=== PATIENT | female | born 1940 | race Caucasian/White ===

== ENCOUNTER 2017-02-03 21:49 | Inpatient (IN) | payer MEDICARE, OTHER ==
[~2017-02-03] VITALS: Ht 160 cm; Wt 63.5 kg
[~2017-02-03 21:49] MED LIST: ALPR0.5T3 PO; AMIO200T PO; ASPI-516 CHEW; Aquaphor Oint TOPICAL; BISA10SU3 RECTAL; CALC200S NASAL; CHLO.12%30 SWISH-SPIT; COMMODE PAIL WI1 MIS; COUM10TA PO; DILT60TA PO; DOCU100C15 PO; FAMO40TA PO; FENT50DI T-DERMAL; HOSP BED1; METO10TA PO; MIRA3350 PO; Metoclopramide Liq PO; QUET1TAB8 PO; SUCR1TAB PO; TYLE325T PO; WHEEMIS3
[2017-02-03] MEDS ORDERED: FAMO20TA2 PO (22:01)
[2017-02-03] MEDS ORDERED: COUM5TAB PO (22:31)
[2017-02-03] MEDS ORDERED: ALPR.25 PO (22:34)
[2017-02-03 23:35] VITALS: BP 127/59; PULSE 68; RESP 28; TEMP 98.4; O2SAT 99
[2017-02-03 23:55] VITALS: O2SAT 93
[2017-02-04] VITALS (21 sets, daily range): BP systolic 107–175; BP diastolic 56–89; PULSE 55–104; RESP 19–32; TEMP 98.4–100.2; O2SAT 91–100
[2017-02-04] MEDS ORDERED: ONDANSETRON HCL 4 MG/2 ML VIAL IVP PRN
[2017-02-04] MEDS ORDERED: NALOXONE HCL 0.4 MG/ML AMP IV PUSH PRN
[2017-02-04] MEDS ORDERED: BISACODYL 10 MG SUPP RECTAL PRN ×2 (00:15→01:15)
[2017-02-04] MEDS ORDERED: ACETAMINOPHEN 325 MG TAB PO PRN (00:15)
--- NOTE | 2017-02-04 00:22 | PD.CONS ---
[facility] Service Critical Care Medicine Consult Requested By Primary Care Physician Naeem Monteiro M.D. History of Present Illness 76-year-old female admitted to [place] rehabilitation medicine services for rehabilitation management after prolonged hospitalization at [facility]. She was admitted to [facility] with acute coronary syndrome, status post stent placement in October last year. The patient was admitted with shortness of breath active chest pain and went into V. fib cardiopulmonary arrest. At that time her potassium was 7.8 and patient underwent emergent hemodialysis. Hospital course was complicated with sepsis ESBL, respiratory failure requiring tracheostomy, PEG care for tube feedings and hemodialysis Wednesdays. Patient had a Vas-Cath placed on the left for dialysis and the port placed on the right. Patient was successfully decannulated and transferred to [facility] for further rehabilitation off deconditioning. 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 Last night, shortly after her hemodialysis, patient developed respiratory distress hypoxemia at 80s. She was immediately placed on BiPAP with improvement in oxygenation and respiratory condition and is admitted to ICU under critical care service. Review of Systems ROS Unable to obtain patient was facemask BiPAP Past Family Social History Allergies: Coded Allergies: shellfish derived (Unverified Allergy, Unknown, 11/12/16) Past Medical History Hypertension Coronary artery disease, status post stent placement End-stage renal disease on dialysis Past Surgical History Cholecystectomy Tracheostomy PEG placement Reported Medications Reported Meds & Active Scripts Active Xanax (Alprazolam) 0.25 Mg Tab 0.25 Mg PO Q8H PRN Coumadin (Warfarin) 5 Mg Tab 5 Mg PO DAILY@1600 Famotidine 20 Mg Tab 20 Mg PO HS [Metoclopramide Liq] 10 MG/10 ML Syrp 5 Mg PO QID [Aquaphor Oint] 50 APPLIC/50 GM Oint 1 Applic TOPICAL Q12HR Commode With Arms (Device) 1 Mis Mis Ea .ROUTE DIRECTED Wheelchair (Device) 1 Mis Mis Ea .ROUTE DIRECTED Hospital Bed - Electric 1 Ea Ea Ea .ROUTE DIRECTED Reported Sucralfate 1 Gram Tab 1 Gm PO TID on empty stomach Quetiapine (Quetiapine Fumarate) 100 Mg Tab 100 Mg PO BID Miralax Powder (Polyethylene Glycol 3350 Powder) 17 Gm Powd 17 Gm PO DAILY Mix and dissolve one measuring cap-ful (17 grams) in water or juice. Fentanyl Patch 72 HR (Fentanyl) 50 Mcg/Hr Patch 50 Mcg T-DERMAL Q72H Remove old patch when new one placed. Docusate Sodium 100 Mg Cap 100 Mg PO BID Diltiazem (Diltiazem HCl) 60 Mg Tab 60 Mg PO QID Calcitonin ([place]) Nasal [place] (Calcitonin [place]) 200 Units/Act Soln 1 [place] NASAL DAILY Alternate nostrils daily. Bisacodyl Supp (Bisacodyl) 10 Mg Supp 10 Mg RECTAL DAILY PRN Aspirin 81 Mg Chew 81 Mg CHEW DAILY Amiodarone (Amiodarone HCl) 200 Mg Tab 200 Mg PO DAILY Tylenol (Acetaminophen) 325 Mg Tab 325 Mg PO Q6H PRN Active Ordered Medications Current Medications Medications (Trade) Dose Ordered Sig/Yue Route PRN Reason Start Time Stop Time Status Last Admin Dose Admin Sodium Chloride (NS Flush) 2 ml UNSCH PRN IV FLUSH FLUSH AFTER USING IV ACCESS 02/04/17 00:00 UNV Sodium Chloride (NS Flush) 2 ml BID IV FLUSH 02/04/17 09:00 UNV Ondansetron HCl (Zofran Inj) 4 mg Q6H PRN IVP NAUSEA OR VOMITING 02/04/17 00:00 UNV Naloxone HCl (Narcan Inj) 0.4 mg UNSCH PRN IV PUSH SEE LABEL COMMENTS 02/04/17 00:00 UNV Family History Family history positive for hypertension diabetes Social History Smoker quit 15 years ago No history of alcohol use Physical Exam Vital Signs Vital Signs Date Time Temp Pulse Resp B/P (MAP) Pulse Ox O2 Delivery O2 Flow Rate FiO2 02/03/17 23:55 93 35 02/03/17 23:35 98.4 68 28 127/59 (81) 99 Physical Exam GENERAL: Well-nourished, well-developed patient. On facemask BiPAP SKIN: Warm and dry. HEAD: Normocephalic. EYES: No scleral icterus. No injection or drainage. NECK: Supple, trachea midline. No JVD or lymphadenopathy. CARDIOVASCULAR: Regular rate and rhythm without murmurs, gallops, or rubs. RESPIRATORY: Breath sounds equal bilaterally. No accessory muscle use. GASTROINTESTINAL: Abdomen soft, non-tender, nondistended. MUSCULOSKELETAL: No cyanosis, or edema. BACK: Nontender without obvious deformity. NEURO EXAM: Mental Status: Patient is arousable awake in respiratory distress on facemask BiPAP Cranial Nerves: Pupils are round, reactive to light. Reflexes: Biceps, patellar, and Achilles are 2/4 bilaterally. No clonus. Assessment and Plan Assessment and Plan Respiratory failure - Fluid overload - May require additional hemodialysis today - BiPAP for now, tolerating well and improving - Monitor in ICU - DuoNeb scheduled and when necessary End-stage renal disease - Hemodialysis per nephrology Hypertension - Currently normotensive - Hydralazine and labetalol when necessary to keep SBP less than 150 Coronary artery disease - status post stent placement - Aspirin - Statins Encephalopathy - Status post cardiac arrest - Seroquel History of V. fib arrest - Amiodarone - Diltiazem - Coumadin ??? DVT GI prophylaxis - Teds SCDs - Coumadin - Pepcid Critical Care: The total critical care time was 35 minutes. Time to perform other separately billable procedures was not included in the critical care time. Arnol Arriaza MD Feb 04, 2017 00:22
[2017-02-04] MEDS ORDERED: MAGNESIUM HYDROXIDE SUSP 30 ML CUP PO PRN (01:15)
[2017-02-04] MEDS ORDERED: LACTULOSE SYRUP 20 GM/30 ML CUP PO PRN (01:15)
[2017-02-04] MEDS ORDERED: SODIUM CHLORIDE 0.9% FLUSH 10 ML FLUSH IV FLUSH PRN ×2 (01:15)
[2017-02-04] MEDS ORDERED: CHLORHEXIDINE GLUCONATE 2 % 1 PACK (2 CLOTHS) TOP PRN (01:15)
[2017-02-04] MEDS ORDERED: SENNOSIDES 8.6 MG TAB PO PRN (01:15)
[2017-02-04] MEDS ORDERED: HEPARIN SODIUM - SQ 10,000 UNITS/ML VIAL SQ SCH (01:15)
[2017-02-04] MEDS ORDERED: ONDANSETRON HCL 4 MG/2 ML VIAL IV PUSH PRN (01:15)
[2017-02-04] MEDS ORDERED: MISCELLANEOUS NURSING INFORMATION XX SCH (01:15)
--- NOTE | 2017-02-04 01:21 | HHI.HP ---
HPI Service Critical Care Medicine Primary Care Physician Naeem Monteiro M.D. Admission Diagnosis Diagnosis: Travel History International Travel<30 Days: No Contact w/Intl Traveler <30 Da: No Traveled to Known Affected Are: No History of Present Illness 76-year-old female admitted to [facility] medicine services for rehabilitation management after prolonged hospitalization at [facility]. She was admitted to [facility] with acute coronary syndrome, status post stent placement in October last year. The patient was admitted with shortness of breath active chest pain and went into V. fib cardiopulmonary arrest. At that time her potassium was 7.8 and patient underwent emergent hemodialysis. Hospital course was complicated with sepsis ESBL, respiratory failure requiring tracheostomy, PEG care for tube feedings and hemodialysis Wednesdays. Patient had a Vas-Cath placed on the left for dialysis and the port placed on the right. Patient was successfully decannulated and transferred to [facility] for further rehabilitation off deconditioning. 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 Last night, shortly after her hemodialysis, patient developed respiratory distress hypoxemia at 80s. She was immediately placed on BiPAP with improvement in oxygenation and respiratory condition and is admitted to ICU under critical care service. Review of Systems ROS Unable to obtain patient was facemask BiPAP Past Family Social History Allergies: Coded Allergies: shellfish derived (Unverified Allergy, Unknown, 11/12/16) Past Medical History Hypertension Coronary artery disease, status post stent placement End-stage renal disease on dialysis Past Surgical History Cholecystectomy Tracheostomy PEG placement Reported Medications Reported Meds & Active Scripts Active Xanax (Alprazolam) 0.25 Mg Tab 0.25 Mg PO Q8H PRN Coumadin (Warfarin) 5 Mg Tab 5 Mg PO DAILY@1600 Famotidine 20 Mg Tab 20 Mg PO HS [Metoclopramide Liq] 10 MG/10 ML Syrp 5 Mg PO QID [Aquaphor Oint] 50 APPLIC/50 GM Oint 1 Applic TOPICAL Q12HR Commode With Arms (Device) 1 Mis Mis Ea .ROUTE DIRECTED Wheelchair (Device) 1 Mis Mis Ea .ROUTE DIRECTED Hospital Bed - Electric 1 Ea Ea Ea .ROUTE DIRECTED Reported Sucralfate 1 Gram Tab 1 Gm PO TID on empty stomach Quetiapine (Quetiapine Fumarate) 100 Mg Tab 100 Mg PO BID Miralax Powder (Polyethylene Glycol 3350 Powder) 17 Gm Powd 17 Gm PO DAILY Mix and dissolve one measuring cap-ful (17 grams) in water or juice. Fentanyl Patch 72 HR (Fentanyl) 50 Mcg/Hr Patch 50 Mcg T-DERMAL Q72H Remove old patch when new one placed. Docusate Sodium 100 Mg Cap 100 Mg PO BID Diltiazem (Diltiazem HCl) 60 Mg Tab 60 Mg PO QID Calcitonin ([place]) Nasal [place] (Calcitonin [place]) 200 Units/Act Soln 1 [place] NASAL DAILY Alternate nostrils daily. Bisacodyl Supp (Bisacodyl) 10 Mg Supp 10 Mg RECTAL DAILY PRN Aspirin 81 Mg Chew 81 Mg CHEW DAILY Amiodarone (Amiodarone HCl) 200 Mg Tab 200 Mg PO DAILY Tylenol (Acetaminophen) 325 Mg Tab 325 Mg PO Q6H PRN Active Ordered Medications Current Medications Medications (Trade) Dose Ordered Sig/Yue Route PRN Reason Start Time Stop Time Status Last Admin Dose Admin Sodium Chloride (NS Flush) 2 ml UNSCH PRN IV FLUSH FLUSH AFTER USING IV ACCESS 02/04/17 00:00 Sodium Chloride (NS Flush) 2 ml BID IV FLUSH 02/04/17 09:00 Ondansetron HCl (Zofran Inj) 4 mg Q6H PRN IVP NAUSEA OR VOMITING 02/04/17 00:00 Naloxone HCl (Narcan Inj) 0.4 mg UNSCH PRN IV PUSH SEE LABEL COMMENTS 02/04/17 00:00 Acetaminophen (Tylenol) 325 mg Q6H PRN PO INCREASED TEMPERATURE 02/04/17 00:15 Alprazolam (Xanax) 0.25 mg Q8H PRN PO ANXIETY 02/04/17 00:15 Amiodarone HCl (Cordarone) 200 mg DAILY PO 02/04/17 09:00 Aspirin (Aspirin Chew) 81 mg DAILY CHEW 02/04/17 09:00 Bisacodyl (Dulcolax Supp) 10 mg DAILY PRN RECTAL CONSTIPATION 02/04/17 00:15 Diltiazem HCl (Cardizem) 60 mg QID PO 02/04/17 09:00 Docusate Sodium (Colace) 100 mg BID PO 02/04/17 09:00 Famotidine (Pepcid) 20 mg HS PO 02/04/17 21:00 Fentanyl (Duragesic 50 Mcg Patch.72 Hr) 1 patch Q72H T-DERMAL 02/04/17 01:00 Polyethylene Glycol (Miralax) 17 gm DAILY PO 02/04/17 09:00 Quetiapine Fumarate (SEROquel) 100 mg BID PO 02/04/17 09:00 Sucralfate (Carafate) 1 gm TID PO 02/04/17 09:00 Warfarin Sodium (Coumadin) 5 mg DAILY@1600 PO 02/04/17 16:00 Miscellaneous Information 1 Q72H T-DERMAL 02/04/17 01:00 Family History Family history positive for hypertension diabetes Social History Smoker quit 15 years ago No history of alcohol use Physical Exam Vital Signs Vital Signs Date Time Temp Pulse Resp B/P (MAP) Pulse Ox O2 Delivery O2 Flow Rate FiO2 02/03/17 23:55 93 35 02/03/17 23:35 98.4 68 28 127/59 (81) 99 Physical Exam GENERAL: Well-nourished, well-developed patient. On facemask BiPAP SKIN: Warm and dry. HEAD: Normocephalic. EYES: No scleral icterus. No injection or drainage. NECK: Supple, trachea midline. No JVD or lymphadenopathy. CARDIOVASCULAR: Regular rate and rhythm without murmurs, gallops, or rubs. RESPIRATORY: Breath sounds equal bilaterally. No accessory muscle use. GASTROINTESTINAL: Abdomen soft, non-tender, nondistended. MUSCULOSKELETAL: No cyanosis, or edema. BACK: Nontender without obvious deformity. NEURO EXAM: Mental Status: Patient is arousable awake in respiratory distress on facemask BiPAP Cranial Nerves: Pupils are round, reactive to light. Reflexes: Biceps, patellar, and Achilles are 2/4 bilaterally. No clonus. Laboratory Laboratory Tests Test 02/03/17 23:00 Caprini VTE Risk Assessment Caprini VTE Risk Assessment: Mod/High Risk (score >= 2) Caprini Risk Assessment Model Point Value = 1 Point Value = 2 Point Value = 3 Point Value = 5 Age 41-60 Minor surgery BMI > 25 kg/m2 Swollen legs Varicose veins or History of unexplained or recurrent spontaneous Oral contraceptives or hormone replacement Sepsis (< 1 month) Serious lung disease, including pneumonia (< 1 month) Abnormal pulmonary function Acute myocardial infarction Congestive heart failure (< 1 month) History of inflammatory bowel disease Medical patient at bed rest Age 61-74 Arthroscopic surgery Major open surgery (> 45 min) Laparoscopic surgery (> 45 min) Malignancy Confined to bed (> 72 hours) Immobilizing plaster cast Central venous access Age >= 75 History of VTE Family history of VTE Factor V Leiden Prothrombin [id number] Lupus anticoagulant Anticardiolipin antibodies Elevated serum homocysteine Heparin-induced thrombocytopenia Other congenital or acquired thrombophilia Stroke (< 1 month) Elective arthroplasty Hip, pelvis, or leg fracture Acute spinal cord injury (< 1 month) Prophylaxis Regimen Total Risk Factor Score Risk Level Prophylaxis Regimen 0-1 Low Early ambulation 2 Moderate Order ONE of the following: *Sequential Compression Device (SCD) *Heparin 5000 units SQ BID 3-4 Higher Order ONE of the following medications: *Heparin 5000 units SQ TID *Enoxaparin/Lovenox 40 mg SQ daily (WT < 150 kg, CrCl > 30 mL/min) *Enoxaparin/Lovenox 30 mg SQ daily (WT < 150 kg, CrCl > 10-29 mL/min) *Enoxaparin/Lovenox 30 mg SQ BID (WT < 150 kg, CrCl > 30 mL/min) AND/OR *Sequential Compression Device (SCD) 5 or more Highest Order ONE of the following medications: *Heparin 5000 units SQ TID (Preferred with Epidurals) *Enoxaparin/Lovenox 40 mg SQ daily (WT < 150 kg, CrCl > 30 mL/min) *Enoxaparin/Lovenox 30 mg SQ daily (WT < 150 kg, CrCl > 10-29 mL/min) *Enoxaparin/Lovenox 30 mg SQ BID (WT < 150 kg, CrCl > 30 mL/min) AND *Sequential Compression Device (SCD) Assessment and Plan Assessment and Plan Respiratory failure - Fluid overload - May require additional hemodialysis today - BiPAP for now, tolerating well and improving - Monitor in ICU - DuoNeb scheduled and when necessary End-stage renal disease - Hemodialysis per nephrology Hypertension - Currently normotensive - Hydralazine and labetalol when necessary to keep SBP less than 150 Coronary artery disease - status post stent placement - Aspirin - Statins Encephalopathy - Status post cardiac arrest - Seroquel History of V. fib arrest - Amiodarone - Diltiazem - Coumadin ??? DVT GI prophylaxis - Teds SCDs - Coumadin - Pepcid Critical Care: The total critical care time was 35 minutes. Time to perform other separately billable procedures was not included in the critical care time. Arnol Arriaza MD Feb 04, 2017 01:20
[2017-02-04 02:45] LABS: AUTOMATED NEUTROPHIL # 6.9 TH/MM3 (1.8-7.7); BASOPHIL # 0.1 TH/MM3 (0-0.2); BASOPHIL % 0.7 % (0.0-2.0); EOSINOPHIL # 0.1 TH/MM3 (0-0.4); EOSINOPHIL % 0.7 % (0.0-4.0); HEMATOCRIT 23.7 % (35.0-46.0); HEMO FLAGS DIFF FINAL; LYMPH % 4.9 % (9.0-44.0); LYMPHOCYTE # 0.4 TH/MM3 (1.0-4.8); MEAN CELL VOLUME 91.4 FL (80.0-100.0); MEAN CORPUSCULAR HEMOGLOBIN 29.1 PG (27.0-34.0); MEAN CORPUSCULAR HGB CONC 31.9 % (32.0-36.0); MONO % 4.1 % (0.0-8.0); NEUT % 89.6 % (16.0-70.0); PLATELET COUNT 160 TH/MM3 (150-450); RED CELL DISTRIBUTION WIDTH 18.1 % (11.6-17.2); WHITE BLOOD COUNT 7.7 TH/MM3 (4.0-11.0)
[2017-02-04 03:00] LABS: ANION GAP 7 MEQ/L (5-15); AST (GOT) 19 U/L (15-37); BICARBONATE 32.1 MEQ/L (21.0-32.0); BLOOD UREA NITROGEN 29 MG/DL (7-18); CHLORIDE 96 MEQ/L (98-107); GLOMERULAR FILTRATION RATE 30 ML/MIN (>89); POTASSIUM 4.2 MEQ/L (3.5-5.1); SODIUM (NA) 135 MEQ/L (136-145)
[2017-02-04 03:03] LABS: ALKALINE PHOSPHATASE 99 U/L (45-117); ALT (GPT) 22 U/L (10-53); TOTAL BILIRUBIN ADULT 0.4 MG/DL (0.2-1.0)
[2017-02-04] MEDS: ALPRAZolam 0.25 MG TAB PO PRN ×3 (03:24→20:40)
[2017-02-04] MEDS: RESP: ALBUTEROL 2.5 MG/IPRATROPIUM 0.5 MG NEB (SCH) INH ×4 (03:36→21:35)
[2017-02-04] MEDS: CHLORHEXIDINE GLUCONATE 2 % 1 PACK (2 CLOTHS) TOP SCH (04:00)
[2017-02-04 06:44] LABS: BLOOD GAS BASE EXCESS 7.2 mmol/L (-2-2); BLOOD GAS HCO3 32 mmol/L (22-26); BLOOD GAS METHEMOGLOBIN 1.2 % (0-2); BLOOD GAS O2 HGB SATURATION 86 % (90-100); BLOOD GAS PCO2 49 mmHg (38-42); BLOOD GAS PO2 54 mmHg (61-120); BLOOD GAS TOTAL HGB 7.4 G/DL (12.0-16.0); TEMP CORR TO 98.6
[2017-02-04 06:46] LABS: CRITICAL VALUE YES; DRAW SITE LT RADIAL; FIO2 35 %; NUMBER OF ARTERIAL PUNCTURES 1; OXYGEN DEVICE BIPAP; STAT NO; ULNAR PULSE PRESENT
[2017-02-04 06:47] LABS: VENT SETTINGS SEE COMMENT.
[2017-02-04] MEDS: SUCRALFATE 1 GM TAB PO SCH ×3 (08:09→16:49)
[2017-02-04] MEDS: SODIUM CHLORIDE 0.9% FLUSH 10 ML FLUSH IV FLUSH SCH ×2 (08:10→20:41)
[2017-02-04] MEDS: ASPIRIN 81 MG CHEW TAB CHEW SCH (08:10)
[2017-02-04] MEDS: DILTIAZEM HCL 60 MG TAB PO SCH ×4 (08:10→20:40)
[2017-02-04] MEDS: QUEtiapine FUMARATE 100 MG TAB PO SCH ×2 (08:10→20:40)
[2017-02-04] MEDS: AMIODARONE 200 MG TAB PO SCH (08:10)
[2017-02-04] MEDS: DOCUSATE SODIUM 100 MG CAP PO SCH ×2 (08:11→20:40)
[2017-02-04] MEDS: POLYETHYLENE GLYCOL 17 GM PKG PO SCH (08:11)
[2017-02-04] MEDS: DOCUSATE SODIUM 50 MG/SENNA 8.6 MG TAB PO SCH ×2 (08:11→20:40)
[2017-02-04] MEDS: CALCITONIN SALM 200 UNIT/SPRAY 3.7 ML BTLN NASAL SCH (08:11)
[2017-02-04] MEDS ORDERED: FAMOTIDINE 20 MG/2 ML VIAL IV PUSH SCH (09:00)
[2017-02-04] MEDS ORDERED: SODIUM CHLORIDE 0.9% FLUSH 10 ML FLUSH IV FLUSH SCH (09:00)
--- NOTE | 2017-02-04 11:08 | PD.CONS ---
HPI Service Nephrology Consult Requested By Reason for Consult Management of dialysis Primary Care Physician Naeem Monteiro M.D. History of Present Illness This is a 76 y/o female. She was transferred from [facility] after dialysis when she suddenly came short of breath. Her PMH includes A fib/flutter on chronic Coumadin, HTN, hyperlipidemia, CAD/ischemic cardiomyopathy. She also has CKD. In October she was seen in [place] [facility] with acute hyperkalemia and suffered cardiac arrest. She did survive, was on the ventilator for prolonged period with a trach, eventually weened off the vent and trach, and transferred to [facility] and later to [facility]. The patient had to be dialyzed emergently at [place] due to hyperkalemia. She has been on MWF HD since , has a permcath on the left for HD use. We were consulted for dialysis management this admission. Her creatinine for the past few days was 2.5-2.9, however this week has been running 1.4-1.7. This morning the nurse reports 300 ml fluid removal. Chest xray and lung sounds consistent with pulmonary edema. There is no gross volume overload on exam. Yesterday 1.6 liters was removed during treatment. Her hemoglobin is low at 7.6. Of note she and her are from [place]. (Jovanna Ramires) Review of Systems Constitutional: COMPLAINS OF: Fatigue Respiratory: COMPLAINS OF: Shortness of breath, DENIES: Cough Cardiovascular: DENIES: Chest pain, Dyspnea on Exertion, Lower Extremity Edema (Jovanna Ramires) Past Family Social History Allergies: Coded Allergies: shellfish derived (Unverified Allergy, Unknown, 11/12/16) Past Medical History ESRD on HD HTN Ischemic Cardiomyopathy Anemia A flutter/Fib on Coumadin Hyperlipidemia GERD Chronic pain Past Surgical History GB Trach PEG Permcath Reported Medications Xanax (Alprazolam) 0.25 Mg Tab 0.25 Mg PO Q8H PRN Coumadin (Warfarin) 5 Mg Tab 5 Mg PO DAILY@1600 Famotidine 20 Mg Tab 20 Mg PO HS [Metoclopramide Liq] 10 MG/10 ML Syrp 5 Mg PO QID [Aquaphor Oint] 50 APPLIC/50 GM Oint 1 Applic TOPICAL Q12HR Commode With Arms (Device) 1 Mis Mis Ea .ROUTE DIRECTED Wheelchair (Device) 1 Mis Mis Ea .ROUTE DIRECTED Hospital Bed - Electric 1 Ea Ea Ea .ROUTE DIRECTED Sucralfate 1 Gram Tab 1 Gm PO TID on empty stomach Quetiapine (Quetiapine Fumarate) 100 Mg Tab 100 Mg PO BID Miralax Powder (Polyethylene Glycol 3350 Powder) 17 Gm Powd 17 Gm PO DAILY Mix and dissolve one measuring cap-ful (17 grams) in water or juice. Fentanyl Patch 72 HR (Fentanyl) 50 Mcg/Hr Patch 50 Mcg T-DERMAL Q72H Remove old patch when new one placed. Docusate Sodium 100 Mg Cap 100 Mg PO BID Diltiazem (Diltiazem HCl) 60 Mg Tab 60 Mg PO QID Calcitonin ([place]) Nasal [place] (Calcitonin [place]) 200 Units/Act Soln 1 [place] NASAL DAILY Alternate nostrils daily. Bisacodyl Supp (Bisacodyl) 10 Mg Supp 10 Mg RECTAL DAILY PRN Aspirin 81 Mg Chew 81 Mg CHEW DAILY Amiodarone (Amiodarone HCl) 200 Mg Tab 200 Mg PO DAILY Tylenol (Acetaminophen) 325 Mg Tab 325 Mg PO Q6H PRN Active Ordered Medications Current Medications Medications (Trade) Dose Ordered Sig/Yue Route Start Time Stop Time Status Last Admin (Narcan Inj) 0.4 mg UNSCH PRN IV PUSH 02/04/17 00:00 (Tylenol) 325 mg Q6H PRN PO 02/04/17 00:15 (Xanax) 0.25 mg Q8H PRN PO 02/04/17 00:15 02/04/17 03:24 (Cordarone) 200 mg DAILY PO 02/04/17 09:00 02/04/17 08:10 (Aspirin Chew) 81 mg DAILY CHEW 02/04/17 09:00 02/04/17 08:10 (Cardizem) 60 mg QID PO 02/04/17 09:00 02/04/17 08:10 (Colace) 100 mg BID PO 02/04/17 09:00 (Pepcid) 20 mg HS PO 02/04/17 21:00 (Duragesic 50 Mcg Patch.72 Hr) 1 patch Q72H T-DERMAL 02/04/17 01:00 (Miralax) 17 gm DAILY PO 02/04/17 09:00 (SEROquel) 100 mg BID PO 02/04/17 09:00 02/04/17 08:10 (Carafate) 1 gm TID PO 02/04/17 09:00 02/04/17 08:09 (Coumadin) 5 mg DAILY@1600 PO 02/04/17 16:00 Miscellaneous Information 1 Q72H T-DERMAL 02/04/17 01:00 (NS Flush) 2 ml UNSCH PRN IV FLUSH 02/04/17 01:15 (NS Flush) 2 ml BID IV FLUSH 02/04/17 09:00 02/04/17 08:10 (Tylenol) 650 mg Q6H PRN PO 02/04/17 01:15 (Morphine Inj) 2 mg Q2H PRN IV 02/04/17 01:30 (Pepcid Inj) 20 mg Q12HR IV PUSH 02/04/17 09:00 02/04/17 08:11 (Zofran Inj) 4 mg Q6H PRN IV PUSH 02/04/17 01:15 (Duoneb Neb) 1 ampule Q6HR NEB INH 02/04/17 04:00 02/04/17 09:31 (Duoneb Neb) 1 ampule Q2HR NEB PRN INH 02/04/17 01:15 Miscellaneous Information 1 Q361D XX 02/04/17 01:15 (Chlorhexidine 2% Cloth) 3 pack Taper DAILY@04 TOP 02/04/17 04:00 01/31/18 03:59 02/04/17 04:00 (Chlorhexidine 2% Cloth) 3 pack UNSCH PRN TOP 02/04/17 01:15 (Jacqueline-Colace) 1 tab BID PO 02/04/17 09:00 (Milk Of Magnesia Liq) 30 ml Q12H PRN PO 02/04/17 01:15 (Senokot) 17.2 mg Q12H PRN PO 02/04/17 01:15 (Dulcolax Supp) 10 mg DAILY PRN RECTAL 02/04/17 01:15 (Lactulose Liq) 30 ml DAILY PRN PO 02/04/17 01:15 Pharmacy Profile Note 0 ml @ 0 mls/hr UNSCH OTHER 02/04/17 01:45 (Flu (Quadrivalent) Vaccine Inj) 0.5 ml ONCE ONCE IM 02/05/17 10:00 02/05/17 10:01 Family History No hx of renal disorders Social History She is (Jovanna Ramires) Physical Exam Vital Signs Vital Signs Date Time Temp Pulse Resp B/P (MAP) Pulse Ox O2 Delivery O2 Flow Rate FiO2 02/04/17 10:00 64 02/04/17 09:45 92 Nasal Cannula 3.00 02/04/17 08:00 78 02/04/17 08:00 98.4 78 20 159/89 (112) 100 02/04/17 06:00 81 02/04/17 06:00 81 20 175/86 (115) 98 02/04/17 05:00 58 20 115/65 (82) 91 02/04/17 04:00 98.6 58 19 147/67 (93) 96 02/04/17 04:00 68 02/04/17 03:23 100 35 02/04/17 03:00 58 23 129/63 (85) 98 02/04/17 02:00 57 02/04/17 02:00 57 21 151/67 (95) 99 02/04/17 01:00 55 23 146/63 (90) 97 02/04/17 00:00 59 02/04/17 00:00 59 25 107/56 (73) 94 02/03/17 23:55 93 35 02/03/17 23:35 98.4 68 28 127/59 (81) 99 Physical Exam Elderly female, she is sleepy Oriented x 2-3 when awake S1/S2, irreg irreg, A flutter 2:1, no murmurs Permcath left; port a cath left Abdomen is soft, obese, non tender, + PEG No extremity edema Laboratory Laboratory Tests Test 02/03/17 23:00 02/04/17 02:25 02/04/17 06:38 02/04/17 09:37 Nasal Screen MRSA (PCR) MRSA NOT DETECTED White Blood Count 7.7 Red Blood Count 2.60 Hemoglobin 7.6 Hematocrit 23.7 Mean Corpuscular Volume 91.4 Mean Corpuscular Hemoglobin 29.1 Mean Corpuscular Hemoglobin Concent 31.9 Red Cell Distribution Width 18.1 Platelet Count 160 Mean Platelet Volume 7.5 Neutrophils (%) (Auto) 89.6 Lymphocytes (%) (Auto) 4.9 Monocytes (%) (Auto) 4.1 Eosinophils (%) (Auto) 0.7 Basophils (%) (Auto) 0.7 Neutrophils # (Auto) 6.9 Lymphocytes # (Auto) 0.4 Monocytes # (Auto) 0.3 Eosinophils # (Auto) 0.1 Basophils # (Auto) 0.1 CBC Comment DIFF FINAL Differential Comment Blood Urea Nitrogen 29 Creatinine 1.65 Random Glucose 120 Total Protein 6.5 Albumin 3.4 Calcium Level 8.7 Alkaline Phosphatase 99 Aspartate Amino Transf (AST/SGOT) 19 Alanine Aminotransferase (ALT/SGPT) 22 Total Bilirubin 0.4 Sodium Level 135 Potassium Level 4.2 Chloride Level 96 Carbon Dioxide Level 32.1 Anion Gap 7 Estimat Glomerular Filtration Rate 30 Troponin I 0.21 0.23 Blood Gas Puncture Site LT RADIAL Blood Gas Patient Temperature 98.6 Blood Gas HCO3 32 Blood Gas Base Excess 7.2 Blood Gas Oxygen Saturation 86 Arterial Blood pH 7.43 Arterial Blood Partial Pressure CO2 49 Arterial Blood Partial Pressure O2 54 Arterial Blood Oxygen Content 9.0 Arterial Blood Carboxyhemoglobin 2.0 Arterial Blood Methemoglobin 1.2 Blood Gas Hemoglobin 7.4 Oxygen Delivery Device BIPAP Blood Gas Ventilator Setting SEE COMMENT. Blood Gas Inspired Oxygen 35 (Jovanna Ramires) Result Diagram: 02/04/1722402/04/17224 Assessment and Plan Problem List: (1) Acute renal failure ICD Codes: N17.9 - Acute kidney failure, unspecified Plan: She has been maintained on MWF HD, 1.6 L UF yesterday However her creatinine is improving, may have suffered ATN from cardiac arrest that is now improving She is non oliguric Start Bumex 2 mg TID IV, monitor response Repeat labs tomorrow It remains to be seen if she will require fci dialysis shortness of breath may have been due to anxiety HD tomorrow if needed Avoid IVF, nephrotoxic agents, renally dose when appropriate (2) Anemia in chronic renal disease ICD Codes: N18.9 - Chronic kidney disease, unspecified; D63.1 - Anemia in chronic kidney disease Status: Chronic Plan: Was receiving Epogen with dialysis Check iron stores (3) Hypertension, essential ICD Codes: I10 - Essential (primary) hypertension Plan: She is no on antihypertensives Monitor blood pressure (4) Impaired mobility and activities of daily living ICD Codes: Z74.09 - Other reduced mobility Plan: Needs aggressive PT/OT (5) Atrial flutter ICD Codes: I48.92 - Unspecified atrial flutter Plan: On dose adjusted coumadin and amiodarone (Jovanna Ramires) Assessment and Plan patient was seen and examined. She is known to me, used to be my office patient. Was admitted to [facility] with hyperkalemia and cardiac arrest, started on HD. Later transferred to [facility] where Dr. Collins took care of her. She was later transferred to [place]. Now in [place] with respiratory distress after dialysis yesterday. She appears to be non oliguric, creatinine was 1.6. Start Bumex, monitor urine output and renal function. Avoid nephrotoxic agents. Dialysis if needed. (Zoran Shipman MD) Jovanna Ramires Feb 04, 2017 11:08 Zoran Shipman MD Feb 04, 2017 13:06
[2017-02-04] MEDS: BUMETANIDE INJ 1 MG/4 ML VIAL IV PUSH SCH ×2 (12:48→16:51)
[2017-02-04] MEDS: MORPHINE SULFATE 2 MG/ML INJ IV PRN (13:11)
[2017-02-04 14:55] LABS: BLOOD GAS BASE EXCESS 5.5 mmol/L (-2-2); BLOOD GAS HCO3 30 mmol/L (22-26); BLOOD GAS METHEMOGLOBIN 1.1 % (0-2); BLOOD GAS O2 HGB SATURATION 93 % (90-100); BLOOD GAS OXYGEN CONTENT 10.5 Vol % (12.0-20.0); BLOOD GAS PCO2 50 mmHg (38-42); BLOOD GAS PO2 83 mmHg (61-120); TEMP CORR TO 98.6
[2017-02-04 14:56] LABS: CRITICAL VALUE NO; DRAW SITE RT RADIAL; FIO2 50 %; NUMBER OF ARTERIAL PUNCTURES 1; OXYGEN DEVICE BIPAP 15IPAP/5EPAP; STAT YES; ULNAR PULSE PRESENT
--- NOTE | 2017-02-04 16:49 | PD.CONS ---
[facility] Service Rehabilitation Medicine Consult Requested By Ayden Pierre MD Reason for Consult Comprehensive rehabilitation evaluation. Primary Care Physician Naeem Monteiro M.D. History of Present Illness Kaya Buckley is a 76-year-old right-hand dominant female who was admitted to [facility] 11/14/16 which chest pain or shortness of breath. Heart rate was 30. Patient was noted to have third-degree heart block and sudden cardiac arrest. She required intubation and ACLS protocol for V. fib. Potassium on admission was noted to be 7.8 and she received dialysis. She subsequently required trach and PEG 11/26/16. She was transferred to [facility] 11/26/16. She was admitted to [facility] for inpatient rehabilitation 01/23/17. During her rehabilitation stay she was able to progress functionally in all areas. Trach care was provided and trach site was closed. Patient's diet was advanced and PEG was planned to be removed 02/06/17. Discharge home was anticipated 02/07/17 with continued home health. Pain management follow-up for morphine pump had been arranged per case management. On 02/03/17 patient required admission to acute care due to decline in respiratory status/hypoxia with O2 saturation in the 80s. She initially responded to BiPAP. Review of Systems Constitutional: COMPLAINS OF: Fatigue Eyes: DENIES: Diplopia Ears, nose, mouth, throat: COMPLAINS OF: Hearing loss Respiratory: COMPLAINS OF: Shortness of breath Cardiovascular: DENIES: Chest pain Gastrointestinal: DENIES: Abdominal pain Musculoskeletal: DENIES: Back pain Integumentary: DENIES: Pruritus Hematologic/lymphatic: COMPLAINS OF: Bruising Neurologic: DENIES: Headache Psychiatric: DENIES: Confusion Past Family Social History Allergies: Coded Allergies: shellfish derived (Unverified Allergy, Unknown, 11/12/16) Past Medical History ESRD on HD HTN Ischemic Cardiomyopathy Anemia A flutter/Fib on Coumadin Hyperlipidemia GERD Chronic pain Past Surgical History Implanted pain pump Tracheostomy PEG Permcath Current Medications Current Medications Medications (Trade) Dose Ordered Sig/Yue Route Start Time Stop Time Status Last Admin (Narcan Inj) 0.4 mg UNSCH PRN IV PUSH 02/04/17 00:00 (Tylenol) 325 mg Q6H PRN PO 02/04/17 00:15 (Xanax) 0.25 mg Q8H PRN PO 02/04/17 00:15 02/04/17 12:47 (Cordarone) 200 mg DAILY PO 02/04/17 09:00 02/04/17 08:10 (Aspirin Chew) 81 mg DAILY CHEW 02/04/17 09:00 02/04/17 08:10 (Cardizem) 60 mg QID PO 02/04/17 09:00 02/04/17 12:47 (Colace) 100 mg BID PO 02/04/17 09:00 (Duragesic 50 Mcg Patch.72 Hr) 1 patch Q72H T-DERMAL 02/04/17 01:00 (Miralax) 17 gm DAILY PO 02/04/17 09:00 (SEROquel) 100 mg BID PO 02/04/17 09:00 02/04/17 08:10 (Carafate) 1 gm TID PO 02/04/17 09:00 02/04/17 12:47 (Coumadin) 5 mg DAILY@1600 PO 02/04/17 16:00 Miscellaneous Information 1 Q72H T-DERMAL 02/04/17 01:00 (NS Flush) 2 ml UNSCH PRN IV FLUSH 02/04/17 01:15 (NS Flush) 2 ml BID IV FLUSH 02/04/17 09:00 02/04/17 08:10 (Tylenol) 650 mg Q6H PRN PO 02/04/17 01:15 (Morphine Inj) 2 mg Q2H PRN IV 02/04/17 01:30 02/04/17 13:11 (Zofran Inj) 4 mg Q6H PRN IV PUSH 02/04/17 01:15 (Duoneb Neb) 1 ampule Q6HR NEB INH 02/04/17 04:00 02/04/17 16:35 (Duoneb Neb) 1 ampule Q2HR NEB PRN INH 02/04/17 01:15 Miscellaneous Information 1 Q361D XX 02/04/17 01:15 (Chlorhexidine 2% Cloth) 3 pack Taper DAILY@04 TOP 02/04/17 04:00 01/31/18 03:59 02/04/17 04:00 (Chlorhexidine 2% Cloth) 3 pack UNSCH PRN TOP 02/04/17 01:15 (Jacqueline-Colace) 1 tab BID PO 02/04/17 09:00 (Milk Of Magnesia Liq) 30 ml Q12H PRN PO 02/04/17 01:15 (Senokot) 17.2 mg Q12H PRN PO 02/04/17 01:15 (Dulcolax Supp) 10 mg DAILY PRN RECTAL 02/04/17 01:15 (Lactulose Liq) 30 ml DAILY PRN PO 02/04/17 01:15 Pharmacy Profile Note 0 ml @ 0 mls/hr UNSCH OTHER 02/04/17 01:45 (Flu (Quadrivalent) Vaccine Inj) 0.5 ml ONCE ONCE IM 02/05/17 10:00 02/05/17 10:01 (Bumex Inj) 2 mg TID IV PUSH 02/04/17 13:00 02/04/17 12:48 (Pepcid Inj) 10 mg Q12HR IV PUSH 02/04/17 21:00 Family History Hypertension/diabetes mellitus Social History Prior to admission patient lived with her in [place], [place]. She was independent with mobility and ADLs Exam I&O / VS Vital Signs Date Time Temp Pulse Resp B/P (MAP) Pulse Ox O2 Delivery O2 Flow Rate FiO2 02/04/17 16:37 100 50 02/04/17 16:00 98.9 60 32 156/74 (101) 100 02/04/17 16:00 60 02/04/17 14:00 104 02/04/17 12:08 81 20 160/79 (106) 99 02/04/17 12:00 80 02/04/17 12:00 98.7 81 20 160/79 (106) 98 02/04/17 10:00 64 02/04/17 09:45 92 Nasal Cannula 3.00 02/04/17 08:00 78 02/04/17 08:00 98.4 78 20 159/89 (112) 100 02/04/17 06:00 81 02/04/17 06:00 81 20 175/86 (115) 98 02/04/17 05:00 58 20 115/65 (82) 91 02/04/17 04:00 98.6 58 19 147/67 (93) 96 02/04/17 04:00 68 02/04/17 03:23 100 35 02/04/17 03:00 58 23 129/63 (85) 98 02/04/17 02:00 57 02/04/17 02:00 57 21 151/67 (95) 99 02/04/17 01:00 55 23 146/63 (90) 97 02/04/17 00:00 59 02/04/17 00:00 59 25 107/56 (73) 94 02/03/17 23:55 93 35 02/03/17 23:35 98.4 68 28 127/59 (81) 99 General: No acute distress Respiratory: Lungs CTA, Non-labored respirations, BS equal, Coarse breath sounds Gastrointestinal: Positive Bowel Sounds, Distended, Non-Tender, Other (PEG in place) Cardiovascular: Normal rate, Irregular Rhythm Musculoskeletal: Tenderness (No calf tenderness), Swelling (no distal lower extremity edema) Psychiatric: Cooperative, Appropriate mood & affect Orientation: oriented to Self, oriented to Place, oriented to Situation, disoriented to Time (oriented with cues) Neurologic: EOM (tracks right and left), Speech (intelligible) Motor: Right Upper Extremity (4/5), Left Upper Extremity (4/5), Right Lower Extremity, Left Lower Extremity (4/5) Sensory Grossly intact to light touch Clonus: Negative Assessment and Plan Diagnosis: (1) Presence of implanted infusion pump ICD Codes: Z95.828 - Presence of other vascular implants and grafts Status: Chronic (2) Hypoxia ICD Codes: R09.02 - Hypoxemia (3) Impaired mobility and activities of daily living ICD Codes: Z74.09 - Other reduced mobility (4) ESRD (end stage renal disease) on dialysis ICD Codes: N18.6 - End stage renal disease; Z99.2 - Dependence on renal dialysis Status: Acute (5) Anoxic encephalopathy ICD Codes: G93.1 - Anoxic brain damage, not elsewhere classified Status: Acute (6) Atrial flutter ICD Codes: I48.92 - Unspecified atrial flutter Assessment 1. Telemetry of implanted pain pump show drug being delivered is Morphine and reservoir volume is 12.3. Alarm date is May 2017. No intervention for refilling pump required at this time. Communicated with patient's pain management service and they are aware. Telemetry information FAX to pain management office and they will schedule followup 2. Discussed with ST who has completed swallow re-evaluation and as medical status allows would continue current diet 3. PT and OT as medical status allows to mobilize 4. Will follow regarding ongoing inpatient rehabilitation. Prior to admission to [facility] patient has progressed well and was 3 days to discharge home from inpatient rehabilitation. Case management for planning. Discussed rehab plan of care with patient's and insulation worker apprentice. 5. Will follow while hospitalized and at discharge Thank you for this consult. Anushka Mejia MD Feb 04, 2017 16:49
[2017-02-04] MEDS: WARFARIN SOD 5 MG TAB PO SCH (16:50)
[2017-02-04] MEDS: FAMOTIDINE 20 MG/2 ML VIAL IV PUSH SCH (20:40)
[2017-02-04] MEDS ORDERED: FAMOTIDINE 20 MG TAB PO SCH (21:00)
[2017-02-05] VITALS (23 sets, daily range): BP systolic 78–157; BP diastolic 43–75; PULSE 49–123; RESP 18–36; TEMP 97.7–98.8; O2SAT 94–100
[2017-02-05] MEDS: CHLORHEXIDINE GLUCONATE 2 % 1 PACK (2 CLOTHS) TOP SCH (04:00)
[2017-02-05] MEDS: RESP: ALBUTEROL 2.5 MG/IPRATROPIUM 0.5 MG NEB (SCH) INH ×4 (04:24→19:12)
[2017-02-05] MEDS: ALPRAZolam 0.25 MG TAB PO PRN (04:57)
[2017-02-05 05:46] LABS: AUTOMATED NEUTROPHIL # 3.5 TH/MM3 (1.8-7.7); BASOPHIL % 0.6 % (0.0-2.0); EOSINOPHIL # 0.2 TH/MM3 (0-0.4); EOSINOPHIL % 3.7 % (0.0-4.0); HEMATOCRIT 21.6 % (35.0-46.0); LYMPHOCYTE # 0.6 TH/MM3 (1.0-4.8); MEAN CELL VOLUME 93.5 FL (80.0-100.0); MEAN CORPUSCULAR HEMOGLOBIN 30.1 PG (27.0-34.0); MEAN CORPUSCULAR HGB CONC 32.2 % (32.0-36.0); MONO % 5.2 % (0.0-8.0); NEUT % 76.5 % (16.0-70.0); PLATELET COUNT 134 TH/MM3 (150-450); RED BLOOD COUNT 2.31 MIL/MM3 (4.00-5.30); RED CELL DISTRIBUTION WIDTH 18.2 % (11.6-17.2); WHITE BLOOD COUNT 4.5 TH/MM3 (4.0-11.0)
[2017-02-05 06:03] LABS: HEMO FLAGS DIFF FINAL
[2017-02-05 06:18] LABS: INTERNATIONAL NORMALIZED RATIO 1.7 RATIO; PROTHROMBIN TIME - PATIENT 19.1 SEC (9.8-11.6)
[2017-02-05 06:20] LABS: ALKALINE PHOSPHATASE 102 U/L (45-117); ALT (GPT) 24 U/L (10-53); ANION GAP 7 MEQ/L (5-15); AST (GOT) 19 U/L (15-37); BICARBONATE 30.6 MEQ/L (21.0-32.0); BLOOD UREA NITROGEN 41 MG/DL (7-18); CHLORIDE 96 MEQ/L (98-107); GLOMERULAR FILTRATION RATE 21 ML/MIN (>89); MAGNESIUM 2.1 MG/DL (1.5-2.5); POTASSIUM 3.4 MEQ/L (3.5-5.1); SODIUM (NA) 134 MEQ/L (136-145); TOTAL BILIRUBIN ADULT 0.3 MG/DL (0.2-1.0)
[2017-02-05] MEDS ORDERED: SODIUM CHLOR 0.9% 250 ML INJ 250 ML IV ONE (08:30)
[2017-02-05] MEDS ORDERED: diphenhydrAMINE HCL 25 MG CAP PO PRN ×2 (08:30→10:15)
[2017-02-05] MEDS ORDERED: ACETAMINOPHEN 325 MG TAB PO PRN (08:30)
[2017-02-05] MEDS: QUEtiapine FUMARATE 100 MG TAB PO SCH ×2 (08:34→23:41)
[2017-02-05] MEDS: DOCUSATE SODIUM 50 MG/SENNA 8.6 MG TAB PO SCH ×2 (08:34→23:41)
[2017-02-05] MEDS: AMIODARONE 200 MG TAB PO SCH (08:34)
[2017-02-05] MEDS: DILTIAZEM HCL 60 MG TAB PO SCH ×4 (08:34→23:41)
[2017-02-05] MEDS: SUCRALFATE 1 GM TAB PO SCH ×3 (08:34→18:31)
[2017-02-05] MEDS: ASPIRIN 81 MG CHEW TAB CHEW SCH (08:34)
[2017-02-05] MEDS: FAMOTIDINE 20 MG/2 ML VIAL IV PUSH SCH (08:35)
[2017-02-05] MEDS: CALCITONIN SALM 200 UNIT/SPRAY 3.7 ML BTLN NASAL SCH (08:35)
[2017-02-05] MEDS: BUMETANIDE INJ 1 MG/4 ML VIAL IV PUSH SCH (08:35)
[2017-02-05] MEDS: SODIUM CHLORIDE 0.9% FLUSH 10 ML FLUSH IV FLUSH SCH ×2 (08:36→23:41)
--- NOTE | 2017-02-05 08:38 | HHI.PR ---
Subjective Remarks Pt states that she is feeling a little bit better than yesterday. just got off BiPAP. no chest pains at this time, no nausea or vomiting. Somewhat anxious. at bedside, tells me that she has anemia and sees a cocoa room operator for which she gets iron transfusions, pt also did require a few blood transfusion at [facility]. No hx of GI problems per . RN notifies me that PEG not functioning a few minutes later, RN notifies me that pt not tolerating NC, back on BiPAP, HR in the 120's and sats in the 80's. Pt very anxious, moving around in bed. 1mg IV ativan ordered for anxiety Objective Vitals Vital Signs Date Time Temp Pulse Resp B/P (MAP) Pulse Ox O2 Delivery O2 Flow Rate FiO2 02/05/17 06:00 65 02/05/17 04:25 100 50 02/05/17 04:00 98.8 49 20 117/59 (78) 99 02/05/17 04:00 49 02/05/17 02:00 76 02/05/17 01:13 94 50 02/05/17 00:00 98.5 62 31 112/57 (75) 96 02/05/17 00:00 62 02/04/17 22:00 62 02/04/17 21:36 96 50 02/04/17 21:36 95 BiPAP 50 02/04/17 20:00 98.7 63 19 118/67 (84) 100 02/04/17 20:00 63 02/04/17 18:00 68 02/04/17 16:37 100 50 02/04/17 16:00 98.9 60 32 156/74 (101) 100 02/04/17 16:00 60 02/04/17 14:00 104 02/04/17 12:08 81 20 160/79 (106) 99 02/04/17 12:00 80 02/04/17 12:00 98.7 81 20 160/79 (106) 98 02/04/17 10:00 64 02/04/17 09:45 92 Nasal Cannula 3.00 I/O 02/04/17 02/04/17 02/04/17 02/05/17 02/05/17 02/05/17 07:00 15:00 23:00 07:00 15:00 23:00 Intake Total 150 ml 570 ml 568 ml Output Total 600 ml 350 ml Balance 150 ml -30 ml 218 ml Intake Oral 120 ml IV Total 20 ml Tube Feeding 210 ml 398 ml Other 150 ml 240 ml 150 ml Output Urine Total 600 ml 350 ml # Bowel Movements 0 0 Result Diagram: 02/05/1752902/05/17529 Objective Remarks GENERAL: elderly female, back on bipap, very anxious. SKIN: Warm and dry. NECK: trachea midline. CARDIOVASCULAR: tachycardic RESPIRATORY: some exp wheezes noted, decreased breaths sounds at the bases, no crackles. Having a hard time breathing. GASTROINTESTINAL: Abdomen soft, non-tender, nondistended. MUSCULOSKELETAL: No edema. Mental Status: Patient is awake, appears anxious. back on bipap, initially was able to finish her sentences now having difficulties A/P Assessment and Plan [facility] - suspected that pt was Fluid overload. On IV bumex 2mg TID. Pt attempted to be on NC a few times and requiring BiPAP. Pt's condition worsened, Pt tachycardic in the 120's sats dropping in the 80's. Discussed the case w Dr. Montero who also evaluated the patient and agrees w my assessment. Pt will be intubated as she is struggling to breath. at bedside and agrees w plan, he also confirms that she is a full code. consult place to marine diver for transfer of care. Stat EKG, ABG, chest x-ray ordered. - May require additional hemodialysis today - Monitor in ICU - DuoNeb scheduled and when necessary End-stage renal disease - Hemodialysis per nephrology ?chronic anemia per she is supposed to get Iron infusions and has been transfused in the past. Hb 6.9 today, transfuse 1 unit now. monitor H&H. Hypertension - Hydralazine and labetalol when necessary to keep SBP less than 150 Coronary artery disease - status post stent placement - Aspirin - Statins Encephalopathy - Status post cardiac arrest - Seroquel History of V. fib arrest - Amiodarone - Diltiazem - on Coumadin, INR 1.8. May need to held due to severe anemia. will defer to marine diver regarding anticoagulation. Discharge Planning Transfer care to marine diver service. Key Brice MD Feb 05, 2017 08:38
[2017-02-05] MEDS: POLYETHYLENE GLYCOL 17 GM PKG PO SCH (09:00)
[2017-02-05] MEDS ORDERED: LORazepam 2 MG/ML VIAL ONE (09:11)
[2017-02-05] MEDS ORDERED: ROCURONIUM INJ 50 MG/5 ML VIAL ONE (09:22)
[2017-02-05] MEDS ORDERED: MIDAZOLAM HCL 5 MG/ML VIAL (1 ML) ONE (09:22)
[2017-02-05] MEDS ORDERED: POTASSIUM CHLORIDE 20 MEQ CONTROLLED RELEASE TAB PO ONE (09:30)
--- NOTE | 2017-02-05 09:36 | PD.PROCEDR ---
Procedure Note Procedure Indication: Acute COPD exacerbation, Respiratory extremis INTUBATION: The patient was put in optimal position for the procedure. Rapid sequence intubation was initiated by me using 20 milligrams of etomidate IV, Versed 5 mg IV and 50 milligrams of rocuronium IV. DL with Mac 4 blade, Grade 1 view. The patient was intubated with a 7.5 cuffed endotracheal tube. Tube placement was confirmed by visualization of the tube and balloon passing through the cords, capnometry and subsequent chest x-ray. Breath sounds were equal and well aerated bilaterally postintubation. No breath sounds over stomach. Patient tolerated procedure well. Mary Montero MD Feb 05, 2017 09:36
[2017-02-05 09:37] LABS: BLOOD GAS BASE EXCESS 3.1 mmol/L (-2-2); BLOOD GAS CARBOXYHEMOGLOBIN 1.6 % (0-4); BLOOD GAS HCO3 29 mmol/L (22-26); BLOOD GAS METHEMOGLOBIN 1.2 % (0-2); BLOOD GAS O2 HGB SATURATION 91 % (90-100); BLOOD GAS OXYGEN CONTENT 11.2 Vol % (12.0-20.0); BLOOD GAS PCO2 55 mmHg (38-42); BLOOD GAS PO2 75 mmHg (61-120); BLOOD GAS TOTAL HGB 8.7 G/DL (12.0-16.0); TEMP CORR TO 98.6
[2017-02-05 09:38] LABS: CRITICAL VALUE YES; DRAW SITE RT RADIAL; FIO2 60 %; NUMBER OF ARTERIAL PUNCTURES 1; OXYGEN DEVICE BIPAP; STAT YES; ULNAR PULSE PRESENT; VENT SETTINGS IPAP15/EPAP5
[2017-02-05] MEDS ORDERED: LORazepam 2 MG/ML VIAL IV PUSH ONE (09:45)
--- NOTE | 2017-02-05 09:51 | HHI.CCPN ---
Subjective Remarks/Hospital Course 76-year-old female admitted to [place] rehabilitation medicine services for rehabilitation management after prolonged hospitalization at [facility]. She was admitted to [facility] with acute coronary syndrome, status post stent placement in October last year. The patient was admitted with shortness of breath active chest pain and went into V. fib cardiopulmonary arrest. At that time her potassium was 7.8 and patient underwent emergent hemodialysis. Hospital course was complicated with sepsis ESBL, respiratory failure requiring tracheostomy, PEG care for tube feedings and hemodialysis Wednesdays. Patient had a Vas-Cath placed on the left for dialysis and the port placed on the right. Patient was successfully decannulated and transferred to [facility] for further rehabilitation off deconditioning. 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 Last night, shortly after her hemodialysis, patient developed respiratory distress hypoxemia at 80s. She was immediately placed on BiPAP with improvement in oxygenation and respiratory condition and is admitted to ICU under critical care service. SUBJ 02/05/17: I was emergently called to the bedside as the patient was in acute respiratory distress. Apparently in the last 20 minutes patient's respiratory status deteriorated while on BiPAP. On my arrival patient was severely tachypneic breathing at 40-45 breaths per minute on BiPAP 15/5 60% FiO2. Respiratory exam showed severe bilateral expiratory wheezing. Because of impending respiratory arrest I immediately intubated the patient and placed on mechanical ventilation. Post intubation chest x-ray showed severe, extensive bilateral right more than left alveolar and interstitial infiltrates indicating pulmonary edema versus atypical pneumonia. Discussed with nephrology , will restart hemodialysis. 2-D echo ordered as well as cardiac enzymes. Her hemoglobin was 6.9, a unit of blood was ordered but patient has not been transfused yet Objective Vital Signs Date Time Temp Pulse Resp B/P (MAP) Pulse Ox O2 Delivery O2 Flow Rate FiO2 02/05/17 09:30 96 40 02/05/17 08:52 Nasal Cannula 4.00 02/05/17 06:00 65 02/05/17 04:00 98.8 20 117/59 (78) Intake and Output 02/05/17 02/05/17 02/06/17 08:00 16:00 00:00 Intake Total 568 ml Output Total 350 ml Balance 218 ml Result Diagram: 02/05/1730 02/05/1730 Other Results Laboratory Tests Test 02/04/17 14:49 02/05/17 09:16 Blood Gas Puncture Site RT RADIAL RT RADIAL Blood Gas Patient Temperature 98.6 98.6 Blood Gas HCO3 30 mmol/L (22-26) 29 mmol/L (22-26) Blood Gas Base Excess 5.5 mmol/L (-2-2) 3.1 mmol/L (-2-2) Blood Gas Oxygen Saturation 93 % (90-100) 91 % (90-100) Arterial Blood pH 7.40 (7.380-7.420) 7.34 (7.380-7.420) Arterial Blood Partial Pressure CO2 50 mmHg (38-42) 55 mmHg (38-42) Arterial Blood Partial Pressure O2 83 mmHg (61-120) 75 mmHg (61-120) Arterial Blood Oxygen Content 10.5 Vol % (12.0-20.0) 11.2 Vol % (12.0-20.0) Arterial Blood Carboxyhemoglobin 2.0 % (0-4) 1.6 % (0-4) Arterial Blood Methemoglobin 1.1 % (0-2) 1.2 % (0-2) Blood Gas Hemoglobin 8.0 G/DL (12.0-16.0) 8.7 G/DL (12.0-16.0) Oxygen Delivery Device BIPAP 15IPAP/5EPAP BIPAP Blood Gas Inspired Oxygen 50 % 60 % Blood Gas Ventilator Setting IPAP15/EPAP5 Objective Remarks GENERAL: Elderly female who is in severe respiratory distress SKIN: Warm and dry. HEAD: Normocephalic. EYES: No scleral icterus. No injection or drainage. ENT: Poor dentition, airway patent NECK: Supple, trachea midline. No JVD or lymphadenopathy. CARDIOVASCULAR: Tachycardic in mental status due to severe respiratory distress. Heart sounds diminished due to severe wheezing RESPIRATORY: Severely tachypneic breathing 45 breaths per minute, severe bilateral expiratory wheezing GASTROINTESTINAL: Abdomen soft, non-tender, nondistended. MUSCULOSKELETAL: No cyanosis, or edema. NEURO EXAM: Severe distress limits exam. Patient understands need for intubation, and so extremities equally no focal deficits A/P Assessment and Plan Neuro: - Postintubation placed on propofol for sedation and ventilator synchrony - Daily sedation medication only after respiratory status has improved RESP: Acute hypoxemic and hypercarbic respiratory failure Acute COPD exacerbation Probable HCAP Pulmonary edema - Emergently intubated and placed on mechanical ventilation - PRVC/AC 18/550/12 100% - IV Solu-Medrol 125 mg 1 and 60 mg IV every 8 hours - DuoNeb every 4 hours scheduled and when necessary - Sputum culture broad-spectrum antibiotics with Zosyn and azithromycin CVS: Pulmonary edema most likely cardiogenic Mild troponin elevation History of coronary artery disease and PCI History of V Fib arrest - Check serial troponins check 2-D echo - Cardiology consult if needed - Hold aspirin and Coumadin due to anemia requiring transfusion - Emergency hemodialysis for fluid removal - Hold Bumex while on hemodialysis - Hydralazine and labetalol when necessary to keep SBP less than 150 - Continue statin - Continue amiodarone GI/HEME: Anemia requiring transfusion History of GI bleed - Transfuse 2 units PRBC keep hemoglobin more than 8 if evidence of ACS - Protonix 40 mg IV every 12 - GI consulted - Keep NPO : Chronic kidney disease stage IV - Hemodialysis per nephrology Dr. Shipman ID: - Empiric Zosyn and azithromycin - Follow-up on blood and sputum culture Endo: - Replace electrolytes carefully DVT GI prophylaxis - Teds SCDs - Coumadin on hold - IV Protonix Critical Care: The total critical care time was 77 minutes. Time to perform other separately billable procedures was not included in the critical care time. Patient's clinical condition deteriorated, was in impending respiratory arrest. Emergently intubated and placed on mechanical ventilation. Will initiate emergency hemodialysis. IV Solu-Medrol and breathing treatments to treat COPD exacerbation, empiric Zosyn and azithromycin. Patient has anemia requiring transfusion GI consulted. At this time remains critically ill. 2-D echo to evaluate for ischemic cardiomyopathy is pending Mary Montero MD Feb 05, 2017 09:51
[2017-02-05] MEDS ORDERED: INFLUENZA VIRUS VACCINE (QUADRIVALENT) 0.5 ML SYR IM ONE (10:00)
[2017-02-05] MEDS ORDERED: methylPREDNISolone SOD SUCC 125 MG/2 ML VIAL IV PUSH ONE (10:00)
[2017-02-05] MEDS ORDERED: FUROSEMIDE 20 MG/2 ML VIAL IV PUSH ONE (10:00)
[2017-02-05] MEDS ORDERED: SODIUM CHLOR 0.9% 1000 ML INJ 1,000 ML IV PRN (10:04)
[2017-02-05] MEDS ORDERED: SODIUM CHLOR 0.9% 1000 ML INJ 1,000 ML OTHER PRN ×2 (10:04)
--- NOTE | 2017-02-05 10:13 | HHI.NPPN ---
Subjective General Problems: Anemia Interval History She was intubated for respiratory distress and hypoxia. Chest Xray looks worse. She made nearly one liter of urine. (Jovanna Ramires) Review of Systems General General Remarks unable to obtain (Jovanna Ramires) Objective Data Data Vital Signs Date Time Temp Pulse Resp B/P (MAP) Pulse Ox O2 Delivery O2 Flow Rate FiO2 02/05/17 09:30 96 40 02/05/17 08:52 95 Nasal Cannula 4.00 02/05/17 06:00 65 02/05/17 04:25 100 50 02/05/17 04:00 98.8 49 20 117/59 (78) 99 02/05/17 04:00 49 02/05/17 02:00 76 02/05/17 01:13 94 50 02/05/17 00:00 98.5 62 31 112/57 (75) 96 02/05/17 00:00 62 02/04/17 22:00 62 02/04/17 21:36 96 50 02/04/17 21:36 95 BiPAP 50 02/04/17 20:00 98.7 63 19 118/67 (84) 100 02/04/17 20:00 63 02/04/17 18:00 68 02/04/17 16:37 100 50 02/04/17 16:00 98.9 60 32 156/74 (101) 100 02/04/17 16:00 60 02/04/17 14:00 104 02/04/17 12:08 81 20 160/79 (106) 99 02/04/17 12:00 80 02/04/17 12:00 98.7 81 20 160/79 (106) 98 (Jovanna Ramires) -: 02/05/17 0530 02/05/17 0530 Tubes & Lines: Perma-Cath Tubes & Lines Comment PEG, port a cath (Jovanna Ramires) Physical Exam General Appearance: Well Developed, Comfortable Appearance Remarks intubated, unresponsive (Jovanna Ramires) Throat Throat Exam: Oral Mucosa Dunning & Moist (Jovanna Ramires) Neck Neck Exam: Neck Supple (Jovanna Ramires) Pulmonary Resp Exam: Crackles, Rhonchi Resp Remarks course lung sounds, vented (Jovanna Ramires) Cardiology CV Exam: Normal Sinus Rhythm, Tachycardia (Jovanna Ramires) Gastrointestinal/Abdomen GI Exam: Soft, Non-Tender (Jovanna Ramires) Musculoskeletal MS Exam: Joints Intact, Normal Tone (Jovanna Ramires) Integumentary Skin Exam: Clear, Warm, Dry, Intact (Jovanna Ramires) Extremeties Extremities Exam: No Edema, Pedal Pulses Palpable (Jovanna Ramires) Neurologic Neuro Exam: Unresponsive, Sedated (Jovanna Ramires) Assessment/Plan Assessment Summary: Anemia of CKD, Hypertension, End Stage Renal Disease Electrolyte Assessment: Hypokalemia Problem List: (1) Acute renal failure ICD Codes: N17.9 - Acute kidney failure, unspecified Plan: She has been maintained on MWF HD since October, has a hx of CKD 4 Her creatinine is not that high, in addition she is making quite a bit of urine ; she did respond to Bumex. Has history of ischemic cardiomyopathy, may have CHF exacerbation vs Pneumonia with new chest xray findings, s/p intubation We will dialyze her today on a 4K, continue to monitor renal function and urine output She has permcath on left for HD use Repeat labs tomorrow, It remains to be seen if she will require exterminator termite dialysis Possible HD Friday if needed Avoid IVF, nephrotoxic agents, renally dose when appropriate Hold Bumex for now (2) Anemia in chronic renal disease ICD Codes: N18.9 - Chronic kidney disease, unspecified; D63.1 - Anemia in chronic kidney disease Status: Chronic Plan: Hb is lower Continue Epogen with HD Ordered 2 units PRBC (3) Hypertension, essential ICD Codes: I10 - Essential (primary) hypertension Status: Chronic Plan: She is no on antihypertensives Monitor blood pressure (4) Atrial flutter ICD Codes: I48.92 - Unspecified atrial flutter Plan: On dose adjusted coumadin and amiodarone (5) Impaired mobility and activities of daily living ICD Codes: Z74.09 - Other reduced mobility Plan: Needs aggressive PT/OT (Jovanna Ramires) Problem List: (1) Acute renal failure ICD Codes: N17.9 - Acute kidney failure, unspecified Plan: She has been maintained on MWF HD since October, has a hx of CKD 4 Her creatinine is not that high, in addition she is making quite a bit of urine ; she did respond to Bumex. Has history of ischemic cardiomyopathy, may have CHF exacerbation vs Pneumonia with new chest xray findings, s/p intubation We will dialyze her today on a 4K, continue to monitor renal function and urine output She has permcath on left for HD use Repeat labs tomorrow, It remains to be seen if she will require exterminator termite dialysis Possible HD Friday if needed Avoid IVF, nephrotoxic agents, renally dose when appropriate Hold Bumex for now (2) Anemia in chronic renal disease ICD Codes: N18.9 - Chronic kidney disease, unspecified; D63.1 - Anemia in chronic kidney disease Status: Chronic Plan: Hb is lower Continue Epogen with HD Ordered 2 units PRBC (3) Hypertension, essential ICD Codes: I10 - Essential (primary) hypertension Status: Chronic Plan: She is no on antihypertensives Monitor blood pressure (4) Atrial flutter ICD Codes: I48.92 - Unspecified atrial flutter Plan: On dose adjusted coumadin and amiodarone Plan patient was seen and examined. She was intubated this morning. CXR with bilateral patchy infiltrates. Non oliguric, but will dialyze her today to remove fluid and assess her response. (Zoran Shipman MD) Jovanna Ramires Feb 05, 2017 10:13 Zoran Shipman MD Feb 05, 2017 20:30
--- NOTE | 2017-02-05 10:14 | RADRPT ---
EXAM DATE/TIME: 02/05/2017 09:34 [place] COMPARISON: No previous studies available for comparison. INDICATIONS : Post intubation MEDICAL HISTORY : none known SURGICAL HISTORY : none known ENCOUNTER: Initial ACUITY: 1 day PAIN SCORE: Non-responsive. LOCATION: Bilateral chest FINDINGS: The is an ETT with tip approximately 2 cm above the natalie. Right IJ central line with tip in the pro ximal SVC. Left IJ dialysis catheter with tip in the right atrium. Diffuse patchy bilateral interstit ial and alveolar opacities more prominently on the right. Cardiomediastinal contours are within mandy l limits. Pulmonary vascularity is indistinct. Bony thorax is intact. CONCLUSION: 1. Tubes and lines, as above. No pneumothorax. 2. Diffuse bilateral interstitial and patchy alveolar opacities consistent with primary edema pattern versus infection/atypical infection. Madhu Draper MD on February 05, 2017 at 10:08 Board Certified Radiologist. This report was verified electronically.
[2017-02-05] MEDS ORDERED: ONDANSETRON HCL 4 MG/2 ML VIAL IV PUSH PRN (10:15)
[2017-02-05] MEDS ORDERED: HEPARIN SODIUM - IV 10,000 UNITS/10 ML VIAL IV FLUSH PRN (10:15)
[2017-02-05] MEDS ORDERED: NITROGLYCERIN 0.4 MG SL 25 TABS/BTL SL PRN (10:15)
[2017-02-05] MEDS ORDERED: cloNIDine HCL 0.1 MG TAB PO PRN (10:15)
[2017-02-05] MEDS ORDERED: MANNITOL 12.5 GM/50 ML VIAL IV PRN (10:15)
[2017-02-05] MEDS ORDERED: SODIUM CHLORIDE 0.9% FLUSH 10 ML FLUSH IV FLUSH PRN (10:15)
[2017-02-05] MEDS ORDERED: GELATIN 12 MM/7 MM FOAM TOP PRN (10:15)
[2017-02-05] MEDS ORDERED: ALBUMIN 25% INJ 100 ML IV PRN (10:15)
[2017-02-05 11:07] LABS: BLOOD GAS BASE EXCESS 3.8 mmol/L (-2-2); BLOOD GAS CARBOXYHEMOGLOBIN 2.2 % (0-4); BLOOD GAS HCO3 29 mmol/L (22-26); BLOOD GAS METHEMOGLOBIN 0.7 % (0-2); BLOOD GAS O2 HGB SATURATION 95 % (90-100); BLOOD GAS OXYGEN CONTENT 9.1 Vol % (12.0-20.0); BLOOD GAS PCO2 48 mmHg (38-42); BLOOD GAS PO2 84 mmHG (61-120); BLOOD GAS TOTAL HGB 6.7 G/DL (12.0-16.0); OXYGEN DEVICE VENTILATOR; TEMP CORR TO 98.6
[2017-02-05 11:09] LABS: DRAW SITE RT RADIAL; NUMBER OF ARTERIAL PUNCTURES 1; STAT NO; ULNAR PULSE PRESENT; VENT SETTINGS PRVC/AC
--- NOTE | 2017-02-05 11:15 | PD.CONS ---
HPI History of Present Illness This is a 76 year old female patient with a history of hypertension, hyperlipidemia, coronary artery disease, and chronic kidney disease who presented to [facility] 11/14/16 for evaluation of chest pain and difficulty breathing. On arrival, she was noted to have a third degree heart block and went into cardiac arrest. She required intubation and mechanical ventilation and received ACLS protocol for V. fib. Her hospitalization was complicated by the development of sepsis, pneumonia, renal failure, and anoxic encephalopathy. She required a tracheostomy and PEG tube placement (11/26/16). Cultures at [facility] were positive for tracheostomy cx (+) Pantoea agglomerans and urine culture positive for ESBL. She was evaluated by Infectious disease and completed a course of antibiotics prior to her transfer to this facility. She also required hemodialysis and was transferred to [facility] on . She was weaned off the ventilator and decannulated prior to her arrival to [facility] for intensive rehabilitation on 01/23. She received hemodialysis yesterday and shortly after, developed respiratory distress and was Halicated to the intensive care unit, where she was placed on Bipap. Her respiratory status declined and she required intubation with mechanical ventilation overnight. GI was consulted originally for clogged peg tube, but the nurse was able to flush it to unclog it and it is flushing without difficulty. However, she was also noted to have a drop in Hgb and therefore GI was consulted for possible GI bleeding, as she had a drop in Hgb from 7.6 to 6.9 overnight. Looking back, her Hgb has been trending down for the past 5 days- 11.3-->9.3--> 8.0--->7.6--->6.9. She is not having any obvious active bleeding and I aspirated yellow gastric secretions from her PEG tube- no obvious blood noted. She has not had a bowel movement. She is currently on Couamdin, Cardizem, and Amiodarone, ? hx Vfib. Her INR is 1.7. Coumadin is on hold. (Coby Resendez) PFSH Past Medical History HTN CAD ESRD Recent hospitalization for chest pain, cardiopulmonary arrest, vfib, sepsis, respiratory failure, acute on chronic kidney disease, dysphagia Past Surgical History Tracheostomy placement PEG tube placement Port placement Cholecystectomy (Coby Resendez) Coded Allergies: shellfish derived (Unverified Allergy, Unknown, 11/12/16) Medications Allergies Coded Allergies Type Severity Reaction Last Updated Verified shellfish derived Allergy Unknown 11/12/16 No Active Scripts Medications Dose Route/Sig Max Daily Dose Days Date Category Dose Instructions Xanax (Alprazolam) 0.25 Mg Tab 0.25 Mg PO Q8H PRN 02/03/17 Rx Coumadin (Warfarin) 5 Mg Tab 5 Mg PO DAILY@1600 02/03/17 Rx Famotidine 20 Mg Tab 20 Mg PO HS 02/03/17 Rx [Metoclopramide Liq] 10 MG/10 ML Syrp 5 Mg PO QID 02/03/17 Rx [Aquaphor Oint] 50 APPLIC/50 GM Oint 1 Applic TOPICAL Q12HR 02/03/17 Rx Commode With Arms (Device) 1 Mis Mis Ea .ROUTE DIRECTED 01/31/17 Rx Wheelchair (Device) 1 Mis Mis Ea .ROUTE DIRECTED 01/31/17 Rx Hospital Bed - Electric 1 Ea Ea Ea .ROUTE DIRECTED 01/31/17 Rx Sucralfate 1 Gram Tab 1 Gm PO TID 01/23/17 Reported on empty stomach Quetiapine (Quetiapine Fumarate) 100 Mg Tab 100 Mg PO BID 01/23/17 Reported Miralax Powder (Polyethylene Glycol 3350 Powder) 17 Gm Powd 17 Gm PO DAILY 01/23/17 Reported Mix and dissolve one measuring cap-ful (17 grams) in water or juice. Fentanyl Patch 72 HR (Fentanyl) 50 Mcg/Hr Patch 50 Mcg T-DERMAL Q72H 01/23/17 Reported Remove old patch when new one placed. Docusate Sodium 100 Mg Cap 100 Mg PO BID 01/23/17 Reported Diltiazem (Diltiazem HCl) 60 Mg Tab 60 Mg PO QID 01/23/17 Reported Calcitonin (Barre) Nasal Pullman (Calcitonin Barre) 200 Units/Act Soln 1 Pullman NASAL DAILY 01/23/17 Reported Alternate nostrils daily. Bisacodyl Supp (Bisacodyl) 10 Mg Supp 10 Mg RECTAL DAILY PRN 01/23/17 Reported Aspirin 81 Mg Chew 81 Mg CHEW DAILY 01/23/17 Reported Amiodarone (Amiodarone HCl) 200 Mg Tab 200 Mg PO DAILY 01/23/17 Reported Tylenol (Acetaminophen) 325 Mg Tab 325 Mg PO Q6H PRN 01/23/17 Reported Family History Unable to obtain Social History Smoker quit 15 years ago No history of alcohol use (Coby Resendez) Review of Systems ROS Unable to obtain (Coby Resendez) GI Exam Vitals I&O Vital Signs Date Time Temp Pulse Resp B/P (MAP) Pulse Ox O2 Delivery O2 Flow Rate FiO2 02/05/17 09:30 96 40 02/05/17 08:52 95 Nasal Cannula 4.00 02/05/17 06:00 65 02/05/17 04:25 100 50 02/05/17 04:00 98.8 49 20 117/59 (78) 99 02/05/17 04:00 49 02/05/17 02:00 76 02/05/17 01:13 94 50 02/05/17 00:00 98.5 62 31 112/57 (75) 96 02/05/17 00:00 62 02/04/17 22:00 62 02/04/17 21:36 96 50 02/04/17 21:36 95 BiPAP 50 02/04/17 20:00 98.7 63 19 118/67 (84) 100 02/04/17 20:00 63 02/04/17 18:00 68 02/04/17 16:37 100 50 02/04/17 16:00 98.9 60 32 156/74 (101) 100 02/04/17 16:00 60 02/04/17 14:00 104 02/04/17 12:08 81 20 160/79 (106) 99 02/04/17 12:00 80 02/04/17 12:00 98.7 81 20 160/79 (106) 98 I/O 02/04/17 02/04/17 02/04/17 02/05/17 02/05/17 02/05/17 07:00 15:00 23:00 07:00 15:00 23:00 Intake Total 150 ml 570 ml 568 ml Output Total 600 ml 350 ml Balance 150 ml -30 ml 218 ml Intake Oral 120 ml IV Total 20 ml Tube Feeding 210 ml 398 ml Other 150 ml 240 ml 150 ml Output Urine Total 600 ml 350 ml # Bowel Movements 0 0 Laboratory Test 02/04/17 14:49 02/05/17 05:30 02/05/17 09:16 Blood Gas Puncture Site RT RADIAL RT RADIAL Blood Gas Patient Temperature 98.6 98.6 Blood Gas HCO3 30 mmol/L 29 mmol/L Blood Gas Base Excess 5.5 mmol/L 3.1 mmol/L Blood Gas Oxygen Saturation 93 % 91 % Arterial Blood pH 7.40 7.34 Arterial Blood Partial Pressure CO2 50 mmHg 55 mmHg Arterial Blood Partial Pressure O2 83 mmHg 75 mmHg Arterial Blood Oxygen Content 10.5 Vol % 11.2 Vol % Arterial Blood Carboxyhemoglobin 2.0 % 1.6 % Arterial Blood Methemoglobin 1.1 % 1.2 % Blood Gas Hemoglobin 8.0 G/DL 8.7 G/DL Oxygen Delivery Device BIPAP 15IPAP/5EPAP BIPAP Blood Gas Inspired Oxygen 50 % 60 % White Blood Count 4.5 TH/MM3 Red Blood Count 2.31 MIL/MM3 Hemoglobin 6.9 GM/DL Hematocrit 21.6 % Mean Corpuscular Volume 93.5 FL Mean Corpuscular Hemoglobin 30.1 PG Mean Corpuscular Hemoglobin Concent 32.2 % Red Cell Distribution Width 18.2 % Platelet Count 134 TH/MM3 Mean Platelet Volume 7.6 FL Neutrophils (%) (Auto) 76.5 % Lymphocytes (%) (Auto) 14.0 % Monocytes (%) (Auto) 5.2 % Eosinophils (%) (Auto) 3.7 % Basophils (%) (Auto) 0.6 % Neutrophils # (Auto) 3.5 TH/MM3 Lymphocytes # (Auto) 0.6 TH/MM3 Monocytes # (Auto) 0.2 TH/MM3 Eosinophils # (Auto) 0.2 TH/MM3 Basophils # (Auto) 0.0 TH/MM3 CBC Comment DIFF FINAL Differential Comment Prothrombin Time 19.1 SEC Prothromb Time International Ratio 1.7 RATIO Blood Urea Nitrogen 41 MG/DL Creatinine 2.23 MG/DL Random Glucose 125 MG/DL Total Protein 5.9 GM/DL Albumin 3.0 GM/DL Calcium Level 8.8 MG/DL Phosphorus Level 2.7 MG/DL Magnesium Level 2.1 MG/DL Alkaline Phosphatase 102 U/L Aspartate Amino Transf (AST/SGOT) 19 U/L Alanine Aminotransferase (ALT/SGPT) 24 U/L Total Bilirubin 0.3 MG/DL Sodium Level 134 MEQ/L Potassium Level 3.4 MEQ/L Chloride Level 96 MEQ/L Carbon Dioxide Level 30.6 MEQ/L Anion Gap 7 MEQ/L Estimat Glomerular Filtration Rate 21 ML/MIN Lactic Acid Level 1.1 mmol/L Blood Gas Ventilator Setting [id number] Physical Examination HEENT: Normocephalic; atraumatic; no jaundice. CHEST: Resp even/unlabored, OETT to vent. CARDIAC: ST ABDOMEN: Soft, nondistended, no hepatosplenomegaly; bowel sounds are present in all four quadrants. PEG site without redness or swelling EXTREMITIES: edema. LATHE WINDER: Sedated on vent. (Coby Resendez) Assessment and Plan Plan ASSESSMENT: - Anemia with drop in Hgb. GI was consulted for possible GI bleeding, as she had a drop in Hgb from 7.6 to 6.9 overnight. Looking back, her Hgb has been trending down for the past 5 days- 11.3-->9.3-->8.0---> 7.6--->6.9. She is not having any obvious active bleeding and I aspirated yellow gastric secretions from her PEG tube- no obvious blood noted. She has not had a bowel movement. On Couamdin, Cardizem, and Amiodarone, ? hx Vfib. Her INR is 1.7. Coumadin is on hold. Last egd/ colonoscopy was 4 years ago- clean per patient's other than hemorrhoids. Spoke to Wayne Buckley , regarding procedure, risks, benefits and he would like to proceed. - Dysphagia. S/P PEG tube placement at [facility] (11/26). - Respiratory failure. Recent prolonged hospitalization 11/14 at [facility], s/p tracheostomy/peg. Was at [facility] 11/26-01/23. Tracheostomy was decannulated prior to arrival at [facility]. Halicated from [facility] on 02/04 for respiratory distress, intubated early 02/05. Vent per [facility]. - Anticoagulation. On coumadin, amiodarone, cardizem. No hx of afib. ? vfib while at [facility]. She came to [facility] on this. - ESRD with electrolyte abnormalities, HD- had CKD, started on HD during her hospitalization at [facility]. Mondays, Wednesdays, Friday. - CAD, HTN per attending. PLAN: - Plan for egd/colonoscopy in am - Obtain consents - Golytely prep - NPO after MN - Change pepcid to protonix - Hold coumadin - Monitor HH - Transfuse as necessary - Supportive care - Further recommendations to follow based on results of above - PT seen and examined by Dr. Panda and myself and this note is written on his behalf (Coby Resendez) Physician Comments Seen and examined, plan as above. Will re-evaluate her condition in AM and if stable will obtain consent for EGD/ Colonoscopy. Thank you for the consult. (Josemanuel Panda MD) Coby Resendez Feb 05, 2017 11:15 Josemanuel Panda MD Feb 05, 2017 14:03
[2017-02-05] MEDS ORDERED: PROPOFOL 500 MG/50 ML INJ 50 ML ONE (11:21)
[2017-02-05] MEDS: PANTOPRAZOLE SODIUM 40 MG VIAL IV PUSH SCH ×2 (11:30→23:41)
[2017-02-05] MEDS: AZITHROMYCIN INJ 500 MG in SODIUM CHLOR 0.9% 250 ML INJ 250 ML IV SCH (12:00)
[2017-02-05] MEDS: MORPHINE SULFATE 2 MG/ML INJ IV PRN (12:01)
--- NOTE | 2017-02-05 12:49 | EKG ---
Date Performed: 02/05/2017 Time Performed: 09:48:35 PTAGE: 76 years EKG: SINUS TACHYCARDIA WITH FIRST DEGREE AV BLOCK ST DEPRESSION, CONSIDER SUBENDOCARDIAL INJURY ABNORMAL ECG INTERPRETATION BASED ON A DEFAULT AGE OF 42 YEARS PREVIOUS TRACING : 05/24/2009 07.02 DOCTOR: Misha Miller Interpretating Date/Time 02/05/2017 12:46:32
[2017-02-05] MEDS: HEPARIN SODIUM - IV 10,000 UNITS/10 ML VIAL PRN (12:58)
[2017-02-05] MEDS: GENTAMICIN SULFATE (DIALYSIS USE ONLY) 20 MG/2 ML VIAL OTHER PRN (12:58)
[2017-02-05] MEDS: EPOETIN ALFA 10,000 UNITS/ML VIAL IV PUSH PRN (12:59)
[2017-02-05] MEDS ORDERED: PROPOFOL 1000 MG/100 ML IV PRN (13:00)
[2017-02-05] MEDS: PROPOFOL 1000 MG/100 ML INJ 100 ML IV PRN ×2 (13:51→23:35)
[2017-02-05] MEDS: PIPERACIL-TAZO 2.25 GM PREMIX 50 ML IV SCH ×2 (14:45→23:41)
[2017-02-05] MEDS ORDERED: MIDAZOLAM HCL 2 MG/2 ML VIAL IV PUSH ONE (15:30)
[2017-02-05] MEDS ORDERED: PEG (High)/E-LYTE SOLN 4000 ML BTL PEG ONE (16:00)
[2017-02-05] MEDS: MIDAZOLAM 100 MG/100 ML INJ 100 ML IV PRN (18:31)
[2017-02-05] MEDS: methylPREDNISolone SOD SUCC 125 MG/2 ML VIAL IV PUSH SCH (18:32)
[2017-02-05] MEDS: CHLORHEXIDINE 0.12% (ORAL KIT) 15 ML CUP MT SCH (20:00)
[2017-02-05 21:20] LABS: HEMATOCRIT 33.8 % (35.0-46.0); REVIEW FLAG FINAL
[2017-02-06] VITALS (18 sets, daily range): BP systolic 143–172; BP diastolic 65–96; PULSE 58–74; RESP 18; TEMP 98.3–98.8; O2SAT 95–100
[2017-02-06] MEDS: RESP: ALBUTEROL 2.5 MG/IPRATROPIUM 0.5 MG NEB (SCH) INH ×6 (03:26→22:06)
[2017-02-06] MEDS: methylPREDNISolone SOD SUCC 125 MG/2 ML VIAL IV PUSH SCH ×3 (03:35→17:25)
[2017-02-06] MEDS: PIPERACIL-TAZO 2.25 GM PREMIX 50 ML IV SCH ×3 (03:36→20:43)
[2017-02-06] MEDS: MIDAZOLAM 100 MG/100 ML INJ 100 ML IV PRN ×2 (03:36→15:07)
[2017-02-06] MEDS: CHLORHEXIDINE GLUCONATE 2 % 1 PACK (2 CLOTHS) TOP SCH (04:00)
[2017-02-06 05:59] LABS: AUTOMATED NEUTROPHIL # 1.9 TH/MM3 (1.8-7.7); BASOPHIL % 0.2 % (0.0-2.0); HEMATOCRIT 33.7 % (35.0-46.0); HEMO FLAGS DIFF FINAL; LYMPH % 8.7 % (9.0-44.0); LYMPHOCYTE # 0.2 TH/MM3 (1.0-4.8); MEAN CORPUSCULAR HEMOGLOBIN 29.3 PG (27.0-34.0); MEAN CORPUSCULAR HGB CONC 32.6 % (32.0-36.0); MONO % 3.1 % (0.0-8.0); PLATELET COUNT 130 TH/MM3 (150-450); RED BLOOD COUNT 3.74 MIL/MM3 (4.00-5.30); RED CELL DISTRIBUTION WIDTH 17.8 % (11.6-17.2); WHITE BLOOD COUNT 2.1 TH/MM3 (4.0-11.0)
[2017-02-06 06:12] LABS: INTERNATIONAL NORMALIZED RATIO 1.9 RATIO; PROTHROMBIN TIME - PATIENT 21.1 SEC (9.8-11.6)
[2017-02-06 06:31] LABS: BICARBONATE 28.2 MEQ/L (21.0-32.0); POTASSIUM 3.4 MEQ/L (3.5-5.1)
[2017-02-06] MEDS: CHLORHEXIDINE 0.12% (ORAL KIT) 15 ML CUP MT SCH ×2 (07:53→20:43)
[2017-02-06] MEDS: AMIODARONE 200 MG TAB PO SCH (07:58)
[2017-02-06] MEDS: DILTIAZEM HCL 60 MG TAB PO SCH ×4 (07:59→20:43)
[2017-02-06] MEDS: SUCRALFATE 1 GM TAB PO SCH ×3 (07:59→17:24)
[2017-02-06] MEDS: CALCITONIN SALM 200 UNIT/SPRAY 3.7 ML BTLN NASAL SCH (08:00)
[2017-02-06] MEDS: PANTOPRAZOLE SODIUM 40 MG VIAL IV PUSH SCH ×2 (08:01→20:43)
[2017-02-06] MEDS: POLYETHYLENE GLYCOL 17 GM PKG PO SCH (08:01)
[2017-02-06] MEDS: SODIUM CHLORIDE 0.9% FLUSH 10 ML FLUSH IV FLUSH SCH ×2 (08:01→20:44)
[2017-02-06] MEDS: DOCUSATE SODIUM 50 MG/SENNA 8.6 MG TAB PO SCH ×2 (08:02→20:43)
--- NOTE | 2017-02-06 09:24 | RADRPT ---
EXAM DATE/TIME: 02/06/2017 08:36 [place] COMPARISON: CHEST SINGLE AP, February 05, 2017, 9:34. INDICATIONS : Evaluate for Respiratory Disease. MEDICAL HISTORY : None. SURGICAL HISTORY : None. ENCOUNTER: Subsequent ACUITY: 2 days PAIN SCORE: Non-responsive. LOCATION: Bilateral chest FINDINGS: Endotracheal tube tip is just above the natalie. Port and dialysis catheter are stable. There has been some improvement in aeration with decrease in confluence of bilateral alveolar opacities. The left d iaphragm is obscured by atelectasis on today's exam. Cardiac contours are grossly stable. CONCLUSION: Slight overall improvement in aeration. Slight worsening in left base aeration. Endotracheal tube tip is a bit low Winston Pierce MD on February 06, 2017 at 9:21 Board Certified Radiologist. This report was verified electronically.
[2017-02-06] MEDS: QUEtiapine FUMARATE 100 MG TAB PO SCH ×2 (09:27→20:43)
--- NOTE | 2017-02-06 11:06 | HHI.NPPN ---
Subjective General Problems: Anemia Renal Failure: Chronic, Stage IV, Stage V Interval History She remains intubated, Fi02 now 40%, PEEP 12. She received 2 units PRBC yesterday. (Jovanna Ramires) Review of Systems General General Remarks unable to obtain (Jovanna Ramires) Objective Data Data Vital Signs Date Time Temp Pulse Resp B/P (MAP) Pulse Ox O2 Delivery O2 Flow Rate FiO2 02/06/17 08:07 100 40 02/06/17 06:00 69 02/06/17 04:07 100 40 02/06/17 04:00 40 02/06/17 04:00 70 02/06/17 04:00 98.6 70 18 172/77 (108) 100 02/06/17 02:00 58 02/06/17 01:18 100 50 02/06/17 00:00 70 02/06/17 00:00 98.8 70 18 169/96 (120) 100 02/06/17 00:00 40 02/05/17 22:12 100 50 02/05/17 22:00 67 02/05/17 20:00 50 02/05/17 20:00 52 02/05/17 20:00 98.4 52 18 138/62 (87) 100 02/05/17 19:11 100 50 02/05/17 18:00 63 02/05/17 18:00 50 02/05/17 16:00 98.6 91 36 157/75 (102) 100 02/05/17 16:00 60 02/05/17 16:00 92 02/05/17 15:01 98.1 71 18 127/60 100 02/05/17 14:40 97.8 94 18 112/68 94 02/05/17 14:00 62 02/05/17 13:47 100 60 02/05/17 13:15 97.7 63 18 146/67 100 02/05/17 13:01 98.0 69 18 101/54 100 02/05/17 12:00 60 02/05/17 12:00 98.0 65 18 78/43 (55) 100 02/05/17 12:00 63 (Jovanna Ramires) -: 02/06/17 0520 02/06/17 0520 Imaging Last 72 hours Impressions Chest X-Ray 02/06/17 0000 Signed Impressions: Service Date/Time: January 08:36 - CONCLUSION: Slight overall improvement in aeration. Slight worsening in left base aeration. Endotracheal tube tip is a bit low Winston Pierce MD Chest X-Ray 02/05/17 0000 Signed Impressions: Service Date/Time: Sunday, February 05, 2017 09:34 - CONCLUSION: 1. Tubes and lines, as above. No pneumothorax. 2. Diffuse bilateral interstitial and patchy alveolar opacities consistent with primary edema pattern versus infection/atypical infection. Madhu Draper MD Tubes & Lines: Perma-Cath Tubes & Lines Comment PEG, port a cath Drip Comment fentanyl, versed (Jovanna Ramires) Physical Exam General Appearance: Well Developed, Comfortable Appearance Remarks intubated, unresponsive (Jovanna Ramires [employer]) Throat Throat Exam: Oral Mucosa [place] & Moist (Jovanna Ramires [employer]) Neck Neck Exam: Neck Supple (Jovanna Ramires [employer]) Pulmonary Resp Exam: Crackles, Rhonchi Resp Remarks course lung sounds, vented (Jovanna Ramires BJosé Antonio SAINZP) Cardiology CV Exam: Normal Sinus Rhythm, Tachycardia (Jovanna RamiresP) Gastrointestinal/Abdomen GI Exam: Soft, Non-Tender (Jovanna Ramires [employer]) Musculoskeletal MS Exam: Joints Intact, Normal Tone (Jovanna RamiresP) Integumentary Skin Exam: Clear, Warm, Dry, Intact (Jovanna Ramires [employer]) Extremeties Extremities Exam: No Edema, Pedal Pulses Palpable (Jovanna Ramires BJosé Antonio [employer]) Neurologic Neuro Exam: Unresponsive, Sedated (Jovanna Ramires) Assessment/Plan Assessment Summary: Anemia of CKD, Hypertension, End Stage Renal Disease Electrolyte Assessment: Hypokalemia Problem List: (1) Acute renal failure ICD Codes: N17.9 - Acute kidney failure, unspecified Plan: She has been maintained on MWF HD since October s/p cardiac arrest, she had a hx of CKD 4 Her creatinine is not that high, in addition she is making quite a bit of urine Dialyzed Friday (2L UF), we will dialyze first thing Friday in anticipation of extubation Resume Bumex BID, 2 mg IV Has history of ischemic cardiomyopathy, may have flash pulmonary edema vs Pneumonia Monitor urine output She has permcath on left for HD use Repeat labs daily. It remains to be seen if she will require penitentiary dialysis Avoid IVF, nephrotoxic agents, renally dose when appropriate (2) Anemia in chronic renal disease ICD Codes: N18.9 - Chronic kidney disease, unspecified; D63.1 - Anemia in chronic kidney disease Status: Chronic Plan: Hb improved Continue Epogen with HD Ordered 2 units PRBC Due for colonoscopy today (3) Hypertension, essential ICD Codes: I10 - Essential (primary) hypertension Status: Chronic Plan: She is not on antihypertensives Monitor blood pressure (4) Atrial flutter ICD Codes: I48.92 - Unspecified atrial flutter Plan: On dose adjusted coumadin and amiodarone (Jovanna Ramires) Problem List: (1) Acute renal failure ICD Codes: N17.9 - Acute kidney failure, unspecified Plan: She has been maintained on MWF HD since October s/p cardiac arrest, she had a hx of CKD 4 Her creatinine is not that high, in addition she is making quite a bit of urine Dialyzed Friday (2L UF), we will dialyze first thing Friday in anticipation of extubation Resume Bumex BID, 2 mg IV Has history of ischemic cardiomyopathy, may have flash pulmonary edema vs Pneumonia Monitor urine output She has permcath on left for HD use Repeat labs daily. It remains to be seen if she will require penitentiary dialysis Avoid IVF, nephrotoxic agents, renally dose when appropriate (2) Anemia in chronic renal disease ICD Codes: N18.9 - Chronic kidney disease, unspecified; D63.1 - Anemia in chronic kidney disease Status: Chronic Plan: Hb improved Continue Epogen with HD Ordered 2 units PRBC Due for colonoscopy today (3) Hypertension, essential ICD Codes: I10 - Essential (primary) hypertension Status: Chronic Plan: She is not on antihypertensives Monitor blood pressure (4) Atrial flutter ICD Codes: I48.92 - Unspecified atrial flutter Plan: On dose adjusted coumadin and amiodarone Plan patient was seen and examined. Agree with above assessment and plan. Appeared to have develop flash pulmonary edema, etiology to be determined. Dialysis again tomorrow. Restart diuretics. (Zoran Shipman MD) Jovanna Ramires Feb 06, 2017 11:06 Zoran Shipman MD Feb 06, 2017 18:10
--- NOTE | 2017-02-06 11:40 | HHI.CCPN ---
Subjective Remarks/Hospital Course 76-year-old female admitted to [facility] rehabilitation medicine services for rehabilitation management after prolonged hospitalization at [facility]. She was admitted to [facility] with acute coronary syndrome, status post stent placement in October last year. The patient was admitted with shortness of breath active chest pain and went into V. fib cardiopulmonary arrest. At that time her potassium was 7.8 and patient underwent emergent hemodialysis. Hospital course was complicated with sepsis ESBL, respiratory failure requiring tracheostomy, PEG care for tube feedings and hemodialysis Wednesdays. Patient had a Vas-Cath placed on the left for dialysis and the port placed on the right. Patient was successfully decannulated and transferred to [facility] for further rehabilitation off deconditioning. 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 Last night, shortly after her hemodialysis, patient developed respiratory distress hypoxemia at 80s. She was immediately placed on BiPAP with improvement in oxygenation and respiratory condition and is admitted to ICU under critical care service. SUBJ 02/05/17: I was emergently called to the bedside as the patient was in acute respiratory distress. Apparently in the last 20 minutes patient's respiratory status deteriorated while on BiPAP. On my arrival patient was severely tachypneic breathing at 40-45 breaths per minute on BiPAP 15/5 60% FiO2. Respiratory exam showed severe bilateral expiratory wheezing. Because of impending respiratory arrest I immediately intubated the patient and placed on mechanical ventilation. Post intubation chest x-ray showed severe, extensive bilateral right more than left alveolar and interstitial infiltrates indicating pulmonary edema versus atypical pneumonia. Discussed with nephrology , will restart hemodialysis. 2-D echo ordered as well as cardiac enzymes. Her hemoglobin was 6.9, a unit of blood was ordered but patient has not been transfused yet 02/06/17: Emergently intubated yesterday for acute hypoxemic respiratory failure. Chest x-ray shows pulmonary edema. Status post emergency dialysis with 2 L of fluid removed with interval improvement in chest x-ray today. Received 2 units PRBC yesterday with hemoglobin of 11 today. Plan for endoscopy today. PEEP 12, wean slowly. Cardiology consulted for pulmonary edema with history of ischemic heart disease and PCI with stents. (Apparently had cardia arrest/MA in October 2015, but no cath was done due to renal failure) Objective Vital Signs Date Time Temp Pulse Resp B/P (MAP) Pulse Ox O2 Delivery O2 Flow Rate FiO2 02/06/17 11:16 100 40 02/06/17 10:00 62 02/06/17 08:00 98.3 18 151/82 (105) 02/05/17 08:52 Nasal Cannula 4.00 Intake and Output 02/06/17 02/06/17 02/07/17 08:00 16:00 00:00 Intake Total 500 ml Output Total 2500 ml Balance -2000 ml Result Diagram: 02/06/1751902/06/17519 Objective Remarks GENERAL: Elderly female who is intubated heavily sedated SKIN: Warm and dry. HEAD: Normocephalic. EYES: No scleral icterus. No injection or drainage. ENT: Poor dentition, orotracheally intubated NECK: Supple, trachea midline. No JVD or lymphadenopathy. CARDIOVASCULAR: S1 S1-S2 normal no murmurs. RESPIRATORY: Intubated, air entry equal bilaterally, few basilar crackles and expiratory wheezes GASTROINTESTINAL: Abdomen soft, non-tender, nondistended. MUSCULOSKELETAL: No cyanosis, or edema. NEURO EXAM: Intubated heavily sedated most all extremities to pain A/P Assessment and Plan Neuro: - Propofol and Versed for sedation and ventilator synchrony - Daily sedation medication only after respiratory status has improved, Endoscopy completed RESP: Acute hypoxemic and hypercarbic respiratory failure Flash pulmonary edema COPD exacerbation Probable HCAP - Emergently intubated and placed on mechanical ventilation - PRVC/AC 18/550/12 Fio2 down to 40%, Wean PEEP - IV Solu-Medrol 60 mg IV every 8 hours - DuoNeb every 4 hours scheduled and when necessary - Sputum culture broad-spectrum antibiotics with Zosyn and azithromycin CVS: Pulmonary edema most likely cardiogenic Mild troponin elevation History of coronary artery disease and PCI Ischemic cardiomyopathy History of V Fib arrest - 2D Echo shows EF approximately 40-45% on my review. - Cardiology consulted for flash pulmonary edema probably ischemic - Hold aspirin and Coumadin due to anemia requiring transfusion, resume after EGD if cleared by GI - s/p Emergency hemodialysis 02/05 with 2 fluid removal - Bumex 2 mg IV q12 per nephrology - Hydralazine and labetalol when necessary to keep SBP less than 150 - Continue statin, Continue amiodarone - Add Coreg 3.25 mg twice a day GI/HEME: Anemia requiring transfusion History of GI bleed - s/p 2 units PRBC keep hemoglobin more than 8 if evidence of ACS - Protonix 40 mg IV every 12 - GI consulted-EGD today - Keep NPO : Chronic kidney disease stage IV - Hemodialysis per nephrology Dr. Shipman - IV Bumex 2 mg q12 ID: - Empiric Zosyn and azithromycin - Follow-up on blood and sputum culture Endo: - Replace electrolytes carefully DVT GI prophylaxis - Teds SCDs - Coumadin on hold - IV Protonix Critical Care: The total critical care time was 35 minutes. Time to perform other separately billable procedures was not included in the critical care time. Patient remains critically ill though stable. mechanical ventilation required to maintain oxygenation. Continue diuresis and hemodialysis to remove fluid. Endoscopy today. Cardiology consulted for ischemic cardiomyopathy flash pulmonary edema. At the bedside updated Mary Montero MD Feb 06, 2017 11:40
[2017-02-06] MEDS: AZITHROMYCIN INJ 500 MG in SODIUM CHLOR 0.9% 250 ML INJ 250 ML IV SCH (11:56)
[2017-02-06] MEDS: PROPOFOL 1000 MG/100 ML INJ 100 ML IV PRN (11:59)
[2017-02-06] MEDS ORDERED: PROPOFOL 200 MG/20 ML AMP IV ONE (12:00)
[2017-02-06] MEDS: CARVEDILOL 3.125 MG TAB PO SCH ×2 (12:13→20:43)
[2017-02-06] MEDS: BUMETANIDE INJ 1 MG/4 ML VIAL IV PUSH SCH ×2 (12:14→20:42)
[2017-02-06 13:39] LABS: BASOPHIL % 0.1 % (0.0-2.0); HEMATOCRIT 31.1 % (35.0-46.0); LYMPH % 9.1 % (9.0-44.0); LYMPHOCYTE # 0.2 TH/MM3 (1.0-4.8); MEAN CELL VOLUME 89.7 FL (80.0-100.0); MEAN CORPUSCULAR HEMOGLOBIN 30.1 PG (27.0-34.0); MEAN CORPUSCULAR HGB CONC 33.5 % (32.0-36.0); MONO % 3.3 % (0.0-8.0); NEUT % 87.5 % (16.0-70.0); PLATELET COUNT 117 TH/MM3 (150-450); RED BLOOD COUNT 3.47 MIL/MM3 (4.00-5.30); WHITE BLOOD COUNT 2.3 TH/MM3 (4.0-11.0)
[2017-02-06 13:43] LABS: HEMO FLAGS DIFF FINAL
--- NOTE | 2017-02-06 14:18 | GIPROC ---
[facility] [address] [facility]. [facility], [id number] EGD PROCEDURE REPORT EXAM DATE: 02/06/2017 PATIENT NAME: Kaya Buckley MR #: [id number] BIRTHDATE: 1940 ATTENDING: Josemanuel Panda MD ORDER #: [id number] MESH CUTTER: Selma Noble and Unique Almaraz STATUS: inpatient INDICATIONS: The patient is a 76 yr old female here for an EGD due to anemia PROCEDURE PERFORMED: EGD w/ biopsy MEDICATIONS: None and Per Anesthesia. TOPICAL ANESTHETIC: none CONSENT: The patient understands the risks and benefits of the procedure and understands that these risks include, but are not limited to: sedation, allergic reaction, infection, perforation and/or bleeding. Alternative means of evaluation and treatment include, among others: physical exam, x-rays, and/or surgical intervention. The patient elects to proceed with this endoscopic procedure. medical equipment was checked for proper function. Hand hygiene and appropriate measures for infection prevention was taken. After the risks, benefits and alternatives of the procedure were thoroughly explained, Informed consent was verified, confirmed and timeout was successfully executed by the treatment team. The patient was anesthetized with topical anesthesia and the EC-3490Li (Pedi C) endoscope was introduced through the mouth and advanced to the second portion of the duodenum. Retroflexion was performed and was normal The gastroscope was then slowly withdrawn and removed. ESOPHAGUS: The esophagus was otherwise normal. STOMACH: There was erythematous moderate gastritis in the entire examined stomach. Multiple biopsies were performed. Stump of the PEG in place and intact. DUODENUM: The duodenal mucosa appeared normal in the bulb and second portion of the duodenum. ADVERSE EVENTS: There were no complications. IMPRESSIONS: 1. The esophagus was otherwise normal 2. There was erythematous gastritis in the entire examined stomach; multiple biopsies were performed 3. Stump of the PEG in place and intact 4. Normal duodenal mucosa in the bulb and second portion of the duodenum 5. Retroflexion was performed and was normal RECOMMENDATIONS: 1. Await biopsy results. Biopsy results will not be ready for 7-10 days. If you don't hear from us in two weeks, call our office for biopsy results. 2. Continue PPI PATIENT CONDITION: stable DISPOSITION: Observation REPEAT EXAM: NONE Josemanuel Panda MD eSigned: Josemanuel Panda MD 02/06/2017 2:17 PM cc:
--- NOTE | 2017-02-06 14:21 | GIPROC ---
[facility] [address] [facility]. [facility], [address] COLONOSCOPY PROCEDURE REPORT EXAM DATE: 02/06/2017 PATIENT NAME: Kaya Buckley MR #: [id number] BIRTHDATE: 1940 ENDOSCOPIST: Josemanuel Panda MD ORDER #: [id number] HIGH [employer]CHO[employer] COMPUTER SCIENCE TEACHER: Selma Noble and Unique Almaraz STATUS: inpatient INDICATIONS: The patient is a 76 yr old female here for a colonoscopy due to anemia, non-specific PROCEDURE PERFORMED: Colonoscopy, diagnostic MEDICATIONS: None and Per Anesthesia. PREP QUALITY: fair PREP TYPE:GoLytely ESTIMATED BLOOD LOSS: None CONSENT: The patient understands the risks and benefits of the procedure and understands that these risks include, but are not limited to: sedation, allergic reaction, infection, perforation and/or bleeding. Alternative means of evaluation and treatment include, among others: physical exam, x-rays, and/or surgical intervention. The patient elects to proceed with this endoscopic procedure. medical equipment was checked for proper function. Hand hygiene and appropriate measures for infection prevention was taken. After the risks, benefits and alternatives of the procedure were thoroughly explained, Informed consent was verified, confirmed and timeout was successfully executed by the treatment team. A digital exam was performed The Pentax EC-3490Li endoscope was introduced through the anus and advanced to the cecum, which was identified by both the appendix and ileocecal valve. The instrument was then slowly withdrawn as the colon was fully examined. COLON FINDINGS: Moderate diverticulosis was noted in the sigmoid colon and descending colon. Large external hemorrhoids were found. Retroflexed views revealed no abnormalities The scope was then completely withdrawn from the patient and the procedure terminated. PROCEDURE WITHDRAWAL TIME:9minutes ADVERSE EVENTS: There were no complications. IMPRESSIONS: 1. Moderate diverticulosis was noted in the sigmoid colon and descending colon 2. Large external hemorrhoids RECOMMENDATIONS: 1. No treatment 2. High fiber diet RECALL: Return 1 year Colonoscopy Josemanuel Panda MD eSigned: Josemanuel Panda MD 02/06/2017 2:21 PM cc: PATIENT NAME: Kaya Buckley MR#: [id number]
[2017-02-06] MEDS: NITROGLYCERIN 2% OINT 1 GM PACKET TOPICAL SCH ×2 (15:07→17:24)
--- NOTE | 2017-02-06 15:47 | ECHRPT ---
Indication: HEART FAILURE CONCLUSIONS Normal left ventricular size. Wall thickness is normal. The left ventricular systolic function is moderately reduced with an estimated ejection fraction in the range of 40-45%. Mitral annular calcification is present. [id number] mitral valve regurgitation. Moderate thickening of the mitral valve leaflets. Trace aortic valve regurgitation. Aortic valve sclerosis is present. There is mild tricuspid valve regurgitation. Large left pleural effusion present. BP: 117 / 59 HR: 65 Rhythm: MEASUREMENTS (Male / Female) Normal Values Technical Quality:Good 2D ECHO LV Diastolic Diameter PLAX 5.1 cm 4.2 - 5.9 / 3.9 - 5.3 cm LV Systolic Diameter PLAX 4.2 cm IVS Diastolic Thickness 1.0 cm 0.6 - 1.0 / 0.6 - 0.9 cm LVPW Diastolic Thickness 0.7 cm 0.6 - 1.0 / 0.6 - 0.9 cm LV Relative Wall Thickness 0.3 RV Internal Dim ED PLAX 2.4 cm LA Systolic Diameter LX 3.5 cm 3.0 - 4.0 / 2.7 - 3.8 cm DOPPLER AV Peak Velocity 229.0 cm/s AV Peak Gradient 21.0 mmHg AI Peak Velocity 253.0 cm/s AI Peak Gradient 25.6 mmHg AI Pressure Half Time 552.0 ms LVOT Peak Velocity 114.0 cm/s LVOT Peak Gradient 5.2 mmHg MV Peak Velocity 125.0 cm/s MV Peak Gradient 6.3 mmHg MV Mean Velocity 75.0 cm/s MV Mean Gradient 3.0 mmHg MR Peak Velocity 642.0 cm/s MR Peak Gradient 164.9 mmHg TR Peak Velocity 290.0 cm/s TR Peak Gradient 33.6 mmHg Right Atrial Pressure 10.0 mmHg Pulmonary Artery Systolic Pressu 43.6 mmHg Right Ventricular Systolic Press 43.6 mmHg FINDINGS LEFT VENTRICLE Normal left ventricular size. Wall thickness is normal. The left ventricular systolic function is moderately reduced with an estimated ejection fraction in the range of 40-45%. RIGHT VENTRICLE Normal right ventricular size and systolic function. LEFT ATRIUM The left atrial size is normal. RIGHT ATRIUM The right atrial size is normal. ATRIAL SEPTUM Normal atrial septal thickness without atrial level shunting by limited color doppler interrogation. AORTA The aortic root and proximal ascending aorta are normal in size on limited imaging. MITRAL VALVE Mitral annular calcification is present. Ldlm-[id number] mitral valve regurgitation. Moderate thickening of the mitral valve leaflets. AORTIC VALVE Trace aortic valve regurgitation. Aortic valve sclerosis is present. TRICUSPID VALVE There is mild tricuspid valve regurgitation. PULMONARY VALVE No pulmonary valve regurgitation or stenosis. VESSELS The inferior vena cava is normal in size. PERICARDIUM No pericardial effusion. El Reyes MD (Electronically Signed) Final Date:06 February 2017 15:46
--- NOTE | 2017-02-06 18:37 | MB ---
cc: ETHAN CH MD DATE OF CONSULTATION 02/06/17 REASON FOR CONSULTATION Possible pulmonary edema. HISTORY OF PRESENT ILLNESS The patient is a 76-year-old woman who has known coronary disease and who sees Dr. Montaño up in [place]. She is currently intubated and all history is obtained from the chart and the patient's . The patient's chart has been reviewed and her history up to this point has been summarized multiple times in other consults so will not repeat here but from a cardiac perspective she was recovering after a lengthy hospitalization from a non-STEMI at [facility] and was at [facility] but after hemodialysis the patient developed respiratory distress and hypoxemia and was intubated and transferred to the ICU where she remains. Her chest x-ray showed extensive bilateral interstitial infiltrates consistent with pulmonary edema versus atypical pneumonia. PAST MEDICAL HISTORY 1. Chronic kidney disease, recently on hemodialysis. 2. Coronary artery disease, status post multiple stents. 3. Hypertension. 4. History of anticoagulation (at this point I am unclear of the indication). CURRENT MEDICATIONS 1. Coreg 3.25 milligrams q. 12. 2. Bumex 2 milligrams IV b.i.d. 3. Zosyn. 4. Azithromycin. ALLERGIES SHELLFISH. PHYSICAL EXAMINATION VITAL SIGNS: Afebrile, pulse 74, respiratory rate 18, BP 151/82, satting 100 on 40% FIO2. GENERAL: Intubated and sedated. NECK: No JVD. LUNGS: Ventilator sounds appreciated. CARDIOVASCULAR: Regular rate and rhythm. No murmurs appreciated. ABDOMEN: Benign. EXTREMITIES: No edema. LABORATORY DATA White count 2.3, hematocrit 31.1, platelets 117. Sodium 138, potassium 3.4, chloride 98, bicarb 28.2, BUN 25, creatinine 1.42 down from 2.23. Troponin is 0.20. BNP is 1025. CARDIOLOGY STUDIES EKG shows sinus rhythm with anterior ST depressions consistent with ischemia. IMAGING STUDIES Chest x-ray shows slight improvement of aeration compared with yesterday which showed diffuse bilateral interstitial pulmonary edema versus atypical infection. IMPRESSION 1. Possible pulmonary edema. The patient is currently on IV Bumex and getting hemodialysis for fluid removal which seems appropriate. A CVP may be helpful to further assess her intravascular volume status. I will obtain an echocardiogram to also assess her LV function. 2. Elevated troponin. The patient's elevated troponin is due to her current critical condition and not indicative of acute coronary syndrome. Further recommendations will be based on the echocardiogram and her clinical course. Thank you again for the opportunity to participate in this patient's care. MD OSWALDO Austin/TOMASA /2:25 PM /6:29 PM
[2017-02-07] VITALS (21 sets, daily range): BP systolic 132–164; BP diastolic 60–77; PULSE 65–94; RESP 12–28; TEMP 98–98.8; O2SAT 91–100
[2017-02-07] MEDS: RESP: ALBUTEROL 2.5 MG/IPRATROPIUM 0.5 MG NEB (SCH) INH ×6 (00:13→20:13)
[2017-02-07] MEDS: methylPREDNISolone SOD SUCC 125 MG/2 ML VIAL IV PUSH SCH ×3 (00:55→18:51)
[2017-02-07] MEDS: NITROGLYCERIN 2% OINT 1 GM PACKET TOPICAL SCH ×4 (00:55→18:00)
[2017-02-07] MEDS: REMOVE OLD PATCH-FENTANYL T-DERMAL SCH (01:00)
[2017-02-07] MEDS: fentaNYL 50 MCG/HR PATCH T-DERMAL SCH ×2 (01:03→01:28)
[2017-02-07] MEDS: CHLORHEXIDINE GLUCONATE 2 % 1 PACK (2 CLOTHS) TOP SCH (04:00)
[2017-02-07] MEDS: PROPOFOL 1000 MG/100 ML INJ 100 ML IV PRN (04:18)
[2017-02-07] MEDS: PIPERACIL-TAZO 2.25 GM PREMIX 50 ML IV SCH ×3 (04:18→21:42)
[2017-02-07 04:43] LABS: AUTOMATED NEUTROPHIL # 3.6 TH/MM3 (1.8-7.7); BASOPHIL % 0.1 % (0.0-2.0); HEMATOCRIT 30.7 % (35.0-46.0); HEMO FLAGS DIFF FINAL; LYMPH % 5.6 % (9.0-44.0); LYMPHOCYTE # 0.2 TH/MM3 (1.0-4.8); MEAN CELL VOLUME 89.7 FL (80.0-100.0); MEAN CORPUSCULAR HEMOGLOBIN 29.7 PG (27.0-34.0); MEAN CORPUSCULAR HGB CONC 33.1 % (32.0-36.0); MONO % 2.2 % (0.0-8.0); NEUT % 92.1 % (16.0-70.0); PLATELET COUNT 129 TH/MM3 (150-450); RED BLOOD COUNT 3.42 MIL/MM3 (4.00-5.30); WHITE BLOOD COUNT 3.9 TH/MM3 (4.0-11.0)
[2017-02-07 04:50] LABS: PROTHROMBIN TIME - PATIENT 22.9 SEC (9.8-11.6)
[2017-02-07 05:37] LABS: ALKALINE PHOSPHATASE 83 U/L (45-117); ALT (GPT) 21 U/L (10-53); ANION GAP 16 MEQ/L (5-15); AST (GOT) 16 U/L (15-37); BICARBONATE 27.6 MEQ/L (21.0-32.0); BLOOD UREA NITROGEN 41 MG/DL (7-18); CHLORIDE 97 MEQ/L (98-107); GLOMERULAR FILTRATION RATE 24 ML/MIN (>89); MAGNESIUM 1.9 MG/DL (1.5-2.5); POTASSIUM 3.1 MEQ/L (3.5-5.1); SODIUM (NA) 141 MEQ/L (136-145); TOTAL BILIRUBIN ADULT 0.5 MG/DL (0.2-1.0)
--- NOTE | 2017-02-07 05:50 | RADRPT ---
EXAM DATE/TIME: 02/07/2017 04:44 [place] COMPARISON: CHEST SINGLE AP, February 06, 2017, 8:36. INDICATIONS : Evaluate for Pnuemonia MEDICAL HISTORY : None. SURGICAL HISTORY : None. ENCOUNTER: Subsequent ACUITY: 3 days PAIN SCORE: Non-responsive. LOCATION: Bilateral chest FINDINGS: The cardiac silhouette is enlarged in transverse diameter. Endotracheal tube is at the natalie and cou ld be retracted 3 cm. There are findings of congestive heart failure with interstitial and alveolar o pacity bilaterally. There is left lower lobe atelectasis versus pneumonia. CONCLUSION: 1. Cardiomegaly and findings of congestive heart failure. The findings have worsened when compared wi th the prior examination. 2. Endotracheal tube at the natalie. This could be retracted 3 cm Paulo Salazar MD on February 07, 2017 at 5:48 Board Certified Radiologist. This report was verified electronically.
[2017-02-07] MEDS: CHLORHEXIDINE 0.12% (ORAL KIT) 15 ML CUP MT SCH ×2 (08:00→20:00)
[2017-02-07] MEDS: POLYETHYLENE GLYCOL 17 GM PKG PO SCH (08:11)
[2017-02-07] MEDS: QUEtiapine FUMARATE 100 MG TAB PO SCH ×2 (08:12→21:43)
[2017-02-07] MEDS: DOCUSATE SODIUM 50 MG/SENNA 8.6 MG TAB PO SCH ×2 (08:12→21:00)
[2017-02-07] MEDS: CARVEDILOL 3.125 MG TAB PO SCH ×2 (08:12→21:43)
[2017-02-07] MEDS: AMIODARONE 200 MG TAB PO SCH (08:12)
[2017-02-07] MEDS: SUCRALFATE 1 GM TAB PO SCH ×3 (08:13→18:50)
[2017-02-07] MEDS: DILTIAZEM HCL 60 MG TAB PO SCH ×4 (08:13→21:42)
[2017-02-07] MEDS: BUMETANIDE INJ 1 MG/4 ML VIAL IV PUSH SCH ×2 (08:14→21:00)
[2017-02-07] MEDS: PANTOPRAZOLE SODIUM 40 MG VIAL IV PUSH SCH ×2 (08:14→21:28)
[2017-02-07] MEDS: CALCITONIN SALM 200 UNIT/SPRAY 3.7 ML BTLN NASAL SCH (08:16)
[2017-02-07] MEDS: SODIUM CHLORIDE 0.9% FLUSH 10 ML FLUSH IV FLUSH SCH ×2 (08:18→21:43)
--- NOTE | 2017-02-07 09:32 | HHI.CCPN ---
Subjective Remarks/Hospital Course 76-year-old female admitted to [facility] for rehabilitation management after prolonged hospitalization at [facility]. She was admitted to [facility] with acute coronary syndrome, status post stent placement in October last year. The patient was admitted with shortness of breath active chest pain and went into V. fib cardiopulmonary arrest. At that time her potassium was 7.8 and patient underwent emergent hemodialysis. Hospital course was complicated with sepsis ESBL, respiratory failure requiring tracheostomy, PEG care for tube feedings and hemodialysis Wednesdays. Patient had a Vas-Cath placed on the left for dialysis and the port placed on the right. Patient was successfully decannulated and transferred to [facility] for further rehabilitation off deconditioning. 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 Last night, shortly after her hemodialysis, patient developed respiratory distress hypoxemia at 80s. She was immediately placed on BiPAP with improvement in oxygenation and respiratory condition and is admitted to ICU under critical care service. SUBJ 02/05/17: I was emergently called to the bedside as the patient was in acute respiratory distress. Apparently in the last 20 minutes patient's respiratory status deteriorated while on BiPAP. On my arrival patient was severely tachypneic breathing at 40-45 breaths per minute on BiPAP 15/5 60% FiO2. Respiratory exam showed severe bilateral expiratory wheezing. Because of impending respiratory arrest I immediately intubated the patient and placed on mechanical ventilation. Post intubation chest x-ray showed severe, extensive bilateral right more than left alveolar and interstitial infiltrates indicating pulmonary edema versus atypical pneumonia. Discussed with nephrology , will restart hemodialysis. 2-D echo ordered as well as cardiac enzymes. Her hemoglobin was 6.9, a unit of blood was ordered but patient has not been transfused yet 02/06/17: Emergently intubated yesterday for acute hypoxemic respiratory failure. Chest x-ray shows pulmonary edema. Status post emergency dialysis with 2 L of fluid removed with interval improvement in chest x-ray today. Received 2 units PRBC yesterday with hemoglobin of 11 today. Plan for endoscopy today. PEEP 12, wean slowly. Cardiology consulted for pulmonary edema with history of ischemic heart disease and PCI with stents. (Apparently had cardia arrest/CA in October 2015, but no cath was done due to renal failure) 02/07/17: Patient remains intubated sedated but wakes up easily follows commands. Getting hemodialysis now. Chest x-rays from a.m. showed increasing pulmonary edema. I have requested nephrology to maximize fluid removal as tolerated. Appreciate cardiology consult. LVEF 40-45%. [id number] MR. EGD showed erythematous gastritis in the entire examined stomach; multiple biopsies were performed Objective Vital Signs Date Time Temp Pulse Resp B/P (MAP) Pulse Ox O2 Delivery O2 Flow Rate FiO2 02/07/17 08:03 98 40 02/07/17 06:00 66 02/07/17 04:00 98.5 20 164/77 (106) 02/05/17 08:52 Nasal Cannula 4.00 Intake and Output 02/07/17 02/07/17 02/08/17 08:00 16:00 00:00 Intake Total 291 ml Output Total 150 ml Balance 141 ml Result Diagram: 02/07/1732902/07/17329 Objective Remarks GENERAL: Elderly female who is intubated sedated SKIN: Warm and dry. HEAD: Normocephalic. EYES: No scleral icterus. No injection or drainage. ENT: Poor dentition, orotracheally intubated NECK: Supple, trachea midline. No JVD or lymphadenopathy. CARDIOVASCULAR: S1 S1-S2 normal no murmurs. RESPIRATORY: Intubated, air entry equal bilaterally, few basilar crackles and expiratory wheezes-improved compared to day of intubation GASTROINTESTINAL: Abdomen soft, non-tender, nondistended. PEG tube in place MUSCULOSKELETAL: No cyanosis, or edema. NEURO EXAM: Intubated heavily sedated most all extremities. Wakes up easily follows commands 4 A/P Assessment and Plan Neuro: - Propofol and Versed for sedation and ventilator synchrony - Start daily sedation vacation RESP: Acute hypoxemic and hypercarbic respiratory failure Flash pulmonary edema COPD exacerbation Probable HCAP - Emergently intubated and placed on mechanical ventilation - PRVC/AC 18/550/12 Fio2 down to 40%, Weaning PEEP - Start SBT with possible extubation if CXR improved after HD - IV Solu-Medrol 60 mg IV every 8 hours-reduce to 40 q8 - DuoNeb every 4 hours scheduled and when necessary. - Sputum culture broad-spectrum antibiotics with Zosyn and azithromycin CVS: Pulmonary edema most likely cardiogenic Mild troponin elevation History of coronary artery disease and PCI Ischemic cardiomyopathy EF 40-45% History of V Fib arrest Paroxysmal atrial fibrillation on chronic Coumadin - 2D Echo shows EF approximately 40-45% mild to mod MR - Cardiology consulted for flash pulmonary edema probably ischemic-continue conservative management - Holding aspirin and Coumadin due to anemia requiring transfusion, resume once cleared by GI - s/p Emergency hemodialysis 02/05 with 2 fluid removal, getting HD today 02/07 - Bumex 2 mg IV q12 per nephrology - Hydralazine and labetalol when necessary to keep SBP less than 150 - Continue statin, Continue amiodarone - Coreg 3.25 mg twice a day GI/HEME: Anemia requiring transfusion History of GI bleed - s/p 2 units PRBC; keep hemoglobin more than 8 if evidence of ACS - Protonix 40 mg IV every 12 - GI consulted-EGD 02/06 showed gastritis - Keep NPO for possible extubation : Chronic kidney disease stage IV - Hemodialysis per nephrology Dr. Shipman - IV Bumex 2 mg q12 ID: - Empiric Zosyn and azithromycin-DC azithromycin today - Follow-up on blood and sputum culture Endo: - Replace electrolytes carefully DVT GI prophylaxis - Teds SCDs - Coumadin on hold INR 2 - IV Protonix Critical Care: Level 3 Mary Montero MD Feb 07, 2017 09:32
[2017-02-07] MEDS: HEPARIN SODIUM - IV 10,000 UNITS/10 ML VIAL PRN (11:00)
[2017-02-07] MEDS: EPOETIN ALFA 10,000 UNITS/ML VIAL IV PUSH PRN (11:00)
[2017-02-07] MEDS: GENTAMICIN SULFATE (DIALYSIS USE ONLY) 20 MG/2 ML VIAL OTHER PRN (11:00)
[2017-02-07] MEDS: AZITHROMYCIN INJ 500 MG in SODIUM CHLOR 0.9% 250 ML INJ 250 ML IV SCH (12:00)
--- NOTE | 2017-02-07 12:01 | PD.CARD.PN ---
Subjective Subjective Remarks Doing better respiratory warren, awake on vent, 6+ L taken off by HD Objective Medications Current Medications Medications (Trade) Dose Ordered Sig/Yue Route Start Time Stop Time Status Last Admin (Narcan Inj) 0.4 mg UNSCH PRN IV PUSH 02/04/17 00:00 (Xanax) 0.25 mg Q8H PRN PO 02/04/17 00:15 Future Hold 02/05/17 04:57 (Cordarone) 200 mg DAILY PO 02/04/17 09:00 02/07/17 08:12 (Aspirin Chew) 81 mg DAILY CHEW 02/04/17 09:00 Future hold 02/05/17 08:34 (Cardizem) 60 mg QID PO 02/04/17 09:00 02/07/17 08:13 (Colace) 100 mg BID PO 02/04/17 09:00 Future Hold 02/04/17 20:40 (Duragesic 50 Mcg Patch.72 Hr) 1 patch Q72H T-DERMAL 02/04/17 01:00 02/07/17 01:28 (Miralax) 17 gm DAILY PO 02/04/17 09:00 (SEROquel) 100 mg BID PO 02/04/17 09:00 02/07/17 08:12 (Carafate) 1 gm TID PO 02/04/17 09:00 02/07/17 08:13 (Coumadin) 5 mg DAILY@1600 PO 02/04/17 16:00 Future Hold 02/04/17 16:50 Miscellaneous Information 1 Q72H T-DERMAL 02/04/17 01:00 (NS Flush) 2 ml UNSCH PRN IV FLUSH 02/04/17 01:15 (NS Flush) 2 ml BID IV FLUSH 02/04/17 09:00 02/07/17 08:18 (Tylenol) 650 mg Q6H PRN PO 02/04/17 01:15 (Morphine Inj) 2 mg Q2H PRN IV 02/04/17 01:30 02/05/17 12:01 (Zofran Inj) 4 mg Q6H PRN IV PUSH 02/04/17 01:15 (Duoneb Neb) 1 ampule Q2HR NEB PRN INH 02/04/17 01:15 Miscellaneous Information 1 Q361D XX 02/04/17 01:15 (Chlorhexidine 2% Cloth) 3 pack Taper DAILY@04 TOP 02/04/17 04:00 01/31/18 03:59 02/07/17 04:00 (Chlorhexidine 2% Cloth) 3 pack UNSCH PRN TOP 02/04/17 01:15 (Jacqueline-Colace) 1 tab BID PO 02/04/17 09:00 02/05/17 23:41 (Milk Of Magnesia Liq) 30 ml Q12H PRN PO 02/04/17 01:15 (Senokot) 17.2 mg Q12H PRN PO 02/04/17 01:15 (Dulcolax Supp) 10 mg DAILY PRN RECTAL 02/04/17 01:15 (Lactulose Liq) 30 ml DAILY PRN PO 02/04/17 01:15 Pharmacy Profile Note 0 ml @ 0 mls/hr UNSCH OTHER 02/04/17 01:45 Future Hold Piperacillin Sod/ Tazobactam Sod 50 ml @ 100 mls/hr Q8H IV 02/05/17 13:00 02/07/17 04:18 (Peridex 0.12% Liq) 15 ml BID@08,20 MT 02/05/17 20:00 02/07/17 08:00 Propofol 100 ml @ 2.181 mls/ hr TITRATE PRN IV 02/05/17 12:00 02/07/17 04:18 Sodium Chloride 1,000 ml @ 0 mls/hr Q0M PRN OTHER 02/05/17 10:04 02/07/17 11:00 (Heparin Inj) 8,000 units UNSCH PRN IV FLUSH 02/05/17 10:15 Sodium Chloride 1,000 ml @ 200 mls/hr Q5H PRN IV 02/05/17 10:04 02/05/17 12:59 Sodium Chloride 1,000 ml @ 0 mls/hr Q0M PRN OTHER 02/05/17 10:04 (Mannitol Inj) 12.5 gm UNSCH PRN IV 02/05/17 10:15 Albumin Human 100 ml @ 60 mls/hr UNSCH PRN IV 02/05/17 10:15 (NS Flush) 5 ml UNSCH PRN IV FLUSH 02/05/17 10:15 (Heparin Inj) UNSCH PRN .XX 02/05/17 10:15 02/07/17 11:00 (Gentamicin (Dialysis) Inj) 20 mg UNSCH PRN OTHER 02/05/17 10:15 02/07/17 11:00 (Zofran Inj) 4 mg UNSCH PRN IV PUSH 02/05/17 10:15 (Tylenol) 650 mg UNSCH PRN PO 02/05/17 10:15 (Benadryl) 25 mg UNSCH PRN PO 02/05/17 10:15 (Nitrostat Sl) 0.4 mg UNSCH PRN SL 02/05/17 10:15 (Catapres) 0.1 mg UNSCH PRN PO 02/05/17 10:15 (Epogen Inj) 10,000 units UNSCH PRN IV PUSH 02/05/17 10:15 02/07/17 11:00 (Gelfoam 12 Mm/7 Mm Top) 1 foam UNSCH PRN TOP 02/05/17 10:15 Azithromycin 500 mg/Sodium Chloride 250 ml @ 250 mls/hr Q24H IV 02/05/17 12:00 02/06/17 11:56 (Protonix Inj) 40 mg Q12HR IV PUSH 02/05/17 11:30 02/07/17 08:14 Midazolam HCl 100 ml @ 2 mls/hr TITRATE PRN IV 02/05/17 15:30 02/06/17 15:07 (Bumex Inj) 2 mg BID IV PUSH 02/06/17 11:06 02/07/17 08:14 (Coreg) 3.125 mg Q12HR PO 02/06/17 11:45 02/07/17 08:12 (Nitroglycerin 2% Oint) 1 inch Q6HR TOPICAL 02/06/17 14:15 02/07/17 05:59 (Duoneb Neb) 1 ampule Q6HR NEB INH 02/07/17 10:00 02/07/17 11:36 (SoluMEDROL INJ) 40 mg Q8H IV PUSH 02/07/17 12:00 Vital Signs / I&O Vital Signs Date Time Temp Pulse Resp B/P (MAP) Pulse Ox O2 Delivery O2 Flow Rate FiO2 02/07/17 11:36 100 40 02/07/17 10:00 71 02/07/17 08:03 98 40 02/07/17 08:00 66 02/07/17 08:00 98.8 66 18 161/70 (100) 95 02/07/17 08:00 40 02/07/17 06:00 66 02/07/17 04:31 99 40 02/07/17 04:00 40 02/07/17 04:00 98.5 74 20 164/77 (106) 95 02/07/17 04:00 74 02/07/17 02:00 68 02/07/17 00:14 96 40 02/07/17 00:00 40 02/07/17 00:00 65 02/07/17 00:00 98.7 65 12 134/60 (84) 94 02/06/17 22:06 97 40 02/06/17 22:00 66 02/06/17 20:00 40 02/06/17 20:00 71 02/06/17 20:00 98.5 71 18 159/67 (97) 95 02/06/17 18:00 72 02/06/17 16:10 99 40 02/06/17 16:00 72 02/06/17 16:00 98.8 72 18 147/85 (105) 98 02/06/17 16:00 40 02/06/17 14:00 69 02/06/17 12:00 98.5 67 18 143/65 (91) 99 02/06/17 12:00 40 02/06/17 12:00 67 I/O 02/06/17 02/06/17 02/06/17 02/07/17 02/07/17 02/07/17 07:00 15:00 23:00 07:00 15:00 23:00 Intake Total 600 ml 500 ml 250 ml 291 ml Output Total 2500 ml 325 ml 150 ml 6100 ml Balance -1900 ml 500 ml -75 ml 141 ml -6100 ml IV Total 300 ml 400 ml 150 ml 150 ml Tube Feeding 81 ml Tube Irrigant 60 ml Other 300 ml 100 ml 100 ml Output Urine Total 500 ml 325 ml 150 ml Stool Total 2000 ml Hemodialysis 6100 ml # Bowel Movements 4 1 Physical Exam GENERAL: intubated but awake, slightly agitated thusly CARDIOVASCULAR: Regular rate and rhythm without murmurs, gallops, or rubs. RESPIRATORY: Clear to auscultation. Breath sounds equal bilaterally. No wheezes , rales, or rhonchi. GASTROINTESTINAL: Abdomen soft, non-tender, nondistended. Normal active bowel sounds MUSCULOSKELETAL: Extremities without clubbing, cyanosis, or edema. NEURO: Moves all ext x4 Laboratory Laboratory Tests Test 02/06/17 12:20 02/07/17 03:30 White Blood Count 2.3 TH/MM3 3.9 TH/MM3 Red Blood Count 3.47 MIL/MM3 3.42 MIL/MM3 Hemoglobin 10.4 GM/DL 10.2 GM/DL Hematocrit 31.1 % 30.7 % Mean Corpuscular Volume 89.7 FL 89.7 FL Mean Corpuscular Hemoglobin 30.1 PG 29.7 PG Mean Corpuscular Hemoglobin Concent 33.5 % 33.1 % Red Cell Distribution Width 18.0 % 18.0 % Platelet Count 117 TH/MM3 129 TH/MM3 Mean Platelet Volume 8.4 FL 8.5 FL Neutrophils (%) (Auto) 87.5 % 92.1 % Lymphocytes (%) (Auto) 9.1 % 5.6 % Monocytes (%) (Auto) 3.3 % 2.2 % Eosinophils (%) (Auto) 0.0 % 0.0 % Basophils (%) (Auto) 0.1 % 0.1 % Neutrophils # (Auto) 2.0 TH/MM3 3.6 TH/MM3 Lymphocytes # (Auto) 0.2 TH/MM3 0.2 TH/MM3 Monocytes # (Auto) 0.1 TH/MM3 0.1 TH/MM3 Eosinophils # (Auto) 0.0 TH/MM3 0.0 TH/MM3 Basophils # (Auto) 0.0 TH/MM3 0.0 TH/MM3 CBC Comment DIFF FINAL DIFF FINAL Differential Comment Prothrombin Time 22.9 SEC Prothromb Time International Ratio 2.0 RATIO Blood Urea Nitrogen 41 MG/DL Creatinine 1.99 MG/DL Random Glucose 138 MG/DL Total Protein 5.7 GM/DL Albumin 2.7 GM/DL Calcium Level 7.9 MG/DL Magnesium Level 1.9 MG/DL Alkaline Phosphatase 83 U/L Aspartate Amino Transf (AST/SGOT) 16 U/L Alanine Aminotransferase (ALT/SGPT) 21 U/L Total Bilirubin 0.5 MG/DL Sodium Level 141 MEQ/L Potassium Level 3.1 MEQ/L Chloride Level 97 MEQ/L Carbon Dioxide Level 27.6 MEQ/L Anion Gap 16 MEQ/L Estimat Glomerular Filtration Rate 24 ML/MIN Imaging Last 24 hours Impressions Chest X-Ray 02/07/17 0600 Signed Impressions: Service Date/Time: Tuesday, February 07, 2017 04:44 - CONCLUSION: 1. Cardiomegaly and findings of congestive heart failure. The findings have worsened when compared with the prior examination. 2. Endotracheal tube at the natalie. This could be retracted 3 cm Paulo Salazar MD Assessment and Plan Problem List: (1) Systolic CHF ICD Codes: I50.20 - Unspecified systolic (congestive) heart failure Plan: slightly reduced lVEF, significant volume removed at HD; hope for extubation today. Continue bumex. (2) ESRD (end stage renal disease) on dialysis ICD Codes: N18.6 - End stage renal disease; Z99.2 - Dependence on renal dialysis Status: Acute (3) Hypoxia ICD Codes: R09.02 - Hypoxemia (4) Atrial flutter ICD Codes: I48.92 - Unspecified atrial flutter Plan: on warfarin; has been maintained on amio by primary fulfillment specialist Danyel Assessment and Plan One of my associates will cover for the weekend. Problem Qualifiers (1) Systolic CHF: Qualified Codes: I50.23 - Acute on chronic systolic (congestive) heart failure El Reyes MD Feb 07, 2017 12:00
--- NOTE | 2017-02-07 12:41 | HHI.NPPN ---
Subjective General Problems: Anemia Renal Failure: Chronic, Stage IV, Stage V Interval History She was dialyzed on a 4K, 6.1 liters fluid removal. Tolerated well. She is awake on vent, preparing for extubation. (Jovanna Ramires) Review of Systems General General Remarks unable to obtain (Jovanna Ramires) Objective Data Data 02/07/17 02/08/17 19:00 07:00 Output Total 6100 ml Balance -6100 ml Hemodialysis 6100 ml Vital Signs Date Time Temp Pulse Resp B/P (MAP) Pulse Ox O2 Delivery O2 Flow Rate FiO2 02/07/17 11:56 98 40 02/07/17 11:36 100 40 02/07/17 10:00 71 02/07/17 08:03 98 40 02/07/17 08:00 66 02/07/17 08:00 98.8 66 18 161/70 (100) 95 02/07/17 08:00 40 02/07/17 06:00 66 02/07/17 04:31 99 40 02/07/17 04:00 40 02/07/17 04:00 98.5 74 20 164/77 (106) 95 02/07/17 04:00 74 02/07/17 02:00 68 02/07/17 00:14 96 40 02/07/17 00:00 40 02/07/17 00:00 65 02/07/17 00:00 98.7 65 12 134/60 (84) 94 02/06/17 22:06 97 40 02/06/17 22:00 66 02/06/17 20:00 40 02/06/17 20:00 71 02/06/17 20:00 98.5 71 18 159/67 (97) 95 02/06/17 18:00 72 02/06/17 16:10 99 40 02/06/17 16:00 72 02/06/17 16:00 98.8 72 18 147/85 (105) 98 02/06/17 16:00 40 02/06/17 14:00 69 (Jovanna Ramires) -: 02/07/17 0330 02/07/17 0330 Imaging Last 72 hours Impressions Chest X-Ray 02/07/17 0600 Signed Impressions: Service Date/Time: Tuesday, February 07, 2017 04:44 - CONCLUSION: 1. Cardiomegaly and findings of congestive heart failure. The findings have worsened when compared with the prior examination. 2. Endotracheal tube at the natalie. This could be retracted 3 cm Paulo Salazar MD Chest X-Ray 02/06/17 0000 Signed Impressions: Service Date/Time: January 08:36 - CONCLUSION: Slight overall improvement in aeration. Slight worsening in left base aeration. Endotracheal tube tip is a bit low Winston Pierce MD Chest X-Ray 02/05/17 0000 Signed Impressions: Service Date/Time: Sunday, February 05, 2017 09:34 - CONCLUSION: 1. Tubes and lines, as above. No pneumothorax. 2. Diffuse bilateral interstitial and patchy alveolar opacities consistent with primary edema pattern versus infection/atypical infection. Madhu Draper MD Tubes & Lines: Perma-Cath Tubes & Lines Comment PEG, port a cath Drip Comment fentanyl (Jovanna Ramires B. DIRECTOR OF INFORMATICS) Physical Exam General Appearance: Well Developed, Comfortable Appearance Remarks intubated, awake, agitated (Jovanna Ramires B. DIRECTOR OF INFORMATICS) Throat Throat Exam: Oral Mucosa Redkey & Moist (Jovanna Ramires B. DIRECTOR OF INFORMATICS) Neck Neck Exam: Neck Supple (KeylaJovanna B. DIRECTOR OF INFORMATICS) Pulmonary Resp Exam: Breath Sounds Equal, Crackles, Rhonchi, Decreased Bases Resp Remarks course lung sounds, vented (KeylaJovanna B. DIRECTOR OF INFORMATICS) Cardiology CV Exam: Irregular, Tachycardia (Jovanna Ramires B. DIRECTOR OF INFORMATICS) Gastrointestinal/Abdomen GI Exam: Soft, Non-Tender (KeylaJovanna B. DIRECTOR OF INFORMATICS) Musculoskeletal MS Exam: Joints Intact, Normal Tone (Jovanna Ramires B. DIRECTOR OF INFORMATICS) Integumentary Skin Exam: Clear, Warm, Dry, Intact (Jovanna Ramires B. DIRECTOR OF INFORMATICS) Extremeties Extremities Exam: No Edema, Pedal Pulses Palpable (Jovanna Ramires B. DIRECTOR OF INFORMATICS) Neurologic Neuro Exam: Unresponsive, Sedated (Jovanna Ramires B. DIRECTOR OF INFORMATICS) Assessment/Plan Assessment Summary: Anemia of CKD, Hypertension, End Stage Renal Disease Electrolyte Assessment: Hypokalemia Problem List: (1) Acute renal failure ICD Codes: N17.9 - Acute kidney failure, unspecified Plan: She has been maintained on MWF HD since October/ cardiac arrest, she had a hx of CKD 4 Her creatinine has not been that high; in addition she makes quite a bit of urine 6 liters fluid removal today with dialysis, with a 4K dialysate Repeat K level in AM Has history of ischemic cardiomyopathy, monitor fluid status, CXR showing pulmonary edema, fluid overload Continue Bumex BID, 2 mg Monitor urine output She has permeate on left for HD use Repeat labs daily. It remains to be seen if she will require [facility] dialysis. HD on Friday if needed Avoid IVF, nephrotoxic agents, renally dose when appropriate (2) Anemia in chronic renal disease ICD Codes: N18.9 - Chronic kidney disease, unspecified; D63.1 - Anemia in chronic kidney disease Status: Chronic Plan: Hb improved Continue Epogen with HD Ordered 2 units PRBC Due for colonoscopy today (3) Hypertension, essential ICD Codes: I10 - Essential (primary) hypertension Status: Chronic Plan: She is on coreg Monitor blood pressure (4) Atrial flutter ICD Codes: I48.92 - Unspecified atrial flutter Plan: On dose adjusted coumadin and amiodarone (5) Hypoxia ICD Codes: R09.02 - Hypoxemia Plan: Intubated, pending extubation On Zosyn for empiric treatment of pneumonia Monitor fluid status (Jovanna Ramires) Problem List: (1) Acute renal failure ICD Codes: N17.9 - Acute kidney failure, unspecified Plan: She has been maintained on MWF HD since October/ cardiac arrest, she had a hx of CKD 4 Her creatinine has not been that high; in addition she makes quite a bit of urine 6 liters fluid removal today with dialysis, with a 4K dialysate Repeat K level in AM Has history of ischemic cardiomyopathy, monitor fluid status, CXR showing pulmonary edema, fluid overload Continue Bumex BID, 2 mg Monitor urine output She has permeate on left for HD use Repeat labs daily. It remains to be seen if she will require [facility] dialysis. HD on Friday if needed Avoid IVF, nephrotoxic agents, renally dose when appropriate (2) Anemia in chronic renal disease ICD Codes: N18.9 - Chronic kidney disease, unspecified; D63.1 - Anemia in chronic kidney disease Status: Chronic Plan: Hb improved Continue Epogen with HD Ordered 2 units PRBC Due for colonoscopy today (3) Hypertension, essential ICD Codes: I10 - Essential (primary) hypertension Status: Chronic Plan: She is on coreg Monitor blood pressure (4) Atrial flutter ICD Codes: I48.92 - Unspecified atrial flutter Plan: On dose adjusted coumadin and amiodarone (5) Hypoxia ICD Codes: R09.02 - Hypoxemia Plan: Intubated, pending extubation On Zosyn for empiric treatment of pneumonia Monitor fluid status Plan patient was seen and examined. Urine output is marginal. Dialysis today mainly for fluid removal, 6 liters removed. Monitor urine output and renal panel, electrolytes. (Zoran Shipman MD) Jovanna Ramires Feb 07, 2017 12:41 Zoran Shipman MD Feb 07, 2017 12:57
--- NOTE | 2017-02-07 13:39 | HHI.GIFU ---
Subjective Remarks Pt resting in bed in NAD. Awake, intubated. NO bleeding noted by nursing staff. (Amy Vaughn) Objective Vitals I&O Vital Signs Date Time Temp Pulse Resp B/P (MAP) Pulse Ox O2 Delivery O2 Flow Rate FiO2 02/07/17 12:40 99 40 02/07/17 11:56 98 40 02/07/17 11:36 100 40 02/07/17 10:00 71 02/07/17 08:03 98 40 02/07/17 08:00 66 02/07/17 08:00 98.8 66 18 161/70 (100) 95 02/07/17 08:00 40 02/07/17 06:00 66 02/07/17 04:31 99 40 02/07/17 04:00 40 02/07/17 04:00 98.5 74 20 164/77 (106) 95 02/07/17 04:00 74 02/07/17 02:00 68 02/07/17 00:14 96 40 02/07/17 00:00 40 02/07/17 00:00 65 02/07/17 00:00 98.7 65 12 134/60 (84) 94 02/06/17 22:06 97 40 02/06/17 22:00 66 02/06/17 20:00 40 02/06/17 20:00 71 02/06/17 20:00 98.5 71 18 159/67 (97) 95 02/06/17 18:00 72 02/06/17 16:10 99 40 02/06/17 16:00 72 02/06/17 16:00 98.8 72 18 147/85 (105) 98 02/06/17 16:00 40 02/06/17 14:00 69 I/O 02/06/17 02/06/17 02/06/17 02/07/17 02/07/17 02/07/17 07:00 15:00 23:00 07:00 15:00 23:00 Intake Total 600 ml 500 ml 250 ml 291 ml Output Total 2500 ml 325 ml 150 ml 6100 ml Balance -1900 ml 500 ml -75 ml 141 ml -6100 ml IV Total 300 ml 400 ml 150 ml 150 ml Tube Feeding 81 ml Tube Irrigant 60 ml Other 300 ml 100 ml 100 ml Output Urine Total 500 ml 325 ml 150 ml Stool Total 2000 ml Hemodialysis 6100 ml # Bowel Movements 4 1 Laboratory Laboratory Tests Test 02/07/17 03:30 White Blood Count 3.9 Red Blood Count 3.42 Hemoglobin 10.2 Hematocrit 30.7 Mean Corpuscular Volume 89.7 Mean Corpuscular Hemoglobin 29.7 Mean Corpuscular Hemoglobin Concent 33.1 Red Cell Distribution Width 18.0 Platelet Count 129 Mean Platelet Volume 8.5 Neutrophils (%) (Auto) 92.1 Lymphocytes (%) (Auto) 5.6 Monocytes (%) (Auto) 2.2 Eosinophils (%) (Auto) 0.0 Basophils (%) (Auto) 0.1 Neutrophils # (Auto) 3.6 Lymphocytes # (Auto) 0.2 Monocytes # (Auto) 0.1 Eosinophils # (Auto) 0.0 Basophils # (Auto) 0.0 CBC Comment DIFF FINAL Differential Comment Prothrombin Time 22.9 Prothromb Time International Ratio 2.0 Blood Urea Nitrogen 41 Creatinine 1.99 Random Glucose 138 Total Protein 5.7 Albumin 2.7 Calcium Level 7.9 Magnesium Level 1.9 Alkaline Phosphatase 83 Aspartate Amino Transf (AST/SGOT) 16 Alanine Aminotransferase (ALT/SGPT) 21 Total Bilirubin 0.5 Sodium Level 141 Potassium Level 3.1 Chloride Level 97 Carbon Dioxide Level 27.6 Anion Gap 16 Estimat Glomerular Filtration Rate 24 Date/Time Source Procedure Growth Status 02/05/17 10:50 Sputum Endotracheal Gram Stain - Final Complete 02/05/17 10:50 Sputum Endotracheal Sputum Culture - Final MODERATE GROWTH NORMAL RESPIRATORY CHIDI Complete Physical Exam HEENT: PERRL; normocephalic; atraumatic; no jaundice. intubated CHEST: CTA, shallow CARDIAC: irr HR ABDOMEN: Soft, nondistended, nontender; no hepatosplenomegaly; bowel sounds are present in all four quadrants.; PEG site dry and clean EXTREMITIES: No clubbing, cyanosis, +BUE edema. SKIN: small ecchymoses throughout; no rash; no jaundice. PATIENT ADVOCATE: awake, lethargic (Amy Vaughn) Assessment and Plan Plan ASSESSMENT: - Anemia with drop in Hgb. GI was consulted for possible GI bleeding, as she had a drop in Hgb from 7.6 to 6.9 overnight. Coumadin is on hold. s/p EGD/colonoscopy 02/06 found large internal hemorrhoids, moderat diverticulosis, erythematous gatritis. bx pending HH improved after blood transfusion 02/05 and has very gradually decreased from 11 to 10.2 INR 2.0 - Dysphagia. S/P PEG tube placement at [facility] (11/26). TF running 20ml/hr - Respiratory failure. Recent prolonged hospitalization 11/14 at [facility], s/p tracheostomy/peg. Was at [facility] 11/26-01/23. Tracheostomy was decannulated prior to arrival at [place]. Halicated from [place] on 02/04 for respiratory distress, intubated early 02/05. Vent per [facility]. - Anticoagulation. amiodarone, cardizem. No hx of afib. ? vfib while at [place]. She came to [place] on this.coumadin held - ESRD with electrolyte abnormalities, HD- had CKD, started on HD during her hospitalization at [place]. Mondays, Wednesdays, Friday. - CAD, HTN per attending. PLAN: - await bx - monitor HH - transfuse if needed - cont PPI - Hold coumadin - Supportive care - Further recommendations to follow based on results of above - PT seen and examined by Dr. Panda and myself and this note is written on his behalf (Amy Vaughn) Physician Comments Seen and examined. Plan as above. Will follow up with you. (Josemanuel Panda MD) Amy Vaughn Feb 07, 2017 13:39 Josemanuel Panda MD Feb 07, 2017 18:47
--- NOTE | 2017-02-07 14:41 | RADRPT ---
EXAM DATE/TIME: 02/07/2017 13:47 [facility] COMPARISON: CHEST SINGLE AP, February 07, 2017, 4:44. INDICATIONS : Short of breath. MEDICAL HISTORY : none known SURGICAL HISTORY : none known ENCOUNTER: Initial ACUITY: 2 days PAIN SCORE: Non-responsive. LOCATION: Bilateral chest FINDINGS: Dialysis catheter, and progress in good position. Mild interstitial edema, improved in the interval. Heart is minimally enlarged. CONCLUSION: Interval improvement less interstitial edema. Jozef Chen MD FACR on February 07, 2017 at 14:39 Board Certified Radiologist. This report was verified electronically.
[2017-02-08] VITALS (10 sets, daily range): BP systolic 118–181; BP diastolic 56–100; PULSE 55–96; RESP 22–29; TEMP 97.9–98.5; O2SAT 89–95
[2017-02-08] MEDS: NITROGLYCERIN 2% OINT 1 GM PACKET TOPICAL SCH ×4 (01:00→19:30)
[2017-02-08] MEDS: methylPREDNISolone SOD SUCC 125 MG/2 ML VIAL IV PUSH SCH ×3 (02:59→20:44)
[2017-02-08] MEDS: ACETAMINOPHEN 325 MG TAB PO PRN (03:01)
[2017-02-08] MEDS: RESP: ALBUTEROL 2.5 MG/IPRATROPIUM 0.5 MG NEB (SCH) INH ×4 (03:30→20:30)
[2017-02-08] MEDS: CHLORHEXIDINE GLUCONATE 2 % 1 PACK (2 CLOTHS) TOP SCH (04:00)
[2017-02-08] MEDS: PIPERACIL-TAZO 2.25 GM PREMIX 50 ML IV SCH ×3 (04:56→20:45)
--- NOTE | 2017-02-08 05:20 | RADRPT ---
EXAM DATE/TIME: 02/08/2017 04:28 [facility] COMPARISON: CHEST SINGLE AP, February 07, 2017, 13:47. INDICATIONS : Shortness of breath MEDICAL HISTORY : None. SURGICAL HISTORY : None. ENCOUNTER: Subsequent ACUITY: 3 days PAIN SCORE: 8/10 LOCATION: Bilateral chest FINDINGS: The cardiac silhouette is enlarged in transverse diameter. A permacath is in place via left internal jugular approach with its tip in the superior vena cava. The lungs are free of acute parenchymal opac ity. No effusions are identified. CONCLUSION: 1. Cardiomegaly. Resolution of the previously seen vascular congestion Paulo Salazar MD on February 08, 2017 at 5:18 Board Certified Radiologist. This report was verified electronically.
[2017-02-08 05:41] LABS: INTERNATIONAL NORMALIZED RATIO 1.7 RATIO; PROTHROMBIN TIME - PATIENT 18.8 SEC (9.8-11.6)
[2017-02-08 05:54] LABS: AUTOMATED NEUTROPHIL # 4.9 TH/MM3 (1.8-7.7); BASOPHIL % 0.1 % (0.0-2.0); HEMATOCRIT 32.6 % (35.0-46.0); HEMO FLAGS DIFF FINAL; LYMPH % 4.8 % (9.0-44.0); LYMPHOCYTE # 0.3 TH/MM3 (1.0-4.8); MEAN CELL VOLUME 92.4 FL (80.0-100.0); MEAN CORPUSCULAR HEMOGLOBIN 30.5 PG (27.0-34.0); MONO % 2.7 % (0.0-8.0); NEUT % 92.4 % (16.0-70.0); PLATELET COUNT 130 TH/MM3 (150-450); RED BLOOD COUNT 3.52 MIL/MM3 (4.00-5.30); RED CELL DISTRIBUTION WIDTH 18.4 % (11.6-17.2); WHITE BLOOD COUNT 5.3 TH/MM3 (4.0-11.0)
[2017-02-08 05:55] LABS: ANION GAP 12 MEQ/L (5-15); AST (GOT) 12 U/L (15-37); BICARBONATE 29.1 MEQ/L (21.0-32.0); BLOOD UREA NITROGEN 45 MG/DL (7-18); CHLORIDE 96 MEQ/L (98-107); GLOMERULAR FILTRATION RATE 24 ML/MIN (>89); MAGNESIUM 2.1 MG/DL (1.5-2.5); POTASSIUM 3.5 MEQ/L (3.5-5.1); SODIUM (NA) 137 MEQ/L (136-145)
[2017-02-08 06:07] LABS: ALKALINE PHOSPHATASE 85 U/L (45-117); ALT (GPT) 23 U/L (10-53); TOTAL BILIRUBIN ADULT 0.5 MG/DL (0.2-1.0)
[2017-02-08] MEDS: CHLORHEXIDINE 0.12% (ORAL KIT) 15 ML CUP MT SCH ×2 (08:00→20:00)
--- NOTE | 2017-02-08 08:02 | HHI.CCPN ---
Subjective Remarks/Hospital Course 76-year-old female admitted to [facility] for rehabilitation management after prolonged hospitalization at [facility]. She was admitted to [facility] with acute coronary syndrome, status post stent placement in October last year. The patient was admitted with shortness of breath active chest pain and went into V. fib cardiopulmonary arrest. At that time her potassium was 7.8 and patient underwent emergent hemodialysis. Hospital course was complicated with sepsis ESBL, respiratory failure requiring tracheostomy, PEG care for tube feedings and hemodialysis Wednesdays. Patient had a Vas-Cath placed on the left for dialysis and the port placed on the right. Patient was successfully decannulated and transferred to [facility] for further rehabilitation off deconditioning. 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 Last night, shortly after her hemodialysis, patient developed respiratory distress hypoxemia at 80s. She was immediately placed on BiPAP with improvement in oxygenation and respiratory condition and is admitted to ICU under critical care service. SUBJ 02/05/17: I was emergently called to the bedside as the patient was in acute respiratory distress. Apparently in the last 20 minutes patient's respiratory status deteriorated while on BiPAP. On my arrival patient was severely tachypneic breathing at 40-45 breaths per minute on BiPAP 15/5 60% FiO2. Respiratory exam showed severe bilateral expiratory wheezing. Because of impending respiratory arrest I immediately intubated the patient and placed on mechanical ventilation. Post intubation chest x-ray showed severe, extensive bilateral right more than left alveolar and interstitial infiltrates indicating pulmonary edema versus atypical pneumonia. Discussed with nephrology , will restart hemodialysis. 2-D echo ordered as well as cardiac enzymes. Her hemoglobin was 6.9, a unit of blood was ordered but patient has not been transfused yet 02/06/17: Emergently intubated yesterday for acute hypoxemic respiratory failure. Chest x-ray shows pulmonary edema. Status post emergency dialysis with 2 L of fluid removed with interval improvement in chest x-ray today. Received 2 units PRBC yesterday with hemoglobin of 11 today. Plan for endoscopy today. PEEP 12, wean slowly. Cardiology consulted for pulmonary edema with history of ischemic heart disease and PCI with stents. (Apparently had cardia arrest/RI in October 2015, but no cath was done due to renal failure) 02/07/17: Patient remains intubated sedated but wakes up easily follows commands. Getting hemodialysis now. Chest x-rays from a.m. showed increasing pulmonary edema. I have requested nephrology to maximize fluid removal as tolerated. Appreciate cardiology consult. LVEF 40-45%. [id number] MR. EGD showed erythematous gastritis in the entire examined stomach; multiple biopsies were performed 02/08/17: Patient had hemodialysis yesterday with 6.1 L of fluid removed. Post hemodialysis x-ray showed near complete resolution of pulmonary edema, patient was extubated successfully. Today breathing comfortably chest x-ray shows no evidence of significant pulmonary edema. Good oxygen saturation. Urine output approximately 500 mL Objective Vital Signs Date Time Temp Pulse Resp B/P (MAP) Pulse Ox O2 Delivery O2 Flow Rate FiO2 02/08/17 04:00 82 02/08/17 00:00 97.9 26 118/56 (76) 93 02/07/17 19:20 Nasal Cannula 4.00 02/07/17 14:00 35 Result Diagram: 02/08/17 0500 02/08/17 0500 Other Results Microbiology Date/Time Source Procedure Growth Status 02/05/17 10:50 Sputum Endotracheal Gram Stain - Final Complete 02/05/17 10:50 Sputum Endotracheal Sputum Culture - Final MODERATE GROWTH NORMAL RESPIRATORY CHIDI Complete Objective Remarks GENERAL: Elderly female who is lying in bed comfortably SKIN: Warm and dry. HEAD: Normocephalic. EYES: No scleral icterus. No injection or drainage. ENT: Poor dentition, air way patent NECK: Supple, trachea midline. No JVD or lymphadenopathy. CARDIOVASCULAR: S1 S1-S2 normal no murmurs. RESPIRATORY: Air entry equal bilaterally with minimal crackles at bases GASTROINTESTINAL: Abdomen soft, non-tender, nondistended. PEG tube in place MUSCULOSKELETAL: No cyanosis, or edema. NEURO EXAM: Alert awake oriented 3. No focal deficits A/P Assessment and Plan Neuro: - Minimize sedation RESP: Acute hypoxemic and hypercarbic respiratory failure-resolved Flash pulmonary edema COPD - Emergently intubated and placed on mechanical ventilation 02/05- extubated 01/14 after HD removed 6.1 L - IV Solu-Medrol 40 mg IV every 8 hours - DuoNeb every 4 hours scheduled and when necessary. - Sputum culture -neg. DC broad-spectrum antibiotics with Zosyn and azithromycin - change to Levaquin for 5 days CVS: Pulmonary edema most likely cardiogenic Mild troponin elevation History of coronary artery disease and PCI Ischemic cardiomyopathy EF 40-45%, Mild to mod MR History of V Fib arrest Paroxysmal atrial fibrillation on chronic Coumadin - 2D Echo shows EF approximately 40-45% mild to mod MR - Cardiology consulted for flash pulmonary edema probably ischemic-continue conservative management - Holding aspirin and Coumadin due to anemia requiring transfusion, resume Aspirin today - s/p Emergency hemodialysis 02/05 with 2 fluid removal, HD 6.1 L removed 02/07 - Bumex 2 mg IV q12 per nephrology - Hydralazine and labetalol when necessary to keep SBP less than 150 - Continue statin, Continue amiodarone - Coreg 3.25 mg twice a day, add hydralazine 25 mg by mouth every 8 hours for blood pressure control and mitral regurgitation GI/HEME: Anemia requiring transfusion History of GI bleed - s/p 2 units PRBC; keep hemoglobin more than 8 if evidence of ACS - Protonix 40 mg IV every 12 - GI consulted-EGD 02/06 showed gastritis - Continue tube feeds, evaluation by speech : Chronic kidney disease stage IV - Hemodialysis per nephrology Dr. Shipman. 6.1 L removed yesterday - IV Bumex 2 mg q12 ID: - DC Empiric Zosyn. Levaquin for 5 days - Sputum culture negative Endo: - Replace electrolytes carefully DVT GI prophylaxis - Teds SCDs - Coumadin on hold INR 2 - IV Protonix Critical Care: Level 2 Consult [facility] to assume care in am 02/08/17 Mary Montero MD Feb 08, 2017 08:02
--- NOTE | 2017-02-08 08:14 | HHI.GIFU ---
Subjective Remarks Followup for anemia and PEG tube. Patient is awake, in no apparent distress. Extubated yesterday. Denies abdominal pain. TF running at 20 mL/hour. (Deandra Shukla) Objective Vitals I&O Vital Signs Date Time Temp Pulse Resp B/P (MAP) Pulse Ox O2 Delivery O2 Flow Rate FiO2 02/08/17 04:00 82 02/08/17 02:00 55 02/08/17 00:00 97.9 60 26 118/56 (76) 93 02/08/17 00:00 60 02/07/17 22:00 78 02/07/17 20:00 98.1 79 28 142/63 (89) 94 02/07/17 20:00 79 02/07/17 19:20 96 Nasal Cannula 4.00 02/07/17 18:00 78 02/07/17 16:00 98.0 94 20 132/65 (87) 91 02/07/17 16:00 93 02/07/17 14:35 98 Nasal Cannula 4 02/07/17 14:35 98 Nasal Cannula 4.00 02/07/17 14:00 35 02/07/17 14:00 68 02/07/17 13:10 98 40 02/07/17 12:40 99 40 02/07/17 12:00 98.5 84 20 161/70 (100) 97 02/07/17 12:00 84 02/07/17 12:00 40 02/07/17 11:56 98 40 02/07/17 11:36 100 40 02/07/17 10:00 71 02/07/17 08:03 98 40 I/O 02/07/17 02/07/17 02/07/17 02/08/17 02/08/17 02/08/17 07:00 15:00 23:00 07:00 15:00 23:00 Intake Total 291 ml 813 ml Output Total 150 ml 6100 ml 509 ml Balance 141 ml -6100 ml 304 ml IV Total 150 ml 509 ml Tube Feeding 81 ml 304 ml Tube Irrigant 60 ml Output Urine Total 150 ml 509 ml Hemodialysis 6100 ml # Bowel Movements 1 Laboratory Laboratory Tests Test 02/08/17 05:00 White Blood Count 5.3 Red Blood Count 3.52 Hemoglobin 10.8 Hematocrit 32.6 Mean Corpuscular Volume 92.4 Mean Corpuscular Hemoglobin 30.5 Mean Corpuscular Hemoglobin Concent 33.0 Red Cell Distribution Width 18.4 Platelet Count 130 Mean Platelet Volume 8.3 Neutrophils (%) (Auto) 92.4 Lymphocytes (%) (Auto) 4.8 Monocytes (%) (Auto) 2.7 Eosinophils (%) (Auto) 0.0 Basophils (%) (Auto) 0.1 Neutrophils # (Auto) 4.9 Lymphocytes # (Auto) 0.3 Monocytes # (Auto) 0.1 Eosinophils # (Auto) 0.0 Basophils # (Auto) 0.0 CBC Comment DIFF FINAL Differential Comment Prothrombin Time 18.8 Prothromb Time International Ratio 1.7 Blood Urea Nitrogen 45 Creatinine 2.06 Random Glucose 141 Total Protein 6.4 Albumin 3.3 Calcium Level 8.0 Phosphorus Level 4.2 Magnesium Level 2.1 Alkaline Phosphatase 85 Aspartate Amino Transf (AST/SGOT) 12 Alanine Aminotransferase (ALT/SGPT) 23 Total Bilirubin 0.5 Sodium Level 137 Potassium Level 3.5 Chloride Level 96 Carbon Dioxide Level 29.1 Anion Gap 12 Estimat Glomerular Filtration Rate 24 Date/Time Source Procedure Growth Status 02/05/17 10:50 Sputum Endotracheal Gram Stain - Final Complete 02/05/17 10:50 Sputum Endotracheal Sputum Culture - Final MODERATE GROWTH NORMAL RESPIRATORY CHIID Complete Imaging Last Impressions Chest X-Ray 02/08/17 0600 Signed Impressions: Service Date/Time: Friday, February 08, 2017 04:28 - CONCLUSION: 1. Cardiomegaly. Resolution of the previously seen vascular congestion Paulo Salazar MD Physical Exam HEENT: Normocephalic; atraumatic; no jaundice. CHEST: CTA CARDIAC: RRR ABDOMEN: Soft, obese, nondistended, nontender; no hepatosplenomegaly; bowel sounds are present in all four quadrants.; PEG C/D/I EXTREMITIES: No clubbing or edema SKIN: No rash or jaundice [employer]: Alert and awake (Deandra Shukla) Assessment and Plan Plan ASSESSMENT: - Anemia with drop in Hgb. GI was consulted for possible GI bleeding, as she had a drop in Hgb from 7.6 to 6.9 overnight. Coumadin is on hold. s/p EGD/colonoscopy 02/06 found large internal hemorrhoids, moderate diverticulosis, erythematous gastritis. bx pending improved after blood transfusion 02/05 (2 PRBC). HH (02/08)-10.8/32.6 - Dysphagia. S/P PEG tube placement at [facility] (11/26). TF running 20ml/hr - Respiratory failure. Recent prolonged hospitalization 11/14 at [facility], s/p tracheostomy/peg. Was at [facility] 11/26-01/23. Tracheostomy was decannulated prior to arrival at [facility]. Halicated from [facility] on 02/04 for respiratory distress, intubated early 02/05. Patient extubated . - Anticoagulation. amiodarone, cardizem. No hx of afib. ? vfib while at [place]. She came to [facility] on this. Coumadin held - ESRD with electrolyte abnormalities, HD- had CKD, started on HD during her hospitalization at [place]. Mondays, Wednesdays, Friday. - CAD, HTN per attending. PLAN: - Await biopsies - Monitor HH, transfuse if needed - Continue PPI - Hold Coumadin - Supportive care - Further recommendations to follow based on results of above Patient seen and examined by Dr. Panda and myself and this note is written on his behalf (Deandra Shukla) Physician Comments Seen and examined, plan as above. Resume anticoagulation if needed. Monitor for GI bleeding. Further recommendations to follow. (Josemanuel Panda MD) Deandra Shukla Feb 08, 2017 08:14 Josemanuel Panda MD Feb 08, 2017 10:58
[2017-02-08] MEDS: DOCUSATE SODIUM 50 MG/SENNA 8.6 MG TAB PO SCH ×2 (09:00→20:45)
[2017-02-08] MEDS: POLYETHYLENE GLYCOL 17 GM PKG PO SCH (09:00)
[2017-02-08] MEDS: SODIUM CHLORIDE 0.9% FLUSH 10 ML FLUSH IV FLUSH SCH ×2 (09:00→21:00)
[2017-02-08] MEDS: hydrALAZINE HCL 25 MG TAB PO SCH ×3 (09:00→20:45)
[2017-02-08] MEDS: CALCITONIN SALM 200 UNIT/SPRAY 3.7 ML BTLN NASAL SCH (09:00)
[2017-02-08] MEDS: DILTIAZEM HCL 60 MG TAB PO SCH ×4 (09:22→20:45)
[2017-02-08] MEDS: QUEtiapine FUMARATE 100 MG TAB PO SCH ×2 (09:23→20:45)
[2017-02-08] MEDS: ASPIRIN 81 MG CHEW TAB CHEW SCH (09:23)
[2017-02-08] MEDS: BUMETANIDE INJ 1 MG/4 ML VIAL IV PUSH SCH ×2 (09:23→20:45)
[2017-02-08] MEDS: CARVEDILOL 3.125 MG TAB PO SCH ×2 (09:23→20:45)
[2017-02-08] MEDS: AMIODARONE 200 MG TAB PO SCH (09:23)
[2017-02-08] MEDS: PANTOPRAZOLE SODIUM 40 MG VIAL IV PUSH SCH ×2 (09:24→20:45)
[2017-02-08] MEDS: SUCRALFATE 1 GM TAB PO SCH ×3 (09:25→19:30)
[2017-02-08] MEDS: MORPHINE SULFATE 2 MG/ML INJ IV PRN (11:00)
[2017-02-08] MEDS: AZITHROMYCIN INJ 500 MG in SODIUM CHLOR 0.9% 250 ML INJ 250 ML IV SCH (12:00)
[2017-02-09] VITALS (8 sets, daily range): BP systolic 162–207; BP diastolic 82–100; PULSE 75–94; RESP 16–28; TEMP 97.6–98.5; O2SAT 89–96
[2017-02-09] MEDS: CHLORHEXIDINE GLUCONATE 2 % 1 PACK (2 CLOTHS) TOP SCH (01:44)
[2017-02-09] MEDS: MORPHINE SULFATE 2 MG/ML INJ IV PRN ×3 (02:30→12:28)
[2017-02-09] MEDS ORDERED: LABETALOL HCL 100 MG/20 ML VIAL IV PUSH ONE (03:45)
[2017-02-09] MEDS: methylPREDNISolone SOD SUCC 125 MG/2 ML VIAL IV PUSH SCH ×3 (03:57→21:10)
[2017-02-09] MEDS: PIPERACIL-TAZO 2.25 GM PREMIX 50 ML IV SCH ×2 (03:58→14:55)
[2017-02-09] MEDS: RESP: ALBUTEROL 2.5 MG/IPRATROPIUM 0.5 MG NEB (SCH) INH ×4 (04:08→20:26)
[2017-02-09] MEDS: hydrALAZINE HCL 25 MG TAB PO SCH ×3 (04:48→21:09)
[2017-02-09] MEDS: NITROGLYCERIN 2% OINT 1 GM PACKET TOPICAL SCH ×4 (04:49→16:51)
[2017-02-09 05:50] LABS: INTERNATIONAL NORMALIZED RATIO 1.5 RATIO; PROTHROMBIN TIME - PATIENT 16.3 SEC (9.8-11.6)
[2017-02-09] MEDS: LABETALOL HCL 100 MG/20 ML VIAL IV PUSH PRN ×2 (05:52→19:28)
[2017-02-09 06:54] LABS: ALKALINE PHOSPHATASE 80 U/L (45-117); ALT (GPT) 20 U/L (10-53); ANION GAP 14 MEQ/L (5-15); AST (GOT) 12 U/L (15-37); BICARBONATE 27.8 MEQ/L (21.0-32.0); BLOOD UREA NITROGEN 64 MG/DL (7-18); CHLORIDE 94 MEQ/L (98-107); GLOMERULAR FILTRATION RATE 18 ML/MIN (>89); POTASSIUM 3.1 MEQ/L (3.5-5.1); SODIUM (NA) 136 MEQ/L (136-145); TOTAL BILIRUBIN ADULT 0.6 MG/DL (0.2-1.0)
[2017-02-09] MEDS: CHLORHEXIDINE 0.12% (ORAL KIT) 15 ML CUP MT SCH ×2 (08:00→20:00)
[2017-02-09] MEDS: PANTOPRAZOLE SODIUM 40 MG VIAL IV PUSH SCH (08:56)
[2017-02-09] MEDS: DILTIAZEM HCL 60 MG TAB PO SCH ×4 (08:57→21:09)
[2017-02-09] MEDS: BUMETANIDE INJ 1 MG/4 ML VIAL IV PUSH SCH (08:57)
[2017-02-09] MEDS: CARVEDILOL 3.125 MG TAB PO SCH ×2 (08:57→21:08)
[2017-02-09] MEDS: DOCUSATE SODIUM 50 MG/SENNA 8.6 MG TAB PO SCH ×2 (08:57→21:08)
[2017-02-09] MEDS: ASPIRIN 81 MG CHEW TAB CHEW SCH (08:57)
[2017-02-09] MEDS: AMIODARONE 200 MG TAB PO SCH (08:57)
[2017-02-09] MEDS: POLYETHYLENE GLYCOL 17 GM PKG PO SCH (08:57)
[2017-02-09] MEDS: SUCRALFATE 1 GM TAB PO SCH ×3 (08:57→16:50)
[2017-02-09] MEDS: SODIUM CHLORIDE 0.9% FLUSH 10 ML FLUSH IV FLUSH SCH ×2 (09:00→21:10)
[2017-02-09] MEDS: QUEtiapine FUMARATE 100 MG TAB PO SCH ×2 (09:00→21:09)
[2017-02-09] MEDS: CALCITONIN SALM 200 UNIT/SPRAY 3.7 ML BTLN NASAL SCH (09:00)
[2017-02-09] MEDS ORDERED: cloNIDine HCL 0.1 MG TAB PO PRN (10:15)
[2017-02-09] MEDS: AZITHROMYCIN INJ 500 MG in SODIUM CHLOR 0.9% 250 ML INJ 250 ML IV SCH (12:00)
--- NOTE | 2017-02-09 13:58 | HHI.NPPN ---
Subjective General Problems: Anemia Renal Failure: Chronic, Stage IV, Stage V Review of Systems General General Remarks unable to obtain Objective Data Data Vital Signs Date Time Temp Pulse Resp B/P (MAP) Pulse Ox O2 Delivery O2 Flow Rate FiO2 02/09/17 09:36 96 Nasal Cannula 2.00 02/09/17 08:00 98.5 78 16 178/84 93 02/09/17 04:53 20 02/09/17 04:00 98.2 94 28 207/100 (135) 93 02/09/17 00:00 98.1 75 26 162/82 (108) 89 02/08/17 20:32 92 Nasal Cannula 2.00 02/08/17 20:00 98.2 96 29 162/75 (104) 89 02/08/17 16:00 98.5 94 25 152/79 (103) 93 -: 02/08/17 0500 02/09/17 0500 Tubes & Lines: Perma-Cath Tubes & Lines Comment PEG, port a cath Drip Comment fentanyl Physical Exam General Appearance: Well Developed, Comfortable Throat Throat Exam: Oral Mucosa [place] & Moist Neck Neck Exam: Neck Supple Pulmonary Resp Exam: Breath Sounds Equal, Crackles, Rhonchi, Decreased Bases Cardiology CV Exam: Irregular, Tachycardia Gastrointestinal/Abdomen GI Exam: Soft, Non-Tender Musculoskeletal MS Exam: Joints Intact, Normal Tone Integumentary Skin Exam: Clear, Warm, Dry, Intact Extremeties Extremities Exam: No Edema, Pedal Pulses Palpable Neurologic Neuro Exam: Unresponsive, Sedated Assessment/Plan Assessment Summary: Anemia of CKD, Hypertension, End Stage Renal Disease Electrolyte Assessment: Hypokalemia Problem List: (1) Acute renal failure ICD Codes: N17.9 - Acute kidney failure, unspecified Plan: She has been maintained on MWF HD since October s/p cardiac arrest, she had a hx of CKD 4 Her creatinine has been higher; 6.1 liters fluid removal on Friday dialysis session of 3 hrs Acute renal failure decrease UOP rising creatinine may need dialysis Friday K low KCL 16 MEQ BID Check Mg/PO4,BMP Dr. Shipman to follow (2) Anemia in chronic renal disease ICD Codes: N18.9 - Chronic kidney disease, unspecified; D63.1 - Anemia in chronic kidney disease Status: Chronic Plan: Hb improved Continue Epogen with HD Ordered 2 units PRBC Due for colonoscopy today (3) Hypertension, essential ICD Codes: I10 - Essential (primary) hypertension Status: Chronic Plan: She is on coreg Monitor blood pressure (4) Atrial flutter ICD Codes: I48.92 - Unspecified atrial flutter Plan: On dose adjusted coumadin and amiodarone (5) Hypoxia ICD Codes: R09.02 - Hypoxemia Plan: Intubated, pending extubation On Zosyn for empiric treatment of pneumonia Monitor fluid status Plan patient was seen and examined. Urine output is marginal. Dialysis today mainly for fluid removal, 6 liters removed. Monitor urine output and renal panel, electrolytes. Bryan Salazar MD Feb 09, 2017 13:58
--- NOTE | 2017-02-09 14:08 | PD.CARD.PN ---
Subjective Subjective Remarks no CV complaints extubated Objective Medications Current Medications Medications (Trade) Dose Ordered Sig/Yue Route Start Time Stop Time Status Last Admin (Narcan Inj) 0.4 mg UNSCH PRN IV PUSH 02/04/17 00:00 (Xanax) 0.25 mg Q8H PRN PO 02/04/17 00:15 Future Hold 02/05/17 04:57 (Cordarone) 200 mg DAILY PO 02/04/17 09:00 02/09/17 08:57 (Aspirin Chew) 81 mg DAILY CHEW 02/04/17 09:00 Future hold 02/09/17 08:57 (Cardizem) 60 mg QID PO 02/04/17 09:00 02/09/17 08:57 (Colace) 100 mg BID PO 02/04/17 09:00 Future Hold 02/04/17 20:40 (Duragesic 50 Mcg Patch.72 Hr) 1 patch Q72H T-DERMAL 02/04/17 01:00 02/07/17 01:28 (Miralax) 17 gm DAILY PO 02/04/17 09:00 (SEROquel) 100 mg BID PO 02/04/17 09:00 02/09/17 09:00 (Carafate) 1 gm TID PO 02/04/17 09:00 02/09/17 08:57 (Coumadin) 5 mg DAILY@1600 PO 02/04/17 16:00 Future Hold 02/04/17 16:50 Miscellaneous Information 1 Q72H T-DERMAL 02/04/17 01:00 (NS Flush) 2 ml UNSCH PRN IV FLUSH 02/04/17 01:15 (NS Flush) 2 ml BID IV FLUSH 02/04/17 09:00 02/09/17 09:00 (Tylenol) 650 mg Q6H PRN PO 02/04/17 01:15 (Morphine Inj) 2 mg Q2H PRN IV 02/04/17 01:30 02/09/17 12:28 (Zofran Inj) 4 mg Q6H PRN IV PUSH 02/04/17 01:15 (Duoneb Neb) 1 ampule Q2HR NEB PRN INH 02/04/17 01:15 Miscellaneous Information 1 Q361D XX 02/04/17 01:15 (Chlorhexidine 2% Cloth) Taper DAILY@04 TOP 02/04/17 04:00 01/31/18 03:59 02/08/17 04:00 (Chlorhexidine 2% Cloth) 3 pack UNSCH PRN TOP 02/04/17 01:15 (Jacqueline-Colace) 1 tab BID PO 02/04/17 09:00 02/08/17 20:45 (Milk Of Magnesia Liq) 30 ml Q12H PRN PO 02/04/17 01:15 (Senokot) 17.2 mg Q12H PRN PO 02/04/17 01:15 (Dulcolax Supp) 10 mg DAILY PRN RECTAL 02/04/17 01:15 (Lactulose Liq) 30 ml DAILY PRN PO 02/04/17 01:15 Pharmacy Profile Note 0 ml @ 0 mls/hr UNSCH OTHER 02/04/17 01:45 Future Hold Piperacillin Sod/ Tazobactam Sod 50 ml @ 100 mls/hr Q8H IV 02/05/17 13:00 02/09/17 03:58 (Peridex 0.12% Liq) 15 ml BID@08,20 MT 02/05/17 20:00 02/07/17 08:00 Sodium Chloride 1,000 ml @ 0 mls/hr Q0M PRN OTHER 02/05/17 10:04 02/07/17 11:00 (Heparin Inj) 8,000 units UNSCH PRN IV FLUSH 02/05/17 10:15 Sodium Chloride 1,000 ml @ 200 mls/hr Q5H PRN IV 02/05/17 10:04 02/05/17 12:59 Sodium Chloride 1,000 ml @ 0 mls/hr Q0M PRN OTHER 02/05/17 10:04 (Mannitol Inj) 12.5 gm UNSCH PRN IV 02/05/17 10:15 Albumin Human 100 ml @ 60 mls/hr UNSCH PRN IV 02/05/17 10:15 (NS Flush) 5 ml UNSCH PRN IV FLUSH 02/05/17 10:15 (Heparin Inj) UNSCH PRN .XX 02/05/17 10:15 02/07/17 11:00 (Gentamicin (Dialysis) Inj) 20 mg UNSCH PRN OTHER 02/05/17 10:15 02/07/17 11:00 (Zofran Inj) 4 mg UNSCH PRN IV PUSH 02/05/17 10:15 (Tylenol) 650 mg UNSCH PRN PO 02/05/17 10:15 02/08/17 03:01 (Benadryl) 25 mg UNSCH PRN PO 02/05/17 10:15 (Nitrostat Sl) 0.4 mg UNSCH PRN SL 02/05/17 10:15 (Catapres) 0.1 mg UNSCH PRN PO 02/05/17 10:15 (Epogen Inj) 10,000 units UNSCH PRN IV PUSH 02/05/17 10:15 02/07/17 11:00 (Gelfoam 12 Mm/7 Mm Top) 1 foam UNSCH PRN TOP 02/05/17 10:15 Azithromycin 500 mg/Sodium Chloride 250 ml @ 250 mls/hr Q24H IV 02/05/17 12:00 02/09/17 12:00 (Protonix Inj) 40 mg Q12HR IV PUSH 02/05/17 11:30 02/09/17 08:56 Midazolam HCl 100 ml @ 2 mls/hr TITRATE PRN IV 02/05/17 15:30 02/06/17 15:07 (Bumex Inj) 2 mg BID IV PUSH 02/06/17 11:06 02/09/17 08:57 (Coreg) 3.125 mg Q12HR PO 02/06/17 11:45 02/09/17 08:57 (Nitroglycerin 2% Oint) 1 inch Q6HR TOPICAL 02/06/17 14:15 02/09/17 12:28 (Duoneb Neb) 1 ampule Q6HR NEB INH 02/07/17 10:00 02/09/17 09:35 (SoluMEDROL INJ) 40 mg Q8H IV PUSH 02/07/17 12:00 02/09/17 12:28 (Apresoline) 25 mg Q8HR PO 02/08/17 09:00 02/09/17 04:48 (Trandate Inj) 20 mg Q2H PRN IV PUSH 02/09/17 05:00 02/09/17 05:52 (Catapres) 0.1 mg Q6H PRN PO 02/09/17 10:15 (KCl) 16 meq Q12HR PO 02/09/17 13:45 Vital Signs / I&O Vital Signs Date Time Temp Pulse Resp B/P (MAP) Pulse Ox O2 Delivery O2 Flow Rate FiO2 02/09/17 09:36 96 Nasal Cannula 2.00 02/09/17 08:00 98.5 78 16 178/84 93 02/09/17 04:53 20 02/09/17 04:00 98.2 94 28 207/100 (135) 93 02/09/17 00:00 98.1 75 26 162/82 (108) 89 02/08/17 20:32 92 Nasal Cannula 2.00 02/08/17 20:00 98.2 96 29 162/75 (104) 89 02/08/17 16:00 98.5 94 25 152/79 (103) 93 I/O 02/08/17 02/08/17 02/08/17 02/09/17 02/09/17 02/09/17 07:00 15:00 23:00 07:00 15:00 23:00 Intake Total 484 ml 322 ml 643 ml Output Total 175 ml 500 ml 950 ml Balance 309 ml -178 ml -307 ml Intake Oral 240 ml 120 ml 240 ml IV Total 50 ml 159 ml Tube Feeding 194 ml 102 ml 244 ml Other 100 ml Output Urine Total 175 ml 500 ml 950 ml # Bowel Movements 1 6 0 Physical Exam GENERAL: Well-nourished, well-developed patient. SKIN: Warm and dry. HEAD: Normocephalic. EYES: No scleral icterus. No injection or drainage. NECK: Supple, trachea midline. No JVD or lymphadenopathy. CARDIOVASCULAR: Regular rate and rhythm without murmurs, gallops, or rubs. RESPIRATORY: Breath sounds equal bilaterally. No accessory muscle use. GASTROINTESTINAL: Abdomen soft, non-tender, nondistended. EXTREMITIES: No cyanosis, or edema. NEUROLOGICAL: Awake, alert, and oriented x 3. Non-focal. Laboratory Laboratory Tests Test 02/09/17 05:00 Prothrombin Time 16.3 SEC Prothromb Time International Ratio 1.5 RATIO Blood Urea Nitrogen 64 MG/DL Creatinine 2.54 MG/DL Random Glucose 158 MG/DL Total Protein 6.4 GM/DL Albumin 3.4 GM/DL Calcium Level 8.3 MG/DL Alkaline Phosphatase 80 U/L Aspartate Amino Transf (AST/SGOT) 12 U/L Alanine Aminotransferase (ALT/SGPT) 20 U/L Total Bilirubin 0.6 MG/DL Sodium Level 136 MEQ/L Potassium Level 3.1 MEQ/L Chloride Level 94 MEQ/L Carbon Dioxide Level 27.8 MEQ/L Anion Gap 14 MEQ/L Estimat Glomerular Filtration Rate 18 ML/MIN Imaging Last Impressions Chest X-Ray 02/08/17 0600 Signed Impressions: Service Date/Time: Wednesday, February 08, 2017 04:28 - CONCLUSION: 1. Cardiomegaly. Resolution of the previously seen vascular congestion Paulo Salazar MD Assessment and Plan Problem List: (1) Systolic CHF ICD Codes: I50.20 - Unspecified systolic (congestive) heart failure Plan: Cont diuresis Cont supportive care Dr. Garcia to f/u in AM (2) ESRD (end stage renal disease) on dialysis ICD Codes: N18.6 - End stage renal disease; Z99.2 - Dependence on renal dialysis Status: Acute (3) Hypoxia ICD Codes: R09.02 - Hypoxemia (4) Atrial flutter ICD Codes: I48.92 - Unspecified atrial flutter Problem Qualifiers (1) Systolic CHF: Qualified Codes: I50.23 - Acute on chronic systolic (congestive) heart failure Nirmal Abarca MD Feb 09, 2017 14:08
[2017-02-09] MEDS: POTASSIUM CHLORIDE 8 MEQ CONTROLLED RELEASE TAB PO SCH ×2 (14:54→21:09)
--- NOTE | 2017-02-09 15:52 | HHI.PR ---
Subjective Remarks Patient seen today around noon. Says she is feeling all right. Says she still needs surgery again her strength. Denies any chest pain or shortness of breath. Objective Vital Signs Date Time Temp Pulse Resp B/P (MAP) Pulse Ox O2 Delivery O2 Flow Rate FiO2 02/09/17 12:33 16 02/09/17 12:00 98.4 80 19 199/95 (129) 95 02/09/17 09:36 96 Nasal Cannula 2.00 02/09/17 08:00 98.5 78 16 178/84 93 02/09/17 04:00 98.2 94 28 207/100 (135) 93 02/09/17 00:00 98.1 75 26 162/82 (108) 89 02/08/17 20:32 92 Nasal Cannula 2.00 02/08/17 20:00 98.2 96 29 162/75 (104) 89 02/08/17 16:00 98.5 94 25 152/79 (103) 93 I/O 02/08/17 02/08/17 02/08/17 02/09/17 02/09/17 02/09/17 07:00 15:00 23:00 07:00 15:00 23:00 Intake Total 484 ml 322 ml 643 ml Output Total 175 ml 500 ml 950 ml Balance 309 ml -178 ml -307 ml Intake Oral 240 ml 120 ml 240 ml IV Total 50 ml 159 ml Tube Feeding 194 ml 102 ml 244 ml Other 100 ml Output Urine Total 175 ml 500 ml 950 ml # Bowel Movements 1 6 0 Result Diagram: 02/08/17 0500 02/09/17 0500 Objective Remarks GENERAL: Patient sitting up in bed. Appears comfortable. Artery appearing. SKIN: Warm and dry. HEAD: Normocephalic. EYES: No scleral icterus. No injection or drainage. NECK: Supple, trachea midline. No JVD. CARDIOVASCULAR: Regular rate and rhythm without murmurs, gallops, or rubs. RESPIRATORY: Breath sounds equal bilaterally. No accessory muscle use. GASTROINTESTINAL: Abdomen soft, non-tender, nondistended. MUSCULOSKELETAL: No cyanosis, or edema. BACK: Nontender without obvious deformity. No CVA tenderness. A/P Assessment and Plan Patient with CHF, end-stage renal disease on hemodialysis Friday who presented with respiratory failure, acute CHF exacerbation, profound anemia with hemoglobin in the sixes. //Acute hypoxemic and hypercarbic respiratory failure-resolved //Flash pulmonary edema //COPD - Emergently intubated and placed on mechanical ventilation 02/05- extubated 01/14 after HD removed 6.1 L - IV Solu-Medrol 40 mg IV every 8 hours - DuoNeb every 4 hours scheduled and when necessary. - Sputum culture -neg. DC broad-spectrum antibiotics with Zosyn and azithromycin - change to Levaquin for 5 days = Respiratory status improving. Chest x-ray with infiltrates improved. Taper steroids. Levaquin with stop date 02/12. CVS: //Pulmonary edema most likely cardiogenic //Mild troponin elevation //History of coronary artery disease and PCI //Ischemic cardiomyopathy EF 40-45%, Mild to mod MR //History of V Fib arrest //Paroxysmal atrial fibrillation on chronic Coumadin - 2D Echo shows EF approximately 40-45% mild to mod MR - Cardiology consulted for flash pulmonary edema probably ischemic-continue conservative management - Holding aspirin and Coumadin due to anemia requiring transfusion, resume Aspirin today - s/p Emergency hemodialysis 02/05 with 2 fluid removal, HD 6.1 L removed 02/07 - Bumex 2 mg IV q12 per nephrology - Hydralazine and labetalol when necessary to keep SBP less than 150 - Continue statin, Continue amiodarone - Coreg 3.25 mg twice a day, add hydralazine 25 mg by mouth every 8 hours for blood pressure control and mitral regurgitation = 02/09. Systolic blood pressure continues elevated in the 190s. Increase hydralazine. Add isosorbide. Continue to monitor.. Switch Bumex to by mouth. GI/HEME: //Anemia requiring transfusion //History of GI bleed - s/p 2 units PRBC; keep hemoglobin more than 8 if evidence of ACS - Protonix 40 mg IV every 12 - GI consulted-EGD 02/06 showed gastritis - Continue tube feeds, evaluation by speech = 02/09. EGD/colonoscopy negative, although did show diverticulosis. Discontinue Protonix IV. Plan per gastroenterology. Suspect this is secondary to renal dysfunction. Patient probably benefit from epo. Restart warfarin and monitor. : //Chronic kidney disease stage IV - Hemodialysis per nephrology Dr. Shipman. 6.1 L removed yesterday -By mouth Bumex every 12. Urine output 1400 mL. ID: -Levaquin to complete treatment course as above. Endo: - Replace electrolytes carefully. Nephrology following. DVT GI prophylaxis - Teds SCDs. Restarted on warfarin. Discharge Planning Will need clearance from nephrology, gastroenterology, cardiology. Kvng Dunn MD Feb 09, 2017 15:52
[2017-02-09] MEDS ORDERED: ISOSORBIDE DINITRATE 40 MG SUSTAINED RELEASE TAB PO ONE (16:00)
[2017-02-09] MEDS: BUMETANIDE 1 MG TAB PO SCH (16:50)
[2017-02-09] MEDS: LEVOFLOXACIN 500 MG TAB PO SCH (16:50)
[2017-02-10] VITALS (12 sets, daily range): BP systolic 154–189; BP diastolic 72–94; PULSE 51–84; RESP 20–30; TEMP 97.2–98.7; O2SAT 91–96
[2017-02-10] MEDS: fentaNYL 50 MCG/HR PATCH T-DERMAL SCH (01:00)
[2017-02-10] MEDS: REMOVE OLD PATCH-FENTANYL T-DERMAL SCH (01:00)
[2017-02-10] MEDS: CHLORHEXIDINE GLUCONATE 2 % 1 PACK (2 CLOTHS) TOP SCH (03:20)
[2017-02-10] MEDS: RESP: ALBUTEROL 2.5 MG/IPRATROPIUM 0.5 MG NEB (SCH) INH ×4 (04:04→20:37)
[2017-02-10] MEDS: NITROGLYCERIN 2% OINT 1 GM PACKET TOPICAL SCH ×4 (06:00→17:35)
[2017-02-10] MEDS: hydrALAZINE HCL 25 MG TAB PO SCH ×3 (06:00→22:06)
[2017-02-10 06:30] LABS: INTERNATIONAL NORMALIZED RATIO 1.4 RATIO; PROTHROMBIN TIME - PATIENT 15.8 SEC (9.8-11.6)
[2017-02-10 06:44] LABS: AUTOMATED NEUTROPHIL # 4.1 TH/MM3 (1.8-7.7); BASOPHIL % 0.1 % (0.0-2.0); HEMATOCRIT 34.2 % (35.0-46.0); HEMO FLAGS DIFF FINAL; LYMPH % 4.2 % (9.0-44.0); LYMPHOCYTE # 0.2 TH/MM3 (1.0-4.8); MEAN CELL VOLUME 91.9 FL (80.0-100.0); MEAN CORPUSCULAR HGB CONC 32.7 % (32.0-36.0); MONO % 1.6 % (0.0-8.0); NEUT % 94.1 % (16.0-70.0); PLATELET COUNT 123 TH/MM3 (150-450); RED BLOOD COUNT 3.72 MIL/MM3 (4.00-5.30); RED CELL DISTRIBUTION WIDTH 17.7 % (11.6-17.2); WHITE BLOOD COUNT 4.4 TH/MM3 (4.0-11.0)
[2017-02-10 06:56] LABS: BICARBONATE 27.7 MEQ/L (21.0-32.0); MAGNESIUM 2.1 MG/DL (1.5-2.5); POTASSIUM 3.3 MEQ/L (3.5-5.1)
[2017-02-10] MEDS: DILTIAZEM HCL 60 MG TAB PO SCH ×4 (07:57→22:05)
[2017-02-10] MEDS: POTASSIUM CHLORIDE 8 MEQ CONTROLLED RELEASE TAB PO SCH ×2 (07:58→22:05)
[2017-02-10] MEDS: AMIODARONE 200 MG TAB PO SCH (07:58)
[2017-02-10] MEDS: QUEtiapine FUMARATE 100 MG TAB PO SCH ×2 (07:58→22:05)
[2017-02-10] MEDS: BUMETANIDE 1 MG TAB PO SCH ×2 (07:58→17:35)
[2017-02-10] MEDS: ASPIRIN 81 MG CHEW TAB CHEW SCH (07:59)
[2017-02-10] MEDS: SODIUM CHLORIDE 0.9% FLUSH 10 ML FLUSH IV FLUSH SCH ×2 (07:59→22:05)
[2017-02-10] MEDS: SUCRALFATE 1 GM TAB PO SCH ×3 (07:59→17:35)
[2017-02-10] MEDS: CARVEDILOL 3.125 MG TAB PO SCH ×2 (07:59→22:05)
[2017-02-10] MEDS: methylPREDNISolone SOD SUCC 125 MG/2 ML VIAL IV PUSH SCH (08:00)
[2017-02-10] MEDS: CALCITONIN SALM 200 UNIT/SPRAY 3.7 ML BTLN NASAL SCH (08:00)
[2017-02-10] MEDS: CHLORHEXIDINE 0.12% (ORAL KIT) 15 ML CUP MT SCH ×2 (08:00→20:00)
[2017-02-10] MEDS: DOCUSATE SODIUM 50 MG/SENNA 8.6 MG TAB PO SCH (08:00)
[2017-02-10] MEDS: POLYETHYLENE GLYCOL 17 GM PKG PO SCH (08:00)
--- NOTE | 2017-02-10 08:28 | HHI.GIFU ---
Subjective Remarks Awake, tolerating TF. Denies nausea, vomiting, abdominal pain, GI bleeding. (Coby Resendez) Objective Vitals I&O Vital Signs Date Time Temp Pulse Resp B/P (MAP) Pulse Ox O2 Delivery O2 Flow Rate FiO2 02/10/17 04:00 97.2 80 22 178/94 (122) 91 02/10/17 02:00 22 02/10/17 00:00 98.1 51 21 156/72 (100) 93 02/09/17 20:26 95 Nasal Cannula 3.00 02/09/17 20:00 97.6 75 25 206/95 (132) 94 02/09/17 16:00 98.2 80 25 186/86 (119) 92 02/09/17 12:33 16 02/09/17 12:00 98.4 80 19 199/95 (129) 95 02/09/17 09:36 96 Nasal Cannula 2.00 I/O 02/09/17 02/09/17 02/09/17 02/10/17 02/10/17 02/10/17 07:00 15:00 23:00 07:00 15:00 23:00 Intake Total 643 ml 968 ml 610 ml Output Total 950 ml 700 ml 600 ml Balance -307 ml 268 ml 10 ml Intake Oral 240 ml 480 ml 360 ml IV Total 159 ml 300 ml Tube Feeding 244 ml 188 ml 250 ml Output Urine Total 950 ml 700 ml 600 ml # Bowel Movements 0 5 0 Laboratory Laboratory Tests Test 02/10/17 06:00 White Blood Count 4.4 Red Blood Count 3.72 Hemoglobin 11.2 Hematocrit 34.2 Mean Corpuscular Volume 91.9 Mean Corpuscular Hemoglobin 30.0 Mean Corpuscular Hemoglobin Concent 32.7 Red Cell Distribution Width 17.7 Platelet Count 123 Mean Platelet Volume 7.5 Neutrophils (%) (Auto) 94.1 Lymphocytes (%) (Auto) 4.2 Monocytes (%) (Auto) 1.6 Eosinophils (%) (Auto) 0.0 Basophils (%) (Auto) 0.1 Neutrophils # (Auto) 4.1 Lymphocytes # (Auto) 0.2 Monocytes # (Auto) 0.1 Eosinophils # (Auto) 0.0 Basophils # (Auto) 0.0 CBC Comment DIFF FINAL Differential Comment Prothrombin Time 15.8 Prothromb Time International Ratio 1.4 Blood Urea Nitrogen 85 Creatinine 2.63 Random Glucose 171 Calcium Level 7.9 Phosphorus Level 5.4 Magnesium Level 2.1 Sodium Level 136 Potassium Level 3.3 Chloride Level 95 Carbon Dioxide Level 27.7 Anion Gap 13 Estimat Glomerular Filtration Rate 18 Date/Time Source Procedure Growth Status 02/05/17 10:50 Sputum Endotracheal Gram Stain - Final Complete 02/05/17 10:50 Sputum Endotracheal Sputum Culture - Final MODERATE GROWTH NORMAL RESPIRATORY CHIDI Complete Imaging Last Impressions Chest X-Ray 02/08/17 0600 Signed Impressions: Service Date/Time: Friday, February 08, 2017 04:28 - CONCLUSION: 1. Cardiomegaly. Resolution of the previously seen vascular congestion Paulo Salazar MD Physical Exam HEENT: Normocephalic; atraumatic; no jaundice. CHEST: CTA CARDIAC: RRR ABDOMEN: Soft, obese, nondistended, nontender; no hepatosplenomegaly; bowel sounds are present in all four quadrants.; PEG C/D/I EXTREMITIES: No clubbing or edema SKIN: Multiple ecchymotic areas COMBER OPERATOR: Alert and awake, follows commands (Coby Resendez) Assessment and Plan Plan ASSESSMENT: - Anemia with drop in Hgb. GI was consulted for possible GI bleeding, as she had a drop in Hgb from 7.6 to 6.9 on 02/05. S/P EGD/Colonoscopy (02/06/17)----> 1. The esophagus was otherwise normal 2. There was erythematous gastritis in the entire examined stomach; multiple biopsies were performed 3. Stump of the PEG in place and intact 4. Normal duodenal mucosa in the bulb and second portion of the duodenum 5. Retroflexion was performed and was normal 1. Moderate diverticulosis was noted in the sigmoid colon and descending colon 2. Large external hemorrhoids. Pathology mildly active chronic antral gastritis with focal superficial erosion, no Helicobacter pylori like organisms are present. 11.2/34.2. - Dysphagia. S/P PEG tube placement at [facility] (11/26). Tolerating TF. ST following Regular, thin liquids. - Respiratory failure. Recent prolonged hospitalization 11/14 at [facility], s/p tracheostomy/peg. Was at [facility] 11/26-01/23. Tracheostomy was decannulated prior to arrival at [place]. Halicated from [place] on 02/04 for respiratory distress, intubated early 02/05. Patient extubated . No respiratory distress. - Anticoagulation. amiodarone, cardizem. No hx of afib. ? vfib while at [place]. She came to [place] on this. Okay to resume anticoagulation from GI standpoint. - ESRD with electrolyte abnormalities, HD- had CKD, started on HD during her hospitalization at [place]. Mondays, Wednesdays, Friday. - CAD, HTN per attending. PLAN: - Renal diet with TF - Record meal percentages to see if PEG tube needed - Calorie count - Monitor HH - Transfuse if needed - Continue PPI - Supportive care - Further recommendations to follow based on results of above - Patient seen and examined by Dr. Mota and myself and this note is written on his behalf (Coby Resendez) Physician Comments Patient seen and examined Agree with above Continue with current supportive care Monitor labs Patient appears to be stable from a GI perspective therefore we will sign off Please reconsult if it is deemed that the patient no longer needs PEG tube in order to remove the PEG tube (Juan J Mota MD) Coby Resendez Feb 10, 2017 08:28 Juan J Mota MD Feb 10, 2017 18:51
[2017-02-10] MEDS ORDERED: ISOSORBIDE DINITRATE 40 MG SUSTAINED RELEASE TAB PO SCH (09:00)
--- NOTE | 2017-02-10 11:45 | HHI.NPPN ---
Subjective General Problems: Anemia Renal Failure: Chronic, Stage IV, Stage V Interval History She is awake, off oxygen, not in distress. Her urine output is adequate. (Jovanna Ramires) Review of Systems General Constitutional: Fatigue (Jovanna Ramiers) Objective Data Data Vital Signs Date Time Temp Pulse Resp B/P (MAP) Pulse Ox O2 Delivery O2 Flow Rate FiO2 02/10/17 10:00 78 02/10/17 08:02 96 Nasal Cannula 3.00 02/10/17 08:00 84 02/10/17 08:00 97.4 84 25 171/77 (108) 95 02/10/17 04:00 97.2 80 22 178/94 (122) 91 02/10/17 02:00 22 02/10/17 00:00 98.1 51 21 156/72 (100) 93 02/09/17 20:26 95 Nasal Cannula 3.00 02/09/17 20:00 97.6 75 25 206/95 (132) 94 02/09/17 16:00 98.2 80 25 186/86 (119) 92 02/09/17 12:33 16 02/09/17 12:00 98.4 80 19 199/95 (129) 95 (Jovanna Ramires) -: 02/10/17 0600 02/10/17 0600 Imaging Last 72 hours Impressions Chest X-Ray 02/08/17 0600 Signed Impressions: Service Date/Time: Wednesday, February 08, 2017 04:28 - CONCLUSION: 1. Cardiomegaly. Resolution of the previously seen vascular congestion Paulo Salazar MD Chest X-Ray 02/07/17 1200 Signed Impressions: Service Date/Time: Tuesday, February 07, 2017 13:47 - CONCLUSION: Interval improvement less interstitial edema. Jozef Chen MD FACR Tubes & Lines: Perma-Cath Tubes & Lines Comment PEG, port a cath (Jovanna Ramires) Physical Exam General Appearance: Well Developed, Well Nourished, No Acute Distress, Comfortable (Jovanna Ramires) Throat Throat Exam: Oral Mucosa [place] & Moist (Jovanna Ramires) Neck Neck Exam: Neck Supple (Jovanna Ramires) Pulmonary Resp Exam: Breath Sounds Equal, Crackles, Rhonchi, Decreased Bases (Jovanna Ramires) Cardiology CV Exam: Good Perfusion, Irregular (Jovanna Ramires) Gastrointestinal/Abdomen GI Exam: Soft, Non-Tender, Bowel Sounds Present (Jovanna Ramires) Musculoskeletal MS Exam: Joints Intact, Normal Tone (Jovanna Ramires) Integumentary Skin Exam: Clear, Warm, Dry, Intact (Jovanna Ramires) Extremeties Extremities Exam: No Edema, Pedal Pulses Palpable (Jovanna Ramires) Neurologic Neuro Exam: Alert, Awake, Oriented, Speech Clear, Moving All Extremities (Jovanna Ramires) Assessment/Plan Discussed Condition With: Patient, Spouse Assessment Summary: Anemia of CKD, Hypertension, End Stage Renal Disease Electrolyte Assessment: Hypokalemia Problem List: (1) Acute renal failure ICD Codes: N17.9 - Acute kidney failure, unspecified Plan: CKD 4, was on HD MWF since October s/p cardiac arrest She has excellent urine output Last HD was Friday for fluid removal Creatinine is higher today Hold HD today, reevaluate in AM Continue Bumex 2 mg po BID It remains to be seen if terminal system 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 s/p colonoscopy, no bleeding identified (3) Hypertension, essential ICD Codes: I10 - Essential (primary) hypertension Status: Chronic Plan: She is on coreg Monitor blood pressure (4) Atrial flutter ICD Codes: I48.92 - Unspecified atrial flutter Plan: On dose adjusted coumadin and amiodarone (5) Hypoxia ICD Codes: R09.02 - Hypoxemia Plan: extubated, off oxygen (Jovanna Ramires) Problem List: (1) Acute renal failure ICD Codes: N17.9 - Acute kidney failure, unspecified Plan: CKD 4, was on HD MWF since October s/ cardiac arrest She has excellent urine output Last HD was Friday for fluid removal Creatinine is higher today Hold HD today, reevaluate in AM Continue Bumex 2 mg po BID It remains to be seen if terminal system 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 s/p colonoscopy, no bleeding identified (3) Hypertension, essential ICD Codes: I10 - Essential (primary) hypertension Status: Chronic Plan: She is on coreg Monitor blood pressure (4) Atrial flutter ICD Codes: I48.92 - Unspecified atrial flutter Plan: On dose adjusted coumadin and amiodarone (5) Hypoxia ICD Codes: R09.02 - Hypoxemia Plan: extubated, off oxygen Plan patient was seen and examined. Non oliguric. Creatinine is slightly worse. Monitor off of dialysis. (Zoran Shipman MD) Jovanna Ramires Feb 10, 2017 11:45 Zoran Shipamn MD Feb 11, 2017 11:25
[2017-02-10] MEDS: ACETAMINOPHEN 325 MG TAB PO PRN (13:35)
[2017-02-10] MEDS: MORPHINE SULFATE 2 MG/ML INJ IV PRN ×3 (14:07→22:06)
[2017-02-10] MEDS ORDERED: ISOSORBIDE DINITRATE 40 MG SUSTAINED RELEASE TAB PO ONE (19:00)
--- NOTE | 2017-02-10 19:04 | HHI.PR ---
Subjective Remarks Patient seen today around 3:30 PM. Sitting up in chair. Appears comfortable. Denies any chest pain or shortness of breath. Objective Vital Signs Date Time Temp Pulse Resp B/P (MAP) Pulse Ox O2 Delivery O2 Flow Rate FiO2 02/10/17 17:39 15 02/10/17 16:00 75 02/10/17 16:00 97.9 75 25 180/89 (119) 92 02/10/17 14:00 78 02/10/17 12:00 81 02/10/17 12:00 98.7 81 30 189/91 (123) 94 02/10/17 10:00 78 02/10/17 08:02 96 Nasal Cannula 3.00 02/10/17 08:00 84 02/10/17 08:00 97.4 84 25 171/77 (108) 95 02/10/17 04:00 97.2 80 22 178/94 (122) 91 02/10/17 02:00 22 02/10/17 00:00 98.1 51 21 156/72 (100) 93 02/09/17 20:26 95 Nasal Cannula 3.00 02/09/17 20:00 97.6 75 25 206/95 (132) 94 I/O 02/09/17 02/09/17 02/09/17 02/10/17 02/10/17 02/10/17 07:00 15:00 23:00 07:00 15:00 23:00 Intake Total 643 ml 968 ml 610 ml Output Total 950 ml 700 ml 600 ml Balance -307 ml 268 ml 10 ml Intake Oral 240 ml 480 ml 360 ml IV Total 159 ml 300 ml Tube Feeding 244 ml 188 ml 250 ml Output Urine Total 950 ml 700 ml 600 ml # Bowel Movements 0 5 0 Result Diagram: 02/10/17 0600 02/10/17 0600 Objective Remarks GENERAL: Patient sitting up in chair at bedside. Appears comfortable.hard of hearing as before. SKIN: Warm and dry. HEAD: Normocephalic. EYES: No scleral icterus. No injection or drainage. NECK: Supple, trachea midline. No JVD. CARDIOVASCULAR: Regular rate and rhythm without murmurs, gallops, or rubs. RESPIRATORY: Breath sounds equal bilaterally. No accessory muscle use. GASTROINTESTINAL: Abdomen soft, non-tender, nondistended. PEG tube in place. No surrounding erythema. No leakage. MUSCULOSKELETAL: No cyanosis, or edema. BACK: Nontender without obvious deformity. No CVA tenderness. A/P Assessment and Plan Patient with CHF, end-stage renal disease on hemodialysis Friday who presented with respiratory failure, acute CHF exacerbation, profound anemia with hemoglobin in the sixes. //Acute hypoxemic and hypercarbic respiratory failure-resolved //Flash pulmonary edema //COPD - Emergently intubated and placed on mechanical ventilation 02/05- extubated 01/14 after HD removed 6.1 L - IV Solu-Medrol 40 mg IV every 8 hours - DuoNeb every 4 hours scheduled and when necessary. - Sputum culture -neg. DC broad-spectrum antibiotics with Zosyn and azithromycin - change to Levaquin for 5 days = Respiratory status improving. Chest x-ray with infiltrates improved. Switched to by mouth prednisone. Will need prednisone taper.. Levaquin with stop date 02/12. CVS: //Pulmonary edema most likely cardiogenic //Mild troponin elevation //History of coronary artery disease and PCI //Ischemic cardiomyopathy EF 40-45%, Mild to mod MR //History of V Fib arrest //Paroxysmal atrial fibrillation on chronic Coumadin - 2D Echo shows EF approximately 40-45% mild to mod MR - Cardiology consulted for flash pulmonary edema probably ischemic-continue conservative management - Holding aspirin and Coumadin due to anemia requiring transfusion, resume Aspirin today - s/p Emergency hemodialysis 02/05 with 2 fluid removal, HD 6.1 L removed 02/07 - Bumex 2 mg IV q12 per nephrology - Hydralazine and labetalol when necessary to keep SBP less than 150 - Continue statin, Continue amiodarone - Coreg 3.25 mg twice a day, add hydralazine 25 mg by mouth every 8 hours for blood pressure control and mitral regurgitation = 02/09. Systolic blood pressure continues elevated in the 190s. Increase hydralazine. Add isosorbide. Continue to monitor.. Switch Bumex to by mouth. = 02/10. Systolic blood pressure continues elevated. Switched to by mouth prednisone should help. We will increase hydralazine to 75 mg 3 times daily. We will increase Imdur to twice daily. Discontinue every 6 hours nitroglycerin. Clonidine continues when necessary. GI/HEME: //Anemia requiring transfusion //History of GI bleed - s/p 2 units PRBC; keep hemoglobin more than 8 if evidence of ACS - Protonix 40 mg IV every 12 - GI consulted-EGD 02/06 showed gastritis - Continue tube feeds, evaluation by speech = 02/09. EGD/colonoscopy negative, although did show diverticulosis. Discontinue Protonix IV. Plan per gastroenterology. Suspect this is secondary to renal dysfunction. Patient probably benefit from epo. Restart warfarin and monitor. = 02/10. Patient continues on warfarin. INR subtherapeutic 1.4. Allowed to trend slowly.. : //Chronic kidney disease stage IV - Hemodialysis per nephrology Dr. Shipman. -By mouth Bumex every 12. Urine output 1300 mL. ID: -Levaquin to complete treatment course as above. Endo: - Replace electrolytes carefully. Nephrology following. DVT GI prophylaxis - Teds SCDs. Restarted on warfarin. Discharge Planning possible discharge to rehabilitation in the next 2 days. -Will need clearance from nephrology, May need outpatientdialysis. -we'll need clearance from gastroenterology, cardiology. Kvng Dunn MD Feb 10, 2017 19:04
[2017-02-10] MEDS: predniSONE 20 MG TAB PO SCH (22:05)
[2017-02-11] VITALS (8 sets, daily range): BP systolic 127–170; BP diastolic 59–77; PULSE 63–84; RESP 17–20; TEMP 95.6–97.4; O2SAT 93–98
[2017-02-11] MEDS: RESP: ALBUTEROL 2.5 MG/IPRATROPIUM 0.5 MG NEB (SCH) INH ×2 (04:26→09:33)
[2017-02-11] MEDS: CHLORHEXIDINE GLUCONATE 2 % 1 PACK (2 CLOTHS) TOP SCH (06:45)
[2017-02-11] MEDS: hydrALAZINE HCL 25 MG TAB PO SCH ×4 (06:46→21:59)
[2017-02-11] MEDS: CHLORHEXIDINE 0.12% (ORAL KIT) 15 ML CUP MT SCH ×2 (08:00→20:00)
[2017-02-11] MEDS: ACETAMINOPHEN 325 MG TAB PO PRN ×3 (08:43→22:02)
[2017-02-11] MEDS: POTASSIUM CHLORIDE 8 MEQ CONTROLLED RELEASE TAB PO SCH ×2 (08:44→20:47)
[2017-02-11] MEDS: QUEtiapine FUMARATE 100 MG TAB PO SCH ×2 (08:45→21:59)
[2017-02-11] MEDS: SUCRALFATE 1 GM TAB PO SCH ×3 (08:45→17:50)
[2017-02-11] MEDS: AMIODARONE 200 MG TAB PO SCH (08:45)
[2017-02-11] MEDS: BUMETANIDE 1 MG TAB PO SCH ×2 (08:46→17:50)
[2017-02-11] MEDS: ASPIRIN 81 MG CHEW TAB CHEW SCH (08:46)
[2017-02-11] MEDS: predniSONE 20 MG TAB PO SCH (08:47)
[2017-02-11] MEDS: DILTIAZEM HCL 60 MG TAB PO SCH ×4 (08:47→20:46)
[2017-02-11] MEDS: CARVEDILOL 3.125 MG TAB PO SCH ×2 (08:47→20:46)
[2017-02-11] MEDS: CALCITONIN SALM 200 UNIT/SPRAY 3.7 ML BTLN NASAL SCH (08:48)
[2017-02-11] MEDS: POLYETHYLENE GLYCOL 17 GM PKG PO SCH (08:49)
[2017-02-11] MEDS: SODIUM CHLORIDE 0.9% FLUSH 10 ML FLUSH IV FLUSH SCH ×2 (08:49→22:17)
[2017-02-11] MEDS: ISOSORBIDE DINITRATE 40 MG SUSTAINED RELEASE TAB PO SCH ×2 (09:38→14:07)
--- NOTE | 2017-02-11 12:33 | HHI.NPPN ---
Subjective General Problems: Anemia Renal Failure: Chronic, Stage IV, Stage V Interval History She is awake, looks good. Awaiting AM lab results. Excellent urine output. (Jovanna Ramires) Review of Systems General Constitutional: Fatigue (Jovanna Ramires) Objective Data Data Vital Signs Date Time Temp Pulse Resp B/P (MAP) Pulse Ox O2 Delivery O2 Flow Rate FiO2 02/11/17 09:35 98 Nasal Cannula 3.00 02/11/17 08:00 97.4 84 20 170/77 (108) 95 02/11/17 04:00 97.0 76 17 131/70 (90) 97 02/11/17 00:00 96.2 83 18 154/70 (98) 97 02/10/17 22:00 81 02/10/17 20:37 94 Nasal Cannula 3.00 02/10/17 20:00 97.9 73 20 154/72 (99) 92 02/10/17 20:00 73 02/10/17 18:00 80 02/10/17 17:39 15 02/10/17 16:00 75 02/10/17 16:00 97.9 75 25 180/89 (119) 92 02/10/17 14:00 78 (Jovanna Ramires) -: 02/10/17 0600 02/10/17 0600 Tubes & Lines: Perma-Cath Tubes & Lines Comment PEG, port a cath (Jovanna Ramires) Physical Exam General Appearance: Well Developed, Well Nourished, No Acute Distress, Comfortable (Jovanna Ramires) Throat Throat Exam: Oral Mucosa [place] & Moist (Jovanna Ramires) Neck Neck Exam: Neck Supple (Jovanna Ramires) Pulmonary Resp Exam: Breath Sounds Equal, Crackles, Rhonchi, Decreased Bases (Jovanna Ramires) Cardiology CV Exam: Good Perfusion, Irregular (Jovanna Ramires) Gastrointestinal/Abdomen GI Exam: Soft, Non-Tender, Bowel Sounds Present (Jovanna Ramires) Musculoskeletal MS Exam: Joints Intact, Normal Tone (Jovanna Ramires) Integumentary Skin Exam: Clear, Warm, Dry, Intact (Jovanna Ramires) Extremeties Extremities Exam: No Edema, Pedal Pulses Palpable (Jovanna Ramires) Neurologic Neuro Exam: Alert, Awake, Oriented, Speech Clear, Moving All Extremities (Jovanna Ramires) Assessment/Plan Discussed Condition With: Patient, Spouse Assessment Summary: Anemia of CKD, Hypertension, End Stage Renal Disease Electrolyte Assessment: Hypokalemia Problem List: (1) Acute renal failure ICD Codes: N17.9 - Acute kidney failure, unspecified Plan: CKD 4, was on HD MWF since October s/p cardiac arrest She has excellent urine output Last HD was Friday, we held friday Todays labs in process May need HD later today Continue Bumex 2 mg po BID It remains to be seen if residential HD is needed Avoid IVF, nephrotoxins (2) Anemia in chronic renal disease ICD Codes: N18.9 - Chronic kidney disease, unspecified; D63.1 - Anemia in chronic kidney disease Status: Chronic Plan: Hb improved Continue Epogen with HD Transfused last week. s/p colonoscopy, no bleeding identified (3) Hypertension, essential ICD Codes: I10 - Essential (primary) hypertension Status: Chronic Plan: She is on coreg Monitor blood pressure (4) Atrial flutter ICD Codes: I48.92 - Unspecified atrial flutter Plan: On dose adjusted coumadin and amiodarone (5) Hypoxia ICD Codes: R09.02 - Hypoxemia Plan: extubated, off oxygen (Jovanna Ramires) Plan patient was seen and examined. Non oliguric, on Bumex, dialysis as needed. (Zoran Shipman MD) Jovanna Ramires Feb 11, 2017 12:33 Zoran Shipman MD Feb 12, 2017 10:43
[2017-02-11 12:51] LABS: CRITICAL VALUE YES
--- NOTE | 2017-02-11 15:54 | HHI.PR ---
Subjective Remarks as per RN - Peg clogged Patient states " it is my 2nd best day" Denies cp/sob. Feels mild sob. BP labile but with good control now. Objective Vitals Vital Signs Date Time Temp Pulse Resp B/P (MAP) Pulse Ox O2 Delivery O2 Flow Rate FiO2 02/11/17 12:00 96.9 78 20 141/63 (89) 95 02/11/17 09:35 98 Nasal Cannula 3.00 02/11/17 08:00 97.4 84 20 170/77 (108) 95 02/11/17 04:00 97.0 76 17 131/70 (90) 97 02/11/17 00:00 96.2 83 18 154/70 (98) 97 02/10/17 22:00 81 02/10/17 20:37 94 Nasal Cannula 3.00 02/10/17 20:00 97.9 73 20 154/72 (99) 92 02/10/17 20:00 73 02/10/17 18:00 80 02/10/17 17:39 15 02/10/17 16:00 75 02/10/17 16:00 97.9 75 25 180/89 (119) 92 I/O 02/10/17 02/10/17 02/10/17 02/11/17 02/11/17 02/11/17 07:00 15:00 23:00 07:00 15:00 23:00 Intake Total 610 ml 430 ml Output Total 600 ml 700 ml 1500 ml Balance 10 ml -700 ml -1070 ml Intake Oral 360 ml 240 ml Tube Feeding 250 ml 190 ml Output Urine Total 600 ml 700 ml 1500 ml # Bowel Movements 0 0 1 Result Diagram: 02/10/17 0602/10/17 06 Imaging Last Impressions Chest X-Ray 02/08/17599 Signed Impressions: Service Date/Time: Wednesday, February 08, 2017 04:28 - CONCLUSION: 1. Cardiomegaly. Resolution of the previously seen vascular congestion Paulo Salazar MD Objective Remarks GENERAL: Patient sitting up in chair at bedside. Appears comfortable.hard of hearing as before. No respiratory distress. SKIN: Warm and dry. HEAD: Normocephalic. EYES: No scleral icterus. No injection or drainage. NECK: Supple, trachea midline. No JVD. CARDIOVASCULAR: Regular rate and rhythm without murmurs, gallops, or rubs. RESPIRATORY: Breath sounds equal bilaterally. No accessory muscle use. GASTROINTESTINAL: Abdomen soft, non-tender, nondistended. PEG tube in place. No surrounding erythema. No leakage. MUSCULOSKELETAL: No cyanosis, or edema. BACK: Nontender without obvious deformity. No CVA tenderness. Medications and IVs Current Medications Medications (Trade) Dose Ordered Sig/Yue Route Start Time Stop Time Status Last Admin (Narcan Inj) 0.4 mg UNSCH PRN IV PUSH 02/04/17 00:00 (Xanax) 0.25 mg Q8H PRN PO 02/04/17 00:15 Future Hold 02/05/17 04:57 (Cordarone) 200 mg DAILY PO 02/04/17 09:00 02/11/17 08:45 (Aspirin Chew) 81 mg DAILY CHEW 02/04/17 09:00 Future hold 02/11/17 08:46 (Cardizem) 60 mg QID PO 02/04/17 09:00 02/11/17 14:07 (Colace) 100 mg BID PO 02/04/17 09:00 Future Hold 02/04/17 20:40 (Duragesic 50 Mcg Patch.72 Hr) 1 patch Q72H T-DERMAL 02/04/17 01:00 02/10/17 01:00 (Miralax) 17 gm DAILY PO 02/04/17 09:00 02/11/17 08:49 (SEROquel) 100 mg BID PO 02/04/17 09:00 02/11/17 08:45 (Carafate) 1 gm TID PO 02/04/17 09:00 02/11/17 14:07 (Coumadin) 5 mg DAILY@1600 PO 02/04/17 16:00 Future hold 02/04/17 16:50 Miscellaneous Information 1 Q72H T-DERMAL 02/04/17 01:00 02/10/17 01:00 (NS Flush) 2 ml UNSCH PRN IV FLUSH 02/04/17 01:15 (NS Flush) 2 ml BID IV FLUSH 02/04/17 09:00 02/11/17 08:49 (Tylenol) 650 mg Q6H PRN PO 02/04/17 01:15 02/10/17 13:35 (Morphine Inj) 2 mg Q2H PRN IV 02/04/17 01:30 02/10/17 22:06 (Zofran Inj) 4 mg Q6H PRN IV PUSH 02/04/17 01:15 (Duoneb Neb) 1 ampule Q2HR NEB PRN INH 02/04/17 01:15 Miscellaneous Information 1 Q361D XX 02/04/17 01:15 (Chlorhexidine 2% Cloth) Taper DAILY@04 TOP 02/04/17 04:00 01/31/18 03:59 02/10/17 03:20 (Chlorhexidine 2% Cloth) 3 pack UNSCH PRN TOP 02/04/17 01:15 (Milk Of Magnesia Liq) 30 ml Q12H PRN PO 02/04/17 01:15 (Senokot) 17.2 mg Q12H PRN PO 02/04/17 01:15 (Dulcolax Supp) 10 mg DAILY PRN RECTAL 02/04/17 01:15 (Lactulose Liq) 30 ml DAILY PRN PO 02/04/17 01:15 Pharmacy Profile Note 0 ml @ 0 mls/hr UNSCH OTHER 02/04/17 01:45 Future hold (Peridex 0.12% Liq) 15 ml BID@08,20 MT 02/05/17 20:00 02/07/17 08:00 Sodium Chloride 1,000 ml @ 0 mls/hr Q0M PRN OTHER 02/05/17 10:04 02/07/17 11:00 (Heparin Inj) 8,000 units UNSCH PRN IV FLUSH 02/05/17 10:15 Sodium Chloride 1,000 ml @ 200 mls/hr Q5H PRN IV 02/05/17 10:04 02/05/17 12:59 Sodium Chloride 1,000 ml @ 0 mls/hr Q0M PRN OTHER 02/05/17 10:04 (Mannitol Inj) 12.5 gm UNSCH PRN IV 02/05/17 10:15 Albumin Human 100 ml @ 60 mls/hr UNSCH PRN IV 02/05/17 10:15 (NS Flush) 5 ml UNSCH PRN IV FLUSH 02/05/17 10:15 (Heparin Inj) UNSCH PRN .XX 02/05/17 10:15 02/07/17 11:00 (Gentamicin (Dialysis) Inj) 20 mg UNSCH PRN OTHER 02/05/17 10:15 02/07/17 11:00 (Zofran Inj) 4 mg UNSCH PRN IV PUSH 02/05/17 10:15 (Tylenol) 650 mg UNSCH PRN PO 02/05/17 10:15 02/11/17 14:55 (Benadryl) 25 mg UNSCH PRN PO 02/05/17 10:15 (Nitrostat Sl) 0.4 mg UNSCH PRN SL 02/05/17 10:15 (Catapres) 0.1 mg UNSCH PRN PO 02/05/17 10:15 (Epogen Inj) 10,000 units UNSCH PRN IV PUSH 02/05/17 10:15 02/07/17 11:00 (Gelfoam 12 Mm/7 Mm Top) 1 foam UNSCH PRN TOP 02/05/17 10:15 (Coreg) 3.125 mg Q12HR PO 02/06/17 11:45 02/11/17 08:47 (Trandate Inj) 20 mg Q2H PRN IV PUSH 02/09/17 05:00 02/09/17 19:28 (Catapres) 0.1 mg Q6H PRN PO 02/09/17 10:15 (KCl) 16 meq Q12HR PO 02/09/17 13:45 02/11/17 08:44 (Levaquin) 500 mg Q48H PO 02/09/17 16:00 02/09/17 16:50 (Bumetanide) 2 mg BID@,18 PO 02/09/17 18:00 02/11/17 08:46 (Deltasone) 20 mg BID PO 02/10/17 21:00 02/11/17 08:47 (Isordil Tembids Cr) 40 mg BID@08,14 PO 02/11/17 08:00 02/11/17 14:07 (Apresoline) 75 mg Q8HR PO 02/10/17 22:00 02/11/17 14:07 Urinary Catheter: No Vascular Central Line Catheter: No A/P Assessment and Plan Patient with CHF, end-stage renal disease on hemodialysis Friday who presented with respiratory failure, acute CHF exacerbation, profound anemia with hemoglobin in the sixes. Acute hypoxemic and hypercarbic respiratory failure-resolved Flash pulmonary edema COPD - Emergently intubated and placed on mechanical ventilation 02/05- extubated 01/14 after HD removed 6.1 L - SP IV Solu-Medrol 40 mg IV every 8 hours - Continue DuoNeb every 4 hours scheduled and when necessary. - Sputum culture -neg. DC broad-spectrum antibiotics with Zosyn and azithromycin - change to Levaquin for 5 days - Respiratory status improving. Chest x-ray with infiltrates improved. Switched to by mouth prednisone. Levaquin with stop date 02/12. Pulmonary edema most likely cardiogenic - resolved Mild troponin elevation History of coronary artery disease and PCI Ischemic cardiomyopathy EF 40-45%, Mild to mod MR History of V Fib arrest Paroxysmal atrial fibrillation on chronic Coumadin - 2D Echo shows EF approximately 40-45% mild to mod MR - Cardiology consulted for flash pulmonary edema probably ischemic-continue conservative management - Held aspirin and Coumadin due to anemia requiring transfusion ---> Both resume after GI clearance, - s/p Emergency hemodialysis 02/05 with 2 fluid removal, HD 6.1 L removed 02/07 - Bumex 2 mg IV q12 per nephrology - Hydralazine and labetalol when necessary to keep SBP less than 150 - Continue statin, Continue amiodarone - 02/11 Bp labile but with overall improved control. Opinion current antihypertensive medications which include carvedilol 3.125 minutes by mouth every 12 hours, Cardizem 60 mg by mouth 4 times a day, hydralazine 75 minutes by mouth every 8 hours. Continue to monitor vital signs. Anemia requiring transfusion History of GI bleed PEG dysfunction - s/p 2 units PRBC; keep hemoglobin more than 8 if evidence of ACS - Protonix 40 mg IV every 12 - GI consulted-EGD 02/06 showed gastritis - Continue tube feeds, evaluation by speech - EGD/colonoscopy negative, although did show diverticulosis. Discontinue Protonix IV. Plan per gastroenterology. Suspect this is secondary to renal dysfunction. Patient probably benefit from epo. Restart warfarin and monitor. - 02/11 consult pharmacy to help with Coumadin dosage. Calorie count under way. If patient is having adequate input could possibly have PEG discontinued. Will discuss with GI. : Chronic kidney disease stage IV - Hemodialysis per nephrology Dr. Shipman. -By mouth Bumex every 12. Urine output 1300 mL. ID: -Levaquin to complete treatment course as above. Endo: - Replace electrolytes carefully. Nephrology following. DVT GI prophylaxis - Teds SCDs. On Warfarin. Discharge Planning Needs GI clearance. Henrik Dudley MD Feb 11, 2017 15:54
[2017-02-11] MEDS: WARFARIN SOD 5 MG TAB PO SCH (17:41)
[2017-02-11] MEDS: LEVOFLOXACIN 500 MG TAB PO SCH (17:41)
[2017-02-11 22:00] LABS: BICARBONATE 25.6 MEQ/L (21.0-32.0); POTASSIUM 3.3 MEQ/L (3.5-5.1)
[2017-02-12] VITALS: BP 130/60; PULSE 63; RESP 17; TEMP 95.2; O2SAT 92
[2017-02-12 04:00] VITALS: BP 149/72; PULSE 69; RESP 18; TEMP 95.6; O2SAT 94
[2017-02-12] MEDS: CHLORHEXIDINE GLUCONATE 2 % 1 PACK (2 CLOTHS) TOP SCH (04:00)
[2017-02-12] MEDS: hydrALAZINE HCL 25 MG TAB PO SCH (06:23)
[2017-02-12 06:59] LABS: INTERNATIONAL NORMALIZED RATIO 1.2 RATIO; PROTHROMBIN TIME - PATIENT 13.6 SEC (9.8-11.6)
[2017-02-12 07:02] LABS: AUTOMATED NEUTROPHIL # 6.2 TH/MM3 (1.8-7.7); BASOPHIL % 0.1 % (0.0-2.0); EOSINOPHIL % 0.4 % (0.0-4.0); HEMATOCRIT 35.9 % (35.0-46.0); HEMO FLAGS DIFF FINAL; LYMPH % 8.2 % (9.0-44.0); LYMPHOCYTE # 0.6 TH/MM3 (1.0-4.8); MEAN CELL VOLUME 92.8 FL (80.0-100.0); MEAN CORPUSCULAR HEMOGLOBIN 30.5 PG (27.0-34.0); MEAN CORPUSCULAR HGB CONC 32.9 % (32.0-36.0); MONO % 6.6 % (0.0-8.0); NEUT % 84.7 % (16.0-70.0); PLATELET COUNT 130 TH/MM3 (150-450); RED BLOOD COUNT 3.87 MIL/MM3 (4.00-5.30); RED CELL DISTRIBUTION WIDTH 18.4 % (11.6-17.2); WHITE BLOOD COUNT 7.3 TH/MM3 (4.0-11.0)
[2017-02-12 07:21] LABS: BICARBONATE 26.4 MEQ/L (21.0-32.0); MAGNESIUM 1.7 MG/DL (1.5-2.5); POTASSIUM 3.6 MEQ/L (3.5-5.1)
[2017-02-12 08:00] VITALS: BP 162/70; PULSE 70; RESP 17; TEMP 95.9; O2SAT 92
[2017-02-12] MEDS: CHLORHEXIDINE 0.12% (ORAL KIT) 15 ML CUP MT SCH ×2 (08:00→20:00)
[2017-02-12] MEDS: POLYETHYLENE GLYCOL 17 GM PKG PO SCH (09:00)
[2017-02-12] MEDS: BUMETANIDE 1 MG TAB PO SCH ×2 (09:39→20:56)
[2017-02-12] MEDS: SUCRALFATE 1 GM TAB PO SCH ×3 (09:39→20:55)
[2017-02-12] MEDS: ACETAMINOPHEN 325 MG TAB PO PRN ×2 (09:40→21:03)
[2017-02-12] MEDS: POTASSIUM CHLORIDE 8 MEQ CONTROLLED RELEASE TAB PO SCH ×2 (09:40→21:03)
[2017-02-12] MEDS: ISOSORBIDE DINITRATE 40 MG SUSTAINED RELEASE TAB PO SCH ×2 (09:41→12:14)
[2017-02-12] MEDS: QUEtiapine FUMARATE 100 MG TAB PO SCH ×2 (09:41→20:56)
[2017-02-12] MEDS: DILTIAZEM HCL 60 MG TAB PO SCH ×3 (09:41→20:56)
[2017-02-12] MEDS: ASPIRIN 81 MG CHEW TAB CHEW SCH (09:41)
[2017-02-12] MEDS: CARVEDILOL 3.125 MG TAB PO SCH ×2 (09:41→20:55)
[2017-02-12] MEDS: predniSONE 20 MG TAB PO SCH (09:42)
[2017-02-12] MEDS: SODIUM CHLORIDE 0.9% FLUSH 10 ML FLUSH IV FLUSH SCH ×2 (09:42→20:57)
[2017-02-12] MEDS: AMIODARONE 200 MG TAB PO SCH (09:42)
[2017-02-12] MEDS: CALCITONIN SALM 200 UNIT/SPRAY 3.7 ML BTLN NASAL SCH (09:43)
--- NOTE | 2017-02-12 11:57 | HHI.NPPN ---
Subjective General Problems: Anemia Renal Failure: Chronic, Stage IV, Stage V Interval History Sitting up, chest is clear. Renal function is worse. (Jovanna Ramires) Review of Systems General Constitutional: Fatigue (Jovanna Ramires) Objective Data Data Vital Signs Date Time Temp Pulse Resp B/P (MAP) Pulse Ox O2 Delivery O2 Flow Rate FiO2 02/12/17 08:00 95.9 70 17 162/70 (100) 92 02/12/17 04:00 95.6 69 18 149/72 (97) 94 02/12/17 00:00 95.2 63 17 130/60 (83) 92 02/11/17 22:19 93 02/11/17 20:00 95.6 63 18 154/72 (99) 96 02/11/17 16:00 96.9 67 19 127/59 (81) 95 02/11/17 12:00 96.9 78 20 141/63 (89) 95 (Jovanna Ramires) -: 02/12/17 0620 02/12/17 0620 Tubes & Lines: Perma-Cath, Albrecht Tubes & Lines Comment PEG, port a cath (Jovanna Ramires) Physical Exam General Appearance: Well Developed, Well Nourished, No Acute Distress, Comfortable (Jovanna Ramires) Throat Throat Exam: Oral Mucosa [place] & Moist (Jovanna Ramires) Neck Neck Exam: Neck Supple (Jovanna Ramires) Pulmonary Resp Exam: Breath Sounds Equal, Crackles, Rhonchi, Decreased Bases (Jovanna Ramires) Cardiology CV Exam: Good Perfusion, Irregular (Jovanna Ramires) Gastrointestinal/Abdomen GI Exam: Soft, Non-Tender, Bowel Sounds Present (Jovanna Ramires) Musculoskeletal MS Exam: Joints Intact, Normal Tone (Jovanna Ramires) Integumentary Skin Exam: Clear, Warm, Dry, Intact (Jovanna Ramires) Extremeties Extremities Exam: No Edema, Pedal Pulses Palpable (Jovanna Ramires) Neurologic Neuro Exam: Alert, Awake, Oriented, Speech Clear, Moving All Extremities (Jovanna Ramires) Assessment/Plan Discussed Condition With: Patient, Spouse Assessment Summary: Anemia of CKD, Hypertension, CKD Stage IV Electrolyte Assessment: Hypokalemia Problem List: (1) Acute renal failure ICD Codes: N17.9 - Acute kidney failure, unspecified Plan: CKD 4, was on HD MWF since October s/p cardiac arrest She has excellent urine output Renal function is worse although she made 1.5L urine We will dialyze today Reduce Bumex to once daily Repeat labs daily HD if needed on Friday It remains to be seen if intermediate HD is needed Avoid IVF, nephrotoxins High BUN may be due to steroids, taper was started today. Remove albrecht. (2) Anemia in chronic renal disease ICD Codes: N18.9 - Chronic kidney disease, unspecified; D63.1 - Anemia in chronic kidney disease Status: Chronic Plan: Hb improved Continue Epogen with HD Transfused last week. s/p colonoscopy, no bleeding identified (3) Hypertension, essential ICD Codes: I10 - Essential (primary) hypertension Status: Chronic Plan: She is on coreg Monitor blood pressure (4) Atrial flutter ICD Codes: I48.92 - Unspecified atrial flutter Plan: On dose adjusted coumadin and amiodarone (5) Hypoxia ICD Codes: R09.02 - Hypoxemia Plan: extubated, off oxygen (Jovanna Ramires) Plan patient was seen and examined. Agree with above assessment and plan. (Zoran Shipman MD) Jovanna Ramires Feb 12, 2017 11:57 Zoran Shipman MD Feb 12, 2017 21:22
[2017-02-12 12:00] VITALS: BP 121/62; PULSE 66; RESP 16; TEMP 97.4; O2SAT 97
[2017-02-12] MEDS: hydrALAZINE HCL 100 MG TAB PO SCH ×2 (12:14→22:33)
[2017-02-12] MEDS: EPOETIN ALFA 10,000 UNITS/ML VIAL IV PUSH PRN (17:40)
[2017-02-12] MEDS: GENTAMICIN SULFATE (DIALYSIS USE ONLY) 20 MG/2 ML VIAL OTHER PRN (17:40)
[2017-02-12] MEDS: HEPARIN SODIUM - IV 10,000 UNITS/10 ML VIAL PRN (17:40)
[2017-02-12 20:00] VITALS: BP 149/75; PULSE 106; RESP 20; TEMP 97.6; O2SAT 92
--- NOTE | 2017-02-12 20:13 | HHI.PR ---
Subjective Remarks Denies cp/sob. Denies fevers/chills. Objective Vitals Vital Signs Date Time Temp Pulse Resp B/P (MAP) Pulse Ox O2 Delivery O2 Flow Rate FiO2 02/12/17 12:00 97.4 66 16 121/62 (81) 97 02/12/17 08:00 95.9 70 17 162/70 (100) 92 02/12/17 04:00 95.6 69 18 149/72 (97) 94 02/12/17 00:00 95.2 63 17 130/60 (83) 92 02/11/17 22:19 93 I/O 02/11/17 02/11/17 02/11/17 02/12/17 02/12/17 02/12/17 07:00 15:00 23:00 07:00 15:00 23:00 Intake Total 430 ml 760 ml 450 ml Output Total 1500 ml 700 ml 800 ml 2400 ml Balance -1070 ml 60 ml -800 ml -1950 ml Intake Oral 240 ml 760 ml 450 ml Tube Feeding 190 ml Output Urine Total 1500 ml 700 ml 800 ml 900 ml Hemodialysis 1500 ml # Bowel Movements 1 1 0 1 Result Diagram: 02/12/17 0602/12/17 06 Imaging Last Impressions Chest X-Ray 02/08/17 06 Signed Impressions: Service Date/Time: Wednesday, February 08, 2017 04:28 - CONCLUSION: 1. Cardiomegaly. Resolution of the previously seen vascular congestion Paulo Salazar MD Objective Remarks GENERAL: Patient sitting up in chair at bedside. Appears comfortable.hard of hearing as before. No respiratory distress. SKIN: Warm and dry. HEAD: Normocephalic. EYES: No scleral icterus. No injection or drainage. NECK: Supple, trachea midline. No JVD. CARDIOVASCULAR: Regular rate and rhythm without murmurs, gallops, or rubs. RESPIRATORY: Breath sounds equal bilaterally. No accessory muscle use. GASTROINTESTINAL: Abdomen soft, non-tender, nondistended. PEG tube in place. No surrounding erythema. No leakage. MUSCULOSKELETAL: No cyanosis, or edema. BACK: Nontender without obvious deformity. No CVA tenderness. Procedures sp EGD/colonoscopy ---> Gastritis, Hemorrhoids, diverticulosis A/P Assessment and Plan Patient with CHF, end-stage renal disease on hemodialysis Friday who presented with respiratory failure, acute CHF exacerbation, profound anemia with hemoglobin in the sixes. Acute hypoxemic and hypercarbic respiratory failure-resolved Flash pulmonary edema COPD - Emergently intubated and placed on mechanical ventilation 02/05- extubated 01/14 after HD removed 6.1 L - SP IV Solu-Medrol 40 mg IV every 8 hours - Continue DuoNeb every 4 hours scheduled and when necessary. - Sputum culture -neg. DC broad-spectrum antibiotics with Zosyn and azithromycin - change to Levaquin for 5 days - Respiratory status improving. Chest x-ray with infiltrates improved. Switched to by mouth prednisone. Levaquin with stop date 02/12. Pulmonary edema most likely cardiogenic - resolved Mild troponin elevation History of coronary artery disease and PCI Ischemic cardiomyopathy EF 40-45%, Mild to mod MR History of V Fib arrest Paroxysmal atrial fibrillation on chronic Coumadin - 2D Echo shows EF approximately 40-45% mild to mod MR - Cardiology consulted for flash pulmonary edema probably ischemic-continue conservative management - Held aspirin and Coumadin due to anemia requiring transfusion ---> Both resume after GI clearance, - s/p Emergency hemodialysis 02/05 with 2 fluid removal, HD 6.1 L removed 02/07 - Bumex 2 mg IV q12 per nephrology - Hydralazine and labetalol when necessary to keep SBP less than 150 - Continue statin, Continue amiodarone - 02/11 Bp labile but with overall improved control. Continue current antihypertensive medications which include carvedilol 3.125 minutes by mouth every 12 hours, Cardizem 60 mg by mouth 4 times a day, hydralazine 75 minutes by mouth every 8 hours. Continue to monitor vital signs. - 02/12 BP elevated - Increase hydralazine 100 mg po TID. Anemia requiring transfusion History of GI bleed PEG dysfunction - s/p 2 units PRBC; keep hemoglobin more than 8 if evidence of ACS - Protonix 40 mg IV every 12 - GI consulted-EGD 02/06 showed gastritis - Continue tube feeds, evaluation by speech - EGD/colonoscopy negative, although did show diverticulosis. Discontinue Protonix IV. Plan per gastroenterology. Suspect this is secondary to renal dysfunction. Patient probably benefit from epo. Restart warfarin and monitor. - 02/11 consult pharmacy to help with Coumadin dosage. Calorie count under way. If patient is having adequate input could possibly have PEG discontinued. Will discuss with GI. : Chronic kidney disease stage IV - Hemodialysis per nephrology Dr. Shipman. -By mouth Bumex every 12. Urine output 1300 mL. ID: -Levaquin to complete treatment course as above. Endo: - Replace electrolytes carefully. Nephrology following. DVT GI prophylaxis - Teds SCDs. On Warfarin. Discharge Planning Needs GI clearance. Pending caorie count and determination to exchange or remove PEG. Henrik Dudley MD Feb 12, 2017 20:13
[2017-02-12] MEDS: WARFARIN SOD 5 MG TAB PO SCH (20:56)
[2017-02-13] VITALS: BP 126/58; PULSE 84; RESP 20; TEMP 96.7; O2SAT 94
[2017-02-13 00:44] VITALS: O2SAT 94
[2017-02-13] MEDS: RESP: ALBUTEROL 2.5 MG/IPRATROPIUM 0.5 MG NEB (PRN) INH ×2 (00:44→09:13)
[2017-02-13] MEDS: REMOVE OLD PATCH-FENTANYL T-DERMAL SCH (00:54)
[2017-02-13] MEDS: fentaNYL 50 MCG/HR PATCH T-DERMAL SCH (00:54)
[2017-02-13] MEDS: CHLORHEXIDINE GLUCONATE 2 % 1 PACK (2 CLOTHS) TOP SCH (03:44)
[2017-02-13] MEDS: hydrALAZINE HCL 100 MG TAB PO SCH ×3 (06:32→12:45)
[2017-02-13 07:04] LABS: INTERNATIONAL NORMALIZED RATIO 1.2 RATIO; PROTHROMBIN TIME - PATIENT 13.3 SEC (9.8-11.6)
[2017-02-13 07:30] VITALS: BP 146/65; PULSE 75; RESP 16; O2SAT 90
[2017-02-13 07:35] LABS: POTASSIUM 3.5 MEQ/L (3.5-5.1)
--- NOTE | 2017-02-13 07:58 | HHI.NPPN ---
Subjective General Problems: Anemia Renal Failure: Chronic, Stage IV, Stage V Interval History Had dialysis yesterday, 1500 ml removed. Patient is comfortable, non oliguric. Review of Systems General Constitutional: Fatigue Objective Data Data Vital Signs Date Time Temp Pulse Resp B/P (MAP) Pulse Ox O2 Delivery O2 Flow Rate FiO2 02/13/17 07:30 75 16 146/65 (92) 90 02/13/17 00:44 94 Nasal Cannula 2.00 02/13/17 00:00 96.7 84 20 126/58 (80) 94 02/12/17 20:54 92 Nasal Cannula 2.00 Humidified 02/12/17 20:00 97.6 106 20 149/75 (99) 92 02/12/17 12:00 97.4 66 16 121/62 (81) 97 02/12/17 08:00 95.9 70 17 162/70 (100) 92 -: 02/12/17 0620 02/13/17 0630 Tubes & Lines: Perma-Cath, [place] Tubes & Lines Comment PEG, port a cath Physical Exam General Appearance: Well Developed, Well Nourished, No Acute Distress, Comfortable Throat Throat Exam: Oral Mucosa [place] & Moist Neck Neck Exam: Neck Supple Pulmonary Resp Exam: Breath Sounds Equal, Crackles, Rhonchi, Decreased Bases Cardiology CV Exam: Good Perfusion, Irregular Gastrointestinal/Abdomen GI Exam: Soft, Non-Tender, Bowel Sounds Present Musculoskeletal MS Exam: Joints Intact, Normal Tone Integumentary Skin Exam: Clear, Warm, Dry, Intact Extremeties Extremities Exam: No Edema, Pedal Pulses Palpable Neurologic Neuro Exam: Alert, Awake, Oriented, Speech Clear, Moving All Extremities Assessment/Plan Discussed Condition With: Patient, Spouse Assessment Summary: Anemia of CKD, Hypertension, CKD Stage IV Electrolyte Assessment: Hypokalemia Problem List: (1) Acute renal failure ICD Codes: N17.9 - Acute kidney failure, unspecified Plan: CKD 4, was on HD MWF since October s/p cardiac arrest She has excellent urine output BUN/creatinine are lower today as expected after dialysis yesterday. Continue Bumex once daily. Repeat labs daily HD as needed. It remains to be seen if alf HD is needed Avoid IVF, nephrotoxins Taper down steroids. (2) Anemia in chronic renal disease ICD Codes: N18.9 - Chronic kidney disease, unspecified; D63.1 - Anemia in chronic kidney disease Status: Chronic Plan: Hb improved Continue Epogen with HD Transfused last week. s/p colonoscopy, no bleeding identified (3) Hypertension, essential ICD Codes: I10 - Essential (primary) hypertension Status: Chronic Plan: She is on coreg Monitor blood pressure (4) Atrial flutter ICD Codes: I48.92 - Unspecified atrial flutter Plan: On dose adjusted coumadin and amiodarone (5) Hypoxia ICD Codes: R09.02 - Hypoxemia Plan: extubated, off oxygen Zoran Shipman MD Feb 13, 2017 07:58
[2017-02-13] MEDS: CHLORHEXIDINE 0.12% (ORAL KIT) 15 ML CUP MT SCH (08:00)
[2017-02-13] MEDS: AMIODARONE 200 MG TAB PO SCH (08:28)
[2017-02-13] MEDS: QUEtiapine FUMARATE 100 MG TAB PO SCH (08:28)
[2017-02-13] MEDS: CALCIUM ACETATE 667 MG CAP PO SCH ×2 (08:28→12:41)
[2017-02-13] MEDS: ASPIRIN 81 MG CHEW TAB CHEW SCH (08:28)
[2017-02-13] MEDS: ISOSORBIDE DINITRATE 40 MG SUSTAINED RELEASE TAB PO SCH ×2 (08:29→12:41)
[2017-02-13] MEDS: POTASSIUM CHLORIDE 8 MEQ CONTROLLED RELEASE TAB PO SCH (08:29)
[2017-02-13] MEDS: POLYETHYLENE GLYCOL 17 GM PKG PO SCH (08:29)
[2017-02-13] MEDS: MORPHINE SULFATE 2 MG/ML INJ IV PRN (08:29)
[2017-02-13] MEDS: CARVEDILOL 3.125 MG TAB PO SCH (08:29)
[2017-02-13] MEDS: DILTIAZEM HCL 60 MG TAB PO SCH ×3 (08:29→12:43)
[2017-02-13] MEDS: predniSONE 20 MG TAB PO SCH (08:29)
[2017-02-13] MEDS: SODIUM CHLORIDE 0.9% FLUSH 10 ML FLUSH IV FLUSH SCH (08:31)
[2017-02-13] MEDS: CALCITONIN SALM 200 UNIT/SPRAY 3.7 ML BTLN NASAL SCH (08:32)
[2017-02-13] MEDS ORDERED: BUMETANIDE 1 MG TAB PO SCH (09:00)
[2017-02-13 09:13] VITALS: O2SAT 95
--- NOTE | 2017-02-13 11:15 | HHI.GIFU ---
Subjective Remarks Pt resting in bed comfortably. She reports having cereal and coffee for breakfast. Denies nausea, vomiting, abdominal pain. Did have some nausea last night but was not related to PO intake. (Coby Resendez) Objective Vitals I&O Vital Signs Date Time Temp Pulse Resp B/P (MAP) Pulse Ox O2 Delivery O2 Flow Rate FiO2 02/13/17 08:45 Nasal Cannula 3.00 Humidified 02/13/17 07:30 75 16 146/65 (92) 90 02/13/17 00:44 94 Nasal Cannula 2.00 02/13/17 00:00 96.7 84 20 126/58 (80) 94 02/12/17 20:54 92 Nasal Cannula 2.00 Humidified 02/12/17 20:00 97.6 106 20 149/75 (99) 92 02/12/17 12:00 97.4 66 16 121/62 (81) 97 I/O 02/12/17 02/12/17 02/12/17 02/13/17 02/13/17 02/13/17 07:00 15:00 23:00 07:00 15:00 23:00 Intake Total 450 ml 120 ml Output Total 800 ml 2400 ml 100 ml Balance -800 ml -1950 ml 20 ml Intake Oral 450 ml 120 ml Output Urine Total 800 ml 900 ml 100 ml Hemodialysis 1500 ml # Voids 0 # Bowel Movements 1 0 Laboratory Laboratory Tests Test 02/13/17 06:30 Prothrombin Time 13.3 Prothromb Time International Ratio 1.2 Blood Urea Nitrogen 51 Creatinine 1.93 Random Glucose 116 Albumin 3.1 Calcium Level 8.7 Phosphorus Level 3.3 Sodium Level 135 Potassium Level 3.5 Chloride Level 98 Carbon Dioxide Level 31.0 Anion Gap 6 Estimat Glomerular Filtration Rate 25 Date/Time Source Procedure Growth Status 02/05/17 10:50 Sputum Endotracheal Gram Stain - Final Complete 02/05/17 10:50 Sputum Endotracheal Sputum Culture - Final MODERATE GROWTH NORMAL RESPIRATORY CHIDI Complete Imaging Last Impressions Chest X-Ray 02/08/17 0600 Signed Impressions: Service Date/Time: Wednesday, February 08, 2017 04:28 - CONCLUSION: 1. Cardiomegaly. Resolution of the previously seen vascular congestion Paulo Salazar MD Physical Exam HEENT: Normocephalic; atraumatic; no jaundice. CHEST: CTA CARDIAC: RRR ABDOMEN: Soft, obese, nondistended, nontender; no hepatosplenomegaly; bowel sounds are present in all four quadrants.; PEG tube site without redness, scant drainage. EXTREMITIES: No clubbing or edema SKIN: Multiple ecchymotic areas J[employer] DEVELOPER: Alert and awake, follows commands (Coby Resendez) Assessment and Plan Plan ASSESSMENT: - Anemia with drop in Hgb. resolved. H+H stable, 11.8/35.9 S/P EGD/ Colonoscopy (02/06/17)----> 1. The esophagus was otherwise normal 2. There was erythematous gastritis in the entire examined stomach; multiple biopsies were performed 3. Stump of the PEG in place and intact 4. Normal duodenal mucosa in the bulb and second portion of the duodenum 5. Retroflexion was performed and was normal 1. Moderate diverticulosis was noted in the sigmoid colon and descending colon 2. Large external hemorrhoids. Pathology mildly active chronic antral gastritis with focal superficial erosion, no Helicobacter pylori like organisms are present. - Dysphagia. S/P PEG tube placement at [facility] (11/26). S/P calorie Count w/Adequate po intake. Pt averaged 60% of assessed needs for kcals and protein. Rec to discontinue TF' ing. Rec to continue Nepro Shakes TID. Plan to provid pt, per her request w/nutrition guidelines for 2gNA and Renal, stage 4. PEG tube removed without difficulty. Pt tolerated procedure. Advised to avoid PO intake for 2 hours. Site with scant drainage, no redness. - Respiratory failure. Recent prolonged hospitalization 11/14 at [facility], s/p tracheostomy/peg. Was at [facility] 11/26-01/23. Tracheostomy was decannulated prior to arrival at [facility]. Halicated from [facility] on 02/04 for respiratory distress, intubated early 02/05. Patient extubated . No respiratory distress. - Anticoagulation. amiodarone, cardizem. No hx of afib. ? vfib while at [place]. She came to [facility] on this. Okay to resume anticoagulation from GI standpoint. - ESRD with electrolyte abnormalities, HD- had CKD, started on HD during her hospitalization at [place]. Mondays, Wednesdays, Friday. - CAD, HTN per attending. PLAN: - S/P PEG tube removal - Diet as recommended by nutrition, 2gNA renal, stage 4 - Continue PPI - GI will sign off please reconsult as needed - Patient seen and examined by Dr. Mota and myself and this note is written on his behalf (Coby Resendez) Physician Comments Patient seen and examined Agree with above Continue with current supportive care Monitor labs PEG tube removed (Juan J Mota MD) Coby Resendez Feb 13, 2017 11:15 Juan J Mota MD Feb 13, 2017 18:58
[2017-02-13 11:36] VITALS: BP 133/60; PULSE 64; RESP 14; O2SAT 94
[2017-02-13 12:57] VITALS: PULSE 60; RESP 20; TEMP 98.4; O2SAT 94
[2017-02-13] MEDS ORDERED: ISOR40CR PO (13:24)
[2017-02-13] MEDS ORDERED: CARV3.125 PO (13:24)
[2017-02-13] MEDS ORDERED: BUME1TAB PO (13:24)
[2017-02-13] MEDS ORDERED: HYDR-3801 PO (13:24)
--- NOTE | 2017-02-13 13:29 | HHI.DCPOC ---
Discharge Care Plan Diagnosis: (1) H/O ventricular fibrillation (2) Paroxysmal A-fib (3) Systolic CHF (4) Dyslipidemia (5) CAD (coronary artery disease) (6) Anemia (7) Stage 4 chronic kidney disease (8) Acute kidney injury Goals to Promote Your Health * To prevent worsening of your condition and complications * To maintain your health at the optimal level Directions to Meet Your Goals Take your medications as prescribed Follow your dietary instruction Follow activity as directed Keep your appointments as scheduled Take your immunizations and boosters as scheduled If your symptoms worsen call your PCP, if no PCP go to Urgent Care Center or Emergency Room Smoking is Dangerous to Your Health. Avoid second hand smoke Call the 24-hour hour crisis hotline for domestic abuse at Henrik Dudley MD Feb 13, 2017 13:29
--- NOTE | 2017-02-13 13:31 | HHI.DS ---
Discharge Summary Admission Date Feb 03, 2017 at 23:25 Discharge Date: Feb 13, 2017 Admitting Diagnosis Procedures sp EGD/colonoscopy ---> Gastritis, Hemorrhoids, diverticulosis Brief History - From Admission 76-year-old female admitted to [facility] medicine services for rehabilitation management after prolonged hospitalization at [facility]. She was admitted to [facility] with acute coronary syndrome, status post stent placement in October last year. The patient was admitted with shortness of breath active chest pain and went into V. fib cardiopulmonary arrest. At that time her potassium was 7.8 and patient underwent emergent hemodialysis. Hospital course was complicated with sepsis ESBL, respiratory failure requiring tracheostomy, PEG care for tube feedings and hemodialysis Wednesdays. Patient had a Vas-Cath placed on the left for dialysis and the port placed on the right. Patient was successfully decannulated and transferred to [facility] for further rehabilitation off deconditioning. 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 Last night, shortly after her hemodialysis, patient developed respiratory distress hypoxemia at 80s. She was immediately placed on BiPAP with improvement in oxygenation and respiratory condition and is admitted to ICU under critical care service. CBC/BMP: 02/12/17 0620 02/13/17 0630 Significant Findings Laboratory Tests Test 02/11/17 20:42 02/12/17 06:20 02/13/17 06:30 Blood Urea Nitrogen 112 MG/DL (7-18) 115 MG/DL (7-18) 51 MG/DL (7-18) Creatinine 3.12 MG/DL (0.50-1.00) 3.19 MG/DL (0.50-1.00) 1.93 MG/DL (0.50-1.00) Random Glucose 207 MG/DL (74-106) 116 MG/DL (74-106) Calcium Level 8.3 MG/DL (8.5-10.1) 8.3 MG/DL (8.5-10.1) Phosphorus Level 5.0 MG/DL (2.5-4.9) 5.1 MG/DL (2.5-4.9) Sodium Level 132 MEQ/L (136-145) 132 MEQ/L (136-145) 135 MEQ/L (136-145) Potassium Level 3.3 MEQ/L (3.5-5.1) Chloride Level 92 MEQ/L (98-107) 95 MEQ/L (98-107) Estimat Glomerular Filtration Rate 15 ML/MIN (>89) 14 ML/MIN (>89) 25 ML/MIN (>89) Red Blood Count 3.87 MIL/MM3 (4.00-5.30) Red Cell Distribution Width 18.4 % (11.6-17.2) Platelet Count 130 TH/MM3 (150-450) Neutrophils (%) (Auto) 84.7 % (16.0-70.0) Lymphocytes (%) (Auto) 8.2 % (9.0-44.0) Lymphocytes # (Auto) 0.6 TH/MM3 (1.0-4.8) Prothrombin Time 13.6 SEC (9.8-11.6) 13.3 SEC (9.8-11.6) Albumin 3.2 GM/DL (3.4-5.0) 3.1 GM/DL (3.4-5.0) PE at Discharge GENERAL: Patient sitting up in chair at bedside. Appears comfortable.hard of hearing as before. No respiratory distress. SKIN: Warm and dry. HEAD: Normocephalic. EYES: No scleral icterus. No injection or drainage. NECK: Supple, trachea midline. No JVD. CARDIOVASCULAR: Regular rate and rhythm without murmurs, gallops, or rubs. RESPIRATORY: Breath sounds equal bilaterally. No accessory muscle use. GASTROINTESTINAL: Abdomen soft, non-tender, nondistended. PEG tube in place. No surrounding erythema. No leakage. MUSCULOSKELETAL: No cyanosis, or edema. BACK: Nontender without obvious deformity. No CVA tenderness. Pt Condition on Discharge: Stable Discharge Disposition: Rehab Inpatient Discharge Instructions DIET: Follow Instructions for: Renal Failure Diet Activities you can perform: See Additionl Instruction Other Activity Instructions: Per PT Henrik Dudley MD Feb 13, 2017 13:31
[2017-02-13] MEDS ORDERED: WARFARIN SOD 2.5 MG TAB PO ONE (16:00)
== END 2017-02-13 14:56 | DRG 208 ==
LOC: HIMN 23:25 → N07B 02-10 23:31
PROVIDERS: ADMIT Hospitalist; ATTEND Hospitalist
PROC: 5A09457 Assistance with Respiratory Ventilation, 24-96 Consecutive Hours, Continuous Positive Airway Pressure (ICD-10-PCS; 2017-02-03)
PROC: 5A1945Z Respiratory Ventilation, 24-96 Consecutive Hours (ICD-10-PCS; principal; 2017-02-05)
PROC: 0BH17EZ Insertion of Endotracheal Airway into Trachea, Via Natural or Artificial Opening (ICD-10-PCS; 2017-02-05)
PROC: 5A1D70Z Performance of Urinary Filtration, Intermittent, Less than 6 Hours Per Day (ICD-10-PCS; 2017-02-05)
PROC: 30233N1 Transfusion of Nonautologous Red Blood Cells into Peripheral Vein, Percutaneous Approach (ICD-10-PCS; 2017-02-05)
PROC: 0DJD8ZZ Inspection of Lower Intestinal Tract, Via Natural or Artificial Opening Endoscopic (ICD-10-PCS; 2017-02-06)
PROC: 0DB68ZX Excision of Stomach, Via Natural or Artificial Opening Endoscopic, Diagnostic (ICD-10-PCS; 2017-02-06)
DX: J96.90 Respiratory failure, unspecified, unspecified whether with hypoxia or hypercapnia (principal); G93.1 Anoxic brain damage, not elsewhere classified; J18.9 Pneumonia, unspecified organism; N17.9 Acute kidney failure, unspecified; I50.23 Acute on chronic systolic (congestive) heart failure; N18.6 End stage renal disease; I48.0 Paroxysmal atrial fibrillation; Z86.74 Personal history of sudden cardiac arrest; J44.0 Chronic obstructive pulmonary disease with (acute) lower respiratory infection; J44.1 Chronic obstructive pulmonary disease with (acute) exacerbation; K94.23 Gastrostomy malfunction; I13.2 Hypertensive heart and chronic kidney disease with heart failure and with stage 5 chronic kidney disease, or end stage renal disease; J96.01 Acute respiratory failure with hypoxia; J96.02 Acute respiratory failure with hypercapnia; D63.1 Anemia in chronic kidney disease; Z99.2 Dependence on renal dialysis; I25.10 Atherosclerotic heart disease of native coronary artery without angina pectoris; Z95.5 Presence of coronary angioplasty implant and graft; Z87.891 Personal history of nicotine dependence; Y95 Nosocomial condition; Z79.01 Long term (current) use of anticoagulants; I25.5 Ischemic cardiomyopathy; E78.5 Hyperlipidemia, unspecified; K21.9 Gastro-esophageal reflux disease without esophagitis; G89.29 Other chronic pain; R26.9 Unspecified abnormalities of gait and mobility; I25.2 Old myocardial infarction; R74.8 Abnormal levels of other serum enzymes; E87.6 Hypokalemia; K64.8 Other hemorrhoids; K57.30 Diverticulosis of large intestine without perforation or abscess without bleeding; K64.4 Residual hemorrhoidal skin tags; K29.60 Other gastritis without bleeding; Z23 Encounter for immunization
CPT/HCPCS: 31500; 36430; 36600; 71010; 76937; 80048; 80053; 80069; 82805; 83605; 83735; 83880; 84100; 84484; 85014; 85018; 85025; 85610; 86850; 86900; 86901; 86920; 87070; 87205; 87641; 88305; 88312; 90686; 90935; 93005; 93306; 94002; 94003; 94150; 94640; 96374; 96375; C9113; J0456; J1580; J1644; J1940; J2060; J2250; J2270; J2405; J2543; J2930; J7030; J7050; J7512; P9016; Q2038; Q4081

== ENCOUNTER 2017-02-27 20:07 | Inpatient (IN) | payer MEDICARE, OTHER ==
[~2017-02-27] VITALS: Ht 161.3 cm; Wt 61.6 kg
[2017-02-27 20:07] VITALS: BP 144/73; PULSE 81; RESP 20; TEMP 98; O2SAT 93
[~2017-02-27 20:07] MED LIST changes: +ALPR.25 PO; -ALPR0.5T3 PO; +ASPI81 CHEW; +BUME1TAB PO; +CARV12.5 PO; +CARV3.125 PO; -CHLO.12%30 SWISH-SPIT; -COUM10TA PO; +COUM5TAB PO; +DILT31TA PO; +FAMO20TA2 PO; -FAMO40TA PO; +GETGO ROLLING W1 MI1; +HYDR-3801 PO; +ISOR40CR PO; +KLOR10TA PO; +MAGN400T2 PO; -METO10TA PO
[2017-02-27 20:43] VITALS: PULSE 77
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
[2017-02-27 21:00] VITALS: PULSE 78
[2017-02-27] MEDS ORDERED: NALOXONE HCL 0.4 MG/ML AMP IV PUSH PRN (21:30)
[2017-02-27] MEDS ORDERED: SODIUM CHLORIDE 0.9% FLUSH 10 ML FLUSH IV FLUSH PRN (21:30)
[2017-02-27] MEDS ORDERED: HEPARIN-D5W 25,000 U/250 ML 250 ML IV PRN (21:45)
[2017-02-27 22:00] VITALS: PULSE 68
[2017-02-27] MEDS: hydrALAZINE HCL 100 MG TAB PO SCH (22:00)
[2017-02-27] MEDS ORDERED: HEPARIN SODIUM - IV 10,000 UNITS/10 ML VIAL IV PUSH PRN (22:30)
[2017-02-27] MEDS: HEPARIN 25,000 UNITS-D5W 250 ML - PREMIX IV PRN (22:38)
[2017-02-27 23:00] VITALS: PULSE 52
[2017-02-27] MEDS ORDERED: ACETAMINOPHEN 325 MG TAB PO ONE (23:15)
--- NOTE | 2017-02-27 23:18 | HHI.HP ---
[facility] Service [facility] Primary Care Physician Naeem Monteiro M.D. Admission Diagnosis NSTEMI . Diagnoses: (1) NSTEMI (non-ST elevated myocardial infarction) Chief Complaint: pain under right arm Travel History International Travel<30 Days: No Contact w/Intl Traveler <30 Da: No History of Present Illness Mrs. Buckley is a 76 y/o female with a history of renal failure requiring HD about 3 weeks ago, CAD s/p cardiac stents x 4, systolic CHF, hypertension, chronic anemia, chronic lower back pain secondary to spinal stenosis, and hyperkalemia with potassium of 7.8 leading to ventricular fibrillation CP arrest with admission to [facility] on 11/14/16. She was placed on a ventilator and developed sepsis and pneumonia complications. She was discharged with trach and PEG to [facility] in [place] on . The patient was transferred to [facility] on 01/23/17 following trach decannulation. She was transferred to [facility] for hypoxic respiratory distress 02/03/17 and required intubation. Panendoscopy and Colonoscopy were done for hgb 6.9 with findings of gastritis, diverticulosis, and 2 large external hemorrhoids. Her breathing improved and she was extubated, PEG was removed as she was nutritionally improving, she began to make urine and was sent back to [facility] on 02/13/17. She has been suffering from residual anoxic encephalopathy and is a poor historian as a result. On 02/27/17, she was anticipating discharge from [place] as she had met her goals. She reports an increase in anxiety leading to palpitations and pain under right and left arms that would not go away (states she's had these pains intermittently but they always spontaneously resolve). She reported chest pain to the hospitalist according to their notes. She was also having some left sided chest pain related to Vas cath removal. She indicates she has not required dialysis for 3 weeks. The patient relates her symptoms to anxiety. Denies shortness of breath with ambulation, nausea, vomiting, diaphoresis, diarrhea, black or red stool, dysuria, hematuria, dizziness, or syncope. 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 Montaño in [place]. She reports that in October, she had an abnormal nuclear stress test and was told that one of her arteries was "clogged". At that time, according to the patient, her tutoring clinician would not perform a cardiac catheterization due to poor renal function. Review of Systems Except as stated in HPI: all other systems reviewed are Neg Past Family Social History Past Medical History CKD stage 4 with renal failure requiring HD about 3 weeks ago (complete renal failure resolved now) CAD s/p cardiac stents x 4 in 2001 and 2003 Systolic CHF with EF 40 - 45% Hypertension Chronic anemia related to chronic illness Chronic lower back pain secondary to spinal stenosis - implanted pain pump - MSO4 Hyperkalemia with potassium of 7.8 leading to ventricular fibrillation CP arrest V-fib arrest Flash pulmonary edema Hypoxic hypercapnic respiratory failure Atrial fibrillation, paroxysmal Gastritis External hemorrhoids Past Surgical History Implanted morphine pain pump for spinal stenosis Cardiac stents 4 in 2001 in 2003 Cholecystectomy Tracheostomy with subsequent reversal PEG tube placement with subsequent removal Right cochlear implant Vascath placement Port placement Colonoscopy and EGD . Reported Medications Reported Meds & Active Scripts Active Magnesium Oxide 400 Mg Tab 400 Mg PO BID Bumetanide 1 Mg Tab 1 Mg PO DAILY Klor-Con 10 (Potassium Chloride) 10 Meq Tab 10 Meq PO Q12HR Tgt Aspirin (Aspirin) 81 Mg Chw 81 Mg CHEW DAILY Cardizem (Diltiazem HCl) 30 Mg Tab 30 Mg PO Q6HR Coreg (Carvedilol) 12.5 Mg Tab 12.5 Mg PO Q12HR Isosorbide Dinitrate ER (Isosorbide Dinitrate) 40 Mg Cheryl 40 Mg PO BID@08,14 Hydralazine (Hydralazine HCl) 100 Mg Tab 100 Mg PO Q8HR Take with meals Xanax (Alprazolam) 0.25 Mg Tab 0.25 Mg PO Q8H PRN Quetiapine (Quetiapine Fumarate) 100 Mg Tab 100 Mg PO BID Fentanyl Patch 72 HR (Fentanyl) 50 Mcg/Hr Patch 50 Mcg T-DERMAL Q72H Remove old patch when new one placed. Docusate Sodium 100 Mg Cap 100 Mg PO BID Amiodarone (Amiodarone HCl) 200 Mg Tab 200 Mg PO DAILY Walker Rolling/GetGo (Device) 1 Mis Mis Ea .ROUTE DIRECTED Coumadin (Warfarin) 5 Mg Tab 5 Mg PO DAILY@1600 [Metoclopramide Liq] 10 MG/10 ML Syrp 5 Mg PO QID Commode With Arms (Device) 1 Mis Mis Ea .ROUTE DIRECTED Wheelchair (Device) 1 Mis Mis Ea .ROUTE DIRECTED Hospital Bed - Electric 1 Ea Ea Ea .ROUTE DIRECTED Reported Sucralfate 1 Gram Tab 1 Gm PO TID on empty stomach Miralax Powder (Polyethylene Glycol 3350 Powder) 17 Gm Powd 17 Gm PO DAILY Mix and dissolve one measuring cap-ful (17 grams) in water or juice. Calcitonin ([place]) Nasal [place] (Calcitonin [place]) 200 Units/Act Soln 1 [place] NASAL DAILY Alternate nostrils daily. Bisacodyl Supp (Bisacodyl) 10 Mg Supp 10 Mg RECTAL DAILY PRN Tylenol (Acetaminophen) 325 Mg Tab 325 Mg PO Q6H PRN . Allergies: Coded Allergies: shellfish derived (Unverified Allergy, Unknown, 11/12/16) Active Ordered Medications Current Medications Sodium Chloride (NS Flush) 2 ml UNSCH PRN IV FLUSH FLUSH AFTER USING IV ACCESS ; Start 02/27/17 at 21:30 Sodium Chloride (NS Flush) 2 ml BID IV FLUSH ; Start 02/28/17 at 09:00 Naloxone HCl (Narcan Inj) 0.4 mg UNSCH PRN IV PUSH SEE LABEL COMMENTS; Start 02/27/17 at 21:30 Heparin Sodium (Porcine) (Heparin Inj) 5,000 units UNSCH PRN IV PUSH APTT LESS THAN 25; Start 02/28/17 at 03:45; Status UNV Heparin Sodium (Porcine) (Heparin Inj) 2,500 units UNSCH PRN IV PUSH APTT 25 TO 39; Start 02/28/17 at 03:45; Status UNV Heparin Sodium/ Dextrose 250 ml @ 0 mls/hr TITRATE PRN IV Coagulation Management; Start 02/27/17 at 21:45; Status UNV Alprazolam (Xanax) 0.25 mg Q8H PRN PO ANXIETY; Start 02/27/17 at 21:45 Amiodarone HCl (Cordarone) 200 mg DAILY PO ; Start 02/28/17 at 09:00 Aspirin (Aspirin Chew) 81 mg DAILY CHEW ; Start 02/28/17 at 09:00 Bumetanide (Bumetanide) 1 mg DAILY PO ; Start 02/28/17 at 09:00 Carvedilol (Coreg) 12.5 mg Q12HR PO ; Start 02/28/17 at 09:00 Diltiazem HCl (Cardizem) 30 mg Q6HR PO ; Start 02/28/17 at 00:00 Docusate Sodium (Colace) 100 mg BID PO ; Start 02/28/17 at 09:00 Fentanyl (Duragesic 50 Mcg Patch.72 Hr) 1 patch Q72H T-DERMAL ; Start 02/28/17 at 21:45 Hydralazine HCl (Apresoline) 100 mg Q8HR PO ; Start 02/27/17 at 22:00 Isosorbide Dinitrate (Isordil Tembids Cr) 40 mg BID@08,14 PO ; Start 02/28/17 at 08:00 Potassium Chloride (KCl) 10 meq Q12HR PO ; Start 02/28/17 at 09:00 Quetiapine Fumarate (SEROquel) 100 mg BID PO ; Start 02/28/17 at 09:00 . Family History Mother and father both from CVA Grandmother with ME . Social History Tobacco: Remote history of smoking while in college - about 50 years ago Alcohol: No alcohol in the past 19 years, prior to that was a heavy drinker Illicit Drugs: Denies . Physical Exam Physical Exam GENERAL: This is a well-nourished, well-developed patient, in no apparent distress. SKIN: No rashes. Cool and dry. Multiple areas of ecchymosis noted on bilateral upper extremities. Left hand with 2+ edema noted. HEAD: Atraumatic. Normocephalic. EYES: No scleral icterus. No injection or drainage. ENT: Nose without bleeding, purulent drainage. NECK: Trachea midline. No JVD. CARDIOVASCULAR: Regular rate and rhythm 3/6 systolic murmur. 1+ edema to bilateral lower extremities. RESPIRATORY: Clear to auscultation. Breath sounds equal bilaterally. No wheezes , rales, or rhonchi. GASTROINTESTINAL: Abdomen soft, non-tender, nondistended. No guarding. MUSCULOSKELETAL: Extremities without clubbing, cyanosis, or edema. No calf tenderness. NEUROLOGICAL: Awake and alert. Motor and sensory grossly within normal limits. Normal speech. Patient has some obvious memory impairment. . Caprini VTE Risk Assessment Caprini VTE Risk Assessment: Mod/High Risk (score >= 2) Caprini Risk Assessment Model Point Value = 1 Point Value = 2 Point Value = 3 Point Value = 5 Age 41-60 Minor surgery BMI > 25 kg/m2 Swollen legs Varicose veins or History of unexplained or recurrent spontaneous Oral contraceptives or hormone replacement Sepsis (< 1 month) Serious lung disease, including pneumonia (< 1 month) Abnormal pulmonary function Acute myocardial infarction Congestive heart failure (< 1 month) History of inflammatory bowel disease Medical patient at bed rest Age 61-74 Arthroscopic surgery Major open surgery (> 45 min) Laparoscopic surgery (> 45 min) Malignancy Confined to bed (> 72 hours) Immobilizing plaster cast Central venous access Age >= 75 History of VTE Family history of VTE Factor V Leiden Prothrombin [id number] Lupus anticoagulant Anticardiolipin antibodies Elevated serum homocysteine Heparin-induced thrombocytopenia Other congenital or acquired thrombophilia Stroke (< 1 month) Elective arthroplasty Hip, pelvis, or leg fracture Acute spinal cord injury (< 1 month) Prophylaxis Regimen Total Risk Factor Score Risk Level Prophylaxis Regimen 0-1 Low Early ambulation 2 Moderate Order ONE of the following: *Sequential Compression Device (SCD) *Heparin 5000 units SQ BID 3-4 Higher Order ONE of the following medications: *Heparin 5000 units SQ TID *Enoxaparin/Lovenox 40 mg SQ daily (WT < 150 kg, CrCl > 30 mL/min) *Enoxaparin/Lovenox 30 mg SQ daily (WT < 150 kg, CrCl > 10-29 mL/min) *Enoxaparin/Lovenox 30 mg SQ BID (WT < 150 kg, CrCl > 30 mL/min) AND/OR *Sequential Compression Device (SCD) 5 or more Highest Order ONE of the following medications: *Heparin 5000 units SQ TID (Preferred with Epidurals) *Enoxaparin/Lovenox 40 mg SQ daily (WT < 150 kg, CrCl > 30 mL/min) *Enoxaparin/Lovenox 30 mg SQ daily (WT < 150 kg, CrCl > 10-29 mL/min) *Enoxaparin/Lovenox 30 mg SQ BID (WT < 150 kg, CrCl > 30 mL/min) AND *Sequential Compression Device (SCD) Assessment and Plan Problem List: (1) NSTEMI (non-ST elevated myocardial infarction) ICD Code: I21.4 - Non-ST elevation (NSTEMI) myocardial infarction (2) Systolic CHF ICD Code: I50.20 - Unspecified systolic (congestive) heart failure (3) H/O ventricular fibrillation ICD Code: Z86.79 - Personal history of other diseases of the circulatory system (4) Paroxysmal A-fib ICD Code: I48.0 - Paroxysmal atrial fibrillation (5) Anemia ICD Code: D64.9 - Anemia, unspecified (6) CAD (coronary artery disease) ICD Code: I25.10 - Atherosclerotic heart disease of [place] coronary artery without angina pectoris (7) Chronic back pain ICD Code: M54.9 - Dorsalgia, unspecified; G89.29 - Other chronic pain Status: Chronic (8) History of ventilator dependency ICD Code: Z99.11 - Dependence on respirator [ventilator] status Status: Resolved (9) Hx of respiratory failure ICD Code: Z87.09 - Personal history of other diseases of the respiratory system Status: Resolved (10) Stage 4 chronic kidney disease ICD Code: N18.4 - Chronic kidney disease, stage 4 (severe) Assessment and Plan The exam, history, and the medical decision-making described in the above note were completed with the assistance of the mid-level provider. I reviewed and agree with the findings presented. I attest that I had a [id number] encounter with the patient on the same day, and personally performed and documented my assessment and findings in the medical record. Discussed Condition With Patient and RN . Physician Certification 2 Midnight Certification Type: Admission for Inpatient Services Order for Inpatient Services The services are ordered in accordance with Medicare regulations or non- Medicare payer requirements, as applicable. In the case of services not specified as inpatient-only, they are appropriately provided as inpatient services in accordance with the 2-midnight benchmark. Estimated LOS (days): 4 days is the estimated time the patient will need to remain in the hospital, assuming treatment plan goals are met and no additional complications. Post-Hospital Plan: Not yet determined Problem Qualifiers (1) Anemia: Varsha Weems Feb 27, 2017 23:15 Wero Ko MD Feb 28, 2017 09:00
[2017-02-27] MEDS: DILTIAZEM HCL 30 MG TAB PO SCH (23:26)
[2017-02-28] VITALS (24 sets, daily range): BP systolic 125–166; BP diastolic 59–89; PULSE 40–98; RESP 16–31; TEMP 97.6–98.3; O2SAT 95–100
[2017-02-28] MEDS: ALPRAZolam 0.25 MG TAB PO PRN (01:14)
[2017-02-28] MEDS ORDERED: HEPARIN SODIUM - IV 10,000 UNITS/10 ML VIAL IV PUSH PRN ×2 (03:45)
[2017-02-28] MEDS: hydrALAZINE HCL 100 MG TAB PO SCH ×3 (06:00→20:35)
[2017-02-28 06:38] LABS: AUTOMATED NEUTROPHIL # 3.4 TH/MM3 (1.8-7.7); BASOPHIL # 0.1 TH/MM3 (0-0.2); BASOPHIL % 1.2 % (0.0-2.0); EOSINOPHIL # 0.1 TH/MM3 (0-0.4); HEMATOCRIT 24.4 % (35.0-46.0); LYMPH % 19.1 % (9.0-44.0); LYMPHOCYTE # 0.9 TH/MM3 (1.0-4.8); MEAN CELL VOLUME 93.4 FL (80.0-100.0); MEAN CORPUSCULAR HEMOGLOBIN 30.5 PG (27.0-34.0); MEAN CORPUSCULAR HGB CONC 32.7 % (32.0-36.0); MONO % 6.5 % (0.0-8.0); NEUT % 70.2 % (16.0-70.0); PLATELET COUNT 88 TH/MM3 (150-450); RED BLOOD COUNT 2.61 MIL/MM3 (4.00-5.30); RED CELL DISTRIBUTION WIDTH 19.2 % (11.6-17.2); WHITE BLOOD COUNT 4.8 TH/MM3 (4.0-11.0)
[2017-02-28 06:58] LABS: BICARBONATE 24.8 MEQ/L (21.0-32.0); POTASSIUM 4.5 MEQ/L (3.5-5.1)
[2017-02-28] MEDS: DILTIAZEM HCL 30 MG TAB PO SCH (07:00)
[2017-02-28] MEDS: ISOSORBIDE DINITRATE 40 MG SUSTAINED RELEASE TAB PO SCH ×2 (07:01→14:00)
[2017-02-28 07:04] LABS: HEMO FLAGS AUTO DIFF
[2017-02-28 08:14] LABS: INTERNATIONAL NORMALIZED RATIO 3.4 RATIO; PROTHROMBIN TIME - PATIENT 34.6 SEC (9.8-11.6)
[2017-02-28 08:17] LABS: APTT (PATIENT) GREATER THAN 277.5 SEC (24.3-30.1)
[2017-02-28 08:56] LABS: HELMET CELLS OCC (NORMAL); PLATELET ESTIMATE SMEAR LOW (NORMAL); PLATELET MORPHOLOGY ENLARGED (NORMAL); SCAN/DIFF AUTO DIFF CONFIRMED
[2017-02-28] MEDS ORDERED: DOCUSATE SODIUM 100 MG CAP PO SCH (09:00)
[2017-02-28] MEDS ORDERED: CARVEDILOL 12.5 MG TAB PO SCH (09:00)
[2017-02-28] MEDS ORDERED: POTASSIUM CHLORIDE 10 MEQ CONTROLLED RELEASE TAB PO SCH (09:00)
[2017-02-28] MEDS: SODIUM CHLORIDE 0.9% FLUSH 10 ML FLUSH IV FLUSH SCH ×2 (09:00→20:35)
[2017-02-28] MEDS ORDERED: ACETAMINOPHEN 325 MG TAB PO ONE (09:45)
[2017-02-28] MEDS: QUEtiapine FUMARATE 100 MG TAB PO SCH ×2 (10:10→20:35)
[2017-02-28] MEDS: BUMETANIDE 1 MG TAB PO SCH (10:10)
[2017-02-28] MEDS: PANTOPRAZOLE SOD 40 MG DELAYED RELEASE TAB PO SCH (10:11)
[2017-02-28] MEDS: ASPIRIN 81 MG CHEW TAB CHEW SCH (10:11)
[2017-02-28] MEDS: AMIODARONE 200 MG TAB PO SCH (10:11)
--- NOTE | 2017-02-28 10:26 | PD.CONS ---
HPI Service Nephrology Consult Requested By Maikel Reason for Consult CKD Primary Care Physician Naeem Monteiro M.D. History of Present Illness This is a 76 y/o female with a PMH that includes A fib/flutter on chronic Coumadin, HTN, hyperlipidemia, CAD/ischemic cardiomyopathy. She also has CKD 4. In October she was seen in [place] [facility] with acute hyperkalemia and suffered cardiac arrest. She did survive, was on the ventilator for prolonged period with a trach, eventually weened off the vent and trach, and transferred to [facility] and later to [facility]. The patient had to be dialyzed emergently in October due to hyperkalemia. She was on HD until 02/12. Her creatinine has stabilized at 2.5. The Permcath was removed yesterday, the plan was to be discharged and follow up in CKD clinic on of next week. However, she developed right should pain that was very tender to palpation , it seemed to develop after heavy PT, seemed anxious as well. She was admitted to [facility] for NSTEMI, started on heparin gtt. There is discussion about cardiac catheterization today. She is having sinus headache. Minimal edema. Her renal function is at baseline. (Jovanna Ramires) Review of Systems Constitutional: DENIES: Fatigue Respiratory: COMPLAINS OF: Shortness of breath Cardiovascular: COMPLAINS OF: Chest pain, DENIES: Palpitations Psychiatric: COMPLAINS OF: Anxiety, DENIES: Confusion, Depression (Jovanna Ramires) Past Family Social History Allergies: Coded Allergies: shellfish derived (Unverified Allergy, Unknown, 11/12/16) Past Medical History Acute on CKD 4, off HD since 02/12 HTN Ischemic Cardiomyopathy Anemia A flutter/Fib on Coumadin Hyperlipidemia GERD Chronic pain Past Surgical History GB Trach (reversed) PEG (removed) Permcath (removed) Port a cath Reported Medications Reviewed in EMP Active Ordered Medications Current Medications Medications (Trade) Dose Ordered Sig/Yue Route Start Time Stop Time Status Last Admin (NS Flush) 2 ml UNSCH PRN IV FLUSH 02/27/17 21:30 (NS Flush) 2 ml BID IV FLUSH 02/28/17 09:00 (Narcan Inj) 0.4 mg UNSCH PRN IV PUSH 02/27/17 21:30 (Xanax) 0.25 mg Q8H PRN PO 02/27/17 21:45 02/28/17 01:14 (Cordarone) 200 mg DAILY PO 02/28/17 09:00 02/28/17 10:11 (Aspirin Chew) 81 mg DAILY CHEW 02/28/17 09:00 02/28/17 10:11 (Bumetanide) 1 mg DAILY PO 02/28/17 09:00 02/28/17 10:10 (Coreg) 12.5 mg Q12HR PO 02/28/17 09:00 02/28/17 10:11 (Cardizem) 30 mg Q6HR PO 02/28/17 00:00 02/28/17 07:00 (Colace) 100 mg BID PO 02/28/17 09:00 (Duragesic 50 Mcg Patch.72 Hr) 1 patch Q72H T-DERMAL 02/28/17 21:45 (Apresoline) 100 mg Q8HR PO 02/27/17 22:00 02/28/17 06:00 (Isordil Tembids Cr) 40 mg BID@08,14 PO 02/28/17 08:00 02/28/17 07:01 (SEROquel) 100 mg BID PO 02/28/17 09:00 02/28/17 10:10 Heparin Sodium/ Dextrose 250 ml @ 8 mls/hr TITRATE PRN IV 02/27/17 22:30 02/27/17 22:38 (Heparin Inj) 5,000 units UNSCH PRN IV PUSH 02/27/17 22:30 (Heparin Inj) 2,500 units UNSCH PRN IV PUSH 02/27/17 22:30 (Protonix) 40 mg DAILY PO 02/28/17 09:00 02/28/17 10:11 Family History Non contributory Social History Lives in [place] Retired Former Smoker (Jovanna Ramires) Physical Exam Vital Signs Vital Signs Date Time Temp Pulse Resp B/P (MAP) Pulse Ox O2 Delivery O2 Flow Rate FiO2 02/28/17 07:15 98.3 82 16 127/62 (83) 95 02/28/17 06:00 48 02/28/17 05:00 40 02/28/17 04:00 54 02/28/17 03:55 98.3 69 20 127/88 (101) 95 02/28/17 03:00 58 02/28/17 02:00 46 02/28/17 01:00 56 02/28/17 00:30 98.0 68 20 142/89 (106) 95 02/28/17 00:00 68 02/27/17 23:00 52 02/27/17 22:00 68 02/27/17 21:00 78 02/27/17 20:43 77 02/27/17 20:07 98.0 81 20 144/73 (96) 93 Physical Exam Elderly female, awake, anxious Bruise right eye, right arm Oriented x 3, follows commands S1/S2, irreg irreg, A flutter,, no murmurs port a cath left Abdomen is soft, obese, non tender Trace lower extremity edema Laboratory Laboratory Tests Test 02/28/17 06:00 02/28/17 06:50 White Blood Count 4.8 Red Blood Count 2.61 Hemoglobin 8.0 Hematocrit 24.4 Mean Corpuscular Volume 93.4 Mean Corpuscular Hemoglobin 30.5 Mean Corpuscular Hemoglobin Concent 32.7 Red Cell Distribution Width 19.2 Platelet Count 88 Mean Platelet Volume 8.6 Neutrophils (%) (Auto) 70.2 Lymphocytes (%) (Auto) 19.1 Monocytes (%) (Auto) 6.5 Eosinophils (%) (Auto) 3.0 Basophils (%) (Auto) 1.2 Neutrophils # (Auto) 3.4 Lymphocytes # (Auto) 0.9 Monocytes # (Auto) 0.3 Eosinophils # (Auto) 0.1 Basophils # (Auto) 0.1 CBC Comment AUTO DIFF Differential Comment AUTO DIFF CONFIRMED Platelet Estimate LOW Platelet Morphology Comment ENLARGED Helmet Cells OCC Blood Urea Nitrogen 61 Creatinine 2.57 Random Glucose 174 Calcium Level 9.4 Sodium Level 135 Potassium Level 4.5 Chloride Level 102 Carbon Dioxide Level 24.8 Anion Gap 8 Estimat Glomerular Filtration Rate 18 Prothrombin Time 34.6 Prothromb Time International Ratio 3.4 Activated Partial Thromboplast Time GREATER THAN 277.5 (Jovanna Ramires) Result Diagram: 02/28/17 0600 02/28/17 0600 Assessment and Plan Problem List: (1) Stage 4 chronic kidney disease ICD Codes: N18.4 - Chronic kidney disease, stage 4 (severe) Plan: Last HD was 02/12; PermCath was removed She is non oliguric If a cardiac cath is indeed required, it will most likely make her dialysis dependent Now her renal function is at baseline Attempt to avoid nephrotoxic agents, use minimal dye if catheterization is required Repeat labs daily Will most likely need dialysis catheter replaced if she is to have cardiac catheterization (2) NSTEMI (non-ST elevated myocardial infarction) ICD Codes: I21.4 - Non-ST elevation (NSTEMI) myocardial infarction Plan: Cardiology following On heparin Gtt Reports negative stress test a few months ago, has a hx of stents in the past. Possibly may require cardiac cath (3) Anemia in chronic renal disease ICD Codes: N18.9 - Chronic kidney disease, unspecified; D63.1 - Anemia in chronic kidney disease Status: Chronic Plan: Give a dose of epogen today. (4) Paroxysmal A-fib ICD Codes: I48.0 - Paroxysmal atrial fibrillation Plan: On dose adjusted coumadin, now on heparin gtt (Jovanna Ramires) Assessment and Plan patient was seen and examined. Agree with above assessment and plan. Seen in [facility] , was on BiPAP. NSTEMI. May need cath. Continue to monitor urine output and renal function. (Zoran Shipman MD) Jovanna Ramires Feb 28, 2017 10:26 Zoran Shipman MD Mar 03, 2017 09:09
[2017-02-28] MEDS ORDERED: NITROGLYCERIN 0.4 MG SL 25 TABS/BTL SL ONE ×3 (10:37→11:00)
[2017-02-28] MEDS ORDERED: MORPHINE SULFATE 2 MG/ML INJ ONE (10:57)
[2017-02-28] MEDS ORDERED: EPOETIN ALFA 20,000 UNITS/ML VIAL SQ ONE (11:00)
[2017-02-28] MEDS ORDERED: MORPHINE SULFATE 2 MG/ML INJ IV ONE (11:15)
[2017-02-28] MEDS ORDERED: fentaNYL 50 MCG/HR PATCH T-DERMAL ONE (11:30)
[2017-02-28] MEDS ORDERED: ATROPINE SULFATE 1 MG/10 ML SYRINGE ONE (11:48)
[2017-02-28] MEDS ORDERED: EPINEPHrine HCL (1:10,000) 1 MG/10 ML SYRINGE ONE (11:48)
--- NOTE | 2017-02-28 12:26 | PD.CONS ---
[facility] Service Critical Care Medicine Consult Requested By Dr. Willard Reason for Consult Respiratory failure management Primary Care Physician Naeem Monteiro M.D. History of Present Illness This is a 76-year-old female. Date of admission 02/27/2017. Date of consultation 02/28/2017. Past medical history includes coronary disease with history of 4 stents in 2001 2003, chronic systolic heart failure ejection fraction 40%, hypertension, anemia of chronic disease, chronic low back pain secondary spell stenosis requiring an implanted morphine intrathecal pump, history history of V. fib arrest,/pulmonary edema and hypoxic respiratory failure resulting in likely anoxic encephalopathy, gastritis and external hemorrhoids. Her recent significant history includes an episode of hyperkalemia with potassium of 7.8 leading to ventricular arrest with admission to [facility] on 11/14/16. She was placed on a ventilator and developed sepsis and pneumonia complications. She was discharged with trach and PEG to [facility] in [place] on 11/26/16 under the care of Dr. Bermudez. The patient was transferred to [facility] on 01/23/17 following trach decannulation. She was transferred to [facility] for hypoxic respiratory distress 02/03/17 and required intubation. EGD and colonoscopy performed due to anemia with findings of gastritis, diverticulosis, and 2 large external hemorrhoids. Arrest her status improved and she was extubated, PEG was removed as she was nutritionally improving, she began to make urine and was sent back to [facility] on 02/13/17. She has been suffering from residual anoxic encephalopathy and is a poor historian as a result. On 02/27/17, she was anticipating discharge from [place] as she had met her goals. Her Port-A-Cath was removed by IR on the . She was also having some left sided chest pain related to Vas cath removal. She indicates she has not required dialysis for 3 weeks. The patient relates her symptoms to anxiety. Denies shortness of breath with ambulation, nausea, vomiting, diaphoresis, diarrhea, black or red stool, dysuria, hematuria, dizziness, or syncope. Her outpatient research physiologist is Dr. Montaño in [place]. She reports that in October, she had an abnormal nuclear stress test and was told that one of her arteries was "clogged". At that time, according to the patient, her research physiologist would not perform a cardiac catheterization due to poor renal function. Today, patient had episode of right-sided chest pain. This was thought to be of muscle skeletal nature. A fentanyl patch was placed and patient became more hypoxic secondary to strain causing part ischemia resulting in flash pulmonary edema. She was placed on BiPAP and given 1 dose of oral bumetanide and transferred to room 526. Review of Systems Constitutional: COMPLAINS OF: Fatigue, DENIES: Fever, Weight gain Endocrine: DENIES: Abnorml menstrual pattern, Heat/cold intolerance Eyes: DENIES: Blurred vision Ears, nose, mouth, throat: COMPLAINS OF: Hearing loss, DENIES: Tinnitus, Throat pain Respiratory: COMPLAINS OF: Shortness of breath, DENIES: Apneas Cardiovascular: COMPLAINS OF: Chest pain Gastrointestinal: COMPLAINS OF: Abdominal pain, DENIES: Constipation, Diarrhea , Nausea Musculoskeletal: DENIES: Joint Swelling Integumentary: DENIES: Abnormal pigmentation Hematologic/lymphatic: DENIES: Bruising Immunologic/allergic: DENIES: Eczema Neurologic: DENIES: Abnormal gait Psychiatric: COMPLAINS OF: Anxiety, DENIES: Confusion Past Family Social History Allergies: Coded Allergies: shellfish derived (Unverified Allergy, Unknown, 11/12/16) Past Medical History External hemorrhoids Gastritis/history of gastric ulcer Paroxysmal atrial fibrillation currently first-degree AV block History of V. fib arrest secondary to hyperkalemia Chronic systolic heart failure ejection fraction 40% History of hypertension Chronic low back pain second spinal stenosis history of implanted intrathecal morphine pain device Coronary artery disease status post cardiac stents 4 Chronic kidney disease stage IV Anxiety disorder hard of hearing Chronic warfarin use Past Surgical History Left ankle Plastic surgery to nose Left permacath implantation and subsequent removal Right port placement Right cochlear implant Implanted morphine intrathecal device Cardiac stents Cholecystectomy Appendectomy PEG tube placement with subsequent removal Tracheostomy/removed Partial thyroidectomy/parathyroidectomy History of colonoscopy/EGD Reported Medications Active Magnesium Oxide 400 Mg Tab 400 Mg PO BID Bumetanide 1 Mg Tab 1 Mg PO DAILY Klor-Con 10 (Potassium Chloride) 10 Meq Tab 10 Meq PO Q12HR Tgt Aspirin (Aspirin) 81 Mg Chw 81 Mg CHEW DAILY Cardizem (Diltiazem HCl) 30 Mg Tab 30 Mg PO Q6HR Coreg (Carvedilol) 12.5 Mg Tab 12.5 Mg PO Q12HR Isosorbide Dinitrate ER (Isosorbide Dinitrate) 40 Mg Cheryl 40 Mg PO BID@08,14 Hydralazine (Hydralazine HCl) 100 Mg Tab 100 Mg PO Q8HR Take with meals Xanax (Alprazolam) 0.25 Mg Tab 0.25 Mg PO Q8H PRN Quetiapine (Quetiapine Fumarate) 100 Mg Tab 100 Mg PO BID Fentanyl Patch 72 HR (Fentanyl) 50 Mcg/Hr Patch 50 Mcg T-DERMAL Q72H Remove old patch when new one placed. Docusate Sodium 100 Mg Cap 100 Mg PO BID Amiodarone (Amiodarone HCl) 200 Mg Tab 200 Mg PO DAILY Walker Rolling/GetGo (Device) 1 Mis Mis Ea .ROUTE DIRECTED Coumadin (Warfarin) 5 Mg Tab 5 Mg PO DAILY@1600 [Metoclopramide Liq] 10 MG/10 ML Syrp 5 Mg PO QID Commode With Arms (Device) 1 Mis Mis Ea .ROUTE DIRECTED Wheelchair (Device) 1 Mis Mis Ea .ROUTE DIRECTED Hospital Bed - Electric 1 Ea Ea Ea .ROUTE DIRECTED Reported Sucralfate 1 Gram Tab 1 Gm PO TID on empty stomach Miralax Powder (Polyethylene Glycol 3350 Powder) 17 Gm Powd 17 Gm PO DAILY Mix and dissolve one measuring cap-ful (17 grams) in water or juice. Calcitonin (Nenana) Nasal Westfir (Calcitonin Nenana) 200 Units/Act Soln 1 Westfir NASAL DAILY Alternate nostrils daily. Bisacodyl Supp (Bisacodyl) 10 Mg Supp 10 Mg RECTAL DAILY PRN Tylenol (Acetaminophen) 325 Mg Tab 325 Mg PO Q6H PRN Active Ordered Medications Reviewed in EMR Family History Mother and father both of CVA Social History No tobacco. 50 years ago. No ankle 19 years. Prior to that was a heavy drinker. Denies illicit drug use. Physical Exam Vital Signs Vital Signs Date Time Temp Pulse Resp B/P (MAP) Pulse Ox O2 Delivery O2 Flow Rate FiO2 02/28/17 11:44 99 100 02/28/17 07:15 98.3 82 16 127/62 (83) 95 02/28/17 06:00 48 02/28/17 05:00 40 02/28/17 04:00 54 02/28/17 03:55 98.3 69 20 127/88 (101) 95 02/28/17 03:00 58 02/28/17 02:00 46 02/28/17 01:00 56 02/28/17 00:30 98.0 68 20 142/89 (106) 95 02/28/17 00:00 68 02/27/17 23:00 52 02/27/17 22:00 68 02/27/17 21:00 78 02/27/17 20:43 77 02/27/17 20:07 98.0 81 20 144/73 (96) 93 Physical Exam GENERAL: This is a 76-year-old female, resting in bed on BiPAP SKIN: Warm and dry. We'll perfused HEAD: Atraumatic. Normocephalic. EYES: Pupils equal and round about 3 mm bilaterally and reactive. No scleral icterus. No injection or drainage. ENT: No nasal bleeding or discharge. Mucous membranes pink and moist. NECK: Trachea midline. No JVD. CARDIOVASCULAR: Regular rate and rhythm. S1, S2. No S4. Without murmur RESPIRATORY: To crackles appreciated in bases bilaterally. Symmetrical excursion.. GASTROINTESTINAL: Abdomen soft, distended. Hypoactive bowel sounds are appreciated. MUSCULOSKELETAL: Extremities with trace bilateral lower extremity edema. No obvious deformities. Left permacath removed. Right Port-A-Cath is clean dry and intact without erythema NEUROLOGICAL: Awake and alert. No obvious cranial nerve deficits. Motor grossly within normal limits. Five out of 5 muscle strength in the arms and legs. Normal speech. Hard of hearing with right cochlear implant Laboratory Laboratory Tests Test 02/28/17 06:00 02/28/17 06:50 White Blood Count 4.8 Red Blood Count 2.61 Hemoglobin 8.0 Hematocrit 24.4 Mean Corpuscular Volume 93.4 Mean Corpuscular Hemoglobin 30.5 Mean Corpuscular Hemoglobin Concent 32.7 Red Cell Distribution Width 19.2 Platelet Count 88 Mean Platelet Volume 8.6 Neutrophils (%) (Auto) 70.2 Lymphocytes (%) (Auto) 19.1 Monocytes (%) (Auto) 6.5 Eosinophils (%) (Auto) 3.0 Basophils (%) (Auto) 1.2 Neutrophils # (Auto) 3.4 Lymphocytes # (Auto) 0.9 Monocytes # (Auto) 0.3 Eosinophils # (Auto) 0.1 Basophils # (Auto) 0.1 CBC Comment AUTO DIFF Differential Comment AUTO DIFF CONFIRMED Platelet Estimate LOW Platelet Morphology Comment ENLARGED Helmet Cells OCC Blood Urea Nitrogen 61 Creatinine 2.57 Random Glucose 174 Calcium Level 9.4 Sodium Level 135 Potassium Level 4.5 Chloride Level 102 Carbon Dioxide Level 24.8 Anion Gap 8 Estimat Glomerular Filtration Rate 18 Prothrombin Time 34.6 Prothromb Time International Ratio 3.4 Activated Partial Thromboplast Time GREATER THAN 277.5 Result Diagram: 02/28/17 0600 02/28/17 0600 Assessment and Plan Assessment and Plan Neuro/Psych: Chronic anoxic encephalopathy Chronic benzodiazepine use Spinal stenosis status post placement of a morphine intrathecal device Currently on alprazolam 0.5 mg every 8 hours. Anxiety Currently on quetiapine 100 Mg Twice a Day Fentanyl patch 50 g every 72 hours. Acetaminophen for fever Hydrocodone/acetaminophen 5/325 one tablet every 4 hours when necessary pain 1- 5 and morphine sulfate 2 mg IV every 2 hours. Pain 6-10 CV: Bradycardia Chest pain History of V. fib arrest secondary to hyperkalemia Chronic systolic heart failure ejection fraction 40% Coronary disease status post stent 4 Hypertension History of paroxysmal atrial fibrillation currently in first-degree AV block Followed by cardiology/Dr. Willard. Plan for cardiac catheterization possibly when stabilized Serial troponins EKG revealed first-degree AV block. ST-T depression in the inferior and lateral leads. Patient has a known ejection fraction 40-45%. Pulmonary artery pressures around 44 mmHg Currently on aspirin 81 mg daily On amiodarone 200 mg by mouth daily currently and hydralazine 100 mg every 8 hours, Isordil dinitrate 40 mg twice a day, carvedilol 12.5 mg twice a day and diltiazem 120 mg daily. Likely hold carvedilol and diltiazem in light of bradycardia Pacer plans in place. Dopamine if needed Continue aspirin 81 mg daily Bumetanide 1 mg daily Resp: Acute respiratory failure Currently on BiPAP 10/5 at 40% to maintain saturations greater than equal to 92% Incentive spirometry while awake Follow-up on chest x-ray Follow-up ABG and chest x-ray CT thorax with residual pending GI: Gastritis/history of gastric ulcer External hemorrhoids Patient is currently nothing by mouth except for medications Pantoprazole for GI prophylaxis Sucralfate 1 g 3 times a day history of gastric ulcers. On polyethylene glycol 17 g daily with constipation along with our bowel regimen docusate/senna 1 tablet twice a day : Olson catheter if indicated for accurate I's and O's in a critically ill patient Endo: Hyperglycemia History of partial thyroidectomy/parathyroidectomy Sliding-scale insulin with Accu-Cheks before meals/at bedtime to maintain euglycemia moderate regimen with Novulin R Check TSH Renal: Chronic kidney disease stage IV. Recently Receiving hemodialysis Friday/ Friday/Friday with Dr. Shipman Nephrology actively following Repeat BMP in a.m. Heme: Anemia of chronic kidney disease Elevated INR/PTT Chronic warfarin use Follow-up CBC coags in a.m. Liver function tests pending Heparin has been discontinued ID: Monitor for infection FEN: Replace electrolytes as clinically indicated MSK: PT evaluate and treat Access - Utilize right Port-A-Cath. Prophylaxis - GI - pantoprazole - DVT - SCD/holding pharmacological prophylaxis in light of elevated INR/PTT Critical Care: The total critical care time was 36 minutes. Time to perform other separately billable procedures was not included in the critical care time. Code Status Full code Discussed Condition With Patient. Dr. Willard/cardiology. Care plan discussed and all questions answered. Erlin Terry MD Feb 28, 2017 12:26
--- NOTE | 2017-02-28 12:48 | PD.CARD.PN ---
Subjective Subjective Remarks Patient with significant right rib/back pain, increased with palpation EKG showing ST depressions as before Given nitro with no help Placed Fentanyl patch which relieved the rib pain SOB throughout episode, placed on Bipap Objective Medications Current Medications Medications (Trade) Dose Ordered Sig/Yue Route Start Time Stop Time Status Last Admin (NS Flush) 2 ml UNSCH PRN IV FLUSH 02/27/17 21:30 (NS Flush) 2 ml BID IV FLUSH 02/28/17 09:00 (Narcan Inj) 0.4 mg UNSCH PRN IV PUSH 02/27/17 21:30 (Xanax) 0.25 mg Q8H PRN PO 02/27/17 21:45 02/28/17 01:14 (Cordarone) 200 mg DAILY PO 02/28/17 09:00 02/28/17 10:11 (Aspirin Chew) 81 mg DAILY CHEW 02/28/17 09:00 02/28/17 10:11 (Bumetanide) 1 mg DAILY PO 02/28/17 09:00 02/28/17 10:10 (Coreg) 12.5 mg Q12HR PO 02/28/17 09:00 02/28/17 10:11 (Cardizem) 30 mg Q6HR PO 02/28/17 00:00 02/28/17 07:00 (Colace) 100 mg BID PO 02/28/17 09:00 (Duragesic 50 Mcg Patch.72 Hr) 1 patch Q72H T-DERMAL 02/28/17 21:45 (Apresoline) 100 mg Q8HR PO 02/27/17 22:00 02/28/17 06:00 (Isordil Tembids Cr) 40 mg BID@08,14 PO 02/28/17 08:00 02/28/17 07:01 (SEROquel) 100 mg BID PO 02/28/17 09:00 02/28/17 10:10 Heparin Sodium/ Dextrose 250 ml @ 8 mls/hr TITRATE PRN IV 02/27/17 22:30 02/27/17 22:38 (Heparin Inj) 5,000 units UNSCH PRN IV PUSH 02/27/17 22:30 (Heparin Inj) 2,500 units UNSCH PRN IV PUSH 02/27/17 22:30 (Protonix) 40 mg DAILY PO 02/28/17 09:00 02/28/17 10:11 Miscellaneous Information 1 ONCE ONCE T-DERMAL 03/03/17 11:30 03/03/17 11:31 Vital Signs / I&O Vital Signs Date Time Temp Pulse Resp B/P (MAP) Pulse Ox O2 Delivery O2 Flow Rate FiO2 02/28/17 11:44 99 100 02/28/17 11:00 98 02/28/17 10:00 82 02/28/17 09:00 62 02/28/17 08:00 52 02/28/17 07:15 98.3 82 16 127/62 (83) 95 02/28/17 07:00 68 02/28/17 06:00 48 02/28/17 05:00 40 02/28/17 04:00 54 02/28/17 03:55 98.3 69 20 127/88 (101) 95 02/28/17 03:00 58 02/28/17 02:00 46 02/28/17 01:00 56 02/28/17 00:30 98.0 68 20 142/89 (106) 95 02/28/17 00:00 68 02/27/17 23:00 52 02/27/17 22:00 68 02/27/17 21:00 78 02/27/17 20:43 77 02/27/17 20:07 98.0 81 20 144/73 (96) 93 I/O 02/27/17 02/27/17 02/27/17 02/28/17 02/28/17 02/28/17 07:00 15:00 23:00 07:00 15:00 23:00 Intake Total 480 ml Output Total 500 ml Balance -20 ml Intake Oral 480 ml Output Urine Total 500 ml Physical Exam GENERAL: Acute distress with tachypnea, AAOx3 SKIN: Warm and dry. HEAD: Atraumatic. Normocephalic. EYES: Pupils equal and round. No scleral icterus. No injection or drainage. Right eye with ecchymosis from previous fall ENT: No nasal bleeding or discharge. Mucous membranes pink and moist. NECK: Trachea midline. No JVD. CARDIOVASCULAR: Regular rate and rhythm. RESPIRATORY: No accessory muscle use. Decreased breath sounds bilaterally GASTROINTESTINAL: Abdomen soft, non-tender, nondistended. Hepatic and splenic margins not palpable. MUSCULOSKELETAL: Extremities without clubbing, cyanosis, or edema. No obvious deformities. NEUROLOGICAL: Awake and alert. No obvious cranial nerve deficits. Motor grossly within normal limits. Five out of 5 muscle strength in the arms and legs. Normal speech. PSYCHIATRIC: Appropriate mood and affect; insight and judgment normal. Laboratory Laboratory Tests Test 02/28/17 06:00 02/28/17 06:50 White Blood Count 4.8 TH/MM3 Red Blood Count 2.61 MIL/MM3 Hemoglobin 8.0 GM/DL Hematocrit 24.4 % Mean Corpuscular Volume 93.4 FL Mean Corpuscular Hemoglobin 30.5 PG Mean Corpuscular Hemoglobin Concent 32.7 % Red Cell Distribution Width 19.2 % Platelet Count 88 TH/MM3 Mean Platelet Volume 8.6 FL Neutrophils (%) (Auto) 70.2 % Lymphocytes (%) (Auto) 19.1 % Monocytes (%) (Auto) 6.5 % Eosinophils (%) (Auto) 3.0 % Basophils (%) (Auto) 1.2 % Neutrophils # (Auto) 3.4 TH/MM3 Lymphocytes # (Auto) 0.9 TH/MM3 Monocytes # (Auto) 0.3 TH/MM3 Eosinophils # (Auto) 0.1 TH/MM3 Basophils # (Auto) 0.1 TH/MM3 CBC Comment AUTO DIFF Differential Comment AUTO DIFF CONFIRMED Platelet Estimate LOW Platelet Morphology Comment ENLARGED Helmet Cells OCC Blood Urea Nitrogen 61 MG/DL Creatinine 2.57 MG/DL Random Glucose 174 MG/DL Calcium Level 9.4 MG/DL Sodium Level 135 MEQ/L Potassium Level 4.5 MEQ/L Chloride Level 102 MEQ/L Carbon Dioxide Level 24.8 MEQ/L Anion Gap 8 MEQ/L Estimat Glomerular Filtration Rate 18 ML/MIN Prothrombin Time 34.6 SEC Prothromb Time International Ratio 3.4 RATIO Activated Partial Thromboplast Time GREATER THAN 277.5 SEC Assessment and Plan Problem List: (1) NSTEMI (non-ST elevated myocardial infarction) ICD Codes: I21.4 - Non-ST elevation (NSTEMI) myocardial infarction (2) H/O ventricular fibrillation ICD Codes: Z86.79 - Personal history of other diseases of the circulatory system (3) Paroxysmal A-fib ICD Codes: I48.0 - Paroxysmal atrial fibrillation (4) Systolic CHF ICD Codes: I50.20 - Unspecified systolic (congestive) heart failure (5) Acute kidney injury ICD Codes: N17.9 - Acute kidney failure, unspecified (6) Hypoxia ICD Codes: R09.02 - Hypoxemia (7) CAD (coronary artery disease) ICD Codes: I25.10 - Atherosclerotic heart disease of [place] coronary artery without angina pectoris (8) Anemia ICD Codes: D64.9 - Anemia, unspecified Assessment and Plan 1) Will attempt to hold off cardiac catheterization with her metabolic derangements Overall high risk for bleeding with an INR of 3.4 and Platelets ~80, as well as drop in Hgb to 8, with multiple drops in Hgb before but never investigated High risk of need for chronic HD with current creatinine, access site removed 2) Fentanyl patch placed, pain relieved in the right ribs 3) SOB, most likely ischemic in nature Placed on bipap, feels much better Plan for Lasix IV x1 4) Transferred to the ICU Case discussed extensively with the patient's Case discussed with primary team and critical care team 4) Appears to have musculoskeletal pain, leading to stress on the heart and ischemic pulmonary edema Most likely has significant CAD Previous episode of Vfib arrest and pulmonary edema 5) Attempt to stabilize metabolic derangements, then will consider ischemic evaluation Problem Qualifiers (1) Anemia: Luis Enrique Willard DO Feb 28, 2017 12:48
[2017-02-28] MEDS: SUCRALFATE 1 GM TAB PO SCH ×2 (13:00→17:55)
[2017-02-28 13:12] LABS: APTT (PATIENT) 89.1 SEC (24.3-30.1)
[2017-02-28] MEDS ORDERED: LACTULOSE SYRUP 20 GM/30 ML CUP PO PRN (13:15)
[2017-02-28] MEDS ORDERED: SENNOSIDES 8.6 MG TAB PO PRN (13:15)
[2017-02-28] MEDS ORDERED: RESP: ALBUTEROL 2.5 MG/3 ML NEB (PRN) INH (13:15)
[2017-02-28] MEDS ORDERED: CHLORHEXIDINE GLUCONATE 2 % 1 PACK (2 CLOTHS) TOP PRN (13:15)
[2017-02-28] MEDS ORDERED: MAGNESIUM HYDROXIDE SUSP 30 ML CUP PO PRN (13:15)
[2017-02-28] MEDS ORDERED: GLUCAGON 1 MG/ML VIAL OTHER PRN (13:15)
[2017-02-28] MEDS ORDERED: DEXTROSE 50% IN WATER 50 ML VIAL(D50) IV PUSH PRN (13:15)
[2017-02-28] MEDS ORDERED: SODIUM CHLORIDE 0.9% FLUSH 10 ML FLUSH IV FLUSH PRN (13:15)
[2017-02-28] MEDS ORDERED: ONDANSETRON HCL 4 MG/2 ML VIAL IV PUSH PRN (13:15)
[2017-02-28] MEDS ORDERED: MISCELLANEOUS NURSING INFORMATION XX SCH (13:15)
[2017-02-28] MEDS ORDERED: BISACODYL 10 MG SUPP RECTAL PRN (13:15)
[2017-02-28] MEDS ORDERED: DOPamine INJ 1,600 MG in DEXTROSE 5% IN WATER INJ 210 ML IV PRN ×2 (13:30)
[2017-02-28] MEDS ORDERED: TERBUTALINE INJ 1 MG/ML AMP SQ PRN (13:30)
--- NOTE | 2017-02-28 13:44 | RADRPT ---
EXAM DATE/TIME: 02/28/2017 13:02 [facility] COMPARISON: CHEST SINGLE AP, February 27, 2017, 15:13. INDICATIONS : Shortness of breath. MEDICAL HISTORY : Anemia. SURGICAL HISTORY : Appendectomy. Cholecystectomy. Thyroidectom. Cochlear implant. Right ankle. Port. ENCOUNTER: Subsequent ACUITY: 3 days PAIN SCORE: Non-responsive. LOCATION: Bilateral chest FINDINGS: The [id number] in excellent position. The heart is enlarged. There is diffuse interstitial prominence. Exam would suggest congestive failur e. There are minimal bilateral effusions. The parenchyma appears similar to prior study. The osseous structures are intact. CONCLUSION: 1. Probable CHF. Duy Chen MD on February 28, 2017 at 13:41 Board Certified Radiologist. This report was verified electronically.
[2017-02-28 14:42] LABS: BLOOD GAS BASE EXCESS -0.2 mmol/L (-2-2); BLOOD GAS CARBOXYHEMOGLOBIN 1.5 % (0-4); BLOOD GAS HCO3 24 mmol/L (22-26); BLOOD GAS METHEMOGLOBIN 1.4 % (0-2); BLOOD GAS O2 HGB SATURATION 96 % (90-100); BLOOD GAS OXYGEN CONTENT 10.4 Vol % (12.0-20.0); BLOOD GAS PCO2 43 mmHg (38-42); BLOOD GAS PO2 188 mmHg (61-120); BLOOD GAS TOTAL HGB 7.4 G/DL (12.0-16.0); CRITICAL VALUE NO; DRAW SITE LT RADIAL; FIO2 50 %; NUMBER OF ARTERIAL PUNCTURES 1; OXYGEN DEVICE BIPAP; STAT NO; TEMP CORR TO 98.6; ULNAR PULSE PRESENT; VENT SETTINGS IPAP 12/EPAP5
[2017-02-28 14:52] LABS: INDIRECT BILIRUBIN 0.3 MG/DL (0.0-0.8); TOTAL BILIRUBIN ADULT 0.4 MG/DL (0.2-1.0)
--- NOTE | 2017-02-28 15:15 | ECHRPT ---
Indication: cp/pulm edema CONCLUSIONS The left ventricular systolic function is moderately reduced with an estimated ejection fraction in the range of 40-45%. Normal left ventricular size. Mitral annular calcification is present. Djpiz-kx-ipck mitral valve regurgitation. Trace aortic valve regurgitation. No aortic valve stenosis. There is mild tricuspid valve regurgitation. The estimated pulmonary arterial pressure is 39.8 mmHg. BP: / HR: Rhythm: MEASUREMENTS (Male / Female) Normal Values Technical Quality:Good 2D ECHO LV Diastolic Diameter PLAX 4.3 cm 4.2 - 5.9 / 3.9 - 5.3 cm LV Systolic Diameter PLAX 3.5 cm IVS Diastolic Thickness 1.8 cm 0.6 - 1.0 / 0.6 - 0.9 cm LVPW Diastolic Thickness 1.0 cm 0.6 - 1.0 / 0.6 - 0.9 cm LV Relative Wall Thickness 0.7 RV Internal Dim ED PLAX 3.1 cm DOPPLER TR Peak Velocity 273.0 cm/s TR Peak Gradient 29.8 mmHg Right Atrial Pressure 10.0 mmHg Pulmonary Artery Systolic Pressu 39.8 mmHg Right Ventricular Systolic Press 39.8 mmHg FINDINGS LEFT VENTRICLE The left ventricular systolic function is moderately reduced with an estimated ejection fraction in the range of 40-45%. Normal left ventricular size. RIGHT VENTRICLE Normal right ventricular size and systolic function. LEFT ATRIUM The left atrial size is normal. RIGHT ATRIUM The right atrial size is normal. ATRIAL SEPTUM Normal atrial septal thickness without atrial level shunting by limited color doppler interrogation. AORTA The aortic root and proximal ascending aorta are normal in size on limited imaging. MITRAL VALVE Structurally normal mitral valve. Mitral annular calcification is present. Ckxaf-hc-skst mitral valve regurgitation. AORTIC VALVE Trileaflet aortic valve. Trace aortic valve regurgitation. No aortic valve stenosis. TRICUSPID VALVE There is mild tricuspid valve regurgitation. Structurally normal tricuspid valve. The estimated pulmonary arterial pressure is 39.8 mmHg. PULMONARY VALVE No pulmonary valve regurgitation or stenosis. VESSELS The inferior vena cava is normal in size. PERICARDIUM No pericardial effusion. Nirmal Abarca MD (Electronically Signed) Final Date:28 February 2017 15:14
--- NOTE | 2017-02-28 16:29 | EKG ---
Date Performed: 02/28/2017 Time Performed: 10:38:14 PTAGE: 76 years EKG: Sinus rhythm with 1st degree A-V block QRS changes V3/V4 may be due to LVH but cannot rule out anterior infarct L VH with secondary repolarization abnormality Inferior/lateral ST-T changes may be due to hypertrophy and/or ischemia. Since previous tracing, no significant change noted Abnormal ECG PREVIOUS TRACING : 02/27/2017 17.10.08 DOCTOR: Alice Carbone Interpretating Date/Time 02/28/2017 16:29:06
[2017-02-28] MEDS: INSULIN NovoLIN REGULAR SUPPLEMENTAL SCALE SQ SCH ×2 (17:00→20:35)
[2017-02-28] MEDS: MORPHINE SULFATE 4 MG/ML INJ IV PUSH PRN ×2 (18:28→20:37)
[2017-02-28 19:20] LABS: BACTERIA, URINE RARE /hpf; BLOOD, URINE NEG (NEG); COMMENT (UR) CATH-CULTURE IND; CULTURE IF INDICATED CATH CULTURE IND; GLUCOSE,URINE NEG (NEG); KETONE, URINE NEG (NEG); MUCUS URINE FEW /lpf (OCC); NITRITE,URINE NEG (NEG); URINE COLOR YELLOW (YELLW/STRAW)
[2017-02-28] MEDS: DOCUSATE SODIUM 50 MG/SENNA 8.6 MG TAB PO SCH (20:35)
[2017-02-28] MEDS ORDERED: SODIUM CHLORIDE 0.9% FLUSH 10 ML FLUSH IV FLUSH SCH (21:00)
[2017-02-28] MEDS: ACETAMINOPHEN/HYDROcodone 325 MG/5 MG TAB PO PRN (22:06)
[2017-02-28 22:11] LABS: APTT (PATIENT) GREATER THAN 277.5 SEC (24.3-30.1)
[2017-03-01] VITALS (22 sets, daily range): BP systolic 130–174; BP diastolic 58–95; PULSE 66–104; RESP 17–40; TEMP 97.4–98.6; O2SAT 96–99
[2017-03-01 00:13] LABS: APTT (PATIENT) GREATER THAN 277.5 SEC (24.3-30.1)
[2017-03-01] MEDS ORDERED: Custom Consult Pharmacy 1 EA OTHER SCH (02:00)
[2017-03-01] MEDS: MORPHINE SULFATE 4 MG/ML INJ IV PUSH PRN ×6 (03:19→21:03)
[2017-03-01] MEDS: CHLORHEXIDINE GLUCONATE 2 % 1 PACK (2 CLOTHS) TOP SCH (04:00)
[2017-03-01] MEDS: hydrALAZINE HCL 100 MG TAB PO SCH ×3 (05:38→20:41)
[2017-03-01 06:01] LABS: AUTOMATED NEUTROPHIL # 2.9 TH/MM3 (1.8-7.7); BASOPHIL % 0.7 % (0.0-2.0); EOSINOPHIL # 0.1 TH/MM3 (0-0.4); HEMATOCRIT 21.9 % (35.0-46.0); LYMPHOCYTE # 0.6 TH/MM3 (1.0-4.8); MEAN CELL VOLUME 94.6 FL (80.0-100.0); MEAN CORPUSCULAR HEMOGLOBIN 30.6 PG (27.0-34.0); MEAN CORPUSCULAR HGB CONC 32.4 % (32.0-36.0); MONO % 6.4 % (0.0-8.0); NEUT % 75.9 % (16.0-70.0); PLATELET COUNT 88 TH/MM3 (150-450); RED BLOOD COUNT 2.32 MIL/MM3 (4.00-5.30); RED CELL DISTRIBUTION WIDTH 18.7 % (11.6-17.2); WHITE BLOOD COUNT 3.8 TH/MM3 (4.0-11.0)
[2017-03-01 06:09] LABS: HEMO FLAGS DIFF FINAL
[2017-03-01 06:20] LABS: ANION GAP 8 MEQ/L (5-15); AST (GOT) 14 U/L (15-37); BICARBONATE 24.8 MEQ/L (21.0-32.0); BLOOD UREA NITROGEN 60 MG/DL (7-18); CHLORIDE 103 MEQ/L (98-107); GLOMERULAR FILTRATION RATE 18 ML/MIN (>89); POTASSIUM 4.7 MEQ/L (3.5-5.1); SODIUM (NA) 136 MEQ/L (136-145)
[2017-03-01 06:22] LABS: ALT (GPT) 15 U/L (10-53)
[2017-03-01] MEDS: ALPRAZolam 0.25 MG TAB PO PRN (06:24)
[2017-03-01 06:25] LABS: ALKALINE PHOSPHATASE 62 U/L (45-117); TOTAL BILIRUBIN ADULT 0.3 MG/DL (0.2-1.0)
[2017-03-01 07:31] LABS: PROTHROMBIN TIME - PATIENT 20.7 SEC (9.8-11.6)
[2017-03-01 07:35] LABS: APTT (PATIENT) GREATER THAN 277.5 SEC (24.3-30.1)
[2017-03-01] MEDS: INSULIN NovoLIN REGULAR SUPPLEMENTAL SCALE SQ SCH ×4 (08:00→21:00)
[2017-03-01] MEDS: SUCRALFATE 1 GM TAB PO SCH ×3 (08:40→17:33)
[2017-03-01] MEDS: AMIODARONE 200 MG TAB PO SCH (08:41)
[2017-03-01] MEDS: ISOSORBIDE DINITRATE 40 MG SUSTAINED RELEASE TAB PO SCH ×2 (08:41→13:58)
[2017-03-01] MEDS: BUMETANIDE 1 MG TAB PO SCH (08:41)
[2017-03-01] MEDS: PANTOPRAZOLE SOD 40 MG DELAYED RELEASE TAB PO SCH (08:41)
[2017-03-01] MEDS: ACETAMINOPHEN/HYDROcodone 325 MG/5 MG TAB PO PRN ×2 (08:41→16:18)
[2017-03-01] MEDS: ASPIRIN 81 MG CHEW TAB CHEW SCH (08:41)
[2017-03-01] MEDS: SODIUM CHLORIDE 0.9% FLUSH 10 ML FLUSH IV FLUSH SCH ×2 (08:42→20:41)
[2017-03-01] MEDS: DOCUSATE SODIUM 50 MG/SENNA 8.6 MG TAB PO SCH ×2 (08:42→20:41)
[2017-03-01] MEDS: POLYETHYLENE GLYCOL 17 GM PKG PO SCH (08:42)
[2017-03-01] MEDS: QUEtiapine FUMARATE 100 MG TAB PO SCH ×2 (08:49→20:41)
[2017-03-01] MEDS: CALCITONIN SALM 200 UNIT/SPRAY 3.7 ML BTLN NASAL SCH (10:08)
--- NOTE | 2017-03-01 11:25 | RADRPT ---
EXAM DATE/TIME: 03/01/2017 11:07 [facility] COMPARISON: No previous studies available for comparison. INDICATIONS : Right lower chest pain. RADIATION DOSE: 14.26 CTDIvol (mGy) ; Combined studies - Thorax/Abdomen/Pelvis MEDICAL HISTORY : Cardiovascular disease. Hypertension. Gastroesophageal reflux disease. Renal failure SURGICAL HISTORY : Appendectomy. Cholecystectomy. ENCOUNTER: Initial ACUITY: 1 day PAIN SCALE: 6/10 LOCATION: Right chest TECHNIQUE: Volumetric scanning of the chest was performed. Using automated exposure control and adjustment of t he mA and/or kV according to patient size, radiation dose was kept as low as reasonably achievable to obtain optimal diagnostic quality images. DICOM format image data is available electronically for r eview and comparison. Follow-up recommendations for detected pulmonary nodules are based at a minimum on nodule size and pa tient risk factors according to Fleischner Society Guidelines. FINDINGS: LUNGS: There is scattered groundglass densities. Numerous subcentimeter pulmonary nodules measuring in size from 3-6 mm bilaterally. PLEURAE: Small bilateral pleural effusions. MEDIASTINUM: The heart and great vessels demonstrate no acute abnormality. There is no mediastinal or hilar lymph adenopathy. Extensive coronary artery calcifications. AXILLAE: Within normal limits. No lymphadenopathy. MUSCULOSKELETAL: Within normal limits for patient age. MISCELLANEOUS: The visualized upper abdominal organs demonstrate small lymph node right cardiophrenic angle measurin g 1.1 cm.. CONCLUSION: 1. Numerous bilateral subcentimeter pulmonary nodules concerning for metastatic disease. 2. Small bilateral pleural effusions and scattered groundglass densities could be infiltrate. 3. Coronary artery calcifications. Jean Paul Arvizu MD on March 01, 2017 at 11:18 Board Certified Radiologist. This report was verified electronically.
--- NOTE | 2017-03-01 11:27 | RADRPT ---
EXAM DATE/TIME: 03/01/2017 11:07 [facility] COMPARISON: No previous studies available for comparison. INDICATIONS : Right abdomen and flank pain. ORAL CONTRAST: No oral contrast ingested. RADIATION DOSE: 14.26 CTDIvol (mGy) ; Combined studies - Thorax/Abdomen/Pelvis MEDICAL HISTORY : Cardiovascular disease. Hypertension. Gastroesophageal reflux disease.Renal failure SURGICAL HISTORY : Appendectomy. Cholecystectomy. ENCOUNTER: Initial ACUITY: 1 day PAIN SCALE: 6/10 LOCATION: Right flank TECHNIQUE: Volumetric scanning of the abdomen and pelvis was performed. Using automated exposure control and ad justment of the mA and/or kV according to patient size, radiation dose was kept as low as reasonably achievable to obtain optimal diagnostic quality images. DICOM format image data is available electro nically for review and comparison. FINDINGS: LOWER LUNGS: Small pleural effusions. Bibasilar pulmonary nodules. LIVER: Homogeneous density without lesion. There is no dilation of the biliary tree. Cholecystectomy clips. SPLEEN: Normal size without lesion. PANCREAS: Within normal limits. KIDNEYS: There is no mass, stone, or hydronephrosis. Left renal stent. Kidneys are small in size. ADRENAL GLANDS: Within normal limits. VASCULAR: There is no aortic aneurysm. BOWEL/MESENTERY: Diverticulosis of the colon without diverticulitis. There is no free intraperitoneal air or fluid. ABDOMINAL WALL: Within normal limits. RETROPERITONEUM: There is no lymphadenopathy. BLADDER: No wall thickening or mass. REPRODUCTIVE: Within normal limits. INGUINAL: There is no lymphadenopathy or hernia. MUSCULOSKELETAL: Left-sided neural stimulator device. Degenerative changes throughout the thoracolumbar spine.. CONCLUSION: 1. Diverticulosis without diverticulitis. 2. Status post cholecystectomy. 3. Atrophic kidneys. 4. No mass or adenopathy. Jean Paul Arvizu MD on March 01, 2017 at 11:23 Board Certified Radiologist. This report was verified electronically.
--- NOTE | 2017-03-01 11:31 | HHI.NPPN ---
Subjective History of Present Illness 76 y/o female with a PMH that includes A fib/flutter on chronic Coumadin, HTN, hyperlipidemia, CAD/ischemic cardiomyopathy. She also has CKD 4. In October she was seen in [facility] with acute hyperkalemia and suffered cardiac arrest. She did survive, was on the ventilator for prolonged period with a trach, eventually weened off the vent and trach, and transferred to [facility] and later to [facility]. The patient had to be dialyzed emergently in October due to hyperkalemia. Additional Remarks Patient is alert, not fully oriented, not in distress. Review of Systems General Constitutional: Fatigue Cardiovascular Cardiac: Edema, SNYDER Objective Data Data Vital Signs Date Time Temp Pulse Resp B/P (MAP) Pulse Ox O2 Delivery O2 Flow Rate FiO2 03/01/17 09:00 99 Nasal Cannula 2.00 03/01/17 06:00 92 03/01/17 05:42 18 03/01/17 04:00 98.1 86 19 135/65 (88) 99 03/01/17 04:00 86 03/01/17 02:00 83 03/01/17 00:00 98.1 90 29 130/58 (82) 98 03/01/17 00:00 90 02/28/17 23:06 18 02/28/17 22:00 94 02/28/17 21:22 61 02/28/17 20:00 73 02/28/17 20:00 98.0 79 20 166/81 (109) 98 02/28/17 19:00 100 Nasal Cannula 3.00 02/28/17 18:00 79 02/28/17 16:07 100 Nasal Cannula 3.00 02/28/17 16:00 42 02/28/17 16:00 97.6 42 19 125/59 (81) 99 02/28/17 15:08 100 Nasal Cannula 3.00 02/28/17 15:00 100 Bi-Pap 50 02/28/17 14:00 45 02/28/17 12:00 98.0 86 31 148/69 (95) 99 02/28/17 12:00 100 Bi-Pap 60 02/28/17 11:44 99 100 -: 03/01/17 0528 03/01/17 0528 Microbiology 02/28/17 Aerobic Blood Culture - Preliminary, Resulted NO GROWTH IN 1 DAY 02/28/17 Anaerobic Blood Culture - Preliminary, Resulted NO GROWTH IN 1 DAY 02/28/17 Aerobic Blood Culture - Preliminary, Resulted NO GROWTH IN 1 DAY 02/28/17 Anaerobic Blood Culture - Preliminary, Resulted NO GROWTH IN 1 DAY 02/28/17 Urine Culture, Received Pending Physical Exam General Appearance: No Acute Distress, Comfortable Eyes Eye Exam: Pupils Equal Throat Throat Exam: Oral Mucosa [place] & Moist Pulmonary Resp Exam: Breath Sounds Equal, No Distress, Rhonchi, Decreased Bases Cardiology CV Exam: Regular Gastrointestinal/Abdomen GI Exam: Soft, Non-Tender, Bowel Sounds Present Neurologic Neuro Exam: Alert, Awake Assessment/Plan Problem List: (1) Stage 4 chronic kidney disease ICD Codes: N18.4 - Chronic kidney disease, stage 4 (severe) Plan: Last HD was 02/12; PermCath was removed She is non oliguric If a cardiac cath is indeed required, it will most likely make her dialysis dependent Now her renal function is at baseline Attempt to avoid nephrotoxic agents, use minimal dye if catheterization is required Repeat labs daily Will most likely need dialysis catheter replaced if she is to have cardiac catheterization. Now going for Abd. CT. Creatinine same, continue to hold HD for now. (2) NSTEMI (non-ST elevated myocardial infarction) ICD Codes: I21.4 - Non-ST elevation (NSTEMI) myocardial infarction Plan: Cardiology following On heparin Gtt Reports negative stress test a few months ago, has a hx of stents in the past. Possibly may require cardiac cath (3) Anemia in chronic renal disease ICD Codes: N18.9 - Chronic kidney disease, unspecified; D63.1 - Anemia in chronic kidney disease Status: Chronic Plan: Give a dose of epogen today. (4) Paroxysmal A-fib ICD Codes: I48.0 - Paroxysmal atrial fibrillation Plan: On dose adjusted coumadin, now on heparin gtt Theresa Husain MD Mar 01, 2017 11:31
--- NOTE | 2017-03-01 11:33 | PD.CARD.PN ---
Subjective Subjective Remarks no complaints Objective Medications Current Medications Medications (Trade) Dose Ordered Sig/Yue Route Start Time Stop Time Status Last Admin (NS Flush) 2 ml UNSCH PRN IV FLUSH 02/27/17 21:30 (NS Flush) 2 ml BID IV FLUSH 02/28/17 09:00 03/01/17 08:42 (Narcan Inj) 0.4 mg UNSCH PRN IV PUSH 02/27/17 21:30 (Xanax) 0.25 mg Q8H PRN PO 02/27/17 21:45 03/01/17 06:24 (Cordarone) 200 mg DAILY PO 02/28/17 09:00 03/01/17 08:41 (Aspirin Chew) 81 mg DAILY CHEW 02/28/17 09:00 03/01/17 08:41 (Bumetanide) 1 mg DAILY PO 02/28/17 09:00 03/01/17 08:41 (Coreg) 12.5 mg Q12HR PO 02/28/17 09:00 Future Hold 02/28/17 10:11 (Cardizem) 30 mg Q6HR PO 02/28/17 00:00 Future Hold 02/28/17 07:00 (Duragesic 50 Mcg Patch.72 Hr) 1 patch Q72H T-DERMAL 03/03/17 12:00 (Apresoline) 100 mg Q8HR PO 02/27/17 22:00 03/01/17 05:38 (Isordil Tembids Cr) 40 mg BID@08,14 PO 02/28/17 08:00 03/01/17 08:41 (SEROquel) 100 mg BID PO 02/28/17 09:00 03/01/17 08:49 Heparin Sodium/ Dextrose 250 ml @ 8 mls/hr TITRATE PRN IV 02/27/17 22:30 Future Hold 02/27/17 22:38 (Heparin Inj) 5,000 units UNSCH PRN IV PUSH 02/27/17 22:30 (Heparin Inj) 2,500 units UNSCH PRN IV PUSH 02/27/17 22:30 (Protonix) 40 mg DAILY PO 02/28/17 09:00 03/01/17 08:41 Miscellaneous Information 1 ONCE ONCE T-DERMAL 03/03/17 11:30 03/03/17 11:31 (Miralax) 17 gm DAILY PO 03/01/17 09:00 (Carafate) 1 gm TID PO 02/28/17 13:00 03/01/17 08:40 Miscellaneous Information 1 Q3D T-DERMAL 03/06/17 12:00 (Tylenol) 650 mg Q6H PRN PO 02/28/17 13:15 ([place] 5-325 Mg) 1 tab Q4H PRN PO 02/28/17 13:15 03/01/17 08:41 (Morphine Inj) 2 mg Q2H PRN IV PUSH 02/28/17 13:15 03/01/17 11:27 (Zofran Inj) 4 mg Q6H PRN IV PUSH 02/28/17 13:15 (Albuterol Neb) 2.5 mg Q2HR NEB PRN INH 02/28/17 13:15 Miscellaneous Information 1 Q361D XX 02/28/17 13:15 02/28/17 13:15 (Chlorhexidine 2% Cloth) 3 pack Taper DAILY@04 TOP 03/01/17 04:00 02/25/18 03:59 03/01/17 04:00 (Chlorhexidine 2% Cloth) 3 pack UNSCH PRN TOP 02/28/17 13:15 (Jacqueline-Colace) 1 tab BID PO 02/28/17 21:00 (Milk Of Magnesia Liq) 30 ml Q12H PRN PO 02/28/17 13:15 (Senokot) 17.2 mg Q12H PRN PO 02/28/17 13:15 (Dulcolax Supp) 10 mg DAILY PRN RECTAL 02/28/17 13:15 (Lactulose Liq) 30 ml DAILY PRN PO 02/28/17 13:15 (D50w (Vial) Inj) 50 ml UNSCH PRN IV PUSH 02/28/17 13:15 (Glucagon Inj) 1 mg UNSCH PRN OTHER 02/28/17 13:15 (NovoLIN R SUPPLEMENTAL SCALE) 1 ACHS SLIDING SCALE SQ 02/28/17 17:00 Dopamine HCl 1600 mg/Dextrose 250 ml @ 1.85 mls/hr TITRATE PRN IV 02/28/17 13:30 (Brethine Inj) 1 mg UNSCH PRN SQ 02/28/17 13:30 Vital Signs / I&O Vital Signs Date Time Temp Pulse Resp B/P (MAP) Pulse Ox O2 Delivery O2 Flow Rate FiO2 03/01/17 09:00 99 Nasal Cannula 2.00 03/01/17 06:00 92 03/01/17 05:42 18 03/01/17 04:00 98.1 86 19 135/65 (88) 99 03/01/17 04:00 86 03/01/17 02:00 83 03/01/17 00:00 98.1 90 29 130/58 (82) 98 03/01/17 00:00 90 02/28/17 23:06 18 02/28/17 22:00 94 02/28/17 21:22 61 02/28/17 20:00 73 02/28/17 20:00 98.0 79 20 166/81 (109) 98 02/28/17 19:00 100 Nasal Cannula 3.00 02/28/17 18:00 79 02/28/17 16:07 100 Nasal Cannula 3.00 02/28/17 16:00 42 02/28/17 16:00 97.6 42 19 125/59 (81) 99 02/28/17 15:08 100 Nasal Cannula 3.00 02/28/17 15:00 100 Bi-Pap 50 02/28/17 14:00 45 02/28/17 12:00 98.0 86 31 148/69 (95) 99 02/28/17 12:00 100 Bi-Pap 60 02/28/17 11:44 99 100 I/O 02/28/17 02/28/17 02/28/17 03/01/17 03/01/17 03/01/17 07:00 15:00 23:00 07:00 15:00 23:00 Intake Total 480 ml 266 ml 506 ml Output Total 500 ml 270 ml 425 ml Balance -20 ml -4 ml 81 ml Intake Oral 480 ml 250 ml 500 ml IV Total 16 ml 6 ml Output Urine Total 500 ml 270 ml 425 ml Physical Exam GENERAL: Well-nourished, well-developed patient. SKIN: Warm and dry. HEAD: Normocephalic. EYES: No scleral icterus. No injection or drainage. NECK: Supple, trachea midline. No JVD or lymphadenopathy. CARDIOVASCULAR: Regular rate and rhythm without murmurs, gallops, or rubs. RESPIRATORY: Breath sounds equal bilaterally. No accessory muscle use. GASTROINTESTINAL: Abdomen soft, non-tender, nondistended. EXTREMITIES: No cyanosis, or edema. NEUROLOGICAL: Awake, alert, and oriented x 3. Non-focal. Laboratory Laboratory Tests Test 02/28/17 12:50 02/28/17 14:00 02/28/17 14:15 02/28/17 14:30 Activated Partial Thromboplast Time 89.1 SEC Fibrinogen 383 mg/dL Lactic Acid Level 0.6 mmol/L Phosphorus Level 3.7 MG/DL Magnesium Level 2.0 MG/DL Total Bilirubin 0.4 MG/DL Direct Bilirubin 0.1 MG/DL Indirect Bilirubin 0.3 MG/DL Aspartate Amino Transf (AST/SGOT) 15 U/L Alanine Aminotransferase (ALT/SGPT) 13 U/L Alkaline Phosphatase 58 U/L Ammonia LESS THAN 10 MCMOL/L Troponin I 1.09 NG/ML Total Protein 5.0 GM/DL Albumin 2.4 GM/DL Amylase Level 33 U/L Lipase 69 U/L Thyroid Stimulating Hormone 3rd Gen 2.190 uIU/ML Nasal Screen MRSA (PCR) MRSA DETECTED Blood Gas Puncture Site LT RADIAL Blood Gas Patient Temperature 98.6 Blood Gas HCO3 24 mmol/L Blood Gas Base Excess -0.2 mmol/L Blood Gas Oxygen Saturation 96 % Arterial Blood pH 7.37 Arterial Blood Partial Pressure CO2 43 mmHg Arterial Blood Partial Pressure O2 188 mmHg Arterial Blood Oxygen Content 10.4 Vol % Arterial Blood Carboxyhemoglobin 1.5 % Arterial Blood Methemoglobin 1.4 % Blood Gas Hemoglobin 7.4 G/DL Oxygen Delivery Device BIPAP Blood Gas Ventilator Setting IPAP 12/EPAP5 Blood Gas Inspired Oxygen 50 % Test 02/28/17 18:15 02/28/17 20:06 02/28/17 21:15 02/28/17 23:18 Urine Color YELLOW Urine Turbidity CLEAR Urine pH 7.0 Urine Specific [place] 1.012 Urine Protein TRACE mg/dL Urine Glucose (UA) NEG mg/dL Urine Ketones NEG mg/dL Urine Occult Blood NEG Urine Nitrite NEG Urine Bilirubin NEG Urine Urobilinogen LESS THAN 2.0 MG/DL Urine Leukocyte Esterase SMALL Urine RBC 2 /hpf Urine WBC 8 /hpf Urine Bacteria RARE /hpf Urine Mucus FEW /lpf Microscopic Urinalysis Comment CATH-CULTURE IND Troponin I 1.28 NG/ML Activated Partial Thromboplast Time GREATER THAN 277.5 SEC GREATER THAN 277.5 SEC Test 03/01/17 01:00 03/01/17 05:28 03/01/17 10:10 Activated Partial Thromboplast Time 63.0 SEC GREATER THAN 277.5 SEC 51.0 SEC White Blood Count 3.8 TH/MM3 Red Blood Count 2.32 MIL/MM3 Hemoglobin 7.1 GM/DL Hematocrit 21.9 % Mean Corpuscular Volume 94.6 FL Mean Corpuscular Hemoglobin 30.6 PG Mean Corpuscular Hemoglobin Concent 32.4 % Red Cell Distribution Width 18.7 % Platelet Count 88 TH/MM3 Mean Platelet Volume 8.7 FL Neutrophils (%) (Auto) 75.9 % Lymphocytes (%) (Auto) 15.0 % Monocytes (%) (Auto) 6.4 % Eosinophils (%) (Auto) 2.0 % Basophils (%) (Auto) 0.7 % Neutrophils # (Auto) 2.9 TH/MM3 Lymphocytes # (Auto) 0.6 TH/MM3 Monocytes # (Auto) 0.2 TH/MM3 Eosinophils # (Auto) 0.1 TH/MM3 Basophils # (Auto) 0.0 TH/MM3 CBC Comment DIFF FINAL Differential Comment Prothrombin Time 20.7 SEC Prothromb Time International Ratio 2.0 RATIO Blood Urea Nitrogen 60 MG/DL Creatinine 2.54 MG/DL Random Glucose 81 MG/DL Total Protein 5.3 GM/DL Albumin 2.5 GM/DL Calcium Level 8.9 MG/DL Phosphorus Level 4.1 MG/DL Magnesium Level 2.0 MG/DL Alkaline Phosphatase 62 U/L Aspartate Amino Transf (AST/SGOT) 14 U/L Alanine Aminotransferase (ALT/SGPT) 15 U/L Total Bilirubin 0.3 MG/DL Sodium Level 136 MEQ/L Potassium Level 4.7 MEQ/L Chloride Level 103 MEQ/L Carbon Dioxide Level 24.8 MEQ/L Anion Gap 8 MEQ/L Estimat Glomerular Filtration Rate 18 ML/MIN Lactic Acid Level 0.4 mmol/L Troponin I 0.82 NG/ML Imaging Last [address] 03/01/17 0000 Signed Impressions: Service Date/Time: Wednesday, March 01, 2017 11:07 - CONCLUSION: 1. Numerous bilateral subcentimeter pulmonary nodules concerning for metastatic disease. 2. Small bilateral pleural effusions and scattered groundglass densities could be infiltrate. 3. Coronary artery calcifications. Jean Paul Arvizu MD Assessment and Plan Problem List: (1) NSTEMI (non-ST elevated myocardial infarction) ICD Codes: I21.4 - Non-ST elevation (NSTEMI) myocardial infarction Plan: cont medical management hct drop transfuse 2uPRBC's (2) H/O ventricular fibrillation ICD Codes: Z86.79 - Personal history of other diseases of the circulatory system (3) Paroxysmal A-fib ICD Codes: I48.0 - Paroxysmal atrial fibrillation (4) Systolic CHF ICD Codes: I50.20 - Unspecified systolic (congestive) heart failure (5) Acute kidney injury ICD Codes: N17.9 - Acute kidney failure, unspecified (6) Hypoxia ICD Codes: R09.02 - Hypoxemia (7) CAD (coronary artery disease) ICD Codes: I25.10 - Atherosclerotic heart disease of [place] coronary artery without angina pectoris (8) Anemia ICD Codes: D64.9 - Anemia, unspecified Problem Qualifiers (1) Anemia: Nirmal Abarca MD Mar 01, 2017 11:33
--- NOTE | 2017-03-01 13:27 | HHI.CCPN ---
Subjective Remarks/Hospital Course This is a 76-year-old female. Date of admission 02/27/2017. Date of consultation 02/28/2017. Past medical history includes coronary disease with history of 4 stents in 2001 2003, chronic systolic heart failure ejection fraction 40%, hypertension, anemia of chronic disease, chronic low back pain secondary spell stenosis requiring an implanted morphine intrathecal pump, history history of V. fib arrest,/pulmonary edema and hypoxic respiratory failure resulting in likely anoxic encephalopathy, gastritis and external hemorrhoids. Her recent significant history includes an episode of hyperkalemia with potassium of 7.8 leading to ventricular arrest with admission to [facility] on 11/14/16. She was placed on a ventilator and developed sepsis and pneumonia complications. She was discharged with trach and PEG to [facility] in [place] on 11/26/16 under the care of Dr. Bermudez. The patient was transferred to [facility] on 01/23/17 following trach decannulation. She was transferred to [facility] for hypoxic respiratory distress 02/03/17 and required intubation. EGD and colonoscopy performed due to anemia with findings of gastritis, diverticulosis, and 2 large external hemorrhoids. Arrest her status improved and she was extubated, PEG was removed as she was nutritionally improving, she began to make urine and was sent back to [facility] on 02/13/17. She has been suffering from residual anoxic encephalopathy and is a poor historian as a result. On 02/27/17, she was anticipating discharge from [place] as she had met her goals. Her Port-A-Cath was removed by IR on the . She was also having some left sided chest pain related to Vas cath removal. She indicates she has not required dialysis for 3 weeks. The patient relates her symptoms to anxiety. Denies shortness of breath with ambulation, nausea, vomiting, diaphoresis, diarrhea, black or red stool, dysuria, hematuria, dizziness, or syncope. Her outpatient clerk general is Dr. Montaño in [place]. She reports that in October, she had an abnormal nuclear stress test and was told that one of her arteries was "clogged". At that time, according to the patient, her clerk general would not perform a cardiac catheterization due to poor renal function. Today, patient had episode of right-sided chest pain. This was thought to be of muscle skeletal nature. A fentanyl patch was placed and patient became more hypoxic secondary to strain causing part ischemia resulting in flash pulmonary edema. She was placed on BiPAP and given 1 dose of oral bumetanide and transferred to room 526. Subjective 03/01: Bradycardia is resolved. Being transfused 2 units per cc per cardiology. Abnormal CAT scan chest noted. Family requests Dr. King to see Objective Vital Signs Date Time Temp Pulse Resp B/P (MAP) Pulse Ox O2 Delivery O2 Flow Rate FiO2 03/01/17 09:00 99 Nasal Cannula 2.00 03/01/17 06:00 92 03/01/17 05:42 18 03/01/17 04:00 98.1 135/65 (88) 02/28/17 15:00 50 Intake and Output 03/01/17 03/01/17 03/02/17 08:00 16:00 00:00 Intake Total 506 ml Output Total 425 ml Balance 81 ml Result Diagram: 03/01/17 0528 03/01/17 0528 Other Results Microbiology Date/Time Source Procedure Growth Status 02/28/17 14:27 Blood Peripheral Aerobic Blood Culture - Preliminary NO GROWTH IN 1 DAY Resulted 02/28/17 14:27 Blood Peripheral Anaerobic Blood Culture - Preliminary NO GROWTH IN 1 DAY Resulted 02/28/17 18:15 Urine Catheterized Urine Urine Culture Pending Received Imaging Last Impressions Chest CT 03/01/17 0000 Signed Impressions: Service Date/Time: Wednesday, March 01, 2017 11:07 - CONCLUSION: 1. Numerous bilateral subcentimeter pulmonary nodules concerning for metastatic disease. 2. Small bilateral pleural effusions and scattered groundglass densities could be infiltrate. 3. Coronary artery calcifications. Jean Paul Arvizu MD Abdomen/Pelvis CT 03/01/17 0000 Signed Impressions: Service Date/Time: Wednesday, March 01, 2017 11:07 - CONCLUSION: 1. Diverticulosis without diverticulitis. 2. Status post cholecystectomy. 3. Atrophic kidneys. 4. No mass or adenopathy. Jean Paul Arvizu MD Chest X-Ray 02/28/17 0000 Signed Impressions: Service Date/Time: Tuesday, February 28, 2017 13:02 - CONCLUSION: 1. Probable CHF. Duy Chen MD Objective Remarks GENERAL: This is a 76-year-old female, resting in bed on nasal cannula in no acute distress SKIN: Warm and dry. We'll perfused HEAD: Atraumatic. Normocephalic. EYES: Pupils equal and round about 3 mm bilaterally and reactive. No scleral icterus. No injection or drainage. ENT: No nasal bleeding or discharge. Mucous membranes pink and moist. NECK: Trachea midline. No JVD. CARDIOVASCULAR: Regular rate and rhythm. S1, S2. No S4. Without murmur RESPIRATORY: To crackles appreciated in bases bilaterally. Symmetrical excursion.. GASTROINTESTINAL: Abdomen soft, distended. Hypoactive bowel sounds are appreciated. MUSCULOSKELETAL: Extremities with trace bilateral lower extremity edema. No obvious deformities. Left permacath removed with Steri-Strips old blood. Right Port-A-Cath is clean dry and intact without erythema NEUROLOGICAL: Awake and alert. No obvious cranial nerve deficits. Motor grossly within normal limits. Five out of 5 muscle strength in the arms and legs. Normal speech. 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 Anxiety Currently on quetiapine 100 Mg Twice a Day Fentanyl patch 50 g every 72 hours. Acetaminophen for fever Hydrocodone/acetaminophen 5/325 one tablet every 4 hours when necessary pain 1- 5 and morphine sulfate 2 mg IV every 2 hours. Pain 6-10 CV: Bradycardia - resolved Chest pain History of V. fib arrest secondary to hyperkalemia Chronic systolic heart failure ejection fraction 40% Coronary disease status post stent 4 Hypertension History of paroxysmal atrial fibrillation currently in first-degree AV block Followed by cardiology/Dr. Willard. Plan for cardiac catheterization possibly when stabilized Serial troponins EKG revealed first-degree AV block. ST-T depression in the inferior and lateral leads. Patient has a known ejection fraction 40-45%. Pulmonary artery pressures around 44 mmHg Currently on aspirin 81 mg daily On amiodarone 200 mg by mouth daily currently and hydralazine 100 mg every 8 hours, Isordil dinitrate 40 mg twice a day, carvedilol 12.5 mg twice a day and diltiazem 120 mg daily. Will resume carvedilol and hold diltiazem today Pacer plans in place. Dopamine if needed Continue aspirin 81 mg daily Bumetanide 1 mg daily Family requesting Dr. King to see Resp: Acute respiratory failure Currently on nasal cannula to maintain saturations greater than or equal to 92% Incentive spirometry while awake Follow-up on chest x-ray Follow-up ABG and chest x-ray CT thorax reveals small bilateral pleural effusions, groundglass opacities and subcentimeter pulmonary nodules. Requesting ulnar to evaluate GI: Gastritis/history of gastric ulcer External hemorrhoids Hypoalbuminemia Patient is currently nothing by mouth except for medications Pantoprazole for GI prophylaxis Sucralfate 1 g 3 times a day history of gastric ulcers. On polyethylene glycol 17 g daily with constipation along with our bowel regimen docusate/senna 1 tablet twice a day : Olson catheter if indicated for accurate I's and O's in a critically ill patient Endo: Hyperglycemia History of partial thyroidectomy/parathyroidectomy Sliding-scale insulin with Accu-Cheks before meals/at bedtime to maintain euglycemia moderate regimen with Novulin R Renal: Chronic kidney disease stage IV. Recently Receiving hemodialysis Friday/ Friday/Friday with Dr. Shipman [facility] actively following. Creatinine currently 2.54 Repeat BMP in a.m. Heme: Anemia of chronic kidney disease Elevated INR/PTT Chronic warfarin use Leukopenia Anemia Thrombocytopenia Follow-up CBC coags in a.m. Heparin drip to be continued. Transfusing 2 units PRBCs today for cardiology's request ID: Monitor for infection FEN: Replace electrolytes as clinically indicated MSK: PT evaluate and treat Access - Utilize right Port-A-Cath. Prophylaxis - GI - pantoprazole - DVT - SCD/heparin drip Critical Care: The total critical care time was 36 minutes. Time to perform other separately billable procedures was not included in the critical care time. Erlin Terry MD Mar 01, 2017 13:27
[2017-03-01] MEDS ORDERED: FUROSEMIDE 20 MG/2 ML VIAL IV PUSH ONE (14:00)
[2017-03-01] MEDS: ACETAMINOPHEN 325 MG TAB PO PRN (16:18)
--- NOTE | 2017-03-01 17:09 | MB ---
cc: KARINA COLLINS M.D. DATE OF CONSULTATION: 03/01/2017 REASON FOR CONSULTATION: Respiratory failure. Significant hypoxemia. HISTORY OF PRESENT ILLNESS: Mrs. Buckley is a 76-year-old female known with history of chronic renal insufficiency on hemodialysis who started about three weeks ago with history of coronary artery disease post stent placement, congestive heart failure, hypotension, chronic anemia. The patient was previously intubated and mechanically ventilated and had developed a cardiac arrest at [facility] in October of this year complicated by sepsis and pneumonia. She has a PEG-tube in place. The patient was subsequently discharged to be followed as an outpatient however had developed some chest pain for which she was admitted to the hospital with evidence of NSTEMI. The patient is presently on ventilatory support with tracheostomy in place. She remains on maintenance hemodialysis. Her oxygenation has become somewhat difficult. Today she is on 70% inspired oxygen fraction with oxygen saturation around 90%. She has been much easier to oxygenate previously. PAST MEDICAL HISTORY: Her past medical history is that of: 1. Chronic renal insufficiency on maintenance hemodialysis. 2. Hypertension. 3. Coronary artery disease. 4. Chronic anemia. 5. Atrial flutter/fibrillation with anticoagulant therapy. 6. Acid reflux disease. 7. Hyperlipidemia. FAMILY HISTORY: Noncontributory. SOCIAL HISTORY: Does not smoke, does not drink. No TB. No industrial exposure. REVIEW OF SYSTEMS: A twelve-point review of systems is as per the history of present illness and past history, otherwise negative. REVIEW OF SYSTEMS 12-point review of systems as per HPI and past history otherwise negative. MEDICATIONS: Medications include: 1. Cordarone. 2. Bumex. 3. Coreg. 4. Cardizem. 5. Isordil. 6. Heparin prophylaxis. 7. Protonix. ALLERGIES: 1. SHELLFISH. 2. NONE TO MEDICATIONS. PHYSICAL EXAMINATION: VITAL SIGNS: On exam, temperature 98.5, pulse 80, respirations 18, blood pressure 140/80. HEAD, EYES, EARS, NOSE, THROAT: Unremarkable. Eyes without icterus. NECK: Without adenopathy, thyroid enlargement, central trachea. CHEST: No dullness to percussion. Clear to auscultation. CARDIAC: Irregularity noted. ABDOMEN: Lax. Bowel sounds audible. EXTREMITIES: No cyanosis, clubbing or edema. LABORATORY DATA: White count 4.8, hemoglobin 8, hematocrit 24, platelets at 88,000. Sodium 135, potassium 4.5, BUN 61, creatinine 2.5. White count 4.8, hemoglobin 8, hematocrit 24. IMPRESSION: CT chest today (dictation ended here) Karina Collins MD WWW/RAUL /4:37 PM /4:53 PM
--- NOTE | 2017-03-01 18:03 | MB ---
cc: KARINA COLLINS M.D. DATE OF CONSULTATION: 03/01/2017. REASON FOR CONSULTATION: Bilateral lung nodules. HISTORY OF PRESENT ILLNESS: Mrs. Buckley is a 76-year-old female with history of end-stage renal disease, coronary artery disease, post stent placement who was admitted with chest pain with evidence of non-S-T elevated myocardial infarction. The patient is alert and has some difficulty relating an accurate history. The history is mostly obtained from the patient's record. She denies history of shortness of breath, fever, chills, cough or expectoration. PAST MEDICAL HISTORY: Her past medical history is that of: 1. Chronic renal failure on maintenance hemodialysis. 2. Coronary artery disease. 3. Systolic congestive heart failure with ejection fraction around 40% to 45%. 4. History of ventricular fibrillation and cardiac arrest. 5. Atrial fibrillation, paroxysmal in nature. 6. She had coronary artery stents in place. 7. Previous tracheostomy and reversal. SOCIAL HISTORY: Does not smoke. Does not drink. No TB. No industrial exposure. FAMILY HISTORY: Noncontributory. REVIEW OF SYSTEMS: A twelve-point review of systems is as per the history of present illness and past history, otherwise negative. PHYSICAL EXAMINATION: GENERAL: On exam, the patient is alert. VITAL SIGNS: Temperature 98, pulse 80, respirations 16, blood pressure 128/70. HEAD, EYES, EARS, NOSE, THROAT: Unremarkable. Eyes without icterus. NECK: Without adenopathy, thyroid enlargement. CHEST: No dullness to percussion. Clear to auscultation. CARDIAC: PMI distant. S1 and S2 audible. No murmur, no rub. ABDOMEN: Lax. Bowel sounds audible. EXTREMITIES: 1+ edema. LABORATORY DATA: White count 3.8, hemoglobin 7, hematocrit 21, platelets 88,000. Sodium 136, potassium 4.7, BUN 60, creatinine 2.5. Arterial blood gas on February 28, 2017: pH 77, pCO2 43, pO2 188. INR 2.0. IMAGING STUDIES: CT scan of the chest with evidence of numerous bilateral subcentimeter lung nodules significance unclear with suspicion for metastatic disease. Small bilateral effusions are noted as well. IMPRESSION: 1. Bilateral lung nodules, significance unclear. 2. Non-ST elevated myocardial infarction. 3. Congestive heart failure. 4. Paroxysmal atrial fibrillation. 5. History of ventricular fibrillation and cardiac arrest. 6. Coronary artery disease post stent placement. PLAN: The patient's lung nodules need further evaluation; however, at this time would wait for her stabilization and transfer to the medical floor at which time a decision will be made as to which approach will be best in an attempt to identify the etiology of the patient' lung nodules and whether these are malignant or benign in nature as well as the chronicity. I do thank you for asking me to partake in Mrs. Buckley's care. Karina Collins MD WWW/RAUL /5:06 PM /5:50 PM
[2017-03-01 18:27] LABS: APTT (PATIENT) 53.7 SEC (24.3-30.1)
[2017-03-01] MEDS: MUPIROCIN 2% OINT 1 APPLIC/GM SYR EACH NARE SCH (20:40)
[2017-03-01] MEDS: CARVEDILOL 12.5 MG TAB PO SCH (20:40)
[2017-03-02] VITALS (21 sets, daily range): BP systolic 114–194; BP diastolic 55–102; PULSE 48–98; RESP 12–41; TEMP 97.8–98.5; O2SAT 96–99
[2017-03-02] MEDS: MORPHINE SULFATE 4 MG/ML INJ IV PUSH PRN ×6 (02:13→22:33)
[2017-03-02] MEDS: CHLORHEXIDINE GLUCONATE 2 % 1 PACK (2 CLOTHS) TOP SCH (04:00)
[2017-03-02] MEDS: hydrALAZINE HCL 100 MG TAB PO SCH ×3 (06:05→20:09)
[2017-03-02 06:18] LABS: AUTOMATED NEUTROPHIL # 2.4 TH/MM3 (1.8-7.7); BASOPHIL % 0.8 % (0.0-2.0); EOSINOPHIL # 0.2 TH/MM3 (0-0.4); EOSINOPHIL % 4.5 % (0.0-4.0); LYMPH % 23.9 % (9.0-44.0); LYMPHOCYTE # 0.9 TH/MM3 (1.0-4.8); MEAN CELL VOLUME 89.3 FL (80.0-100.0); MEAN CORPUSCULAR HEMOGLOBIN 28.9 PG (27.0-34.0); MEAN CORPUSCULAR HGB CONC 32.4 % (32.0-36.0); MONO % 7.4 % (0.0-8.0); NEUT % 63.4 % (16.0-70.0); PLATELET COUNT 91 TH/MM3 (150-450); RED BLOOD COUNT 3.13 MIL/MM3 (4.00-5.30); RED CELL DISTRIBUTION WIDTH 20.2 % (11.6-17.2); WHITE BLOOD COUNT 3.7 TH/MM3 (4.0-11.0)
[2017-03-02 06:19] LABS: HEMO FLAGS AUTO DIFF
[2017-03-02 06:59] LABS: BICARBONATE 24.1 MEQ/L (21.0-32.0); MAGNESIUM 1.9 MG/DL (1.5-2.5); POTASSIUM 4.4 MEQ/L (3.5-5.1)
[2017-03-02 07:31] LABS: PLATELET ESTIMATE SMEAR LOW (NORMAL); PLATELET MORPHOLOGY NORMAL (NORMAL); SCAN/DIFF AUTO DIFF CONFIRMED
[2017-03-02] MEDS: INSULIN NovoLIN REGULAR SUPPLEMENTAL SCALE SQ SCH ×4 (08:00→21:00)
[2017-03-02] MEDS: ASPIRIN 81 MG CHEW TAB CHEW SCH (08:51)
[2017-03-02] MEDS: DOCUSATE SODIUM 50 MG/SENNA 8.6 MG TAB PO SCH ×2 (08:51→20:09)
[2017-03-02] MEDS: POLYETHYLENE GLYCOL 17 GM PKG PO SCH (08:52)
[2017-03-02] MEDS: QUEtiapine FUMARATE 100 MG TAB PO SCH ×2 (08:52→20:08)
[2017-03-02] MEDS: AMIODARONE 200 MG TAB PO SCH (08:52)
[2017-03-02] MEDS: ACETAMINOPHEN/HYDROcodone 325 MG/5 MG TAB PO PRN (08:52)
[2017-03-02] MEDS: BUMETANIDE 1 MG TAB PO SCH (08:52)
[2017-03-02] MEDS: CARVEDILOL 12.5 MG TAB PO SCH ×2 (08:52→20:09)
[2017-03-02] MEDS: PANTOPRAZOLE SOD 40 MG DELAYED RELEASE TAB PO SCH (08:52)
[2017-03-02] MEDS: SUCRALFATE 1 GM TAB PO SCH ×3 (08:52→17:28)
[2017-03-02] MEDS: ISOSORBIDE DINITRATE 40 MG SUSTAINED RELEASE TAB PO SCH ×2 (08:52→12:53)
[2017-03-02] MEDS: SODIUM CHLORIDE 0.9% FLUSH 10 ML FLUSH IV FLUSH SCH ×2 (08:53→20:09)
[2017-03-02] MEDS: CALCITONIN SALM 200 UNIT/SPRAY 3.7 ML BTLN NASAL SCH (09:03)
[2017-03-02] MEDS: MUPIROCIN 2% OINT 1 APPLIC/GM SYR EACH NARE SCH ×2 (09:03→20:09)
[2017-03-02] MEDS: HEPARIN 25,000 UNITS-D5W 250 ML - PREMIX IV PRN (09:55)
[2017-03-02] MEDS: REMOVE OLD DURAGESIC (FENTANYL) PATCH T-DERMAL SCH (12:00)
[2017-03-02] MEDS: fentaNYL 50 MCG/HR PATCH T-DERMAL SCH (12:53)
--- NOTE | 2017-03-02 13:19 | MB ---
cc: NICKI DAY MD DATE OF CONSULTATION: 03/02/2017 REASON FOR CONSULTATION: Second opinion on management of coronary, renal disease and associated comorbidities. HISTORY OF PRESENT DISEASE: This 76 year-old lady has a long history of repeated admissions starting in October of this year when she sustained myocardial infarction, and cardiac arrest. She was transferred to [facility], from there she came to us and that is where the saga begins. The patient has been now twice to the rehab and each time she had a problem, now returns to the ICU with non ST NC. The patient is now in a situation where various options are being considered and she is caught between cardiac failure, renal failure and other comorbidities, and hence the second opinion is sought. On last admission from the rehab, the patient had non ST NC. She was evaluated by cardiology and the cardiac catheterization was deferred considering the patient's renal function. PAST MEDICAL HISTORY: 1. Chronic renal insufficiency with several episodes of dialysis since October this year. 2. Coronary artery disease with ischemic cardiomyopathy. 3. Congestive heart failure with ejection fraction about 40% which is actually pretty good. 4. History of atrial fibrillation with RVR. PAST SURGICAL HISTORY: 1. Coronary artery angioplasty and stenting. 2. Previous tracheostomy. SOCIAL HISTORY: The patient never smoked. Does not drink. ALLERGIES: No allergies. PHYSICAL EXAMINATION: Physical examination reveals an unfortunate 76-year-old lady. HEENT: Normocephalic. No trauma to the head. Pupils equally reactive. Extraocular muscles intact. Sclerae appear to be fairly pale and the patient looks gaunt, anemic and sort of discolored slightly grayish. NECK: Bilateral carotid pulses, no bruits. CHEST: Bilateral breath sounds, decreased over both lung ruff, consistent with moderate degree of COPD. HEART: The patient is currently in sinus rhythm with a heart rate of about 80. Occasional PAC noted. ABDOMEN: Soft. No rebound or guarding. No masses. EXTREMITIES: The patient has palpable femoral pulses and no distal pulses on palpation whatsoever. She has weak dopplerable pulses. Capillary refill is delayed. BACK: Normal. IMPRESSION AND RECOMMENDATION: I completely agree with current management. This patient is being managed by the expertise of cardiology, nephrology, pulmonary and intensive care teams. These are recognized experts with extensive experience and there is nothing I can add to this care. The patient's peripheral vascular disease takes a back burner position at this time. Question whether the patient should be catheterized or not can be best answered by the geospatial systems integrator and the laborer cement gun placing, however, as an customer support professional looking at this, I believe the benefits of a cardiac catheterization in somebody who had multiple stents placed and has known ischemic cardiopathy are probably small while the risk of throwing this patient into renal failure requiring dialysis is fairly high, so I think the risk/benefit ratio at this point goes in favor of not catheterizing the patient at this time. If the patient improves in rehab later on, and the creatinine comes down then maybe this balance would change. Right now I completely agree with medical management. Thank you for the referral. Critical care time: 38 minutes. Nicki BLANCO /12:51 PM /1:05 PM
--- NOTE | 2017-03-02 13:57 | HHI.PR ---
Subjective Remarks NO ACUTE DISTRESS ON O2 THERAPY Objective Vital Signs Date Time Temp Pulse Resp B/P (MAP) Pulse Ox O2 Delivery O2 Flow Rate FiO2 03/02/17 10:02 78 17 178/77 (110) 99 03/02/17 09:01 77 41 194/88 (123) 97 03/02/17 08:15 98 Nasal Cannula 2.00 03/02/17 08:00 97.8 64 18 150/70 (96) 98 03/02/17 07:00 Nasal Cannula 2.00 03/02/17 06:10 25 03/02/17 06:00 76 03/02/17 04:00 98.5 73 23 130/63 (85) 97 03/02/17 04:00 73 03/02/17 02:00 72 03/02/17 01:15 99 35 03/02/17 00:00 64 03/02/17 00:00 98.3 48 13 114/55 (74) 98 03/01/17 22:15 99 35 03/01/17 22:00 72 03/01/17 21:00 99 35 03/01/17 20:48 98.1 83 25 146/67 97 03/01/17 20:00 98.1 66 18 146/67 (93) 98 03/01/17 20:00 66 03/01/17 19:00 98 Nasal Cannula 3.00 03/01/17 17:30 98.5 80 20 139/63 98 03/01/17 17:15 98.6 86 20 140/74 97 03/01/17 16:00 86 18 142/70 (94) 96 03/01/17 15:00 97 26 140/79 (99) 98 03/01/17 14:00 97 18 142/71 (94) 97 I/O 03/01/17 03/01/17 03/01/17 03/02/17 03/02/17 03/02/17 07:00 15:00 23:00 07:00 15:00 23:00 Intake Total 506 ml 1277 ml 505 ml Output Total 425 ml 1400 ml 1150 ml Balance 81 ml -123 ml -645 ml Intake Oral 500 ml 420 ml 480 ml IV Total 6 ml 12 ml 25 ml Packed Cells 800 ml Blood Product IV Normal Saline Flush 45 ml Output Urine Total 425 ml 1400 ml 1150 ml # Bowel Movements 0 0 Result Diagram: 03/02/1760503/02/17605 Objective Remarks GENERAL: SKIN: Warm and dry. HEAD: Atraumatic. Normocephalic. EYES: Pupils equal and round. No scleral icterus. No injection or drainage. ENT: No nasal bleeding or discharge. Mucous membranes pink and moist. NECK: Trachea midline. No JVD. CARDIOVASCULAR: Regular rate and rhythm. RESPIRATORY: No accessory muscle use. Clear to auscultation. Breath sounds equal bilaterally. GASTROINTESTINAL: Abdomen soft, non-tender, nondistended. Hepatic and splenic margins not palpable. MUSCULOSKELETAL: Extremities without clubbing, cyanosis, or edema. No obvious deformities. NEUROLOGICAL: Awake and alert. No obvious cranial nerve deficits. Motor grossly within normal limits. Five out of 5 muscle strength in the arms and legs. Normal speech. PSYCHIATRIC: Appropriate mood and affect; insight and judgment normal. Assessment and Plan Assessment and Plan BILATERAL LUNG NODULES CAD PLAN BRONCHOSCOPY WHEN ON MED FLOOR Karina Collins MD Mar 02, 2017 13:57
--- NOTE | 2017-03-02 15:49 | PD.CARD.PN ---
Subjective Subjective Remarks no complaints Objective Medications Current Medications Medications (Trade) Dose Ordered Sig/Yue Route Start Time Stop Time Status Last Admin (NS Flush) 2 ml UNSCH PRN IV FLUSH 02/27/17 21:30 (NS Flush) 2 ml BID IV FLUSH 02/28/17 09:00 03/02/17 08:53 (Narcan Inj) 0.4 mg UNSCH PRN IV PUSH 02/27/17 21:30 (Xanax) 0.25 mg Q8H PRN PO 02/27/17 21:45 03/01/17 06:24 (Cordarone) 200 mg DAILY PO 02/28/17 09:00 03/02/17 08:52 (Aspirin Chew) 81 mg DAILY CHEW 02/28/17 09:00 03/02/17 08:51 (Bumetanide) 1 mg DAILY PO 02/28/17 09:00 03/02/17 08:52 (Cardizem) 30 mg Q6HR PO 02/28/17 00:00 Future Hold 02/28/17 07:00 (Duragesic 50 Mcg Patch.72 Hr) 1 patch Q72H T-DERMAL 03/02/17 12:00 03/02/17 12:53 (Apresoline) 100 mg Q8HR PO 02/27/17 22:00 03/02/17 12:54 (Isordil Tembids Cr) 40 mg BID@08,14 PO 02/28/17 08:00 03/02/17 12:53 (SEROquel) 100 mg BID PO 02/28/17 09:00 03/02/17 08:52 Heparin Sodium/ Dextrose 250 ml @ 8 mls/hr TITRATE PRN IV 02/27/17 22:30 Future hold 03/02/17 09:55 (Heparin Inj) 5,000 units UNSCH PRN IV PUSH 02/27/17 22:30 (Heparin Inj) 2,500 units UNSCH PRN IV PUSH 02/27/17 22:30 (Protonix) 40 mg DAILY PO 02/28/17 09:00 03/02/17 08:52 (Miralax) 17 gm DAILY PO 03/01/17 09:00 03/02/17 08:52 (Carafate) 1 gm TID PO 02/28/17 13:00 03/02/17 12:53 Miscellaneous Information 1 Q3D T-DERMAL 03/02/17 12:00 (Tylenol) 650 mg Q6H PRN PO 02/28/17 13:15 03/01/17 16:18 ([place] 5-325 Mg) 1 tab Q4H PRN PO 02/28/17 13:15 03/02/17 08:52 (Morphine Inj) 2 mg Q2H PRN IV PUSH 02/28/17 13:15 03/02/17 12:58 (Zofran Inj) 4 mg Q6H PRN IV PUSH 02/28/17 13:15 (Albuterol Neb) 2.5 mg Q2HR NEB PRN INH 02/28/17 13:15 Miscellaneous Information 1 Q361D XX 02/28/17 13:15 02/28/17 13:15 (Chlorhexidine 2% Cloth) 3 pack Taper DAILY@04 TOP 03/01/17 04:00 02/25/18 03:59 03/02/17 04:00 (Chlorhexidine 2% Cloth) 3 pack UNSCH PRN TOP 02/28/17 13:15 (Jacqueline-Colace) 1 tab BID PO 02/28/17 21:00 03/02/17 08:51 (Milk Of Magnesia Liq) 30 ml Q12H PRN PO 02/28/17 13:15 (Senokot) 17.2 mg Q12H PRN PO 02/28/17 13:15 (Dulcolax Supp) 10 mg DAILY PRN RECTAL 02/28/17 13:15 (Lactulose Liq) 30 ml DAILY PRN PO 02/28/17 13:15 (D50w (Vial) Inj) 50 ml UNSCH PRN IV PUSH 02/28/17 13:15 (Glucagon Inj) 1 mg UNSCH PRN OTHER 02/28/17 13:15 (NovoLIN R SUPPLEMENTAL SCALE) 1 ACHS SLIDING SCALE SQ 02/28/17 17:00 03/01/17 21:00 Dopamine HCl 1600 mg/Dextrose 250 ml @ 1.85 mls/hr TITRATE PRN IV 02/28/17 13:30 (Brethine Inj) 1 mg UNSCH PRN SQ 02/28/17 13:30 (Bactroban Nasal 2% Oint) 1 applic Taper BID EACH NARE 03/01/17 21:00 02/25/18 20:59 03/02/17 09:03 (Coreg) 12.5 mg Q12HR PO 03/01/17 21:00 03/02/17 08:52 Vital Signs / I&O Vital Signs Date Time Temp Pulse Resp B/P (MAP) Pulse Ox O2 Delivery O2 Flow Rate FiO2 03/02/17 10:02 78 17 178/77 (110) 99 03/02/17 09:01 77 41 194/88 (123) 97 03/02/17 08:15 98 Nasal Cannula 2.00 03/02/17 08:00 97.8 64 18 150/70 (96) 98 03/02/17 07:00 Nasal Cannula 2.00 03/02/17 06:10 25 03/02/17 06:00 76 03/02/17 04:00 98.5 73 23 130/63 (85) 97 03/02/17 04:00 73 03/02/17 02:00 72 03/02/17 01:15 99 35 03/02/17 00:00 64 03/02/17 00:00 98.3 48 13 114/55 (74) 98 03/01/17 22:15 99 35 03/01/17 22:00 72 03/01/17 21:00 99 35 03/01/17 20:48 98.1 83 25 146/67 97 03/01/17 20:00 98.1 66 18 146/67 (93) 98 03/01/17 20:00 66 03/01/17 19:00 98 Nasal Cannula 3.00 03/01/17 17:30 98.5 80 20 139/63 98 03/01/17 17:15 98.6 86 20 140/74 97 03/01/17 16:00 86 18 142/70 (94) 96 I/O 03/01/17 03/01/17 03/01/17 03/02/17 03/02/17 03/02/17 07:00 15:00 23:00 07:00 15:00 23:00 Intake Total 506 ml 1277 ml 505 ml Output Total 425 ml 1400 ml 1150 ml Balance 81 ml -123 ml -645 ml Intake Oral 500 ml 420 ml 480 ml IV Total 6 ml 12 ml 25 ml Packed Cells 800 ml Blood Product IV Normal Saline Flush 45 ml Output Urine Total 425 ml 1400 ml 1150 ml # Bowel Movements 0 0 Physical Exam GENERAL: Well-nourished, well-developed patient. SKIN: Warm and dry. HEAD: Normocephalic. EYES: No scleral icterus. No injection or drainage. NECK: Supple, trachea midline. No JVD or lymphadenopathy. CARDIOVASCULAR: Regular rate and rhythm without murmurs, gallops, or rubs. RESPIRATORY: Breath sounds equal bilaterally. No accessory muscle use. GASTROINTESTINAL: Abdomen soft, non-tender, nondistended. EXTREMITIES: No cyanosis, or edema. NEUROLOGICAL: Awake, alert, and oriented x 3. Non-focal. Laboratory Laboratory Tests Test 03/01/17 17:00 03/02/17 06:06 Activated Partial Thromboplast Time 53.7 SEC 49.0 SEC White Blood Count 3.7 TH/MM3 Red Blood Count 3.13 MIL/MM3 Hemoglobin 9.1 GM/DL Hematocrit 28.0 % Mean Corpuscular Volume 89.3 FL Mean Corpuscular Hemoglobin 28.9 PG Mean Corpuscular Hemoglobin Concent 32.4 % Red Cell Distribution Width 20.2 % Platelet Count 91 TH/MM3 Mean Platelet Volume 8.2 FL Neutrophils (%) (Auto) 63.4 % Lymphocytes (%) (Auto) 23.9 % Monocytes (%) (Auto) 7.4 % Eosinophils (%) (Auto) 4.5 % Basophils (%) (Auto) 0.8 % Neutrophils # (Auto) 2.4 TH/MM3 Lymphocytes # (Auto) 0.9 TH/MM3 Monocytes # (Auto) 0.3 TH/MM3 Eosinophils # (Auto) 0.2 TH/MM3 Basophils # (Auto) 0.0 TH/MM3 CBC Comment AUTO DIFF Differential Comment AUTO DIFF CONFIRMED Platelet Estimate LOW Platelet Morphology Comment NORMAL Blood Urea Nitrogen 58 MG/DL Creatinine 2.58 MG/DL Random Glucose 81 MG/DL Calcium Level 9.3 MG/DL Phosphorus Level 3.9 MG/DL Magnesium Level 1.9 MG/DL Sodium Level 138 MEQ/L Potassium Level 4.4 MEQ/L Chloride Level 105 MEQ/L Carbon Dioxide Level 24.1 MEQ/L Anion Gap 9 MEQ/L Estimat Glomerular Filtration Rate 18 ML/MIN Imaging Last Impressions Chest CT 03/01/17 0000 Signed Impressions: Service Date/Time: Saturday, March 01, 2017 11:07 - CONCLUSION: 1. Numerous bilateral subcentimeter pulmonary nodules concerning for metastatic disease. 2. Small bilateral pleural effusions and scattered groundglass densities could be infiltrate. 3. Coronary artery calcifications. Jean Paul Arvizu MD Abdomen/Pelvis CT 03/01/17 0000 Signed Impressions: Service Date/Time: Wednesday, March 01, 2017 11:07 - CONCLUSION: 1. Diverticulosis without diverticulitis. 2. Status post cholecystectomy. 3. Atrophic kidneys. 4. No mass or adenopathy. Jean Paul Arvizu MD Chest X-Ray 02/28/17 0000 Signed Impressions: Service Date/Time: Tuesday, February 28, 2017 13:02 - CONCLUSION: 1. Probable CHF. Duy Chen MD Assessment and Plan Problem List: (1) NSTEMI (non-ST elevated myocardial infarction) ICD Codes: I21.4 - Non-ST elevation (NSTEMI) myocardial infarction Plan: cont medical management Dr. Willard to f/u in AM (2) H/O ventricular fibrillation ICD Codes: Z86.79 - Personal history of other diseases of the circulatory system (3) Paroxysmal A-fib ICD Codes: I48.0 - Paroxysmal atrial fibrillation (4) Systolic CHF ICD Codes: I50.20 - Unspecified systolic (congestive) heart failure (5) Acute kidney injury ICD Codes: N17.9 - Acute kidney failure, unspecified (6) Hypoxia ICD Codes: R09.02 - Hypoxemia (7) CAD (coronary artery disease) ICD Codes: I25.10 - Atherosclerotic heart disease of [place] coronary artery without angina pectoris (8) Anemia ICD Codes: D64.9 - Anemia, unspecified Problem Qualifiers (1) Anemia: Nirmal Abarca MD Mar 02, 2017 15:49
--- NOTE | 2017-03-02 16:15 | HHI.CCPN ---
Subjective Remarks/Hospital Course This is a 76-year-old female. Date of admission 02/27/2017. Date of consultation 02/28/2017. Past medical history includes coronary disease with history of 4 stents in 2001 2003, chronic systolic heart failure ejection fraction 40%, hypertension, anemia of chronic disease, chronic low back pain secondary spell stenosis requiring an implanted morphine intrathecal pump, history history of V. fib arrest,/pulmonary edema and hypoxic respiratory failure resulting in likely anoxic encephalopathy, gastritis and external hemorrhoids. Her recent significant history includes an episode of hyperkalemia with potassium of 7.8 leading to ventricular arrest with admission to [facility] on 11/14/16. She was placed on a ventilator and developed sepsis and pneumonia complications. She was discharged with trach and PEG to [facility] in [place] on 11/26/16 under the care of Dr. Bermudez. The patient was transferred to [facility] on 01/23/17 following trach decannulation. She was transferred to [facility] for hypoxic respiratory distress 02/03/17 and required intubation. EGD and colonoscopy performed due to anemia with findings of gastritis, diverticulosis, and 2 large external hemorrhoids. Arrest her status improved and she was extubated, PEG was removed as she was nutritionally improving, she began to make urine and was sent back to [facility] on 02/13/17. She has been suffering from residual anoxic encephalopathy and is a poor historian as a result. On 02/27/17, she was anticipating discharge from [place] as she had met her goals. Her Port-A-Cath was removed by IR on the . She was also having some left sided chest pain related to Vas cath removal. She indicates she has not required dialysis for 3 weeks. The patient relates her symptoms to anxiety. Denies shortness of breath with ambulation, nausea, vomiting, diaphoresis, diarrhea, black or red stool, dysuria, hematuria, dizziness, or syncope. Her outpatient barrel filler is Dr. Montaño in [place]. She reports that in October, she had an abnormal nuclear stress test and was told that one of her arteries was "clogged". At that time, according to the patient, her barrel filler would not perform a cardiac catheterization due to poor renal function. Today, patient had episode of right-sided chest pain. This was thought to be of muscle skeletal nature. A fentanyl patch was placed and patient became more hypoxic secondary to strain causing part ischemia resulting in flash pulmonary edema. She was placed on BiPAP and given 1 dose of oral bumetanide and transferred to room 526. Subjective 03/01: Bradycardia is resolved. Being transfused 2 units per cc per cardiology. Abnormal CAT scan chest noted. Family requests Dr. King to see 03/02: No acute events overnight. Today patient went 8 blood or with 3-1 conduction, with self resolution. Dynamically stable systolic blood pressure 170s denies chest pain at this time. Objective Vital Signs Date Time Temp Pulse Resp B/P (MAP) Pulse Ox O2 Delivery O2 Flow Rate FiO2 03/02/17 10:02 78 17 178/77 (110) 99 03/02/17 08:15 Nasal Cannula 2.00 03/02/17 08:00 97.8 03/02/17 01:15 35 Intake and Output 03/02/17 03/02/17 03/03/17 08:00 16:00 00:00 Intake Total 505 ml Output Total 1150 ml Balance -645 ml Result Diagram: 03/02/17 0606 03/02/17 0606 Other Results Microbiology Date/Time Source Procedure Growth Status 02/28/17 18:15 Urine Catheterized Urine Urine Culture - Final NO GROWTH IN 48 HOURS. Complete Imaging Last Impressions Chest CT 03/01/17 0000 Signed Impressions: Service Date/Time: Wednesday, March 01, 2017 11:07 - CONCLUSION: 1. Numerous bilateral subcentimeter pulmonary nodules concerning for metastatic disease. 2. Small bilateral pleural effusions and scattered groundglass densities could be infiltrate. 3. Coronary artery calcifications. Jean Paul Arvizu MD Abdomen/Pelvis CT 03/01/17 0000 Signed Impressions: Service Date/Time: Wednesday, March 01, 2017 11:07 - CONCLUSION: 1. Diverticulosis without diverticulitis. 2. Status post cholecystectomy. 3. Atrophic kidneys. 4. No mass or adenopathy. Jean Paul Arvizu MD Chest X-Ray 02/28/17 0000 Signed Impressions: Service Date/Time: Tuesday, February 28, 2017 13:02 - CONCLUSION: 1. Probable CHF. Duy Chen MD Objective Remarks GENERAL: This is a 76-year-old female, resting in bed on nasal cannula in no acute distress SKIN: Warm and dry. Well perfused HEAD: Atraumatic. Normocephalic. EYES: Pupils equal and round about 3 mm bilaterally and reactive. No scleral icterus. No injection or drainage. ENT: No nasal bleeding or discharge. Mucous membranes pink and moist. NECK: Trachea midline. No JVD. CARDIOVASCULAR: Regular rate and rhythm. S1, S2. No S4. Without murmur RESPIRATORY: To crackles appreciated in bases bilaterally. Symmetrical excursion.. GASTROINTESTINAL: Abdomen soft, distended. Hypoactive bowel sounds are appreciated. MUSCULOSKELETAL: Extremities with trace bilateral lower extremity edema. No obvious deformities. Left permacath removed with Steri-Strips old blood. Right Port-A-Cath is clean dry and intact without erythema NEUROLOGICAL: Awake and alert. No obvious cranial nerve deficits. Motor grossly within normal limits. 5/5 muscle strength in the arms and legs. Normal speech. 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 Anxiety Currently on quetiapine 100 Mg Twice a Day Fentanyl patch 50 g every 72 hours. Acetaminophen for fever Hydrocodone/acetaminophen 5/325 one tablet every 4 hours when necessary pain 1- 5 and morphine sulfate 2 mg IV every 2 hours. Pain 6-10 CV: Bradycardia - resolved Chest pain History of V. fib arrest secondary to hyperkalemia Chronic systolic heart failure ejection fraction 40% Coronary disease status post stent 4 Hypertension History of paroxysmal atrial fibrillation currently in first-degree AV block Followed by cardiology/Dr. Willard. Plan for cardiac catheterization possibly when stabilized Serial troponins EKG revealed first-degree AV block. ST-T depression in the inferior and lateral leads. Patient has a known ejection fraction 40-45%. Pulmonary artery pressures around 44 mmHg Currently on aspirin 81 mg daily On amiodarone 200 mg by mouth daily currently and hydralazine 100 mg every 8 hours, Isordil dinitrate 40 mg twice a day, carvedilol 12.5 mg twice a day and diltiazem 120 mg daily. Carvedilol initiated 03/02 and hold diltiazem today Pacer plans in place. Dopamine if needed Continue aspirin 81 mg daily Bumetanide 1 mg daily Resp: Acute respiratory failure Currently on nasal cannula to maintain saturations greater than or equal to 92% Incentive spirometry while awake Follow-up on chest x-ray Follow-up ABG and chest x-ray CT thorax reveals small bilateral pleural effusions, groundglass opacities and subcentimeter pulmonary nodules. Pulmonology consulted , Dr. Collins GI: Gastritis/history of gastric ulcer External hemorrhoids Hypoalbuminemia Patient is currently nothing by mouth except for medications Pantoprazole for GI prophylaxis Sucralfate 1 g 3 times a day history of gastric ulcers. On polyethylene glycol 17 g daily with constipation along with our bowel regimen docusate/senna 1 tablet twice a day : Olson catheter if indicated for accurate I's and O's in a critically ill patient Endo: Hyperglycemia History of partial thyroidectomy/parathyroidectomy Sliding-scale insulin with Accu-Cheks before meals/at bedtime to maintain euglycemia moderate regimen with Novulin R Renal: Chronic kidney disease stage IV. Recently Receiving hemodialysis Friday/ Friday/Friday with Dr. Shipman Nephrology actively following. Creatinine currently 2.58, and elevation patient received additional doses of diuretics secondary to blood transfusion on 03/01 Repeat BMP in a.m. Heme: Anemia of chronic kidney disease Elevated INR/PTT Chronic warfarin use Leukopenia Anemia Thrombocytopenia Follow-up CBC coags in a.m. Heparin drip to be continued. 03/01 Transfused 2 units PRBCs per cardiology's request ID: Monitor for infection FEN: Replace electrolytes as clinically indicated MSK: PT evaluate and treat Access - Utilize right Port-A-Cath. Prophylaxis - GI - pantoprazole - DVT - SCD/heparin drip Dispo: This patient remains critically ill with one or more organ systems which are or may become a threat to life. I have spent in excess of 34 minutes discontinuously in the care and management of this patient. This time is exclusive of procedures, and includes, but is not limited to, evaluation of the patient, review of the medical record, discussions with family, consultants, nursing staff, or respiratory therapy, and documentation in the medical record. Physician Sharon Alvares MD Mar 02, 2017 16:15
--- NOTE | 2017-03-02 19:34 | HHI.NPPN ---
Subjective History of Present Illness 76 y/o female with a PMH that includes A fib/flutter on chronic Coumadin, HTN, hyperlipidemia, CAD/ischemic cardiomyopathy. She also has CKD 4. In October she was seen in [place] ER with acute hyperkalemia and suffered cardiac arrest. She did survive, was on the ventilator for prolonged period with a trach, eventually weened off the vent and trach, and transferred to [facility] and later to [facility]. The patient had to be dialyzed emergently in October due to hyperkalemia. Additional Remarks Patient is alert, feeling better, no SOB, not in distress. Review of Systems General Constitutional: Fatigue Cardiovascular Cardiac: Edema, SNYDER Objective Data Data 03/02/17 03/03/17 19:00 07:00 Intake Total 622 ml Output Total 1250 ml Balance -628 ml Intake Oral 600 ml IV Total 22 ml Output Urine Total 1250 ml # Bowel Movements 0 Vital Signs Date Time Temp Pulse Resp B/P (MAP) Pulse Ox O2 Delivery O2 Flow Rate FiO2 03/02/17 19:18 20 03/02/17 17:00 48 14 145/69 (94) 97 03/02/17 16:05 61 12 131/70 (90) 97 03/02/17 16:00 98.1 66 15 143/67 (92) 97 03/02/17 15:01 57 20 143/69 (93) 97 03/02/17 14:00 77 22 176/95 (122) 98 03/02/17 13:00 77 22 154/72 (99) 96 03/02/17 12:00 98.0 65 21 172/80 (110) 97 03/02/17 11:03 96 29 189/92 (124) 96 03/02/17 11:00 98 32 175/102 (126) 96 03/02/17 10:02 78 17 178/77 (110) 99 03/02/17 09:01 77 41 194/88 (123) 97 03/02/17 08:15 98 Nasal Cannula 2.00 03/02/17 08:00 97.8 64 18 150/70 (96) 98 03/02/17 07:00 Nasal Cannula 2.00 03/02/17 06:00 76 03/02/17 04:00 98.5 73 23 130/63 (85) 97 03/02/17 04:00 73 03/02/17 02:00 72 03/02/17 01:15 99 35 03/02/17 00:00 64 03/02/17 00:00 98.3 48 13 114/55 (74) 98 03/01/17 22:15 99 35 03/01/17 22:00 72 03/01/17 21:00 99 35 03/01/17 20:48 98.1 83 25 146/67 97 03/01/17 20:00 98.1 66 18 146/67 (93) 98 03/01/17 20:00 66 -: 03/02/17 0606 03/02/17 0606 Physical Exam General Appearance: No Acute Distress, Comfortable Eyes Eye Exam: Pupils Equal Throat Throat Exam: Oral Mucosa [place] & Moist Pulmonary Resp Exam: Breath Sounds Equal, No Distress, Rhonchi, Decreased Bases Cardiology CV Exam: Regular Gastrointestinal/Abdomen GI Exam: Soft, Non-Tender, Bowel Sounds Present Neurologic Neuro Exam: Alert, Awake Assessment/Plan Problem List: (1) Stage 4 chronic kidney disease ICD Codes: N18.4 - Chronic kidney disease, stage 4 (severe) Plan: Last HD was 02/12; PermCath was removed She is non oliguric If a cardiac cath is indeed required, it will most likely make her dialysis dependent Now her renal function is at baseline Attempt to avoid nephrotoxic agents, use minimal dye if catheterization is required Repeat labs daily Will most likely need dialysis catheter replaced if she is to have cardiac catheterization. Abd. CT done and results noted. Creatinine same, continue to hold HD for now. Dr. Shipman will follow from AM. (2) NSTEMI (non-ST elevated myocardial infarction) ICD Codes: I21.4 - Non-ST elevation (NSTEMI) myocardial infarction Plan: Cardiology following On heparin Gtt Reports negative stress test a few months ago, has a hx of stents in the past. Possibly may require cardiac cath (3) Anemia in chronic renal disease ICD Codes: N18.9 - Chronic kidney disease, unspecified; D63.1 - Anemia in chronic kidney disease Status: Chronic Plan: Give a dose of epogen today. (4) Paroxysmal A-fib ICD Codes: I48.0 - Paroxysmal atrial fibrillation Plan: On dose adjusted coumadin, now on heparin gtt Theresa Husain MD Mar 02, 2017 19:34
[2017-03-02] MEDS: ALPRAZolam 0.25 MG TAB PO PRN (22:33)
--- NOTE | 2017-03-02 22:55 | EKG ---
Date Performed: 03/01/2017 Time Performed: 09:44:14 PTAGE: 76 years EKG: Sinus rhythm WITH 2ND DEGREE AV BLOCK, MOBITZ TYPE II NONSPECIFIC ST & T-WAVE ABNORMALITY ABNORMAL ECG PREVIOUS TRACING : 02/28/2017 15.39 Compared to prior tracing no significant change DOCTOR: Thee Deleon Interpretating Date/Time 03/02/2017 22:54:49
--- NOTE | 2017-03-02 23:25 | EKG ---
Date Performed: 02/28/2017 Time Performed: 15:39:58 PTAGE: 76 years EKG: Sinus bradycardia with PAC(s) with 1st degree A-V block Lateral ST-T changes are nonspecifi c Abnormal ECG PREVIOUS TRACING : 02/28/2017 10.38 Compared to the previous tracing sinus bradycardia is new DOCTOR: Thee Deleon Interpretating Date/Time 03/02/2017 23:23:58
[2017-03-03] VITALS (15 sets, daily range): BP systolic 113–165; BP diastolic 54–83; PULSE 41–109; RESP 17–23; TEMP 97.6–98.3; O2SAT 92–99
[2017-03-03] MEDS: MORPHINE SULFATE 4 MG/ML INJ IV PUSH PRN ×6 (02:08→21:12)
[2017-03-03] MEDS: CHLORHEXIDINE GLUCONATE 2 % 1 PACK (2 CLOTHS) TOP SCH (04:00)
[2017-03-03] MEDS: hydrALAZINE HCL 100 MG TAB PO SCH ×3 (05:26→21:04)
[2017-03-03 05:53] LABS: HEMATOCRIT 27.7 % (35.0-46.0); MEAN CELL VOLUME 89.8 FL (80.0-100.0); MEAN CORPUSCULAR HEMOGLOBIN 30.2 PG (27.0-34.0); MEAN CORPUSCULAR HGB CONC 33.7 % (32.0-36.0); PLATELET COUNT 96 TH/MM3 (150-450); RED BLOOD COUNT 3.08 MIL/MM3 (4.00-5.30); RED CELL DISTRIBUTION WIDTH 19.4 % (11.6-17.2)
[2017-03-03 06:00] LABS: APTT (PATIENT) 43.9 SEC (24.3-30.1); REVIEW FLAG FINAL
[2017-03-03 06:15] LABS: BICARBONATE 24.8 MEQ/L (21.0-32.0); MAGNESIUM 1.8 MG/DL (1.5-2.5)
[2017-03-03] MEDS: BUMETANIDE 1 MG TAB PO SCH (07:58)
[2017-03-03] MEDS: POLYETHYLENE GLYCOL 17 GM PKG PO SCH (07:58)
[2017-03-03] MEDS: ASPIRIN 81 MG CHEW TAB CHEW SCH (07:58)
[2017-03-03] MEDS: PANTOPRAZOLE SOD 40 MG DELAYED RELEASE TAB PO SCH (07:58)
[2017-03-03] MEDS: DOCUSATE SODIUM 50 MG/SENNA 8.6 MG TAB PO SCH ×2 (07:58→21:04)
[2017-03-03] MEDS: MUPIROCIN 2% OINT 1 APPLIC/GM SYR EACH NARE SCH ×2 (07:58→21:04)
[2017-03-03] MEDS: AMIODARONE 200 MG TAB PO SCH (07:58)
[2017-03-03] MEDS: SUCRALFATE 1 GM TAB PO SCH ×3 (07:58→17:27)
[2017-03-03] MEDS: QUEtiapine FUMARATE 100 MG TAB PO SCH ×2 (07:58→21:04)
[2017-03-03] MEDS: ISOSORBIDE DINITRATE 40 MG SUSTAINED RELEASE TAB PO SCH ×2 (07:58→12:40)
[2017-03-03] MEDS: CARVEDILOL 12.5 MG TAB PO SCH ×2 (07:59→21:03)
[2017-03-03] MEDS: SODIUM CHLORIDE 0.9% FLUSH 10 ML FLUSH IV FLUSH SCH ×2 (07:59→21:04)
[2017-03-03] MEDS: CALCITONIN SALM 200 UNIT/SPRAY 3.7 ML BTLN NASAL SCH (07:59)
[2017-03-03] MEDS: INSULIN NovoLIN REGULAR SUPPLEMENTAL SCALE SQ SCH ×4 (08:00→21:00)
[2017-03-03] MEDS: ACETAMINOPHEN/HYDROcodone 325 MG/5 MG TAB PO PRN (10:02)
[2017-03-03] MEDS ORDERED: REMOVE OLD DURAGESIC (FENTANYL) PATCH T-DERMAL ONE (11:30)
--- NOTE | 2017-03-03 12:21 | PD.CARD.PN ---
Subjective Subjective Remarks Patient with right sided rib pain, increased with palpation Unsure if she hit her ribs with her fall while in rehab Denies chest pain Objective Medications Current Medications Medications (Trade) Dose Ordered Sig/Yue Route Start Time Stop Time Status Last Admin (NS Flush) 2 ml UNSCH PRN IV FLUSH 02/27/17 21:30 (NS Flush) 2 ml BID IV FLUSH 02/28/17 09:00 03/03/17 07:59 (Narcan Inj) 0.4 mg UNSCH PRN IV PUSH 02/27/17 21:30 (Xanax) 0.25 mg Q8H PRN PO 02/27/17 21:45 03/02/17 22:33 (Cordarone) 200 mg DAILY PO 02/28/17 09:00 03/03/17 07:58 (Aspirin Chew) 81 mg DAILY CHEW 02/28/17 09:00 03/03/17 07:58 (Bumetanide) 1 mg DAILY PO 02/28/17 09:00 03/03/17 07:58 (Cardizem) 30 mg Q6HR PO 02/28/17 00:00 Future Hold 02/28/17 07:00 (Duragesic 50 Mcg Patch.72 Hr) 1 patch Q72H T-DERMAL 03/02/17 12:00 03/02/17 12:53 (Apresoline) 100 mg Q8HR PO 02/27/17 22:00 03/03/17 05:26 (Isordil Tembids Cr) 40 mg BID@08,14 PO 02/28/17 08:00 03/03/17 07:58 (SEROquel) 100 mg BID PO 02/28/17 09:00 03/03/17 07:58 Heparin Sodium/ Dextrose 250 ml @ 8 mls/hr TITRATE PRN IV 02/27/17 22:30 Future hold 03/02/17 09:55 (Heparin Inj) 5,000 units UNSCH PRN IV PUSH 02/27/17 22:30 (Heparin Inj) 2,500 units UNSCH PRN IV PUSH 02/27/17 22:30 (Protonix) 40 mg DAILY PO 02/28/17 09:00 03/03/17 07:58 (Miralax) 17 gm DAILY PO 03/01/17 09:00 03/03/17 07:58 (Carafate) 1 gm TID PO 02/28/17 13:00 03/03/17 07:58 Miscellaneous Information 1 Q3D T-DERMAL 03/02/17 12:00 (Tylenol) 650 mg Q6H PRN PO 02/28/17 13:15 03/01/17 16:18 ([place] 5-325 Mg) 1 tab Q4H PRN PO 02/28/17 13:15 03/03/17 10:02 (Morphine Inj) 2 mg Q2H PRN IV PUSH 02/28/17 13:15 03/03/17 12:10 (Zofran Inj) 4 mg Q6H PRN IV PUSH 02/28/17 13:15 (Albuterol Neb) 2.5 mg Q2HR NEB PRN INH 02/28/17 13:15 Miscellaneous Information 1 Q361D XX 02/28/17 13:15 02/28/17 13:15 (Chlorhexidine 2% Cloth) 3 pack Taper DAILY@04 TOP 03/01/17 04:00 02/25/18 03:59 03/03/17 04:00 (Chlorhexidine 2% Cloth) 3 pack UNSCH PRN TOP 02/28/17 13:15 (Jacqueline-Colace) 1 tab BID PO 02/28/17 21:00 03/03/17 07:58 (Milk Of Magnesia Liq) 30 ml Q12H PRN PO 02/28/17 13:15 (Senokot) 17.2 mg Q12H PRN PO 02/28/17 13:15 (Dulcolax Supp) 10 mg DAILY PRN RECTAL 02/28/17 13:15 (Lactulose Liq) 30 ml DAILY PRN PO 02/28/17 13:15 (D50w (Vial) Inj) 50 ml UNSCH PRN IV PUSH 02/28/17 13:15 (Glucagon Inj) 1 mg UNSCH PRN OTHER 02/28/17 13:15 (NovoLIN R SUPPLEMENTAL SCALE) 1 ACHS SLIDING SCALE SQ 02/28/17 17:00 03/01/17 21:00 Dopamine HCl 1600 mg/Dextrose 250 ml @ 1.85 mls/hr TITRATE PRN IV 02/28/17 13:30 (Brethine Inj) 1 mg UNSCH PRN SQ 02/28/17 13:30 (Bactroban Nasal 2% Oint) 1 applic Taper BID EACH NARE 03/01/17 21:00 02/25/18 20:59 03/03/17 07:58 (Coreg) 12.5 mg Q12HR PO 03/01/17 21:00 03/02/17 08:52 Vital Signs / I&O Vital Signs Date Time Temp Pulse Resp B/P (MAP) Pulse Ox O2 Delivery O2 Flow Rate FiO2 03/03/17 11:13 18 03/03/17 10:00 86 03/03/17 08:46 98 Nasal Cannula 2.00 03/03/17 08:09 21 03/03/17 08:00 67 03/03/17 08:00 97.7 67 19 142/76 (98) 99 03/03/17 07:00 97 Nasal Cannula 2.00 03/03/17 06:00 41 03/03/17 04:00 55 03/03/17 04:00 98.2 55 18 124/59 (80) 97 03/03/17 02:58 62 03/03/17 02:00 109 03/03/17 00:00 50 03/03/17 00:00 98.3 50 21 122/63 (82) 95 03/02/17 22:00 79 03/02/17 20:00 79 03/02/17 20:00 98.1 79 20 168/76 (106) 97 03/02/17 19:08 99 Nasal Cannula 2.00 03/02/17 19:00 99 Nasal Cannula 2.00 03/02/17 17:00 48 14 145/69 (94) 97 03/02/17 16:05 61 12 131/70 (90) 97 03/02/17 16:00 98.1 66 15 143/67 (92) 97 03/02/17 15:01 57 20 143/69 (93) 97 03/02/17 14:00 77 22 176/95 (122) 98 03/02/17 13:00 77 22 154/72 (99) 96 I/O 03/02/17 03/02/17 03/02/17 03/03/17 03/03/17 03/03/17 07:00 15:00 23:00 07:00 15:00 23:00 Intake Total 505 ml 622 ml 450 ml Output Total 1150 ml 1250 ml 600 ml Balance -645 ml -628 ml -150 ml Intake Oral 480 ml 600 ml 450 ml IV Total 25 ml 22 ml Output Urine Total 1150 ml 1250 ml 600 ml # Bowel Movements 0 0 Physical Exam GENERAL: NAD, AAOx3 SKIN: Warm and dry. HEAD: Atraumatic. Normocephalic. EYES: Pupils equal and round. No scleral icterus. No injection or drainage. Right eye with ecchymosis from previous fall ENT: No nasal bleeding or discharge. Mucous membranes pink and moist. NECK: Trachea midline. No JVD. CARDIOVASCULAR: Regular rate and rhythm. RESPIRATORY: No accessory muscle use. Decreased breath sounds bilaterally GASTROINTESTINAL: Abdomen soft, non-tender, nondistended. Hepatic and splenic margins not palpable. MUSCULOSKELETAL: Extremities without clubbing, cyanosis, or edema. No obvious deformities. NEUROLOGICAL: Awake and alert. No obvious cranial nerve deficits. Motor grossly within normal limits. Five out of 5 muscle strength in the arms and legs. Normal speech. PSYCHIATRIC: Appropriate mood and affect; insight and judgment normal. Laboratory Laboratory Tests Test 03/03/17 03:35 White Blood Count 4.0 TH/MM3 Red Blood Count 3.08 MIL/MM3 Hemoglobin 9.3 GM/DL Hematocrit 27.7 % Mean Corpuscular Volume 89.8 FL Mean Corpuscular Hemoglobin 30.2 PG Mean Corpuscular Hemoglobin Concent 33.7 % Red Cell Distribution Width 19.4 % Platelet Count 96 TH/MM3 Mean Platelet Volume 8.9 FL Activated Partial Thromboplast Time 43.9 SEC Blood Urea Nitrogen 54 MG/DL Creatinine 2.50 MG/DL Random Glucose 84 MG/DL Calcium Level 9.8 MG/DL Phosphorus Level 3.5 MG/DL Magnesium Level 1.8 MG/DL Sodium Level 136 MEQ/L Potassium Level 4.0 MEQ/L Chloride Level 102 MEQ/L Carbon Dioxide Level 24.8 MEQ/L Anion Gap 9 MEQ/L Estimat Glomerular Filtration Rate 19 ML/MIN Assessment and Plan Problem List: (1) NSTEMI (non-ST elevated myocardial infarction) ICD Codes: I21.4 - Non-ST elevation (NSTEMI) myocardial infarction (2) H/O ventricular fibrillation ICD Codes: Z86.79 - Personal history of other diseases of the circulatory system (3) Paroxysmal A-fib ICD Codes: I48.0 - Paroxysmal atrial fibrillation (4) Systolic CHF ICD Codes: I50.20 - Unspecified systolic (congestive) heart failure (5) Acute kidney injury ICD Codes: N17.9 - Acute kidney failure, unspecified (6) Hypoxia ICD Codes: R09.02 - Hypoxemia (7) CAD (coronary artery disease) ICD Codes: I25.10 - Atherosclerotic heart disease of [place] coronary artery without angina pectoris (8) Anemia ICD Codes: D64.9 - Anemia, unspecified Assessment and Plan 1) Concern with NSTEMI, history of V.Fib arrest, history of pulmonary edema and ST depressions Discussed extensively with the patient and her about consideration of cardiac catheterization, including risk, benefits and alternatives They would like to try to avoid and continue medical management due to 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 Meier and critical care nurse Problem Qualifiers (1) Anemia: Luis Enrique Willard DO Mar 03, 2017 12:21
--- NOTE | 2017-03-03 13:15 | HHI.NPPN ---
Subjective History of Present Illness 76 y/o female with a PMH that includes A fib/flutter on chronic Coumadin, HTN, hyperlipidemia, CAD/ischemic cardiomyopathy. She also has CKD 4. In October she was seen in [place] ER with acute hyperkalemia and suffered cardiac arrest. She did survive, was on the ventilator for prolonged period with a trach, eventually weened off the vent and trach, and [facility]. The patient had to be dialyzed emergently in October due to hyperkalemia. Additional Remarks Patient is comfortable. She appears to have decided against cardiac catheterization. Review of Systems General Constitutional: Fatigue Cardiovascular Cardiac: Edema, SNYDER Objective Data Data Vital Signs Date Time Temp Pulse Resp B/P (MAP) Pulse Ox O2 Delivery O2 Flow Rate FiO2 03/03/17 12:15 15 03/03/17 11:13 18 03/03/17 10:00 86 03/03/17 08:46 98 Nasal Cannula 2.00 03/03/17 08:00 67 03/03/17 08:00 97.7 67 19 142/76 (98) 99 03/03/17 07:00 97 Nasal Cannula 2.00 03/03/17 06:00 41 03/03/17 04:00 55 03/03/17 04:00 98.2 55 18 124/59 (80) 97 03/03/17 02:58 62 03/03/17 02:00 109 03/03/17 00:00 50 03/03/17 00:00 98.3 50 21 122/63 (82) 95 03/02/17 22:00 79 03/02/17 20:00 79 03/02/17 20:00 98.1 79 20 168/76 (106) 97 03/02/17 19:08 99 Nasal Cannula 2.00 03/02/17 19:00 99 Nasal Cannula 2.00 03/02/17 17:00 48 14 145/69 (94) 97 03/02/17 16:05 61 12 131/70 (90) 97 03/02/17 16:00 98.1 66 15 143/67 (92) 97 03/02/17 15:01 57 20 143/69 (93) 97 03/02/17 14:00 77 22 176/95 (122) 98 -: 03/03/17 03303/03/17 033 Physical Exam General Appearance: No Acute Distress, Comfortable Eyes Eye Exam: Pupils Equal Throat Throat Exam: Oral Mucosa [place] & Moist Pulmonary Resp Exam: Breath Sounds Equal, No Distress, Rhonchi, Decreased Bases Cardiology CV Exam: Regular Gastrointestinal/Abdomen GI Exam: Soft, Non-Tender, Bowel Sounds Present Neurologic Neuro Exam: Alert, Awake Assessment/Plan Problem List: (1) Stage 4 chronic kidney disease ICD Codes: N18.4 - Chronic kidney disease, stage 4 (severe) Plan: Last HD was 02/12; PermCath was removed She is non oliguric No need for dialysis at this time. Now her renal function is at baseline Attempt to avoid nephrotoxic agents, use minimal dye if catheterization is required (2) NSTEMI (non-ST elevated myocardial infarction) ICD Codes: I21.4 - Non-ST elevation (NSTEMI) myocardial infarction Plan: Cardiology following On heparin Gtt (3) Anemia in chronic renal disease ICD Codes: N18.9 - Chronic kidney disease, unspecified; D63.1 - Anemia in chronic kidney disease Status: Chronic Plan: Give a dose of epogen today. (4) Paroxysmal A-fib ICD Codes: I48.0 - Paroxysmal atrial fibrillation Plan: Coumadin to be restarted. Zoran Shipman MD Mar 03, 2017 13:15
--- NOTE | 2017-03-03 17:48 | HHI.CCPN ---
Subjective Remarks/Hospital Course This is a 76-year-old female. Date of admission 02/27/2017. Date of consultation 02/28/2017. Past medical history includes coronary disease with history of 4 stents in 2001 2003, chronic systolic heart failure ejection fraction 40%, hypertension, anemia of chronic disease, chronic low back pain secondary spell stenosis requiring an implanted morphine intrathecal pump, history history of V. fib arrest,/pulmonary edema and hypoxic respiratory failure resulting in likely anoxic encephalopathy, gastritis and external hemorrhoids. Her recent significant history includes an episode of hyperkalemia with potassium of 7.8 leading to ventricular arrest with admission to [facility] on 11/14/16. She was placed on a ventilator and developed sepsis and pneumonia complications. She was discharged with trach and PEG to [facility] in [place] on 11/26/16 under the care of Dr. Bermudez. The patient was transferred to [facility] on 01/23/17 following trach decannulation. She was transferred to [facility] for hypoxic respiratory distress 02/03/17 and required intubation. EGD and colonoscopy performed due to anemia with findings of gastritis, diverticulosis, and 2 large external hemorrhoids. Arrest her status improved and she was extubated, PEG was removed as she was nutritionally improving, she began to make urine and was sent back to [facility] on 02/13/17. She has been suffering from residual anoxic encephalopathy and is a poor historian as a result. On 02/27/17, she was anticipating discharge from [facility] as she had met her goals. Her Port-A-Cath was removed by IR on the . She was also having some left sided chest pain related to Vas cath removal. She indicates she has not required dialysis for 3 weeks. The patient relates her symptoms to anxiety. Denies shortness of breath with ambulation, nausea, vomiting, diaphoresis, diarrhea, black or red stool, dysuria, hematuria, dizziness, or syncope. Her outpatient shine worker is Dr. Montaño in [place]. She reports that in October, she had an abnormal nuclear stress test and was told that one of her arteries was "clogged". At that time, according to the patient, her shine worker would not perform a cardiac catheterization due to poor renal function. Today, patient had episode of right-sided chest pain. This was thought to be of muscle skeletal nature. A fentanyl patch was placed and patient became more hypoxic secondary to strain causing part ischemia resulting in flash pulmonary edema. She was placed on BiPAP and given 1 dose of oral bumetanide and transferred to room 526. Subjective 03/01: Bradycardia is resolved. Being transfused 2 units per cc per cardiology. Abnormal CAT scan chest noted. Family requests Dr. King to see 03/02: No acute events overnight. Today patient went 8 blood or with 3-1 conduction, with self resolution. Dynamically stable systolic blood pressure 170s denies chest pain at this time. 03/03: No acute events overnight. No immediate plans for cardiac catheterization , secondary to multiple comorbidities at this time Objective Vital Signs Date Time Temp Pulse Resp B/P (MAP) Pulse Ox O2 Delivery O2 Flow Rate FiO2 03/03/17 17:32 19 03/03/17 16:00 51 03/03/17 16:00 97.8 113/54 (73) 97 03/03/17 08:46 Nasal Cannula 2.00 03/02/17 01:15 35 Intake and Output 03/03/17 03/03/17 03/04/17 08:00 16:00 00:00 Intake Total 450 ml 23 ml Output Total 600 ml Balance -150 ml 23 ml Result Diagram: 03/03/17 0335 03/03/17 0335 Other Results Microbiology Date/Time Source Procedure Growth Status 02/28/17 18:15 Urine Catheterized Urine Urine Culture - Final NO GROWTH IN 48 HOURS. Complete Imaging Last Impressions Chest CT 03/01/17 0000 Signed Impressions: Service Date/Time: Wednesday, March 01, 2017 11:07 - CONCLUSION: 1. Numerous bilateral subcentimeter pulmonary nodules concerning for metastatic disease. 2. Small bilateral pleural effusions and scattered groundglass densities could be infiltrate. 3. Coronary artery calcifications. Jean Paul Arvizu MD Abdomen/Pelvis CT 03/01/17 0000 Signed Impressions: Service Date/Time: Wednesday, March 01, 2017 11:07 - CONCLUSION: 1. Diverticulosis without diverticulitis. 2. Status post cholecystectomy. 3. Atrophic kidneys. 4. No mass or adenopathy. Jean Paul Arvizu MD Chest X-Ray 02/28/17 0000 Signed Impressions: Service Date/Time: Tuesday, February 28, 2017 13:02 - CONCLUSION: 1. Probable CHF. Duy Chen MD Objective Remarks GENERAL: This is a 76-year-old female, resting in bed on nasal cannula in no acute distress SKIN: Warm and dry. Well perfused HEAD: Atraumatic. Normocephalic. EYES: Pupils equal and round about 3 mm bilaterally and reactive. No scleral icterus. No injection or drainage. ENT: No nasal bleeding or discharge. Mucous membranes pink and moist. NECK: Trachea midline. No JVD. CARDIOVASCULAR: Regular rate and rhythm. S1, S2. No S4. Without murmur RESPIRATORY: To crackles appreciated in bases bilaterally. Symmetrical excursion.. GASTROINTESTINAL: Abdomen soft, distended. Hypoactive bowel sounds are appreciated. MUSCULOSKELETAL: Extremities with trace bilateral lower extremity edema. No obvious deformities. Left permacath removed with Steri-Strips old blood. Right Port-A-Cath is clean dry and intact without erythema NEUROLOGICAL: Awake and alert. No obvious cranial nerve deficits. Motor grossly within normal limits. 5/5 muscle strength in the arms and legs. Normal speech. 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 Anxiety Currently on quetiapine 100 Mg Twice a Day Fentanyl patch 50 g every 72 hours. Acetaminophen for fever Hydrocodone/acetaminophen 5/325 one tablet every 4 hours when necessary pain 1- 5 and morphine sulfate 2 mg IV every 2 hours. Pain 6-10 CV: Bradycardia - resolved Chest pain History of V. fib arrest secondary to hyperkalemia Chronic systolic heart failure ejection fraction 40% Coronary disease status post stent 4 Hypertension History of paroxysmal atrial fibrillation currently in first-degree AV block Followed by cardiology/Dr. Willard. Plan for cardiac catheterization possibly when stabilized Serial troponins EKG revealed first-degree AV block. ST-T depression in the inferior and lateral leads. Patient has a known ejection fraction 40-45%. Pulmonary artery pressures around 44 mmHg Currently on aspirin 81 mg daily On amiodarone 200 mg by mouth daily currently and hydralazine 100 mg every 8 hours, Isordil dinitrate 40 mg twice a day, carvedilol 12.5 mg twice a day and diltiazem 120 mg daily. Carvedilol initiated 03/02 and hold diltiazem today Pacer plans in place. Dopamine if needed Continue aspirin 81 mg daily Bumetanide 1 mg daily 03/03 plans to transition to Coumadin Resp: Acute respiratory failure Currently on nasal cannula to maintain saturations greater than or equal to 92% Incentive spirometry while awake Follow-up on chest x-ray Follow-up ABG and chest x-ray CT thorax reveals small bilateral pleural effusions, groundglass opacities and subcentimeter pulmonary nodules. Pulmonology consulted , Dr. Collins GI: Gastritis/history of gastric ulcer External hemorrhoids Hypoalbuminemia Patient is currently nothing by mouth except for medications Pantoprazole for GI prophylaxis Sucralfate 1 g 3 times a day history of gastric ulcers. On polyethylene glycol 17 g daily with constipation along with our bowel regimen docusate/senna 1 tablet twice a day : Olson catheter if indicated for accurate I's and O's in a critically ill patient Endo: Hyperglycemia History of partial thyroidectomy/parathyroidectomy Sliding-scale insulin with Accu-Cheks before meals/at bedtime to maintain euglycemia moderate regimen with Novulin R Renal: Chronic kidney disease stage IV. Recently Receiving hemodialysis Friday/ Friday/Friday with Dr. Shipman Nephrology actively following. Creatinine currently 2.58, and elevation patient received additional doses of diuretics secondary to blood transfusion on 03/01 Repeat BMP in a.m. Heme: Anemia of chronic kidney disease Elevated INR/PTT Chronic warfarin use Leukopenia Anemia Thrombocytopenia Follow-up CBC coags in a.m. Heparin drip to be continued. 03/01 Transfused 2 units PRBCs per cardiology's request ID: Monitor for infection FEN: Replace electrolytes as clinically indicated MSK: PT evaluate and treat Access - Utilize right Port-A-Cath. Prophylaxis - GI - pantoprazole - DVT - SCD/heparin drip Dispo: Level 3 Discussed with MACHINE DESIGN TEACHER at bedside (Della) and Dr. Willard Physician Sharon Alvares MD Mar 03, 2017 17:48
--- NOTE | 2017-03-03 18:15 | HHI.PR ---
Subjective Remarks NO ACUTE DISTRESS ON O2 THERAPY Objective Vital Signs Date Time Temp Pulse Resp B/P (MAP) Pulse Ox O2 Delivery O2 Flow Rate FiO2 03/03/17 18:00 54 03/03/17 17:32 19 03/03/17 16:00 51 03/03/17 16:00 97.8 51 17 113/54 (73) 97 03/03/17 14:00 79 03/03/17 12:00 98.0 52 23 131/61 (84) 92 03/03/17 12:00 52 03/03/17 11:13 18 03/03/17 10:00 86 03/03/17 08:46 98 Nasal Cannula 2.00 03/03/17 08:00 67 03/03/17 08:00 97.7 67 19 142/76 (98) 99 03/03/17 07:00 97 Nasal Cannula 2.00 03/03/17 06:00 41 03/03/17 04:00 55 03/03/17 04:00 98.2 55 18 124/59 (80) 97 03/03/17 02:58 62 03/03/17 02:00 109 03/03/17 00:00 50 03/03/17 00:00 98.3 50 21 122/63 (82) 95 03/02/17 22:00 79 03/02/17 20:00 79 03/02/17 20:00 98.1 79 20 168/76 (106) 97 03/02/17 19:08 99 Nasal Cannula 2.00 03/02/17 19:00 99 Nasal Cannula 2.00 I/O 03/02/17 03/02/17 03/02/17 03/03/17 03/03/17 03/03/17 06:59 14:59 22:59 06:59 14:59 22:59 Intake Total 505 ml 622 ml 450 ml 773 ml Output Total 1150 ml 1250 ml 600 ml 1000 ml Balance -645 ml -628 ml -150 ml -227 ml Intake Oral 480 ml 600 ml 450 ml 750 ml IV Total 25 ml 22 ml 23 ml Output Urine Total 1150 ml 1250 ml 600 ml 1000 ml # Bowel Movements 0 0 0 Result Diagram: 03/03/1733403/03/17334 Objective Remarks GENERAL: SKIN: Warm and dry. HEAD: Atraumatic. Normocephalic. EYES: Pupils equal and round. No scleral icterus. No injection or drainage. ENT: No nasal bleeding or discharge. Mucous membranes pink and moist. NECK: Trachea midline. No JVD. CARDIOVASCULAR: Regular rate and rhythm. RESPIRATORY: No accessory muscle use. Clear to auscultation. Breath sounds equal bilaterally. GASTROINTESTINAL: Abdomen soft, non-tender, nondistended. Hepatic and splenic margins not palpable. MUSCULOSKELETAL: Extremities without clubbing, cyanosis, or edema. No obvious deformities. NEUROLOGICAL: Awake and alert. No obvious cranial nerve deficits. Motor grossly within normal limits. Five out of 5 muscle strength in the arms and legs. Normal speech. PSYCHIATRIC: Appropriate mood and affect; insight and judgment normal. Assessment and Plan Assessment and Plan BILATERAL LUNG NODULES CAD PLAN BRONCHOSCOPY WHEN ON MED [facility] Karina Collins MD Mar 03, 2017 18:15
[2017-03-04] VITALS (13 sets, daily range): BP systolic 116–163; BP diastolic 56–85; PULSE 45–77; RESP 12–20; TEMP 97–98.2; O2SAT 96–98
[2017-03-04] MEDS: MORPHINE SULFATE 4 MG/ML INJ IV PUSH PRN ×5 (04:34→21:26)
[2017-03-04] MEDS: hydrALAZINE HCL 100 MG TAB PO SCH ×3 (05:32→21:25)
--- NOTE | 2017-03-04 07:45 | HHI.NPPN ---
Subjective History of Present Illness 76 y/o female with a PMH that includes A fib/flutter on chronic Coumadin, HTN, hyperlipidemia, CAD/ischemic cardiomyopathy. She also has CKD 4. In October she was seen in [place] ER with acute hyperkalemia and suffered cardiac arrest. She did survive, was on the ventilator for prolonged period with a trach, eventually weened off the vent and trach, and transferred to [facility] and later to [facility]. The patient had to be dialyzed emergently in October due to hyperkalemia. Additional Remarks patient is comfortable. No respiratory distress is noted. Review of Systems General Constitutional: Fatigue Cardiovascular Cardiac: Edema, SNYDER Objective Data Data Vital Signs Date Time Temp Pulse Resp B/P (MAP) Pulse Ox O2 Delivery O2 Flow Rate FiO2 03/04/17 06:00 57 03/04/17 04:00 63 03/04/17 04:00 97.4 63 20 134/63 (86) 97 03/04/17 02:00 55 03/04/17 00:00 98.2 63 16 163/77 (105) 98 03/04/17 00:00 63 03/03/17 22:00 59 03/03/17 21:53 17 03/03/17 20:19 96 Nasal Cannula 2.00 03/03/17 20:00 67 03/03/17 20:00 97.6 67 17 165/83 (110) 97 03/03/17 19:00 97 Nasal Cannula 2.00 03/03/17 18:00 54 03/03/17 16:00 51 03/03/17 16:00 97.8 51 17 113/54 (73) 97 03/03/17 14:00 79 03/03/17 12:00 98.0 52 23 131/61 (84) 92 03/03/17 12:00 52 03/03/17 11:13 18 03/03/17 10:00 86 03/03/17 08:46 98 Nasal Cannula 2.00 03/03/17 08:00 67 03/03/17 08:00 97.7 67 19 142/76 (98) 99 -: 03/03/17 0335 03/03/17 0335 Physical Exam General Appearance: No Acute Distress, Comfortable Eyes Eye Exam: Pupils Equal Throat Throat Exam: Oral Mucosa [place] & Moist Pulmonary Resp Exam: Clear Bilaterally, Breath Sounds Equal, No Distress Cardiology CV Exam: Regular Gastrointestinal/Abdomen GI Exam: Soft, Non-Tender, Bowel Sounds Present Neurologic Neuro Exam: Alert, Awake Assessment/Plan Problem List: (1) Stage 4 chronic kidney disease ICD Codes: N18.4 - Chronic kidney disease, stage 4 (severe) Plan: Last HD was 02/12; PermCath was removed She is non oliguric No need for dialysis at this time. Labs are pending this morning. Now her renal function is at baseline Attempt to avoid nephrotoxic agents. She has decided against cardiac catheterization. (2) NSTEMI (non-ST elevated myocardial infarction) ICD Codes: I21.4 - Non-ST elevation (NSTEMI) myocardial infarction Plan: Cardiology following On heparin Gtt (3) Anemia in chronic renal disease ICD Codes: N18.9 - Chronic kidney disease, unspecified; D63.1 - Anemia in chronic kidney disease Status: Chronic Plan: Epogen can be given intermittently. (4) Paroxysmal A-fib ICD Codes: I48.0 - Paroxysmal atrial fibrillation Plan: Coumadin to be restarted. Plan Remove Olson catheter. Zoran Shipman MD Mar 04, 2017 07:45
[2017-03-04] MEDS: INSULIN NovoLIN REGULAR SUPPLEMENTAL SCALE SQ SCH ×4 (08:00→21:00)
[2017-03-04] MEDS: MUPIROCIN 2% OINT 1 APPLIC/GM SYR EACH NARE SCH ×2 (08:11→21:25)
[2017-03-04] MEDS: QUEtiapine FUMARATE 100 MG TAB PO SCH ×2 (08:11→21:25)
[2017-03-04] MEDS: POLYETHYLENE GLYCOL 17 GM PKG PO SCH (08:11)
[2017-03-04] MEDS: ISOSORBIDE DINITRATE 40 MG SUSTAINED RELEASE TAB PO SCH ×2 (08:11→13:01)
[2017-03-04] MEDS: AMIODARONE 200 MG TAB PO SCH (08:11)
[2017-03-04] MEDS: SUCRALFATE 1 GM TAB PO SCH ×3 (08:11→17:32)
[2017-03-04] MEDS: PANTOPRAZOLE SOD 40 MG DELAYED RELEASE TAB PO SCH (08:11)
[2017-03-04] MEDS: ASPIRIN 81 MG CHEW TAB CHEW SCH (08:11)
[2017-03-04] MEDS: DOCUSATE SODIUM 50 MG/SENNA 8.6 MG TAB PO SCH ×2 (08:11→21:25)
[2017-03-04] MEDS: BUMETANIDE 1 MG TAB PO SCH (08:11)
[2017-03-04] MEDS: CARVEDILOL 12.5 MG TAB PO SCH ×2 (08:11→21:25)
[2017-03-04] MEDS: SODIUM CHLORIDE 0.9% FLUSH 10 ML FLUSH IV FLUSH SCH ×2 (08:12→21:26)
[2017-03-04] MEDS: CALCITONIN SALM 200 UNIT/SPRAY 3.7 ML BTLN NASAL SCH (08:26)
[2017-03-04 08:57] LABS: APTT (PATIENT) 38.9 SEC (24.3-30.1)
--- NOTE | 2017-03-04 09:05 | HHI.PR ---
Subjective Remarks NO ACUTE DISTRESS ON O2 THERAPY sitting at bedside Objective Vital Signs Date Time Temp Pulse Resp B/P (MAP) Pulse Ox O2 Delivery O2 Flow Rate FiO2 03/04/17 08:47 24 03/04/17 07:00 97 Nasal Cannula 2.00 03/04/17 06:00 57 03/04/17 04:00 63 03/04/17 04:00 97.4 63 20 134/63 (86) 97 03/04/17 02:00 55 03/04/17 00:00 98.2 63 16 163/77 (105) 98 03/04/17 00:00 63 03/03/17 22:00 59 03/03/17 20:19 96 Nasal Cannula 2.00 03/03/17 20:00 67 03/03/17 20:00 97.6 67 17 165/83 (110) 97 03/03/17 19:00 97 Nasal Cannula 2.00 03/03/17 18:00 54 03/03/17 16:00 51 03/03/17 16:00 97.8 51 17 113/54 (73) 97 03/03/17 14:00 79 03/03/17 12:00 98.0 52 23 131/61 (84) 92 03/03/17 12:00 52 03/03/17 11:13 18 03/03/17 10:00 86 I/O 03/03/17 03/03/17 03/03/17 03/04/17 03/04/17 03/04/17 07:00 15:00 23:00 07:00 15:00 23:00 Intake Total 450 ml 773 ml 300 ml Output Total 600 ml 1000 ml 700 ml Balance -150 ml -227 ml -400 ml Intake Oral 450 ml 750 ml 300 ml IV Total 23 ml Output Urine Total 600 ml 1000 ml 700 ml # Bowel Movements 0 0 Result Diagram: 03/03/1733403/03/17334 Objective Remarks GENERAL: SKIN: Warm and dry. HEAD: Atraumatic. Normocephalic. EYES: Pupils equal and round. No scleral icterus. No injection or drainage. ENT: No nasal bleeding or discharge. Mucous membranes pink and moist. NECK: Trachea midline. No JVD. CARDIOVASCULAR: Regular rate and rhythm. RESPIRATORY: No accessory muscle use. Clear to auscultation. Breath sounds equal bilaterally. GASTROINTESTINAL: Abdomen soft, non-tender, nondistended. Hepatic and splenic margins not palpable. MUSCULOSKELETAL: Extremities without clubbing, cyanosis, or edema. No obvious deformities. NEUROLOGICAL: Awake and alert. No obvious cranial nerve deficits. Motor grossly within normal limits. Five out of 5 muscle strength in the arms and legs. Normal speech. PSYCHIATRIC: Appropriate mood and affect; insight and judgment normal. Assessment and Plan Assessment and Plan BILATERAL LUNG NODULES CAD PLAN BRONCHOSCOPY WHEN ON MED FLOOR Karina Collins MD Mar 04, 2017 09:05
[2017-03-04] MEDS: HEPARIN SODIUM - IV 10,000 UNITS/10 ML VIAL IV PUSH PRN (09:11)
[2017-03-04 09:34] LABS: BICARBONATE 25.1 MEQ/L (21.0-32.0)
--- NOTE | 2017-03-04 11:14 | PD.CARD.PN ---
Subjective Subjective Remarks Patient with right sided rib pain, increased with palpation... feels better today after morphine Unsure if she hit her ribs with her fall while in rehab Denies chest pain Feels she is breathing better Objective Medications Current Medications Medications (Trade) Dose Ordered Sig/Yue Route Start Time Stop Time Status Last Admin (NS Flush) 2 ml UNSCH PRN IV FLUSH 02/27/17 21:30 (NS Flush) 2 ml BID IV FLUSH 02/28/17 09:00 03/04/17 08:12 (Narcan Inj) 0.4 mg UNSCH PRN IV PUSH 02/27/17 21:30 (Xanax) 0.25 mg Q8H PRN PO 02/27/17 21:45 03/02/17 22:33 (Cordarone) 200 mg DAILY PO 02/28/17 09:00 03/04/17 08:11 (Aspirin Chew) 81 mg DAILY CHEW 02/28/17 09:00 03/04/17 08:11 (Bumetanide) 1 mg DAILY PO 02/28/17 09:00 03/04/17 08:11 (Cardizem) 30 mg Q6HR PO 02/28/17 00:00 Future Hold 02/28/17 07:00 (Duragesic 50 Mcg Patch.72 Hr) 1 patch Q72H T-DERMAL 03/02/17 12:00 03/02/17 12:53 (Apresoline) 100 mg Q8HR PO 02/27/17 22:00 03/04/17 05:32 (Isordil Tembids Cr) 40 mg BID@08,14 PO 02/28/17 08:00 03/04/17 08:11 (SEROquel) 100 mg BID PO 02/28/17 09:00 03/04/17 08:11 Heparin Sodium/ Dextrose 250 ml @ 8 mls/hr TITRATE PRN IV 02/27/17 22:30 Future hold 03/02/17 09:55 (Heparin Inj) 5,000 units UNSCH PRN IV PUSH 02/27/17 22:30 (Heparin Inj) 2,500 units UNSCH PRN IV PUSH 02/27/17 22:30 03/04/17 09:11 (Protonix) 40 mg DAILY PO 02/28/17 09:00 03/04/17 08:11 (Miralax) 17 gm DAILY PO 03/01/17 09:00 03/04/17 08:11 (Carafate) 1 gm TID PO 02/28/17 13:00 03/04/17 08:11 Miscellaneous Information 1 Q3D T-DERMAL 03/02/17 12:00 (Tylenol) 650 mg Q6H PRN PO 02/28/17 13:15 03/01/17 16:18 ([place]den 5-325 Mg) 1 tab Q4H PRN PO 02/28/17 13:15 03/03/17 10:02 (Morphine Inj) 2 mg Q2H PRN IV PUSH 02/28/17 13:15 03/04/17 08:10 (Zofran Inj) 4 mg Q6H PRN IV PUSH 02/28/17 13:15 (Albuterol Neb) 2.5 mg Q2HR NEB PRN INH 02/28/17 13:15 Miscellaneous Information 1 Q361D XX 02/28/17 13:15 02/28/17 13:15 (Chlorhexidine 2% Cloth) 3 pack Taper DAILY@04 TOP 03/01/17 04:00 02/25/18 03:59 03/03/17 04:00 (Chlorhexidine 2% Cloth) 3 pack UNSCH PRN TOP 02/28/17 13:15 (Jacqueline-Colace) 1 tab BID PO 02/28/17 21:00 03/04/17 08:11 (Milk Of Magnesia Liq) 30 ml Q12H PRN PO 02/28/17 13:15 (Senokot) 17.2 mg Q12H PRN PO 02/28/17 13:15 (Dulcolax Supp) 10 mg DAILY PRN RECTAL 02/28/17 13:15 (Lactulose Liq) 30 ml DAILY PRN PO 02/28/17 13:15 (D50w (Vial) Inj) 50 ml UNSCH PRN IV PUSH 02/28/17 13:15 (Glucagon Inj) 1 mg UNSCH PRN OTHER 02/28/17 13:15 (NovoLIN R SUPPLEMENTAL SCALE) 1 ACHS SLIDING SCALE SQ 02/28/17 17:00 03/03/17 12:00 Dopamine HCl 1600 mg/Dextrose 250 ml @ 1.85 mls/hr TITRATE PRN IV 02/28/17 13:30 (Brethine Inj) 1 mg UNSCH PRN SQ 02/28/17 13:30 (Bactroban Nasal 2% Oint) 1 applic Taper BID EACH NARE 03/01/17 21:00 02/25/18 20:59 03/04/17 08:11 (Coreg) 12.5 mg Q12HR PO 03/01/17 21:00 03/04/17 08:11 Vital Signs / I&O Vital Signs Date Time Temp Pulse Resp B/P (MAP) Pulse Ox O2 Delivery O2 Flow Rate FiO2 03/04/17 10:00 71 03/04/17 08:47 24 03/04/17 08:00 97.8 45 15 144/66 (92) 98 03/04/17 08:00 45 03/04/17 07:00 97 Nasal Cannula 2.00 03/04/17 06:00 57 03/04/17 04:00 63 03/04/17 04:00 97.4 63 20 134/63 (86) 97 03/04/17 02:00 55 03/04/17 00:00 98.2 63 16 163/77 (105) 98 03/04/17 00:00 63 03/03/17 22:00 59 03/03/17 20:19 96 Nasal Cannula 2.00 03/03/17 20:00 67 03/03/17 20:00 97.6 67 17 165/83 (110) 97 03/03/17 19:00 97 Nasal Cannula 2.00 03/03/17 18:00 54 03/03/17 16:00 51 03/03/17 16:00 97.8 51 17 113/54 (73) 97 03/03/17 14:00 79 03/03/17 12:00 98.0 52 23 131/61 (84) 92 03/03/17 12:00 52 I/O 03/03/17 03/03/17 03/03/17 03/04/17 03/04/17 03/04/17 07:00 15:00 23:00 07:00 15:00 23:00 Intake Total 450 ml 773 ml 300 ml 250 ml Output Total 600 ml 1000 ml 700 ml 350 ml Balance -150 ml -227 ml -400 ml -100 ml Intake Oral 450 ml 750 ml 300 ml 250 ml IV Total 23 ml Output Urine Total 600 ml 1000 ml 700 ml 350 ml # Bowel Movements 0 0 Physical Exam GENERAL: NAD, AAOx3 SKIN: Warm and dry. HEAD: Atraumatic. Normocephalic. EYES: Pupils equal and round. No scleral icterus. No injection or drainage. Right eye with ecchymosis from previous fall ENT: No nasal bleeding or discharge. Mucous membranes pink and moist. NECK: Trachea midline. No JVD. CARDIOVASCULAR: Regular rate and rhythm. RESPIRATORY: No accessory muscle use. Decreased breath sounds bilaterally GASTROINTESTINAL: Abdomen soft, non-tender, nondistended. Hepatic and splenic margins not palpable. MUSCULOSKELETAL: Extremities without clubbing, cyanosis, or edema. No obvious deformities. NEUROLOGICAL: Awake and alert. No obvious cranial nerve deficits. Motor grossly within normal limits. Five out of 5 muscle strength in the arms and legs. Normal speech. PSYCHIATRIC: Appropriate mood and affect; insight and judgment normal. Laboratory Laboratory Tests Test 03/04/17 08:15 Activated Partial Thromboplast Time 38.9 SEC Blood Urea Nitrogen 49 MG/DL Creatinine 2.32 MG/DL Random Glucose 87 MG/DL Calcium Level 9.8 MG/DL Sodium Level 135 MEQ/L Potassium Level 4.0 MEQ/L Chloride Level 100 MEQ/L Carbon Dioxide Level 25.1 MEQ/L Anion Gap 10 MEQ/L Estimat Glomerular Filtration Rate 21 ML/MIN Assessment and Plan Problem List: (1) NSTEMI (non-ST elevated myocardial infarction) ICD Codes: I21.4 - Non-ST elevation (NSTEMI) myocardial infarction (2) H/O ventricular fibrillation ICD Codes: Z86.79 - Personal history of other diseases of the circulatory system (3) Paroxysmal A-fib ICD Codes: I48.0 - Paroxysmal atrial fibrillation (4) Systolic CHF ICD Codes: I50.20 - Unspecified systolic (congestive) heart failure (5) Acute kidney injury ICD Codes: N17.9 - Acute kidney failure, unspecified (6) Hypoxia ICD Codes: R09.02 - Hypoxemia (7) CAD (coronary artery disease) ICD Codes: I25.10 - Atherosclerotic heart disease of [place] coronary artery without angina pectoris (8) Anemia ICD Codes: D64.9 - Anemia, unspecified Assessment and Plan 1) Concern with NSTEMI, history of V.Fib arrest, history of pulmonary edema and ST depressions 03/03/17 Discussed extensively with the patient and her about consideration of cardiac catheterization, including risk, benefits and alternatives They would like to try to avoid and continue medical management due to 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 Meier and critical care nurse Problem Qualifiers (1) Anemia: Luis Enrique Willard DO Mar 04, 2017 11:14
--- NOTE | 2017-03-04 17:58 | HHI.CCPN ---
Subjective Remarks/Hospital Course This is a 76-year-old female. Date of admission 02/27/2017. Date of consultation 02/28/2017. Past medical history includes coronary disease with history of 4 stents in 2001 2003, chronic systolic heart failure ejection fraction 40%, hypertension, anemia of chronic disease, chronic low back pain secondary spell stenosis requiring an implanted morphine intrathecal pump, history history of V. fib arrest,/pulmonary edema and hypoxic respiratory failure resulting in likely anoxic encephalopathy, gastritis and external hemorrhoids. Her recent significant history includes an episode of hyperkalemia with potassium of 7.8 leading to ventricular arrest with admission to [facility] on 11/14/16. She was placed on a ventilator and developed sepsis and pneumonia complications. She was discharged with trach and PEG to [facility] in [place] on 11/26/16 under the care of Dr. Bermudez. The patient was transferred to [facility] on 01/23/17 following trach decannulation. She was transferred to [facility] for hypoxic respiratory distress 02/03/17 and required intubation. EGD and colonoscopy performed due to anemia with findings of gastritis, diverticulosis, and 2 large external hemorrhoids. Arrest her status improved and she was extubated, PEG was removed as she was nutritionally improving, she began to make urine and was sent back to [facility] on 02/13/17. She has been suffering from residual anoxic encephalopathy and is a poor historian as a result. On 02/27/17, she was anticipating discharge from [place] as she had met her goals. Her Port-A-Cath was removed by IR on the . She was also having some left sided chest pain related to Vas cath removal. She indicates she has not required dialysis for 3 weeks. The patient relates her symptoms to anxiety. Denies shortness of breath with ambulation, nausea, vomiting, diaphoresis, diarrhea, black or red stool, dysuria, hematuria, dizziness, or syncope. Her outpatient special officer automat is Dr. Montaño in [place]. She reports that in October, she had an abnormal nuclear stress test and was told that one of her arteries was "clogged". At that time, according to the patient, her special officer automat would not perform a cardiac catheterization due to poor renal function. Today, patient had episode of right-sided chest pain. This was thought to be of muscle skeletal nature. A fentanyl patch was placed and patient became more hypoxic secondary to strain causing part ischemia resulting in flash pulmonary edema. She was placed on BiPAP and given 1 dose of oral bumetanide and transferred to room 526. Subjective 03/01: Bradycardia is resolved. Being transfused 2 units per cc per cardiology. Abnormal CAT scan chest noted. Family requests Dr. King to see 03/02: No acute events overnight. Today patient went 8 blood or with 3-1 conduction, with self resolution. Dynamically stable systolic blood pressure 170s denies chest pain at this time. 03/03: No acute events overnight. No immediate plans for cardiac catheterization , secondary to multiple comorbidities at this time 03/04: Afebrile. Patient continues on heparin infusion has not been transitioned to Coumadin secondary to plans for bronchoscopy on 03/06. Objective Vital Signs Date Time Temp Pulse Resp B/P (MAP) Pulse Ox O2 Delivery O2 Flow Rate FiO2 03/04/17 16:36 21 03/04/17 16:00 97.0 77 151/70 (97) 98 03/04/17 07:04 Nasal Cannula 2.00 03/02/17 01:15 35 Intake and Output 03/04/17 03/04/17 03/05/17 08:00 16:00 00:00 Intake Total 300 ml 250 ml Output Total 700 ml 350 ml Balance -400 ml -100 ml Result Diagram: 03/03/17 0335 03/04/17 0815 Imaging Last Impressions Chest CT 03/01/17 0000 Signed Impressions: Service Date/Time: Wednesday, March 01, 2017 11:07 - CONCLUSION: 1. Numerous bilateral subcentimeter pulmonary nodules concerning for metastatic disease. 2. Small bilateral pleural effusions and scattered groundglass densities could be infiltrate. 3. Coronary artery calcifications. Jean Paul Arvizu MD Abdomen/Pelvis CT 03/01/17 0000 Signed Impressions: Service Date/Time: Wednesday, March 01, 2017 11:07 - CONCLUSION: 1. Diverticulosis without diverticulitis. 2. Status post cholecystectomy. 3. Atrophic kidneys. 4. No mass or adenopathy. Jean Paul Arvizu MD Chest X-Ray 02/28/17 0000 Signed Impressions: Service Date/Time: Tuesday, February 28, 2017 13:02 - CONCLUSION: 1. Probable CHF. Duy Chen MD Objective Remarks GENERAL: This is a 76-year-old female, resting in bed on nasal cannula in no acute distress SKIN: Warm and dry. Well perfused HEAD: Atraumatic. Normocephalic. EYES: Pupils equal and round about 3 mm bilaterally and reactive. No scleral icterus. No injection or drainage. ENT: No nasal bleeding or discharge. Mucous membranes pink and moist. NECK: Trachea midline. No JVD. CARDIOVASCULAR: Regular rate and rhythm. S1, S2. No S4. Without murmur RESPIRATORY: To crackles appreciated in bases bilaterally. Symmetrical excursion.. GASTROINTESTINAL: Abdomen soft, distended. Hypoactive bowel sounds are appreciated. MUSCULOSKELETAL: Extremities with trace bilateral lower extremity edema. No obvious deformities. Left permacath removed with Steri-Strips old blood. Right Port-A-Cath is clean dry and intact without erythema NEUROLOGICAL: Awake and alert. No obvious cranial nerve deficits. Motor grossly within normal limits. 5/5 muscle strength in the arms and legs. Normal speech. 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 Anxiety Currently on quetiapine 100 Mg Twice a Day Fentanyl patch 50 g every 72 hours. Acetaminophen for fever Hydrocodone/acetaminophen 5/325 one tablet every 4 hours when necessary pain 1- 5 and morphine sulfate 2 mg IV every 2 hours. Pain 6-10 CV: Bradycardia - resolved Chest pain History of V. fib arrest secondary to hyperkalemia Chronic systolic heart failure ejection fraction 40% Coronary disease status post stent 4 Hypertension History of paroxysmal atrial fibrillation currently in first-degree AV block Followed by cardiology/Dr. Willard. Plan for cardiac catheterization possibly when stabilized Serial troponins EKG revealed first-degree AV block. ST-T depression in the inferior and lateral leads. Patient has a known ejection fraction 40-45%. Pulmonary artery pressures around 44 mmHg Currently on aspirin 81 mg daily On amiodarone 200 mg by mouth daily currently and hydralazine 100 mg every 8 hours, Isordil dinitrate 40 mg twice a day, carvedilol 12.5 mg twice a day and diltiazem 120 mg daily. Carvedilol initiated 03/02 and hold diltiazem today Pacer plans in place. Dopamine if needed Continue aspirin 81 mg daily Bumetanide 1 mg daily 03/03 plans to transition to Coumadin placed on hold secondary to plan for bronchoscopy 03/06 Resp: Acute respiratory failure Currently on nasal cannula to maintain saturations greater than or equal to 92% Incentive spirometry while awake Follow-up ABG and chest x-ray CT thorax reveals small bilateral pleural effusions, groundglass opacities and subcentimeter pulmonary nodules. Pulmonology following , Dr. Collins plans for bronchoscopy with biopsies 03/06 GI: Gastritis/history of gastric ulcer External hemorrhoids Hypoalbuminemia Patient is currently nothing by mouth except for medications Pantoprazole for GI prophylaxis Sucralfate 1 g 3 times a day history of gastric ulcers. On polyethylene glycol 17 g daily with constipation along with our bowel regimen docusate/senna 1 tablet twice a day : Olson catheter if indicated for accurate I's and O's in a critically ill patient Endo: Hyperglycemia History of partial thyroidectomy/parathyroidectomy Sliding-scale insulin with Accu-Cheks before meals/at bedtime to maintain euglycemia moderate regimen with Novulin R Renal: Chronic kidney disease stage IV. Recently Receiving hemodialysis Friday/ Friday/Friday with Dr. Shipman Nephrology actively following. Creatinine currently 2.58, and elevation patient received additional doses of diuretics secondary to blood transfusion on 03/01 Heme: Anemia of chronic kidney disease Elevated INR/PTT Chronic warfarin use Leukopenia Anemia Thrombocytopenia Follow-up CBC coags in a.m. Heparin drip to be continued. 03/01 Transfused 2 units PRBCs per cardiology's request ID: Monitor for infection FEN: Replace electrolytes as clinically indicated MSK: PT evaluate and treat Access - Utilize right Port-A-Cath. Prophylaxis - GI - pantoprazole - DVT - SCD/heparin drip Dispo: Level 3 Discussed with STUDY MANAGER at bedside (Della) Physician Sharon Alvares MD Mar 04, 2017 17:58
[2017-03-04 20:27] LABS: APTT (PATIENT) 41.8 SEC (24.3-30.1)
[2017-03-04] MEDS: CHLORHEXIDINE GLUCONATE 2 % 1 PACK (2 CLOTHS) TOP SCH (21:36)
[2017-03-05] VITALS (17 sets, daily range): BP systolic 134–175; BP diastolic 59–91; PULSE 38–91; RESP 14–26; TEMP 97.5–98.7; O2SAT 94–99
[2017-03-05] MEDS: MORPHINE SULFATE 4 MG/ML INJ IV PUSH PRN ×3 (02:23→21:06)
[2017-03-05 03:05] LABS: APTT (PATIENT) 41.3 SEC (24.3-30.1)
[2017-03-05 04:39] LABS: AUTOMATED NEUTROPHIL # 2.1 TH/MM3 (1.8-7.7); BASOPHIL % 0.7 % (0.0-2.0); EOSINOPHIL # 0.2 TH/MM3 (0-0.4); EOSINOPHIL % 5.3 % (0.0-4.0); HEMATOCRIT 26.5 % (35.0-46.0); LYMPH % 16.2 % (9.0-44.0); LYMPHOCYTE # 0.5 TH/MM3 (1.0-4.8); MEAN CELL VOLUME 90.1 FL (80.0-100.0); MEAN CORPUSCULAR HEMOGLOBIN 30.1 PG (27.0-34.0); MEAN CORPUSCULAR HGB CONC 33.5 % (32.0-36.0); MONO % 8.9 % (0.0-8.0); NEUT % 68.9 % (16.0-70.0); PLATELET COUNT 94 TH/MM3 (150-450); RED BLOOD COUNT 2.94 MIL/MM3 (4.00-5.30); RED CELL DISTRIBUTION WIDTH 18.8 % (11.6-17.2)
[2017-03-05 04:49] LABS: HEMO FLAGS AUTO DIFF
[2017-03-05 05:04] LABS: MAGNESIUM 1.6 MG/DL (1.5-2.5); POTASSIUM 3.9 MEQ/L (3.5-5.1)
--- NOTE | 2017-03-05 05:26 | RADRPT ---
EXAM DATE/TIME: 03/05/2017 04:31 [place] COMPARISON: CT THORAX W/O CONTRAST, March 01, 2017, 11:07. CHEST SINGLE AP, February 28, 2017, 13:02. INDICATIONS : Shortness of breath. MEDICAL HISTORY : Anemia. SURGICAL HISTORY : Appendectomy. Cholecystectomy. Thyroidectomy. Port. ENCOUNTER: Subsequent ACUITY: 1 week PAIN SCORE: 0/10 LOCATION: Bilateral chest FINDINGS: A single view of the chest demonstrates the lungs to be symmetrically aerated without evidence of mas s, infiltrate or effusion. The cardiomediastinal contours are unremarkable. Osseous structures are intact. The right internal jugular central venous line remains in place. There are surgical clips fro m prior thyroidectomy. CONCLUSION: No acute disease. Guicho Herrera MD on March 05, 2017 at 5:23 Board Certified Radiologist. This report was verified electronically.
[2017-03-05] MEDS: hydrALAZINE HCL 100 MG TAB PO SCH ×3 (05:36→21:04)
[2017-03-05] MEDS: INSULIN NovoLIN REGULAR SUPPLEMENTAL SCALE SQ SCH ×4 (07:45→21:00)
[2017-03-05 07:56] LABS: PLATELET ESTIMATE SMEAR LOW (NORMAL); PLATELET MORPHOLOGY NORMAL (NORMAL); SCAN/DIFF AUTO DIFF CONFIRMED
[2017-03-05] MEDS: DOCUSATE SODIUM 50 MG/SENNA 8.6 MG TAB PO SCH ×2 (08:09→21:05)
[2017-03-05] MEDS: QUEtiapine FUMARATE 100 MG TAB PO SCH ×2 (08:09→21:04)
[2017-03-05] MEDS: BUMETANIDE 1 MG TAB PO SCH (08:09)
[2017-03-05] MEDS: CARVEDILOL 12.5 MG TAB PO SCH ×2 (08:10→21:05)
[2017-03-05] MEDS: AMIODARONE 200 MG TAB PO SCH (08:10)
[2017-03-05] MEDS: SUCRALFATE 1 GM TAB PO SCH ×3 (08:10→16:33)
[2017-03-05] MEDS: ISOSORBIDE DINITRATE 40 MG SUSTAINED RELEASE TAB PO SCH ×2 (08:10→14:37)
[2017-03-05] MEDS: PANTOPRAZOLE SOD 40 MG DELAYED RELEASE TAB PO SCH (08:11)
[2017-03-05] MEDS: ASPIRIN 81 MG CHEW TAB CHEW SCH ×2 (08:11→10:19)
--- NOTE | 2017-03-05 08:47 | HHI.NPPN ---
Subjective History of Present Illness 76 y/o female with a PMH that includes A fib/flutter on chronic Coumadin, HTN, hyperlipidemia, CAD/ischemic cardiomyopathy. She also has CKD 4. In October she was seen in [place] ER with acute hyperkalemia and suffered cardiac arrest. She did survive, was on the ventilator for prolonged period with a trach, eventually weened off the vent and trach, and [facility]. The patient had to be dialyzed emergently in October due to hyperkalemia. Additional Remarks patient is comfortable. No respiratory distress is noted. Renal function is stable. The patient and her are reconsidering if she would proceed with cardiac catheterization. Also is scheduled for bronchoscopy tomorrow because of findings of lung nodules. Review of Systems General Constitutional: Fatigue Cardiovascular Cardiac: Edema, SNYDER Objective Data Data Vital Signs Date Time Temp Pulse Resp B/P (MAP) Pulse Ox O2 Delivery O2 Flow Rate FiO2 03/05/17 08:21 97 Nasal Cannula 2.00 03/05/17 08:00 79 03/05/17 07:00 99 Nasal Cannula 2.00 03/05/17 06:00 38 03/05/17 04:00 98.0 91 26 175/91 (119) 98 03/05/17 04:00 91 03/05/17 02:00 73 03/05/17 00:00 97.5 73 18 134/59 (84) 99 03/05/17 00:00 73 03/04/17 22:00 77 03/04/17 20:00 98.2 75 14 160/85 (110) 96 03/04/17 20:00 75 03/04/17 19:00 98 Nasal Cannula 2.00 03/04/17 18:00 74 03/04/17 16:36 21 03/04/17 16:00 77 03/04/17 16:00 97.0 77 12 151/70 (97) 98 03/04/17 14:00 76 03/04/17 12:00 97.5 58 19 116/56 (76) 97 03/04/17 12:00 58 03/04/17 10:00 71 -: 03/05/17 0400 03/05/17 0400 Physical Exam General Appearance: No Acute Distress, Comfortable Eyes Eye Exam: Pupils Equal Throat Throat Exam: Oral Mucosa [place] & Moist Pulmonary Resp Exam: Clear Bilaterally, Breath Sounds Equal, No Distress Cardiology CV Exam: Regular Gastrointestinal/Abdomen GI Exam: Soft, Non-Tender, Bowel Sounds Present Neurologic Neuro Exam: Alert, Awake Assessment/Plan Problem List: (1) Stage 4 chronic kidney disease ICD Codes: N18.4 - Chronic kidney disease, stage 4 (severe) Plan: Last HD was 02/12; PermCath was removed She is non oliguric No need for dialysis at this time. Renal function is stable, GFR at baseline. If she undergoes cardiac catheterization, risk for DONNIE is about 26%, risk for dialysis is about 1-2%, if 100 ml of iodinated contrast is used. These issues were discussed with the patient. (2) NSTEMI (non-ST elevated myocardial infarction) ICD Codes: I21.4 - Non-ST elevation (NSTEMI) myocardial infarction Plan: Cardiology following On heparin Gtt (3) Anemia in chronic renal disease ICD Codes: N18.9 - Chronic kidney disease, unspecified; D63.1 - Anemia in chronic kidney disease Status: Chronic Plan: Epogen can be given intermittently. (4) Paroxysmal A-fib ICD Codes: I48.0 - Paroxysmal atrial fibrillation Plan: Coumadin to be restarted. (5) Lung nodule, multiple ICD Codes: R91.8 - Other nonspecific abnormal finding of lung field Plan: Being followed by Pulmonary, bronchoscopy is planned. Zoran Shipman MD Mar 05, 2017 08:47
[2017-03-05] MEDS: SODIUM CHLORIDE 0.9% FLUSH 10 ML FLUSH IV FLUSH SCH ×2 (09:00→21:09)
[2017-03-05] MEDS: POLYETHYLENE GLYCOL 17 GM PKG PO SCH (09:00)
[2017-03-05] MEDS: CALCITONIN SALM 200 UNIT/SPRAY 3.7 ML BTLN NASAL SCH (09:00)
[2017-03-05] MEDS: MUPIROCIN 2% OINT 1 APPLIC/GM SYR EACH NARE SCH ×2 (09:12→21:05)
[2017-03-05 09:35] LABS: INTERNATIONAL NORMALIZED RATIO 1.4 RATIO
--- NOTE | 2017-03-05 10:11 | PD.CARD.PN ---
Subjective Subjective Remarks Feels better today No chest pain, no rib pain Objective Medications Current Medications Medications (Trade) Dose Ordered Sig/Yue Route Start Time Stop Time Status Last Admin (NS Flush) 2 ml UNSCH PRN IV FLUSH 02/27/17 21:30 (NS Flush) 2 ml BID IV FLUSH 02/28/17 09:00 03/04/17 21:26 (Narcan Inj) 0.4 mg UNSCH PRN IV PUSH 02/27/17 21:30 (Xanax) 0.25 mg Q8H PRN PO 02/27/17 21:45 03/02/17 22:33 (Cordarone) 200 mg DAILY PO 02/28/17 09:00 03/05/17 08:10 (Aspirin Chew) 81 mg DAILY CHEW 02/28/17 09:00 03/04/17 08:11 (Bumetanide) 1 mg DAILY PO 02/28/17 09:00 03/05/17 08:09 (Cardizem) 30 mg Q6HR PO 02/28/17 00:00 Future Hold 02/28/17 07:00 (Duragesic 50 Mcg Patch.72 Hr) 1 patch Q72H T-DERMAL 03/02/17 12:00 03/02/17 12:53 (Apresoline) 100 mg Q8HR PO 02/27/17 22:00 03/04/17 21:25 (Isordil Tembids Cr) 40 mg BID@08,14 PO 02/28/17 08:00 03/05/17 08:10 (SEROquel) 100 mg BID PO 02/28/17 09:00 03/05/17 08:09 Heparin Sodium/ Dextrose 250 ml @ 8 mls/hr TITRATE PRN IV 02/27/17 22:30 Future hold 03/02/17 09:55 (Heparin Inj) 5,000 units UNSCH PRN IV PUSH 02/27/17 22:30 (Heparin Inj) 2,500 units UNSCH PRN IV PUSH 02/27/17 22:30 03/04/17 09:11 (Protonix) 40 mg DAILY PO 02/28/17 09:00 03/05/17 08:11 (Miralax) 17 gm DAILY PO 03/01/17 09:00 03/04/17 08:11 (Carafate) 1 gm TID PO 02/28/17 13:00 03/05/17 08:10 Miscellaneous Information 1 Q3D T-DERMAL 03/02/17 12:00 (Tylenol) 650 mg Q6H PRN PO 02/28/17 13:15 03/01/17 16:18 ([place] 5-325 Mg) 1 tab Q4H PRN PO 02/28/17 13:15 03/03/17 10:02 (Morphine Inj) 2 mg Q2H PRN IV PUSH 02/28/17 13:15 03/05/17 08:11 (Zofran Inj) 4 mg Q6H PRN IV PUSH 02/28/17 13:15 (Albuterol Neb) 2.5 mg Q2HR NEB PRN INH 02/28/17 13:15 Miscellaneous Information 1 Q361D XX 02/28/17 13:15 02/28/17 13:15 (Chlorhexidine 2% Cloth) 3 pack Taper DAILY@04 TOP 03/01/17 04:00 02/25/18 03:59 03/04/17 21:36 (Chlorhexidine 2% Cloth) 3 pack UNSCH PRN TOP 02/28/17 13:15 (Jacqueline-Colace) 1 tab BID PO 02/28/17 21:00 03/05/17 08:09 (Milk Of Magnesia Liq) 30 ml Q12H PRN PO 02/28/17 13:15 (Senokot) 17.2 mg Q12H PRN PO 02/28/17 13:15 (Dulcolax Supp) 10 mg DAILY PRN RECTAL 02/28/17 13:15 (Lactulose Liq) 30 ml DAILY PRN PO 02/28/17 13:15 (D50w (Vial) Inj) 50 ml UNSCH PRN IV PUSH 02/28/17 13:15 (Glucagon Inj) 1 mg UNSCH PRN OTHER 02/28/17 13:15 (NovoLIN R SUPPLEMENTAL SCALE) 1 ACHS SLIDING SCALE SQ 02/28/17 17:00 03/03/17 12:00 Dopamine HCl 1600 mg/Dextrose 250 ml @ 1.85 mls/hr TITRATE PRN IV 02/28/17 13:30 (Brethine Inj) 1 mg UNSCH PRN SQ 02/28/17 13:30 (Bactroban Nasal 2% Oint) 1 applic Taper BID EACH NARE 03/01/17 21:00 02/25/18 20:59 03/05/17 09:12 (Coreg) 12.5 mg Q12HR PO 03/01/17 21:00 03/05/17 08:10 Vital Signs / I&O Vital Signs Date Time Temp Pulse Resp B/P (MAP) Pulse Ox O2 Delivery O2 Flow Rate FiO2 03/05/17 08:21 97 Nasal Cannula 2.00 03/05/17 08:00 79 03/05/17 08:00 98.7 80 19 149/67 (94) 97 03/05/17 07:00 99 Nasal Cannula 2.00 03/05/17 06:00 38 03/05/17 04:00 98.0 91 26 175/91 (119) 98 03/05/17 04:00 91 03/05/17 02:00 73 03/05/17 00:00 97.5 73 18 134/59 (84) 99 03/05/17 00:00 73 03/04/17 22:00 77 03/04/17 20:00 98.2 75 14 160/85 (110) 96 03/04/17 20:00 75 03/04/17 19:00 98 Nasal Cannula 2.00 03/04/17 18:00 74 03/04/17 16:36 21 03/04/17 16:00 77 03/04/17 16:00 97.0 77 12 151/70 (97) 98 03/04/17 14:00 76 03/04/17 12:00 97.5 58 19 116/56 (76) 97 03/04/17 12:00 58 I/O 03/04/17 03/04/17 03/04/17 03/05/17 03/05/17 03/05/17 07:00 15:00 23:00 07:00 15:00 23:00 Intake Total 300 ml 250 ml 583 ml 154.3 ml Output Total 700 ml 350 ml Balance -400 ml -100 ml 583 ml 154.3 ml Intake Oral 300 ml 250 ml 500 ml 120 ml IV Total 83 ml 34.3 ml Output Urine Total 700 ml 350 ml # Voids 2 # Bowel Movements 0 Physical Exam GENERAL: NAD, AAOx3 SKIN: Warm and dry. HEAD: Atraumatic. Normocephalic. EYES: Pupils equal and round. No scleral icterus. No injection or drainage. Right eye with ecchymosis from previous fall ENT: No nasal bleeding or discharge. Mucous membranes pink and moist. NECK: Trachea midline. No JVD. CARDIOVASCULAR: Regular rate and rhythm. RESPIRATORY: No accessory muscle use. Decreased breath sounds bilaterally GASTROINTESTINAL: Abdomen soft, non-tender, nondistended. Hepatic and splenic margins not palpable. MUSCULOSKELETAL: Extremities without clubbing, cyanosis, or edema. No obvious deformities. NEUROLOGICAL: Awake and alert. No obvious cranial nerve deficits. Motor grossly within normal limits. Five out of 5 muscle strength in the arms and legs. Normal speech. PSYCHIATRIC: Appropriate mood and affect; insight and judgment normal. Laboratory Laboratory Tests Test 03/04/17 19:41 03/05/17 02:46 03/05/17 04:00 Activated Partial Thromboplast Time 41.8 SEC 41.3 SEC Prothrombin Time 14.0 SEC Prothromb Time International Ratio 1.4 RATIO White Blood Count 3.0 TH/MM3 Red Blood Count 2.94 MIL/MM3 Hemoglobin 8.9 GM/DL Hematocrit 26.5 % Mean Corpuscular Volume 90.1 FL Mean Corpuscular Hemoglobin 30.1 PG Mean Corpuscular Hemoglobin Concent 33.5 % Red Cell Distribution Width 18.8 % Platelet Count 94 TH/MM3 Mean Platelet Volume 8.8 FL Neutrophils (%) (Auto) 68.9 % Lymphocytes (%) (Auto) 16.2 % Monocytes (%) (Auto) 8.9 % Eosinophils (%) (Auto) 5.3 % Basophils (%) (Auto) 0.7 % Neutrophils # (Auto) 2.1 TH/MM3 Lymphocytes # (Auto) 0.5 TH/MM3 Monocytes # (Auto) 0.3 TH/MM3 Eosinophils # (Auto) 0.2 TH/MM3 Basophils # (Auto) 0.0 TH/MM3 CBC Comment AUTO DIFF Differential Comment AUTO DIFF CONFIRMED Platelet Estimate LOW Platelet Morphology Comment NORMAL Blood Urea Nitrogen 49 MG/DL Creatinine 2.37 MG/DL Random Glucose 75 MG/DL Albumin 2.7 GM/DL Calcium Level 9.4 MG/DL Phosphorus Level 3.2 MG/DL Magnesium Level 1.6 MG/DL Sodium Level 136 MEQ/L Potassium Level 3.9 MEQ/L Chloride Level 101 MEQ/L Carbon Dioxide Level 27.0 MEQ/L Anion Gap 8 MEQ/L Estimat Glomerular Filtration Rate 20 ML/MIN Imaging Last 24 hours Impressions Chest X-Ray 03/05/17 0600 Signed Impressions: Service Date/Time: Sunday, March 05, 2017 04:31 - CONCLUSION: No acute disease. Guicho Herrera MD Assessment and Plan Problem List: (1) NSTEMI (non-ST elevated myocardial infarction) ICD Codes: I21.4 - Non-ST elevation (NSTEMI) myocardial infarction (2) H/O ventricular fibrillation ICD Codes: Z86.79 - Personal history of other diseases of the circulatory system (3) Paroxysmal A-fib ICD Codes: I48.0 - Paroxysmal atrial fibrillation (4) Systolic CHF ICD Codes: I50.20 - Unspecified systolic (congestive) heart failure (5) Acute kidney injury ICD Codes: N17.9 - Acute kidney failure, unspecified (6) Hypoxia ICD Codes: R09.02 - Hypoxemia (7) CAD (coronary artery disease) ICD Codes: I25.10 - Atherosclerotic heart disease of [place] coronary artery without angina pectoris (8) Anemia ICD Codes: D64.9 - Anemia, unspecified Assessment and Plan 1) Concern with NSTEMI, history of V.Fib arrest, history of pulmonary edema and ST depressions 03/03/17 Discussed extensively with the patient and her about consideration of cardiac catheterization, including risk, benefits and alternatives They would like to try to avoid and continue medical management due to overall concern for residential HD and bleeding risk Discussed that I could do a diagnostic with minimal contrast, but they would like to hold off 03/05/17 Spoke to her process mechanic yesterday, Dr. Montaño, who felt she should be cathed due to obvious risk of significant disease and was going to call the patient's to discuss I once again went over everything this morning with the patient and her , as well as Dr. Montaño's recommendations Gave the option of: 1) Cath today 2) Con't medical management, and if things change can reassess to see about catheterization is very apprehensive about cardiac catheterization with her 4 month stay in the hospital and overall comorbidities He requested palliative care to see him and the patient to help with decision making and overall goals Will continue medical until further decisions are made 2) Abnormal CT with multiple subcentimeter pulmonary nodules, concerning for possible METs Pulmonary following, considering bronch 3) Afib Previously on Coumadin which was held for possible catheterization 4) Case discussed with Dr. Meier and critical care nurse Problem Qualifiers (1) Anemia: Luis Enrique Willard DO Mar 05, 2017 10:11
[2017-03-05] MEDS: REMOVE OLD DURAGESIC (FENTANYL) PATCH T-DERMAL SCH (11:56)
[2017-03-05] MEDS: fentaNYL 50 MCG/HR PATCH T-DERMAL SCH (11:56)
--- NOTE | 2017-03-05 14:07 | PD.CONS ---
Consult Service Palliative Care Consult Requested By Dr. Meier . Primary Care Physician Naeem Monteiro M.D. . Reason for Consultation a. To assist with evaluation and management of symptoms including: Dyspnea, pain b. To assist medical decision maker(s) with: better understanding of current medical conditions; weighing benefits/burdens of medical treatment options; making medical treatment decisions. HPI History of Present Illness This is a 76-year-old female with a complicated history starting with an admission to [facility] November 14, 2016. During her ED evaluation she was found to have a potassium level of 7.8 and subsequently had a witnessed V. fib cardiac arrest and remained pulseless for 18 minutes during ACLS protocol before ROSC. She then underwent a code cool. She also required urgent dialysis secondary to the hyperkalemia. 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 She was also found to have an ESBL positive UTI. She required tracheostomy and PEG placement and was transferred to [facility] 11/26/16 for vent weaning and rehabilitation. She subsequently did wean off the vent and the trach and PEG tube were removed. On January 23, she was admitted to [facility] inpatient rehabilitation for further therapy. On 02/03, after undergoing hemodialysis she developed respiratory distress and hypoxemia with oxygen saturations in the 80s. She was placed on BiPAP ventilation with some improvement in oxygenation and admitted to the intensive care unit under critical care service. She continued to decline in ICU and was subsequently reintubated then extubated 02/08. On 02/13 she was deemed stable for transfer back to Nursery rehabilitation to continue her therapy. On :30 her discharge from Nursery was pending and she reported an increase in anxiety, palpitations and bilateral under arm pain. She was then transferred back to [facility] for evaluation of chest pain. On 02/06, she underwent colonoscopy for progressive anemia, concerning for a GI bleed which found moderate diverticulosis in the sigmoid and descending colon with large external hemorrhoids. CONSULTATIONS * Cardiology: 2-D echocardiogram done 02/28 showed an EF of 40-45%. History of 4 stents previously with reportedly abnormal nuclear stress study done by her mold technician, Dr. Dedrick Montaño. Cardiac catheterization has not yet been done due to her renal dysfunction and medical management was being used for treatment. She is followed by Dr. Willard now and cardiac catheterization has not been done at this time due to an elevated INR, thrombocytopenia and renal dysfunction. He feels that she most likely has significant coronary artery disease given her prior presentation of V. fib arrest and pulmonary edema. Given her multiple comorbidities, he feels she would be a poor bypass candidate. * Nephrology: Currently no need for dialysis. Estimates the risk for acute kidney injury at 26% if she chooses cardiac catheterization with a risk for dialysis about 1-2% if approximately 100 mL of iodinated contrast is used. Recommend intermittent Epogen for anemia. * Pulmonology: CT of the chest 03/01 showed numerous bilateral subcentimeter pulmonary nodules concerning for metastatic disease and pulmonary was consulted for evaluation. Planned bronchoscopy tomorrow to evaluate. . Function/Cognitive Trajectory Prior to her initial admission in October she was independent at home however since then with her multiple complications, she has declined and become very weak. She [facility]. She has a known degree of heart failure as well as renal insufficiency and is now suspect for possible metastatic disease to the lungs. She is at high risk of further complications, decline and recurrent hospitalizations. . Review of Systems Constitutional: COMPLAINS OF: Fatigue, Generalized weakness Respiratory: COMPLAINS OF: Shortness of breath Musculoskeletal: COMPLAINS OF: Muscle aches Past Family Social History Coded Allergies: shellfish derived (Unverified Allergy, Unknown, 11/12/16) Past Medical History CKD stage 4 with renal failure requiring HD about 3 weeks ago (complete renal failure resolved now) CAD s/p cardiac stents x 4 in 2001 and 2003 Systolic CHF with EF 40 - 45%, diastolic dysfunction Aortic sclerosis Hypothyroidism Hypertension Dyslipidemia Chronic anemia related to chronic illness, previously treated for iron deficiency and vitamin B12 deficiency anemia Chronic lower back pain secondary to spinal stenosis - implanted pain pump - MSO4 Hyperkalemia with potassium of 7.8 leading to ventricular fibrillation CP arrest V-fib arrest Mild anoxic encephalopathy Flash pulmonary edema Hypoxic hypercapnic respiratory failure Atrial fibrillation, paroxysmal Gastritis External hemorrhoids Hearing impairment Anxiety History of alcoholism, quit in 2001 Gout Past Surgical History Implanted morphine pain pump for spinal stenosis Cardiac stents 4 in 2001 in 2003, 8mm X 3.5 Penta stent to mid LAD, 2001 Repair of right femoral artery status post catheterization with evacuation of large right groin hematoma Peripheral vascular disease Left renal artery stent 2002 Cholecystectomy Tracheostomy with subsequent reversal PEG tube placement with subsequent removal Right cochlear implant Vascath placement Port placement Colonoscopy and EGD Appendectomy Left heart catheterizations Right ankle ORIF Cataract extraction Partial parathyroidectomy . Reported Medications Reported Meds & Active Scripts Active Magnesium Oxide 400 Mg Tab 400 Mg PO BID Bumetanide 1 Mg Tab 1 Mg PO DAILY Klor-Con 10 (Potassium Chloride) 10 Meq Tab 10 Meq PO Q12HR Tgt Aspirin (Aspirin) 81 Mg Chw 81 Mg CHEW DAILY Cardizem (Diltiazem HCl) 30 Mg Tab 30 Mg PO Q6HR Coreg (Carvedilol) 12.5 Mg Tab 12.5 Mg PO Q12HR Isosorbide Dinitrate ER (Isosorbide Dinitrate) 40 Mg Cheryl 40 Mg PO BID@08,14 Hydralazine (Hydralazine HCl) 100 Mg Tab 100 Mg PO Q8HR Take with meals Xanax (Alprazolam) 0.25 Mg Tab 0.25 Mg PO Q8H PRN Quetiapine (Quetiapine Fumarate) 100 Mg Tab 100 Mg PO BID Fentanyl Patch 72 HR (Fentanyl) 50 Mcg/Hr Patch 50 Mcg T-DERMAL Q72H Remove old patch when new one placed. Docusate Sodium 100 Mg Cap 100 Mg PO BID Amiodarone (Amiodarone HCl) 200 Mg Tab 200 Mg PO DAILY Walker Rolling/GetGo (Device) 1 Mis Mis Ea .ROUTE DIRECTED Coumadin (Warfarin) 5 Mg Tab 5 Mg PO DAILY@1600 [Metoclopramide Liq] 10 MG/10 ML Syrp 5 Mg PO QID Commode With Arms (Device) 1 Mis Mis Ea .ROUTE DIRECTED Wheelchair (Device) 1 Mis Mis Ea .ROUTE DIRECTED Hospital Bed - Electric 1 Ea Ea Ea .ROUTE DIRECTED Reported Sucralfate 1 Gram Tab 1 Gm PO TID on empty stomach Miralax Powder (Polyethylene Glycol 3350 Powder) 17 Gm Powd 17 Gm PO DAILY Mix and dissolve one measuring cap-ful (17 grams) in water or juice. Calcitonin (Driver) Nasal Donie (Calcitonin Driver) 200 Units/Act Soln 1 Donie NASAL DAILY Alternate nostrils daily. Bisacodyl Supp (Bisacodyl) 10 Mg Supp 10 Mg RECTAL DAILY PRN Tylenol (Acetaminophen) 325 Mg Tab 325 Mg PO Q6H PRN . Current Medications Medications (Trade) Dose Ordered Sig/Yue Route Start Time Stop Time Status Last Admin (NS Flush) 2 ml UNSCH PRN IV FLUSH 02/27/17 21:30 (NS Flush) 2 ml BID IV FLUSH 02/28/17 09:00 03/04/17 21:26 (Narcan Inj) 0.4 mg UNSCH PRN IV PUSH 02/27/17 21:30 (Xanax) 0.25 mg Q8H PRN PO 02/27/17 21:45 03/02/17 22:33 (Cordarone) 200 mg DAILY PO 02/28/17 09:00 03/05/17 08:10 (Aspirin Chew) 81 mg DAILY CHEW 02/28/17 09:00 03/05/17 10:19 (Bumetanide) 1 mg DAILY PO 02/28/17 09:00 03/05/17 08:09 (Cardizem) 30 mg Q6HR PO 02/28/17 00:00 Future Hold 02/28/17 07:00 (Duragesic 50 Mcg Patch.72 Hr) 1 patch Q72H T-DERMAL 03/02/17 12:00 03/05/17 11:56 (Apresoline) 100 mg Q8HR PO 02/27/17 22:00 03/04/17 21:25 (Isordil Tembids Cr) 40 mg BID@08,14 PO 02/28/17 08:00 03/05/17 08:10 (SEROquel) 100 mg BID PO 02/28/17 09:00 03/05/17 08:09 Heparin Sodium/ Dextrose 250 ml @ 8 mls/hr TITRATE PRN IV 02/27/17 22:30 Future hold 03/02/17 09:55 (Heparin Inj) 5,000 units UNSCH PRN IV PUSH 02/27/17 22:30 (Heparin Inj) 2,500 units UNSCH PRN IV PUSH 02/27/17 22:30 03/04/17 09:11 (Protonix) 40 mg DAILY PO 02/28/17 09:00 03/05/17 08:11 (Miralax) 17 gm DAILY PO 03/01/17 09:00 03/04/17 08:11 (Carafate) 1 gm TID PO 02/28/17 13:00 03/05/17 11:55 Miscellaneous Information 1 Q3D T-DERMAL 03/02/17 12:00 126/17 11:56 (Tylenol) 650 mg Q6H PRN PO 02/28/17 13:15 03/01/17 16:18 ([place] 5-325 Mg) 1 tab Q4H PRN PO 02/28/17 13:15 03/03/17 10:02 (Morphine Inj) 2 mg Q2H PRN IV PUSH 02/28/17 13:15 03/05/17 08:11 (Zofran Inj) 4 mg Q6H PRN IV PUSH 02/28/17 13:15 (Albuterol Neb) 2.5 mg Q2HR NEB PRN INH 02/28/17 13:15 Miscellaneous Information 1 Q361D XX 02/28/17 13:15 02/28/17 13:15 (Chlorhexidine 2% Cloth) 3 pack Taper DAILY@04 TOP 03/01/17 04:00 02/25/18 03:59 03/04/17 21:36 (Chlorhexidine 2% Cloth) 3 pack UNSCH PRN TOP 02/28/17 13:15 (Jacqueline-Colace) 1 tab BID PO 02/28/17 21:00 03/05/17 08:09 (Milk Of Magnesia Liq) 30 ml Q12H PRN PO 02/28/17 13:15 (Senokot) 17.2 mg Q12H PRN PO 02/28/17 13:15 (Dulcolax Supp) 10 mg DAILY PRN RECTAL 02/28/17 13:15 (Lactulose Liq) 30 ml DAILY PRN PO 02/28/17 13:15 (D50w (Vial) Inj) 50 ml UNSCH PRN IV PUSH 02/28/17 13:15 (Glucagon Inj) 1 mg UNSCH PRN OTHER 02/28/17 13:15 (NovoLIN R SUPPLEMENTAL SCALE) 1 ACHS SLIDING SCALE SQ 02/28/17 17:00 03/03/17 12:00 Dopamine HCl 1600 mg/Dextrose 250 ml @ 1.85 mls/hr TITRATE PRN IV 02/28/17 13:30 (Brethine Inj) 1 mg UNSCH PRN SQ 02/28/17 13:30 (Bactroban Nasal 2% Oint) 1 applic Taper BID EACH NARE 03/01/17 21:00 02/25/18 20:59 03/05/17 09:12 (Coreg) 12.5 mg Q12HR PO 03/01/17 21:00 03/05/17 08:10 Family History Mother and father both from CVA Grandmother with PR . Substance Use Tobacco: Nonsmoker, however did have secondhand exposure from her . Alcohol: History of alcoholism, quit in 2001. Prescription med abuse: No history of prescription drug abuse. Illicits: No history of illicit drug abuse. . Psychosocial History Born in [place], [place], she moved around the country with her family because of her father's job. 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 She did have one child which she lost. . 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 She would like to be visited by a mixing place supervisor and receive sacraments of the sick. . Living Will: Copy in medical record Health Care Surrogate: Never completed Durable Power of Prop And Effects Designer: Never completed Physical Exam Vital Signs Date Time Temp Pulse Resp B/P (MAP) Pulse Ox O2 Delivery O2 Flow Rate FiO2 03/05/17 10:00 84 03/05/17 08:21 97 Nasal Cannula 2.00 03/05/17 08:00 79 03/05/17 08:00 98.7 80 19 149/67 (94) 97 03/05/17 07:00 99 Nasal Cannula 2.00 03/05/17 06:00 38 03/05/17 04:00 98.0 91 26 175/91 (119) 98 03/05/17 04:00 91 03/05/17 02:00 73 03/05/17 00:00 97.5 73 18 134/59 (84) 99 03/05/17 00:00 73 03/04/17 22:00 77 03/04/17 20:00 98.2 75 14 160/85 (110) 96 03/04/17 20:00 75 03/04/17 19:00 98 Nasal Cannula 2.00 03/04/17 18:00 74 03/04/17 16:36 21 03/04/17 16:00 77 03/04/17 16:00 97.0 77 12 151/70 (97) 98 03/04/17 14:00 76 Exam CONSTITUTIONAL/GENERAL: This is an adequately nourished patient, in no apparent distress. TUBES/LINES/DRAINS: Right subclavian central line. SKIN: No jaundice, rashes, or lesions. Ecchymoses on upper extremities. No wounds seen anteriorly. Skin temperature appropriate. Not diaphoretic. HEAD: Atraumatic. Normocephalic. EYES: Pupils equal and round and reactive. Extraocular motions intact. No scleral icterus. No injection or drainage. Fundi not examined. ENT: Hard of hearing. Nose without bleeding or purulent drainage. Throat without visible erythema, exudates, masses, or lesions. NECK: Trachea midline. Supple, nontender. No palpable thyroid enlargement or nodularity. CARDIOVASCULAR: Regular rate and rhythm without gallops, or rubs. 2/6 systolic ejection murmur heard at the left sternal border. No JVD. Peripheral pulses symmetric. RESPIRATORY/CHEST: Symmetric, unlabored respirations. Clear, diminished to auscultation. Breath sounds equal bilaterally. No wheezes, rales, or rhonchi. GASTROINTESTINAL: Abdomen soft, non-tender, nondistended. No hepato-splenomegaly , or palpable masses. No guarding. Bowel sounds present. GENITOURINARY: Without palpable bladder distension. MUSCULOSKELETAL: Extremities without clubbing, cyanosis, or edema. No joint tenderness or effusion noted. No calf tenderness. No mottling or clubbing. NEUROLOGICAL: Awake and alert. Motor and sensory grossly within normal limits. Follows commands. Moves all extremities. PSYCHIATRIC: No obvious anxiety/depression. no apparent hallucinations or other psychotic thought process. . Diagnostic Tests Laboratory Laboratory Tests Test 03/03/17 03:35 03/04/17 08:15 03/04/17 19:41 03/05/17 02:46 White Blood Count 4.0 TH/MM3 (4.0-11.0) Red Blood Count 3.08 MIL/MM3 (4.00-5.30) Hemoglobin 9.3 GM/DL (11.6-15.3) Hematocrit 27.7 % (35.0-46.0) Mean Corpuscular Volume 89.8 FL (80.0-100.0) Mean Corpuscular Hemoglobin 30.2 PG (27.0-34.0) Mean Corpuscular Hemoglobin Concent 33.7 % (32.0-36.0) Red Cell Distribution Width 19.4 % (11.6-17.2) Platelet Count 96 TH/MM3 (150-450) Mean Platelet Volume 8.9 FL (7.0-11.0) Activated Partial Thromboplast Time 43.9 SEC (24.3-30.1) 38.9 SEC (24.3-30.1) 41.8 SEC (24.3-30.1) 41.3 SEC (24.3-30.1) Blood Urea Nitrogen 54 MG/DL (7-18) 49 MG/DL (7-18) Creatinine 2.50 MG/DL (0.50-1.00) 2.32 MG/DL (0.50-1.00) Random Glucose 84 MG/DL (74-106) 87 MG/DL (74-106) Calcium Level 9.8 MG/DL (8.5-10.1) 9.8 MG/DL (8.5-10.1) Phosphorus Level 3.5 MG/DL (2.5-4.9) Magnesium Level 1.8 MG/DL (1.5-2.5) Sodium Level 136 MEQ/L (136-145) 135 MEQ/L (136-145) Potassium Level 4.0 MEQ/L (3.5-5.1) 4.0 MEQ/L (3.5-5.1) Chloride Level 102 MEQ/L (98-107) 100 MEQ/L (98-107) Carbon Dioxide Level 24.8 MEQ/L (21.0-32.0) 25.1 MEQ/L (21.0-32.0) Anion Gap 9 MEQ/L (5-15) 10 MEQ/L (5-15) Estimat Glomerular Filtration Rate 19 ML/MIN (>89) 21 ML/MIN (>89) Prothrombin Time 14.0 SEC (9.8-11.6) Prothromb Time International Ratio 1.4 RATIO Test 03/05/17 04:00 White Blood Count 3.0 TH/MM3 (4.0-11.0) Red Blood Count 2.94 MIL/MM3 (4.00-5.30) Hemoglobin 8.9 GM/DL (11.6-15.3) Hematocrit 26.5 % (35.0-46.0) Mean Corpuscular Volume 90.1 FL (80.0-100.0) Mean Corpuscular Hemoglobin 30.1 PG (27.0-34.0) Mean Corpuscular Hemoglobin Concent 33.5 % (32.0-36.0) Red Cell Distribution Width 18.8 % (11.6-17.2) Platelet Count 94 TH/MM3 (150-450) Mean Platelet Volume 8.8 FL (7.0-11.0) Neutrophils (%) (Auto) 68.9 % (16.0-70.0) Lymphocytes (%) (Auto) 16.2 % (9.0-44.0) Monocytes (%) (Auto) 8.9 % (0.0-8.0) Eosinophils (%) (Auto) 5.3 % (0.0-4.0) Basophils (%) (Auto) 0.7 % (0.0-2.0) Neutrophils # (Auto) 2.1 TH/MM3 (1.8-7.7) Lymphocytes # (Auto) 0.5 TH/MM3 (1.0-4.8) Monocytes # (Auto) 0.3 TH/MM3 (0-0.9) Eosinophils # (Auto) 0.2 TH/MM3 (0-0.4) Basophils # (Auto) 0.0 TH/MM3 (0-0.2) CBC Comment AUTO DIFF Differential Comment AUTO DIFF CONFIRMED Platelet Estimate LOW (NORMAL) Platelet Morphology Comment NORMAL (NORMAL) Blood Urea Nitrogen 49 MG/DL (7-18) Creatinine 2.37 MG/DL (0.50-1.00) Random Glucose 75 MG/DL (74-106) Albumin 2.7 GM/DL (3.4-5.0) Calcium Level 9.4 MG/DL (8.5-10.1) Phosphorus Level 3.2 MG/DL (2.5-4.9) Magnesium Level 1.6 MG/DL (1.5-2.5) Sodium Level 136 MEQ/L (136-145) Potassium Level 3.9 MEQ/L (3.5-5.1) Chloride Level 101 MEQ/L (98-107) Carbon Dioxide Level 27.0 MEQ/L (21.0-32.0) Anion Gap 8 MEQ/L (5-15) Estimat Glomerular Filtration Rate 20 ML/MIN (>89) Result Diagram: 03/05/17 0400 03/05/17 0400 Microbiology Microbiology Date/Time Source Procedure Growth Status 02/28/17 14:27 Blood Peripheral Aerobic Blood Culture - Final NO GROWTH IN 5 DAYS Complete 02/28/17 14:27 Blood Peripheral Anaerobic Blood Culture - Final NO GROWTH IN 5 DAYS Complete 02/28/17 18:15 Urine Catheterized Urine Urine Culture - Final NO GROWTH IN 48 HOURS. Complete Imaging Last Impressions Chest X-Ray 03/05/17 0600 Signed Impressions: Service Date/Time: Sunday, March 05, 2017 04:31 - CONCLUSION: No acute disease. Guicho Herrera MD Chest CT 03/01/17 0000 Signed Impressions: Service Date/Time: Wednesday, March 01, 2017 11:07 - CONCLUSION: 1. Numerous bilateral subcentimeter pulmonary nodules concerning for metastatic disease. 2. Small bilateral pleural effusions and scattered groundglass densities could be infiltrate. 3. Coronary artery calcifications. Jean Paul Arvizu MD Abdomen/Pelvis CT 03/01/17 0000 Signed Impressions: Service Date/Time: Wednesday, March 01, 2017 11:07 - CONCLUSION: 1. Diverticulosis without diverticulitis. 2. Status post cholecystectomy. 3. Atrophic kidneys. 4. No mass or adenopathy. Jean Paul Arvizu MD Patient/Family Conference Present at Family Conference: Spoke with patient and her at bedside. Discussed palliative care nurse and focus. Reviewed patient's medical conditions, history and goals. Discussed the below listed palliative care items. Patient and both state they wish to remain a FULL CODE. Family Conference Time (mins): 50 Family Conference Location: Bedside Issues Discussed: * Palliative care role, purpose, approach * Additional medical, psychosocial, and spiritual history * Patients general health, functional status, and cognitive changes in the months leading up to the current hospitalization * Patient/family understanding of the current medical problems * Patient/family understanding of prognosis * Patients goals of care as best understood from advance directives and/or conversations and/or values * Current medical treatment options and benefits/burdens of those options * Likely scenarios comparing ongoing aggressive care with a transition to comfort measures only * Questions answered to the best of my ability * Palliative care contact information provided Assessment and Plan Disease Oriented Problem List: (1) Acute renal failure (2) Anoxic encephalopathy (3) Presence of implanted infusion pump (4) Hypertension, essential (5) CAD (coronary artery disease) (6) Acute respiratory failure (7) Paroxysmal A-fib (8) Systolic CHF (9) Chronic back pain (10) Lung nodule, multiple Symptom Scale: (1) Dyspnea and respiratory abnormalities 0-10 Scale: Unable to quantify (dyspnea on exertion) (2) Pain, generalized 0-10 Scale: Unable to quantify (right chest wall) Pertinent Non-Medical Issues Psychosocial:Born in [place], [place], she moved around the country with her family because of her father's job. 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 She did have one child which she lost. . 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 She would like to be visited by a mixing place supervisor and receive sacraments of the sick. . Legal: She is and her would be her proxy decision maker. She agrees with him making her decisions. . Ethical issues impacting care: None noted. . Important Contacts : Wayne Buckley , cell . Prognosis Her prognosis is poor. Her heart function is decreased with an ejection fraction of 40-45%. She has already had a V. fib cardiac arrest. Per the mold technician evaluation he feels that she does have significant ischemic disease , however she also has renal disease and has recently been on dialysis. As she is not a candidate for cardiac bypass, the cardiac catheterization with possible stent placement would present her with a higher risk than benefit ratio. This has been confirmed by not only the mold technician but also Dr. King who is a personal friend of the patient's. Nephrology feels that she would have a 26% risk of sustaining further kidney damage with 1-2% risk of permanent dialysis from undergoing a cardiac catheterization. As Dr. Willard feels that limited intervention will be available from the cardiac catheterization and Dr. King, who was requested to give a second opinion, also agrees that the risk is higher than the benefit, patient and have decided at this time to hold on cardiac catheterization, particularly in light of the CT findings of multiple subcentimeter pulmonary nodules suspicious for metastatic disease. She has agreed to undergo bronchoscopy for further diagnosis but at this time wishes to hold on further aggressive procedures until the biopsy is received for the pulmonary nodules. The bronchoscopy itself however presents a risk as she has been intubated multiple times since October of this year. . Code Status: Full Code Plan PLAN: Legal decision maker: The patient is able to participate in decision-making but does have a mild anoxic encephalopathy. Per [place] statutes would be the proxy decision-maker, and he is willing to serve in that role. The states that she is happy to have him make the decisions. Goals: Aggressive FULL CODE CODE STATUS: SYMPTOMS: * Dyspnea: She has chronic anemia, which has been worked up by her process helper , Dr. Lemos and found to be multi-factorial to include anemia of chronic disease, iron deficiency anemia and vitamin B-12 deficiency, for which she had been receiving monthly shots. She has not been receiving her injections since her hospitalization in October. Would recommend hematology evaluation to restart her chronic medications. Her dyspnea is improving with therapy. She is at risk for recurrent respiratory difficulties. She has had episodes of flash pulmonary edema and she currently has concern for possible metastatic disease as pulmonary nodules have been found throughout bilateral lung ruff suspicious for metastasis. Bronchoscopy scheduled for tomorrow to evaluate. * Pain: This is multifactorial. She has had some falls during her four-month hospitalizations and may have residual muscle pain. The discomfort in her right chest is reproducible by palpation, likely musculoskeletal in nature, per Dr. Willard. She also has chronic lumbar pain for which she has been under treatment by pain management for some time and has an implanted pain pump. At this time her right chest wall pain is being managed by a fentanyl patch. She does have more 5/325 mg for breakthrough pain and morphine sulfate 2 mg IV every 2 hours. She has not use the [place] in 2 days. She has received the IV morphine 4 times in the last 24 hours. She denies pain at this evaluation. SUMMARY This is a 76-year-old female with multiple comorbidities to include heart failure, kidney compromise, lung nodules and chronic iron deficiency, vitamin 12 and chronic disease anemia. While it is felt that she does have severe coronary artery disease, she is not considered to be a candidate for bypass surgery and has been managed medically. While a cardiac catheterization would be diagnostic, the risk of permanent kidney injury is felt to be higher than the benefit and at this time the patient and her would like to wait and see if her physical condition improves enough to undergo catheterization at a later date. They are aware of her risk of sudden cardiac . She remains at high risk of further complications. Palliative care will continue to follow the patient during hospital course as condition evolves, to assist patient/decision-maker with understanding of their medical conditions, weighing benefits/burdens of treatment options, for clarification of goals of treatment. Additionally will assist with any symptoms of palliative concern. . Thank you for the opportunity to participate in the care of Ms. Buckley. Attestation To help prompt me to consider important information that might be impacting today's encounter and assessment, information from prior notes written by myself or my colleagues may have been "brought forward" into today's note. My signature on this note, however, is an attestation that I personally performed the exam, history, and/or decision-making noted today, and, unless otherwise indicated, the interactions with patient, family, and staff as well as the review of records all occurred today. I also attest that the listed assessment and stated plan reflect my best clinical judgment today based on the combination of historical information, prior notes, and today's exam/ interactions. When time spent is documented, it refers only to time spent today by the signer, or if indicated, combined time spent today by collaborating physician/nurse practitioner. . Quin Boogie Mar 05, 2017 14:07
[2017-03-05] MEDS: ACETAMINOPHEN/HYDROcodone 325 MG/5 MG TAB PO PRN (15:17)
--- NOTE | 2017-03-05 17:25 | HHI.PR ---
Subjective Remarks NO ACUTE DISTRESS ON O2 THERAPY sitting at bedside Objective Vital Signs Date Time Temp Pulse Resp B/P (MAP) Pulse Ox O2 Delivery O2 Flow Rate FiO2 03/05/17 17:00 80 14 156/73 (100) 95 03/05/17 16:00 75 03/05/17 16:00 75 15 160/72 (101) 96 03/05/17 15:00 75 03/05/17 14:00 78 03/05/17 13:01 78 21 165/78 (107) 95 03/05/17 13:01 78 03/05/17 12:01 70 16 137/66 (89) 96 03/05/17 12:01 70 03/05/17 12:00 71 03/05/17 12:00 71 23 96 03/05/17 10:00 84 03/05/17 08:21 97 Nasal Cannula 2.00 03/05/17 08:00 79 03/05/17 08:00 98.7 80 19 149/67 (94) 97 03/05/17 07:00 99 Nasal Cannula 2.00 03/05/17 06:00 38 03/05/17 04:00 98.0 91 26 175/91 (119) 98 03/05/17 04:00 91 03/05/17 02:00 73 03/05/17 00:00 97.5 73 18 134/59 (84) 99 03/05/17 00:00 73 03/04/17 22:00 77 03/04/17 20:00 98.2 75 14 160/85 (110) 96 03/04/17 20:00 75 03/04/17 19:00 98 Nasal Cannula 2.00 03/04/17 18:00 74 I/O 03/04/17 03/04/17 03/04/17 03/05/17 03/05/17 03/05/17 07:00 15:00 23:00 07:00 15:00 23:00 Intake Total 300 ml 250 ml 583 ml 154.3 ml Output Total 700 ml 350 ml Balance -400 ml -100 ml 583 ml 154.3 ml Intake Oral 300 ml 250 ml 500 ml 120 ml IV Total 83 ml 34.3 ml Output Urine Total 700 ml 350 ml # Voids 2 # Bowel Movements 0 Result Diagram: 12/6/17 0400 12/6/17 0400 Objective Remarks GENERAL: SKIN: Warm and dry. HEAD: Atraumatic. Normocephalic. EYES: Pupils equal and round. No scleral icterus. No injection or drainage. ENT: No nasal bleeding or discharge. Mucous membranes pink and moist. NECK: Trachea midline. No JVD. CARDIOVASCULAR: Regular rate and rhythm. RESPIRATORY: No accessory muscle use. Clear to auscultation. Breath sounds equal bilaterally. GASTROINTESTINAL: Abdomen soft, non-tender, nondistended. Hepatic and splenic margins not palpable. MUSCULOSKELETAL: Extremities without clubbing, cyanosis, or edema. No obvious deformities. NEUROLOGICAL: Awake and alert. No obvious cranial nerve deficits. Motor grossly within normal limits. Five out of 5 muscle strength in the arms and legs. Normal speech. PSYCHIATRIC: Appropriate mood and affect; insight and judgment normal. Assessment and Plan Assessment and Plan BILATERAL LUNG NODULES CAD PLAN BRONCHOSCOPY Karina Duran MD Mar 05, 2017 17:24
--- NOTE | 2017-03-05 19:04 | HHI.CCPN ---
Subjective Remarks/Hospital Course This is a 76-year-old female. Date of admission 02/27/2017. Date of consultation 02/28/2017. Past medical history includes coronary disease with history of 4 stents in 2001 2003, chronic systolic heart failure ejection fraction 40%, hypertension, anemia of chronic disease, chronic low back pain secondary spell stenosis requiring an implanted morphine intrathecal pump, history history of V. fib arrest,/pulmonary edema and hypoxic respiratory failure resulting in likely anoxic encephalopathy, gastritis and external hemorrhoids. Her recent significant history includes an episode of hyperkalemia with potassium of 7.8 leading to ventricular arrest with admission to [facility] on 11/14/16. She was placed on a ventilator and developed sepsis and pneumonia complications. She was discharged with trach and PEG to [facility] in [place] on 11/26/16 under the care of Dr. Bermudez. The patient was transferred to [facility] on 01/23/17 following trach decannulation. She was transferred to [facility] [place] [place] for hypoxic respiratory distress 02/03/17 and required intubation. EGD and colonoscopy performed due to anemia with findings of gastritis, diverticulosis, and 2 large external hemorrhoids. Arrest her status improved and she was extubated, PEG was removed as she was nutritionally improving, she began to make urine and was sent back to [facility] on 02/13/17. She has been suffering from residual anoxic encephalopathy and is a poor historian as a result. On 02/27/17, she was anticipating discharge from [facility] as she had met her goals. Her Port-A-Cath was removed by IR on the . She was also having some left sided chest pain related to Vas cath removal. She indicates she has not required dialysis for 3 weeks. The patient relates her symptoms to anxiety. Denies shortness of breath with ambulation, nausea, vomiting, diaphoresis, diarrhea, black or red stool, dysuria, hematuria, dizziness, or syncope. Her outpatient forge operator helper is Dr. Montaño in [place]. She reports that in October, she had an abnormal nuclear stress test and was told that one of her arteries was "clogged". At that time, according to the patient, her forge operator helper would not perform a cardiac catheterization due to poor renal function. Today, patient had episode of right-sided chest pain. This was thought to be of muscle skeletal nature. A fentanyl patch was placed and patient became more hypoxic secondary to strain causing part ischemia resulting in flash pulmonary edema. She was placed on BiPAP and given 1 dose of oral bumetanide and transferred to room 526. Subjective 03/01: Bradycardia is resolved. Being transfused 2 units per cc per cardiology. Abnormal CAT scan chest noted. Family requests Dr. King to see 03/02: No acute events overnight. Today patient went 8 blood or with 3-1 conduction, with self resolution. Dynamically stable systolic blood pressure 170s denies chest pain at this time. 03/03: No acute events overnight. No immediate plans for cardiac catheterization , secondary to multiple comorbidities at this time 03/04: Afebrile. Patient continues on heparin infusion has not been transitioned to Coumadin secondary to plans for bronchoscopy on 03/06. 03/05: Late entry note. Patient scheduled for bronchoscopy in a.m., continues on heparin infusion at this time. Plan for transition to Coumadin post bronchoscopy procedure. Plans for cardiac catheter at this time per request of patient and family, will consider it on an outpatient basis. Objective Vital Signs Date Time Temp Pulse Resp B/P (MAP) Pulse Ox O2 Delivery O2 Flow Rate FiO2 03/05/17 18:00 77 03/05/17 17:00 14 156/73 (100) 95 03/05/17 08:21 Nasal Cannula 2.00 03/05/17 08:00 98.7 03/02/17 01:15 35 Intake and Output 03/05/17 03/05/17 03/06/17 08:00 16:00 00:00 Intake Total 154.3 ml 850 ml Output Total 1250 ml Balance 154.3 ml -400 ml Result Diagram: 03/05/17 0400 03/05/17 0400 Imaging Last Impressions Chest CT 03/01/17 0000 Signed Impressions: Service Date/Time: Wednesday, March 01, 2017 11:07 - CONCLUSION: 1. Numerous bilateral subcentimeter pulmonary nodules concerning for metastatic disease. 2. Small bilateral pleural effusions and scattered groundglass densities could be infiltrate. 3. Coronary artery calcifications. Jean Paul Arvizu MD Abdomen/Pelvis CT 03/01/17 0000 Signed Impressions: Service Date/Time: Wednesday, March 01, 2017 11:07 - CONCLUSION: 1. Diverticulosis without diverticulitis. 2. Status post cholecystectomy. 3. Atrophic kidneys. 4. No mass or adenopathy. Jean Paul Arvizu MD Chest X-Ray 02/28/17 0000 Signed Impressions: Service Date/Time: Tuesday, February 28, 2017 13:02 - CONCLUSION: 1. Probable CHF. Duy Chen MD Objective Remarks GENERAL: This is a 76-year-old female, resting in bed on nasal cannula in no acute distress SKIN: Warm and dry. Well perfused HEAD: Atraumatic. Normocephalic. EYES: Pupils equal and round about 3 mm bilaterally and reactive. No scleral icterus. No injection or drainage. ENT: No nasal bleeding or discharge. Mucous membranes pink and moist. NECK: Trachea midline. No JVD. CARDIOVASCULAR: Regular rate and rhythm. S1, S2. No S4. Without murmur RESPIRATORY: To crackles appreciated in bases bilaterally. Symmetrical excursion.. GASTROINTESTINAL: Abdomen soft, distended. Hypoactive bowel sounds are appreciated. MUSCULOSKELETAL: Extremities with trace bilateral lower extremity edema. No obvious deformities. Left permacath removed with Steri-Strips old blood. Right Port-A-Cath is clean dry and intact without erythema NEUROLOGICAL: Awake and alert. No obvious cranial nerve deficits. Motor grossly within normal limits. 5/5 muscle strength in the arms and legs. Normal speech. 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 Anxiety Currently on quetiapine 100 Mg Twice a Day Fentanyl patch 50 g every 72 hours. Acetaminophen for fever Hydrocodone/acetaminophen 5/325 one tablet every 4 hours when necessary pain 1- 5 and morphine sulfate 2 mg IV every 2 hours. Pain 6-10 CV: Bradycardia - resolved Chest pain History of V. fib arrest secondary to hyperkalemia Chronic systolic heart failure ejection fraction 40% Coronary disease status post stent 4 Hypertension History of paroxysmal atrial fibrillation currently in first-degree AV block Followed by cardiology/Dr. Willard. Plan for cardiac catheterization possibly when stabilized Serial troponins EKG revealed first-degree AV block. ST-T depression in the inferior and lateral leads. Patient has a known ejection fraction 40-45%. Pulmonary artery pressures around 44 mmHg Currently on aspirin 81 mg daily On amiodarone 200 mg by mouth daily currently and hydralazine 100 mg every 8 hours, Isordil dinitrate 40 mg twice a day, carvedilol 12.5 mg twice a day and diltiazem 120 mg daily. Carvedilol initiated 03/02 and hold diltiazem today Pacer plans in place. Dopamine if needed Continue aspirin 81 mg daily Bumetanide 1 mg daily 03/03 plans to transition to Coumadin placed on hold secondary to plan for bronchoscopy 03/06 Resp: Acute respiratory failure Currently on nasal cannula to maintain saturations greater than or equal to 92% Incentive spirometry while awake Follow-up ABG and chest x-ray CT thorax reveals small bilateral pleural effusions, groundglass opacities and subcentimeter pulmonary nodules. Pulmonology following , Dr. Collins plans for bronchoscopy with biopsies 03/06 GI: Gastritis/history of gastric ulcer External hemorrhoids Hypoalbuminemia Patient is currently nothing by mouth except for medications Pantoprazole for GI prophylaxis Sucralfate 1 g 3 times a day history of gastric ulcers. On polyethylene glycol 17 g daily with constipation along with our bowel regimen docusate/senna 1 tablet twice a day : Olson catheter if indicated for accurate I's and O's in a critically ill patient Endo: Hyperglycemia History of partial thyroidectomy/parathyroidectomy Sliding-scale insulin with Accu-Cheks before meals/at bedtime to maintain euglycemia moderate regimen with Novulin R Renal: Chronic kidney disease stage IV. Nephrology actively following. Heme: Anemia of chronic kidney disease Elevated INR/PTT Chronic warfarin use Leukopenia Anemia Thrombocytopenia Monitor CBC Heparin drip to be continued. 03/01 Transfused 2 units PRBCs per cardiology's request ID: Monitor for infection FEN: Replace electrolytes as clinically indicated MSK: PT evaluate and treat Access - Utilize right Port-A-Cath. Prophylaxis - GI - pantoprazole - DVT - SCD/heparin drip Dispo: Level 3 Discussed with patient, Dr. Collins, Dr. Willard and [employer] at bedside Physician Sharon Alvares MD Mar 05, 2017 19:04
[2017-03-05 19:42] LABS: AUTOMATED NEUTROPHIL # 2.5 TH/MM3 (1.8-7.7); BASOPHIL % 0.9 % (0.0-2.0); EOSINOPHIL # 0.2 TH/MM3 (0-0.4); EOSINOPHIL % 4.8 % (0.0-4.0); HEMO FLAGS DIFF FINAL; LYMPH % 14.5 % (9.0-44.0); LYMPHOCYTE # 0.5 TH/MM3 (1.0-4.8); MEAN CELL VOLUME 88.9 FL (80.0-100.0); MEAN CORPUSCULAR HEMOGLOBIN 29.4 PG (27.0-34.0); MEAN CORPUSCULAR HGB CONC 33.1 % (32.0-36.0); MONO % 7.7 % (0.0-8.0); NEUT % 72.1 % (16.0-70.0); PLATELET COUNT 113 TH/MM3 (150-450); RED BLOOD COUNT 3.15 MIL/MM3 (4.00-5.30); RED CELL DISTRIBUTION WIDTH 18.5 % (11.6-17.2); WHITE BLOOD COUNT 3.4 TH/MM3 (4.0-11.0)
[2017-03-05 22:55] LABS: APTT (PATIENT) 42.2 SEC (24.3-30.1); INTERNATIONAL NORMALIZED RATIO 1.3 RATIO
[2017-03-05] MEDS: CHLORHEXIDINE GLUCONATE 2 % 1 PACK (2 CLOTHS) TOP SCH (23:25)
[2017-03-06] VITALS (14 sets, daily range): BP systolic 118–175; BP diastolic 58–84; PULSE 62–79; RESP 15–31; TEMP 97.9–98.3; O2SAT 94–99
[2017-03-06] MEDS: MORPHINE SULFATE 4 MG/ML INJ IV PUSH PRN (00:31)
[2017-03-06] MEDS: HEPARIN 25,000 UNITS-D5W 250 ML - PREMIX IV PRN (04:34)
[2017-03-06 05:19] LABS: APTT (PATIENT) 35.2 SEC (24.3-30.1)
[2017-03-06] MEDS: hydrALAZINE HCL 100 MG TAB PO SCH ×3 (05:36→21:13)
[2017-03-06] MEDS: HEPARIN SODIUM - IV 10,000 UNITS/10 ML VIAL IV PUSH PRN (05:36)
[2017-03-06] MEDS: INSULIN NovoLIN REGULAR SUPPLEMENTAL SCALE SQ SCH ×4 (08:00→21:00)
[2017-03-06] MEDS: ISOSORBIDE DINITRATE 40 MG SUSTAINED RELEASE TAB PO SCH ×2 (08:00→13:36)
[2017-03-06] MEDS: QUEtiapine FUMARATE 100 MG TAB PO SCH ×2 (08:32→21:10)
[2017-03-06] MEDS: ASPIRIN 81 MG CHEW TAB CHEW SCH (08:32)
[2017-03-06] MEDS: PANTOPRAZOLE SOD 40 MG DELAYED RELEASE TAB PO SCH (08:32)
[2017-03-06] MEDS: DOCUSATE SODIUM 50 MG/SENNA 8.6 MG TAB PO SCH ×2 (08:32→21:11)
[2017-03-06] MEDS: AMIODARONE 200 MG TAB PO SCH (08:32)
[2017-03-06] MEDS: CARVEDILOL 12.5 MG TAB PO SCH ×2 (08:32→21:11)
[2017-03-06] MEDS: SUCRALFATE 1 GM TAB PO SCH ×3 (08:32→18:04)
[2017-03-06] MEDS: BUMETANIDE 1 MG TAB PO SCH (08:32)
[2017-03-06] MEDS: POLYETHYLENE GLYCOL 17 GM PKG PO SCH (08:32)
[2017-03-06] MEDS: SODIUM CHLORIDE 0.9% FLUSH 10 ML FLUSH IV FLUSH SCH ×2 (08:33→21:09)
[2017-03-06] MEDS: CALCITONIN SALM 200 UNIT/SPRAY 3.7 ML BTLN NASAL SCH (08:33)
[2017-03-06] MEDS: MUPIROCIN 2% OINT 1 APPLIC/GM SYR EACH NARE SCH ×2 (08:34→21:09)
[2017-03-06] MEDS: ACETAMINOPHEN/HYDROcodone 325 MG/5 MG TAB PO PRN (08:35)
--- NOTE | 2017-03-06 10:40 | HHI.NPPN ---
Subjective History of Present Illness 76 y/o female with a PMH that includes A fib/flutter on chronic Coumadin, HTN, hyperlipidemia, CAD/ischemic cardiomyopathy. She also has CKD 4. In October she was seen in [place] ER with acute hyperkalemia and suffered cardiac arrest. She did survive, was on the ventilator for prolonged period with a trach, eventually weened off the vent and trach, and [facility] to [facility]. The patient had to be dialyzed emergently in October due to hyperkalemia. Additional Remarks patient is comfortable. No respiratory distress is noted. Renal function is stable. The patient and her are reconsidering if she would proceed with cardiac catheterization. Also is scheduled for bronchoscopy tomorrow because of findings of lung nodules. Review of Systems General Constitutional: Fatigue Cardiovascular Cardiac: Edema, SNYDER Objective Data Data Vital Signs Date Time Temp Pulse Resp B/P (MAP) Pulse Ox O2 Delivery O2 Flow Rate FiO2 03/06/17 08:58 97 Nasal Cannula 2.00 03/06/17 06:00 72 03/06/17 04:00 68 03/06/17 04:00 98.2 68 15 120/59 (79) 95 03/06/17 02:00 67 03/06/17 00:00 98.0 73 21 140/65 (90) 96 03/06/17 00:00 73 03/05/17 22:00 71 03/05/17 20:00 97.6 71 15 154/75 (101) 94 03/05/17 20:00 71 03/05/17 19:00 90 Nasal Cannula 2.00 03/05/17 18:00 77 03/05/17 17:00 80 14 156/73 (100) 95 03/05/17 16:00 75 03/05/17 16:00 75 15 160/72 (101) 96 03/05/17 15:00 75 03/05/17 14:00 78 03/05/17 13:01 78 21 165/78 (107) 95 03/05/17 13:01 78 03/05/17 12:01 70 16 137/66 (89) 96 03/05/17 12:01 70 03/05/17 12:00 71 03/05/17 12:00 71 23 96 -: 03/05/17 1850 03/05/17 0400 Physical Exam General Appearance: No Acute Distress, Comfortable Eyes Eye Exam: Pupils Equal Throat Throat Exam: Oral Mucosa [place] & Moist Pulmonary Resp Exam: Clear Bilaterally, Breath Sounds Equal, No Distress Cardiology CV Exam: Regular Gastrointestinal/Abdomen GI Exam: Soft, Non-Tender, Bowel Sounds Present Neurologic Neuro Exam: Alert, Awake Assessment/Plan Problem List: (1) Stage 4 chronic kidney disease ICD Codes: N18.4 - Chronic kidney disease, stage 4 (severe) Plan: Last HD was 02/12; PermCath was removed She is non oliguric No need for dialysis at this time. Renal function is stable, GFR at baseline. If she undergoes cardiac catheterization, risk associated with dye and ARF with HD was discussed (2) NSTEMI (non-ST elevated myocardial infarction) ICD Codes: I21.4 - Non-ST elevation (NSTEMI) myocardial infarction Plan: Cardiology following On heparin Gtt (3) Anemia in chronic renal disease ICD Codes: N18.9 - Chronic kidney disease, unspecified; D63.1 - Anemia in chronic kidney disease Status: Chronic Plan: Epogen can be given intermittently. (4) Paroxysmal A-fib ICD Codes: I48.0 - Paroxysmal atrial fibrillation Plan: Coumadin to be restarted. (5) Lung nodule, multiple ICD Codes: R91.8 - Other nonspecific abnormal finding of lung field Plan: Being followed by Pulmonary, bronchoscopy is planned. Bryan Salazar MD Mar 06, 2017 10:40
[2017-03-06] MEDS: ALPRAZolam 0.25 MG TAB PO PRN (10:59)
--- NOTE | 2017-03-06 12:24 | PD.CARD.PN ---
Subjective Subjective Remarks Feels better today No chest pain, no rib pain Objective Medications Current Medications Medications (Trade) Dose Ordered Sig/Yue Route Start Time Stop Time Status Last Admin (NS Flush) 2 ml UNSCH PRN IV FLUSH 02/27/17 21:30 (NS Flush) 2 ml BID IV FLUSH 02/28/17 09:00 03/06/17 08:33 (Narcan Inj) 0.4 mg UNSCH PRN IV PUSH 02/27/17 21:30 (Xanax) 0.25 mg Q8H PRN PO 02/27/17 21:45 03/06/17 10:59 (Cordarone) 200 mg DAILY PO 02/28/17 09:00 03/06/17 08:32 (Aspirin Chew) 81 mg DAILY CHEW 02/28/17 09:00 03/06/17 08:32 (Bumetanide) 1 mg DAILY PO 02/28/17 09:00 03/06/17 08:32 (Cardizem) 30 mg Q6HR PO 02/28/17 00:00 Future Hold 02/28/17 07:00 (Duragesic 50 Mcg Patch.72 Hr) 1 patch Q72H T-DERMAL 03/02/17 12:00 03/05/17 11:56 (Apresoline) 100 mg Q8HR PO 02/27/17 22:00 03/05/17 21:04 (Isordil Tembids Cr) 40 mg BID@08,14 PO 02/28/17 08:00 03/05/17 14:37 (SEROquel) 100 mg BID PO 02/28/17 09:00 03/06/17 08:32 Heparin Sodium/ Dextrose 250 ml @ 8 mls/hr TITRATE PRN IV 02/27/17 22:30 Future hold 03/06/17 04:34 (Heparin Inj) 5,000 units UNSCH PRN IV PUSH 02/27/17 22:30 (Heparin Inj) 2,500 units UNSCH PRN IV PUSH 02/27/17 22:30 03/06/17 05:36 (Protonix) 40 mg DAILY PO 02/28/17 09:00 03/06/17 08:32 (Miralax) 17 gm DAILY PO 03/01/17 09:00 03/06/17 08:32 (Carafate) 1 gm TID PO 02/28/17 13:00 03/06/17 08:32 Miscellaneous Information 1 Q3D T-DERMAL 03/02/17 12:00 03/05/17 11:56 (Tylenol) 650 mg Q6H PRN PO 02/28/17 13:15 03/01/17 16:18 ([place] 5-325 Mg) 1 tab Q4H PRN PO 02/28/17 13:15 03/06/17 08:35 (Morphine Inj) 2 mg Q2H PRN IV PUSH 02/28/17 13:15 03/06/17 00:31 (Zofran Inj) 4 mg Q6H PRN IV PUSH 02/28/17 13:15 (Albuterol Neb) 2.5 mg Q2HR NEB PRN INH 02/28/17 13:15 Miscellaneous Information 1 Q361D XX 02/28/17 13:15 02/28/17 13:15 (Chlorhexidine 2% Cloth) Taper DAILY@04 TOP 03/01/17 04:00 02/25/18 03:59 03/05/17 23:25 (Chlorhexidine 2% Cloth) 3 pack UNSCH PRN TOP 02/28/17 13:15 (Jacqueline-Colace) 1 tab BID PO 02/28/17 21:00 03/06/17 08:32 (Milk Of Magnesia Liq) 30 ml Q12H PRN PO 02/28/17 13:15 (Senokot) 17.2 mg Q12H PRN PO 02/28/17 13:15 (Dulcolax Supp) 10 mg DAILY PRN RECTAL 02/28/17 13:15 (Lactulose Liq) 30 ml DAILY PRN PO 02/28/17 13:15 (D50w (Vial) Inj) 50 ml UNSCH PRN IV PUSH 02/28/17 13:15 (Glucagon Inj) 1 mg UNSCH PRN OTHER 02/28/17 13:15 (NovoLIN R SUPPLEMENTAL SCALE) 1 ACHS SLIDING SCALE SQ 02/28/17 17:00 03/05/17 16:33 Dopamine HCl 1600 mg/Dextrose 250 ml @ 1.85 mls/hr TITRATE PRN IV 02/28/17 13:30 (Brethine Inj) 1 mg UNSCH PRN SQ 02/28/17 13:30 (Bactroban Nasal 2% Oint) 1 applic Taper BID EACH NARE 03/01/17 21:00 02/25/18 20:59 03/06/17 08:34 (Coreg) 12.5 mg Q12HR PO 03/01/17 21:00 03/06/17 08:32 Vital Signs / I&O Vital Signs Date Time Temp Pulse Resp B/P (MAP) Pulse Ox O2 Delivery O2 Flow Rate FiO2 03/06/17 08:58 97 Nasal Cannula 2.00 03/06/17 06:00 72 03/06/17 04:00 68 03/06/17 04:00 98.2 68 15 120/59 (79) 95 03/06/17 02:00 67 03/06/17 00:00 98.0 73 21 140/65 (90) 96 03/06/17 00:00 73 03/05/17 22:00 71 03/05/17 20:00 97.6 71 15 154/75 (101) 94 03/05/17 20:00 71 03/05/17 19:00 90 Nasal Cannula 2.00 03/05/17 18:00 77 03/05/17 17:00 80 14 156/73 (100) 95 03/05/17 16:00 75 03/05/17 16:00 75 15 160/72 (101) 96 03/05/17 15:00 75 03/05/17 14:00 78 03/05/17 13:01 78 21 165/78 (107) 95 03/05/17 13:01 78 I/O 03/05/17 03/05/17 03/05/17 03/06/17 03/06/17 03/06/17 07:00 15:00 23:00 07:00 15:00 23:00 Intake Total 154.3 ml 850 ml 671.5 ml Output Total 1250 ml Balance 154.3 ml -400 ml 671.5 ml Intake Oral 120 ml 850 ml 600 ml IV Total 34.3 ml 71.5 ml Output Urine Total 1250 ml # Voids 2 2 Physical Exam GENERAL: NAD, AAOx3 SKIN: Warm and dry. HEAD: Atraumatic. Normocephalic. EYES: Pupils equal and round. No scleral icterus. No injection or drainage. Right eye with ecchymosis from previous fall ENT: No nasal bleeding or discharge. Mucous membranes pink and moist. NECK: Trachea midline. No JVD. CARDIOVASCULAR: Regular rate and rhythm. RESPIRATORY: No accessory muscle use. Decreased breath sounds bilaterally GASTROINTESTINAL: Abdomen soft, non-tender, nondistended. Hepatic and splenic margins not palpable. MUSCULOSKELETAL: Extremities without clubbing, cyanosis, or edema. No obvious deformities. NEUROLOGICAL: Awake and alert. No obvious cranial nerve deficits. Motor grossly within normal limits. Five out of 5 muscle strength in the arms and legs. Normal speech. PSYCHIATRIC: Appropriate mood and affect; insight and judgment normal. Laboratory Laboratory Tests Test 03/05/17 18:50 03/05/17 22:09 03/06/17 04:50 White Blood Count 3.4 TH/MM3 Red Blood Count 3.15 MIL/MM3 Hemoglobin 9.3 GM/DL Hematocrit 28.0 % Mean Corpuscular Volume 88.9 FL Mean Corpuscular Hemoglobin 29.4 PG Mean Corpuscular Hemoglobin Concent 33.1 % Red Cell Distribution Width 18.5 % Platelet Count 113 TH/MM3 Mean Platelet Volume 8.6 FL Neutrophils (%) (Auto) 72.1 % Lymphocytes (%) (Auto) 14.5 % Monocytes (%) (Auto) 7.7 % Eosinophils (%) (Auto) 4.8 % Basophils (%) (Auto) 0.9 % Neutrophils # (Auto) 2.5 TH/MM3 Lymphocytes # (Auto) 0.5 TH/MM3 Monocytes # (Auto) 0.3 TH/MM3 Eosinophils # (Auto) 0.2 TH/MM3 Basophils # (Auto) 0.0 TH/MM3 CBC Comment DIFF FINAL Differential Comment Prothrombin Time 13.0 SEC Prothromb Time International Ratio 1.3 RATIO Activated Partial Thromboplast Time 42.2 SEC 35.2 SEC Assessment and Plan Problem List: (1) NSTEMI (non-ST elevated myocardial infarction) ICD Codes: I21.4 - Non-ST elevation (NSTEMI) myocardial infarction (2) H/O ventricular fibrillation ICD Codes: Z86.79 - Personal history of other diseases of the circulatory system (3) Paroxysmal A-fib ICD Codes: I48.0 - Paroxysmal atrial fibrillation (4) Systolic CHF ICD Codes: I50.20 - Unspecified systolic (congestive) heart failure (5) Acute kidney injury ICD Codes: N17.9 - Acute kidney failure, unspecified (6) Hypoxia ICD Codes: R09.02 - Hypoxemia (7) CAD (coronary artery disease) ICD Codes: I25.10 - Atherosclerotic heart disease of [place] coronary artery without angina pectoris (8) Anemia ICD Codes: D64.9 - Anemia, unspecified Assessment and Plan 1) Concern with NSTEMI, history of V.Fib arrest, history of pulmonary edema and ST depressions 03/03/17 Discussed extensively with the patient and her about consideration of cardiac catheterization, including risk, benefits and alternatives They would like to try to avoid and continue medical management due to overall concern for senior care HD and bleeding risk Discussed that I could do a diagnostic with minimal contrast, but they would like to hold off 03/05/17 Spoke to her orchid hand yesterday, Dr. Montaño, who felt she should be cathed due to obvious risk of significant disease and was going to call the patient's to discuss I once again went over everything this morning with the patient and her , as well as Dr. Montaño's recommendations Gave the option of: 1) Cath today 2) Con't medical management, and if things change can reassess to see about catheterization is very apprehensive about cardiac catheterization with her 4 month stay in the hospital and overall comorbidities He requested palliative care to see him and the patient to help with decision making and overall goals Will continue medical until further decisions are made 03/06/17 Seen by palliative care. Decision was made to continue with medical management. 2) Abnormal CT with multiple subcentimeter pulmonary nodules, concerning for possible METs Pulmonary following, planned bronch today 3) Afib Previously on Coumadin which was held for possible catheterization Restart Coumadin when possible 4) Case discussed with Dr. Meier and critical care nurse 5) No further cardiovascular work up, con't medical management Will see PRN, call with questions Problem Qualifiers (1) Anemia: Luis Enrique Willard DO Mar 06, 2017 12:24
[2017-03-06 14:12] LABS: APTT (PATIENT) 38.1 SEC (24.3-30.1)
[2017-03-06] MEDS ORDERED: DO NOT ADM ANY ANTICOAGULANT DRUGS PRN (15:41)
--- NOTE | 2017-03-06 15:58 | HHI.PR ---
Subjective Remarks NO ACUTE DISTRESS ON O2 THERAPY sitting at bedside Objective Vital Signs Date Time Temp Pulse Resp B/P (MAP) Pulse Ox O2 Delivery O2 Flow Rate FiO2 03/06/17 08:58 97 Nasal Cannula 2.00 03/06/17 07:00 98 Nasal Cannula 2.00 03/06/17 06:00 72 03/06/17 04:00 68 03/06/17 04:00 98.2 68 15 120/59 (79) 95 03/06/17 02:00 67 03/06/17 00:00 98.0 73 21 140/65 (90) 96 03/06/17 00:00 73 03/05/17 22:00 71 03/05/17 20:00 97.6 71 15 154/75 (101) 94 03/05/17 20:00 71 03/05/17 19:00 90 Nasal Cannula 2.00 03/05/17 18:00 77 03/05/17 17:00 80 14 156/73 (100) 95 03/05/17 16:00 75 03/05/17 16:00 75 15 160/72 (101) 96 I/O 03/05/17 03/05/17 03/05/17 03/06/17 03/06/17 03/06/17 07:00 15:00 23:00 07:00 15:00 23:00 Intake Total 154.3 ml 850 ml 671.5 ml Output Total 1250 ml Balance 154.3 ml -400 ml 671.5 ml Intake Oral 120 ml 850 ml 600 ml IV Total 34.3 ml 71.5 ml Output Urine Total 1250 ml # Voids 2 2 Result Diagram: 03/05/17 1850 03/05/17 0400 Objective Remarks GENERAL: SKIN: Warm and dry. HEAD: Atraumatic. Normocephalic. EYES: Pupils equal and round. No scleral icterus. No injection or drainage. ENT: No nasal bleeding or discharge. Mucous membranes pink and moist. NECK: Trachea midline. No JVD. CARDIOVASCULAR: Regular rate and rhythm. RESPIRATORY: No accessory muscle use. Clear to auscultation. Breath sounds equal bilaterally. GASTROINTESTINAL: Abdomen soft, non-tender, nondistended. Hepatic and splenic margins not palpable. MUSCULOSKELETAL: Extremities without clubbing, cyanosis, or edema. No obvious deformities. NEUROLOGICAL: Awake and alert. No obvious cranial nerve deficits. Motor grossly within normal limits. Five out of 5 muscle strength in the arms and legs. Normal speech. PSYCHIATRIC: Appropriate mood and affect; insight and judgment normal. Assessment and Plan Assessment and Plan BILATERAL LUNG NODULES CAD PLAN BRONCHOSCOPY TODAY Karina Collins MD Mar 06, 2017 15:58
--- NOTE | 2017-03-06 17:02 | MR ---
cc: BRENT KENNEDY M.D. DATE 03/06/17 PROCEDURE Fiberoptic bronchoscopy flexible REASON FOR PROCEDURE Bilateral lung nodules, rule out underlying malignancy, chronic inflammatory process or other PROCEDURE IN DETAIL Fiberoptic bronchoscopy performed via LMA. Vocal cords visualized appeared intact. Right under the vocal cords multiple sessile polypoid lesions are noted. Pinkish to whitish in color. The lower trachea appeared normal. The natalie was sharp. The right main stem bronchus, the right upper, middle and lower lobes, the left upper and lower lobes were without obstructive pathology, mass lesion or polypoid lesions. Washings obtained from both sides of the tracheobronchial tree for routine TB, fungal cultures, cytological exam. The bronchoscope was then withdrawn to the upper trachea. Biopsy of one of the polypoid lesions was taken, placed in formalin and sent for pathology for examination. Procedure was very well tolerated. The patient was transferred to recovery in stable condition. IMPRESSION 1. Polypoid lesions upper trachea 2. No obstruction or mass lesion otherwise. 3. Samples obtained as above. 4. Procedure well tolerated. 5. The patient transferred to recovery stable condition. MD ZACARIAS Alcantara/ /3:31 PM /4:35 PM
[2017-03-06] MEDS ORDERED: DEXT 5%-NACL 0.45% 1000 ML INJ 1,000 ML IV SCH (18:00)
--- NOTE | 2017-03-06 18:50 | HHI.CCPN ---
Subjective Remarks/Hospital Course This is a 76-year-old female. Date of admission 02/27/2017. Date of consultation 02/28/2017. Past medical history includes coronary disease with history of 4 stents in 2001 2003, chronic systolic heart failure ejection fraction 40%, hypertension, anemia of chronic disease, chronic low back pain secondary spell stenosis requiring an implanted morphine intrathecal pump, history history of V. fib arrest,/pulmonary edema and hypoxic respiratory failure resulting in likely anoxic encephalopathy, gastritis and external hemorrhoids. Her recent significant history includes an episode of hyperkalemia with potassium of 7.8 leading to ventricular arrest with admission to [facility] on 11/14/16. She was placed on a ventilator and developed sepsis and pneumonia complications. She was discharged with trach and PEG to [facility] in [place] on 11/26/16 under the care of Dr. Bermudez. The patient was transferred to [facility] on 01/23/17 following trach decannulation. She was transferred to [facility] for hypoxic respiratory distress 02/03/17 and required intubation. EGD and colonoscopy performed due to anemia with findings of gastritis, diverticulosis, and 2 large external hemorrhoids. Arrest her status improved and she was extubated, PEG was removed as she was nutritionally improving, she began to make urine and was sent back to [facility] on 02/13/17. She has been suffering from residual anoxic encephalopathy and is a poor historian as a result. On 02/27/17, she was anticipating discharge from [facility] as she had met her goals. Her Port-A-Cath was removed by IR on the . She was also having some left sided chest pain related to Vas cath removal. She indicates she has not required dialysis for 3 weeks. The patient relates her symptoms to anxiety. Denies shortness of breath with ambulation, nausea, vomiting, diaphoresis, diarrhea, black or red stool, dysuria, hematuria, dizziness, or syncope. Her outpatient dining car hop is Dr. Montaño in [place]. She reports that in October, she had an abnormal nuclear stress test and was told that one of her arteries was "clogged". At that time, according to the patient, her dining car hop would not perform a cardiac catheterization due to poor renal function. Today, patient had episode of right-sided chest pain. This was thought to be of muscle skeletal nature. A fentanyl patch was placed and patient became more hypoxic secondary to strain causing part ischemia resulting in flash pulmonary edema. She was placed on BiPAP and given 1 dose of oral bumetanide and transferred to room 526. Subjective 03/01: Bradycardia is resolved. Being transfused 2 units per cc per cardiology. Abnormal CAT scan chest noted. Family requests Dr. King to see 03/02: No acute events overnight. Today patient went 8 blood or with 3-1 conduction, with self resolution. Dynamically stable systolic blood pressure 170s denies chest pain at this time. 03/03: No acute events overnight. No immediate plans for cardiac catheterization , secondary to multiple comorbidities at this time 03/04: Afebrile. Patient continues on heparin infusion has not been transitioned to Coumadin secondary to plans for bronchoscopy on 03/06. 03/05: Late entry note. Patient scheduled for bronchoscopy in a.m., continues on heparin infusion at this time. Plan for transition to Coumadin post bronchoscopy procedure. Plans for cardiac catheter at this time per request of patient and family, will consider it on an outpatient basis. 03/06:No acute events. Pt is S/P bronchoscopy this afternoon, pathology pending. Heparin infusion resumed. Objective Vital Signs Date Time Temp Pulse Resp B/P (MAP) Pulse Ox O2 Delivery O2 Flow Rate FiO2 03/06/17 16:00 97.6 74 16 156/76 (102) 97 Nasal Cannula 2 Intake and Output 03/06/17 03/06/17 03/07/17 08:00 16:00 00:00 Intake Total 671.5 ml Balance 671.5 ml Result Diagram: 03/05/17 1850 03/05/17 0400 Imaging Last Impressions Chest CT 03/01/17 0000 Signed Impressions: Service Date/Time: Wednesday, March 01, 2017 11:07 - CONCLUSION: 1. Numerous bilateral subcentimeter pulmonary nodules concerning for metastatic disease. 2. Small bilateral pleural effusions and scattered groundglass densities could be infiltrate. 3. Coronary artery calcifications. Jean Paul Arvizu MD Abdomen/Pelvis CT 03/01/17 0000 Signed Impressions: Service Date/Time: Wednesday, March 01, 2017 11:07 - CONCLUSION: 1. Diverticulosis without diverticulitis. 2. Status post cholecystectomy. 3. Atrophic kidneys. 4. No mass or adenopathy. Jean Paul Arvizu MD Chest X-Ray 02/28/17 0000 Signed Impressions: Service Date/Time: Tuesday, February 28, 2017 13:02 - CONCLUSION: 1. Probable CHF. Duy Chen MD Objective Remarks GENERAL: This is a 76-year-old female, resting in bed in no acute distress SKIN: Warm and dry. Well perfused HEAD: Atraumatic. Normocephalic. EYES: Pupils equal and round about 3 mm bilaterally and reactive. No scleral icterus. No injection or drainage. ENT: No nasal bleeding or discharge. Mucous membranes pink and moist. NECK: Trachea midline. No JVD. CARDIOVASCULAR: Regular rate and rhythm. S1, S2. No S4. Without murmur RESPIRATORY: To crackles appreciated in bases bilaterally. Symmetrical excursion.. GASTROINTESTINAL: Abdomen soft, distended. Hypoactive bowel sounds are appreciated. MUSCULOSKELETAL: Extremities with trace bilateral lower extremity edema. No obvious deformities. Left permacath removed with Steri-Strips old blood. Right Port-A-Cath is clean dry and intact without erythema NEUROLOGICAL: Awake and alert. No obvious cranial nerve deficits. Motor grossly within normal limits. 5/5 muscle strength in the arms and legs. Normal speech. 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 Anxiety Currently on quetiapine 100 Mg Twice a Day Fentanyl patch 50 g every 72 hours. Acetaminophen for fever Hydrocodone/acetaminophen 5/325 one tablet every 4 hours when necessary pain 1- 5 and morphine sulfate 2 mg IV every 2 hours. Pain 6-10 CV: Bradycardia - resolved Chest pain History of V. fib arrest secondary to hyperkalemia Chronic systolic heart failure ejection fraction 40% Coronary disease status post stent 4 Hypertension History of paroxysmal atrial fibrillation currently in first-degree AV block Followed by cardiology/Dr. Willard. Plan for cardiac catheterization possibly when stabilized Serial troponins EKG revealed first-degree AV block. ST-T depression in the inferior and lateral leads. Patient has a known ejection fraction 40-45%. Pulmonary artery pressures around 44 mmHg Currently on aspirin 81 mg daily On amiodarone 200 mg by mouth daily currently and hydralazine 100 mg every 8 hours, Isordil dinitrate 40 mg twice a day, carvedilol 12.5 mg twice a day and diltiazem 120 mg daily. Carvedilol initiated 03/02 and hold diltiazem today Continue aspirin 81 mg daily Bumetanide 1 mg daily 03/06 plans to transition to Coumadin, now post bronch Resp: Acute respiratory failure Currently on nasal cannula to maintain saturations greater than or equal to 92% Incentive spirometry while awake Follow-up ABG and chest x-ray CT thorax reveals small bilateral pleural effusions, groundglass opacities and subcentimeter pulmonary nodules. Pulmonology following , Dr. Collins S/P bronchoscopy with biopsies 03/06 GI: Gastritis/history of gastric ulcer External hemorrhoids Hypoalbuminemia Patient is currently nothing by mouth except for medications Pantoprazole for GI prophylaxis Sucralfate 1 g 3 times a day history of gastric ulcers. On polyethylene glycol 17 g daily with constipation along with our bowel regimen docusate/senna 1 tablet twice a day : Olson catheter if indicated for accurate I's and O's in a critically ill patient Endo: Hyperglycemia History of partial thyroidectomy/parathyroidectomy Sliding-scale insulin with Accu-Cheks before meals/at bedtime to maintain euglycemia moderate regimen with Novulin R Renal: Chronic kidney disease stage IV. Nephrology actively following. Heme: Anemia of chronic kidney disease Elevated INR/PTT Chronic warfarin use Leukopenia Anemia Thrombocytopenia Monitor CBC Heparin drip to be continued. 03/01 Transfused 2 units PRBCs per cardiology's request ID: Monitor for infection FEN: Replace electrolytes as clinically indicated MSK: PT evaluate and treat Access - Utilize right Port-A-Cath. Prophylaxis - GI - pantoprazole - DVT - SCD/heparin drip resumed post bronch Dispo: Level 3 Discussed with patient, Dr. Willard and TOOL INSPECTOR at bedside Physician Sharon Alvares MD Mar 06, 2017 18:50
[2017-03-06 23:27] LABS: APTT (PATIENT) 39.8 SEC (24.3-30.1)
[2017-03-07] VITALS (14 sets, daily range): BP systolic 109–165; BP diastolic 53–74; PULSE 37–83; RESP 14–20; TEMP 97.5–98.7; O2SAT 95–100
[2017-03-07] MEDS: CHLORHEXIDINE GLUCONATE 2 % 1 PACK (2 CLOTHS) TOP SCH (04:00)
[2017-03-07 05:08] LABS: AUTOMATED NEUTROPHIL # 1.7 TH/MM3 (1.8-7.7); BASOPHIL % 0.9 % (0.0-2.0); EOSINOPHIL # 0.1 TH/MM3 (0-0.4); EOSINOPHIL % 5.7 % (0.0-4.0); HEMATOCRIT 28.8 % (35.0-46.0); HEMO FLAGS DIFF FINAL; LYMPH % 22.9 % (9.0-44.0); LYMPHOCYTE # 0.6 TH/MM3 (1.0-4.8); MEAN CELL VOLUME 89.7 FL (80.0-100.0); MEAN CORPUSCULAR HEMOGLOBIN 30.1 PG (27.0-34.0); MEAN CORPUSCULAR HGB CONC 33.5 % (32.0-36.0); MONO % 7.4 % (0.0-8.0); NEUT % 63.1 % (16.0-70.0); PLATELET COUNT 103 TH/MM3 (150-450); RED BLOOD COUNT 3.22 MIL/MM3 (4.00-5.30); RED CELL DISTRIBUTION WIDTH 18.1 % (11.6-17.2); WHITE BLOOD COUNT 2.6 TH/MM3 (4.0-11.0)
[2017-03-07 05:15] LABS: APTT (PATIENT) 39.9 SEC (24.3-30.1)
[2017-03-07] MEDS: hydrALAZINE HCL 100 MG TAB PO SCH ×3 (06:17→22:59)
[2017-03-07] MEDS: MORPHINE SULFATE 4 MG/ML INJ IV PUSH PRN ×2 (07:48→20:41)
[2017-03-07] MEDS: SUCRALFATE 1 GM TAB PO SCH ×3 (07:48→17:42)
[2017-03-07] MEDS: BUMETANIDE 1 MG TAB PO SCH (07:48)
[2017-03-07] MEDS: MUPIROCIN 2% OINT 1 APPLIC/GM SYR EACH NARE SCH ×2 (07:48→20:38)
[2017-03-07] MEDS: ASPIRIN 81 MG CHEW TAB CHEW SCH (07:49)
[2017-03-07] MEDS: QUEtiapine FUMARATE 100 MG TAB PO SCH ×2 (07:49→20:39)
[2017-03-07] MEDS: CARVEDILOL 12.5 MG TAB PO SCH ×2 (07:49→20:39)
[2017-03-07] MEDS: AMIODARONE 200 MG TAB PO SCH (07:49)
[2017-03-07] MEDS: ISOSORBIDE DINITRATE 40 MG SUSTAINED RELEASE TAB PO SCH ×2 (07:49→14:00)
[2017-03-07] MEDS: SODIUM CHLORIDE 0.9% FLUSH 10 ML FLUSH IV FLUSH SCH ×2 (07:49→20:39)
[2017-03-07] MEDS: DOCUSATE SODIUM 50 MG/SENNA 8.6 MG TAB PO SCH ×2 (07:49→20:39)
[2017-03-07] MEDS: CALCITONIN SALM 200 UNIT/SPRAY 3.7 ML BTLN NASAL SCH (07:50)
[2017-03-07] MEDS: POLYETHYLENE GLYCOL 17 GM PKG PO SCH (07:50)
[2017-03-07] MEDS: PANTOPRAZOLE SOD 40 MG DELAYED RELEASE TAB PO SCH (07:52)
[2017-03-07] MEDS: INSULIN NovoLIN REGULAR SUPPLEMENTAL SCALE SQ SCH ×4 (08:00→20:51)
--- NOTE | 2017-03-07 10:46 | HHI.NPPN ---
Subjective History of Present Illness 76 y/o female with a PMH that includes A fib/flutter on chronic Coumadin, HTN, hyperlipidemia, CAD/ischemic cardiomyopathy. She also has CKD 4. In October she was seen in [place] ER with acute hyperkalemia and suffered cardiac arrest. She did survive, was on the ventilator for prolonged period with a trach, eventually weened off the vent and trach, and transferred to [facility] and later to [facility]. The patient had to be dialyzed emergently in October due to hyperkalemia. Additional Remarks patient is comfortable. No respiratory distress is noted. Renal function is stable. Review of Systems General Constitutional: Fatigue Cardiovascular Cardiac: Edema, SNYDER Objective Data Data Vital Signs Date Time Temp Pulse Resp B/P (MAP) Pulse Ox O2 Delivery O2 Flow Rate FiO2 03/07/17 10:00 61 03/07/17 08:29 100 Nasal Cannula 2.00 03/07/17 08:00 98.4 71 16 139/63 (88) 97 03/07/17 08:00 78 03/07/17 07:53 20 03/07/17 07:00 98 Nasal Cannula 2.00 03/07/17 06:00 59 03/07/17 04:00 55 03/07/17 04:00 97.7 68 20 120/59 (79) 99 03/07/17 02:00 74 03/07/17 00:00 74 03/07/17 00:00 98.5 74 18 109/53 (71) 95 03/06/17 22:00 75 03/06/17 21:00 99 Nasal Cannula 2.00 03/06/17 20:00 98.3 75 17 147/65 (92) 96 03/06/17 20:00 75 03/06/17 19:00 97 Nasal Cannula 2.00 03/06/17 18:00 74 03/06/17 16:00 98.0 175/77 (109) 98 03/06/17 16:00 97.6 74 16 156/76 (102) 97 Nasal Cannula 2 03/06/17 16:00 79 03/06/17 15:45 80 18 121/57 (78) 98 Nasal Cannula 2 03/06/17 15:30 97.6 70 18 121/57 (78) 94 Nasal Cannula 2 03/06/17 14:00 78 03/06/17 12:00 64 03/06/17 12:00 98.1 64 16 118/58 (78) 96 -: 03/07/17 0432 03/05/17 0400 Microbiology 03/06/17 Fungal Smear, Received Pending 03/06/17 Fungal Culture, Received Pending 03/06/17 Acid Fast Stain, Received Pending 03/06/17 Mycobacterial Culture, Received Pending 03/06/17 Gram Stain, Received Pending 03/06/17 Bronchial Culture, Received Pending Physical Exam General Appearance: No Acute Distress, Comfortable Eyes Eye Exam: Pupils Equal Throat Throat Exam: Oral Mucosa [place] & Moist Pulmonary Resp Exam: Clear Bilaterally, Breath Sounds Equal, No Distress Cardiology CV Exam: Regular Gastrointestinal/Abdomen GI Exam: Soft, Non-Tender, Bowel Sounds Present Neurologic Neuro Exam: Alert, Awake Assessment/Plan Problem List: (1) Stage 4 chronic kidney disease ICD Codes: N18.4 - Chronic kidney disease, stage 4 (severe) Plan: Last HD was 02/12; PermCath was removed She is non oliguric No need for dialysis at this time. Renal function is stable, GFR at baseline. low WBC monitor (2) NSTEMI (non-ST elevated myocardial infarction) ICD Codes: I21.4 - Non-ST elevation (NSTEMI) myocardial infarction Plan: Cardiology following On heparin Gtt (3) Anemia in chronic renal disease ICD Codes: N18.9 - Chronic kidney disease, unspecified; D63.1 - Anemia in chronic kidney disease Status: Chronic Plan: Epogen can be given intermittently. (4) Paroxysmal A-fib ICD Codes: I48.0 - Paroxysmal atrial fibrillation Plan: Coumadin to be restarted. (5) Lung nodule, multiple ICD Codes: R91.8 - Other nonspecific abnormal finding of lung field Plan: Being followed by Pulmonary, bronchoscopy done follow results Bryan Salazar MD Mar 07, 2017 10:46
[2017-03-07] MEDS: ACETAMINOPHEN 325 MG TAB PO PRN (11:47)
--- NOTE | 2017-03-07 14:41 | HHI.HCPN ---
Reason for visit a. To assist with evaluation and management of symptoms including: Dyspnea, pain b. To assist medical decision maker(s) with: better understanding of current medical conditions; weighing benefits/burdens of medical treatment options; making medical treatment decisions. (Quin Boogie) Subjective/Interval History Seen in ICU for follow-up on goals of care and symptom management. She underwent bronchoscopy yesterday, cytology and biopsy pending. Bronchial washings were sent for routine TB, fungal cultures and psychological exam. Multiple sessile polypoid lesions were noted under the vocal cords and biopsy of one was taken and sent for pathology. She complains of fatigue and chronic discomfort under right axilla, reproducible to palpation, today but otherwise has no complaints. CONSULTATIONS * Cardiology: 2-D echocardiogram done 02/28 showed an EF of 40-45%. History of 4 stents previously with reportedly abnormal nuclear stress study done by her cloud engagement partner, Dr. Dedrick Montaño. Cardiac catheterization has not yet been done due to her renal dysfunction and medical management was being used for treatment. She is followed by Dr. Willard now and cardiac catheterization has not been done at this time due to an elevated INR, thrombocytopenia and renal dysfunction. He feels that she most likely has significant coronary artery disease given her prior presentation of V. fib arrest and pulmonary edema. Given her multiple comorbidities, he feels she would be a poor bypass candidate. At this time the family has chosen conservative medical management pending results of the bronchoscopy and biopsy. * Nephrology: Currently no need for dialysis. Estimates the risk for acute kidney injury at 26% if she chooses cardiac catheterization with a risk for dialysis about 1-2% if approximately 100 mL of iodinated contrast is used. Recommend intermittent Epogen for anemia. * Pulmonology: CT of the chest 03/01 showed numerous bilateral subcentimeter pulmonary nodules concerning for metastatic disease and pulmonary was consulted for evaluation. Bronchoscopy done 03/06, cytology and pathology pending. . Family/friend interactions Discussed findings of the bronchoscopy and expected turnaround time for cytology and pathology with patient and . All questions answered. . (Quin Boogie) Advance Directives Living Will: Copy in medical record Health Care Surrogate: Never completed Durable Power of Low Pressure Firer: Never completed (Quin Boogie) Objective Vital Signs Date Time Temp Pulse Resp B/P (MAP) Pulse Ox O2 Delivery O2 Flow Rate FiO2 03/07/17 12:47 16 03/07/17 12:00 37 03/07/17 12:00 98.6 37 18 138/72 (94) 99 03/07/17 10:00 61 03/07/17 08:29 100 Nasal Cannula 2.00 03/07/17 08:00 98.4 71 16 139/63 (88) 97 03/07/17 08:00 78 03/07/17 07:53 20 03/07/17 07:00 98 Nasal Cannula 2.00 03/07/17 06:00 59 03/07/17 04:00 55 03/07/17 04:00 97.7 68 20 120/59 (79) 99 03/07/17 02:00 74 03/07/17 00:00 74 03/07/17 00:00 98.5 74 18 109/53 (71) 95 03/06/17 22:00 75 03/06/17 21:00 99 Nasal Cannula 2.00 03/06/17 20:00 98.3 75 17 147/65 (92) 96 03/06/17 20:00 75 03/06/17 19:00 97 Nasal Cannula 2.00 03/06/17 18:00 74 03/06/17 16:00 98.0 175/77 (109) 98 03/06/17 16:00 97.6 74 16 156/76 (102) 97 Nasal Cannula 2 03/06/17 16:00 79 03/06/17 15:45 80 18 121/57 (78) 98 Nasal Cannula 2 03/06/17 15:30 97.6 70 18 121/57 (78) 94 Nasal Cannula 2 Intake & Output 03/07/17 03/07/17 07:00 19:00 Intake Total 240 ml Balance 240 ml Intake Oral 240 ml # Voids 2 # Bowel Movements 0 Physical Exam CONSTITUTIONAL/GENERAL: This is an adequately nourished patient, in no apparent distress. TUBES/LINES/DRAINS: Right subclavian central line. ENT: Hard of hearing. Nose without bleeding or purulent drainage. Throat without visible erythema, exudates, masses, or lesions. NECK: Trachea midline. Supple, nontender. No palpable thyroid enlargement or nodularity. CARDIOVASCULAR: Regular rate and rhythm without gallops, or rubs. 2/6 systolic ejection murmur heard at the left sternal border. No JVD. Peripheral pulses symmetric. RESPIRATORY/CHEST: Symmetric, unlabored respirations. Clear, diminished to auscultation. Breath sounds equal bilaterally. No wheezes, rales, or rhonchi. GASTROINTESTINAL: Abdomen soft, non-tender, nondistended. No hepato-splenomegaly , or palpable masses. No guarding. Bowel sounds present. GENITOURINARY: Without palpable bladder distension. MUSCULOSKELETAL: Extremities without clubbing, cyanosis, or edema. No joint tenderness or effusion noted. No calf tenderness. No mottling or clubbing. NEUROLOGICAL: Awake and alert. Motor and sensory grossly within normal limits. Follows commands. Moves all extremities. PSYCHIATRIC: No obvious anxiety/depression. no apparent hallucinations or other psychotic thought process. . (Quin Boogie) Diagnostic Tests Laboratory Laboratory Tests Test 03/04/17 19:41 03/05/17 02:46 03/05/17 04:00 03/05/17 18:50 Activated Partial Thromboplast Time 41.8 SEC (24.3-30.1) 41.3 SEC (24.3-30.1) Prothrombin Time 14.0 SEC (9.8-11.6) Prothromb Time International Ratio 1.4 RATIO White Blood Count 3.0 TH/MM3 (4.0-11.0) 3.4 TH/MM3 (4.0-11.0) Red Blood Count 2.94 MIL/MM3 (4.00-5.30) 3.15 MIL/MM3 (4.00-5.30) Hemoglobin 8.9 GM/DL (11.6-15.3) 9.3 GM/DL (11.6-15.3) Hematocrit 26.5 % (35.0-46.0) 28.0 % (35.0-46.0) Mean Corpuscular Volume 90.1 FL (80.0-100.0) 88.9 FL (80.0-100.0) Mean Corpuscular Hemoglobin 30.1 PG (27.0-34.0) 29.4 PG (27.0-34.0) Mean Corpuscular Hemoglobin Concent 33.5 % (32.0-36.0) 33.1 % (32.0-36.0) Red Cell Distribution Width 18.8 % (11.6-17.2) 18.5 % (11.6-17.2) Platelet Count 94 TH/MM3 (150-450) 113 TH/MM3 (150-450) Mean Platelet Volume 8.8 FL (7.0-11.0) 8.6 FL (7.0-11.0) Neutrophils (%) (Auto) 68.9 % (16.0-70.0) 72.1 % (16.0-70.0) Lymphocytes (%) (Auto) 16.2 % (9.0-44.0) 14.5 % (9.0-44.0) Monocytes (%) (Auto) 8.9 % (0.0-8.0) 7.7 % (0.0-8.0) Eosinophils (%) (Auto) 5.3 % (0.0-4.0) 4.8 % (0.0-4.0) Basophils (%) (Auto) 0.7 % (0.0-2.0) 0.9 % (0.0-2.0) Neutrophils # (Auto) 2.1 TH/MM3 (1.8-7.7) 2.5 TH/MM3 (1.8-7.7) Lymphocytes # (Auto) 0.5 TH/MM3 (1.0-4.8) 0.5 TH/MM3 (1.0-4.8) Monocytes # (Auto) 0.3 TH/MM3 (0-0.9) 0.3 TH/MM3 (0-0.9) Eosinophils # (Auto) 0.2 TH/MM3 (0-0.4) 0.2 TH/MM3 (0-0.4) Basophils # (Auto) 0.0 TH/MM3 (0-0.2) 0.0 TH/MM3 (0-0.2) CBC Comment AUTO DIFF DIFF FINAL Differential Comment AUTO DIFF CONFIRMED Platelet Estimate LOW (NORMAL) Platelet Morphology Comment NORMAL (NORMAL) Blood Urea Nitrogen 49 MG/DL (7-18) Creatinine 2.37 MG/DL (0.50-1.00) Random Glucose 75 MG/DL (74-106) Albumin 2.7 GM/DL (3.4-5.0) Calcium Level 9.4 MG/DL (8.5-10.1) Phosphorus Level 3.2 MG/DL (2.5-4.9) Magnesium Level 1.6 MG/DL (1.5-2.5) Sodium Level 136 MEQ/L (136-145) Potassium Level 3.9 MEQ/L (3.5-5.1) Chloride Level 101 MEQ/L (98-107) Carbon Dioxide Level 27.0 MEQ/L (21.0-32.0) Anion Gap 8 MEQ/L (5-15) Estimat Glomerular Filtration Rate 20 ML/MIN (>89) Test 03/05/17 22:09 03/06/17 04:50 03/06/17 13:30 03/06/17 22:36 Prothrombin Time 13.0 SEC (9.8-11.6) Prothromb Time International Ratio 1.3 RATIO Activated Partial Thromboplast Time 42.2 SEC (24.3-30.1) 35.2 SEC (24.3-30.1) 38.1 SEC (24.3-30.1) 39.8 SEC (24.3-30.1) Test 03/07/17 04:30 03/07/17 04:32 Activated Partial Thromboplast Time 39.9 SEC (24.3-30.1) White Blood Count 2.6 TH/MM3 (4.0-11.0) Red Blood Count 3.22 MIL/MM3 (4.00-5.30) Hemoglobin 9.7 GM/DL (11.6-15.3) Hematocrit 28.8 % (35.0-46.0) Mean Corpuscular Volume 89.7 FL (80.0-100.0) Mean Corpuscular Hemoglobin 30.1 PG (27.0-34.0) Mean Corpuscular Hemoglobin Concent 33.5 % (32.0-36.0) Red Cell Distribution Width 18.1 % (11.6-17.2) Platelet Count 103 TH/MM3 (150-450) Mean Platelet Volume 8.7 FL (7.0-11.0) Neutrophils (%) (Auto) 63.1 % (16.0-70.0) Lymphocytes (%) (Auto) 22.9 % (9.0-44.0) Monocytes (%) (Auto) 7.4 % (0.0-8.0) Eosinophils (%) (Auto) 5.7 % (0.0-4.0) Basophils (%) (Auto) 0.9 % (0.0-2.0) Neutrophils # (Auto) 1.7 TH/MM3 (1.8-7.7) Lymphocytes # (Auto) 0.6 TH/MM3 (1.0-4.8) Monocytes # (Auto) 0.2 TH/MM3 (0-0.9) Eosinophils # (Auto) 0.1 TH/MM3 (0-0.4) Basophils # (Auto) 0.0 TH/MM3 (0-0.2) CBC Comment DIFF FINAL Differential Comment (Quin Boogie) Result Diagram: 03/07/17 0432 03/05/17 0400 Microbiology Microbiology Date/Time Source Procedure Growth Status 03/06/17 15:23 Bronchial Washings Other Fungal Smear - Final NO FUNGAL ELEMENTS SEEN. Resulted 03/06/17 15:23 Bronchial Washings Other Fungal Culture Pending Resulted 03/06/17 15:23 Bronchial Washings Bronchial Acid Fast Stain - Final NO ACID FAST BACILLI SEEN Resulted 03/06/17 15:23 Bronchial Washings Bronchial Mycobacterial Culture Pending Resulted 03/06/17 15:23 Bronchial Washings Bronchial Gram Stain - Final Resulted 03/06/17 15:23 Bronchial Washings Bronchial Bronchial Culture - Preliminary IMMATURE GROWTH - REINCUBATE Resulted Imaging Last Impressions Chest X-Ray 03/05/17 0600 Signed Impressions: Service Date/Time: Sunday, March 05, 2017 04:31 - CONCLUSION: No acute disease. Guicho Herrera MD Chest CT 03/01/17 0000 Signed Impressions: Service Date/Time: Wednesday, March 01, 2017 11:07 - CONCLUSION: 1. Numerous bilateral subcentimeter pulmonary nodules concerning for metastatic disease. 2. Small bilateral pleural effusions and scattered groundglass densities could be infiltrate. 3. Coronary artery calcifications. Jean Paul Arvizu MD Abdomen/Pelvis CT 03/01/17 0000 Signed Impressions: Service Date/Time: Wednesday, March 01, 2017 11:07 - CONCLUSION: 1. Diverticulosis without diverticulitis. 2. Status post cholecystectomy. 3. Atrophic kidneys. 4. No mass or adenopathy. Jean Paul Arvizu MD Procedures 03/06: Bronchoscopy with polypoid biopsy (Quin Boogie) Assessment and Plan Disease Oriented Problem List: (1) Acute renal failure (2) Anoxic encephalopathy (3) Presence of implanted infusion pump (4) Hypertension, essential (5) CAD (coronary artery disease) (6) Acute respiratory failure (7) Paroxysmal A-fib (8) Systolic CHF (9) Chronic back pain (10) Lung nodule, multiple Symptom Scale: (1) Dyspnea and respiratory abnormalities 0-10 Scale: Unable to quantify (dyspnea on exertion) (2) Pain, generalized 0-10 Scale: Unable to quantify (right chest wall) Pertinent Non-Medical Issues Psychosocial:Born in [place], [place], she moved around the country with her family because of her father's job. 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 She retired to [place] several years ago with her . She did have one child which she lost. . 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 She would like to be visited by a alteration workroom supervisor and receive sacraments of the sick. . Legal: She is and her would be her proxy decision maker. She agrees with him making her decisions. . Ethical issues impacting care: None noted. . Important Contacts : Wayne Buckley , cell . Prognosis Her prognosis is poor. Her heart function is decreased with an ejection fraction of 40-45%. She has already had a V. fib cardiac arrest. Per the cloud engagement partner evaluation he feels that she does have significant ischemic disease , however she also has renal disease and has recently been on dialysis. As she is not a candidate for cardiac bypass, the cardiac catheterization with possible stent placement would present her with a higher risk than benefit ratio. This has been confirmed by not only the cloud engagement partner but also Dr. King who is a personal friend of the patient's. Nephrology feels that she would have a 26% risk of sustaining further kidney damage with 1-2% risk of permanent dialysis from undergoing a cardiac catheterization. As Dr. Willard feels that limited intervention will be available from the cardiac catheterization and Dr. King, who was requested to give a second opinion, also agrees that the risk is higher than the benefit, patient and have decided at this time to hold on cardiac catheterization, particularly in light of the CT findings of multiple subcentimeter pulmonary nodules suspicious for metastatic disease. She has agreed to undergo bronchoscopy for further diagnosis but at this time wishes to hold on further aggressive procedures until the biopsy is received for the pulmonary nodules. The bronchoscopy itself however presents a risk as she has been intubated multiple times since October of this year. . Code Status: Full Code Plan PLAN: Legal decision maker: The patient is able to participate in decision-making but does have a mild anoxic encephalopathy. Per [place] statutes would be the proxy decision-maker, and he is willing to serve in that role. The states that she is happy to have him make the decisions. Goals: Aggressive FULL CODE CODE STATUS: SYMPTOMS: * Dyspnea: She has chronic anemia, which has been worked up by her continuous churn buttermaker , Dr. Lemos and found to be multi-factorial to include anemia of chronic disease, iron deficiency anemia and vitamin B-12 deficiency, for which she had been receiving monthly shots. She has not been receiving her injections since her hospitalization in October. Contacted her doctor's office this morning to have records faxed to Dr. Meier to continue chronic medications. Her dyspnea is improving with therapy. She is at risk for recurrent respiratory difficulties. She has had episodes of flash pulmonary edema and she currently has concern for possible metastatic disease as pulmonary nodules have been found throughout bilateral lung ruff suspicious for metastasis. * Pain: This is multifactorial. She has had some falls during her four-month hospitalizations and may have residual muscle pain. The discomfort in her right chest is reproducible by palpation, likely musculoskeletal in nature, per Dr. Willard. She also has chronic lumbar pain for which she has been under treatment by pain management for some time and has an implanted pain pump. At this time her right chest wall pain is being managed by a fentanyl patch. She does have [place] 5/325 mg for breakthrough pain and morphine sulfate 2 mg IV every 2 hours. She has not use the [place] in 1 days. She has received the IV morphine once in the last 24 hours. She denies pain at this evaluation. Palliative care will continue to follow the patient during hospital course as condition evolves, to assist patient/decision-maker with understanding of their medical conditions, weighing benefits/burdens of treatment options, for clarification of goals of treatment. Additionally will assist with any symptoms of palliative concern. . (Quin Boogie) Attestation To help prompt me to consider important information that might be impacting today's encounter and assessment, information from prior notes written by myself or my colleagues may have been "brought forward" into today's note. My signature on this note, however, is an attestation that I personally performed the exam, history, and/or decision-making noted today, and, unless otherwise indicated, the interactions with patient, family, and staff as well as the review of records all occurred today. I also attest that the listed assessment and stated plan reflect my best clinical judgment today based on the combination of historical information, prior notes, and today's exam/ interactions. When time spent is documented, it refers only to time spent today by the signer, or if indicated, combined time spent today by collaborating physician/nurse practitioner. . (Quin Boogie) Collaborating MD Comments Chart reviewed. Patient examined personally by me. Case discussed with palliative care AREA CAPTAIN. Above AREA CAPTAIN note reviewed and I concur. Patient is awake and alert and conversant at time of my visit. She is reading and is able to tell me a little about her book. She is s/o of her usual RUE / Axilla pain which she says gets up to #8. I have been asked to assess her for "capacity." When I asked her about her illness she was able to tell me about her conversation with Dr. Meier by name. She was able to tell me that her primary problem was her heart and her kidneys. She told me about her two heart attacks. She was aware that she was graduating from the ICU later this evening and being transferred to a med-surg floor. She knew she was seriously ill. She was able to tell me that she wanted to work hard to get better. She did not seem to have much insight into her pulmonary nodules and the biopsy. She told me she wanted her to make her health care decisions for her if she were unable to do so. I believe Ms. Buckley has enough insight into her illness that she should be included in major decision making. However, I believe major decision making should be "shared" decision making with her health care proxy. Time: Total combined MD/AREA CAPTAIN floor time was over 35 minutes with over 50% devoted to counseling/coordination of care. Total time included chart review, patient exam, discussion of bronchoscopy findings, capacity evaluation, and documentation. (Erich Giraldo MD) Quin Boogie Mar 07, 2017 14:40 Erich Giraldo MD Mar 07, 2017 20:25
--- NOTE | 2017-03-07 15:22 | HHI.PR ---
Subjective Remarks NO ACUTE DISTRESS ON O2 THERAPY sitting at bedside TOLERATED BRONCHOSCOPY WELL Objective Vital Signs Date Time Temp Pulse Resp B/P (MAP) Pulse Ox O2 Delivery O2 Flow Rate FiO2 03/07/17 12:47 16 03/07/17 12:00 37 03/07/17 12:00 98.6 37 18 138/72 (94) 99 03/07/17 10:00 61 03/07/17 08:29 100 Nasal Cannula 2.00 03/07/17 08:00 98.4 71 16 139/63 (88) 97 03/07/17 08:00 78 03/07/17 07:53 20 03/07/17 07:00 98 Nasal Cannula 2.00 03/07/17 06:00 59 03/07/17 04:00 55 03/07/17 04:00 97.7 68 20 120/59 (79) 99 03/07/17 02:00 74 03/07/17 00:00 74 03/07/17 00:00 98.5 74 18 109/53 (71) 95 03/06/17 22:00 75 03/06/17 21:00 99 Nasal Cannula 2.00 03/06/17 20:00 98.3 75 17 147/65 (92) 96 03/06/17 20:00 75 03/06/17 19:00 97 Nasal Cannula 2.00 03/06/17 18:00 74 03/06/17 16:00 98.0 175/77 (109) 98 03/06/17 16:00 97.6 74 16 156/76 (102) 97 Nasal Cannula 2 03/06/17 16:00 79 03/06/17 15:45 80 18 121/57 (78) 98 Nasal Cannula 2 03/06/17 15:30 97.6 70 18 121/57 (78) 94 Nasal Cannula 2 I/O 03/06/17 03/06/17 03/06/17 03/07/17 03/07/17 03/07/17 07:00 15:00 23:00 07:00 15:00 23:00 Intake Total 671.5 ml 350 ml 240 ml Balance 671.5 ml 350 ml 240 ml Intake Oral 600 ml 350 ml 240 ml IV Total 71.5 ml # Voids 2 4 2 # Bowel Movements 1 0 Result Diagram: 03/07/17 0432 03/05/17 0400 Objective Remarks GENERAL: SKIN: Warm and dry. HEAD: Atraumatic. Normocephalic. EYES: Pupils equal and round. No scleral icterus. No injection or drainage. ENT: No nasal bleeding or discharge. Mucous membranes pink and moist. NECK: Trachea midline. No JVD. CARDIOVASCULAR: Regular rate and rhythm. RESPIRATORY: No accessory muscle use. Clear to auscultation. Breath sounds equal bilaterally. GASTROINTESTINAL: Abdomen soft, non-tender, nondistended. Hepatic and splenic margins not palpable. MUSCULOSKELETAL: Extremities without clubbing, cyanosis, or edema. No obvious deformities. NEUROLOGICAL: Awake and alert. No obvious cranial nerve deficits. Motor grossly within normal limits. Five out of 5 muscle strength in the arms and legs. Normal speech. PSYCHIATRIC: Appropriate mood and affect; insight and judgment normal. Assessment and Plan Assessment and Plan BILATERAL LUNG NODULES CAD PLAN BCHECK BRONCH RESULTS Karina Collins MD Mar 07, 2017 15:22
--- NOTE | 2017-03-07 16:18 | HHI.CCPN ---
Subjective Remarks/Hospital Course This is a 76-year-old female. Date of admission 02/27/2017. Date of consultation 02/28/2017. Past medical history includes coronary disease with history of 4 stents in 2001 2003, chronic systolic heart failure ejection fraction 40%, hypertension, anemia of chronic disease, chronic low back pain secondary spell stenosis requiring an implanted morphine intrathecal pump, history history of V. fib arrest,/pulmonary edema and hypoxic respiratory failure resulting in likely anoxic encephalopathy, gastritis and external hemorrhoids. Her recent significant history includes an episode of hyperkalemia with potassium of 7.8 leading to ventricular arrest with admission to [facility] on 11/14/16. She was placed on a ventilator and developed sepsis and pneumonia complications. She was discharged with trach and PEG to [facility] in [place] on 11/26/16 under the care of Dr. Bermudez. The patient was transferred to [facility] on 01/23/17 following trach decannulation. She was transferred to [facility] for hypoxic respiratory distress 02/03/17 and required intubation. EGD and colonoscopy performed due to anemia with findings of gastritis, diverticulosis, and 2 large external hemorrhoids. Arrest her status improved and she was extubated, PEG was removed as she was nutritionally improving, she began to make urine and was sent back to [facility] on 02/13/17. She has been suffering from residual anoxic encephalopathy and is a poor historian as a result. On 02/27/17, she was anticipating discharge from [place] as she had met her goals. Her Port-A-Cath was removed by IR on the . She was also having some left sided chest pain related to Vas cath removal. She indicates she has not required dialysis for 3 weeks. The patient relates her symptoms to anxiety. Denies shortness of breath with ambulation, nausea, vomiting, diaphoresis, diarrhea, black or red stool, dysuria, hematuria, dizziness, or syncope. Her outpatient home health manager is Dr. Montaño in [place]. She reports that in October, she had an abnormal nuclear stress test and was told that one of her arteries was "clogged". At that time, according to the patient, her home health manager would not perform a cardiac catheterization due to poor renal function. Today, patient had episode of right-sided chest pain. This was thought to be of muscle skeletal nature. A fentanyl patch was placed and patient became more hypoxic secondary to strain causing part ischemia resulting in flash pulmonary edema. She was placed on BiPAP and given 1 dose of oral bumetanide and transferred to room 526. Subjective 03/01: Bradycardia is resolved. Being transfused 2 units per cc per cardiology. Abnormal CAT scan chest noted. Family requests Dr. King to see 03/02: No acute events overnight. Today patient went 8 blood or with 3-1 conduction, with self resolution. Dynamically stable systolic blood pressure 170s denies chest pain at this time. 03/03: No acute events overnight. No immediate plans for cardiac catheterization , secondary to multiple comorbidities at this time 03/04: Afebrile. Patient continues on heparin infusion has not been transitioned to Coumadin secondary to plans for bronchoscopy on 03/06. 03/05: Late entry note. Patient scheduled for bronchoscopy in a.m., continues on heparin infusion at this time. Plan for transition to Coumadin post bronchoscopy procedure. Plans for cardiac catheter at this time per request of patient and family, will consider it on an outpatient basis. 03/06:No acute events. Pt is S/P bronchoscopy this afternoon, pathology pending. Heparin infusion resumed. 03/07: The patient underwent bronchoscopy with biopsy of pulmonary nodules yesterday. No respiratory compromise. Patient continues on IV heparin plan for transitioning to Coumadin today. Patient up out of bed ambulating in room with PT. Objective Vital Signs Date Time Temp Pulse Resp B/P (MAP) Pulse Ox O2 Delivery O2 Flow Rate FiO2 03/07/17 14:00 69 03/07/17 12:47 16 03/07/17 12:00 98.6 138/72 (94) 99 03/07/17 08:29 Nasal Cannula 2.00 Intake and Output 03/07/17 03/07/17 03/08/17 08:00 16:00 00:00 Intake Total 240 ml Balance 240 ml Result Diagram: 03/07/17 0432 03/05/17 0400 Imaging Last Impressions Chest CT 03/01/17 0000 Signed Impressions: Service Date/Time: Wednesday, March 01, 2017 11:07 - CONCLUSION: 1. Numerous bilateral subcentimeter pulmonary nodules concerning for metastatic disease. 2. Small bilateral pleural effusions and scattered groundglass densities could be infiltrate. 3. Coronary artery calcifications. Jean Paul F. Tocci, MD Abdomen/Pelvis CT 03/01/17 0000 Signed Impressions: Service Date/Time: Wednesday, March 01, 2017 11:07 - CONCLUSION: 1. Diverticulosis without diverticulitis. 2. Status post cholecystectomy. 3. Atrophic kidneys. 4. No mass or adenopathy. Jean Paul Arvizu MD Chest X-Ray 02/28/17 0000 Signed Impressions: Service Date/Time: Tuesday, February 28, 2017 13:02 - CONCLUSION: 1. Probable CHF. Duy Chen MD Objective Remarks GENERAL: This is a 76-year-old female, resting in bed in no acute distress SKIN: Warm and dry. Well perfused HEAD: Atraumatic. Normocephalic. EYES: Pupils equal and round about 3 mm bilaterally and reactive. No scleral icterus. No injection or drainage. ENT: No nasal bleeding or discharge. Mucous membranes pink and moist. NECK: Trachea midline. No JVD. CARDIOVASCULAR: Regular rate and rhythm. S1, S2. No S4. Without murmur RESPIRATORY: To crackles appreciated in bases bilaterally. Symmetrical excursion.. GASTROINTESTINAL: Abdomen soft, distended. Hypoactive bowel sounds are appreciated. MUSCULOSKELETAL: Extremities with trace bilateral lower extremity edema. No obvious deformities. Left permacath removed with Steri-Strips old blood. Right Port-A-Cath is clean dry and intact without erythema NEUROLOGICAL: Awake and alert. No obvious cranial nerve deficits. Motor grossly within normal limits. 5/5 muscle strength in the arms and legs. Normal speech. 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 Anxiety Currently on quetiapine 100 Mg Twice a Day Fentanyl patch 50 g every 72 hours. Acetaminophen for fever Hydrocodone/acetaminophen 5/325 one tablet every 4 hours when necessary pain 1- 5 and morphine sulfate 2 mg IV every 2 hours. Pain 6-10 Consult psychiatry regarding cognitive ability to make decisions CV: Bradycardia - resolved Chest pain History of V. fib arrest secondary to hyperkalemia Chronic systolic heart failure ejection fraction 40% Coronary disease status post stent 4 Hypertension History of paroxysmal atrial fibrillation currently in first-degree AV block Followed by cardiology/Dr. Willard. Plan for cardiac catheterization possibly when stabilized Serial troponins EKG revealed first-degree AV block. ST-T depression in the inferior and lateral leads. Patient has a known ejection fraction 40-45%. Pulmonary artery pressures around 44 mmHg Currently on aspirin 81 mg daily On amiodarone 200 mg by mouth daily currently and hydralazine 100 mg every 8 hours, Isordil dinitrate 40 mg twice a day, carvedilol 12.5 mg twice a day and diltiazem 120 mg daily. Carvedilol initiated 03/02 and hold diltiazem today Continue aspirin 81 mg daily Bumetanide 1 mg daily 03/07 transition to Coumadin Resp: Acute respiratory failure Currently on nasal cannula to maintain saturations greater than or equal to 92% Incentive spirometry while awake Follow-up ABG and chest x-ray CT thorax reveals small bilateral pleural effusions, groundglass opacities and subcentimeter pulmonary nodules. Pulmonology following , Dr. Collins S/P bronchoscopy with biopsies 03/06 GI: Gastritis/history of gastric ulcer External hemorrhoids Hypoalbuminemia Patient is currently nothing by mouth except for medications Pantoprazole for GI prophylaxis Sucralfate 1 g 3 times a day history of gastric ulcers. On polyethylene glycol 17 g daily with constipation along with our bowel regimen docusate/senna 1 tablet twice a day : Olson catheter if indicated for accurate I's and O's in a critically ill patient Endo: Hyperglycemia History of partial thyroidectomy/parathyroidectomy Sliding-scale insulin with Accu-Cheks before meals/at bedtime to maintain euglycemia moderate regimen with Novulin R Renal: Chronic kidney disease stage IV. Nephrology actively following. Heme: Anemia of chronic kidney disease Elevated INR/PTT Chronic warfarin use Leukopenia Anemia Thrombocytopenia Monitor CBC Heparin drip to be continued. 03/01 Transfused 2 units PRBCs per cardiology's request ID: Monitor for infection FEN: Replace electrolytes as clinically indicated MSK: PT evaluate and treat Access - Utilize right Port-A-Cath. Prophylaxis - GI - pantoprazole - DVT - SCD/heparin drip resumed post bronch Dispo: Level 2 Discussed with patient, Dr. Willard and POULTRY EVISCERATOR at bedside (Nirmal). Plan transfer to [facility] in a.m. Plan transfer to [facility] floor upon bed availability Physician Sharon Alvares MD Mar 07, 2017 16:17
[2017-03-07] MEDS: WARFARIN SOD 5 MG TAB PO SCH (17:56)
[2017-03-08] VITALS (9 sets, daily range): BP systolic 124–165; BP diastolic 64–74; PULSE 58–83; RESP 16–20; TEMP 97–98.6; O2SAT 96–100
[2017-03-08] MEDS: CHLORHEXIDINE GLUCONATE 2 % 1 PACK (2 CLOTHS) TOP SCH (03:01)
[2017-03-08] MEDS: hydrALAZINE HCL 100 MG TAB PO SCH ×3 (05:39→21:48)
[2017-03-08] MEDS: INSULIN NovoLIN REGULAR SUPPLEMENTAL SCALE SQ SCH ×4 (08:00→21:00)
[2017-03-08] MEDS: MORPHINE SULFATE 4 MG/ML INJ IV PUSH PRN ×3 (08:33→21:43)
[2017-03-08] MEDS: CARVEDILOL 12.5 MG TAB PO SCH ×2 (08:38→21:40)
[2017-03-08] MEDS: POLYETHYLENE GLYCOL 17 GM PKG PO SCH (08:38)
[2017-03-08] MEDS: DOCUSATE SODIUM 50 MG/SENNA 8.6 MG TAB PO SCH ×2 (08:38→21:40)
[2017-03-08] MEDS: SUCRALFATE 1 GM TAB PO SCH ×3 (08:38→16:48)
[2017-03-08] MEDS: PANTOPRAZOLE SOD 40 MG DELAYED RELEASE TAB PO SCH (08:38)
[2017-03-08] MEDS: BUMETANIDE 1 MG TAB PO SCH (08:39)
[2017-03-08] MEDS: AMIODARONE 200 MG TAB PO SCH (08:39)
[2017-03-08] MEDS: ASPIRIN 81 MG CHEW TAB CHEW SCH (08:39)
[2017-03-08] MEDS: QUEtiapine FUMARATE 100 MG TAB PO SCH ×2 (08:39→21:40)
[2017-03-08] MEDS: CALCITONIN SALM 200 UNIT/SPRAY 3.7 ML BTLN NASAL SCH (09:00)
[2017-03-08] MEDS: MUPIROCIN 2% OINT 1 APPLIC/GM SYR EACH NARE SCH ×2 (09:15→21:41)
[2017-03-08] MEDS: ACETAMINOPHEN/HYDROcodone 325 MG/5 MG TAB PO PRN (09:16)
[2017-03-08] MEDS: SODIUM CHLORIDE 0.9% FLUSH 10 ML FLUSH IV FLUSH SCH ×2 (09:18→21:41)
[2017-03-08 09:45] LABS: HEMATOCRIT 30.2 % (35.0-46.0); MEAN CELL VOLUME 89.4 FL (80.0-100.0); MEAN CORPUSCULAR HEMOGLOBIN 29.5 PG (27.0-34.0); PLATELET COUNT 116 TH/MM3 (150-450); RED BLOOD COUNT 3.38 MIL/MM3 (4.00-5.30); RED CELL DISTRIBUTION WIDTH 18.1 % (11.6-17.2); REVIEW FLAG FINAL; WHITE BLOOD COUNT 3.2 TH/MM3 (4.0-11.0)
[2017-03-08 09:56] LABS: INTERNATIONAL NORMALIZED RATIO 1.4 RATIO
[2017-03-08] MEDS: REMOVE OLD DURAGESIC (FENTANYL) PATCH T-DERMAL SCH (12:00)
[2017-03-08 12:39] LABS: APTT (PATIENT) 40.4 SEC (24.3-30.1)
[2017-03-08] MEDS: fentaNYL 50 MCG/HR PATCH T-DERMAL SCH (13:02)
[2017-03-08] MEDS: ISOSORBIDE DINITRATE 40 MG SUSTAINED RELEASE TAB PO SCH ×2 (13:03→16:48)
--- NOTE | 2017-03-08 16:35 | HHI.FF ---
Face to Face Verification Diagnosis: (1) CAD (coronary artery disease) (2) Anoxic encephalopathy (3) Anemia in chronic renal disease (4) Stage 4 chronic kidney disease Physical Therapy Order: Evaluate and Treat Home Health Nursing Order: Medical education Nursing assessment with vital signs Instructions: Home health nursing for medication management. Belt Loop Maker Order: To Provide: Long range planning I have seen patient Kaya Buckley on 03/08/17. My clinical findings support the need for the requested home health care services because: Med compliance is questionable I certify that my clinical findings support that this patient is homebound because: Unsafe to leave home unassisted Kvng Dunn MD Mar 08, 2017 16:35
--- NOTE | 2017-03-08 16:37 | HHI.NPPN ---
Subjective History of Present Illness 76 y/o female with a PMH that includes A fib/flutter on chronic Coumadin, HTN, hyperlipidemia, CAD/ischemic cardiomyopathy. She also has CKD 4. In October she was seen in [place] ER with acute hyperkalemia and suffered cardiac arrest. She did survive, was on the ventilator for prolonged period with a trach, eventually weened off the vent and trach, and transferred to [facility] and later to [facility]. The patient had to be dialyzed emergently in October due to hyperkalemia. Additional Remarks patient is comfortable. No respiratory distress is noted. Renal function is stable. Review of Systems General Constitutional: Fatigue Cardiovascular Cardiac: Edema, SNYDER Objective Data Data 03/08/17 03/09/17 19:00 07:00 Intake Total 82.1 ml Balance 82.1 ml IV Total 82.1 ml # Voids 3 Vital Signs Date Time Temp Pulse Resp B/P (MAP) Pulse Ox O2 Delivery O2 Flow Rate FiO2 03/08/17 15:00 2.00 03/08/17 14:25 Nasal Cannula 2.00 35 03/08/17 12:00 97.0 77 18 124/65 (84) 97 03/08/17 08:00 97.9 79 18 142/65 (90) 96 03/08/17 04:00 58 03/08/17 04:00 97.4 70 20 128/74 (92) 100 03/08/17 00:34 75 03/08/17 00:00 97.5 83 16 165/72 (103) 99 03/07/17 22:15 97.5 83 16 165/72 (103) 99 03/07/17 22:00 76 03/07/17 20:46 10 03/07/17 20:00 74 03/07/17 20:00 97.8 74 14 150/70 (96) 98 03/07/17 19:00 98 Nasal Cannula 2.00 03/07/17 18:00 69 -: 03/08/17 0925 03/05/17 0400 Physical Exam General Appearance: No Acute Distress, Comfortable Eyes Eye Exam: Pupils Equal Throat Throat Exam: Oral Mucosa [place] & Moist Pulmonary Resp Exam: Clear Bilaterally, Breath Sounds Equal, No Distress Cardiology CV Exam: Regular Gastrointestinal/Abdomen GI Exam: Soft, Non-Tender, Bowel Sounds Present Neurologic Neuro Exam: Alert, Awake Assessment/Plan Problem List: (1) Stage 4 chronic kidney disease ICD Codes: N18.4 - Chronic kidney disease, stage 4 (severe) Plan: Last HD was 02/12; PermCath was removed She is non oliguric No need for dialysis at this time. Renal function is stable, GFR at baseline. low WBC monitor nephrology to follow as out pt (2) NSTEMI (non-ST elevated myocardial infarction) ICD Codes: I21.4 - Non-ST elevation (NSTEMI) myocardial infarction Plan: Cardiology following On heparin Gtt (3) Anemia in chronic renal disease ICD Codes: N18.9 - Chronic kidney disease, unspecified; D63.1 - Anemia in chronic kidney disease Status: Chronic Plan: Epogen can be given intermittently. (4) Paroxysmal A-fib ICD Codes: I48.0 - Paroxysmal atrial fibrillation Plan: Coumadin to be restarted. (5) Lung nodule, multiple ICD Codes: R91.8 - Other nonspecific abnormal finding of lung field Plan: Being followed by Pulmonary, bronchoscopy done follow results Bryan Salazar MD Mar 08, 2017 16:37
[2017-03-08] MEDS ORDERED: Albuterol Neb INH (16:40)
--- NOTE | 2017-03-08 16:47 | HHI.PR ---
Subjective Remarks Patient sleeping, wakes up for exam. Says she is feeling all right. Denies any chest pain or shortness of breath. She does have some right axillary pain which she says is chronic during her entire hospitalization. Denies any constipation. Denies any nausea or vomiting. Objective Vital Signs Date Time Temp Pulse Resp B/P (MAP) Pulse Ox O2 Delivery O2 Flow Rate FiO2 03/08/17 15:00 2.00 03/08/17 14:25 Nasal Cannula 2.00 35 03/08/17 12:00 97.0 77 18 124/65 (84) 97 03/08/17 08:00 97.9 79 18 142/65 (90) 96 03/08/17 04:00 58 03/08/17 04:00 97.4 70 20 128/74 (92) 100 03/08/17 00:34 75 03/08/17 00:00 97.5 83 16 165/72 (103) 99 03/07/17 22:15 97.5 83 16 165/72 (103) 99 03/07/17 22:00 76 03/07/17 20:46 10 03/07/17 20:00 74 03/07/17 20:00 97.8 74 14 150/70 (96) 98 03/07/17 19:00 98 Nasal Cannula 2.00 03/07/17 18:00 69 I/O 03/07/17 03/07/17 03/07/17 03/08/17 03/08/17 03/08/17 07:00 15:00 23:00 07:00 15:00 23:00 Intake Total 240 ml 891 ml 360 ml 82.1 ml Output Total 2100 ml 150 ml Balance 240 ml -1209 ml 210 ml 82.1 ml Intake Oral 240 ml 800 ml 360 ml IV Total 91 ml 82.1 ml Output Urine Total 2100 ml 150 ml # Voids 2 3 # Bowel Movements 0 Result Diagram: 03/08/1792403/05/17 0400 Objective Remarks GENERAL: Patient sitting up in bed. Appears comfortable. SKIN: Warm and dry. HEAD: Normocephalic. EYES: No scleral icterus. No injection or drainage. NECK: Supple, trachea midline. No JVD or lymphadenopathy. CARDIOVASCULAR: Regular rate and rhythm without murmurs, gallops, or rubs. RESPIRATORY: Breath sounds equal bilaterally. No accessory muscle use. GASTROINTESTINAL: Abdomen soft, non-tender, nondistended. MUSCULOSKELETAL: No cyanosis, or edema. BACK: Nontender without obvious deformity. No CVA tenderness. A/P Assessment and Plan //Chronic anoxic encephalopathy //Chronic benzodiazepine use //Spinal stenosis status post placement of a morphine intrathecal device Currently on alprazolam 0.5 mg every 8 hours. Anxiety Currently on quetiapine 100 Mg Twice a Day Fentanyl patch 50 g every 72 hours. Acetaminophen for fever Hydrocodone/acetaminophen 5/325 one tablet every 4 hours when necessary pain 1- 5 and morphine sulfate 2 mg IV every 2 hours. Pain 6-10 -03/08. Discussed with psychiatry. Appreciate assistance. Cancel psychiatry consultation. Patient, together with have decided to opt for medical management of cardiac issues below.. CV: //Bradycardia - resolved //Chest pain //History of V. fib arrest secondary to hyperkalemia //Chronic systolic heart failure ejection fraction 40% //Coronary disease status post stent 4 //Hypertension //History of paroxysmal atrial fibrillation currently in first-degree AV block Followed by cardiology/Dr. Willard. Plan for cardiac catheterization possibly when stabilized Serial troponins EKG revealed first-degree AV block. ST-T depression in the inferior and lateral leads. Patient has a known ejection fraction 40-45%. Pulmonary artery pressures around 44 mmHg Currently on aspirin 81 mg daily On amiodarone 200 mg by mouth daily currently and hydralazine 100 mg every 8 hours, Isordil dinitrate 40 mg twice a day, carvedilol 12.5 mg twice a day and diltiazem 120 mg daily. Carvedilol initiated 03/02 and hold diltiazem today Continue aspirin 81 mg daily Bumetanide 1 mg daily 03/08. Transitioning to Coumadin. INR 1.4. Continue heparin for now. Recheck INR tomorrow. Resp: //Acute respiratory failure Currently on nasal cannula to maintain saturations greater than or equal to 92% Incentive spirometry while awake Follow-up ABG and chest x-ray CT thorax reveals small bilateral pleural effusions, groundglass opacities and subcentimeter pulmonary nodules. Pulmonology following , Dr. Collins S/P bronchoscopy with biopsies 03/06 = Follow-up pathology. Follow-up pulmonology as outpatient. GI: //Gastritis/history of gastric ulcer //External hemorrhoids //Hypoalbuminemia Patient is currently nothing by mouth except for medications Pantoprazole for GI prophylaxis Sucralfate 1 g 3 times a day history of gastric ulcers. On polyethylene glycol 17 g daily with constipation along with our bowel regimen docusate/senna 1 tablet twice a day : Olson catheter if indicated for accurate I's and O's in a critically ill patient Endo: Hyperglycemia History of partial thyroidectomy/parathyroidectomy Sliding-scale insulin with Accu-Cheks before meals/at bedtime to maintain euglycemia moderate regimen with Novulin R Renal: Chronic kidney disease stage IV. Nephrology actively following. No need for dialysis at this time. Follow-up with nephrology as outpatient. Heme: Anemia of chronic kidney disease. Hemoglobin stable. Elevated INR/PTT Chronic warfarin use Leukopenia Anemia Thrombocytopenia Monitor CBC Heparin drip to be continued. / Transfused 2 units PRBCs per cardiology's request ID: Monitor for infection FEN: Replace electrolytes as clinically indicated MSK: PT evaluate and treat Access - Utilize right Port-A-Cath. Prophylaxis - GI - pantoprazole - DVT - SCD/heparin drip resumed post bronch Discharge Planning -Likely discharge home with home health tomorrow if stable. -Follow up INR tomorrow. patient may need bridging. -Follow-up with cardiology, pulmonology, nephrology, primary care. Kvng Dunn MD Mar 08, 2017 16:47
[2017-03-08] MEDS: WARFARIN SOD 5 MG TAB PO SCH (16:48)
[2017-03-08] MEDS: HEPARIN 25,000 UNITS-D5W 250 ML - PREMIX IV PRN (19:17)
[2017-03-08 19:19] LABS: APTT (PATIENT) 42.3 SEC (24.3-30.1)
[2017-03-09] VITALS (10 sets, daily range): BP systolic 112–160; BP diastolic 56–80; PULSE 46–80; RESP 17–18; TEMP 97–98.1; O2SAT 96–98
[2017-03-09] MEDS: ALPRAZolam 0.25 MG TAB PO PRN ×3 (00:10→21:08)
[2017-03-09] MEDS: CHLORHEXIDINE GLUCONATE 2 % 1 PACK (2 CLOTHS) TOP SCH (04:00)
[2017-03-09] MEDS: hydrALAZINE HCL 100 MG TAB PO SCH ×3 (05:39→21:00)
[2017-03-09 06:03] LABS: AUTOMATED NEUTROPHIL # 1.6 TH/MM3 (1.8-7.7); EOSINOPHIL # 0.1 TH/MM3 (0-0.4); EOSINOPHIL % 3.8 % (0.0-4.0); HEMATOCRIT 28.3 % (35.0-46.0); HEMO FLAGS DIFF FINAL; LYMPH % 25.1 % (9.0-44.0); LYMPHOCYTE # 0.7 TH/MM3 (1.0-4.8); MEAN CORPUSCULAR HEMOGLOBIN 29.4 PG (27.0-34.0); MONO % 7.5 % (0.0-8.0); NEUT % 62.6 % (16.0-70.0); PLATELET COUNT 118 TH/MM3 (150-450); RED BLOOD COUNT 3.17 MIL/MM3 (4.00-5.30); RED CELL DISTRIBUTION WIDTH 18.2 % (11.6-17.2); WHITE BLOOD COUNT 2.6 TH/MM3 (4.0-11.0)
[2017-03-09 06:31] LABS: MAGNESIUM 1.7 MG/DL (1.5-2.5)
[2017-03-09] MEDS: INSULIN NovoLIN REGULAR SUPPLEMENTAL SCALE SQ SCH ×3 (08:00→17:48)
[2017-03-09] MEDS: AMIODARONE 200 MG TAB PO SCH (08:10)
[2017-03-09] MEDS: BUMETANIDE 1 MG TAB PO SCH (08:10)
[2017-03-09] MEDS: MUPIROCIN 2% OINT 1 APPLIC/GM SYR EACH NARE SCH ×2 (08:10→20:57)
[2017-03-09] MEDS: SUCRALFATE 1 GM TAB PO SCH ×3 (08:10→17:49)
[2017-03-09] MEDS: ISOSORBIDE DINITRATE 40 MG SUSTAINED RELEASE TAB PO SCH ×2 (08:10→13:45)
[2017-03-09] MEDS: PANTOPRAZOLE SOD 40 MG DELAYED RELEASE TAB PO SCH (08:10)
[2017-03-09] MEDS: QUEtiapine FUMARATE 100 MG TAB PO SCH ×2 (08:11→20:59)
[2017-03-09] MEDS: CARVEDILOL 12.5 MG TAB PO SCH ×2 (08:11→20:59)
[2017-03-09] MEDS: MORPHINE SULFATE 4 MG/ML INJ IV PUSH PRN ×2 (08:11→21:02)
[2017-03-09] MEDS: DOCUSATE SODIUM 50 MG/SENNA 8.6 MG TAB PO SCH ×2 (08:11→20:59)
[2017-03-09] MEDS: ASPIRIN 81 MG CHEW TAB CHEW SCH (08:11)
[2017-03-09] MEDS: SODIUM CHLORIDE 0.9% FLUSH 10 ML FLUSH IV FLUSH SCH ×2 (08:12→20:58)
[2017-03-09] MEDS: POLYETHYLENE GLYCOL 17 GM PKG PO SCH (08:12)
[2017-03-09] MEDS: CALCITONIN SALM 200 UNIT/SPRAY 3.7 ML BTLN NASAL SCH (10:23)
[2017-03-09 13:15] LABS: APTT (PATIENT) 41.7 SEC (24.3-30.1); INTERNATIONAL NORMALIZED RATIO 1.9 RATIO
--- NOTE | 2017-03-09 13:53 | HHI.NPPN ---
Subjective History of Present Illness 76 y/o female with a PMH that includes A fib/flutter on chronic Coumadin, HTN, hyperlipidemia, CAD/ischemic cardiomyopathy. She also has CKD 4. In October she was seen in [place] ER with acute hyperkalemia and suffered cardiac arrest. She did survive, was on the ventilator for prolonged period with a trach, eventually weened off the vent and trach, and transferred to [facility] and later to [facility]. The patient had to be dialyzed emergently in October due to hyperkalemia. Additional Remarks patient is comfortable. No respiratory distress is noted. Renal function is stable. Review of Systems General Constitutional: Fatigue Cardiovascular Cardiac: Edema, SNYDER Objective Data Data Vital Signs Date Time Temp Pulse Resp B/P (MAP) Pulse Ox O2 Delivery O2 Flow Rate FiO2 03/09/17 12:00 97.4 50 18 122/56 (78) 96 03/09/17 10:06 97 Nasal Cannula 2.00 03/09/17 09:34 78 03/09/17 09:34 Nasal Cannula 2.00 03/09/17 08:00 97.0 71 18 134/63 (86) 97 03/09/17 04:00 51 03/09/17 04:00 97.4 53 17 112/62 (79) 97 03/09/17 00:15 77 03/09/17 00:00 98.1 79 17 132/63 (86) 97 03/08/17 20:15 Nasal Cannula 2.00 03/08/17 20:04 96 Nasal Cannula 2.00 03/08/17 20:00 78 03/08/17 20:00 98.6 80 17 145/72 (96) 98 03/08/17 17:41 98.0 80 18 138/64 (88) 96 03/08/17 15:00 2.00 03/08/17 14:25 Nasal Cannula 2.00 35 -: 03/09/17 0545 03/09/17 0545 Physical Exam General Appearance: No Acute Distress, Comfortable Eyes Eye Exam: Pupils Equal Throat Throat Exam: Oral Mucosa [place] & Moist Pulmonary Resp Exam: Clear Bilaterally, Breath Sounds Equal, No Distress Cardiology CV Exam: Regular Gastrointestinal/Abdomen GI Exam: Soft, Non-Tender, Bowel Sounds Present Neurologic Neuro Exam: Alert, Awake Assessment/Plan Problem List: (1) Stage 4 chronic kidney disease ICD Codes: N18.4 - Chronic kidney disease, stage 4 (severe) Plan: Last HD was 02/12; PermCath was removed She is non oliguric No need for dialysis at this time. Renal function is stable, GFR at baseline. cr 2.7 higher follow this (2) NSTEMI (non-ST elevated myocardial infarction) ICD Codes: I21.4 - Non-ST elevation (NSTEMI) myocardial infarction Plan: Cardiology following On heparin Gtt (3) Anemia in chronic renal disease ICD Codes: N18.9 - Chronic kidney disease, unspecified; D63.1 - Anemia in chronic kidney disease Status: Chronic Plan: Epogen can be given intermittently. (4) Paroxysmal A-fib ICD Codes: I48.0 - Paroxysmal atrial fibrillation Plan: Coumadin to be restarted. (5) Lung nodule, multiple ICD Codes: R91.8 - Other nonspecific abnormal finding of lung field Plan: Being followed by Pulmonary, bronchoscopy done follow results Bryan Salazar MD Mar 09, 2017 13:53
[2017-03-09] MEDS: WARFARIN SOD 5 MG TAB PO SCH (17:49)
--- NOTE | 2017-03-09 19:27 | MB ---
cc: ERIK DUNN M.D. DATE OF CONSULTATION 03/09/2017 REASON FOR CONSULTATION Consult requested by Dr. Dunn for evaluation of pancytopenia. HISTORY OF PRESENT ILLNESS Kaya is a pleasant 76-year-old female. She has complicated history. She has been in multiple hospitals and rehab center for the last 4 months. The patient was admitted to [facility] on November 14 for ventricular arrest. She was found to be hyperkalemic. She had developed anoxic encephalopathy. She needs ventilator support. She had developed sepsis, pneumonia which were treated with the antibiotics. She was discharged to [facility] with the trache and peg tube on November 26. From there the patient was transferred to [facility] on January 23 when trache was decannulated. On February 03 she went into respiratory distress and required reintubation. She subsequently improved and was extubated. PEG tube has now been removed. She has been eating well. She has anoxic encephalopathy and appears to be a poor historian. Her blood count shows pancytopenia and I have been asked to see her for further evaluation. The patient stated that she is under the care of underwriter oncologist Dr. Lemos in [place]. She states she has been under her care for the last 2 years. She has been getting B12 shots every 6 weeks. Also she gets blood transfusion whenever the hemoglobin drops below 8. When I ask her whether she had a bone marrow biopsy she could not remember. She stated that her probably would know. Dr. Lemos's records are not available at the present time. The patient is feeling much better. She is looking forward to go to rehab to get physical therapy so that she could go home eventually. The rest of the review of systems is negative. PAST MEDICAL HISTORY 1. Atrial fibrillation. 2. History of ventricular arrest. 3. Systolic congestive heart failure. 4. Hypertension. 5. Chronic low back pain. 6. Coronary artery disease. 7. Chronic kidney disease stage IV. 8. Anxiety disorder. 9. Hard of hearing. PAST SURGICAL HISTORY 1. Left ankle surgery. 2. Perma-Cath placement for dialysis. 3. Teijbv-C-Nvgh placement. 4. Right cochlear implant. 5. Intrathecal morphine pump. 6. Coronary stent. 7. Cholecystectomy. 8. Appendectomy. 9. PEG tube placement. 10. Tracheostomy. 11. Thyroidectomy. 12. Colonoscopy and upper endoscopy. ALLERGIES None to medications. mass. MEDICATIONS 1. Potassium. 2. Aspirin. 3. Coreg. 4. Cardizem. 5. Isosorbide. 6. Hydralazine. 7. Xanax. 8. Quetiapine. 9. Fentanyl patch. 10. Docusate. 11. Amiodarone. 12. Coumadin. FAMILY HISTORY None for malignancy or any blood disorder that she knows of. SOCIAL HISTORY The patient is . She does not smoke cigarettes. She used to drink alcohol heavy. PHYSICAL EXAMINATION GENERAL: This is a well-developed, elderly white female in no apparent distress. VITAL SIGNS: Temperature 97.6, heart rate is 58, blood pressure 142/64, O2 saturation 98%. HEENT: PERRLA, EOMI, anicteric. No oral lesions noted. NECK: No lymphadenopathy noted. LUNGS: Are clear. No wheezing, rhonchi or rales. CARDIOVASCULAR: Heart is regular rate and rhythm. ABDOMEN: Soft, nontender. No other splenomegaly. EXTREMITIES: No pedal edema. NEUROLOGIC: Awake, alert, oriented times three. SKIN: No significant lesions are noted. 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 PLAN I have reviewed her available records and I have discussed with the patient regarding the pancytopenia. She has anemia which is multifactorial could be due to underlying bone marrow pathology such as MDS and also due to anemia of chronic renal failure. Her thrombocytopenia is mild and she is not symptomatic from that. She has also leukopenia and mild neutropenia with lymphopenia. I suspect that she may have some underlying bone marrow pathology such as MDS. The patient has been under the care of underwriter oncologist Dr. Charlotte Lemos in [place]. It is unknown whether she had a bone marrow biopsy to confirm the diagnosis of MDS. The patient states that she has been getting B12 shots every [address] Lemos. She also gets periodic blood transfusion whenever she is severely anemic. At this point I do not recommend any further evaluation for the pancytopenia. Her B12 is 1055, folate is more than 20. Her creatinine is 2.72 and GFR 17. She has anemia of chronic renal failure. She will benefit from Procrit and blood transfusion support. The patient is not symptomatic for anemia at this point. Recommend to monitor her CBC and give her blood transfusion if the hemoglobin dropped below 8. She is on Coumadin for the atrial fibrillation and her INR is 1.9. She also had a CT scan of the abdomen and pelvis which does not show any hepatosplenomegaly or any evidence of hypersplenism. She has atrophic kidneys. There is no mass or adenopathy noted. Further recommendations based on the hospital stay. Thank you for asking my opinion. MD KEVIN Luis/JESUS /6:39 PM /6:56 PM
--- NOTE | 2017-03-09 20:01 | HHI.PR ---
Subjective Remarks Patient seen this morning around 10 AM. Says she is feeling all right. Denies any chest pain or shortness of breath. Objective Vital Signs Date Time Temp Pulse Resp B/P (MAP) Pulse Ox O2 Delivery O2 Flow Rate FiO2 03/09/17 17:52 98 Nasal Cannula 2.00 03/09/17 16:00 97.6 80 18 143/64 (90) 98 03/09/17 16:00 58 03/09/17 12:00 97.4 50 18 122/56 (78) 96 03/09/17 12:00 46 03/09/17 10:06 97 Nasal Cannula 2.00 03/09/17 09:34 78 03/09/17 09:34 Nasal Cannula 2.00 03/09/17 08:00 97.0 71 18 134/63 (86) 97 03/09/17 04:00 51 03/09/17 04:00 97.4 53 17 112/62 (79) 97 03/09/17 00:15 77 03/09/17 00:00 98.1 79 17 132/63 (86) 97 03/08/17 20:15 Nasal Cannula 2.00 03/08/17 20:04 96 Nasal Cannula 2.00 03/08/17 20:00 78 03/08/17 20:00 98.6 80 17 145/72 (96) 98 I/O 03/08/17 03/08/17 03/08/17 03/09/17 03/09/17 03/09/17 07:00 15:00 23:00 07:00 15:00 23:00 Intake Total 360 ml 333.5 ml 991.8 ml 720 ml Output Total 150 ml Balance 210 ml 333.5 ml 991.8 ml 720 ml Intake Oral 360 ml 240 ml 950 ml 720 ml IV Total 93.5 ml 41.8 ml Output Urine Total 150 ml # Voids 5 4 3 # Bowel Movements 0 1 Result Diagram: 03/09/1754403/09/17544 Objective Remarks GENERAL: Patient sitting up in bed. Appears comfortable.exam unchanged from yesterday. SKIN: Warm and dry. HEAD: Normocephalic. EYES: No scleral icterus. No injection or drainage. NECK: Supple, trachea midline. No JVD or lymphadenopathy. CARDIOVASCULAR: Regular rate and rhythm without murmurs, gallops, or rubs. RESPIRATORY: Breath sounds equal bilaterally. No accessory muscle use. GASTROINTESTINAL: Abdomen soft, non-tender, nondistended. MUSCULOSKELETAL: No cyanosis, or edema. BACK: Nontender without obvious deformity. No CVA tenderness. A/P Assessment and Plan 03/09. Pancytopenia worsening. White blood cell count 2.6. Absolute neutrophil count 1.6. Patient reports history of B12 deficiency, however B12 within the high range. Methylmalonic acid pending. Hematology consultation. INR 1.9, can likely discontinue heparin drip tomorrow. -Pathology still pending from bronchoscopy. Likely discharge tomorrow to rehabilitation. //Chronic anoxic encephalopathy //Chronic benzodiazepine use //Spinal stenosis status post placement of a morphine intrathecal device Currently on alprazolam 0.5 mg every 8 hours. Anxiety Currently on quetiapine 100 Mg Twice a Day Fentanyl patch 50 g every 72 hours. Acetaminophen for fever Hydrocodone/acetaminophen 5/325 one tablet every 4 hours when necessary pain 1- 5 and morphine sulfate 2 mg IV every 2 hours. Pain 6-10 -03/08. Discussed with psychiatry. Appreciate assistance. Cancel psychiatry consultation. Patient, together with have decided to opt for medical management of cardiac issues below.. CV: //Bradycardia - resolved //Chest pain //History of V. fib arrest secondary to hyperkalemia //Chronic systolic heart failure ejection fraction 40% //Coronary disease status post stent 4 //Hypertension //History of paroxysmal atrial fibrillation currently in first-degree AV block Followed by cardiology/Dr. Willard. Plan for cardiac catheterization possibly when stabilized Serial troponins EKG revealed first-degree AV block. ST-T depression in the inferior and lateral leads. Patient has a known ejection fraction 40-45%. Pulmonary artery pressures around 44 mmHg Currently on aspirin 81 mg daily On amiodarone 200 mg by mouth daily currently and hydralazine 100 mg every 8 hours, Isordil dinitrate 40 mg twice a day, carvedilol 12.5 mg twice a day and diltiazem 120 mg daily. Carvedilol initiated 03/02 and hold diltiazem today Continue aspirin 81 mg daily Bumetanide 1 mg daily 03/08. Transitioning to Coumadin. INR 1.4. Continue heparin for now. Recheck INR tomorrow. Resp: //Acute respiratory failure Currently on nasal cannula to maintain saturations greater than or equal to 92% Incentive spirometry while awake Follow-up ABG and chest x-ray CT thorax reveals small bilateral pleural effusions, groundglass opacities and subcentimeter pulmonary nodules. Pulmonology following , Dr. Collins S/P bronchoscopy with biopsies 03/06 = Follow-up pathology. Follow-up pulmonology as outpatient. GI: //Gastritis/history of gastric ulcer //External hemorrhoids //Hypoalbuminemia Patient is currently nothing by mouth except for medications Pantoprazole for GI prophylaxis Sucralfate 1 g 3 times a day history of gastric ulcers. On polyethylene glycol 17 g daily with constipation along with our bowel regimen docusate/senna 1 tablet twice a day : Olson catheter if indicated for accurate I's and O's in a critically ill patient Endo: Hyperglycemia History of partial thyroidectomy/parathyroidectomy Sliding-scale insulin with Accu-Cheks before meals/at bedtime to maintain euglycemia moderate regimen with Novulin R Renal: Chronic kidney disease stage IV. Nephrology actively following. No need for dialysis at this time. Follow-up with nephrology as outpatient. Heme: Anemia of chronic kidney disease. Hemoglobin stable. Elevated INR/PTT Chronic warfarin use Leukopenia Anemia Thrombocytopenia Monitor CBC Heparin drip to be continued. 03/01 Transfused 2 units PRBCs per cardiology's request ID: Monitor for infection FEN: Replace electrolytes as clinically indicated MSK: PT evaluate and treat Access - Utilize right Port-A-Cath. Prophylaxis - GI - pantoprazole - DVT - SCD/heparin drip resumed post bronch Discharge Planning -Likely discharge home with home health tomorrow if leukocytes stable, cleared by hematology.. -Follow up INR againtomorrow. patient may need bridging. -Follow-up with cardiology, pulmonology, nephrology, primary care. Kvng Dunn MD Mar 09, 2017 20:01
[2017-03-10] VITALS: BP 131/61; PULSE 65; PULSE 70; RESP 17; TEMP 97.3; O2SAT 95
[2017-03-10 04:00] VITALS: BP 125/59; PULSE 44; PULSE 50; RESP 17; TEMP 97.3; O2SAT 99
[2017-03-10] MEDS: CHLORHEXIDINE GLUCONATE 2 % 1 PACK (2 CLOTHS) TOP SCH (04:00)
[2017-03-10] MEDS: hydrALAZINE HCL 100 MG TAB PO SCH ×2 (05:36→13:51)
[2017-03-10] MEDS: MORPHINE SULFATE 4 MG/ML INJ IV PUSH PRN ×2 (06:21→15:25)
[2017-03-10 07:25] LABS: AUTOMATED NEUTROPHIL # 1.6 TH/MM3 (1.8-7.7); BASOPHIL % 0.9 % (0.0-2.0); EOSINOPHIL # 0.1 TH/MM3 (0-0.4); EOSINOPHIL % 3.8 % (0.0-4.0); HEMO FLAGS DIFF FINAL; LYMPH % 28.5 % (9.0-44.0); LYMPHOCYTE # 0.8 TH/MM3 (1.0-4.8); MEAN CELL VOLUME 88.9 FL (80.0-100.0); MEAN CORPUSCULAR HEMOGLOBIN 29.2 PG (27.0-34.0); MEAN CORPUSCULAR HGB CONC 32.9 % (32.0-36.0); NEUT % 56.8 % (16.0-70.0); PLATELET COUNT 109 TH/MM3 (150-450); RED BLOOD COUNT 3.15 MIL/MM3 (4.00-5.30); RED CELL DISTRIBUTION WIDTH 18.1 % (11.6-17.2); WHITE BLOOD COUNT 2.8 TH/MM3 (4.0-11.0)
[2017-03-10 07:56] LABS: BICARBONATE 25.9 MEQ/L (21.0-32.0); MAGNESIUM 1.7 MG/DL (1.5-2.5); POTASSIUM 3.8 MEQ/L (3.5-5.1)
[2017-03-10 08:00] VITALS: BP 135/62; PULSE 44; PULSE 62; RESP 20; TEMP 97.7; O2SAT 98
[2017-03-10] MEDS: BUMETANIDE 1 MG TAB PO SCH (08:19)
[2017-03-10] MEDS: PANTOPRAZOLE SOD 40 MG DELAYED RELEASE TAB PO SCH (08:19)
[2017-03-10] MEDS: QUEtiapine FUMARATE 100 MG TAB PO SCH (08:19)
[2017-03-10] MEDS: CALCITONIN SALM 200 UNIT/SPRAY 3.7 ML BTLN NASAL SCH (08:19)
[2017-03-10] MEDS: MUPIROCIN 2% OINT 1 APPLIC/GM SYR EACH NARE SCH (08:20)
[2017-03-10] MEDS: SUCRALFATE 1 GM TAB PO SCH ×3 (08:20→17:15)
[2017-03-10] MEDS: ALPRAZolam 0.25 MG TAB PO PRN ×2 (08:20→17:14)
[2017-03-10] MEDS: ASPIRIN 81 MG CHEW TAB CHEW SCH (08:20)
[2017-03-10] MEDS: SODIUM CHLORIDE 0.9% FLUSH 10 ML FLUSH IV FLUSH SCH (08:23)
[2017-03-10] MEDS: DOCUSATE SODIUM 50 MG/SENNA 8.6 MG TAB PO SCH (08:23)
[2017-03-10] MEDS: POLYETHYLENE GLYCOL 17 GM PKG PO SCH (08:23)
[2017-03-10] MEDS: CARVEDILOL 12.5 MG TAB PO SCH (09:00)
[2017-03-10] MEDS: AMIODARONE 200 MG TAB PO SCH (09:40)
[2017-03-10] MEDS: ISOSORBIDE DINITRATE 40 MG SUSTAINED RELEASE TAB PO SCH ×2 (09:40→14:57)
[2017-03-10] MEDS ORDERED: CARV6.25 PO (10:56)
[2017-03-10] MEDS ORDERED: CARVEDILOL 6.25 MG TAB PO SCH (11:20)
[2017-03-10 11:35] LABS: APTT (PATIENT) 46.1 SEC (24.3-30.1); INTERNATIONAL NORMALIZED RATIO 2.6 RATIO; PROTHROMBIN TIME - PATIENT 26.3 SEC (9.8-11.6)
[2017-03-10] MEDS ORDERED: B-122000 PO (11:44)
--- NOTE | 2017-03-10 11:47 | HHI.PR ---
Subjective Remarks She says she is feeling all right. Denies chest pain or shortness of breath. Discussed with nursing. Heart rate down to 42 overnight. Will decrease Coreg dose. Objective Vital Signs Date Time Temp Pulse Resp B/P (MAP) Pulse Ox O2 Delivery O2 Flow Rate FiO2 03/10/17 09:01 Nasal Cannula 2.00 03/10/17 08:00 62 03/10/17 08:00 97.7 44 20 135/62 (86) 98 03/10/17 04:00 44 03/10/17 04:00 97.3 50 17 125/59 (81) 99 03/10/17 00:00 65 03/10/17 00:00 97.3 70 17 131/61 (84) 95 03/09/17 20:00 49 03/09/17 20:00 98 Nasal Cannula 2.00 03/09/17 20:00 97.3 64 17 160/80 (106) 98 03/09/17 17:52 98 Nasal Cannula 2.00 03/09/17 16:00 97.6 80 18 143/64 (90) 98 03/09/17 16:00 58 03/09/17 12:00 97.4 50 18 122/56 (78) 96 03/09/17 12:00 46 I/O 03/09/17 03/09/17 03/09/17 03/10/17 03/10/17 03/10/17 06:59 14:59 22:59 06:59 14:59 22:59 Intake Total 991.8 ml 720 ml 240 ml Balance 991.8 ml 720 ml 240 ml Intake Oral 950 ml 720 ml 240 ml IV Total 41.8 ml # Voids 4 3 3 # Bowel Movements 0 1 0 Result Diagram: 03/10/17 0612 03/10/17 0612 Objective Remarks GENERAL: Patient sitting up in bed. Appears comfortable.exam again unchanged from yesterday. SKIN: Warm and dry. HEAD: Normocephalic. EYES: No scleral icterus. No injection or drainage. NECK: Supple, trachea midline. No JVD or lymphadenopathy. CARDIOVASCULAR: Regular rate and rhythm without murmurs, gallops, or rubs. RESPIRATORY: Breath sounds equal bilaterally. No accessory muscle use. GASTROINTESTINAL: Abdomen soft, non-tender, nondistended. MUSCULOSKELETAL: No cyanosis, or edema. BACK: Nontender without obvious deformity. No CVA tenderness. A/P Assessment and Plan 03/10. Pancytopenia stable. We'll restart B12 replacement. Appreciate hematology assistance. INR 2.6. Discontinue heparin drip. Discharge on warfarin. -Pathology still pending from bronchoscopy. -Discharge to rehabilitation. //Chronic anoxic encephalopathy //Chronic benzodiazepine use //Spinal stenosis status post placement of a morphine intrathecal device Currently on alprazolam 0.5 mg every 8 hours. Anxiety Currently on quetiapine 100 Mg Twice a Day Fentanyl patch 50 g every 72 hours. Acetaminophen for fever Hydrocodone/acetaminophen 5/325 one tablet every 4 hours when necessary pain 1- 5 and morphine sulfate 2 mg IV every 2 hours. Pain 6- -03/08. Discussed with psychiatry. Appreciate assistance. Cancel psychiatry consultation. Patient, together with have decided to opt for medical management of cardiac issues below.. CV: //Bradycardia - resolved //Chest pain //History of V. fib arrest secondary to hyperkalemia //Chronic systolic heart failure ejection fraction 40% //Coronary disease status post stent 4 //Hypertension //History of paroxysmal atrial fibrillation currently in first-degree AV block Followed by cardiology/Dr. Willard. Plan for cardiac catheterization possibly when stabilized Serial troponins EKG revealed first-degree AV block. ST-T depression in the inferior and lateral leads. Patient has a known ejection fraction 40-45%. Pulmonary artery pressures around 44 mmHg Currently on aspirin 81 mg daily On amiodarone 200 mg by mouth daily currently and hydralazine 100 mg every 8 hours, Isordil dinitrate 40 mg twice a day, carvedilol 12.5 mg twice a day and diltiazem 120 mg daily. Carvedilol initiated 03/02 and hold diltiazem today Continue aspirin 81 mg daily Bumetanide 1 mg daily 03/08. Transitioning to Coumadin. INR 1.4. Continue heparin for now. Recheck INR tomorrow. Resp: //Acute respiratory failure Currently on nasal cannula to maintain saturations greater than or equal to 92% Incentive spirometry while awake Follow-up ABG and chest x-ray CT thorax reveals small bilateral pleural effusions, groundglass opacities and subcentimeter pulmonary nodules. Pulmonology following , Dr. Collins S/P bronchoscopy with biopsies 03/06 = Follow-up pathology. Follow-up pulmonology as outpatient. GI: //Gastritis/history of gastric ulcer //External hemorrhoids //Hypoalbuminemia Patient is currently nothing by mouth except for medications Pantoprazole for GI prophylaxis Sucralfate 1 g 3 times a day history of gastric ulcers. On polyethylene glycol 17 g daily with constipation along with our bowel regimen docusate/senna 1 tablet twice a day : Olson catheter if indicated for accurate I's and O's in a critically ill patient Endo: Hyperglycemia History of partial thyroidectomy/parathyroidectomy Sliding-scale insulin with Accu-Cheks before meals/at bedtime to maintain euglycemia moderate regimen with Novulin R Renal: Chronic kidney disease stage IV. Nephrology actively following. No need for dialysis at this time. Follow-up with nephrology as outpatient. Heme: Anemia of chronic kidney disease. Hemoglobin stable. Elevated INR/PTT Chronic warfarin use Leukopenia Anemia Thrombocytopenia Monitor CBC Heparin drip to be continued. 03/01 Transfused 2 units PRBCs per cardiology's request ID: Monitor for infection FEN: Replace electrolytes as clinically indicated MSK: PT evaluate and treat Access - Utilize right Port-A-Cath. Prophylaxis - GI - pantoprazole - DVT - SCD/heparin drip resumed post bronch Discharge Planning -Likely discharge home with home health tomorrow if leukocytes stable, cleared by hematology.. -Follow up INR againtomorrow. patient may need bridging. -Follow-up with cardiology, pulmonology, nephrology, primary care. Discharge Planning Discharge to rehabilitation. -INR 2.6. Need for bridging. -Follow-up with cardiology, pulmonology, nephrology, primary care. Kvng Dunn MD Mar 10, 2017 11:47
--- NOTE | 2017-03-10 11:47 | PD.ONC.PN ---
Subjective Subjective Remarks Afebrile overnight. Patient resting in bed. feeling anxious. tired of being in the hospital. Objective Data Date Time Temp Pulse Resp B/P (MAP) Pulse Ox O2 Delivery O2 Flow Rate FiO2 03/10/17 09:01 Nasal Cannula 2.00 03/10/17 08:00 62 03/10/17 08:00 97.7 44 20 135/62 (86) 98 03/10/17 04:00 44 03/10/17 04:00 97.3 50 17 125/59 (81) 99 03/10/17 00:00 65 03/10/17 00:00 97.3 70 17 131/61 (84) 95 03/09/17 20:00 49 03/09/17 20:00 98 Nasal Cannula 2.00 03/09/17 20:00 97.3 64 17 160/80 (106) 98 03/09/17 17:52 98 Nasal Cannula 2.00 03/09/17 16:00 97.6 80 18 143/64 (90) 98 03/09/17 16:00 58 03/09/17 12:00 97.4 50 18 122/56 (78) 96 03/09/17 12:00 46 03/10/17 03/10/17 03/10/17 07:00 15:00 23:00 Intake Total 240 ml Balance 240 ml Result Diagram: 03/10/1712 03/10/17 0612 Laboratory Results Laboratory Tests Test 03/09/17 12:43 03/10/17 06:12 03/10/17 10:45 Prothrombin Time 19.0 SEC Prothromb Time International Ratio 1.9 RATIO Activated Partial Thromboplast Time 41.7 SEC White Blood Count 2.8 TH/MM3 Red Blood Count 3.15 MIL/MM3 Hemoglobin 9.2 GM/DL Hematocrit 28.0 % Mean Corpuscular Volume 88.9 FL Mean Corpuscular Hemoglobin 29.2 PG Mean Corpuscular Hemoglobin Concent 32.9 % Red Cell Distribution Width 18.1 % Platelet Count 109 TH/MM3 Mean Platelet Volume 8.7 FL Neutrophils (%) (Auto) 56.8 % Lymphocytes (%) (Auto) 28.5 % Monocytes (%) (Auto) 10.0 % Eosinophils (%) (Auto) 3.8 % Basophils (%) (Auto) 0.9 % Neutrophils # (Auto) 1.6 TH/MM3 Lymphocytes # (Auto) 0.8 TH/MM3 Monocytes # (Auto) 0.3 TH/MM3 Eosinophils # (Auto) 0.1 TH/MM3 Basophils # (Auto) 0.0 TH/MM3 CBC Comment DIFF FINAL Differential Comment Blood Urea Nitrogen 53 MG/DL Creatinine 2.81 MG/DL Random Glucose 71 MG/DL Albumin 2.6 GM/DL Calcium Level 9.5 MG/DL Phosphorus Level 3.1 MG/DL Magnesium Level 1.7 MG/DL Sodium Level 132 MEQ/L Potassium Level 3.8 MEQ/L Chloride Level 95 MEQ/L Carbon Dioxide Level 25.9 MEQ/L Anion Gap 11 MEQ/L Estimat Glomerular Filtration Rate 16 ML/MIN Administered Medications Medications (Trade) Dose Ordered Sig/Yue Route PRN Reason Start Time Stop Time Status Last Admin Dose Admin Sodium Chloride (NS Flush) 2 ml BID IV FLUSH 02/28/17 09:00 03/10/17 08:23 Alprazolam (Xanax) 0.25 mg Q8H PRN PO ANXIETY 02/27/17 21:45 03/10/17 08:20 Amiodarone HCl (Cordarone) 200 mg DAILY PO 02/28/17 09:00 03/10/17 09:40 Aspirin (Aspirin Chew) 81 mg DAILY CHEW 02/28/17 09:00 03/10/17 08:20 Bumetanide (Bumetanide) 1 mg DAILY PO 02/28/17 09:00 03/10/17 08:19 Diltiazem HCl (Cardizem) 30 mg Q6HR PO 02/28/17 00:00 Future Hold 02/28/17 07:00 Fentanyl (Duragesic 50 Mcg Patch.72 Hr) 1 patch Q72H T-DERMAL 03/02/17 12:00 03/08/17 13:02 Hydralazine HCl (Apresoline) 100 mg Q8HR PO 02/27/17 22:00 03/10/17 05:36 Isosorbide Dinitrate (Isordil Tembids Cr) 40 mg BID@08,14 PO 02/28/17 08:00 03/10/17 09:40 Quetiapine Fumarate (SEROquel) 100 mg BID PO 02/28/17 09:00 03/10/17 08:19 Heparin Sodium/ Dextrose 250 ml @ 8 mls/hr TITRATE PRN IV Coagulation Management 02/27/17 22:30 Future hold 03/08/17 19:17 Heparin Sodium (Porcine) (Heparin Inj) 2,500 units UNSCH PRN IV PUSH aPTT 25 to 39 02/27/17 22:30 03/06/17 05:36 Pantoprazole Sodium (Protonix) 40 mg DAILY PO 02/28/17 09:00 03/10/17 08:19 Polyethylene Glycol (Miralax) 17 gm DAILY PO 03/01/17 09:00 03/09/17 08:12 Sucralfate (Carafate) 1 gm TID PO 02/28/17 13:00 03/10/17 08:20 Miscellaneous Information 1 Q3D T-DERMAL 03/02/17 12:00 03/08/17 12:00 Acetaminophen (Tylenol) 650 mg Q6H PRN PO FEVER >101F 02/28/17 13:15 03/07/17 11:47 Acetaminophen/ Hydrocodone Bitart ([place] 5-325 Mg) 1 tab Q4H PRN PO PAIN SCALE 1 TO 5 02/28/17 13:15 03/08/17 09:16 Morphine Sulfate (Morphine Inj) 2 mg Q2H PRN IV PUSH PAIN SCALE 6 TO 10 02/28/17 13:15 03/10/17 06:21 Miscellaneous Information 1 Q361D XX 02/28/17 13:15 02/28/17 13:15 Chlorhexidine Gluconate (Chlorhexidine 2% Cloth) Taper DAILY@04 TOP 03/01/17 04:00 02/25/18 03:59 03/07/17 04:00 Senna/Docusate Sodium (Jacqueline-Colace) 1 tab BID PO 02/28/17 21:00 03/09/17 20:59 Mupirocin (Bactroban Nasal 2% Oint) Taper BID EACH NARE 03/01/17 21:00 02/25/18 20:59 03/10/17 08:20 Warfarin Sodium (Coumadin) 5 mg DAILY@1600 PO 03/07/17 17:00 03/09/17 17:49 Objective Remarks GENERAL: Elderly female sitting up in bed [facility]. SKIN: Warm and dry. HEAD: Normocephalic. EYES: No injection or drainage. NECK: Supple, trachea midline. CARDIOVASCULAR: +S1/S2 RESPIRATORY: anterior ruff clear. On 2L O2 via NC GASTROINTESTINAL: Abdomen soft, non-tender, nondistended. EXTREMITIES: No cyanosis NEUROLOGICAL: awake and alert, normal speech. Assessment/Plan Problem List: (1) Pancytopenia ICD Codes: D61.818 - Other pancytopenia Plan: 03/10: transfuse if hgb<8. no transfusion needed today. --no further evaluation for the pancytopenia recommended. recommend following up with Dr. Lemos upon discharge -- CT ab/pelvis no hepatosplenomegaly --most likely due to underlying bone marrow pathology such as MDS. --anemia -->multifactorial likely due to underlying bone marrow pathology such as MDS +/- anemia of chronic renal failure. --thrombocytopenia -->is mild and she is not symptomatic from that. --leukopenia and mild neutropenia with lymphopenia--> suspect she may have some underlying bone marrow pathology such as MDS. --has been under the care of horse racer oncologist Dr. Charlotte Lemos in [place]. --receives B12 shots every 6 weeks + periodic blood transfusion whenever she is severely anemic. Assessment 76y/o female with pancytopenia. h/o Atrial fibrillation. History of ventricular arrest. Systolic congestive heart failure. Hypertension. Chronic low back pain. Coronary artery disease. Chronic kidney disease stage IV. Anxiety disorder. Hard of hearing. Attending Statement The exam, history, and the medical decision-making described in the above note were completed with the assistance of the mid-level provider. I reviewed and agree with the findings presented. I attest that I had a [id number] encounter with the patient on the same day, and personally performed and documented my assessment and findings in the medical record. No new c/o blood counts are ok No Tx monitor cbc Lisa Taylor Mar 10, 2017 11:47 Jaskaran Guerra MD Mar 10, 2017 17:24
--- NOTE | 2017-03-10 11:48 | HHI.DS ---
Discharge Summary Admission Date Feb 27, 2017 at 20:07 Discharge Date: Mar 10, 2017 Admitting Diagnosis NSTEMI . (1) NSTEMI (non-ST elevated myocardial infarction) ICD Code: I21.4 - Non-ST elevation (NSTEMI) myocardial infarction (2) Systolic CHF ICD Code: I50.20 - Unspecified systolic (congestive) heart failure (3) H/O ventricular fibrillation ICD Code: Z86.79 - Personal history of other diseases of the circulatory system (4) Paroxysmal A-fib ICD Code: I48.0 - Paroxysmal atrial fibrillation (5) Anemia ICD Code: D64.9 - Anemia, unspecified (6) CAD (coronary artery disease) ICD Code: I25.10 - Atherosclerotic heart disease of [place] coronary artery without angina pectoris (7) Chronic back pain ICD Code: M54.9 - Dorsalgia, unspecified; G89.29 - Other chronic pain Status: Chronic (8) History of ventilator dependency ICD Code: Z99.11 - Dependence on respirator [ventilator] status Status: Resolved (9) Hx of respiratory failure ICD Code: Z87.09 - Personal history of other diseases of the respiratory system Status: Resolved (10) Stage 4 chronic kidney disease ICD Code: N18.4 - Chronic kidney disease, stage 4 (severe) Procedures Status post bronchoscopy. Results still pending.. Brief History - From Admission Mrs. Buckley is a 76 y/o female with a history of renal failure requiring HD about 3 weeks ago, CAD s/p cardiac stents x 4, systolic CHF, hypertension, chronic anemia, chronic lower back pain secondary to spinal stenosis, and hyperkalemia with potassium of 7.8 leading to ventricular fibrillation CP arrest with admission to [facility] on 11/14/16. She was placed on a ventilator and developed sepsis and pneumonia complications. She was discharged with trach and PEG to [facility] in [place] on . The patient was transferred to [facility] on 01/23/17 following trach decannulation. She was transferred to [facility] for hypoxic respiratory distress 02/03/17 and required intubation. Panendoscopy and Colonoscopy were done for hgb 6.9 with findings of gastritis, diverticulosis, and 2 large external hemorrhoids. Her breathing improved and she was extubated, PEG was removed as she was nutritionally improving, she began to make urine and was sent back to [facility] on 02/13/17. She has been suffering from residual anoxic encephalopathy and is a poor historian as a result. On 02/27/17, she was anticipating discharge from [place] as she had met her goals. She reports an increase in anxiety leading to palpitations and pain under right and left arms that would not go away (states she's had these pains intermittently but they always spontaneously resolve). She reported chest pain to the hospitalist according to their notes. She was also having some left sided chest pain related to Vas cath removal. She indicates she has not required dialysis for 3 weeks. The patient relates her symptoms to anxiety. Denies shortness of breath with ambulation, nausea, vomiting, diaphoresis, diarrhea, black or red stool, dysuria, hematuria, dizziness, or syncope. Her outpatient knowledge analyst is Dr. Montaño in [place]. She reports that in October, she had an abnormal nuclear stress test and was told that one of her arteries was "clogged". At that time, according to the patient, her knowledge analyst would not perform a cardiac catheterization due to poor renal function. CBC/BMP: 03/10/17 0612 03/10/17 0612 Significant Findings Laboratory Tests Test 03/08/17 09:25 03/08/17 12:05 03/08/17 18:55 03/09/17 05:45 White Blood Count 3.2 TH/MM3 (4.0-11.0) 2.6 TH/MM3 (4.0-11.0) Red Blood Count 3.38 MIL/MM3 (4.00-5.30) 3.17 MIL/MM3 (4.00-5.30) Hemoglobin 10.0 GM/DL (11.6-15.3) 9.3 GM/DL (11.6-15.3) Hematocrit 30.2 % (35.0-46.0) 28.3 % (35.0-46.0) Red Cell Distribution Width 18.1 % (11.6-17.2) 18.2 % (11.6-17.2) Platelet Count 116 TH/MM3 (150-450) 118 TH/MM3 (150-450) Prothrombin Time 14.0 SEC (9.8-11.6) Activated Partial Thromboplast Time 40.4 SEC (24.3-30.1) 42.3 SEC (24.3-30.1) Neutrophils # (Auto) 1.6 TH/MM3 (1.8-7.7) Lymphocytes # (Auto) 0.7 TH/MM3 (1.0-4.8) Blood Urea Nitrogen 51 MG/DL (7-18) Creatinine 2.72 MG/DL (0.50-1.00) Random Glucose 63 MG/DL (74-106) Albumin 2.6 GM/DL (3.4-5.0) Sodium Level 134 MEQ/L (136-145) Chloride Level 97 MEQ/L (98-107) Estimat Glomerular Filtration Rate 17 ML/MIN (>89) Vitamin B12 Level 1055 PG/ML (193-986) Folate GREATER THAN 20.0 NG/ML Test 03/09/17 12:43 03/10/17 06:12 03/10/17 10:45 Prothrombin Time 19.0 SEC (9.8-11.6) 26.3 SEC (9.8-11.6) Activated Partial Thromboplast Time 41.7 SEC (24.3-30.1) 46.1 SEC (24.3-30.1) White Blood Count 2.8 TH/MM3 (4.0-11.0) Red Blood Count 3.15 MIL/MM3 (4.00-5.30) Hemoglobin 9.2 GM/DL (11.6-15.3) Hematocrit 28.0 % (35.0-46.0) Red Cell Distribution Width 18.1 % (11.6-17.2) Platelet Count 109 TH/MM3 (150-450) Monocytes (%) (Auto) 10.0 % (0.0-8.0) Neutrophils # (Auto) 1.6 TH/MM3 (1.8-7.7) Lymphocytes # (Auto) 0.8 TH/MM3 (1.0-4.8) Blood Urea Nitrogen 53 MG/DL (7-18) Creatinine 2.81 MG/DL (0.50-1.00) Random Glucose 71 MG/DL (74-106) Albumin 2.6 GM/DL (3.4-5.0) Sodium Level 132 MEQ/L (136-145) Chloride Level 95 MEQ/L (98-107) Estimat Glomerular Filtration Rate 16 ML/MIN (>89) Imaging Last Impressions Chest X-Ray 03/05/17 0600 Signed Impressions: Service Date/Time: Sunday, March 05, 2017 04:31 - CONCLUSION: No acute disease. Guicho Herrera MD Chest CT 03/01/17 0000 Signed Impressions: Service Date/Time: Wednesday, March 01, 2017 11:07 - CONCLUSION: 1. Numerous bilateral subcentimeter pulmonary nodules concerning for metastatic disease. 2. Small bilateral pleural effusions and scattered groundglass densities could be infiltrate. 3. Coronary artery calcifications. Jea nPaul Arvizu MD Abdomen/Pelvis CT 03/01/17 0000 Signed Impressions: Service Date/Time: Wednesday, March 01, 2017 11:07 - CONCLUSION: 1. Diverticulosis without diverticulitis. 2. Status post cholecystectomy. 3. Atrophic kidneys. 4. No mass or adenopathy. Jean Paul Arvizu MD Hospital Course 03/10. Pancytopenia stable. We'll restart B12 replacement. Appreciate hematology assistance. INR 2.6. Discontinue heparin drip. Discharge on warfarin. -Pathology still pending from bronchoscopy. -Discharge to rehabilitation. //Chronic anoxic encephalopathy //Chronic benzodiazepine use //Spinal stenosis status post placement of a morphine intrathecal device Currently on alprazolam 0.5 mg every 8 hours. Anxiety Currently on quetiapine 100 Mg Twice a Day Fentanyl patch 50 g every 72 hours. Acetaminophen for fever Hydrocodone/acetaminophen 5/325 one tablet every 4 hours when necessary pain 1- 5 and morphine sulfate 2 mg IV every 2 hours. Pain 6-10 -12/. Discussed with psychiatry. Appreciate assistance. Cancel psychiatry consultation. Patient, together with have decided to opt for medical management of cardiac issues below.. CV: //Bradycardia - resolved //Chest pain //History of V. fib arrest secondary to hyperkalemia //Chronic systolic heart failure ejection fraction 40% //Coronary disease status post stent 4 //Hypertension //History of paroxysmal atrial fibrillation currently in first-degree AV block Followed by cardiology/Dr. Willard. Plan for cardiac catheterization possibly when stabilized Serial troponins EKG revealed first-degree AV block. ST-T depression in the inferior and lateral leads. Patient has a known ejection fraction 40-45%. Pulmonary artery pressures around 44 mmHg Currently on aspirin 81 mg daily On amiodarone 200 mg by mouth daily currently and hydralazine 100 mg every 8 hours, Isordil dinitrate 40 mg twice a day, carvedilol 12.5 mg twice a day and diltiazem 120 mg daily. Carvedilol initiated 03/02 and hold diltiazem today Continue aspirin 81 mg daily Bumetanide 1 mg daily 03/08. Transitioning to Coumadin. INR 1.4. Continue heparin for now. Recheck INR tomorrow. Resp: //Acute respiratory failure Currently on nasal cannula to maintain saturations greater than or equal to 92% Incentive spirometry while awake Follow-up ABG and chest x-ray CT thorax reveals small bilateral pleural effusions, groundglass opacities and subcentimeter pulmonary nodules. Pulmonology following , Dr. Collins S/P bronchoscopy with biopsies 03/06 = Follow-up pathology. Follow-up pulmonology as outpatient. GI: //Gastritis/history of gastric ulcer //External hemorrhoids //Hypoalbuminemia Patient is currently nothing by mouth except for medications Pantoprazole for GI prophylaxis Sucralfate 1 g 3 times a day history of gastric ulcers. On polyethylene glycol 17 g daily with constipation along with our bowel regimen docusate/senna 1 tablet twice a day : Olson catheter if indicated for accurate I's and O's in a critically ill patient Endo: Hyperglycemia History of partial thyroidectomy/parathyroidectomy Sliding-scale insulin with Accu-Cheks before meals/at bedtime to maintain euglycemia moderate regimen with Novulin R Renal: Chronic kidney disease stage IV. Nephrology actively following. No need for dialysis at this time. Follow-up with nephrology as outpatient. Heme: Anemia of chronic kidney disease. Hemoglobin stable. Elevated INR/PTT Chronic warfarin use Leukopenia Anemia Thrombocytopenia Monitor CBC Heparin drip to be continued. 03/01 Transfused 2 units PRBCs per cardiology's request ID: Monitor for infection FEN: Replace electrolytes as clinically indicated MSK: PT evaluate and treat Access - Utilize right Port-A-Cath. Prophylaxis - GI - pantoprazole - DVT - SCD/heparin drip resumed post bronch Discharge Planning -Likely discharge home with home health tomorrow if leukocytes stable, cleared by hematology.. -Follow up INR againtomorrow. patient may need bridging. -Follow-up with cardiology, pulmonology, nephrology, primary care. Pt Condition on Discharge: Good Discharge Disposition: Discharge to SNF Discharge Time: > 30 minutes Discharge Instructions DIET: Follow Instructions for: Heart Healthy Diet, Diabetic Diet Activities you can perform: Regular-No Restrictions Follow up Referrals: Cardiology - 1 Week with Adryan Sanchez MD Nephrology - 1 Week with Zoran Shipman MD PCP Follow-up - 1 Week with Naeem Monteiro M.d. Pulmonology - 1 Week with Karina Collins MD New Medications: Carvedilol (Coreg) 6.25 Mg Tab 6.25 MG PO BID for heart, #60 TAB 0 Refills Cyanocobalamin (B-12) 2,000 Mcg Tab 2000 MCG PO DAILY for Nutritional Supplement, #1 BOTTLE 0 Refills [Albuterol Neb] () 2.5 MG/3 ML NEBU 2.5 MG INH Q2HR NEB PRN for SOB/WHEEZING for 30 Days Continued Medications: Acetaminophen (Tylenol) 325 Mg Tab 325 MG PO Q6H PRN for INCREASED TEMPERATURE, TAB 0 Refills Alprazolam (Xanax) 0.25 Mg Tab 0.25 MG PO Q8H PRN for ANXIETY, #30 TAB Amiodarone (Amiodarone) 200 Mg Tab 200 MG PO DAILY for Regulate Heart Beat, #30 TAB 0 Refills Aspirin (Tgt Aspirin) 81 Mg Chw 81 MG CHEW DAILY, #30 EA Bisacodyl Supp (Bisacodyl Supp) 10 Mg Supp 10 MG RECTAL DAILY PRN for CONSTIPATION, SUPP 0 Refills Bumetanide (Bumetanide) 1 Mg Tab 1 MG PO DAILY, #30 TAB Calcitonin ([place]) Nasal [place] (Calcitonin ([place]) Nasal [place]) 200 Units/Act Soln 1 SPRAY NASAL DAILY for Osteoporosis, #3.7 ML 0 Refills Alternate nostrils daily. Docusate Sodium (Docusate Sodium) 100 Mg Cap 100 MG PO BID for Prevent Constipation, #60 CAP 0 Refills Fentanyl Patch 72 HR (Fentanyl Patch 72 HR) 50 Mcg/Hr Patch 50 MCG T-DERMAL Q72H for Pain Management, #10 PATCH 0 Refills Remove old patch when new one placed. Hydralazine (Hydralazine) 100 Mg Tab 100 MG PO Q8HR for Blood Pressure Management, #90 TAB Take with meals Isosorbide Dinitrate ER (Isosorbide Dinitrate ER) 40 Mg Cheryl 40 MG PO BID@08,14 for cad, #60 TAB Magnesium Oxide (Magnesium Oxide) 400 Mg Tab 400 MG PO BID, #60 TAB Polyethylene Glycol 3350 Powder (Miralax Powder) 17 Gm Powd 17 GM PO DAILY for Constipation, #1 CAN 0 Refills Mix and dissolve one measuring cap-ful (17 grams) in water or juice. Potassium Chloride ER (Klor-Con 10) 10 Meq Tab 10 MEQ PO Q12HR, #60 TAB Quetiapine (Quetiapine) 100 Mg Tab 100 MG PO BID, #60 TAB 0 Refills Sucralfate (Sucralfate) 1 Gram Tab 1 GM PO TID for Duodenal ulcer, #90 TAB 0 Refills on empty stomach Warfarin (Coumadin) 5 Mg Tab 5 MG PO DAILY@1600, #1 TAB Discontinued Medications: Carvedilol (Coreg) 12.5 Mg Tab 12.5 MG PO Q12HR, #60 TAB Diltiazem (Cardizem) 30 Mg Tab 30 MG PO Q6HR, #120 TAB [Metoclopramide Liq] () 10 MG/10 ML SYRP 5 MG PO QID, #1 Kvng Dunn MD Mar 10, 2017 11:48
[2017-03-10 12:00] VITALS: BP 162/73; PULSE 67; PULSE 78; RESP 20; TEMP 97.5; O2SAT 95
--- NOTE | 2017-03-10 13:42 | HHI.NPPN ---
Subjective History of Present Illness 76 y/o female with a PMH that includes A fib/flutter on chronic Coumadin, HTN, hyperlipidemia, CAD/ischemic cardiomyopathy. She also has CKD 4. In October she was seen in [facility] with acute hyperkalemia and suffered cardiac arrest. She did survive, was on the ventilator for prolonged period with a trach, eventually weened off the vent and trach, and transferred to [facility] and later to [facility]. The patient had to be dialyzed emergently in October due to hyperkalemia. Additional Remarks patient is comfortable. No respiratory distress is noted. Renal function is stable. Review of Systems General Constitutional: Fatigue Cardiovascular Cardiac: Edema, SNYDER Objective Data Data Vital Signs Date Time Temp Pulse Resp B/P (MAP) Pulse Ox O2 Delivery O2 Flow Rate FiO2 03/10/17 09:01 Nasal Cannula 2.00 03/10/17 08:00 62 03/10/17 08:00 97.7 44 20 135/62 (86) 98 03/10/17 04:00 44 03/10/17 04:00 97.3 50 17 125/59 (81) 99 03/10/17 00:00 65 03/10/17 00:00 97.3 70 17 131/61 (84) 95 03/09/17 20:00 49 03/09/17 20:00 98 Nasal Cannula 2.00 03/09/17 20:00 97.3 64 17 160/80 (106) 98 03/09/17 17:52 98 Nasal Cannula 2.00 03/09/17 16:00 97.6 80 18 143/64 (90) 98 03/09/17 16:00 58 -: 03/10/17 0612 03/10/17 0612 Physical Exam General Appearance: No Acute Distress, Comfortable Eyes Eye Exam: Pupils Equal Throat Throat Exam: Oral Mucosa Bier & Moist Pulmonary Resp Exam: Clear Bilaterally, Breath Sounds Equal, No Distress Cardiology CV Exam: Regular Gastrointestinal/Abdomen GI Exam: Soft, Non-Tender, Bowel Sounds Present Neurologic Neuro Exam: Alert, Awake Assessment/Plan Problem List: (1) Stage 4 chronic kidney disease ICD Codes: N18.4 - Chronic kidney disease, stage 4 (severe) Plan: Last HD was 02/12; PermCath was removed She is non oliguric No need for dialysis at this time. Renal function is stable, GFR at baseline. cr 2.8 higher give IVF 1 L NS AT 100 CC/HR follow bmp (2) NSTEMI (non-ST elevated myocardial infarction) ICD Codes: I21.4 - Non-ST elevation (NSTEMI) myocardial infarction Plan: Cardiology following On heparin Gtt (3) Anemia in chronic renal disease ICD Codes: N18.9 - Chronic kidney disease, unspecified; D63.1 - Anemia in chronic kidney disease Status: Chronic Plan: Epogen can be given intermittently. (4) Paroxysmal A-fib ICD Codes: I48.0 - Paroxysmal atrial fibrillation Plan: Coumadin to be restarted. (5) Lung nodule, multiple ICD Codes: R91.8 - Other nonspecific abnormal finding of lung field Plan: Being followed by Pulmonary, bronchoscopy done follow results Bryan Salazar MD Mar 10, 2017 13:42
[2017-03-10] MEDS ORDERED: SODIUM CHLOR 0.9% 1000 ML INJ 1,000 ML IV SCH (13:45)
[2017-03-10 16:00] VITALS: BP 131/62; PULSE 63; PULSE 74; RESP 18; TEMP 97.8; O2SAT 97
[2017-03-10] MEDS ORDERED: SODIUM CHLORIDE 0.9% FLUSH 10 ML FLUSH IV FLUSH PRN (16:00)
[2017-03-10 16:28] LABS: HEMOGLOBIN A1a 1.5 %; HEMOGLOBIN A1b 0.8 %; HEMOGLOBIN Ao 84.6 %; HEMOGLOBIN F 1.3 %; HEMOGLOBIN LA1C 1.8 %; HEMOGLOBIN P3 5.6 %
--- NOTE | 2017-03-10 17:08 | HHI.PR ---
Subjective Remarks NO ACUTE DISTRESS ON O2 THERAPY sitting at bedside TOLERATED BRONCHOSCOPY WELL Objective Vital Signs Date Time Temp Pulse Resp B/P (MAP) Pulse Ox O2 Delivery O2 Flow Rate FiO2 03/10/17 16:00 74 03/10/17 14:33 Nasal Cannula 2.00 03/10/17 12:00 67 03/10/17 12:00 97.5 78 20 162/73 (102) 95 03/10/17 09:01 Nasal Cannula 2.00 03/10/17 08:00 62 03/10/17 08:00 97.7 44 20 135/62 (86) 98 03/10/17 04:00 44 03/10/17 04:00 97.3 50 17 125/59 (81) 99 03/10/17 00:00 65 03/10/17 00:00 97.3 70 17 131/61 (84) 95 03/09/17 20:00 49 03/09/17 20:00 98 Nasal Cannula 2.00 03/09/17 20:00 97.3 64 17 160/80 (106) 98 03/09/17 17:52 98 Nasal Cannula 2.00 I/O 03/09/17 03/09/17 03/09/17 03/10/17 03/10/17 03/10/17 07:00 15:00 23:00 07:00 15:00 23:00 Intake Total 991.8 ml 720 ml 240 ml Balance 991.8 ml 720 ml 240 ml Intake Oral 950 ml 720 ml 240 ml IV Total 41.8 ml # Voids 4 3 3 # Bowel Movements 0 1 0 Result Diagram: 03/10/1761103/10/17 0612 Objective Remarks GENERAL: SKIN: Warm and dry. HEAD: Atraumatic. Normocephalic. EYES: Pupils equal and round. No scleral icterus. No injection or drainage. ENT: No nasal bleeding or discharge. Mucous membranes pink and moist. NECK: Trachea midline. No JVD. CARDIOVASCULAR: Regular rate and rhythm. RESPIRATORY: No accessory muscle use. Clear to auscultation. Breath sounds equal bilaterally. GASTROINTESTINAL: Abdomen soft, non-tender, nondistended. Hepatic and splenic margins not palpable. MUSCULOSKELETAL: Extremities without clubbing, cyanosis, or edema. No obvious deformities. NEUROLOGICAL: Awake and alert. No obvious cranial nerve deficits. Motor grossly within normal limits. Five out of 5 muscle strength in the arms and legs. Normal speech. PSYCHIATRIC: Appropriate mood and affect; insight and judgment normal. Assessment and Plan Assessment and Plan BILATERAL LUNG NODULES CAD PLAN CHECK BRONCH RESULTS going to rehab will see in office 1 week Karina Collins MD Mar 10, 2017 17:08
== END 2017-03-10 17:38 | DRG 280 ==
LOC: HCIS 20:07 → HIMN 02-28 12:01 → N04B 03-07 22:14
PROVIDERS: ADMIT Internal Medicine; ATTEND Internal Medicine
PROC: 5A09457 Assistance with Respiratory Ventilation, 24-96 Consecutive Hours, Continuous Positive Airway Pressure (ICD-10-PCS; principal; 2017-02-28)
PROC: 0T9B70Z Drainage of Bladder with Drainage Device, Via Natural or Artificial Opening (ICD-10-PCS; 2017-02-28)
PROC: 30233N1 Transfusion of Nonautologous Red Blood Cells into Peripheral Vein, Percutaneous Approach (ICD-10-PCS; 2017-03-01)
PROC: 0BD78ZX Extraction of Left Main Bronchus, Via Natural or Artificial Opening Endoscopic, Diagnostic (ICD-10-PCS; 2017-03-06)
PROC: 0BD18ZX Extraction of Trachea, Via Natural or Artificial Opening Endoscopic, Diagnostic (ICD-10-PCS; 2017-03-06)
PROC: 0BD38ZX Extraction of Right Main Bronchus, Via Natural or Artificial Opening Endoscopic, Diagnostic (ICD-10-PCS; 2017-03-06)
PROC: 0BB18ZX Excision of Trachea, Via Natural or Artificial Opening Endoscopic, Diagnostic (ICD-10-PCS; 2017-03-06)
DX: I21.4 Non-ST elevation (NSTEMI) myocardial infarction (principal); J96.01 Acute respiratory failure with hypoxia; G93.1 Anoxic brain damage, not elsewhere classified; I13.2 Hypertensive heart and chronic kidney disease with heart failure and with stage 5 chronic kidney disease, or end stage renal disease; D61.818 Other pancytopenia; N18.4 Chronic kidney disease, stage 4 (severe); N17.9 Acute kidney failure, unspecified; J44.9 Chronic obstructive pulmonary disease, unspecified; R00.1 Bradycardia, unspecified; E88.09 Other disorders of plasma-protein metabolism, not elsewhere classified; K21.9 Gastro-esophageal reflux disease without esophagitis; D46.9 Myelodysplastic syndrome, unspecified; I50.22 Chronic systolic (congestive) heart failure; D63.1 Anemia in chronic kidney disease; I48.0 Paroxysmal atrial fibrillation; R91.8 Other nonspecific abnormal finding of lung field; Z95.5 Presence of coronary angioplasty implant and graft; M48.00 Spinal stenosis, site unspecified; I25.10 Atherosclerotic heart disease of native coronary artery without angina pectoris; I25.2 Old myocardial infarction; E78.5 Hyperlipidemia, unspecified; G89.29 Other chronic pain; M54.5 Low back pain; K64.4 Residual hemorrhoidal skin tags; K57.90 Diverticulosis of intestine, part unspecified, without perforation or abscess without bleeding; K29.70 Gastritis, unspecified, without bleeding; F41.9 Anxiety disorder, unspecified; I25.5 Ischemic cardiomyopathy; I44.0 Atrioventricular block, first degree; H91.90 Unspecified hearing loss, unspecified ear; K59.00 Constipation, unspecified; R73.9 Hyperglycemia, unspecified; I73.9 Peripheral vascular disease, unspecified; R79.1 Abnormal coagulation profile; E03.9 Hypothyroidism, unspecified; D50.9 Iron deficiency anemia, unspecified; E53.8 Deficiency of other specified B group vitamins; M10.9 Gout, unspecified; Z51.5 Encounter for palliative care; Z86.79 Personal history of other diseases of the circulatory system; Z87.891 Personal history of nicotine dependence; Z79.01 Long term (current) use of anticoagulants; Z79.899 Other long term (current) drug therapy; Z87.11 Personal history of peptic ulcer disease
CPT/HCPCS: 36430; 36600; 71010; 71250; 74176; 80048; 80053; 80069; 80076; 81001; 82140; 82150; 82607; 82746; 82805; 82948; 83036; 83605; 83690; 83735; 83921; 84100; 84443; 84484; 85025; 85027; 85384; 85610; 85730; 86850; 86900; 86901; 86920; 87015; 87040; 87070; 87086; 87102; 87116; 87205; 87206; 87641; 88112; 88305; 93005; 93308; 94003; 94150; J0171; J0461; J1642; J1644; J1940; J2270; J7030; P9016

== ENCOUNTER 2017-12-26 05:55 | Inpatient (IN) ==
[2017-12-26] MEDS ORDERED: Sod Chloride 0.9% Inj 1,000 ML IV.CONT SCH (06:00)
[2017-12-26] MEDS ORDERED: Propofol Inj 500 MG/50 ML Vial ONE (06:08)
[2017-12-26 06:54] LABS: ABG Base Excess -11.8 mmol/L (-2-2); ABG PCO2 36 mmHg (38-42); ABG PO2 180 mmHg (61-120)
--- NOTE | 2017-12-26 07:01 | XR ---
EXAM DATE: 12/26/2017 5:58 AM EDT AGE/SEX: 77 years / Female INDICATIONS: Post intubation CLINICAL DATA: This is the patient's initial encounter. Patient reports that signs and symptoms have been present for 1 day and indicates a pain score of Nonresponsive. MEDICAL/SURGICAL HISTORY: Anemia. Cardiovascular disease. Pacemaker. Appendectomy. Cholecystec melvi. Thyroidectomy. Port. COMPARISON: [facility], CHEST SINGLE AP, 03/05/2017. . FINDINGS: ETT is approximately 3 cm above the natalie. NGT in the stomach. Stable right IJ [id number]. Diffus e interstitial prominence in bilateral perihilar airspace opacities. Interval placement of dual-lead pacemaker with leads projecting over the right atrium and ventricle. Cardiomediastinal contours are w ithin normal limits given portable technique. Bony thorax is intact. CONCLUSION: 1. ETT and NGT in good position. 2. Diffuse interstitial edema and perihilar patchy airspace opacities in a pulmonary edema pattern. Electronically signed by: Madhu Draper MD 12/26/2017 6:59 AM EDT
[2017-12-26 07:22] LABS: Baso % (Auto) 0.3 % (0.0-2.0); Eos % (Auto) 0.3 % (0.0-4.0); Hematocrit 27.3 % (35.0-46.0); Lymph # (Auto) 0.4 th/mm3 (1.0-4.8); Lymph % (Auto) 6.1 % (9.0-44.0); Mean Corpuscular Hemoglobin 32.3 pg (27.0-34.0); Mean Corpuscular Volume 97.8 fL (80.0-100.0); Mean Platelet Volume 8.8 fL (7.0-11.0); Mono # (Auto) 0.4 th/mm3 (0.0-0.9); Mono % (Auto) 6.2 % (0.0-8.0); Neut # (Auto) 5.7 th/mm3 (1.8-7.7); Neut % (Auto) 87.1 % (16.0-70.0); Platelet Count 156 th/mm3 (150-450); Red Blood Count 2.79 mil/mm3 (4.00-5.30); Red Cell Distribution Width 17.3 % (11.6-17.2); White Blood Count 6.5 th/mm3 (4.0-11.0)
--- NOTE | 2017-12-26 07:24 | ED ---
HPI General Chief Complaint: Seizure Stated Complaint: resp Time Seen by Provider: 12/26/17 05:56 History of Present Illness HPI Narrative: Patient brought in by EMS from retirement with report of rapid development of shortness of breath immediately preceding patient falling unresponsive, with decreased or absent respiratory activity, followed by a seizure. EMS was called, but on arrival, found patient unresponsive, but with a palpable pulse, and patient was intubated on scene, with good breath sounds, but a blood pressure obtained of 57/31. Patient was transported to emergency department for further care, with little additional information. Patient has complicated medical history, including COPD, with prior episodes of respiratory insufficiency and hypoxemia, and STEMI January 2017, paroxysmal atrial fibrillation, pacemaker, heart failure, hypertension, chronic kidney disease, stage IV, with chronic anemia. She has had multiple hospitalizations here in the past, as well as at other hospitals, with comp located courses, and extensive rehabilitation, and has been retirement resident. No prior information about patient's immediate past history is available. Related Data Home Medications Medication Instructions Recorded Confirmed Pepcid AC See Label Instructions .ROUTE 12/28/17 12/28/17 .COMPLEX amlodipine 10 mg PO DAILY 12/28/17 12/28/17 hydralazine 100 mg PO BID 12/28/17 12/28/17 hydrocodone-acetaminophen 1 tab PO Q4-6H PRN 12/28/17 12/28/17 ondansetron See Protocol 12/28/17 12/28/17 ranolazine [Ranexa] 500 mg PO BID 12/28/17 12/28/17 sodium bicarbonate 650 mg PO Q4-6H PRN 12/28/17 12/28/17 Allergies Allergy/AdvReac Type Severity Reaction Status Date / Time shellfish derived Allergy Unknown Unverified 11/12/16 18:14 Review of Systems ROS Unobtainable ROS Unobtainable: unobtainable due to endotracheal tube PMFSH Medical History Medical History CHF (congestive heart failure) (Acute) Chronic kidney disease, stage 4 (severe) (Acute) Muscle weakness (Acute) NSTEMI (non-ST elevated myocardial infarction) (Acute) Surgical History Surgical History H/O heart artery stent (Acute) History of cholecystectomy (Acute) Hx of appendectomy (Acute) Family History Family History Mother CVA (cerebral vascular accident) Father CVA (cerebral vascular accident) Social History Social History Substance History: No History of Abuse and Unable to Obtain Second Hand Smoke Exposure: Yes Smoking Status: Unknown if ever smoked How Often Do You Have a Drink Containing Alcohol: Never (hx alcoholism quit 2001) Recent Travel in [facility] within the Last 8 Weeks: No Recent Out of Country Travel within the Last 8 Weeks: No Immunization History Tetanus Immunization: Unable to Assess Hx Influenza Vaccine This Season: Unable to Assess Exam Narrative Exam Narrative: GENERAL: Senior elderly female, medically frail, thin, almost cachectic, intubated, unresponsive, no spontaneous activity on arrival. Patient being managed by bag valve mask at time of arrival. Initial blood pressure 106 systolic. SKIN: Thin, poor turgor, warm/dry. HEAD: Atraumatic. Normocephalic. 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 No scleral icterus. No injection or drainage. ENT: Endotracheal tube present atraumatic, no facial edema or contusion is assuming no nasal bleeding or discharge. Mucous membranes pink and moist. NECK: Trachea midline. No JVD. CARDIOVASCULAR: Regular rate and rhythm. Paced rhythm apparent on hospital monitor RESPIRATORY: Coarse bilateral posterior breath sounds, some bronchitic, few wheezes, posterior bilateral crackles, mild to moderate, breath sounds equal bilaterally with fairly good respiratory exchange on ventilatory support. GASTROINTESTINAL: Abdomen soft, nondistended. MUSCULOSKELETAL: No obvious deformities. No clubbing. No cyanosis. No edema. NEUROLOGICAL: Comatose, no spontaneous extremity movements, making some efforts at swallowing breathing movements. PSYCHIATRIC: Appropriate mood and affect; insight and judgment normal. Course Initial Documented Vital Signs Pulse Rate 49 L 12/26/17 05:58 Pulse Oximetry 98 12/26/17 05:58 Last Documented Vital Signs Temperature 98.8 F 12/29/17 19:00 Pulse Rate 50 L 12/29/17 19:00 Respiratory Rate 35 H 12/29/17 19:00 Blood Pressure 67/43 L 12/29/17 19:00 Pulse Oximetry 84 L 12/29/17 19:00 Critical Care Time Critical Care Time: Yes Total Critical Care Time: 30 Attestation: 30 minutes of critical care time was provided in assessing this patient with acute respiratory arrest, hypoxemia, requiring intubation, and stabilization and resuscitation for patient's hypoxemia, hypotension, comatose status, with history of seizure, with significant pre-existing multiple comorbidities, including COPD, heart failure, pacemaker, severe kidney disease, each of which were at risk for imminent deterioration or complicating patient's acute condition. No billable procedures were performed during this patient's encounter Medical Decision Making MDM Narrative Medical decision making narrative: This patient has unclear episode, but which was apparently an acute episode of dyspnea, followed by cardiorespiratory collapse, and seizure activity, all of which occurred at patient's retirement facility. EMS resuscitated patient, performed endotracheal intubation, and transported patient with manual ventilatory support, and hypotension in route, but which had rapidly begun to resolve on arrival in the emergency department, with a systolic blood pressure above 100, and with patient subsequently regaining some level of consciousness, making spontaneous movements, but attempting to extubate herself, but not appropriately responding to commands. Chest x-ray appears stable in comparison to earlier evaluation from November 29 , and blood gas is fairly stable, but does show a moderate mixed metabolic and respiratory acidosis, but with fairly poor oxygenation with PO2 of 180 on 100% oxygen, but no hypercapnia. The cause of patient's seizure is not clear, but is probably hypoxic, but CVA or other intracranial pathology still needs to be ruled out. Patient is stable at time of transfer of care at shift change by myself, and final disposition and arrangements for intensive care placement will be made by oncoming physician, Dr. Dixon. Medical Screen Exam Complete: Yes Emergency Medical Condition: Yes Differential Diagnosis Differential Diagnosis: Respiratory arrest, myocardial infarction, stroke, dehydration, aspiration Lab Data Result diagrams: 12/29/17 10:00 12/29/17 14:15 Lab Results 12/26/17 12/26/17 12/26/17 Range/Units 06:37 06:40 06:40 WBC 6.5 (4.0-11.0) th/mm3 RBC 2.79 L (4.00-5.30) mil/mm3 Hgb 9.0 L (11.6-15.3) gm/dL Hct 27.3 L (35.0-46.0) % MCV 97.8 (80.0-100.0) fL MCH 32.3 (27.0-34.0) pg MCHC 33.0 (32.0-36.0) % RDW 17.3 H (11.6-17.2) % Plt Count 156 (150-450) th/mm3 MPV 8.8 (7.0-11.0) fL Prelim Diff (Auto) Neut % (Auto) 87.1 H (16.0-70.0) % Lymph % (Auto) 6.1 L (9.0-44.0) % Carbon % (Auto) 6.2 (0.0-8.0) % Eos % (Auto) 0.3 (0.0-4.0) % Baso % (Auto) 0.3 (0.0-2.0) % Neut # (Auto) 5.7 (1.8-7.7) th/mm3 Lymph # (Auto) 0.4 L (1.0-4.8) th/mm3 Carbon # (Auto) 0.4 (0.0-0.9) th/mm3 Eos # (Auto) 0.0 (0.0-0.4) th/mm3 Baso # (Auto) 0.0 (0.0-0.2) th/mm3 WBC Differential . Diff Scan Differential Comment Auto diff final PT (9.8-11.6) sec INR Ratio APTT (24.3-30.1) sec D-Dimer Quant (PE/DVT) 3.93 H (0.00-0.50) mg/L FEU Puncture Site Right radial Patient Temperature 98.6 O2 Saturation 97 (90-100) % ABG pH 7.23 L* (7.380-7.420) ABG pCO2 36 L (38-42) mmHg ABG pO2 180 H (61-120) mmHg ABG HCO3 14 L* (22-26) mmol/L ABG O2 Content 14.0 (12.0-20.0) Vol % ABG Base Excess -11.8 L (-2-2) mmol/L ABG Methemoglobin 1.0 (0-2) % Palmer Test Present Hemoglobin 10.0 L (12.0-16.0) G/DL Carboxyhemoglobin 1.1 (0-4) % O2 Delivery Device Ventilator Vent Setting Prvc/ac 12 vt 500 Inspired O2 100 % Critical Value Yes Sodium (136-145) meq/L Potassium (3.5-5.1) meq/L Chloride (98-107) meq/L Carbon Dioxide (21.0-32.0) meq/L Anion Gap (5-15) meq/L BUN (7-18) mg/dL Creatinine (0.50-1.00) mg/dL Estimated GFR (>89) mL/min POC Glucose (68-110) mg/dl Random Glucose (74-106) mg/dL Lactic Acid (0.4-2.0) mmol/L Calcium (8.5-10.1) mg/dL Prot Corrected Calcium (8.5-10.1) mg/dL Magnesium (1.5-2.5) mg/dL Total Bilirubin (0.2-1.0) mg/dL AST (15-37) U/L ALT (10-53) U/L Alkaline Phosphatase (45-117) U/L Total Creatine Kinase (26-192) U/L Troponin I (0.02-0.05) ng/mL B-Natriuretic Peptide (0-100) pg/mL Total Protein (6.4-8.2) g/dL Albumin (3.4-5.0) g/dL Urine Color (Yellw/Straw) Urine Clarity (Clear) Urine pH (5.0-8.5) Ur Specific [place] (1.002-1.035) Urine Protein (Neg-Trace) mg/dL Urine Glucose (UA) (Negative) mg/dL Urine Ketones (Negative) mg/dL Urine Occult Blood (Negative) Urine Nitrate (Negative) Urine Bilirubin (Negative) Urine Urobilinogen (Less than 2) mg/dL Ur Leukocyte Esterase (Negative) Urine RBC (0-3) /hpf Urine WBC (0-5) /hpf Urine WBC Clumps (None) Urine Bacteria (None) /hpf Micro UA Comment Ur Microscopic Review Urine Culture Comments Nasal Screen MRSA (PCR) (Negative) Urine Opiates Screen (Neg) Ur Barbiturates Screen (Neg) Ur Amphetamines Screen (Neg) U Benzodiazepines Scrn (Neg) Urine Cocaine Screen (Neg) U Cannabinoids Screen (Neg) Blood Type Blood Type Recheck Antibody Screen MTS Gel Crossmatch Bld Prod Order Comment 12/26/17 12/26/17 12/26/17 Range/Units 06:40 08:37 10:20 WBC (4.0-11.0) th/mm3 RBC (4.00-5.30) mil/mm3 Hgb (11.6-15.3) gm/dL Hct (35.0-46.0) % MCV (80.0-100.0) fL MCH (27.0-34.0) pg MCHC (32.0-36.0) % RDW (11.6-17.2) % Plt Count (150-450) th/mm3 MPV (7.0-11.0) fL Prelim Diff (Auto) Neut % (Auto) (16.0-70.0) % Lymph % (Auto) (9.0-44.0) % Carbon % (Auto) (0.0-8.0) % Eos % (Auto) (0.0-4.0) % Baso % (Auto) (0.0-2.0) % Neut # (Auto) (1.8-7.7) th/mm3 Lymph # (Auto) (1.0-4.8) th/mm3 Carbon # (Auto) (0.0-0.9) th/mm3 Eos # (Auto) (0.0-0.4) th/mm3 Baso # (Auto) (0.0-0.2) th/mm3 WBC Differential Diff Scan Differential Comment PT (9.8-11.6) sec INR Ratio APTT (24.3-30.1) sec D-Dimer Quant (PE/DVT) (0.00-0.50) mg/L FEU Puncture Site Patient Temperature O2 Saturation (90-100) % ABG pH (7.380-7.420) ABG pCO2 (38-42) mmHg ABG pO2 (61-120) mmHg ABG HCO3 (22-26) mmol/L ABG O2 Content (12.0-20.0) Vol % ABG Base Excess (-2-2) mmol/L ABG Methemoglobin (0-2) % Palmer Test Hemoglobin (12.0-16.0) G/DL Carboxyhemoglobin (0-4) % O2 Delivery Device Vent Setting Inspired O2 % Critical Value Sodium 132 L (136-145) meq/L Potassium 4.0 (3.5-5.1) meq/L Chloride 101 (98-107) meq/L Carbon Dioxide 15.5 L (21.0-32.0) meq/L Anion Gap 16 H (5-15) meq/L BUN 80 H (7-18) mg/dL Creatinine 4.05 H (0.50-1.00) mg/dL Estimated GFR 11 L (>89) mL/min POC Glucose (68-110) mg/dl Random Glucose 117 H (74-106) mg/dL Lactic Acid 0.7 0.5 (0.4-2.0) mmol/L Calcium 8.7 (8.5-10.1) mg/dL Prot Corrected Calcium (8.5-10.1) mg/dL Magnesium (1.5-2.5) mg/dL Total Bilirubin 0.6 (0.2-1.0) mg/dL AST 20 (15-37) U/L ALT 11 (10-53) U/L Alkaline Phosphatase 73 (45-117) U/L Total Creatine Kinase (26-192) U/L Troponin I 0.08 H (0.02-0.05) ng/mL B-Natriuretic Peptide (0-100) pg/mL Total Protein 5.2 L (6.4-8.2) g/dL Albumin 2.6 L (3.4-5.0) g/dL Urine Color (Yellw/Straw) Urine Clarity (Clear) Urine pH (5.0-8.5) Ur Specific [place] (1.002-1.035) Urine Protein (Neg-Trace) mg/dL Urine Glucose (UA) (Negative) mg/dL Urine Ketones (Negative) mg/dL Urine Occult Blood (Negative) Urine Nitrate (Negative) Urine Bilirubin (Negative) Urine Urobilinogen (Less than 2) mg/dL Ur Leukocyte Esterase (Negative) Urine RBC (0-3) /hpf Urine WBC (0-5) /hpf Urine WBC Clumps (None) Urine Bacteria (None) /hpf Micro UA Comment Ur Microscopic Review Urine Culture Comments Nasal Screen MRSA (PCR) (Negative) Urine Opiates Screen (Neg) Ur Barbiturates Screen (Neg) Ur Amphetamines Screen (Neg) U Benzodiazepines Scrn (Neg) Urine Cocaine Screen (Neg) U Cannabinoids Screen (Neg) Blood Type Blood Type Recheck Antibody Screen MTS Gel Crossmatch Bld Prod Order Comment 12/26/17 12/26/17 12/26/17 Range/Units 11:15 11:15 11:15 WBC (4.0-11.0) th/mm3 RBC (4.00-5.30) mil/mm3 Hgb (11.6-15.3) gm/dL Hct (35.0-46.0) % MCV (80.0-100.0) fL MCH (27.0-34.0) pg MCHC (32.0-36.0) % RDW (11.6-17.2) % Plt Count (150-450) th/mm3 MPV (7.0-11.0) fL Prelim Diff (Auto) Neut % (Auto) (16.0-70.0) % Lymph % (Auto) (9.0-44.0) % Carbon % (Auto) (0.0-8.0) % Eos % (Auto) (0.0-4.0) % Baso % (Auto) (0.0-2.0) % Neut # (Auto) (1.8-7.7) th/mm3 Lymph # (Auto) (1.0-4.8) th/mm3 Carbon # (Auto) (0.0-0.9) th/mm3 Eos # (Auto) (0.0-0.4) th/mm3 Baso # (Auto) (0.0-0.2) th/mm3 WBC Differential Diff Scan Differential Comment PT (9.8-11.6) sec INR Ratio APTT (24.3-30.1) sec D-Dimer Quant (PE/DVT) (0.00-0.50) mg/L FEU Puncture Site Patient Temperature O2 Saturation (90-100) % ABG pH (7.380-7.420) ABG pCO2 (38-42) mmHg ABG pO2 (61-120) mmHg ABG HCO3 (22-26) mmol/L ABG O2 Content (12.0-20.0) Vol % ABG Base Excess (-2-2) mmol/L ABG Methemoglobin (0-2) % Palmer Test Hemoglobin (12.0-16.0) G/DL Carboxyhemoglobin (0-4) % O2 Delivery Device Vent Setting Inspired O2 % Critical Value Sodium (136-145) meq/L Potassium (3.5-5.1) meq/L Chloride (98-107) meq/L Carbon Dioxide (21.0-32.0) meq/L Anion Gap (5-15) meq/L BUN (7-18) mg/dL Creatinine (0.50-1.00) mg/dL Estimated GFR (>89) mL/min POC Glucose (68-110) mg/dl Random Glucose (74-106) mg/dL Lactic Acid (0.4-2.0) mmol/L Calcium (8.5-10.1) mg/dL Prot Corrected Calcium (8.5-10.1) mg/dL Magnesium (1.5-2.5) mg/dL Total Bilirubin (0.2-1.0) mg/dL AST (15-37) U/L ALT (10-53) U/L Alkaline Phosphatase (45-117) U/L Total Creatine Kinase (26-192) U/L Troponin I (0.02-0.05) ng/mL B-Natriuretic Peptide (0-100) pg/mL Total Protein (6.4-8.2) g/dL Albumin (3.4-5.0) g/dL Urine Color Yellow (Yellw/Straw) Urine Clarity Hazy H (Clear) Urine pH 5.0 (5.0-8.5) Ur Specific [place] 1.013 (1.002-1.035) Urine Protein 30 H (Neg-Trace) mg/dL Urine Glucose (UA) Negative (Negative) mg/dL Urine Ketones Negative (Negative) mg/dL Urine Occult Blood Negative (Negative) Urine Nitrate Negative (Negative) Urine Bilirubin Negative (Negative) Urine Urobilinogen Less than 2 (Less than 2) mg/dL Ur Leukocyte Esterase Small H (Negative) Urine RBC 1 (0-3) /hpf Urine WBC 12 H (0-5) /hpf Urine WBC Clumps Moderate H (None) Urine Bacteria Moderate H (None) /hpf Micro UA Comment Cath-culture ind Ur Microscopic Review Not Reportable Urine Culture Comments Cath-cult indicated Nasal Screen MRSA (PCR) Mrsa detected (Negative) Urine Opiates Screen Pos H (Neg) Ur Barbiturates Screen Neg (Neg) Ur Amphetamines Screen Neg (Neg) U Benzodiazepines Scrn Pos H (Neg) Urine Cocaine Screen Neg (Neg) U Cannabinoids Screen Neg (Neg) Blood Type Blood Type Recheck Antibody Screen MTS Gel Crossmatch Bld Prod Order Comment 12/26/17 12/26/17 12/26/17 Range/Units 11:20 11:20 12:19 WBC (4.0-11.0) th/mm3 RBC (4.00-5.30) mil/mm3 Hgb (11.6-15.3) gm/dL Hct (35.0-46.0) % MCV (80.0-100.0) fL MCH (27.0-34.0) pg MCHC (32.0-36.0) % RDW (11.6-17.2) % Plt Count (150-450) th/mm3 MPV (7.0-11.0) fL Prelim Diff (Auto) Neut % (Auto) (16.0-70.0) % Lymph % (Auto) (9.0-44.0) % Carbon % (Auto) (0.0-8.0) % Eos % (Auto) (0.0-4.0) % Baso % (Auto) (0.0-2.0) % Neut # (Auto) (1.8-7.7) th/mm3 Lymph # (Auto) (1.0-4.8) th/mm3 Carbon # (Auto) (0.0-0.9) th/mm3 Eos # (Auto) (0.0-0.4) th/mm3 Baso # (Auto) (0.0-0.2) th/mm3 WBC Differential Diff Scan Differential Comment PT (9.8-11.6) sec INR Ratio APTT (24.3-30.1) sec D-Dimer Quant (PE/DVT) (0.00-0.50) mg/L FEU Puncture Site Patient Temperature O2 Saturation (90-100) % ABG pH (7.380-7.420) ABG pCO2 (38-42) mmHg ABG pO2 (61-120) mmHg ABG HCO3 (22-26) mmol/L ABG O2 Content (12.0-20.0) Vol % ABG Base Excess (-2-2) mmol/L ABG Methemoglobin (0-2) % Palmer Test Hemoglobin (12.0-16.0) G/DL Carboxyhemoglobin (0-4) % O2 Delivery Device Vent Setting Inspired O2 % Critical Value Sodium (136-145) meq/L Potassium (3.5-5.1) meq/L Chloride (98-107) meq/L Carbon Dioxide (21.0-32.0) meq/L Anion Gap (5-15) meq/L BUN (7-18) mg/dL Creatinine (0.50-1.00) mg/dL Estimated GFR (>89) mL/min POC Glucose 67 L (68-110) mg/dl Random Glucose (74-106) mg/dL Lactic Acid (0.4-2.0) mmol/L Calcium (8.5-10.1) mg/dL Prot Corrected Calcium (8.5-10.1) mg/dL Magnesium (1.5-2.5) mg/dL Total Bilirubin (0.2-1.0) mg/dL AST (15-37) U/L ALT (10-53) U/L Alkaline Phosphatase (45-117) U/L Total Creatine Kinase 41 (26-192) U/L Troponin I 0.26 H D (0.02-0.05) ng/mL B-Natriuretic Peptide Greater than 5000 H (0-100) pg/mL Total Protein (6.4-8.2) g/dL Albumin (3.4-5.0) g/dL Urine Color (Yellw/Straw) Urine Clarity (Clear) Urine pH (5.0-8.5) Ur Specific [place] (1.002-1.035) Urine Protein (Neg-Trace) mg/dL Urine Glucose (UA) (Negative) mg/dL Urine Ketones (Negative) mg/dL Urine Occult Blood (Negative) Urine Nitrate (Negative) Urine Bilirubin (Negative) Urine Urobilinogen (Less than 2) mg/dL Ur Leukocyte Esterase (Negative) Urine RBC (0-3) /hpf Urine WBC (0-5) /hpf Urine WBC Clumps (None) Urine Bacteria (None) /hpf Micro UA Comment Ur Microscopic Review Urine Culture Comments Nasal Screen MRSA (PCR) (Negative) Urine Opiates Screen (Neg) Ur Barbiturates Screen (Neg) Ur Amphetamines Screen (Neg) U Benzodiazepines Scrn (Neg) Urine Cocaine Screen (Neg) U Cannabinoids Screen (Neg) Blood Type Blood Type Recheck Antibody Screen MTS Gel Crossmatch Bld Prod Order Comment 09/12/26/17 12/26/17 Range/Units 13:14 13:16 15:36 WBC (4.0-11.0) th/mm3 RBC (4.00-5.30) mil/mm3 Hgb (11.6-15.3) gm/dL Hct (35.0-46.0) % MCV (80.0-100.0) fL MCH (27.0-34.0) pg MCHC (32.0-36.0) % RDW (11.6-17.2) % Plt Count (150-450) th/mm3 MPV (7.0-11.0) fL Prelim Diff (Auto) Neut % (Auto) (16.0-70.0) % Lymph % (Auto) (9.0-44.0) % Carbon % (Auto) (0.0-8.0) % Eos % (Auto) (0.0-4.0) % Baso % (Auto) (0.0-2.0) % Neut # (Auto) (1.8-7.7) th/mm3 Lymph # (Auto) (1.0-4.8) th/mm3 Carbon # (Auto) (0.0-0.9) th/mm3 Eos # (Auto) (0.0-0.4) th/mm3 Baso # (Auto) (0.0-0.2) th/mm3 WBC Differential Diff Scan Differential Comment PT (9.8-11.6) sec INR Ratio APTT (24.3-30.1) sec D-Dimer Quant (PE/DVT) (0.00-0.50) mg/L FEU Puncture Site Patient Temperature O2 Saturation (90-100) % ABG pH (7.380-7.420) ABG pCO2 (38-42) mmHg ABG pO2 (61-120) mmHg ABG HCO3 (22-26) mmol/L ABG O2 Content (12.0-20.0) Vol % ABG Base Excess (-2-2) mmol/L ABG Methemoglobin (0-2) % Palmer Test Hemoglobin (12.0-16.0) G/DL Carboxyhemoglobin (0-4) % O2 Delivery Device Vent Setting Inspired O2 % Critical Value Sodium (136-145) meq/L Potassium (3.5-5.1) meq/L Chloride (98-107) meq/L Carbon Dioxide (21.0-32.0) meq/L Anion Gap (5-15) meq/L BUN (7-18) mg/dL Creatinine (0.50-1.00) mg/dL Estimated GFR (>89) mL/min POC Glucose 67 L 73 74 (68-110) mg/dl Random Glucose (74-106) mg/dL Lactic Acid (0.4-2.0) mmol/L Calcium (8.5-10.1) mg/dL Prot Corrected Calcium (8.5-10.1) mg/dL Magnesium (1.5-2.5) mg/dL Total Bilirubin (0.2-1.0) mg/dL AST (15-37) U/L ALT (10-53) U/L Alkaline Phosphatase (45-117) U/L Total Creatine Kinase (26-192) U/L Troponin I (0.02-0.05) ng/mL B-Natriuretic Peptide (0-100) pg/mL Total Protein (6.4-8.2) g/dL Albumin (3.4-5.0) g/dL Urine Color (Yellw/Straw) Urine Clarity (Clear) Urine pH (5.0-8.5) Ur Specific [place] (1.002-1.035) Urine Protein (Neg-Trace) mg/dL Urine Glucose (UA) (Negative) mg/dL Urine Ketones (Negative) mg/dL Urine Occult Blood (Negative) Urine Nitrate (Negative) Urine Bilirubin (Negative) Urine Urobilinogen (Less than 2) mg/dL Ur Leukocyte Esterase (Negative) Urine RBC (0-3) /hpf Urine WBC (0-5) /hpf Urine WBC Clumps (None) Urine Bacteria (None) /hpf Micro UA Comment Ur Microscopic Review Urine Culture Comments Nasal Screen MRSA (PCR) (Negative) Urine Opiates Screen (Neg) Ur Barbiturates Screen (Neg) Ur Amphetamines Screen (Neg) U Benzodiazepines Scrn (Neg) Urine Cocaine Screen (Neg) U Cannabinoids Screen (Neg) Blood Type Blood Type Recheck Antibody Screen MTS Gel Crossmatch Bld Prod Order Comment 12/26/17 12/27/17 12/27/17 Range/Units 21:24 00:38 04:30 WBC 3.7 L (4.0-11.0) th/mm3 RBC 2.18 L (4.00-5.30) mil/mm3 Hgb 7.2 L (11.6-15.3) gm/dL Hct 21.2 L (35.0-46.0) % MCV 97.2 (80.0-100.0) fL MCH 32.9 (27.0-34.0) pg MCHC 33.8 (32.0-36.0) % RDW 17.1 (11.6-17.2) % Plt Count 93 L D (150-450) th/mm3 MPV 8.6 (7.0-11.0) fL Prelim Diff (Auto) Slide review pending Neut % (Auto) 94.7 H (16.0-70.0) % Lymph % (Auto) 4.0 L (9.0-44.0) % Carbon % (Auto) 1.0 (0.0-8.0) % Eos % (Auto) 0.2 (0.0-4.0) % Baso % (Auto) 0.1 (0.0-2.0) % Neut # (Auto) 3.5 (1.8-7.7) th/mm3 Lymph # (Auto) 0.1 L (1.0-4.8) th/mm3 Carbon # (Auto) 0.0 (0.0-0.9) th/mm3 Eos # (Auto) 0.0 (0.0-0.4) th/mm3 Baso # (Auto) 0.0 (0.0-0.2) th/mm3 WBC Differential . Diff Scan Auto diff confirmed Differential Comment . PT (9.8-11.6) sec INR Ratio APTT (24.3-30.1) sec D-Dimer Quant (PE/DVT) (0.00-0.50) mg/L FEU Puncture Site Patient Temperature O2 Saturation (90-100) % ABG pH (7.380-7.420) ABG pCO2 (38-42) mmHg ABG pO2 (61-120) mmHg ABG HCO3 (22-26) mmol/L ABG O2 Content (12.0-20.0) Vol % ABG Base Excess (-2-2) mmol/L ABG Methemoglobin (0-2) % Palmer Test Hemoglobin (12.0-16.0) G/DL Carboxyhemoglobin (0-4) % O2 Delivery Device Vent Setting Inspired O2 % Critical Value Sodium (136-145) meq/L Potassium (3.5-5.1) meq/L Chloride (98-107) meq/L Carbon Dioxide (21.0-32.0) meq/L Anion Gap (5-15) meq/L BUN (7-18) mg/dL Creatinine (0.50-1.00) mg/dL Estimated GFR (>89) mL/min POC Glucose 86 (68-110) mg/dl Random Glucose (74-106) mg/dL Lactic Acid (0.4-2.0) mmol/L Calcium (8.5-10.1) mg/dL Prot Corrected Calcium (8.5-10.1) mg/dL Magnesium (1.5-2.5) mg/dL Total Bilirubin (0.2-1.0) mg/dL AST (15-37) U/L ALT (10-53) U/L Alkaline Phosphatase (45-117) U/L Total Creatine Kinase 19 L (26-192) U/L Troponin I 0.27 H (0.02-0.05) ng/mL B-Natriuretic Peptide (0-100) pg/mL Total Protein (6.4-8.2) g/dL Albumin (3.4-5.0) g/dL Urine Color (Yellw/Straw) Urine Clarity (Clear) Urine pH (5.0-8.5) Ur Specific [place] (1.002-1.035) Urine Protein (Neg-Trace) mg/dL Urine Glucose (UA) (Negative) mg/dL Urine Ketones (Negative) mg/dL Urine Occult Blood (Negative) Urine Nitrate (Negative) Urine Bilirubin (Negative) Urine Urobilinogen (Less than 2) mg/dL Ur Leukocyte Esterase (Negative) Urine RBC (0-3) /hpf Urine WBC (0-5) /hpf Urine WBC Clumps (None) Urine Bacteria (None) /hpf Micro UA Comment Ur Microscopic Review Urine Culture Comments Nasal Screen MRSA (PCR) (Negative) Urine Opiates Screen (Neg) Ur Barbiturates Screen (Neg) Ur Amphetamines Screen (Neg) U Benzodiazepines Scrn (Neg) Urine Cocaine Screen (Neg) U Cannabinoids Screen (Neg) Blood Type Blood Type Recheck Antibody Screen MTS Gel Crossmatch Bld Prod Order Comment 12/27/17 12/27/17 12/27/17 Range/Units 04:30 09:06 13:14 WBC (4.0-11.0) th/mm3 RBC (4.00-5.30) mil/mm3 Hgb (11.6-15.3) gm/dL Hct (35.0-46.0) % MCV (80.0-100.0) fL MCH (27.0-34.0) pg MCHC (32.0-36.0) % RDW (11.6-17.2) % Plt Count (150-450) th/mm3 MPV (7.0-11.0) fL Prelim Diff (Auto) Neut % (Auto) (16.0-70.0) % Lymph % (Auto) (9.0-44.0) % Carbon % (Auto) (0.0-8.0) % Eos % (Auto) (0.0-4.0) % Baso % (Auto) (0.0-2.0) % Neut # (Auto) (1.8-7.7) th/mm3 Lymph # (Auto) (1.0-4.8) th/mm3 Carbon # (Auto) (0.0-0.9) th/mm3 Eos # (Auto) (0.0-0.4) th/mm3 Baso # (Auto) (0.0-0.2) th/mm3 WBC Differential Diff Scan Differential Comment PT (9.8-11.6) sec INR Ratio APTT (24.3-30.1) sec D-Dimer Quant (PE/DVT) (0.00-0.50) mg/L FEU Puncture Site Patient Temperature O2 Saturation (90-100) % ABG pH (7.380-7.420) ABG pCO2 (38-42) mmHg ABG pO2 (61-120) mmHg ABG HCO3 (22-26) mmol/L ABG O2 Content (12.0-20.0) Vol % ABG Base Excess (-2-2) mmol/L ABG Methemoglobin (0-2) % [place] Test Hemoglobin (12.0-16.0) G/DL Carboxyhemoglobin (0-4) % O2 Delivery Device Vent Setting Inspired O2 % Critical Value Sodium 137 (136-145) meq/L Potassium 3.7 (3.5-5.1) meq/L Chloride 101 (98-107) meq/L Carbon Dioxide 21.2 (21.0-32.0) meq/L Anion Gap 15 (5-15) meq/L BUN 73 H (7-18) mg/dL Creatinine 3.08 H (0.50-1.00) mg/dL Estimated GFR 15 L (>89) mL/min POC Glucose 86 98 (68-110) mg/dl Random Glucose 70 L (74-106) mg/dL Lactic Acid (0.4-2.0) mmol/L Calcium 7.1 L* D (8.5-10.1) mg/dL Prot Corrected Calcium 8.5 (8.5-10.1) mg/dL Magnesium (1.5-2.5) mg/dL Total Bilirubin 0.5 (0.2-1.0) mg/dL AST 15 (15-37) U/L ALT 10 (10-53) U/L Alkaline Phosphatase 58 (45-117) U/L Total Creatine Kinase (26-192) U/L Troponin I (0.02-0.05) ng/mL B-Natriuretic Peptide (0-100) pg/mL Total Protein 4.5 L D (6.4-8.2) g/dL Albumin 2.1 L (3.4-5.0) g/dL Urine Color (Yellw/Straw) Urine Clarity (Clear) Urine pH (5.0-8.5) Ur Specific [place] (1.002-1.035) Urine Protein (Neg-Trace) mg/dL Urine Glucose (UA) (Negative) mg/dL Urine Ketones (Negative) mg/dL Urine Occult Blood (Negative) Urine Nitrate (Negative) Urine Bilirubin (Negative) Urine Urobilinogen (Less than 2) mg/dL Ur Leukocyte Esterase (Negative) Urine RBC (0-3) /hpf Urine WBC (0-5) /hpf Urine WBC Clumps (None) Urine Bacteria (None) /hpf Micro UA Comment Ur Microscopic Review Urine Culture Comments Nasal Screen MRSA (PCR) (Negative) Urine Opiates Screen (Neg) Ur Barbiturates Screen (Neg) Ur Amphetamines Screen (Neg) U Benzodiazepines Scrn (Neg) Urine Cocaine Screen (Neg) U Cannabinoids Screen (Neg) Blood Type Blood Type Recheck Antibody Screen MTS Gel Crossmatch Bld Prod Order Comment 12/27/17 12/27/17 12/27/17 Range/Units 15:55 15:55 15:55 WBC 6.7 D (4.0-11.0) th/mm3 RBC 2.45 L (4.00-5.30) mil/mm3 Hgb 8.1 L (11.6-15.3) gm/dL Hct 23.7 L (35.0-46.0) % MCV 96.8 (80.0-100.0) fL MCH 32.9 (27.0-34.0) pg MCHC 34.0 (32.0-36.0) % RDW 17.4 H (11.6-17.2) % Plt Count 136 L D (150-450) th/mm3 MPV 9.5 (7.0-11.0) fL Prelim Diff (Auto) Neut % (Auto) 91.1 H (16.0-70.0) % Lymph % (Auto) 7.3 L (9.0-44.0) % Carbon % (Auto) 1.5 (0.0-8.0) % Eos % (Auto) 0.0 (0.0-4.0) % Baso % (Auto) 0.1 (0.0-2.0) % Neut # (Auto) 6.1 (1.8-7.7) th/mm3 Lymph # (Auto) 0.5 L (1.0-4.8) th/mm3 Carbon # (Auto) 0.1 (0.0-0.9) th/mm3 Eos # (Auto) 0.0 (0.0-0.4) th/mm3 Baso # (Auto) 0.0 (0.0-0.2) th/mm3 WBC Differential . Diff Scan Differential Comment Auto diff final PT (9.8-11.6) sec INR Ratio APTT (24.3-30.1) sec D-Dimer Quant (PE/DVT) (0.00-0.50) mg/L FEU Puncture Site Patient Temperature O2 Saturation (90-100) % ABG pH (7.380-7.420) ABG pCO2 (38-42) mmHg ABG pO2 (61-120) mmHg ABG HCO3 (22-26) mmol/L ABG O2 Content (12.0-20.0) Vol % ABG Base Excess (-2-2) mmol/L ABG Methemoglobin (0-2) % Palmer Test Hemoglobin (12.0-16.0) G/DL Carboxyhemoglobin (0-4) % O2 Delivery Device Vent Setting Inspired O2 % Critical Value Sodium (136-145) meq/L Potassium (3.5-5.1) meq/L Chloride (98-107) meq/L Carbon Dioxide (21.0-32.0) meq/L Anion Gap (5-15) meq/L BUN (7-18) mg/dL Creatinine (0.50-1.00) mg/dL Estimated GFR (>89) mL/min POC Glucose (68-110) mg/dl Random Glucose (74-106) mg/dL Lactic Acid (0.4-2.0) mmol/L Calcium (8.5-10.1) mg/dL Prot Corrected Calcium (8.5-10.1) mg/dL Magnesium (1.5-2.5) mg/dL Total Bilirubin (0.2-1.0) mg/dL AST (15-37) U/L ALT (10-53) U/L Alkaline Phosphatase (45-117) U/L Total Creatine Kinase 49 (26-192) U/L Troponin I 0.31 H (0.02-0.05) ng/mL B-Natriuretic Peptide (0-100) pg/mL Total Protein (6.4-8.2) g/dL Albumin (3.4-5.0) g/dL Urine Color (Yellw/Straw) Urine Clarity (Clear) Urine pH (5.0-8.5) Ur Specific [place] (1.002-1.035) Urine Protein (Neg-Trace) mg/dL Urine Glucose (UA) (Negative) mg/dL Urine Ketones (Negative) mg/dL Urine Occult Blood (Negative) Urine Nitrate (Negative) Urine Bilirubin (Negative) Urine Urobilinogen (Less than 2) mg/dL Ur Leukocyte Esterase (Negative) Urine RBC (0-3) /hpf Urine WBC (0-5) /hpf Urine WBC Clumps (None) Urine Bacteria (None) /hpf Micro UA Comment Ur Microscopic Review Urine Culture Comments Nasal Screen MRSA (PCR) (Negative) Urine Opiates Screen (Neg) Ur Barbiturates Screen (Neg) Ur Amphetamines Screen (Neg) U Benzodiazepines Scrn (Neg) Urine Cocaine Screen (Neg) U Cannabinoids Screen (Neg) Blood Type O Positive Blood Type Recheck Not needed Antibody Screen Negative MTS Gel Crossmatch See Detail Bld Prod Order Comment 12/27/17 12/27/17 12/27/17 Range/Units 15:55 18:03 20:02 WBC (4.0-11.0) th/mm3 RBC (4.00-5.30) mil/mm3 Hgb (11.6-15.3) gm/dL Hct (35.0-46.0) % MCV (80.0-100.0) fL MCH (27.0-34.0) pg MCHC (32.0-36.0) % RDW (11.6-17.2) % Plt Count (150-450) th/mm3 MPV (7.0-11.0) fL Prelim Diff (Auto) Neut % (Auto) (16.0-70.0) % Lymph % (Auto) (9.0-44.0) % Carbon % (Auto) (0.0-8.0) % Eos % (Auto) (0.0-4.0) % Baso % (Auto) (0.0-2.0) % Neut # (Auto) (1.8-7.7) th/mm3 Lymph # (Auto) (1.0-4.8) th/mm3 Carbon # (Auto) (0.0-0.9) th/mm3 Eos # (Auto) (0.0-0.4) th/mm3 Baso # (Auto) (0.0-0.2) th/mm3 WBC Differential Diff Scan Differential Comment PT (9.8-11.6) sec INR Ratio APTT (24.3-30.1) sec D-Dimer Quant (PE/DVT) (0.00-0.50) mg/L FEU Puncture Site Art line Patient Temperature 98.6 O2 Saturation 96 (90-100) % ABG pH 7.37 L (7.380-7.420) ABG pCO2 28 L (38-42) mmHg ABG pO2 123 H (61-120) mmHg ABG HCO3 16 L* (22-26) mmol/L ABG O2 Content 9.5 L (12.0-20.0) Vol % ABG Base Excess -8.4 L (-2-2) mmol/L ABG Methemoglobin 2.0 (0-2) % Palmer Test Hemoglobin 6.9 L* (12.0-16.0) G/DL Carboxyhemoglobin 0.9 (0-4) % O2 Delivery Device Ventilator Vent Setting [id number]/ Inspired O2 100 % Critical Value Yes Sodium 134 L (136-145) meq/L Potassium 3.6 (3.5-5.1) meq/L Chloride 97 L (98-107) meq/L Carbon Dioxide 16.7 L (21.0-32.0) meq/L Anion Gap 20 H (5-15) meq/L BUN 71 H (7-18) mg/dL Creatinine 3.00 H (0.50-1.00) mg/dL Estimated GFR 15 L (>89) mL/min POC Glucose 205 H (68-110) mg/dl Random Glucose 180 H D (74-106) mg/dL Lactic Acid (0.4-2.0) mmol/L Calcium 7.3 L* (8.5-10.1) mg/dL Prot Corrected Calcium 8.3 L (8.5-10.1) mg/dL Magnesium (1.5-2.5) mg/dL Total Bilirubin 0.6 (0.2-1.0) mg/dL AST 23 (15-37) U/L ALT 13 (10-53) U/L Alkaline Phosphatase 69 (45-117) U/L Total Creatine Kinase (26-192) U/L Troponin I (0.02-0.05) ng/mL B-Natriuretic Peptide (0-100) pg/mL Total Protein 5.2 L D (6.4-8.2) g/dL Albumin 2.6 L (3.4-5.0) g/dL Urine Color (Yellw/Straw) Urine Clarity (Clear) Urine pH (5.0-8.5) Ur Specific [place] (1.002-1.035) Urine Protein (Neg-Trace) mg/dL Urine Glucose (UA) (Negative) mg/dL Urine Ketones (Negative) mg/dL Urine Occult Blood (Negative) Urine Nitrate (Negative) Urine Bilirubin (Negative) Urine Urobilinogen (Less than 2) mg/dL Ur Leukocyte Esterase (Negative) Urine RBC (0-3) /hpf Urine WBC (0-5) /hpf Urine WBC Clumps (None) Urine Bacteria (None) /hpf Micro UA Comment Ur Microscopic Review Urine Culture Comments Nasal Screen MRSA (PCR) (Negative) Urine Opiates Screen (Neg) Ur Barbiturates Screen (Neg) Ur Amphetamines Screen (Neg) U Benzodiazepines Scrn (Neg) Urine Cocaine Screen (Neg) U Cannabinoids Screen (Neg) Blood Type Blood Type Recheck Antibody Screen MTS Gel Crossmatch Bld Prod Order Comment 12/27/17 12/28/17 12/28/17 Range/Units 21:44 01:56 05:09 WBC 8.4 (4.0-11.0) th/mm3 RBC 2.65 L (4.00-5.30) mil/mm3 Hgb 8.7 L (11.6-15.3) gm/dL Hct 25.5 L (35.0-46.0) % MCV 96.2 (80.0-100.0) fL MCH 32.7 (27.0-34.0) pg MCHC 34.0 (32.0-36.0) % RDW 17.6 H (11.6-17.2) % Plt Count 136 L (150-450) th/mm3 MPV 9.2 (7.0-11.0) fL Prelim Diff (Auto) Neut % (Auto) (16.0-70.0) % Lymph % (Auto) (9.0-44.0) % Carbon % (Auto) (0.0-8.0) % Eos % (Auto) (0.0-4.0) % Baso % (Auto) (0.0-2.0) % Neut # (Auto) (1.8-7.7) th/mm3 Lymph # (Auto) (1.0-4.8) th/mm3 Carbon # (Auto) (0.0-0.9) th/mm3 Eos # (Auto) (0.0-0.4) th/mm3 Baso # (Auto) (0.0-0.2) th/mm3 WBC Differential Diff Scan Differential Comment PT (9.8-11.6) sec INR Ratio APTT (24.3-30.1) sec D-Dimer Quant (PE/DVT) (0.00-0.50) mg/L FEU Puncture Site Patient Temperature O2 Saturation (90-100) % ABG pH (7.380-7.420) ABG pCO2 (38-42) mmHg ABG pO2 (61-120) mmHg ABG HCO3 (22-26) mmol/L ABG O2 Content (12.0-20.0) Vol % ABG Base Excess (-2-2) mmol/L ABG Methemoglobin (0-2) % Palmer Test Hemoglobin (12.0-16.0) G/DL Carboxyhemoglobin (0-4) % O2 Delivery Device Vent Setting Inspired O2 % Critical Value Sodium (136-145) meq/L Potassium (3.5-5.1) meq/L Chloride (98-107) meq/L Carbon Dioxide (21.0-32.0) meq/L Anion Gap (5-15) meq/L BUN (7-18) mg/dL Creatinine (0.50-1.00) mg/dL Estimated GFR (>89) mL/min POC Glucose 213 H 170 H (68-110) mg/dl Random Glucose (74-106) mg/dL Lactic Acid (0.4-2.0) mmol/L Calcium (8.5-10.1) mg/dL Prot Corrected Calcium (8.5-10.1) mg/dL Magnesium (1.5-2.5) mg/dL Total Bilirubin (0.2-1.0) mg/dL AST (15-37) U/L ALT (10-53) U/L Alkaline Phosphatase (45-117) U/L Total Creatine Kinase (26-192) U/L Troponin I (0.02-0.05) ng/mL B-Natriuretic Peptide (0-100) pg/mL Total Protein (6.4-8.2) g/dL Albumin (3.4-5.0) g/dL Urine Color (Yellw/Straw) Urine Clarity (Clear) Urine pH (5.0-8.5) Ur Specific [place] (1.002-1.035) Urine Protein (Neg-Trace) mg/dL Urine Glucose (UA) (Negative) mg/dL Urine Ketones (Negative) mg/dL Urine Occult Blood (Negative) Urine Nitrate (Negative) Urine Bilirubin (Negative) Urine Urobilinogen (Less than 2) mg/dL Ur Leukocyte Esterase (Negative) Urine RBC (0-3) /hpf Urine WBC (0-5) /hpf Urine WBC Clumps (None) Urine Bacteria (None) /hpf Micro UA Comment Ur Microscopic Review Urine Culture Comments Nasal Screen MRSA (PCR) (Negative) Urine Opiates Screen (Neg) Ur Barbiturates Screen (Neg) Ur Amphetamines Screen (Neg) U Benzodiazepines Scrn (Neg) Urine Cocaine Screen (Neg) U Cannabinoids Screen (Neg) Blood Type Blood Type Recheck Antibody Screen MTS Gel Crossmatch Bld Prod Order Comment 12/28/17 12/28/17 12/28/17 Range/Units 05:09 09:23 09:23 WBC (4.0-11.0) th/mm3 RBC (4.00-5.30) mil/mm3 Hgb (11.6-15.3) gm/dL Hct (35.0-46.0) % MCV (80.0-100.0) fL MCH (27.0-34.0) pg MCHC (32.0-36.0) % RDW (11.6-17.2) % Plt Count (150-450) th/mm3 MPV (7.0-11.0) fL Prelim Diff (Auto) Neut % (Auto) (16.0-70.0) % Lymph % (Auto) (9.0-44.0) % Carbon % (Auto) (0.0-8.0) % Eos % (Auto) (0.0-4.0) % Baso % (Auto) (0.0-2.0) % Neut # (Auto) (1.8-7.7) th/mm3 Lymph # (Auto) (1.0-4.8) th/mm3 Carbon # (Auto) (0.0-0.9) th/mm3 Eos # (Auto) (0.0-0.4) th/mm3 Baso # (Auto) (0.0-0.2) th/mm3 WBC Differential Diff Scan Differential Comment PT (9.8-11.6) sec INR Ratio APTT (24.3-30.1) sec D-Dimer Quant (PE/DVT) (0.00-0.50) mg/L FEU Puncture Site Patient Temperature O2 Saturation (90-100) % ABG pH (7.380-7.420) ABG pCO2 (38-42) mmHg ABG pO2 (61-120) mmHg ABG HCO3 (22-26) mmol/L ABG O2 Content (12.0-20.0) Vol % ABG Base Excess (-2-2) mmol/L ABG Methemoglobin (0-2) % Palmer Test Hemoglobin (12.0-16.0) G/DL Carboxyhemoglobin (0-4) % O2 Delivery Device Vent Setting Inspired O2 % Critical Value Sodium 135 L (136-145) meq/L Potassium 3.4 L (3.5-5.1) meq/L Chloride 95 L (98-107) meq/L Carbon Dioxide 21.3 (21.0-32.0) meq/L Anion Gap 19 H (5-15) meq/L BUN 72 H (7-18) mg/dL Creatinine 3.12 H (0.50-1.00) mg/dL Estimated GFR 15 L (>89) mL/min POC Glucose (68-110) mg/dl Random Glucose 138 H (74-106) mg/dL Lactic Acid (0.4-2.0) mmol/L Calcium 7.5 L (8.5-10.1) mg/dL Prot Corrected Calcium (8.5-10.1) mg/dL Magnesium (1.5-2.5) mg/dL Total Bilirubin 0.8 (0.2-1.0) mg/dL AST 83 H (15-37) U/L ALT 14 (10-53) U/L Alkaline Phosphatase 68 (45-117) U/L Total Creatine Kinase (26-192) U/L Troponin I 11.30 H* D (0.02-0.05) ng/mL B-Natriuretic Peptide Greater than 5000 H (0-100) pg/mL Total Protein 5.4 L (6.4-8.2) g/dL Albumin 2.9 L (3.4-5.0) g/dL Urine Color (Yellw/Straw) Urine Clarity (Clear) Urine pH (5.0-8.5) Ur Specific [place] (1.002-1.035) Urine Protein (Neg-Trace) mg/dL Urine Glucose (UA) (Negative) mg/dL Urine Ketones (Negative) mg/dL Urine Occult Blood (Negative) Urine Nitrate (Negative) Urine Bilirubin (Negative) Urine Urobilinogen (Less than 2) mg/dL Ur Leukocyte Esterase (Negative) Urine RBC (0-3) /hpf Urine WBC (0-5) /hpf Urine WBC Clumps (None) Urine Bacteria (None) /hpf Micro UA Comment Ur Microscopic Review Urine Culture Comments Nasal Screen MRSA (PCR) (Negative) Urine Opiates Screen (Neg) Ur Barbiturates Screen (Neg) Ur Amphetamines Screen (Neg) U Benzodiazepines Scrn (Neg) Urine Cocaine Screen (Neg) U Cannabinoids Screen (Neg) Blood Type Blood Type Recheck Antibody Screen MTS Gel Crossmatch Bld Prod Order Comment 12/28/17 12/28/17 12/28/17 Range/Units 15:27 15:27 16:58 WBC 10.3 (4.0-11.0) th/mm3 RBC 2.79 L (4.00-5.30) mil/mm3 Hgb 9.0 L (11.6-15.3) gm/dL Hct 27.1 L (35.0-46.0) % MCV 97.0 (80.0-100.0) fL MCH 32.2 (27.0-34.0) pg MCHC 33.2 (32.0-36.0) % RDW 17.7 H (11.6-17.2) % Plt Count 125 L (150-450) th/mm3 MPV 8.8 (7.0-11.0) fL Prelim Diff (Auto) Neut % (Auto) (16.0-70.0) % Lymph % (Auto) (9.0-44.0) % Carbon % (Auto) (0.0-8.0) % Eos % (Auto) (0.0-4.0) % Baso % (Auto) (0.0-2.0) % Neut # (Auto) (1.8-7.7) th/mm3 Lymph # (Auto) (1.0-4.8) th/mm3 Carbon # (Auto) (0.0-0.9) th/mm3 Eos # (Auto) (0.0-0.4) th/mm3 Baso # (Auto) (0.0-0.2) th/mm3 WBC Differential Diff Scan Differential Comment PT 12.6 H (9.8-11.6) sec INR 1.2 Ratio APTT 40.6 H (24.3-30.1) sec D-Dimer Quant (PE/DVT) (0.00-0.50) mg/L FEU Puncture Site Patient Temperature O2 Saturation (90-100) % ABG pH (7.380-7.420) ABG pCO2 (38-42) mmHg ABG pO2 (61-120) mmHg ABG HCO3 (22-26) mmol/L ABG O2 Content (12.0-20.0) Vol % ABG Base Excess (-2-2) mmol/L ABG Methemoglobin (0-2) % Palmer Test Hemoglobin (12.0-16.0) G/DL Carboxyhemoglobin (0-4) % O2 Delivery Device Vent Setting Inspired O2 % Critical Value Sodium (136-145) meq/L Potassium (3.5-5.1) meq/L Chloride (98-107) meq/L Carbon Dioxide (21.0-32.0) meq/L Anion Gap (5-15) meq/L BUN (7-18) mg/dL Creatinine (0.50-1.00) mg/dL Estimated GFR (>89) mL/min POC Glucose 258 H (68-110) mg/dl Random Glucose (74-106) mg/dL Lactic Acid (0.4-2.0) mmol/L Calcium (8.5-10.1) mg/dL Prot Corrected Calcium (8.5-10.1) mg/dL Magnesium (1.5-2.5) mg/dL Total Bilirubin (0.2-1.0) mg/dL AST (15-37) U/L ALT (10-53) U/L Alkaline Phosphatase (45-117) U/L Total Creatine Kinase (26-192) U/L Troponin I (0.02-0.05) ng/mL B-Natriuretic Peptide (0-100) pg/mL Total Protein (6.4-8.2) g/dL Albumin (3.4-5.0) g/dL Urine Color (Yellw/Straw) Urine Clarity (Clear) Urine pH (5.0-8.5) Ur Specific [place] (1.002-1.035) Urine Protein (Neg-Trace) mg/dL Urine Glucose (UA) (Negative) mg/dL Urine Ketones (Negative) mg/dL Urine Occult Blood (Negative) Urine Nitrate (Negative) Urine Bilirubin (Negative) Urine Urobilinogen (Less than 2) mg/dL Ur Leukocyte Esterase (Negative) Urine RBC (0-3) /hpf Urine WBC (0-5) /hpf Urine WBC Clumps (None) Urine Bacteria (None) /hpf Micro UA Comment Ur Microscopic Review Urine Culture Comments Nasal Screen MRSA (PCR) (Negative) Urine Opiates Screen (Neg) Ur Barbiturates Screen (Neg) Ur Amphetamines Screen (Neg) U Benzodiazepines Scrn (Neg) Urine Cocaine Screen (Neg) U Cannabinoids Screen (Neg) Blood Type Blood Type Recheck Antibody Screen MTS Gel Crossmatch Bld Prod Order Comment 12/28/17 12/28/17 12/28/17 Range/Units 21:13 21:47 23:42 WBC (4.0-11.0) th/mm3 RBC (4.00-5.30) mil/mm3 Hgb (11.6-15.3) gm/dL Hct (35.0-46.0) % MCV (80.0-100.0) fL MCH (27.0-34.0) pg MCHC (32.0-36.0) % RDW (11.6-17.2) % Plt Count (150-450) th/mm3 MPV (7.0-11.0) fL Prelim Diff (Auto) Neut % (Auto) (16.0-70.0) % Lymph % (Auto) (9.0-44.0) % Carbon % (Auto) (0.0-8.0) % Eos % (Auto) (0.0-4.0) % Baso % (Auto) (0.0-2.0) % Neut # (Auto) (1.8-7.7) th/mm3 Lymph # (Auto) (1.0-4.8) th/mm3 Carbon # (Auto) (0.0-0.9) th/mm3 Eos # (Auto) (0.0-0.4) th/mm3 Baso # (Auto) (0.0-0.2) th/mm3 WBC Differential Diff Scan Differential Comment PT (9.8-11.6) sec INR Ratio APTT 147.3 H* D 71.7 H D (24.3-30.1) sec D-Dimer Quant (PE/DVT) (0.00-0.50) mg/L FEU Puncture Site Patient Temperature O2 Saturation (90-100) % ABG pH (7.380-7.420) ABG pCO2 (38-42) mmHg ABG pO2 (61-120) mmHg ABG HCO3 (22-26) mmol/L ABG O2 Content (12.0-20.0) Vol % ABG Base Excess (-2-2) mmol/L ABG Methemoglobin (0-2) % Palmer Test Hemoglobin (12.0-16.0) G/DL Carboxyhemoglobin (0-4) % O2 Delivery Device Vent Setting Inspired O2 % Critical Value Sodium (136-145) meq/L Potassium (3.5-5.1) meq/L Chloride (98-107) meq/L Carbon Dioxide (21.0-32.0) meq/L Anion Gap (5-15) meq/L BUN (7-18) mg/dL Creatinine (0.50-1.00) mg/dL Estimated GFR (>89) mL/min POC Glucose 277 H (68-110) mg/dl Random Glucose (74-106) mg/dL Lactic Acid (0.4-2.0) mmol/L Calcium (8.5-10.1) mg/dL Prot Corrected Calcium (8.5-10.1) mg/dL Magnesium (1.5-2.5) mg/dL Total Bilirubin (0.2-1.0) mg/dL AST (15-37) U/L ALT (10-53) U/L Alkaline Phosphatase (45-117) U/L Total Creatine Kinase (26-192) U/L Troponin I (0.02-0.05) ng/mL B-Natriuretic Peptide (0-100) pg/mL Total Protein (6.4-8.2) g/dL Albumin (3.4-5.0) g/dL Urine Color (Yellw/Straw) Urine Clarity (Clear) Urine pH (5.0-8.5) Ur Specific [place] (1.002-1.035) Urine Protein (Neg-Trace) mg/dL Urine Glucose (UA) (Negative) mg/dL Urine Ketones (Negative) mg/dL Urine Occult Blood (Negative) Urine Nitrate (Negative) Urine Bilirubin (Negative) Urine Urobilinogen (Less than 2) mg/dL Ur Leukocyte Esterase (Negative) Urine RBC (0-3) /hpf Urine WBC (0-5) /hpf Urine WBC Clumps (None) Urine Bacteria (None) /hpf Micro UA Comment Ur Microscopic Review Urine Culture Comments Nasal Screen MRSA (PCR) (Negative) Urine Opiates Screen (Neg) Ur Barbiturates Screen (Neg) Ur Amphetamines Screen (Neg) U Benzodiazepines Scrn (Neg) Urine Cocaine Screen (Neg) U Cannabinoids Screen (Neg) Blood Type Blood Type Recheck Antibody Screen MTS Gel Crossmatch Bld Prod Order Comment 12/29/17 12/29/17 12/29/17 Range/Units 01:48 06:00 08:40 WBC (4.0-11.0) th/mm3 RBC (4.00-5.30) mil/mm3 Hgb (11.6-15.3) gm/dL Hct (35.0-46.0) % MCV (80.0-100.0) fL MCH (27.0-34.0) pg MCHC (32.0-36.0) % RDW (11.6-17.2) % Plt Count (150-450) th/mm3 MPV (7.0-11.0) fL Prelim Diff (Auto) Neut % (Auto) (16.0-70.0) % Lymph % (Auto) (9.0-44.0) % Carbon % (Auto) (0.0-8.0) % Eos % (Auto) (0.0-4.0) % Baso % (Auto) (0.0-2.0) % Neut # (Auto) (1.8-7.7) th/mm3 Lymph # (Auto) (1.0-4.8) th/mm3 Carbon # (Auto) (0.0-0.9) th/mm3 Eos # (Auto) (0.0-0.4) th/mm3 Baso # (Auto) (0.0-0.2) th/mm3 WBC Differential Diff Scan Differential Comment PT (9.8-11.6) sec INR Ratio APTT 86.5 H D (24.3-30.1) sec D-Dimer Quant (PE/DVT) (0.00-0.50) mg/L FEU Puncture Site Patient Temperature O2 Saturation (90-100) % ABG pH (7.380-7.420) ABG pCO2 (38-42) mmHg ABG pO2 (61-120) mmHg ABG HCO3 (22-26) mmol/L ABG O2 Content (12.0-20.0) Vol % ABG Base Excess (-2-2) mmol/L ABG Methemoglobin (0-2) % Palmer Test Hemoglobin (12.0-16.0) G/DL Carboxyhemoglobin (0-4) % O2 Delivery Device Vent Setting Inspired O2 % Critical Value Sodium 127 L (136-145) meq/L Potassium 5.2 H D (3.5-5.1) meq/L Chloride 91 L (98-107) meq/L Carbon Dioxide 13.2 L (21.0-32.0) meq/L Anion Gap 23 H (5-15) meq/L BUN 80 H (7-18) mg/dL Creatinine 3.70 H (0.50-1.00) mg/dL Estimated GFR 12 L (>89) mL/min POC Glucose 191 H (68-110) mg/dl Random Glucose 178 H (74-106) mg/dL Lactic Acid (0.4-2.0) mmol/L Calcium 7.5 L (8.5-10.1) mg/dL Prot Corrected Calcium (8.5-10.1) mg/dL Magnesium 2.0 (1.5-2.5) mg/dL Total Bilirubin 1.9 H (0.2-1.0) mg/dL AST 1562 H (15-37) U/L ALT 490 H (10-53) U/L Alkaline Phosphatase 135 H (45-117) U/L Total Creatine Kinase (26-192) U/L Troponin I (0.02-0.05) ng/mL B-Natriuretic Peptide (0-100) pg/mL Total Protein 5.5 L (6.4-8.2) g/dL Albumin 3.3 L (3.4-5.0) g/dL Urine Color (Yellw/Straw) Urine Clarity (Clear) Urine pH (5.0-8.5) Ur Specific [place] (1.002-1.035) Urine Protein (Neg-Trace) mg/dL Urine Glucose (UA) (Negative) mg/dL Urine Ketones (Negative) mg/dL Urine Occult Blood (Negative) Urine Nitrate (Negative) Urine Bilirubin (Negative) Urine Urobilinogen (Less than 2) mg/dL Ur Leukocyte Esterase (Negative) Urine RBC (0-3) /hpf Urine WBC (0-5) /hpf Urine WBC Clumps (None) Urine Bacteria (None) /hpf Micro UA Comment Ur Microscopic Review Urine Culture Comments Nasal Screen MRSA (PCR) (Negative) Urine Opiates Screen (Neg) Ur Barbiturates Screen (Neg) Ur Amphetamines Screen (Neg) U Benzodiazepines Scrn (Neg) Urine Cocaine Screen (Neg) U Cannabinoids Screen (Neg) Blood Type Blood Type Recheck Antibody Screen MTS Gel Crossmatch Bld Prod Order Comment 12/29/17 12/29/17 12/29/17 Range/Units 09:56 10:00 13:32 WBC 15.8 H D (4.0-11.0) th/mm3 RBC 2.79 L (4.00-5.30) mil/mm3 Hgb 8.8 L (11.6-15.3) gm/dL Hct 27.4 L (35.0-46.0) % MCV 98.2 (80.0-100.0) fL MCH 31.6 (27.0-34.0) pg MCHC 32.2 (32.0-36.0) % RDW 17.7 H (11.6-17.2) % Plt Count 71 L D (150-450) th/mm3 MPV 8.5 (7.0-11.0) fL Prelim Diff (Auto) Neut % (Auto) (16.0-70.0) % Lymph % (Auto) (9.0-44.0) % Carbon % (Auto) (0.0-8.0) % Eos % (Auto) (0.0-4.0) % Baso % (Auto) (0.0-2.0) % Neut # (Auto) (1.8-7.7) th/mm3 Lymph # (Auto) (1.0-4.8) th/mm3 Carbon # (Auto) (0.0-0.9) th/mm3 Eos # (Auto) (0.0-0.4) th/mm3 Baso # (Auto) (0.0-0.2) th/mm3 WBC Differential Diff Scan Differential Comment PT (9.8-11.6) sec INR Ratio APTT (24.3-30.1) sec D-Dimer Quant (PE/DVT) (0.00-0.50) mg/L FEU Puncture Site Patient Temperature O2 Saturation (90-100) % ABG pH (7.380-7.420) ABG pCO2 (38-42) mmHg ABG pO2 (61-120) mmHg ABG HCO3 (22-26) mmol/L ABG O2 Content (12.0-20.0) Vol % ABG Base Excess (-2-2) mmol/L ABG Methemoglobin (0-2) % Palmer Test Hemoglobin (12.0-16.0) G/DL Carboxyhemoglobin (0-4) % O2 Delivery Device Vent Setting Inspired O2 % Critical Value Sodium (136-145) meq/L Potassium (3.5-5.1) meq/L Chloride (98-107) meq/L Carbon Dioxide (21.0-32.0) meq/L Anion Gap (5-15) meq/L BUN (7-18) mg/dL Creatinine (0.50-1.00) mg/dL Estimated GFR (>89) mL/min POC Glucose 147 H 91 (68-110) mg/dl Random Glucose (74-106) mg/dL Lactic Acid (0.4-2.0) mmol/L Calcium (8.5-10.1) mg/dL Prot Corrected Calcium (8.5-10.1) mg/dL Magnesium (1.5-2.5) mg/dL Total Bilirubin (0.2-1.0) mg/dL AST (15-37) U/L ALT (10-53) U/L Alkaline Phosphatase (45-117) U/L Total Creatine Kinase (26-192) U/L Troponin I (0.02-0.05) ng/mL B-Natriuretic Peptide (0-100) pg/mL Total Protein (6.4-8.2) g/dL Albumin (3.4-5.0) g/dL Urine Color (Yellw/Straw) Urine Clarity (Clear) Urine pH (5.0-8.5) Ur Specific [place] (1.002-1.035) Urine Protein (Neg-Trace) mg/dL Urine Glucose (UA) (Negative) mg/dL Urine Ketones (Negative) mg/dL Urine Occult Blood (Negative) Urine Nitrate (Negative) Urine Bilirubin (Negative) Urine Urobilinogen (Less than 2) mg/dL Ur Leukocyte Esterase (Negative) Urine RBC (0-3) /hpf Urine WBC (0-5) /hpf Urine WBC Clumps (None) Urine Bacteria (None) /hpf Micro UA Comment Ur Microscopic Review Urine Culture Comments Nasal Screen MRSA (PCR) (Negative) Urine Opiates Screen (Neg) Ur Barbiturates Screen (Neg) Ur Amphetamines Screen (Neg) U Benzodiazepines Scrn (Neg) Urine Cocaine Screen (Neg) U Cannabinoids Screen (Neg) Blood Type Blood Type Recheck Antibody Screen MTS Gel Crossmatch Bld Prod Order Comment 12/29/17 12/29/17 12/29/17 Range/Units 14:15 14:15 17:37 WBC (4.0-11.0) th/mm3 RBC (4.00-5.30) mil/mm3 Hgb (11.6-15.3) gm/dL Hct (35.0-46.0) % MCV (80.0-100.0) fL MCH (27.0-34.0) pg MCHC (32.0-36.0) % RDW (11.6-17.2) % Plt Count (150-450) th/mm3 MPV (7.0-11.0) fL Prelim Diff (Auto) Neut % (Auto) (16.0-70.0) % Lymph % (Auto) (9.0-44.0) % Carbon % (Auto) (0.0-8.0) % Eos % (Auto) (0.0-4.0) % Baso % (Auto) (0.0-2.0) % Neut # (Auto) (1.8-7.7) th/mm3 Lymph # (Auto) (1.0-4.8) th/mm3 Carbon # (Auto) (0.0-0.9) th/mm3 Eos # (Auto) (0.0-0.4) th/mm3 Baso # (Auto) (0.0-0.2) th/mm3 WBC Differential Diff Scan Differential Comment PT (9.8-11.6) sec INR Ratio APTT 59.1 H D (24.3-30.1) sec D-Dimer Quant (PE/DVT) (0.00-0.50) mg/L FEU Puncture Site Patient Temperature O2 Saturation (90-100) % ABG pH (7.380-7.420) ABG pCO2 (38-42) mmHg ABG pO2 (61-120) mmHg ABG HCO3 (22-26) mmol/L ABG O2 Content (12.0-20.0) Vol % ABG Base Excess (-2-2) mmol/L ABG Methemoglobin (0-2) % [place] Test Hemoglobin (12.0-16.0) G/DL Carboxyhemoglobin (0-4) % O2 Delivery Device Vent Setting Inspired O2 % Critical Value Sodium 129 L (136-145) meq/L Potassium 5.6 H (3.5-5.1) meq/L Chloride 91 L (98-107) meq/L Carbon Dioxide 13.5 L (21.0-32.0) meq/L Anion Gap 25 H (5-15) meq/L BUN 84 H (7-18) mg/dL Creatinine 3.91 H (0.50-1.00) mg/dL Estimated GFR 11 L (>89) mL/min POC Glucose 107 (68-110) mg/dl Random Glucose 78 D (74-106) mg/dL Lactic Acid (0.4-2.0) mmol/L Calcium 7.6 L (8.5-10.1) mg/dL Prot Corrected Calcium (8.5-10.1) mg/dL Magnesium (1.5-2.5) mg/dL Total Bilirubin 2.3 H (0.2-1.0) mg/dL AST 2730 H (15-37) U/L ALT 839 H (10-53) U/L Alkaline Phosphatase 117 (45-117) U/L Total Creatine Kinase (26-192) U/L Troponin I (0.02-0.05) ng/mL B-Natriuretic Peptide (0-100) pg/mL Total Protein 5.6 L (6.4-8.2) g/dL Albumin 3.5 (3.4-5.0) g/dL Urine Color (Yellw/Straw) Urine Clarity (Clear) Urine pH (5.0-8.5) Ur Specific [place] (1.002-1.035) Urine Protein (Neg-Trace) mg/dL Urine Glucose (UA) (Negative) mg/dL Urine Ketones (Negative) mg/dL Urine Occult Blood (Negative) Urine Nitrate (Negative) Urine Bilirubin (Negative) Urine Urobilinogen (Less than 2) mg/dL Ur Leukocyte Esterase (Negative) Urine RBC (0-3) /hpf Urine WBC (0-5) /hpf Urine WBC Clumps (None) Urine Bacteria (None) /hpf Micro UA Comment Ur Microscopic Review Urine Culture Comments Nasal Screen MRSA (PCR) (Negative) Urine Opiates Screen (Neg) Ur Barbiturates Screen (Neg) Ur Amphetamines Screen (Neg) U Benzodiazepines Scrn (Neg) Urine Cocaine Screen (Neg) U Cannabinoids Screen (Neg) Blood Type Blood Type Recheck Antibody Screen MTS Gel Crossmatch Bld Prod Order Comment Imaging Data Radiologist's impression: Abdomen/Pelvis CT 12/26/17 00:00 CONCLUSION: 1. There is a small volume of free fluid in the pelvis. It has a simple appearance on this examination. No specific abnormality is identified to explain the patient's sepsis. 2. Bilateral atrophic kidneys consistent with a history of renal failure. There is no hydronephrosis. 3. Nonacute findings include severe atherosclerotic disease and findings indicative of prior granulomatous infection. Please refer to chest CT report for description of the supradiaphragmatic findings. Head CT 12/26/17 05:57 CONCLUSION: 1. Limited examination of the right middle cranial and cephalad posterior fossa due to beam hardening artifact from the device in the right occipital scalp. 2. Senescent changes without acute intracranial abnormality. . Chest X-Ray 12/26/17 05:58 CONCLUSION: 1. ETT and NGT in good position. 2. Diffuse interstitial edema and perihilar patchy airspace opacities in a pulmonary edema pattern. Chest CT 12/26/17 07:49 CONCLUSION: 1. Diffuse bilateral patchy groundglass airspace disease, most prominently in the left upper lobe. This pattern is most consistent with pulmonary edema. Differential considerations include developing ARDS versus atypical/diffuse infection. 2. Simple appearing bilateral pleural effusions. 3. Stable numerous bilateral solid pulmonary nodules measuring 3 to 6 mm with a single densely calcified granuloma. Optional CT examination may be performed in 6 months (12 months from prior exam) to document stability per 2017 Fleischner criteria. 4. Prominent coronary calcifications. 5. Enlarged main pulmonary artery consistent with some degree of pulmonary artery hypertension. Chest X-Ray 12/27/17 00:00 CONCLUSION: Lungs appear clear. The previously seen edema has largely resolved. Chest X-Ray 12/27/17 00:00 CONCLUSION: 1. ET tube in good position. 2. Cardiomegaly with moderate severity pulmonary edema. Chest X-Ray 12/27/17 00:00 CONCLUSION: 1. Gastric tube side-port is 5 cm above the left hemidiaphragm and needs to be advanced. 2. ET tube tip is 2.2 cm above the natalie. 3. Cardiomegaly and pulmonary edema, stable in severity. Chest X-Ray 12/28/17 06:00 CONCLUSION: Diffuse increased interstitial markings and increased density in the perihilar regions likely from edema. This is unchanged. Chest X-Ray 12/28/17 14:41 CONCLUSION: New left IJ central line in good position with no evidence of pneumothorax. Chest X-Ray 12/29/17 06:00 CONCLUSION: 1. Stable tubes and lines, as above. 2. Worsening pulmonary edema pattern. Discharge Plan Discharge Disposition Patient Disposition: 30 Still Patient Discharge Condition Condition: Stable Discharge Details Date/Time: 12/29/17 19:29 Physicians Team ED Provider: David Dixon Primary Care Provider: Dejon Boggs Attending Provider: Mary Montero Other Providers: Bryan Salazar ; Karmen Loco ; [facility] ; [place] Reyes Discharge Interventions Interventions: ED Discharge Assessment Last Done: 12/26/17 09:56 Status ED Status: Left Department Discharge Information Discharge Date/Time: 12/26/17 08:50
[2017-12-26 07:36] LABS: Albumin 2.6 g/dL (3.4-5.0); Anion Gap 16 meq/L (5-15); Aspartate Aminotransferase 20 U/L (15-37); Blood Urea Nitrogen 80 mg/dL (7-18); Calcium 8.7 mg/dL (8.5-10.1); Carbon Dioxide 15.5 meq/L (21.0-32.0); Chloride 101 meq/L (98-107); Glomerular Filtration Rate 11 mL/min (>89); Glucose,Random 117 mg/dL (74-106); Sodium 132 meq/L (136-145)
[2017-12-26 07:37] LABS: Alanine Aminotransferase 11 U/L (10-53)
[2017-12-26 07:40] LABS: Alkaline Phosphatase 73 U/L (45-117); Total Protein 5.2 g/dL (6.4-8.2); Troponin I 0.08 ng/mL (0.02-0.05)
[2017-12-26] MEDS ORDERED: fentaNYL Citrate Inj 100 MCG/2 ML Ampul IV.PUSH PRN (07:46)
[2017-12-26] MEDS ORDERED: Acetaminophen 325 MG Tablet PO PRN (07:46)
[2017-12-26] MEDS ORDERED: Sod Chloride 0.9% Inj 1,000 ML IV.SIG SCH (07:51)
[2017-12-26] MEDS ORDERED: Vancomycin Inj 1,000 MG in Sodium Chlor 0.9% Inj 250 ML IV.SIG ONE (07:55)
[2017-12-26] MEDS ORDERED: Potassium Chloride Inj 20 MEQ, Sodium Bicarbonate 8.4% Inj 50 MEQ in Sod Chloride 0.9% ... IV.CONT SCH (08:00)
[2017-12-26] MEDS: Piperacil/Tazo 2.25 GM Premix 50 ML IV.SIG SCH ×2 (08:41→16:25)
[2017-12-26] MEDS ORDERED: Piperacil/Tazo 3.375 GM Premix 50 ML IV.SIG ONE (08:44)
--- NOTE | 2017-12-26 08:44 | P.HPCC ---
History of Present Illness Service: Critical care Primary Care Physician: Dejon Boggs DO Chief Complaint: Respiratory failure, probable seizures History of Present Illness: Patient brought is a 77-year-old retirement resident with past medical history significant for COPD, history of respiratory failure/hypoxemia, IN in January 2017, paroxysmal atrial fibrillation, congestive heart failure, chronic kidney disease stage IV, chronic anemia and hypertension. Apparently at the retirement nursing developed acute shortness of breath, became unresponsive and hypopneic or apneic, followed by a probable seizure. EMS found patient unresponsive, but with a palpable pulse, Her blood pressure was 57 /31, received fluid resuscitation. Patient was intubated in the emergency department as she remained unresponsive. Patient had multiple hospitalization in the past including for STEMI in January 2017. I evaluated the patient in the ED. ER workup showed a BUN of 80 creatinine of 4 her baseline creatinine is approximately 2, bicarb today was 15.5. ABG showed significant metabolic acidosis and I have requested a lactic acid. A stat EEG had been ordered as patient has no previous history of seizures. I will not start antiepileptic medications at this time. Panculture ordered, start Zosyn for pneumonia. Get CT of the chest abdomen pelvis and head. Nephrology consult requested due to acute worsening of renal failure. Sepsis workup and renal failure workup is ongoing at this time - Diagnosis (1) Acute hypoxemic respiratory failure (2) Acute metabolic encephalopathy (3) Pulmonary edema (4) CHF exacerbation (5) Healthcare-associated pneumonia (6) Acute kidney injury superimposed on chronic kidney disease (7) Dehydration (8) Seizure (9) Hypotension (10) Chronic kidney disease (11) Hypertension (12) History of congestive heart failure Inpatient Certification: I hereby certify the need for inpatient ICU admission and continued care for at least 7 days at this time Estimated Total Length of Stay (Days): 7 Plans for Post Hospital Care: Not yet determined Review of Systems unobtainable due to endotracheal tube PMFSH - History History 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 - Medical / Surgical Hx Neg / Unobtainable Surgical History: Unable to Obtain - Medical History Medical History: Medical History (Last Reviewed 12/26/17 @ 07:29 by Naeem Perry) CHF (congestive heart failure) Chronic kidney disease, stage 4 (severe) Muscle weakness NSTEMI (non-ST elevated myocardial infarction) - Tobacco History Smoking Status: Unknown if ever smoked - Alcohol History How Often Do You Have a Drink Containing Alcohol: Unable to Obtain - Substance Use History Substance History: Unable to Obtain - Travel History Recent Travel in the [place] Within the Last 8 Weeks: No Recent Travel Out of the Country Within the Last 8 Weeks: No - Immunization History Tetanus Immunization: Unable to Assess Hx Influenza Vaccine This Season: Unable to Assess Medications and Allergies Active Medications: Active Medications Acetaminophen (Tylenol) 650 mg PO Q6H PRN PRN Reason: PAIN 1-10 AND/OR FEVER >101F Albuterol (Duoneb Neb (Geoff)) 1 ampul NEB Q6HR NEB GEOFF Albuterol (Duoneb Neb (Prn)) 1 ampul NEB Q4HR NEB PRN PRN Reason: SHORTNESS OF BREATH Chlorhexidine Gluconate (Chlorhexidine 2% Cloth) 3 pack TOPICAL DAILY@0400 GEOFF Stop: 01/01/18 03:59 Chlorhexidine Gluconate (Chlorhexidine 2% Cloth) 3 pack TOPICAL DAILY@0400 PRN PRN Reason: Extra cloth needed Stop: 01/01/18 03:59 Famotidine (Pepcid Pf Inj) 10 mg IV.PUSH Q12HR GEOFF Fentanyl Citrate (Fentanyl Inj) 50 mcg IV.PUSH Q1H PRN PRN Reason: SEE LABEL COMMENTS Heparin Sodium (Porcine) (Heparin Inj) 5,000 units SQ Q12HR GEOFF Propofol (Diprivan 1000 Mg/100 Ml Inj) 1,000 mg in 100 mls @ 1.2 mls/hr IV.CONT TITRATE PRN; Protocol PRN Reason: Per Protocol Sodium Chloride (Ns Inj) 1,000 mls @ 0 mls/hr IV.SIG [facility] Stop: 12/27/17 07:52 Last Admin: 12/26/17 08:42 Dose: 1,000 mls/hr Piperacillin/Tazobactam/Dextrose (Zosyn 2.25 Gm Premix) 50 mls @ 100 mls/hr IV.SIG Q8H GEOFF Last Admin: 12/26/17 08:41 Dose: 100 mls/hr Vancomycin HCl 1,000 mg/ (Sodium Chloride) 250 mls @ 250 mls/hr IV.SIG ONCE ONE Stop: 12/26/17 08:54 Sodium Bicarbonate 150 meq/ (Sterile Water) 1,000 mls @ 150 mls/hr IV.CONT .Q6H40M GEOFF Sodium Chloride (Ns Flush) 2 ml IV.FLUSH PRN PRN PRN Reason: FLUSH AFTER USING IV ACCESS Allergies Allergy/AdvReac Type Severity Reaction Status Date / Time shellfish derived Allergy Unknown Unverified 11/12/16 18:14 Home Medications Medication Instructions Recorded Confirmed Type Unable to Obtain Home Meds 12/26/17 12/26/17 History Results - Labs CBC & Chem 7: 12/26/17 06:40 12/26/17 06:40 Labs: Short CBC 12/26/17 Range/Units 06:40 WBC 6.5 (4.0-11.0) th/mm3 Hgb 9.0 L (11.6-15.3) gm/dL Hct 27.3 L (35.0-46.0) % Plt Count 156 (150-450) th/mm3 BMP 12/26/17 06:40 Sodium 132 L Potassium 4.0 Chloride 101 Carbon Dioxide 15.5 L BUN 80 H Creatinine 4.05 H Calcium 8.7 Cardiac Enzymes 12/26/17 Range/Units 06:40 Troponin I 0.08 H (0.02-0.05) ng/mL Liver Function 12/26/17 Range/Units 06:40 Total Bilirubin 0.6 (0.2-1.0) mg/dL AST 20 (15-37) U/L ALT 11 (10-53) U/L Alkaline Phosphatase 73 (45-117) U/L Albumin 2.6 L (3.4-5.0) g/dL - Imaging Impressions Chest X-Ray 12/26/17 05:58 CONCLUSION: 1. ETT and NGT in good position. 2. Diffuse interstitial edema and perihilar patchy airspace opacities in a pulmonary edema pattern. Exam Vital signs: Vital Signs 12/26/17 05:58 12/26/17 06:00 12/26/17 06:24 Temperature 97.6 F Pulse Rate 49 L 63 Respiratory Rate 23 12 Blood Pressure 109/59 L Pulse Oximetry 98 98 98 12/26/17 06:47 12/26/17 07:00 12/26/17 07:11 Temperature Pulse Rate 71 50 L Respiratory Rate 12 21 24 Blood Pressure 116/59 L 107/59 L Pulse Oximetry 98 100 100 12/26/17 07:30 Temperature Pulse Rate 50 L Respiratory Rate 24 Blood Pressure 103/62 Pulse Oximetry 100 Intake & Output 12/25/17 12/26/17 12/26/17 18:59 06:59 18:59 Weight 40 kg Narrative: GENERAL: Elderly female, frail, thin, poorly nourished, intubated, sedated with propofol SKIN: Poor turgor, warm/dry. HEAD: Atraumatic. Normocephalic. EYES: Right pupil postsurgical changes, left pupil 3 mm, responsive. No scleral icterus. Patient resisted eye opening ENT: Endotracheal tube present atraumatic, mucous membrane dry NECK: Trachea midline. No JVD. CARDIOVASCULAR: Paced rhythm apparent on monitoring coordinator. Systolic murmur along the left sternal border, marginally hypotensive. Left upper chest pacemaker in place RESPIRATORY: Coarse bilateral posterior breath sounds, bilateral crackles. Bilateral expiratory wheezing. Right upper chest [id number] in place GASTROINTESTINAL: Abdomen soft, nondistended. Left lower quadrant has what appears to be a subcutaneous pump MUSCULOSKELETAL: No obvious deformities. No clubbing. No cyanosis. No edema. NEUROLOGICAL: Intubated sedated encephalopathy but waking up more. She resist eye opening. Weakly follows commands by squeezing hands on upper extremities. Did not follow commands and lower extremities Septic Shock Reassessment Septic shock perfusion: reassessment completed Caprini VTE Risk Assessment Caprini VTE Risk Assessment: Moderate/High Risk (score >= 2) Caprini Risk Assessment Model: Point Value = 1 Point Value = 2 Point Value = 3 Point Value = 5 Age 41-60 Minor surgery BMI > 25 kg/m2 Swollen legs Varicose veins or History of unexplained or recurrent spontaneous Oral contraceptives or hormone replacement Sepsis (< 1 month) Serious lung disease, including pneumonia (< 1 month) Abnormal pulmonary function Acute myocardial infarction Congestive heart failure (< 1 month) History of inflammatory bowel disease Medical patient at bed rest Age 61-74 Arthroscopic surgery Major open surgery (> 45 min) Laparoscopic surgery (> 45 min) Malignancy Confined to bed (> 72 hours) Immobilizing plaster cast Central venous access Age >= 75 History of VTE Family history of VTE Factor V Leiden Prothrombin [id number] Lupus anticoagulant Anticardiolipin antibodies Elevated serum homocysteine Heparin-induced thrombocytopenia Other congenital or acquired thrombophilia Stroke (< 1 month) Elective arthroplasty Hip, pelvis, or leg fracture Acute spinal cord injury (< 1 month) Prophylaxis Regimen: Total Risk Factor Score Risk Level Prophylaxis Regimen 0-1 Low Early ambulation 2 Moderate Order ONE of the following: *Sequential Compression Device (SCD) *Heparin 5000 units SQ BID 3-4 Higher Order ONE of the following medications: *Heparin 5000 units SQ TID *Enoxaparin/Lovenox 40 mg SQ daily (WT < 150 kg, CrCl > 30 mL/min) *Enoxaparin/Lovenox 30 mg SQ daily (WT < 150 kg, CrCl > 10-29 mL/min) *Enoxaparin/Lovenox 30 mg SQ BID (WT < 150 kg, CrCl > 30 mL/min) AND/OR *Sequential Compression Device (SCD) 5 or more Highest Order ONE of the following medications: *Heparin 5000 units SQ TID (Preferred with Epidurals) *Enoxaparin/Lovenox 40 mg SQ daily (WT < 150 kg, CrCl > 30 mL/min) *Enoxaparin/Lovenox 30 mg SQ daily (WT < 150 kg, CrCl > 10-29 mL/min) *Enoxaparin/Lovenox 30 mg SQ BID (WT < 150 kg, CrCl > 30 mL/min) AND *Sequential Compression Device (SCD) Assessment and Plan - Problem List (1) Acute hypoxemic respiratory failure Code(s): J96.01 - Acute respiratory failure with hypoxia Status: Acute (2) Acute metabolic encephalopathy Code(s): G93.41 - Metabolic encephalopathy Status: Acute (3) Pulmonary edema Code(s): J81.1 - Chronic pulmonary edema Status: Acute (4) CHF exacerbation Code(s): I50.9 - Heart failure, unspecified Status: Acute (5) Healthcare-associated pneumonia Code(s): J18.9 - Pneumonia, unspecified organism Status: Acute (6) Acute kidney injury superimposed on chronic kidney disease Code(s): N17.9 - Acute kidney failure, unspecified; N18.9 - Chronic kidney disease, unspecified Status: Acute (7) Dehydration Code(s): E86.0 - Dehydration Status: Acute (8) Seizure Code(s): R56.9 - Unspecified convulsions Status: Acute (9) Hypotension Code(s): I95.9 - Hypotension, unspecified Status: Acute (10) Chronic kidney disease Code(s): N18.9 - Chronic kidney disease, unspecified Status: Chronic (11) Hypertension Code(s): I10 - Essential (primary) hypertension Status: Chronic (12) History of congestive heart failure Code(s): Z86.79 - Personal history of other diseases of the circulatory system Status: Chronic - Assessment and Plan Plan: NEURO: Acute metabolic encephalopathy Probable seizure -Propofol and as needed fentanyl for sedation and ventilator synchrony -CT of the head negative for acute hemorrhage or infarct -Check EEG, hold off AED -Start daily sedation vacation in 24 hours -Check UDS RESP: Acute hypoxemic respiratory failure Healthcare associated pneumonia COPD exacerbation Pulmonary edema History of multiple pulmonary nodules -PRVC/AC, Ventilator bundle -DuoNeb every 6 hours scheduled and as needed -IV Solu-Medrol 40 mg every 8 hours -Broad-spectrum antibiotics with Zosyn and single dose of vancomycin -SBT when appropriate CV: Acute systolic heart failure exacerbation Hypotension Ischemic cardiomyopathy with ejection fraction 40-45% Coronary artery disease status post IN -Due to severe hypotension patient was resuscitated with normal saline 2 L bolus and maintenance fluid at 84 mL/h due to hypotension -Once hemodynamically stable will need aggressive diuresis versus hemodialysis for fluid removal -Levophed to keep map above 65 -Check 2d echo, serial troponin. Previous echo in February showed EF 40-45% -Home medications are unknown at this time, will place on aspirin 81 mg daily -Based on imaging studies it is unclear whether pulmonary edema is cardiogenic or noncardiogenic most likely both GI: -N.p.o., IV famotidine -Bowel regimen : Acute on chronic kidney disease -Monitor renal function closely. Place Olson catheter for accurate intake output in acute renal failure and CHF -Nephrology consult, CT abdomen pelvis showed atrophic kidneys indicating chronic kidney disease ID: Severe sepsis Healthcare associated pneumonia -Antibiotics with Zosyn, single dose of vancomycin -Blood urine and sputum cultures HEME: -Monitor CBC, coags, fibrinogen as needed ENDO: -Electrolyte replacement as indicated -Sliding scale insulin PROPH: -Bilateral lower extremity SCDs. Heparin/famotidine LINES: -Utilize peripheral IVs, use [id number] on the right upper chest CC time 77 min Code Status: Full Discussed Condition With: Dr. Dixon
--- NOTE | 2017-12-26 09:12 | CT ---
EXAM DATE: 12/26/2017 6:03 AM EDT AGE/SEX: 77 years / Female INDICATIONS: Seizures today. CLINICAL DATA: This is the patient's initial encounter. Patient reports that signs and symptoms have been present for 1 day and indicates a pain score of Nonresponsive. MEDICAL/SURGICAL HISTORY: Cardiovascular disease. None. RADIATION DOSE: 66.34 CTDI (mGy) COMPARISON: No prior exams available for comparison. TECHNIQUE: CT of the head without contrast. Using automated exposure control and adjustment of the mA and/or kV according to patient size, radiation dose was kept as low as reasonably achievable to ob tain optimal diagnostic quality images. DICOM format image data is available electronically for revi ew and comparison. FINDINGS: Cerebrum: Evaluation of the right middle cranial fossa is limited by beam hardening artifact from de vice in the right occipital region. Moderate diffuse cerebral atrophy. The ventricles are normal for degree of atrophy. No evidence of midline shift, mass lesion, hemorrhage or acute infarction. No ext raaxial fluid collections are seen. Posterior Fossa: Evaluation of the cephalad right posterior fossa is limited due to beam hardening ar tifact. The cerebellum and brainstem are intact. The 4th ventricle is midline. The cerebellopontine angle is unremarkable. Extracranial: The visualized portion of the orbits is intact. Skull: The calvaria is intact. No evidence of skull fracture. CONCLUSION: 1. Limited examination of the right middle cranial and cephalad posterior fossa due to beam hardenin g artifact from the device in the right occipital scalp. 2. Senescent changes without acute intracranial abnormality. . Electronically signed by: Madhu Draper MD 12/26/2017 9:10 AM EDT
--- NOTE | 2017-12-26 09:20 | CT ---
EXAM DATE: 12/26/2017 7:54 AM EDT AGE/SEX: 77 years / Female INDICATIONS: Low oxygen saturations. CLINICAL DATA: This is the patient's initial encounter. Patient reports that signs and symptoms have been present for 1 day and indicates a pain score of Nonresponsive. MEDICAL/SURGICAL HISTORY: Cardiovascular disease. Pacemaker. RADIATION DOSE: 5.10 CTDI (mGy) ; Combined studies COMPARISON: [facility] [place], CT THORAX W/O CONTRAST, 03/01/2017. . TECHNIQUE: Multiple contiguous axial images were obtained through the chest without contrast. Image s were obtained in suspended respiration using multiple row detector helical technique. Using automa gregory exposure control and adjustment of the mA and/or kV according to patient size, radiation dose was kept as low as reasonably achievable to obtain optimal diagnostic quality images. DICOM format imag e data is available electronically for review and comparison. FINDINGS: Lung: ETT is in good position. Diffuse bilateral patchy groundglass opacities most prominently in th e left upper lobe. There are scattered numerous bilateral pulmonary nodules measuring 3 to 6 mm which appear unchanged from prior exam. There is a densely calcified subpleural nodule in the right lower lobe. Pleura: Small simple appearing bilateral pleural effusions. Mediastinum: Prominent coronary artery calcifications. Dual-lead pacemaker in place. Heart is otherw ise unremarkable without significant pericardial effusion. Main pulmonary artery is prominent in size measuring up to 3.6 cm. Osseous Structures: Exaggerated kyphosis of the thoracic spine. No focal abnormal lytic or blastic mimi ny lesions. Degenerative spondylosis. Soft Tissues: Soft tissues are unremarkable. No significant axillary adenopathy. Other: NGT in the stomach. Numerous splenic calcifications. Left kidney appears atrophic in the visu alized portions. CONCLUSION: 1. Diffuse bilateral patchy groundglass airspace disease, most prominently in the left upper lobe. T his pattern is most consistent with pulmonary edema. Differential considerations include developing A RDS versus atypical/diffuse infection. 2. Simple appearing bilateral pleural effusions. 3. Stable numerous bilateral solid pulmonary nodules measuring 3 to 6 mm with a single densely calci fied granuloma. Optional CT examination may be performed in 6 months (12 months from prior exam) to document stability per 2017 Fleischner criteria. 4. Prominent coronary calcifications. 5. Enlarged main pulmonary artery consistent with some degree of pulmonary artery hypertension. Electronically signed by: Madhu Draper MD 12/26/2017 9:18 AM EDT
--- NOTE | 2017-12-26 09:26 | CT ---
EXAM DATE: 12/26/2017 8:30 AM EDT AGE/SEX: 77 years / Female INDICATIONS: Sepsis, renal failure. CLINICAL DATA: This is the patient's initial encounter. Patient reports that signs and symptoms have been present for 1 day and indicates a pain score of Nonresponsive. MEDICAL/SURGICAL HISTORY: Cardiovascular disease. Renal failure. None. RADIATION DOSE: 5.10 CTDI (mGy) ; Combined studies COMPARISON: [facility] [place], CT ABDOMEN & PELVIS W/O CONTRAST, 03/01/2017. . TECHNIQUE: Multiple contiguous axial images were obtained through the abdomen. Images were obtained using multiple row detector helical technique. Using automated exposure control and adjustment of the mA and/or kV according to patient size, radiation dose was kept as low as reasonably achievable to o btain optimal diagnostic quality images. DICOM format image data is available electronically for rev iew and comparison. FINDINGS: Lower chest: There are small bilateral pleural effusions, right slightly larger than left. Calcified granuloma is visualized at the right lung base and there is a 6 mm noncalcified pulmonary nodule on i mage 3. A mild interstitial and groundglass opacity is of visualized at both lung bases. Please refer to chest CT report for further description. Hepatobiliary: Liver density is at the upper limits for normal. There are a few scattered punctate ca lcifications. Patient is post cholecystectomy with clips in the gallbladder fossa. There is no bile d uct dilatation. Kidneys: Both kidneys are small in size. No hydronephrosis, stone, or mass is present. Adrenal Glands: Within normal limits. Spleen: There are innumerable punctate calcifications throughout a normal sized spleen. Pancreas: No pancreas abnormality is appreciated. Vascular: There is severe atherosclerotic disease of the aorta. Left renal artery stent is present. N o aneurysm is visualized. Bowel/Mesentery: Nasogastric tube distal tip is in the gastric body. Small bowel demonstrates no acut e abnormality. Sigmoid diverticulosis is present but no acute colon abnormality is visualized. There is a prominent amount of stool throughout the colon. Small volume of free fluid is present within the pelvis. There is no free intraperitoneal air visualized. Abdominal Wall: No hernia is visualized. There is a subcutaneously implanted pump on the left flank. Leads/catheter extends into the lumbar spinal canal. Retroperitoneum: No lymphadenopathy. Bladder: No wall thickening or mass. Reproductive: No abnormality is identified. Inguinal: No lymphadenopathy or hernia. Musculoskeletal: No acute osseous abnormality is identified. There are degenerative changes of the jess mbar spine. No lytic or blastic lesion is seen. CONCLUSION: 1. There is a small volume of free fluid in the pelvis. It has a simple appearance on this examinati on. No specific abnormality is identified to explain the patient's sepsis. 2. Bilateral atrophic kidneys consistent with a history of renal failure. There is no hydronephrosis . 3. Nonacute findings include severe atherosclerotic disease and findings indicative of prior granulo matous infection. Please refer to chest CT report for description of the supradiaphragmatic findings. Electronically signed by: Winston Cuevas MD 12/26/2017 9:25 AM EDT
--- NOTE | 2017-12-26 11:37 | MG ---
cc: Paulo Acosta MD EEG NUMBER: [id number] This is a STAT EEG. On Diprivan; sedation, she is restless. INDICATIONS: Chronic anemia. MEDICATIONS: Diprivan. DESCRIPTION: A 5 Hz, 60 microvolt symmetric posterior rhythm is seen bilaterally. A lot of bifrontal muscle artifact is noted, but no hemisphere asymmetry is noted. No epileptiform or seizure activity is seen although there was a lot of muscle artifact throughout much of the recording. Hyperventilation not performed. Photic stimulation is performed without any posterior driving. IMPRESSION: Diffuse slowing consistent with a moderate diffuse encephalopathy, but no focal abnormality was noted. No seizure activity is seen. Paulo Acosta MD DJM/ld , 10:45 AM , 10:49 AM
[2017-12-26] MEDS: Sodium Bicarbonate 8.4% Inj 150 MEQ in Water for Inj, Sterile 850 ML IV.CONT SCH ×3 (11:57→21:42)
[2017-12-26 12:04] LABS: Bacteria,Urine Moderate /hpf; Bilirubin,Urine Negative (Negative); Clarity,Urine Hazy (Clear); Color,Urine Yellow (Yellw/Straw); Glucose,Urine (UA) Negative (Negative); Leukocyte Esterase,Urine Small (Negative); Nitrite,Urine Negative (Negative); Specific Gravity,Urine 1.013 (1.002-1.035)
[2017-12-26] MEDS ORDERED: Dextrose 50% in Water Syringe 50 ML ONE (12:22)
[2017-12-26 12:41] LABS: Troponin I 0.26 ng/mL (0.02-0.05)
[2017-12-26] MEDS: Heparin - SQ 10,000 UNITS/ML Vial SQ SCH ×2 (12:54→21:09)
[2017-12-26] MEDS: Famotidine PF Inj 20 MG/2 ML Vial IV.PUSH SCH ×2 (12:54→21:12)
[2017-12-26] MEDS: Propofol 1000 mg/100 ml Inj 1,000 MG/100 ML BOTTLE IV.CONT PRN ×2 (12:55→16:24)
[2017-12-26] MEDS: MethylPREDNISolone Sod Succinate Inj 40 MG/ML Vial IV.PUSH SCH ×2 (13:13→21:13)
--- NOTE | 2017-12-26 13:16 | P.CONPAL ---
Consult Service: Palliative Care Requesting Physician: Mary Montero Reason for Consult: a. To assist with evaluation and management of symptoms including: pain, dyspnea, debility b. To assist medical decision maker(s) with: better understanding of current medical conditions; weighing benefits/burdens of medical treatment options; making medical treatment decisions. Primary Care Provider: Dejon Boggs DO History of Present Illness History of Present Illness: This is a 77 yo female with hx CHF, CKD4, bilat hearing loss s/p right cochlear implant, v-fib arrest, NSTEMI 01/2017, AF s/p pacemaker, anemia, COPD who presented 12/26 from a long term via EMS for acute onset SOB, subsequent fall and seizure. Pt was unresponsive when EMS arrived. She did have a pulse. She was intubated. BP was 57/31 and improved on arrival to ER. CXR showed pulmonary edema. Chest CT showed pulmonary edema as well, bilat pleural effusions, stable pulmonary nodules, prominent coronary calcifications, pulmonary HTN. Labs remarkable for hgb 9, creatinine 4.05, BUN 80. EEG shows diffuse slowing consistent with moderate diffuse encephalopathy but no seizure activity. Pt has had multiple hospitalizations in past including a prolonged multi- institutional admission last year. October 2016 she was admitted to [facility] and found to have 3rd degree heart block and cardiac arrest. She was on ventilator and developed PNA, infected tracheostomy site, and urine ESBL. She was also started on HD. She transferred to [facility] 11/26/16 and then subsequently to [facility] 01/23/17 for further rehab where she progresed to minimal assist with mobility and ADLs. She thebn developed respiratory distress after HD and was transferred to ICU. She developed anemia and had GI work up that revealed gastritis, hemorrhoids. She was trasnferred back to [place] 01/2017. Prior to d/c she was transferred back to [facility] with anxiety, palpitations, and arm pain and found to have elevated troponins and ST depression. ECHO 02/28/17 showed EF 40-45 % and was noted at that time to be poor candidate for bypass. Up until that point stenting had been avoided d/t her kidney disease. Multiple providers felt at that time that stent placement had more risk than benefit. She did have a bronch for pulmonary nodules-- path benign. reported she was doing well with her therapy and "happy" at rehab except she wasn't eating much and has lost 60 lbs in the last year. She has hx chronic pain from spinal stenosis and sees pain mgmt. She has a morphine pain pump and an rx for PRN hydrocodone but rarely uses the hydrocodone. says she was generally w/o complaint of pain prior to this admission. She did have an admission to [facility] 5 weeks ago for SOB and spent some time in ICU. Function/Cognitive Trajectory: Reportedly was doing well in therapy up until 2 days ago but losing weight, eating little. No reported cognitive deficits. Lost 60lbs in last year. Review of Systems ROS pt limited d/t pt being sedated and intubated on vent. completed to best of my ability from chart, family, RN unobtainable due to endotracheal tube Constitutional: Reports weight loss, Denies increased appetite Eyes: Denies loss of vision Ears, Nose, Mouth, and Throat: Denies facial pain Cardiovascular: Reports rapid, pounding, or irregular heartbeat, Reports shortness of breath, Denies chest pain Respiratory: Reports shortness of breath Gastrointestinal: Denies abdominal pain Skin/Breast: Reports sores Neurologic: Reports tingling/numbness/burning sensations Psychiatric: Denies hopelessness, Denies lack of enjoyment PMF - History History Provided By: [employer] / EMT - Medical History Medical History: Medical History (Last Reviewed 12/26/17 @ 07:29 by Naeem Perry) CHF (congestive heart failure) Chronic kidney disease, stage 4 (severe) Muscle weakness NSTEMI (non-ST elevated myocardial infarction) - Surgical History Surgical History: Surgical History (Last Updated 12/26/17 @ 13:05 by LOU Nathan) H/O heart artery stent History of cholecystectomy Hx of appendectomy - Family History Family History: Family History (Last Updated 12/26/17 @ 13:06 by LOU Nathan) Mother CVA (cerebral vascular accident) Father CVA (cerebral vascular accident) - Tobacco History Second Hand Smoke Exposure: Yes Tobacco Use In Past 30 Days: No Smoking Status: Unknown if ever smoked - Alcohol History How Often Do You Have a Drink Containing Alcohol: Never (hx alcoholism quit 2001 ) - Substance Use History Substance History: No History of Abuse, Unable to Obtain - Travel History Recent Travel in the [facility] Within the Last 8 Weeks: No Recent Travel Out of the Country Within the Last 8 Weeks: No - Immunization History Tetanus Immunization: Unable to Assess Hx Influenza Vaccine This Season: Unable to Assess Medications and Allergies Active Medications: Active Medications Acetaminophen (Tylenol) 650 mg PO Q6H PRN PRN Reason: PAIN 1-10 AND/OR FEVER >101F Albuterol (Duoneb Neb (Yue)) 1 ampul NEB Q6HR NEB YUE Last Admin: 12/26/17 09:37 Dose: 1 ampul Albuterol (Duoneb Neb (Prn)) 1 ampul NEB Q4HR NEB PRN PRN Reason: SHORTNESS OF BREATH Aspirin (Aspirin Chew) 81 mg PO DAILY YUE Chlorhexidine Gluconate (Chlorhexidine 2% Cloth) 3 pack TOPICAL DAILY@0400 YUE Stop: 01/01/18 03:59 Chlorhexidine Gluconate (Chlorhexidine 2% Cloth) 3 pack TOPICAL DAILY@0400 PRN PRN Reason: Extra cloth needed Stop: 01/01/18 03:59 Famotidine (Pepcid Pf Inj) 10 mg IV.PUSH Q12HR YUE Fentanyl Citrate (Fentanyl Inj) 50 mcg IV.PUSH Q1H PRN PRN Reason: SEE LABEL COMMENTS Heparin Sodium (Porcine) (Heparin Inj) 5,000 units SQ Q12HR YUE Propofol (Diprivan 1000 Mg/100 Ml Inj) 1,000 mg in 100 mls @ 1.2 mls/hr IV.CONT TITRATE PRN; Protocol PRN Reason: Per Protocol Sodium Chloride (Ns Inj) 1,000 mls @ 0 mls/hr IV.SIG BOLUS [facility] Stop: 12/27/17 07:52 Last Admin: 12/26/17 08:42 Dose: 1,000 mls/hr Piperacillin/Tazobactam/Dextrose (Zosyn 2.25 Gm Premix) 50 mls @ 100 mls/hr IV.SIG Q8H YUE Last Admin: 12/26/17 08:41 Dose: 100 mls/hr Sodium Bicarbonate 150 meq/ (Sterile Water) 1,000 mls @ 150 mls/hr IV.CONT .Q6H40M YUE Last Admin: 12/26/17 11:57 Dose: 150 mls/hr Methylprednisolone Sodium Succinate (Solumedrol Inj) 40 mg IV.PUSH Q8HR YUE Sodium Chloride (Ns Flush) 2 ml IV.FLUSH PRN PRN PRN Reason: FLUSH AFTER USING IV ACCESS Terbutaline Sulfate (Brethine Inj) 1 mg SQ UNSCH PRN PRN Reason: For Extravasation Allergies Allergy/AdvReac Type Severity Reaction Status Date / Time shellfish derived Allergy Unknown Unverified 11/12/16 18:14 Home Medications Medication Instructions Recorded Confirmed Type Unable to Obtain Home Meds 12/26/17 12/26/17 History Advance Directives Living Will: Yes Healthcare Surrogate: Yes Ethical and Legal Issues: Patient is not currently capacitated to make medical decisions. Unclear if she will regain capacity. Per [place] statutes her would be the proxy decision-maker. Physical Exam Vital Signs: Vital Signs - 24 hr 12/26/17 05:58 12/26/17 06:00 12/26/17 06:24 Temperature 97.6 F Pulse Rate 49 L 63 Respiratory Rate 23 12 Blood Pressure 109/59 L Pulse Oximetry 98 98 98 12/26/17 06:47 12/26/17 07:00 12/26/17 07:11 Temperature Pulse Rate 71 50 L Respiratory Rate 12 21 24 Blood Pressure 116/59 L 107/59 L Pulse Oximetry 98 100 100 12/26/17 07:30 12/26/17 08:00 12/26/17 08:30 Temperature Pulse Rate 50 L 50 L 48 L Respiratory Rate 24 26 H 17 Blood Pressure 103/62 118/57 L 125/58 L Pulse Oximetry 100 100 100 12/26/17 09:34 12/26/17 09:38 12/26/17 09:58 Temperature 98.0 F Pulse Rate 48 L 52 L Respiratory Rate 12 19 16 Blood Pressure 126/69 Pulse Oximetry 98 12/26/17 11:45 Temperature Pulse Rate Respiratory Rate 14 Blood Pressure Pulse Oximetry 100 I&O: Intake & Output 12/24/17 12/25/17 12/26/17 12/27/17 06:59 06:59 06:59 06:59 Weight 40 kg Physical Exam: CONSTITUTIONAL/GENERAL: frail and cachectic appearing female TUBES/LINES/DRAINS: OETT, albrecht SKIN: No jaundice, rashes, or lesions. +Ecchymoses on upper extremities. + excoriations BLE. No wounds seen anteriorly. Skin temperature appropriate. Not diaphoretic. HEAD: Atraumatic. Normocephalic. +temporal wasting EYES: No scleral icterus. No injection or drainage. Fundi not examined. ENT: Hearing grossly normal. Nose without bleeding or purulent drainage. Throat without visible erythema, exudates, masses, or lesions. NECK: Trachea midline. Supple, nontender. No palpable thyroid enlargement or nodularity. CARDIOVASCULAR: RRR w+ murmurs, no gallops, or rubs. No JVD. Peripheral pulses symmetric. paced rhythm RESPIRATORY/CHEST: Symmetric, unlabored respirations. Clear to auscultation. Breath sounds equal bilaterally. No wheezes, rales, or rhonchi. diminished GASTROINTESTINAL: Abdomen soft, non-tender, mildly distended. No hepato- splenomegaly, or palpable masses. Bowel sounds present. +appliance LLQ under skin GENITOURINARY: Without palpable bladder distension. Albrecht catheter in place. MUSCULOSKELETAL: Extremities without clubbing, cyanosis, or edema. +muscle wasting BLE. RUE in restraint. No mottling or clubbing. NEUROLOGICAL: sedated on vent. PSYCHIATRIC: unable to assess, intubated and sedated on vent Diagnostic Tests Laboratory: Laboratory Results - last 72 hr 12/26/17 12/26/17 12/26/17 06:37 06:40 06:40 WBC 6.5 RBC 2.79 L Hgb 9.0 L Hct 27.3 L MCV 97.8 MCH 32.3 MCHC 33.0 RDW 17.3 H Plt Count 156 MPV 8.8 Neut % (Auto) 87.1 H Lymph % (Auto) 6.1 L [place] % (Auto) 6.2 Eos % (Auto) 0.3 Baso % (Auto) 0.3 Neut # (Auto) 5.7 Lymph # (Auto) 0.4 L [place] # (Auto) 0.4 Eos # (Auto) 0.0 Baso # (Auto) 0.0 WBC Differential . Differential Comment Auto diff final D-Dimer Quant (PE/DVT) 3.93 H Puncture Site Right radial Patient Temperature 98.6 O2 Saturation 97 ABG pH 7.23 L* ABG pCO2 36 L ABG pO2 180 H ABG HCO3 14 L* ABG O2 Content 14.0 ABG Base Excess -11.8 L ABG Methemoglobin 1.0 Palmer Test Present Hemoglobin 10.0 L Carboxyhemoglobin 1.1 O2 Delivery Device Ventilator Vent Setting Prvc/ac 12 vt 500 Inspired O2 100 Critical Value Yes Sodium Potassium Chloride Carbon Dioxide Anion Gap BUN Creatinine Estimated GFR POC Glucose Random Glucose Lactic Acid Calcium Total Bilirubin AST ALT Alkaline Phosphatase Troponin I Total Protein Albumin Urine Color Urine Clarity Urine pH Ur Specific [place] Urine Protein Urine Glucose (UA) Urine Ketones Urine Occult Blood Urine Nitrate Urine Bilirubin Urine Urobilinogen Ur Leukocyte Esterase Urine RBC Urine WBC Urine WBC Clumps Urine Bacteria Micro UA Comment Ur Microscopic Review Urine Culture Comments 12/26/17 12/26/17 12/26/17 06:40 08:37 10:20 WBC RBC Hgb Hct MCV MCH MCHC RDW Plt Count MPV Neut % (Auto) Lymph % (Auto) [place] % (Auto) Eos % (Auto) Baso % (Auto) Neut # (Auto) Lymph # (Auto) [place] # (Auto) Eos # (Auto) Baso # (Auto) WBC Differential Differential Comment D-Dimer Quant (PE/DVT) Puncture Site Patient Temperature O2 Saturation ABG pH ABG pCO2 ABG pO2 ABG HCO3 ABG O2 Content ABG Base Excess ABG Methemoglobin Palmer Test Hemoglobin Carboxyhemoglobin O2 Delivery Device Vent Setting Inspired O2 Critical Value Sodium 132 L Potassium 4.0 Chloride 101 Carbon Dioxide 15.5 L Anion Gap 16 H BUN 80 H Creatinine 4.05 H Estimated GFR 11 L POC Glucose Random Glucose 117 H Lactic Acid 0.7 0.5 Calcium 8.7 Total Bilirubin 0.6 AST 20 ALT 11 Alkaline Phosphatase 73 Troponin I 0.08 H Total Protein 5.2 L Albumin 2.6 L Urine Color Urine Clarity Urine pH Ur Specific [place] Urine Protein Urine Glucose (UA) Urine Ketones Urine Occult Blood Urine Nitrate Urine Bilirubin Urine Urobilinogen Ur Leukocyte Esterase Urine RBC Urine WBC Urine WBC Clumps Urine Bacteria Micro UA Comment Ur Microscopic Review Urine Culture Comments 12/26/17 12/26/17 11:15 12:19 WBC RBC Hgb Hct MCV MCH MCHC RDW Plt Count MPV Neut % (Auto) Lymph % (Auto) [place] % (Auto) Eos % (Auto) Baso % (Auto) Neut # (Auto) Lymph # (Auto) [place] # (Auto) Eos # (Auto) Baso # (Auto) WBC Differential Differential Comment D-Dimer Quant (PE/DVT) Puncture Site Patient Temperature O2 Saturation ABG pH ABG pCO2 ABG pO2 ABG HCO3 ABG O2 Content ABG Base Excess ABG Methemoglobin Palmer Test Hemoglobin Carboxyhemoglobin O2 Delivery Device Vent Setting Inspired O2 Critical Value Sodium Potassium Chloride Carbon Dioxide Anion Gap BUN Creatinine Estimated GFR POC Glucose 67 L Random Glucose Lactic Acid Calcium Total Bilirubin AST ALT Alkaline Phosphatase Troponin I Total Protein Albumin Urine Color Yellow Urine Clarity Hazy H Urine pH 5.0 Ur Specific [place] 1.013 Urine Protein 30 H Urine Glucose (UA) Negative Urine Ketones Negative Urine Occult Blood Negative Urine Nitrate Negative Urine Bilirubin Negative Urine Urobilinogen Less than 2 Ur Leukocyte Esterase Small H Urine RBC 1 Urine WBC 12 H Urine WBC Clumps Moderate H Urine Bacteria Moderate H Micro UA Comment Cath-culture ind Ur Microscopic Review Not Reportable Urine Culture Comments Cath-cult indicated Result Diagrams: 12/26/17 06:40 12/26/17 06:40 Imaging: ITS Impressions Abdomen/Pelvis CT 12/26/17 00:00 CONCLUSION: 1. There is a small volume of free fluid in the pelvis. It has a simple appearance on this examination. No specific abnormality is identified to explain the patient's sepsis. 2. Bilateral atrophic kidneys consistent with a history of renal failure. There is no hydronephrosis. 3. Nonacute findings include severe atherosclerotic disease and findings indicative of prior granulomatous infection. Please refer to chest CT report for description of the supradiaphragmatic findings. Head CT 12/26/17 05:57 CONCLUSION: 1. Limited examination of the right middle cranial and cephalad posterior fossa due to beam hardening artifact from the device in the right occipital scalp. 2. Senescent changes without acute intracranial abnormality. . Chest X-Ray 12/26/17 05:58 CONCLUSION: 1. ETT and NGT in good position. 2. Diffuse interstitial edema and perihilar patchy airspace opacities in a pulmonary edema pattern. Chest CT 12/26/17 07:49 CONCLUSION: 1. Diffuse bilateral patchy groundglass airspace disease, most prominently in the left upper lobe. This pattern is most consistent with pulmonary edema. Differential considerations include developing ARDS versus atypical/diffuse infection. 2. Simple appearing bilateral pleural effusions. 3. Stable numerous bilateral solid pulmonary nodules measuring 3 to 6 mm with a single densely calcified granuloma. Optional CT examination may be performed in 6 months (12 months from prior exam) to document stability per 2017 Fleischner criteria. 4. Prominent coronary calcifications. 5. Enlarged main pulmonary artery consistent with some degree of pulmonary artery hypertension. Patient/Family Conference Present at Family Conference: pt's Family Conference Time: 30 Family Conference Location: Bedside Issues Discussed: * Palliative care role, purpose, approach * Additional medical, psychosocial, and spiritual history * Patients general health, functional status, and cognitive changes in the months leading up to the current hospitalization * family understanding of the current medical problems * family understanding of prognosis * Patients goals of care as best understood from advance directives and/or conversations * Current medical treatment options and benefits/burdens of those options * Likely scenarios comparing ongoing aggressive care with a transition to comfort measures only - holding onto her recovery following the last major string of hospitalizations and the recent one 5 weeks ago at [place]. "she came back before" * code status - maintains he wants everything done until 'there's no hope and nothing left' * Questions answered to the best of my ability * Palliative care contact information provided Goals are aggressive. wants everything done. He bases his aggressive goals on the fact that pt "came back before." Explained that prognosis is still poor and each setback puts her farther back and that her nutrition status complicates recovery and rehab. He verbalizes understanding. Reaffirms full code. he said he will reconsider his goals if it appears she will be artificially sustained for a long period of time, "if it looks like she won't come back." would ideally like for her to go back to [facility] rehab,he feels she did well there and liked it. Assessment and Plan - Disease Oriented Problem List (1) Acute hypoxemic respiratory failure (2) Acute metabolic encephalopathy (3) Pulmonary edema (4) CHF exacerbation (5) Acute kidney injury superimposed on chronic kidney disease (6) History of congestive heart failure - Symptom Scale (1) Pain 0-10 Scale: Unable to quantify (2) Dyspnea 0-10 Scale: Unable to quantify (3) Debility 0-10 Scale: Unable to quantify Pertinent Non-Medical Issues: Psychosocial: Born in [place], [place]. Been 46 years. 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 She retired to [place] several years ago with her . She did have one child which she lost. Spiritual: She was raised Zoroastrian. 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 Legal: Patient is not currently capacitated to make medical decisions. Unclear if she will regain capacity. Per [place] statutes her would be the proxy decision-maker. Ethical issues impacting care: none Important Contacts: Wayne Buckley , cell Prognosis: This is a 77 yo female with hx CHF, CKD4, v-fib arrest, NSTEMI 01/2017, AF s/p pacemaker, anemia, COPD who presented 12/26 from a long term via EMS for acute onset SOB, subsequent fall and seizure. Pt has had multiple hospitalizations in past including a prolonged multi-institutional admission last year. She has lost 60 lbs in the last year. Poor prognosis. Even if she recovers from this current setback, she is at risk for continued decline and complications and it is unlikely she will return to her baseline given her poor nutritional status. Code Status: Full Code Plan: - LEGAL DECISION MAKER -Patient is not currently capacitated to make medical decisions. Unclear if she will regain capacity. Per [place] statutes her would be the proxy decision-maker. - CODE STATUS- full code - GOALS - Goals are aggressive. wants everything done. He bases his aggressive goals on the fact that pt "came back before." Explained that prognosis is still poor and each setback puts her farther back and that her nutrition status complicates recovery and rehab. He verbalizes understanding. Reaffirms full code. he said he will reconsider his goals if it appears she will be artificially sustained for a long period of time, "if it looks like she won't come back." would ideally like for her to go back to [facility] re[facility],he feels she did well there and liked it. is agreeable to continued palliative care follow up. - SYMPTOMS - * pain - multifactorial. hx chronic back pain and has pain pump. prior to admission pain well controlled with pain pump and rare use prn hydrocodone. has PRN fentanyl 50mcg q1h. no further recs at this time * dyspnea - multifactorial. hx NSTEMI, CHF. BNP >5000, has pulmonary edema, pleural effusion. intubated by EMS. hx COPD, CHF, STEMI,anemia. sedated and intubated on vent, breathing over vent. has yue and PRN duonebs, solumedrol, propofol gtt. mgmt per CCM * debility - pt with decreased appetite and 60 lb weight loss in last year. eats smoothies mostly, and chocolate flavored anything. appears cachectic. recommend trying appetite stimulant such as megace when pt is able to eat. TF per CCM - Palliative care will continue to follow during hospital course as condition evolves, to assist patient/decision-maker with understanding of medical conditions, weighing benefits/burdens of treatment options, for clarification of goals of treatment. Additionally will assist with any symptoms of palliative concern Appreciation Thank you for the opportunity to participate in the care of Kaya Buckley.
[2017-12-26] MEDS ORDERED: Dextrose 50% in Water 50 ML Vial IV.PUSH PRN (14:16)
[2017-12-26 14:41] LABS: Amphetamine Screen,Urine Neg (Neg); Barbiturate Screen,Urine Neg (Neg); Cannabinoid Screen,Urine Neg (Neg); Cocaine Screen,Urine Neg (Neg); Opiate Screen,Urine Pos (Neg)
--- NOTE | 2017-12-26 15:12 | P.CONNP ---
History of Present Illness Service: Nephrology Reason for Consult: acute on chronic kidney disease Primary Care Provider: Dejon Boggs DO Chief Complaint: Respiratory failure, probable seizures History of Present Illness: Ms. Buckley is 77 year old lady with stage IV CKD, severe pulmonary hypertension, s/p pacemaker, atrial fibrillation(paroxysmal), s/p CABG, CAD who has been admitted from rehab facility where she apparently developed shortness of breath, had a seizure and became unresponsive. Patient was intubated in the ambulance, brought to the ER. Subsequently admitted to ICU, she is on Propofol drip, but remains agitated. She has no Olson catheter, RN reports that she has had about 120 ml of urine so far today. She is currently on D5W with 150 mEq NaHCO3/liter at 150 ml/hour. CT and CXR reviewed. 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 - Medical History Medical History: Medical History (Last Reviewed 12/26/17 @ 07:29 by Naeem Perry) CHF (congestive heart failure) Chronic kidney disease, stage 4 (severe) Muscle weakness NSTEMI (non-ST elevated myocardial infarction) - Surgical History Surgical History: Surgical History (Last Updated 12/26/17 @ 13:05 by LOU Nathan) H/O heart artery stent History of cholecystectomy Hx of appendectomy - Family History Family History: Family History (Last Updated 12/26/17 @ 13:06 by LOU Nathan) Mother CVA (cerebral vascular accident) Father CVA (cerebral vascular accident) - Tobacco History Second Hand Smoke Exposure: Yes Tobacco Use In Past 30 Days: No Smoking Status: Unknown if ever smoked - Alcohol History How Often Do You Have a Drink Containing Alcohol: Never (hx alcoholism quit 2001 ) - Substance Use History Substance History: No History of Abuse, Unable to Obtain - Travel History Recent Travel in the [place] Within the Last 8 Weeks: No Recent Travel Out of the Country Within the Last 8 Weeks: No - Immunization History Tetanus Immunization: Unable to Assess Hx Influenza Vaccine This Season: Unable to Assess Medications and Allergies Active Medications: Active Medications Acetaminophen (Tylenol) 650 mg PO Q6H PRN PRN Reason: PAIN 1-10 AND/OR FEVER >101F Albuterol (Duoneb Neb (Yue)) 1 ampul NEB Q6HR NEB YUE Last Admin: 12/26/17 09:37 Dose: 1 ampul Albuterol (Duoneb Neb (Prn)) 1 ampul NEB Q4HR NEB PRN PRN Reason: SHORTNESS OF BREATH Aspirin (Aspirin Chew) 81 mg PO DAILY [facility] Chlorhexidine Gluconate (Chlorhexidine 2% Cloth) 3 pack TOPICAL DAILY@0400 YUE Stop: 01/01/18 03:59 Chlorhexidine Gluconate (Chlorhexidine 2% Cloth) 3 pack TOPICAL DAILY@0400 PRN PRN Reason: Extra cloth needed Stop: 01/01/18 03:59 Dextrose (D50w Vial) 50 ml IV.PUSH UNSCH PRN PRN Reason: PER HYPOGLYCEMIA PROTOCOL Famotidine (Pepcid Pf Inj) 10 mg IV.PUSH Q12HR [facility] Last Admin: 12/26/17 12:54 Dose: 10 mg Fentanyl Citrate (Fentanyl Inj) 50 mcg IV.PUSH Q1H PRN PRN Reason: SEE LABEL COMMENTS Glucagon (Glucagon Inj) 1 mg OTHER PRN PRN PRN Reason: for Hypoglycemia Protocol Heparin Sodium (Porcine) (Heparin Inj) 5,000 units SQ Q12HR [facility] Last Admin: 12/26/17 12:54 Dose: 5,000 units Propofol (Diprivan 1000 Mg/100 Ml Inj) 1,000 mg in 100 mls @ 1.2 mls/hr IV.CONT TITRATE PRN; Protocol PRN Reason: Per Protocol Last Admin: 12/26/17 12:55 Dose: 50 mcg/kg/min, 12 mls/hr Sodium Chloride (Ns Inj) 1,000 mls @ 0 mls/hr IV.SIG BOLUS [facility] Stop: 12/27/17 07:52 Last Admin: 12/26/17 08:42 Dose: 1,000 mls/hr Piperacillin/Tazobactam/Dextrose (Zosyn 2.25 Gm Premix) 50 mls @ 100 mls/hr IV.SIG Q8H [facility] Last Admin: 12/26/17 08:41 Dose: 100 mls/hr Sodium Bicarbonate 150 meq/ (Sterile Water) 1,000 mls @ 75 mls/hr IV.CONT .[id number] [facility] Last Admin: 12/26/17 11:57 Dose: 150 mls/hr Insulin Aspart (Novolog Insulin Correctional Sugar Inj) 0 unit SQ ACHS YUE; Protocol Methylprednisolone Sodium Succinate (Solumedrol Inj) 40 mg IV.PUSH Q8HR [facility] Last Admin: 12/26/17 13:13 Dose: 40 mg Sodium Chloride (Ns Flush) 2 ml IV.FLUSH PRN PRN PRN Reason: FLUSH AFTER USING IV ACCESS Terbutaline Sulfate (Brethine Inj) 1 mg SQ UNSCH PRN PRN Reason: For Extravasation Allergies Allergy/AdvReac Type Severity Reaction Status Date / Time shellfish derived Allergy Unknown Unverified 11/12/16 18:14 Home Medications Medication Instructions Recorded Confirmed Type Unable to Obtain Home Meds 12/26/17 12/26/17 History Exam Vital signs: Vital Signs 12/26/17 05:58 12/26/17 06:00 12/26/17 06:24 Temperature 97.6 F Pulse Rate 49 L 63 Respiratory Rate 23 12 Blood Pressure 109/59 L Pulse Oximetry 98 98 98 12/26/17 06:47 12/26/17 07:00 12/26/17 07:11 Temperature Pulse Rate 71 50 L Respiratory Rate 12 21 24 Blood Pressure 116/59 L 107/59 L Pulse Oximetry 98 100 100 12/26/17 07:30 12/26/17 08:00 12/26/17 08:30 Temperature Pulse Rate 50 L 50 L 48 L Respiratory Rate 24 26 H 17 Blood Pressure 103/62 118/57 L 125/58 L Pulse Oximetry 100 100 100 12/26/17 09:34 12/26/17 09:38 12/26/17 09:58 Temperature 98.0 F Pulse Rate 48 L 52 L Respiratory Rate 12 19 16 Blood Pressure 126/69 Pulse Oximetry 98 12/26/17 11:45 Temperature Pulse Rate Respiratory Rate 14 Blood Pressure Pulse Oximetry 100 Intake & Output 12/25/17 12/26/17 12/26/17 18:59 06:59 18:59 Weight 40 kg - Constitutional chronically ill appearing Comments: on the ventilator, intubated. - Routine HEENT Exam Head: Present: normocephalic, atraumatic Eye: Present: EOMI, PERRL ENT: Present: mucous membranes moist - Routine Neck Exam Absent: lymphadenopathy, thyromegaly - Routine Respiratory Exam Comments: vented breath sounds bilaterally. - Routine Cardiovascular Exam Comments: paced rhythm. - Routine Extremities Exam Comments: no edema. - Additional findings Additional findings: extremely frail, thin elderly lady Results - Lab Results 12/26/17 06:40 12/26/17 06:40 Most recent lab results ABG pH 7.23 (7.380-7.420) L* 12/26/17 06:37 ABG pCO2 36 mmHg (38-42) L 12/26/17 06:37 ABG pO2 180 mmHg (61-120) H 12/26/17 06:37 ABG HCO3 14 mmol/L (22-26) L* 12/26/17 06:37 Calcium 8.7 mg/dL (8.5-10.1) 12/26/17 06:40 Assessment and Plan - Assessment (1) Acute kidney injury superimposed on chronic kidney disease Code(s): N17.9 - Acute kidney failure, unspecified; N18.9 - Chronic kidney disease, unspecified Status: Acute Plan: She has underlying stage IV CKD. Patient was hypotensive in the rehab when EMS arrived. Hypotension could have resulted in prerenal azotemia, but could have progressed to ATN. Also rule out urinary retention. We will place Olson catheter. Rule out sepsis. She was on dialysis for almost 2 months last year before we were able to stop dialysis. Again a few weeks ago, she was admitted to [facility] when she was dialyzed a few times before renal function improved and we were able to stop dialysis. Baseline GFR is abut 19-21. Repeated episodes of DONNIE may result in progressive CKD. Plan: Reduce IVF. Olson catheter. Avoid nephrotoxic agents. Discussed with : he wants full aggressive care. May need dialysis again. Prognosis is poor. (2) Pulmonary hypertension Code(s): I27.20 - Pulmonary hypertension, unspecified Status: Acute Plan: She had been placed on Sildenafil. (3) History of congestive heart failure Code(s): Z86.79 - Personal history of other diseases of the circulatory system Status: Chronic (4) History of permanent cardiac pacemaker placement Code(s): Z95.0 - Presence of cardiac pacemaker Status: Chronic (5) Seizure Code(s): R56.9 - Unspecified convulsions Status: Acute Plan: Etiology: hypoxia or hypoglycemia or other causes. Monitor. (6) Disorder of acid-base balance Code(s): E87.8 - Other disorders of electrolyte and fluid balance, not elsewhere classified Status: Acute Plan: patient has high anion gap metabolic acidosis. Lactic acid is not high. Could be due to renal failure. - Attending Attestation Thanks for the consult.
[2017-12-26] MEDS: Midazolam 50 MG/50 ML Inj 50 MG/50 ML BAG IV.CONT PRN (15:54)
--- NOTE | 2017-12-26 15:54 | ECHRPT ---
Indication: HEART FALURE CONCLUSIONS The left ventricular systolic function is normal with an estimated ejection fraction in the range of 55-60%. Normal left ventricular size and wall thickness. No regional wall motion abnormalities. Grade II diastolic dysfunction. The left atrial size is mildly dilated. Mild aortic valve regurgitation. Mild mitral regurgitation. Mild tricuspid valve regurgitation. The estimated pulmonary arterial pressure is 40 mmHg. Compared to prior echo 2016, the EF has improved. BP: / HR: Rhythm: MEASUREMENTS (Male / Female) Normal Values Technical Quality: 2D ECHO LV Diastolic Diameter PLAX 4.3 cm 4.2 - 5.9 / 3.9 - 5.3 cm LV Systolic Diameter PLAX 2.5 cm IVS Diastolic Thickness 0.7 cm 0.6 - 1.0 / 0.6 - 0.9 cm LVPW Diastolic Thickness 1.1 cm 0.6 - 1.0 / 0.6 - 0.9 cm LV Relative Wall Thickness 0.4 RV Internal Dim ED PLAX 2.9 cm LVOT Diameter 1.8 cm Aortic Root Diameter 2.2 cm LA Systolic Diameter LX 3.9 cm 3.0 - 4.0 / 2.7 - 3.8 cm LV Ejection Fraction MOD 4C 68.4 % LV Ejection Fraction 4C AL 69.7 % M-MODE Aortic Root Diameter MM 3.6 cm LA Systolic Diameter MM 4.6 cm LA Ao Ratio MM 1.3 AV Cusp Separation MM 0.9 cm DOPPLER AV Peak Velocity 240.8 cm/s AV Peak Gradient 23.2 mmHg AV Mean Gradient 11.7 mmHg AV Velocity Time Integral 50.5 cm AI Peak Velocity 315.0 cm/s AI Peak Gradient 39.7 mmHg AI Pressure Half Time 615.0 ms LVOT Peak Velocity 128.0 cm/s LVOT Peak Gradient 6.6 mmHg LVOT Velocity Time Integral 26.5 cm AV Area Cont Eq vti 1.3 cm AV Area Cont Eq pk 1.4 cm Mitral E Point Velocity 101.0 cm/s Mitral A Point Velocity 96.7 cm/s Mitral E to A Ratio 1.0 LV E' Lateral Velocity 9.4 cm/s Mitral E to LV E' Lateral Ratio 10.8 LV E' Septal Velocity 8.0 cm/s Mitral E to LV E' Septal Ratio 12.6 TV Peak Velocity 232.0 cm/s TR Peak Velocity 273.0 cm/s TR Peak Gradient 29.8 mmHg Right Atrial Pressure 10.0 mmHg Pulmonary Artery Systolic Pressu 39.8 mmHg Right Ventricular Systolic Press 39.8 mmHg PV Peak Velocity 130.0 cm/s PV Peak Gradient 6.8 mmHg FINDINGS LEFT VENTRICLE Normal left ventricular size. Wall thickness is normal. The left ventricular systolic function is normal with an estimated ejection fraction in the range of 55-60%. RIGHT VENTRICLE Normal right ventricular size and systolic function. LEFT ATRIUM The left atrial size is mildly dilated. RIGHT ATRIUM The right atrial size is normal. ATRIAL SEPTUM Normal atrial septal thickness without atrial level shunting by limited color doppler interrogation. AORTA The aortic root and proximal ascending aorta are normal in size on limited imaging. MITRAL VALVE Structurally normal mitral valve. Mild mitral regurgitation. AORTIC VALVE Diffuse calcification of the aortic valve. Mild aortic valve regurgitation. TRICUSPID VALVE There is mild tricuspid valve regurgitation. The estimated pulmonary arterial pressure is 40 mmHg. PULMONARY VALVE No pulmonary valve regurgitation or stenosis. VESSELS The inferior vena cava is normal in size. PERICARDIUM No pericardial effusion. Ketty Mcarthur MD (Electronically Signed) Final Date:26 December 2017 15:53
[2017-12-26] MEDS: Insulin NovoLOG Aspart Correctional Sugar Inj SQ SCH ×2 (16:38→21:27)
[2017-12-27] MEDS: Piperacil/Tazo 2.25 GM Premix 50 ML IV.SIG SCH ×3 (01:12→21:12)
[2017-12-27 02:22] LABS: Troponin I 0.27 ng/mL (0.02-0.05)
[2017-12-27] MEDS: Midazolam 50 MG/50 ML Inj 50 MG/50 ML BAG IV.CONT PRN (03:32)
--- NOTE | 2017-12-27 03:35 | XR ---
EXAM DATE: 12/27/2017 12:00 AM EDT AGE/SEX: 77 years / Female INDICATIONS: Shortness of breath, possible pulmonary disease. CLINICAL DATA: This is the patient's subsequent encounter. Patient reports that signs and symptoms h ave been present for 2 days and indicates a pain score of Nonresponsive. MEDICAL/SURGICAL HISTORY: Anemia. Cardiovascular disease. Appendectomy. Pacemaker. Cholecyst ectomy. Thyroidectomy. COMPARISON: [facility], CHEST 1V SINGLE AP, 12/26/2017. . FINDINGS: The ET tube, NG tube and right internal jugular central line are well placed. The heart size is mandy l. The lungs are grossly clear. There is a pacing device seen in the left chest. CONCLUSION: Lungs appear clear. The previously seen edema has largely resolved. Electronically signed by: Winston Hernandez MD 12/27/2017 3:34 AM EDT
[2017-12-27] MEDS ORDERED: Chlorhexidine Gluconate 2% 1 Pack (2 Cloths) TOPICAL PRN (04:00)
[2017-12-27 04:56] LABS: Baso % (Auto) 0.1 % (0.0-2.0); Eos % (Auto) 0.2 % (0.0-4.0); Hematocrit 21.2 % (35.0-46.0); Hemoglobin 7.2 gm/dL (11.6-15.3); Lymph # (Auto) 0.1 th/mm3 (1.0-4.8); Mean Corpuscular HGB Conc 33.8 % (32.0-36.0); Mean Corpuscular Hemoglobin 32.9 pg (27.0-34.0); Mean Corpuscular Volume 97.2 fL (80.0-100.0); Mean Platelet Volume 8.6 fL (7.0-11.0); Neut # (Auto) 3.5 th/mm3 (1.8-7.7); Neut % (Auto) 94.7 % (16.0-70.0); Platelet Count 93 th/mm3 (150-450); Red Blood Count 2.18 mil/mm3 (4.00-5.30); Red Cell Distribution Width 17.1 % (11.6-17.2); White Blood Count 3.7 th/mm3 (4.0-11.0)
[2017-12-27 05:20] LABS: Albumin 2.1 g/dL (3.4-5.0); Calcium 7.1 mg/dL (8.5-10.1); Carbon Dioxide 21.2 meq/L (21.0-32.0); Potassium 3.7 meq/L (3.5-5.1)
[2017-12-27] MEDS: MethylPREDNISolone Sod Succinate Inj 40 MG/ML Vial IV.PUSH SCH ×3 (05:24→23:26)
[2017-12-27] MEDS: Chlorhexidine Gluconate 2% 1 Pack (2 Cloths) TOPICAL SCH (05:25)
[2017-12-27 05:26] LABS: Total Protein 4.5 g/dL (6.4-8.2)
[2017-12-27] MEDS: Propofol 1000 mg/100 ml Inj 1,000 MG/100 ML BOTTLE IV.CONT PRN ×2 (06:25→23:25)
--- NOTE | 2017-12-27 08:00 | P.PNCC ---
Subjective Subjective Remarks/Hospital Course: Patient brought is a 77-year-old [facility] resident with past medical history significant for COPD, history of respiratory failure/hypoxemia, RI in January 2017, paroxysmal atrial fibrillation, congestive heart failure, chronic kidney disease stage IV, chronic anemia and hypertension. Apparently at the [facility] nursing developed acute shortness of breath, became unresponsive and hypopneic or apneic, followed by a probable seizure. EMS found patient unresponsive, but with a palpable pulse, Her blood pressure was 57 /31, received fluid resuscitation. Patient was intubated in the emergency department as she remained unresponsive. Patient had multiple hospitalization in the past including for STEMI in January 2017. I evaluated the patient in the ED. ER workup showed a BUN of 80 creatinine of 4 her baseline creatinine is approximately 2, bicarb today was 15.5. ABG showed significant metabolic acidosis and I have requested a lactic acid. A stat EEG had been ordered as patient has no previous history of seizures. I will not start antiepileptic medications at this time. Panculture ordered, start Zosyn for pneumonia. Get CT of the chest abdomen pelvis and head. Nephrology consult requested due to acute worsening of renal failure. Sepsis workup and renal failure workup is ongoing at this time 12/27/17: Remains intubated sedated. FiO2 down to 40%, chest x-ray shows improving infiltrates. Urine output 700 mL in 24 hours. Did not follow commands but moving all extremities. Cultures are pending at this time Objective Vital Signs / I&O: Vital Signs 12/26/17 08:00 12/26/17 08:30 12/26/17 09:34 Temperature Pulse Rate 50 L 48 L Respiratory Rate 26 H 17 12 Blood Pressure 118/57 L 125/58 L Pulse Oximetry 100 100 12/26/17 09:38 12/26/17 09:58 12/26/17 11:45 Temperature 98.0 F Pulse Rate 48 L 52 L Respiratory Rate 19 16 14 Blood Pressure 126/69 Pulse Oximetry 98 100 12/26/17 14:59 12/26/17 15:00 12/26/17 15:15 Temperature 97.8 F Pulse Rate 74 77 75 Respiratory Rate 15 19 30 H Blood Pressure 112/62 106/61 Pulse Oximetry 100 100 100 12/26/17 15:30 12/26/17 15:45 12/26/17 16:00 Temperature Pulse Rate 72 73 79 Respiratory Rate 17 18 19 Blood Pressure 116/66 113/65 110/61 Pulse Oximetry 100 100 100 12/26/17 16:15 12/26/17 16:30 12/26/17 17:45 Temperature 94.8 F L 94.6 F L Pulse Rate 80 79 67 Respiratory Rate 19 18 12 Blood Pressure 104/60 92/55 L 94/56 L Pulse Oximetry 100 100 100 12/26/17 18:00 12/26/17 18:15 12/26/17 18:30 Temperature 95.0 F L 95.4 F L 95.9 F L Pulse Rate 69 70 73 Respiratory Rate 13 13 13 Blood Pressure 97/59 L 100/60 104/57 L Pulse Oximetry 100 100 100 12/26/17 18:45 12/26/17 19:00 12/26/17 19:15 Temperature 96.4 F L 97.0 F L 97.3 F L Pulse Rate 86 84 83 Respiratory Rate 17 16 14 Blood Pressure 104/63 108/64 109/64 Pulse Oximetry 100 100 100 12/26/17 19:30 12/26/17 19:41 12/26/17 19:45 Temperature 97.5 F L 97.9 F Pulse Rate 79 78 78 Respiratory Rate 14 13 14 Blood Pressure 107/62 103/58 L Pulse Oximetry 100 100 100 12/26/17 20:00 12/26/17 20:15 12/26/17 20:30 Temperature 98.1 F 98.2 F 98.6 F Pulse Rate 76 77 76 Respiratory Rate 13 13 13 Blood Pressure 88/53 L 98/56 L 100/63 Pulse Oximetry 100 99 100 12/26/17 20:45 12/26/17 21:00 12/26/17 21:15 Temperature 98.6 F 98.6 F 98.8 F Pulse Rate 73 76 63 Respiratory Rate 16 16 13 Blood Pressure 105/58 L 106/54 L 99/56 L Pulse Oximetry 100 100 100 12/26/17 21:33 12/26/17 21:45 12/26/17 22:00 Temperature 99.1 F 99.1 F 99.3 F Pulse Rate 58 L 69 77 Respiratory Rate 14 14 14 Blood Pressure 98/55 L 95/51 L 92/50 L Pulse Oximetry 99 100 100 12/26/17 22:15 12/26/17 22:30 12/26/17 22:32 Temperature 99.3 F 99.5 F 99.5 F Pulse Rate 77 75 76 Respiratory Rate 14 14 14 Blood Pressure 95/52 L 78/51 L 101/57 L Pulse Oximetry 100 100 100 12/26/17 22:36 12/26/17 22:45 12/26/17 23:00 Temperature 99.5 F 99.5 F Pulse Rate 87 81 Respiratory Rate 13 18 14 Blood Pressure 106/63 98/60 L Pulse Oximetry 100 100 100 12/26/17 23:15 12/26/17 23:30 12/26/17 23:46 Temperature 99.7 F H 99.7 F H 99.7 F H Pulse Rate 80 76 72 Respiratory Rate 15 15 31 H Blood Pressure 106/55 L 110/58 L 150/75 H Pulse Oximetry 99 100 99 12/27/17 00:00 12/27/17 00:15 12/27/17 00:30 Temperature 100.0 F H 100.0 F H 100.0 F H Pulse Rate 80 75 81 Respiratory Rate 13 14 18 Blood Pressure 95/52 L 105/58 L 110/62 Pulse Oximetry 100 100 100 12/27/17 00:45 12/27/17 01:00 12/27/17 01:15 Temperature 99.9 F H 99.7 F H 99.3 F Pulse Rate 80 79 79 Respiratory Rate 16 15 15 Blood Pressure 108/60 107/58 L 104/58 L Pulse Oximetry 100 100 100 12/27/17 01:30 12/27/17 01:45 12/27/17 02:00 Temperature 99.1 F 98.8 F 98.6 F Pulse Rate 78 80 80 Respiratory Rate 15 17 15 Blood Pressure 105/59 L 106/60 112/66 Pulse Oximetry 100 100 100 12/27/17 02:15 12/27/17 02:30 12/27/17 02:45 Temperature 98.4 F 98.2 F 97.9 F Pulse Rate 75 75 73 Respiratory Rate 14 14 13 Blood Pressure 111/63 108/62 106/62 Pulse Oximetry 100 100 100 12/27/17 03:00 12/27/17 03:16 12/27/17 03:30 Temperature 98.1 F 97.9 F 97.7 F Pulse Rate 90 92 H 80 Respiratory Rate 29 H 25 H 12 Blood Pressure 125/79 114/76 120/67 Pulse Oximetry 100 100 100 12/27/17 03:45 12/27/17 04:00 12/27/17 04:04 Temperature 97.5 F L 97.5 F L Pulse Rate 86 77 76 Respiratory Rate 17 12 12 Blood Pressure 115/62 116/65 Pulse Oximetry 100 100 100 12/27/17 04:15 12/27/17 04:30 12/27/17 07:38 Temperature 97.5 F L 97.3 F L Pulse Rate 75 72 92 H Respiratory Rate 12 12 15 Blood Pressure 106/60 102/58 L Pulse Oximetry 100 100 12/27/17 07:39 Temperature Pulse Rate Respiratory Rate 18 Blood Pressure Pulse Oximetry 100 Intake & Output 12/26/17 12/27/17 12/27/17 18:59 06:59 18:59 Intake Total 1200 / 1200 150 / 150 50 / 50 Output Total 500 / 500 200 / 200 Balance 700 / 700 -50 / -50 50 / 50 Weight 46 kg Intake: IV 1200 / 1200 150 / 150 50 / 50 Versed Inj 50 mg In 50 ml @ 2 50 / 50 MG/HR 2 mls/hr IV.CONT TITRATE PRN Rx#:[id number] Diprivan 1000 mg/100 ml Inj 1, 100 / 100 100 / 100 000 mg In 100 ml @ 5 MCG/KG/MIN 1.2 mls/hr IV.CONT TITRATE PRN Rx#:[id number] Sodium Bicarbonate 8.4% Inj 150 1000 / 1000 MEQ In Sterile Water for Inj 850 ML @ 75 mls/hr IV.CONT . [id number] GEOFF Rx#:[id number] Zosyn 2.25 GM Premix 50 ML @ 100 / 100 50 / 50 100 mls/hr IV.SIG Q8H [facility] Rx#: [id number] Oral 0 / 0 0 / 0 Output: Urine Amount (Catheter) 500 / 500 200 / 200 Indwelling Urethral Catheter 500 / 500 200 / 200 Other: # Bowel Movements 0 0 Result Diagrams: 12/27/17 04:30 12/27/17 04:30 Objective Remarks: GENERAL: Elderly female, frail, thin, poorly nourished, intubated, sedated with propofol SKIN: Poor turgor, warm/dry. HEAD: Atraumatic. Normocephalic. EYES: Right pupil postsurgical changes, left pupil 3 mm, responsive. No scleral icterus. ENT: Endotracheal tube present atraumatic, mucous membrane dry NECK: Trachea midline. No JVD. CARDIOVASCULAR: Systolic murmur along the left sternal border, marginally hypotensive. RESPIRATORY: Coarse bilateral posterior breath sounds, bilateral crackles. Bilateral expiratory wheezing. Right upper chest [id number] in place GASTROINTESTINAL: Abdomen soft, nondistended. Left lower quadrant has what appears to be a subcutaneous pump MUSCULOSKELETAL: No obvious deformities. No clubbing. No cyanosis. No edema. NEUROLOGICAL: Intubated sedated encephalopathic but waking up. Moving all extremities intermittently following commands. No obvious focal deficits Assessment and Plan - Problem List (1) Acute hypoxemic respiratory failure Code(s): J96.01 - Acute respiratory failure with hypoxia Status: Acute (2) Acute metabolic encephalopathy Code(s): G93.41 - Metabolic encephalopathy Status: Acute (3) Pulmonary edema Code(s): J81.1 - Chronic pulmonary edema Status: Acute (4) CHF exacerbation Code(s): I50.9 - Heart failure, unspecified Status: Acute (5) Healthcare-associated pneumonia Code(s): J18.9 - Pneumonia, unspecified organism Status: Acute (6) Acute kidney injury superimposed on chronic kidney disease Code(s): N17.9 - Acute kidney failure, unspecified; N18.9 - Chronic kidney disease, unspecified Status: Acute (7) Dehydration Code(s): E86.0 - Dehydration Status: Acute (8) Seizure Code(s): R56.9 - Unspecified convulsions Status: Acute (9) Hypotension Code(s): I95.9 - Hypotension, unspecified Status: Acute (10) Chronic kidney disease Code(s): N18.9 - Chronic kidney disease, unspecified Status: Chronic (11) Hypertension Code(s): I10 - Essential (primary) hypertension Status: Chronic (12) History of congestive heart failure Code(s): Z86.79 - Personal history of other diseases of the circulatory system Status: Chronic - Assessment and Plan Plan: NEURO: Acute metabolic encephalopathy Probable seizure -Propofol and as needed fentanyl for sedation and ventilator synchrony -Start daily sedation vacation -CT of the head negative for acute hemorrhage or infarct -EEG did not show evidence of seizures RESP: Acute hypoxemic respiratory failure-improving Healthcare associated pneumonia COPD exacerbation Pulmonary edema History of multiple pulmonary nodules -PRVC/AC, Ventilator bundle -DuoNeb every 6 hours scheduled and as needed -IV Solu-Medrol 40 mg every 8 hours -Broad-spectrum antibiotics with Zosyn and received single dose of vancomycin -SBT today -Chest x-ray shows improving pulmonary infiltrates CV: Acute systolic and diastolic heart failure exacerbation Hypotension-resolved Ischemic cardiomyopathy with ejection fraction 40-45% Coronary artery disease status post RI -Due to hypotension patient was resuscitated with normal saline 2 L bolus and maintenance fluid at 84 mL/h due to hypotension -Continue maintenance fluid as her renal function is improving -2 D Echo 12/26 EF 55-60%. Grade II diastolic dysfunction. n. Previous echo in February showed EF 40-45% -Home medications are unknown at this time, continue aspirin 81 mg daily -Pulmonary edema is improving GI: -N.p.o., IV famotidine -Bowel regimen -Start tube feeds with Nepro if not extubated today : Acute on chronic kidney disease -Monitor renal function closely. Olson catheter for accurate intake output in acute renal failure and CHF -Nephrology following, CT abdomen pelvis showed atrophic kidneys indicating chronic kidney disease -Renal failure is slowly improving no indication for dialysis at this time ID: Severe sepsis Healthcare associated pneumonia -Antibiotics with Zosyn, single dose of vancomycin -Blood urine and sputum [id number] HEME: -Monitor CBC, coags, fibrinogen as needed ENDO: -Electrolyte replacement as indicated -Sliding scale insulin PROPH: -Bilateral lower extremity SCDs. Heparin/famotidine LINES: -Utilize peripheral IVs, use [id number] on the right upper chest Level 3
[2017-12-27] MEDS: Insulin NovoLOG Aspart Correctional Sugar Inj SQ SCH ×4 (09:15→23:27)
[2017-12-27] MEDS: Famotidine PF Inj 20 MG/2 ML Vial IV.PUSH SCH ×2 (09:16→23:26)
[2017-12-27] MEDS: Heparin - SQ 10,000 UNITS/ML Vial SQ SCH ×2 (09:16→23:27)
--- NOTE | 2017-12-27 11:15 | P.PNNP ---
Subjective Interval history: On CPAP trial. Moving all extremities. Creatinine improving at 3.08 today. <Bryanna Price - Last Filed: 12/27/17 11:06> Physical Exam Vital signs: Vital Signs 12/26/17 11:45 12/26/17 14:59 12/26/17 15:00 Temperature 97.8 F Pulse Rate 74 77 Respiratory Rate 14 15 19 Blood Pressure 112/62 Pulse Oximetry 100 100 100 12/26/17 15:15 12/26/17 15:30 12/26/17 15:45 Temperature Pulse Rate 75 72 73 Respiratory Rate 30 H 17 18 Blood Pressure 106/61 116/66 113/65 Pulse Oximetry 100 100 100 12/26/17 16:00 12/26/17 16:15 12/26/17 16:30 Temperature 94.8 F L Pulse Rate 79 80 79 Respiratory Rate 19 19 18 Blood Pressure 110/61 104/60 92/55 L Pulse Oximetry 100 100 100 12/26/17 17:45 12/26/17 18:00 12/26/17 18:15 Temperature 94.6 F L 95.0 F L 95.4 F L Pulse Rate 67 69 70 Respiratory Rate 12 13 13 Blood Pressure 94/56 L 97/59 L 100/60 Pulse Oximetry 100 100 100 12/26/17 18:30 12/26/17 18:45 12/26/17 19:00 Temperature 95.9 F L 96.4 F L 97.0 F L Pulse Rate 73 86 84 Respiratory Rate 13 17 16 Blood Pressure 104/57 L 104/63 108/64 Pulse Oximetry 100 100 100 12/26/17 19:15 12/26/17 19:30 12/26/17 19:41 Temperature 97.3 F L 97.5 F L Pulse Rate 83 79 78 Respiratory Rate 14 14 13 Blood Pressure 109/64 107/62 Pulse Oximetry 100 100 100 12/26/17 19:45 12/26/17 20:00 12/26/17 20:15 Temperature 97.9 F 98.1 F 98.2 F Pulse Rate 78 76 77 Respiratory Rate 14 13 13 Blood Pressure 103/58 L 88/53 L 98/56 L Pulse Oximetry 100 100 99 12/26/17 20:30 12/26/17 20:45 12/26/17 21:00 Temperature 98.6 F 98.6 F 98.6 F Pulse Rate 76 73 76 Respiratory Rate 13 16 16 Blood Pressure 100/63 105/58 L 106/54 L Pulse Oximetry 100 100 100 12/26/17 21:15 12/26/17 21:33 12/26/17 21:45 Temperature 98.8 F 99.1 F 99.1 F Pulse Rate 63 58 L 69 Respiratory Rate 13 14 14 Blood Pressure 99/56 L 98/55 L 95/51 L Pulse Oximetry 100 99 100 12/26/17 22:00 12/26/17 22:15 12/26/17 22:30 Temperature 99.3 F 99.3 F 99.5 F Pulse Rate 77 77 75 Respiratory Rate 14 14 14 Blood Pressure 92/50 L 95/52 L 78/51 L Pulse Oximetry 100 100 100 12/26/17 22:32 12/26/17 22:36 12/26/17 22:45 Temperature 99.5 F 99.5 F Pulse Rate 76 87 Respiratory Rate 14 13 18 Blood Pressure 101/57 L 106/63 Pulse Oximetry 100 100 100 12/26/17 23:00 12/26/17 23:15 12/26/17 23:30 Temperature 99.5 F 99.7 F H 99.7 F H Pulse Rate 81 80 76 Respiratory Rate 14 15 15 Blood Pressure 98/60 L 106/55 L 110/58 L Pulse Oximetry 100 99 100 12/26/17 23:46 12/27/17 00:00 12/27/17 00:15 Temperature 99.7 F H 100.0 F H 100.0 F H Pulse Rate 72 80 75 Respiratory Rate 31 H 13 14 Blood Pressure 150/75 H 95/52 L 105/58 L Pulse Oximetry 99 100 100 12/27/17 00:30 12/27/17 00:45 12/27/17 01:00 Temperature 100.0 F H 99.9 F H 99.7 F H Pulse Rate 81 80 79 Respiratory Rate 18 16 15 Blood Pressure 110/62 108/60 107/58 L Pulse Oximetry 100 100 100 12/27/17 01:15 12/27/17 01:30 12/27/17 01:45 Temperature 99.3 F 99.1 F 98.8 F Pulse Rate 79 78 80 Respiratory Rate 15 15 17 Blood Pressure 104/58 L 105/59 L 106/60 Pulse Oximetry 100 100 100 12/27/17 02:00 12/27/17 02:15 12/27/17 02:30 Temperature 98.6 F 98.4 F 98.2 F Pulse Rate 80 75 75 Respiratory Rate 15 14 14 Blood Pressure 112/66 111/63 108/62 Pulse Oximetry 100 100 100 12/27/17 02:45 12/27/17 03:00 12/27/17 03:16 Temperature 97.9 F 98.1 F 97.9 F Pulse Rate 73 90 92 H Respiratory Rate 13 29 H 25 H Blood Pressure 106/62 125/79 114/76 Pulse Oximetry 100 100 100 12/27/17 03:30 12/27/17 03:45 12/27/17 04:00 Temperature 97.7 F 97.5 F L 97.5 F L Pulse Rate 80 86 77 Respiratory Rate 12 17 12 Blood Pressure 120/67 115/62 116/65 Pulse Oximetry 100 100 100 12/27/17 04:04 12/27/17 04:15 12/27/17 04:30 Temperature 97.5 F L 97.3 F L Pulse Rate 76 75 72 Respiratory Rate 12 12 12 Blood Pressure 106/60 102/58 L Pulse Oximetry 100 100 100 12/27/17 07:38 12/27/17 07:39 12/27/17 08:42 Temperature Pulse Rate 92 H Respiratory Rate 15 18 Blood Pressure Pulse Oximetry 100 100 Intake & Output 12/26/17 12/27/17 12/27/17 18:59 06:59 18:59 Intake Total 1200 / 1200 150 / 150 50 / 50 Output Total 500 / 500 200 / 200 Balance 700 / 700 -50 / -50 50 / 50 Weight 46 kg Intake: IV 1200 / 1200 150 / 150 50 / 50 Versed Inj 50 mg In 50 ml @ 2 50 / 50 MG/HR 2 mls/hr IV.CONT TITRATE PRN Rx#:[id number] Diprivan 1000 mg/100 ml Inj 1, 100 / 100 100 / 100 000 mg In 100 ml @ 5 MCG/KG/MIN 1.2 mls/hr IV.CONT TITRATE PRN Rx#:[id number] Sodium Bicarbonate 8.4% Inj 150 1000 / 1000 MEQ In Sterile Water for Inj 850 ML @ 75 mls/hr IV.CONT . [id number] [facility] Rx#:[id number] Zosyn 2.25 GM Premix 50 ML @ 100 / 100 50 / 50 100 mls/hr IV.SIG Q8H [facility] Rx#: [id number] Oral 0 / 0 0 / 0 Output: Urine Amount (Catheter) 500 / 500 200 / 200 Indwelling Urethral Catheter 500 / 500 200 / 200 Other: # Bowel Movements 0 0 Narrative: GENERAL: Elderly female, frail, thin, poorly nourished, intubated SKIN: warm/dry. NECK: Trachea midline. No JVD. CARDIOVASCULAR: Regular rate. Murmur. Left upper chest pacemaker in place RESPIRATORY: Coarse bilateral posterior breath sounds. Right upper chest Infuse -a-Port in place GASTROINTESTINAL: Abdomen soft, flat, and nondistended. GENITOURINARY: Indwelling Oslon catheter MUSCULOSKELETAL: No obvious deformities. No clubbing. No cyanosis. No edema. - Urinary Catheter Management Indwelling Urethral Catheter Cath placed during this visit: yes Reason for continuing: Chronic Urinary Retention Insertion date: 12/26/17 Insertion time: 15:25 <Bryanna Price - Last Filed: 12/27/17 11:06> Vital signs: Vital Signs 12/27/17 11:58 12/27/17 12:00 12/27/17 15:00 Temperature 98 F Pulse Rate 80 93 H Respiratory Rate 12 18 Blood Pressure 120/66 Pulse Oximetry 99 100 12/27/17 16:00 12/27/17 18:52 12/27/17 19:47 Temperature 97.8 F Pulse Rate 86 Respiratory Rate 12 16 18 Blood Pressure 103/58 L Pulse Oximetry 100 100 100 12/27/17 19:52 12/27/17 20:00 12/27/17 23:26 Temperature 96.1 F L Pulse Rate 80 96 H Respiratory Rate 18 24 17 Blood Pressure 128/84 Pulse Oximetry 100 100 12/27/17 23:52 12/28/17 00:00 12/28/17 00:08 Temperature 99.1 F 99.5 F 99.3 F Pulse Rate 100 H 81 81 Respiratory Rate 17 18 17 Blood Pressure 134/63 107/66 108/61 Pulse Oximetry 100 100 100 12/28/17 03:53 12/28/17 04:00 12/28/17 08:05 Temperature 99.1 F Pulse Rate 81 107 H Respiratory Rate 19 23 20 Blood Pressure 192/87 H Pulse Oximetry 100 100 98 Intake & Output 12/27/17 12/28/17 12/28/17 18:59 06:59 18:59 Intake Total 1400 / 1400 360 / 360 Output Total 525 / 525 400 / 400 Balance 875 / 875 -40 / -40 Weight 44 kg Intake: IV 1150 / 1150 150 / 150 Diprivan 1000 mg/100 ml Inj 1, 50 / 50 000 mg In 100 ml @ 5 MCG/KG/MIN 1.2 mls/hr IV.CONT TITRATE PRN Rx#:[id number] Sodium Bicarbonate 8.4% Inj 150 1000 / 1000 MEQ In Sterile Water for Inj 850 ML @ 75 mls/hr IV.CONT . [id number] [facility] Rx#:[id number] Diflucan 100 mg Premix Bag 50 50 / 50 ML @ 50 mls/hr IV.SIG Q24H [facility] Rx#:[id number] Zosyn 2.25 GM Premix 50 ML @ 100 / 100 100 / 100 100 mls/hr IV.SIG Q8H [facility] Rx#: [id number] Oral 250 / 250 Tube Feeding 60 / 60 Intake (Blood Product) Amt 150 / 150 Rbc As-3 Leukoreduced Unit 150 / 150 [id number] Output: Urine Amount (Catheter) 525 / 525 400 / 400 Indwelling Urethral Catheter 525 / 525 400 / 400 Other: # Bowel Movements 0 - Urinary Catheter Management Indwelling Urethral Catheter Cath placed during this visit: no <Arlen Husain Q - Last Filed: 12/28/17 11:03> Assessment and Plan - Assessment (1) Acute kidney injury superimposed on chronic kidney disease Code(s): N17.9 - Acute kidney failure, unspecified; N18.9 - Chronic kidney disease, unspecified Status: Acute Plan: She has underlying stage IV CKD. Patient was hypotensive in the rehab when EMS arrived. Hypotension could have resulted in prerenal azotemia, but could have progressed to ATN. She was on dialysis for almost 2 months last year before we were able to stop dialysis. Again a few weeks ago, she was admitted to [facility] when she was dialyzed a few times before renal function improved and we were able to stop dialysis. Baseline GFR is abut 19-21. Repeated episodes of DONNIE may result in progressive CKD. Plan: Continue indwelling Olson catheter. Avoid nephrotoxic agents. Metabolic acidosis improving, continue IVF Creatinine improving at 3.08 today, with urinary output of 700ml/24 Follow labs and urinary output (2) Pulmonary hypertension Code(s): I27.20 - Pulmonary hypertension, unspecified Status: Acute Plan: On Sildenafil. (3) History of congestive heart failure Code(s): Z86.79 - Personal history of other diseases of the circulatory system Status: Chronic (4) History of permanent cardiac pacemaker placement Code(s): Z95.0 - Presence of cardiac pacemaker Status: Chronic (5) Seizure Code(s): R56.9 - Unspecified convulsions Status: Acute Plan: Etiology: hypoxia or hypoglycemia or other causes. Monitor. (6) Disorder of acid-base balance Code(s): E87.8 - Other disorders of electrolyte and fluid balance, not elsewhere classified Status: Acute Plan: patient has high anion gap metabolic acidosis. Lactic acid is not high. Could be due to renal failure. Improving <Bryanna Price - Last Filed: 12/27/17 11:06> - Assessment (1) Acute kidney injury superimposed on chronic kidney disease Code(s): N17.9 - Acute kidney failure, unspecified; N18.9 - Chronic kidney disease, unspecified Status: Acute Plan: Patient seen and examined, agree with above. Creatinine is better, now 3.0. Follow the urine out put and BMP. (2) Pulmonary hypertension Code(s): I27.20 - Pulmonary hypertension, unspecified Status: Acute (3) History of congestive heart failure Code(s): Z86.79 - Personal history of other diseases of the circulatory system Status: Chronic (4) History of permanent cardiac pacemaker placement Code(s): Z95.0 - Presence of cardiac pacemaker Status: Chronic (5) Seizure Code(s): R56.9 - Unspecified convulsions Status: Acute (6) Disorder of acid-base balance Code(s): E87.8 - Other disorders of electrolyte and fluid balance, not elsewhere classified Status: Acute <Rajeev Husain - Last Filed: 12/28/17 11:03>
[2017-12-27] MEDS ORDERED: Morphine Sulfate Inj 2 MG/ML Vial ONE (13:42)
[2017-12-27] MEDS: Sodium Bicarbonate 8.4% Inj 150 MEQ in Water for Inj, Sterile 850 ML IV.CONT SCH (13:46)
[2017-12-27] MEDS ORDERED: Sodium Chlor 0.9% Inj 250 ML IV.SIG SCH (16:00)
[2017-12-27] MEDS ORDERED: Albumin Human 25% Inj 100 ML IV.SIG ONE (16:00)
[2017-12-27] MEDS ORDERED: Etomidate Inj 40 MG/20 ML Vial IV.PUSH ONE (17:26)
[2017-12-27 17:29] LABS: Troponin I 0.31 ng/mL (0.02-0.05)
[2017-12-27 17:50] LABS: Baso % (Auto) 0.1 % (0.0-2.0); Hematocrit 23.7 % (35.0-46.0); Hemoglobin 8.1 gm/dL (11.6-15.3); Lymph # (Auto) 0.5 th/mm3 (1.0-4.8); Lymph % (Auto) 7.3 % (9.0-44.0); Mean Corpuscular Hemoglobin 32.9 pg (27.0-34.0); Mean Corpuscular Volume 96.8 fL (80.0-100.0); Mean Platelet Volume 9.5 fL (7.0-11.0); Mono # (Auto) 0.1 th/mm3 (0.0-0.9); Mono % (Auto) 1.5 % (0.0-8.0); Neut # (Auto) 6.1 th/mm3 (1.8-7.7); Neut % (Auto) 91.1 % (16.0-70.0); Platelet Count 136 th/mm3 (150-450); Red Blood Count 2.45 mil/mm3 (4.00-5.30); Red Cell Distribution Width 17.4 % (11.6-17.2); White Blood Count 6.7 th/mm3 (4.0-11.0)
[2017-12-27] MEDS ORDERED: Dextrose 50% in Water 50 ML Vial IV.PUSH PRN (18:06)
--- NOTE | 2017-12-27 18:11 | XR ---
EXAM DATE: 12/27/2017 12:00 AM EDT AGE/SEX: 77 years / Female INDICATIONS: Post intubation. CLINICAL DATA: This is the patient's subsequent encounter. Patient reports that signs and symptoms h ave been present for 3 days and indicates a pain score of Nonresponsive. MEDICAL/SURGICAL HISTORY: Non-responsive. Non-responsive. COMPARISON: [facility], CHEST 1V SINGLE AP, 12/27/2017. . FINDINGS: Endotracheal tube tip well above the natalie. Right internal jugular catheter tip in the mid superior vena cava. Cardiac pacer with [address] The heart is enlarged. There is engorgement and indis tinctness of the central bronchopulmonary markings with peribronchial thickening characteristic of pu lmonary edema. The periphery of the lungs are clear. Both hemidiaphragms are well delineated. CONCLUSION: 1. ET tube in good position. 2. Cardiomegaly with moderate severity pulmonary edema. Electronically signed by: Hamzah Stratton MD 12/27/2017 6:10 PM EDT
[2017-12-27 18:50] LABS: Albumin 2.6 g/dL (3.4-5.0); Calcium 7.3 mg/dL (8.5-10.1); Carbon Dioxide 16.7 meq/L (21.0-32.0); Potassium 3.6 meq/L (3.5-5.1); Total Protein 5.2 g/dL (6.4-8.2)
[2017-12-27 20:17] LABS: ABG Base Excess -8.4 mmol/L (-2-2); ABG PCO2 28 mmHg (38-42); ABG PO2 123 mmHG (61-120)
--- NOTE | 2017-12-27 22:29 | XR ---
EXAM DATE: 12/27/2017 12:00 AM EDT AGE/SEX: 77 years / Female INDICATIONS: OG tube placement. CLINICAL DATA: This is the patient's subsequent encounter. Patient reports that signs and symptoms h ave been present for 2 days and indicates a pain score of Nonresponsive. MEDICAL/SURGICAL HISTORY: . Anemia. Cardiovascular disease. . Appendectomy. Pacemaker. Cholec ystectomy. Thyroidectomy. COMPARISON: [facility], CHEST 1V SINGLE AP, 12/27/2017. . FINDINGS: ET tube tip 2.2 cm above the natalie. Interval placement of gastric tube with tip below the hemidiaphr agm, but the side port of the gastric tube 4.7 cm above the left hemidiaphragm. Right central line ti p projects over the distal superior vena cava. The heart is moderately enlarged. Moderate severity pu lmonary edema with indistinctness and engorgement of the central bronchopulmonary markings involving the medial half of both lungs is stable in appearance. CONCLUSION: 1. Gastric tube side-port is 5 cm above the left hemidiaphragm and needs to be advanced. 2. ET tube tip is 2.2 cm above the natalie. 3. Cardiomegaly and pulmonary edema, stable in severity. Electronically signed by: Hamzah Stratton MD 12/27/2017 10:28 PM EDT
[2017-12-28] MEDS: Piperacil/Tazo 2.25 GM Premix 50 ML IV.SIG SCH ×3 (00:02→17:42)
[2017-12-28] MEDS: Insulin NovoLOG Aspart Correctional Sugar Inj SQ SCH ×6 (02:41→23:56)
--- NOTE | 2017-12-28 03:56 | XR ---
EXAM DATE: 12/28/2017 6:00 AM EDT AGE/SEX: 77 years / Female INDICATIONS: Shortness of breath, possible pulmonary disease. CLINICAL DATA: This is the patient's subsequent encounter. Patient reports that signs and symptoms h ave been present for 3 days and indicates a pain score of Nonresponsive. MEDICAL/SURGICAL HISTORY: Anemia. Cardiovascular disease. Appendectomy. Pacemaker. Cholecyst ectomy. Thyroidectomy. COMPARISON: [facility], CHEST 1V SINGLE AP, 12/27/2017. . FINDINGS: The ET tube tip is 2.7 cm from the natalie. The NG tube tip is at the EG junction. The NG tube could b e advanced. There is a right internal jugular Eiyxts-s-Pmeg in place. There is a pacemaker seen in th e left chest. The heart size is normal. There is increased density in the perihilar regions bilateral ly. There is diffuse increased interstitial markings. The heart size is upper limits of normal for si ze. CONCLUSION: Diffuse increased interstitial markings and increased density in the perihilar regions likely from ed abby. This is unchanged. Electronically signed by: Winston Hernandez MD 12/28/2017 3:55 AM EDT
[2017-12-28] MEDS: Chlorhexidine Gluconate 2% 1 Pack (2 Cloths) TOPICAL SCH (05:50)
[2017-12-28] MEDS: MethylPREDNISolone Sod Succinate Inj 40 MG/ML Vial IV.PUSH SCH ×3 (05:50→23:56)
[2017-12-28 06:42] LABS: Hematocrit 25.5 % (35.0-46.0); Hemoglobin 8.7 gm/dL (11.6-15.3); Mean Corpuscular Hemoglobin 32.7 pg (27.0-34.0); Mean Corpuscular Volume 96.2 fL (80.0-100.0); Mean Platelet Volume 9.2 fL (7.0-11.0); Platelet Count 136 th/mm3 (150-450); Red Blood Count 2.65 mil/mm3 (4.00-5.30); Red Cell Distribution Width 17.6 % (11.6-17.2); White Blood Count 8.4 th/mm3 (4.0-11.0)
[2017-12-28 07:20] LABS: Alanine Aminotransferase 14 U/L (10-53); Albumin 2.9 g/dL (3.4-5.0); Alkaline Phosphatase 68 U/L (45-117); Anion Gap 19 meq/L (5-15); Aspartate Aminotransferase 83 U/L (15-37); Blood Urea Nitrogen 72 mg/dL (7-18); Calcium 7.5 mg/dL (8.5-10.1); Carbon Dioxide 21.3 meq/L (21.0-32.0); Chloride 95 meq/L (98-107); Glomerular Filtration Rate 15 mL/min (>89); Glucose,Random 138 mg/dL (74-106); Potassium 3.4 meq/L (3.5-5.1); Sodium 135 meq/L (136-145); Total Protein 5.4 g/dL (6.4-8.2)
[2017-12-28] MEDS ORDERED: Midazolam 50 MG/50 ML Inj 50 MG/50 ML BAG IV.CONT PRN ×2 (09:12→09:20)
[2017-12-28] MEDS: Furosemide Inj 100 MG in Sodium Chlor 0.9% Inj 90 ML IV.CONT SCH ×2 (09:35→20:51)
--- NOTE | 2017-12-28 10:33 | P.DIET ---
Nutritional Evaluation Type of nutrition evaluation: initial Nutrition consult regarding: Tube Feeding Subjective Subjective Comments: Penitentiary Resident Objective - Diagnosis Respiratory Failure, Reported Seizure - Objective [place] body weight: 44 kg % IBW: 104 Body Weight Used for Calculations: Actual (46kg) Energy Needs - Lower Range (kCal/kg): 25 Energy Needs - Upper Range (kCal/kg): 30 Lower Limit kCal/kg (kCals): 1,150 Upper Limit kCal/kg (kCals): 1,380 Lower Limit Protein Factor (Grams per Kg): 0.7 Upper Limit Protein Factor (Grams per Kg): 0.8 Lower Protein Needs (Protein): 32 Upper Protein Needs (Protein): 39 Dietitian Reviewed in Medical Record: Curent medications, Intake & Output, Labs , Medical history, Tube feeding Diet Order: NPO Objective Comments: PMH Includes: CHF, CKD-4(severe), muscle weakness, NSTEMI, COPD Labs include: BUN 72, Creatinine 3.12, estGFR 15, Glucose 138, POC Glucose 170 Meds Include: Pepcid, Novolog, Solumedrol, Propofol -BM Feeding - Current Tube Feeding Tube Feeding Product: Nepro (TF'ing onhold) Assessment Assessment: Pt is at high nutrition risk r/t diagnosis and need for TF'ing. Nephrology note reviewed w/pt currently not receiving hemodialysis; therefore, Rec TF'ing w/ Suplena @ goal rate 30ml/hr to offer 1296 kcal, 32.4g Protein and 531ml free water. Should hemodialysis be initiated, then Rec TF'ing w/Nepro @ goal rate 35ml/hr to offer 1512 kcal, 68g Protein and 611ml free water. Propofol provides some additional kcals(1.1 kcal/ml)when running. Additional Recs r/t Clinical Course. Recommendations: 1. Rec TF'ing w/Suplena @ goal rate 30ml/hr without hemodialysis 2. Rec TF'ing w/Nepro @ goal rate 35ml/hr with hemodialysis 3. Propofol provides some additional kcals(1.1 kcal/ml)when running 4. Additional Recs r/t Clinical Course Dietitian to Monitor: Lab values, Electrolytes, Renal labs, Glucose level, Intake & Output, Tube feeding tolerance, Weight change, Medical course
--- NOTE | 2017-12-28 10:56 | P.PNCC ---
Subjective Subjective Remarks/Hospital Course: Patient brought is a 77-year-old shelter resident with past medical history significant for COPD, history of respiratory failure/hypoxemia, CO in January 2017, paroxysmal atrial fibrillation, congestive heart failure, chronic kidney disease stage IV, chronic anemia and hypertension. Apparently at the shelter nursing developed acute shortness of breath, became unresponsive and hypopneic or apneic, followed by a probable seizure. EMS found patient unresponsive, but with a palpable pulse, Her blood pressure was 57 /31, received fluid resuscitation. Patient was intubated in the emergency department as she remained unresponsive. Patient had multiple hospitalization in the past including for STEMI in January 2017. I evaluated the patient in the ED. ER workup showed a BUN of 80 creatinine of 4 her baseline creatinine is approximately 2, bicarb today was 15.5. ABG showed significant metabolic acidosis and I have requested a lactic acid. A stat EEG had been ordered as patient has no previous history of seizures. I will not start antiepileptic medications at this time. Panculture ordered, start Zosyn for pneumonia. Get CT of the chest abdomen pelvis and head. Nephrology consult requested due to acute worsening of renal failure. Sepsis workup and renal failure workup is ongoing at this time 12/27/17: Remains intubated sedated. FiO2 down to 40%, chest x-ray shows improving infiltrates. Urine output 700 mL in 24 hours. Did not follow commands but moving all extremities. Cultures are pending at this time 12/28/17: Patient tolerated CPAP trial yesterday chest x-ray had improved and was extubated yesterday however late afternoon patient developed severe pulmonary edema and was reintubated for acute respiratory distress. Postintubation chest x-ray showed severe pulmonary edema. Echo shows normal ejection fraction but diastolic dysfunction. Creatinine is 3.2 and urine output is only 900 mL in 24 hours. Give IV Lasix 60 mg x1 and 10 mg/h infusion , along with IV albumin and potassium replacement. Patient may need hemodialysis. Hypotensive currently on 10 mcg/min of Levophed Objective Vital Signs / I&O: Vital Signs 12/27/17 11:58 12/27/17 12:00 12/27/17 15:00 Temperature 98 F Pulse Rate 80 93 H Respiratory Rate 12 18 Blood Pressure 120/66 Pulse Oximetry 99 100 12/27/17 16:00 12/27/17 18:52 12/27/17 19:47 Temperature 97.8 F Pulse Rate 86 Respiratory Rate 12 16 18 Blood Pressure 103/58 L Pulse Oximetry 100 100 100 12/27/17 19:52 12/27/17 20:00 12/27/17 23:26 Temperature 96.1 F L Pulse Rate 80 96 H Respiratory Rate 18 24 17 Blood Pressure 128/84 Pulse Oximetry 100 100 12/27/17 23:52 12/28/17 00:00 12/28/17 00:08 Temperature 99.1 F 99.5 F 99.3 F Pulse Rate 100 H 81 81 Respiratory Rate 17 18 17 Blood Pressure 134/63 107/66 108/61 Pulse Oximetry 100 100 100 12/28/17 03:53 12/28/17 04:00 12/28/17 08:05 Temperature 99.1 F Pulse Rate 81 107 H Respiratory Rate 19 23 20 Blood Pressure 192/87 H Pulse Oximetry 100 100 98 Intake & Output 12/27/17 12/28/17 12/28/17 18:59 06:59 18:59 Intake Total 1400 / 1400 360 / 360 Output Total 525 / 525 400 / 400 Balance 875 / 875 -40 / -40 Weight 44 kg Intake: IV 1150 / 1150 150 / 150 Diprivan 1000 mg/100 ml Inj 1, 50 / 50 000 mg In 100 ml @ 5 MCG/KG/MIN 1.2 mls/hr IV.CONT TITRATE PRN Rx#:[id number] Sodium Bicarbonate 8.4% Inj 150 1000 / 1000 MEQ In Sterile Water for Inj 850 ML @ 75 mls/hr IV.CONT . [id number] [facility] Rx#:[id number] Diflucan 100 mg Premix Bag 50 50 / 50 ML @ 50 mls/hr IV.SIG Q24H [facility] Rx#:[id number] Zosyn 2.25 GM Premix 50 ML @ 100 / 100 100 / 100 100 mls/hr IV.SIG Q8H [facility] Rx#: [id number] Oral 250 / 250 Tube Feeding 60 / 60 Intake (Blood Product) Amt 150 / 150 Rbc As-3 Leukoreduced Unit 150 / 150 [id number] Output: Urine Amount (Catheter) 525 / 525 400 / 400 Indwelling Urethral Catheter 525 / 525 400 / 400 Other: # Bowel Movements 0 Result Diagrams: 12/28/17 05:09 12/28/17 05:09 Objective Remarks: GENERAL: Elderly female, frail, thin, poorly nourished, intubated, sedated with propofol SKIN: Poor turgor, warm/dry. HEAD: Atraumatic. Normocephalic. EYES: Right pupil postsurgical changes, left pupil 3 mm, responsive. No scleral icterus. ENT: Endotracheal tube present atraumatic, mucous membrane dry NECK: Trachea midline. No JVD. CARDIOVASCULAR: Systolic murmur along the left sternal border, hypotensive on Levophed. RESPIRATORY: Coarse bilateral posterior breath sounds, bilateral crackles. Bilateral expiratory wheezing. Right upper chest Llrtwd-d-Zfww in place. Pacemaker in place GASTROINTESTINAL: Abdomen soft, nondistended. Left lower quadrant morphine pump MUSCULOSKELETAL: No obvious deformities. No clubbing. No cyanosis. No edema. NEUROLOGICAL: Intubated sedated encephalopathic. Moving all extremities intermittently following commands. Not following commands while on sedation Assessment and Plan - Problem List (1) Acute hypoxemic respiratory failure Code(s): J96.01 - Acute respiratory failure with hypoxia Status: Acute (2) Acute metabolic encephalopathy Code(s): G93.41 - Metabolic encephalopathy Status: Acute (3) Pulmonary edema Code(s): J81.1 - Chronic pulmonary edema Status: Acute (4) CHF exacerbation Code(s): I50.9 - Heart failure, unspecified Status: Acute (5) Healthcare-associated pneumonia Code(s): J18.9 - Pneumonia, unspecified organism Status: Acute (6) Acute kidney injury superimposed on chronic kidney disease Code(s): N17.9 - Acute kidney failure, unspecified; N18.9 - Chronic kidney disease, unspecified Status: Acute (7) Dehydration Code(s): E86.0 - Dehydration Status: Acute (8) Seizure Code(s): R56.9 - Unspecified convulsions Status: Acute (9) Hypotension Code(s): I95.9 - Hypotension, unspecified Status: Acute (10) Chronic kidney disease Code(s): N18.9 - Chronic kidney disease, unspecified Status: Chronic (11) Hypertension Code(s): I10 - Essential (primary) hypertension Status: Chronic (12) History of congestive heart failure Code(s): Z86.79 - Personal history of other diseases of the circulatory system Status: Chronic - Assessment and Plan Plan: NEURO: Acute metabolic encephalopathy Probable seizure -Propofol and Versed for sedation and ventilator synchrony -No sedation vacation due to hemodynamic instability -CT of the head negative for acute hemorrhage or infarct -EEG did not show evidence of seizures RESP: Acute hypoxemic respiratory failure Severe pulmonary edema Healthcare associated pneumonia COPD exacerbation Pulmonary edema History of multiple pulmonary nodules -PRVC/AC, Ventilator bundle -Extubated yesterday 12/28/2017 need reintubation after several hours due to severe pulmonary edema -DuoNeb every 6 hours scheduled and as needed -IV Solu-Medrol 40 mg every 8 hours -Broad-spectrum antibiotics with Zosyn and received single dose of vancomycin -Chest x-ray shows improving pulmonary infiltrates CV: Acute systolic and diastolic heart failure exacerbation Severe pulmonary edema Mixed cardiogenic and septic shock Ischemic cardiomyopathy with ejection fraction 40-45% Coronary artery disease status post CO -Levophed to keep map above 65 -IV Lasix 60 mg x1 and 10 mg/h infusion -IV albumin 25 g every 12 -Consider hemodialysis for fluid removal -2 D Echo 12/26 EF 55-60%. Grade II diastolic dysfunction. Previous echo in February showed EF 40-45% -Continue aspirin 81 mg daily GI: -N.p.o., IV famotidine. Start tube feeds with Nepro -Bowel regimen : Acute on chronic kidney disease -Monitor renal function closely. Olson catheter for accurate intake output in acute renal failure and CHF -Nephrology following, CT abdomen pelvis showed atrophic kidneys indicating chronic kidney disease -Lasix IV push 80 mg followed by infusion at 10 mg/h with potassium replacement ID: Septic shock Healthcare associated pneumonia present on admission Cesilia UTI present on admission -Antibiotics with Zosyn, single dose of vancomycin -Blood urine and sputum ebavgchg-wheume-[id number], yeast growing in urine, GNR and sputum HEME: -Monitor CBC, coags, fibrinogen as needed ENDO: -Electrolyte replacement as indicated -Sliding scale insulin PROPH: -Bilateral lower extremity SCDs. Heparin/famotidine LINES: -Utilize peripheral IVs, use [id number] on the right upper chest CCT 45 MIN
--- NOTE | 2017-12-28 11:04 | P.PNNP ---
Subjective Interval history: Patient remain on the vent. and clinically same. Physical Exam Vital signs: Vital Signs 12/27/17 11:58 12/27/17 12:00 12/27/17 15:00 Temperature 98 F Pulse Rate 80 93 H Respiratory Rate 12 18 Blood Pressure 120/66 Pulse Oximetry 99 100 12/27/17 16:00 12/27/17 18:52 12/27/17 19:47 Temperature 97.8 F Pulse Rate 86 Respiratory Rate 12 16 18 Blood Pressure 103/58 L Pulse Oximetry 100 100 100 12/27/17 19:52 12/27/17 20:00 12/27/17 23:26 Temperature 96.1 F L Pulse Rate 80 96 H Respiratory Rate 18 24 17 Blood Pressure 128/84 Pulse Oximetry 100 100 12/27/17 23:52 12/28/17 00:00 12/28/17 00:08 Temperature 99.1 F 99.5 F 99.3 F Pulse Rate 100 H 81 81 Respiratory Rate 17 18 17 Blood Pressure 134/63 107/66 108/61 Pulse Oximetry 100 100 100 12/28/17 03:53 12/28/17 04:00 12/28/17 08:05 Temperature 99.1 F Pulse Rate 81 107 H Respiratory Rate 19 23 20 Blood Pressure 192/87 H Pulse Oximetry 100 100 98 Intake & Output 12/27/17 12/28/17 12/28/17 18:59 06:59 18:59 Intake Total 1400 / 1400 360 / 360 Output Total 525 / 525 400 / 400 Balance 875 / 875 -40 / -40 Weight 44 kg Intake: IV 1150 / 1150 150 / 150 Diprivan 1000 mg/100 ml Inj 1, 50 / 50 000 mg In 100 ml @ 5 MCG/KG/MIN 1.2 mls/hr IV.CONT TITRATE PRN Rx#:[id number] Sodium Bicarbonate 8.4% Inj 150 1000 / 1000 MEQ In Sterile Water for Inj 850 ML @ 75 mls/hr IV.CONT . [id number] GEOFF Rx#:[id number] Diflucan 100 mg Premix Bag 50 50 / 50 ML @ 50 mls/hr IV.SIG Q24H GEOFF Rx#:[id number] Zosyn 2.25 GM Premix 50 ML @ 100 / 100 100 / 100 100 mls/hr IV.SIG Q8H GEOFF Rx#: [id number] Oral 250 / 250 Tube Feeding 60 / 60 Intake (Blood Product) Amt 150 / 150 Rbc As-3 Leukoreduced Unit 150 / 150 [id number] Output: Urine Amount (Catheter) 525 / 525 400 / 400 Indwelling Urethral Catheter 525 / 525 400 / 400 Other: # Bowel Movements 0 Narrative: GENERAL: Elderly female, frail, thin, poorly nourished, intubated SKIN: warm/dry. NECK: Trachea midline. No JVD. CARDIOVASCULAR: Regular rate. Murmur. Left upper chest pacemaker in place RESPIRATORY: Coarse bilateral posterior breath sounds. Right upper chest Infuse -a-Port in place GASTROINTESTINAL: Abdomen soft, flat, and nondistended. GENITOURINARY: Indwelling Olson catheter MUSCULOSKELETAL: No obvious deformities. No clubbing. No cyanosis. Moderate edema. - Urinary Catheter Management Indwelling Urethral Catheter Cath placed during this visit: yes Reason for continuing: Chronic Urinary Retention Insertion date: 12/26/17 Insertion time: 15:25 Assessment and Plan - Assessment (1) Acute kidney injury superimposed on chronic kidney disease Code(s): N17.9 - Acute kidney failure, unspecified; N18.9 - Chronic kidney disease, unspecified Status: Acute Plan: (1) Acute kidney injury superimposed on chronic kidney disease Code(s): N17.9 - Acute kidney failure, unspecified; N18.9 - Chronic kidney disease, unspecified Status: Acute Plan: She has underlying stage IV CKD. Patient was hypotensive in the rehab when EMS arrived. Hypotension could have resulted in prerenal azotemia, but could have progressed to ATN. She was on dialysis for almost 2 months last year before we were able to stop dialysis. Again a few weeks ago, she was admitted to [facility] when she was dialyzed a few times before renal function improved and we were able to stop dialysis. Baseline GFR is abut 19-21. Repeated episodes of DONNIE may result in progressive CKD. Plan: Continue indwelling Olson catheter. Avoid nephrotoxic agents. Metabolic acidosis improving, continue IVF Creatinine is still same 3.0-3.1. Urine out put is low, started on Lasix infusion. D/W the . (2) Pulmonary hypertension Code(s): I27.20 - Pulmonary hypertension, unspecified Status: Acute Plan: On Sildenafil. (3) History of congestive heart failure Code(s): Z86.79 - Personal history of other diseases of the circulatory system Status: Chronic (4) History of permanent cardiac pacemaker placement Code(s): Z95.0 - Presence of cardiac pacemaker Status: Chronic (5) Seizure Code(s): R56.9 - Unspecified convulsions Status: Acute Plan: Etiology: hypoxia or hypoglycemia or other causes. Monitor. (6) Disorder of acid-base balance Code(s): E87.8 - Other disorders of electrolyte and fluid balance, not elsewhere classified Status: Acute Plan: patient has high anion gap metabolic acidosis. Lactic acid is not high. Could be due to renal failure. Improving. (2) Pulmonary hypertension Code(s): I27.20 - Pulmonary hypertension, unspecified Status: Acute Plan: On Sildenafil. (3) History of congestive heart failure Code(s): Z86.79 - Personal history of other diseases of the circulatory system Status: Chronic (4) History of permanent cardiac pacemaker placement Code(s): Z95.0 - Presence of cardiac pacemaker Status: Chronic (5) Seizure Code(s): R56.9 - Unspecified convulsions Status: Acute Plan: Etiology: hypoxia or hypoglycemia or other causes. Monitor. (6) Disorder of acid-base balance Code(s): E87.8 - Other disorders of electrolyte and fluid balance, not elsewhere classified Status: Acute Plan: patient has high anion gap metabolic acidosis. Lactic acid is not high. Could be due to renal failure. Improving
[2017-12-28] MEDS: Heparin - SQ 10,000 UNITS/ML Vial SQ SCH (11:40)
[2017-12-28] MEDS: Potassium Chloride 25 MEQ Effervescent Tablet NG/OG SCH ×2 (11:41→20:52)
[2017-12-28] MEDS: Albumin Human 25% Inj 100 ML IV.SIG SCH (11:42)
[2017-12-28] MEDS: Famotidine PF Inj 20 MG/2 ML Vial IV.PUSH SCH ×2 (11:46→20:52)
[2017-12-28] MEDS ORDERED: Heparin Drip 25,000 UNIT/250 ML BAG IV.CONT PRN (13:00)
--- NOTE | 2017-12-28 14:48 | P.PCN ---
Date of procedure: 12/28/17 Pre-op diagnosis: Septic shock Post-op diagnosis: same Procedure: Ultrasound-guided left IJ central line Informed consent obtained from Central line checklist completed, timeout completed. I wore a surgical cap, mask with protective eyewear, full gown and sterile gloves throughout the procedure. Left IJ region was prepped using chlorhexidine scrub and draped in sterile fashion. The left IJ was identified using the ultrasound. Anesthesia was achieved over the vein using 1% lidocaine. The introducer needle was inserted into the left IJ under direct ultrasound visualization. Venous blood was withdrawn. The syringe was removed and a guidewire was advanced into the introducer needle. Guide wire required manipulation few times due to pacemaker wires. A small incision was made at the skin surface with a scalpel and the introducer needle was exchanged for a dilator over the guidewire. After appropriate dilation was obtained, the dilator was exchanged over the wire for a triple lumen, 7F, antibiotic coated central venous catheter. The wire was removed and the catheter was secured at 19 cm with a StatLock. A sterile central line dressing was placed over the catheter at the insertion site. The patient tolerated the procedure without any hemodynamic compromise. At time of procedure completion, all ports aspirated and flushed properly. Post-procedure chest x-ray is pending at this time. Anesthesia: local Surgeon: Mary Montero Estimated blood loss (mL): 3 Pathology: none sent Condition: critical Disposition: ICU
--- NOTE | 2017-12-28 15:25 | XR ---
EXAM DATE: 12/28/2017 2:41 PM EDT AGE/SEX: 77 years / Female INDICATIONS: Left sided central line placement. CLINICAL DATA: This is the patient's initial encounter. Patient reports that signs and symptoms have been present for 1 day and indicates a pain score of Nonresponsive. MEDICAL/SURGICAL HISTORY: . Anemia. Cardiovascular disease. Appendectomy. Pacemaker. Cholecyste ctomy. Thyroidectomy. . COMPARISON: . FINDINGS: There is a left-sided central venous catheter in place. The catheter tip overlies the SVC. There is a n Krihjc-s-Sjnb in place on the right. The heart is mildly enlarged. There is diffuse interstitial infiltrate and small bilateral effusions suggesting congestive failure. The ET tube is in good position. There is a nasogastric tube present. CONCLUSION: New left IJ central line in good position with no evidence of pneumothorax. Electronically signed by: Duy Chen MD 12/28/2017 3:24 PM EDT
[2017-12-28 15:50] LABS: Hematocrit 27.1 % (35.0-46.0); Mean Corpuscular HGB Conc 33.2 % (32.0-36.0); Mean Corpuscular Hemoglobin 32.2 pg (27.0-34.0); Mean Platelet Volume 8.8 fL (7.0-11.0); Platelet Count 125 th/mm3 (150-450); Red Blood Count 2.79 mil/mm3 (4.00-5.30); Red Cell Distribution Width 17.7 % (11.6-17.2); White Blood Count 10.3 th/mm3 (4.0-11.0)
[2017-12-28 16:00] LABS: Activated Partial Thrombo Time 40.6 sec (24.3-30.1); INR 1.2 Ratio; Prothrombin Time 12.6 sec (9.8-11.6)
[2017-12-28] MEDS: Propofol 1000 mg/100 ml Inj 1,000 MG/100 ML BOTTLE IV.CONT PRN (19:00)
[2017-12-28] MEDS: Vasopressin Inj 40 UNIT in Sodium Chlor 0.9% Inj 98 ML IV.CONT SCH (19:00)
[2017-12-29] MEDS: Piperacil/Tazo 2.25 GM Premix 50 ML IV.SIG SCH ×3 (00:01→16:22)
[2017-12-29] MEDS: Albumin Human 25% Inj 100 ML IV.SIG SCH ×2 (00:01→10:01)
[2017-12-29] MEDS: Insulin NovoLOG Aspart Correctional Sugar Inj SQ SCH ×5 (02:09→17:37)
--- NOTE | 2017-12-29 04:23 | XR ---
EXAM DATE: 12/29/2017 6:00 AM EDT AGE/SEX: 77 years / Female INDICATIONS: Shortness of breath, possible pulmonary disease. CLINICAL DATA: This is the patient's subsequent encounter. Patient reports that signs and symptoms h ave been present for 4 - 6 days and indicates a pain score of Nonresponsive. MEDICAL/SURGICAL HISTORY: Anemia. Cardiovascular disease. Appendectomy. Pacemaker. Cholecyst ectomy. Thyroidectomy. COMPARISON: [facility] [place], CHEST 1V SINGLE AP, 12/28/2017. . FINDINGS: Stable ETT, left subclavian central line, right IJ Nakyuq-g-Ccbt. Progressive patchy diffuse airspace and interstitial opacities. Persistent mild bibasilar airspace disease. Cardiomediastinal contours a re stable. Pulmonary vascularity is prominent. Remainder of exam is unchanged. CONCLUSION: 1. Stable tubes and lines, as above. 2. Worsening pulmonary edema pattern. Electronically signed by: Madhu Draper MD 12/29/2017 4:22 AM EDT
[2017-12-29] MEDS: Chlorhexidine Gluconate 2% 1 Pack (2 Cloths) TOPICAL SCH (05:24)
[2017-12-29] MEDS: MethylPREDNISolone Sod Succinate Inj 40 MG/ML Vial IV.PUSH SCH ×2 (06:02→13:01)
[2017-12-29] MEDS: Furosemide Inj 100 MG in Sodium Chlor 0.9% Inj 90 ML IV.CONT SCH ×2 (06:55→16:22)
--- NOTE | 2017-12-29 07:23 | P.PNCC ---
Subjective Subjective Remarks/Hospital Course: Patient brought is a 77-year-old intermediate resident with past medical history significant for COPD, history of respiratory failure/hypoxemia, IA in January 2017, paroxysmal atrial fibrillation, congestive heart failure, chronic kidney disease stage IV, chronic anemia and hypertension. Apparently at the intermediate nursing developed acute shortness of breath, became unresponsive and hypopneic or apneic, followed by a probable seizure. EMS found patient unresponsive, but with a palpable pulse, Her blood pressure was 57 /31, received fluid resuscitation. Patient was intubated in the emergency department as she remained unresponsive. Patient had multiple hospitalization in the past including for STEMI in January 2017. I evaluated the patient in the ED. ER workup showed a BUN of 80 creatinine of 4 her baseline creatinine is approximately 2, bicarb today was 15.5. ABG showed significant metabolic acidosis and I have requested a lactic acid. A stat EEG had been ordered as patient has no previous history of seizures. I will not start antiepileptic medications at this time. Panculture ordered, start Zosyn for pneumonia. Get CT of the chest abdomen pelvis and head. Nephrology consult requested due to acute worsening of renal failure. Sepsis workup and renal failure workup is ongoing at this time 12/27/17: Remains intubated sedated. FiO2 down to 40%, chest x-ray shows improving infiltrates. Urine output 700 mL in 24 hours. Did not follow commands but moving all extremities. Cultures are pending at this time 12/28/17: Patient tolerated CPAP trial yesterday chest x-ray had improved and was extubated yesterday however late afternoon patient developed severe pulmonary edema and was reintubated for acute respiratory distress. Postintubation chest x-ray showed severe pulmonary edema. Echo shows normal ejection fraction but diastolic dysfunction. Creatinine is 3.2 and urine output is only 900 mL in 24 hours. Give IV Lasix 60 mg x1 and 10 mg/h infusion , along with IV albumin and potassium replacement. Patient may need hemodialysis. Hypotensive currently on 10 mcg/min of Levophed 12/29/17: Remains very critical, in profound shock on 12 mcg/min of Levophed, and vasopressin 0.04 international units. Almost anuric only made 100 mL of urine last 12 hours on Lasix drip 15 mg/h. Troponin bumped to 11 yesterday and was started on IV heparin. Patient at this time is very critically ill and prognosis very poor Objective Vital Signs / I&O: Vital Signs 12/28/17 08:00 12/28/17 08:05 12/28/17 11:11 Temperature Pulse Rate 100 H Respiratory Rate 20 16 Blood Pressure Pulse Oximetry 98 97 12/28/17 12:00 12/28/17 14:02 12/28/17 15:31 Temperature Pulse Rate 100 H 91 H Respiratory Rate 18 20 Blood Pressure Pulse Oximetry 97 12/28/17 19:54 12/28/17 20:00 12/28/17 20:32 Temperature 98.2 F Pulse Rate 79 80 Respiratory Rate 17 18 17 Blood Pressure 100/64 Pulse Oximetry 94 L 94 L 12/29/17 00:00 12/29/17 00:06 12/29/17 03:53 Temperature 97.5 F L Pulse Rate 82 66 Respiratory Rate 16 16 18 Blood Pressure 111/72 Pulse Oximetry 94 L 94 L 12/29/17 03:56 12/29/17 04:00 Temperature 98.8 F Pulse Rate 66 Respiratory Rate 18 18 Blood Pressure 118/71 Pulse Oximetry 95 93 L Intake & Output 12/28/17 12/29/17 12/29/17 18:59 06:59 18:59 Intake Total 800 / 800 1718 / 1718 Output Total 200 / 200 Balance 800 / 800 1518 / 1518 Weight 44.5 kg Intake: IV 800 / 800 1200 / 1200 Lasix Inj 100 MG In NS Inj 90 200 / 200 ML @ 10 mls/hr IV.CONT .Q10H GEOFF Rx#:[id number] Diprivan 1000 mg/100 ml Inj 1, 100 / 100 000 mg In 100 ml @ 5 MCG/KG/MIN 1.2 mls/hr IV.CONT TITRATE PRN Rx#:[id number] Flexbumin 25% Inj 100 ML @ 60 100 / 100 100 / 100 mls/hr IV.SIG Q12H GEOFF Rx#: [id number] Diflucan 100 mg Premix Bag 50 50 / 50 ML @ 50 mls/hr IV.SIG Q24H GEOFF Rx#:[id number] Zyvox 600 mg Premix 300 ML @ 300 / 300 300 mls/hr IV.SIG Q12H GEOFF Rx#: [id number] Levophed-Dextrose 4 mg/250 ml 250 / 250 500 / 500 Drip 4 mg In 250 ml @ 2 MCG/MIN 7.5 mls/hr IV.SIG TITRATE PRN Rx#:[id number] Zosyn 2.25 GM Premix 50 ML @ 50 / 50 100 / 100 100 mls/hr IV.SIG Q8H GEOFF Rx#: [id number] Tube Feeding 418 / 418 Water Bolus Amount 100 / 100 Output: Urine Amount (Catheter) 200 / 200 Indwelling Urethral Catheter 200 / 200 Other: Date of Last Bowel Movement 12/28/17 Result Diagrams: 12/28/17 15:27 12/28/17 05:09 Objective Remarks: GENERAL: Elderly female, frail, thin, poorly nourished, intubated, sedated with propofol and versed. Currently on Levophed and vasopressin SKIN: Poor turgor, warm/dry. HEAD: Atraumatic. Normocephalic. EYES: Right pupil postsurgical changes, left pupil 3 mm, responsive. No scleral icterus. ENT: Endotracheal tube present atraumatic, mucous membrane dry NECK: Trachea midline. No JVD. Previous tracheostomy scar well-healed CARDIOVASCULAR: Systolic murmur along the left sternal border, hypotensive on Levophed, and vasopressin RESPIRATORY: Coarse bilateral posterior breath sounds, bilateral crackles. Bilateral expiratory wheezing. Right upper chest Imlbbv-i-Gxmz in place. Left chest pacemaker in place GASTROINTESTINAL: Abdomen soft, nondistended. Left lower quadrant morphine pump MUSCULOSKELETAL: No obvious deformities. No clubbing. No cyanosis. No edema. NEUROLOGICAL: Intubated sedated encephalopathic. Not following commands while on sedation. Heavily sedated for vent synchrony Assessment and Plan - Problem List (1) Acute hypoxemic respiratory failure Code(s): J96.01 - Status: Acute (2) Acute metabolic encephalopathy Code(s): G93.41 - Status: Acute (3) Pulmonary edema Code(s): J81.1 - Status: Acute (4) CHF exacerbation Code(s): I50.9 - Status: Acute (5) Healthcare-associated pneumonia Code(s): J18.9 - Status: Acute (6) Acute kidney injury superimposed on chronic kidney disease Code(s): N17.9 - ; N18.9 - Status: Acute (7) Dehydration Code(s): E86.0 - Status: Acute (8) Seizure Code(s): R56.9 - Status: Acute (9) Hypotension Code(s): I95.9 - Status: Acute (10) Chronic kidney disease Code(s): N18.9 - Status: Chronic (11) Hypertension Code(s): I10 - Status: Chronic (12) History of congestive heart failure Code(s): Z86.79 - Status: Chronic - Assessment and Plan Plan: NEURO: Acute metabolic encephalopathy Probable seizure -Propofol and Versed for sedation and ventilator synchrony -No sedation vacation due to hemodynamic instability -CT of the head negative for acute hemorrhage or infarct -EEG did not show evidence of seizures RESP: Acute hypoxemic respiratory failure Severe pulmonary edema Healthcare associated pneumonia (MRSA, Klebsiella) Acute COPD exacerbation History of multiple pulmonary nodules -PRVC/AC, Ventilator bundle -Extubated 12/28/2017 need reintubation after several hours due to severe pulmonary edema -DuoNeb every 6 hours scheduled and as needed -IV Solu-Medrol 40 mg every 8 hours -Broad-spectrum antibiotics with Zosyn and Zyvox -Chest x-ray shows severe pulmonary infiltrates CV: Acute systolic and diastolic heart failure exacerbation NSTEMI Severe pulmonary edema Cardiogenic and septic shock Diastolic dysfunction Ischemic cardiomyopathy with ejection fraction 40-45% Coronary artery disease status post IA -Levophed and vasopressin to keep map above 65-requiring high doses -IV heparin and aspirin for acute IA. Appreciate cardiology consult not a candidate for cardiac catheterization -IV Lasix 15 mg/h infusion with no response, patient remains anuric -IV albumin 25 g every 12 -Discussed with nephrology Dr. Shipman. Patient is hemodynamically very unstable for hemodialysis or even CVVH -2 D Echo 12/26 EF 55-60%. Grade II diastolic dysfunction. Previous echo in February showed EF 40-45% GI: -N.p.o., IV famotidine. Was on tube feeds with Nepro-hold -Bowel regimen : Acute on chronic kidney disease -Maintain Olson catheter for accurate intake output in acute renal failure and CHF, anuria on Lasix drip -Hemodynamically very unstable to initiate HD or CVVH -Nephrology following, CT abdomen pelvis showed atrophic kidneys indicating chronic kidney disease -Discussed with nephrology ID: Septic shock Healthcare associated pneumonia present on admission Cesilia UTI present on admission -Antibiotics with Zosyn, Zyvox received single dose of vancomycin. Continue Diflucan -Blood urine and sputum [id number], Cesilia tropicalis growing in urine , Klebsiella and MRSA in sputum HEME: -Monitor CBC, coags, fibrinogen as needed ENDO: -Electrolyte replacement as indicated -Sliding scale insulin PROPH: -Bilateral lower extremity SCDs. IV Heparin/famotidine LINES: -Utilize peripheral IVs, use Nmcifq-p-Xyml on the right upper chest -LIJ central line placed 12/28/17 CCT 55 MIN Patient remains very critical with guarded prognosis. Her care is complicated by severe refractory pulmonary edema, severe hypoxemic respiratory failure, cardiogenic shock, septic shock, acute myocardial infarction, and now with acute anuric renal failure. She is also severely septic from MRSA and Klebsiella pneumonia. Her prognosis is very poor. I will discuss with palliative care to address CODE STATUS and goals of care again.
[2017-12-29 07:52] LABS: Alanine Aminotransferase 490 U/L (10-53); Albumin 3.3 g/dL (3.4-5.0); Alkaline Phosphatase 135 U/L (45-117); Anion Gap 23 meq/L (5-15); Aspartate Aminotransferase 1562 U/L (15-37); Blood Urea Nitrogen 80 mg/dL (7-18); Calcium 7.5 mg/dL (8.5-10.1); Carbon Dioxide 13.2 meq/L (21.0-32.0); Chloride 91 meq/L (98-107); Glomerular Filtration Rate 12 mL/min (>89); Glucose,Random 178 mg/dL (74-106); Potassium 5.2 meq/L (3.5-5.1); Sodium 127 meq/L (136-145); Total Protein 5.5 g/dL (6.4-8.2)
[2017-12-29] MEDS: Famotidine PF Inj 20 MG/2 ML Vial IV.PUSH SCH (08:07)
[2017-12-29] MEDS: Potassium Chloride 25 MEQ Effervescent Tablet NG/OG SCH (08:12)
[2017-12-29] MEDS: Vasopressin Inj 40 UNIT in Sodium Chlor 0.9% Inj 98 ML IV.CONT SCH (09:56)
--- NOTE | 2017-12-29 10:21 | P.PNCA ---
Subjective Interval history: remains critically ill, on pressors. Urine output has not improved greatly. Medications and Allergies Active Medications: Active Medications Acetaminophen (Tylenol) 650 mg PO Q6H PRN PRN Reason: PAIN 1-10 AND/OR FEVER >101F Albuterol (Duoneb Neb (Yue)) 1 ampul NEB Q6HR NEB [facility] Last Admin: 12/29/17 08:50 Dose: 1 ampul Albuterol (Duoneb Neb (Prn)) 1 ampul NEB Q4HR NEB PRN PRN Reason: SHORTNESS OF BREATH Aspirin (Aspirin Chew) 81 mg PO DAILY [facility] Last Admin: 12/29/17 08:07 Dose: 81 mg Chlorhexidine Gluconate (Chlorhexidine 2% Cloth) 3 pack TOPICAL DAILY@0400 [facility]UE Stop: 01/01/18 03:59 Last Admin: 12/29/17 05:24 Dose: 3 pack Chlorhexidine Gluconate (Chlorhexidine 2% Cloth) 3 pack TOPICAL DAILY@0400 PRN PRN Reason: Extra cloth needed Stop: 01/01/18 03:59 Dextrose (D50w Vial) 50 ml IV.PUSH UNSCH PRN PRN Reason: PER HYPOGLYCEMIA PROTOCOL Famotidine (Pepcid Pf Inj) 10 mg IV.PUSH Q12HR [facility] Last Admin: 12/29/17 08:07 Dose: 10 mg Fentanyl Citrate (Fentanyl Inj) 50 mcg IV.PUSH Q1H PRN PRN Reason: SEE LABEL COMMENTS Glucagon (Glucagon Inj) 1 mg OTHER PRN PRN PRN Reason: for Hypoglycemia Protocol Propofol (Diprivan 1000 Mg/100 Ml Inj) 1,000 mg in 100 mls @ 1.2 mls/hr IV.CONT TITRATE PRN; Protocol PRN Reason: Per Protocol Last Titration: 12/29/17 07:00 Dose: 0 mcg/kg/min, 0 mls/hr Piperacillin/Tazobactam/Dextrose (Zosyn 2.25 Gm Premix) 50 mls @ 100 mls/hr IV.SIG Q8H [facility] Last Admin: 12/29/17 08:11 Dose: 200 mls/hr Fluconazole (Diflucan 100 Mg Premix Bag) 50 mls @ 50 mls/hr IV.SIG Q24H [facility] Last Infusion: 12/29/17 02:10 Dose: Infused Norepinephrine Bitartrate (Levophed-Dextrose 4 Mg/250 Ml Drip) 4 mg in 250 mls @ 7.5 mls/hr IV.SIG TITRATE PRN; Protocol PRN Reason: Per Protocol Last Titration: 12/29/17 07:45 Dose: 10 mcg/min, 37.5 mls/hr Furosemide 100 mg/ Sodium (Chloride) 100 mls @ 10 mls/hr IV.CONT .Q10H [facility] Last Infusion: 12/29/17 07:00 Dose: 10 mls/hr Midazolam HCl (Versed Inj) 50 mg in 50 mls @ 2 mls/hr IV.CONT TITRATE PRN; Protocol PRN Reason: Per Protocol Last Titration: 12/29/17 07:00 Dose: 2 mg/hr, 2 mls/hr Albumin Human (Flexbumin 25% Inj) 100 mls @ 60 mls/hr IV.SIG Q12H [facility] Last Admin: 12/29/17 10:01 Dose: 60 mls/hr Heparin Sodium/Dextrose (Heparin/D5w 25,000 U/250 Ml) 25,000 unit in 250 mls @ 0 mls/hr IV.CONT TITRATE PRN; Protocol PRN Reason: Per Protocol Last Titration: 12/29/17 07:00 Dose: 0 units/hr, 0 mls/hr Vasopressin 40 unit/ Sodium (Chloride) 100 mls @ 6 mls/hr IV.CONT CONT YUE; Protocol Last Admin: 12/29/17 09:56 Dose: 0.04 units/min, 6 mls/hr Linezolid (Zyvox 600 Mg Premix) 300 mls @ 300 mls/hr IV.SIG Q12H [facility] Last Admin: 12/29/17 02:10 Dose: 300 mls/hr Insulin Aspart (Novolog Insulin Correctional Sugar Inj) 0 unit SQ Q4H [facility]UE; Protocol Last Admin: 12/29/17 10:01 Dose: Not Given Lorazepam (Ativan Inj) 1 mg IV.PUSH Q2H PRN PRN Reason: ANXIETY Last Admin: 12/28/17 08:37 Dose: 1 mg Methylprednisolone Sodium Succinate (Solumedrol Inj) 40 mg IV.PUSH Q8HR [facility] Last Admin: 12/29/17 06:02 Dose: 40 mg Potassium Bicarb/Potassium Chloride (K-Lyte Cl Eff) 25 meq NG/OG BID [facility]UE Last Admin: 12/29/17 08:12 Dose: Not Given Sodium Chloride (Ns Flush) 2 ml IV.FLUSH PRN PRN PRN Reason: FLUSH AFTER USING IV ACCESS Terbutaline Sulfate (Brethine Inj) 1 mg SQ UNSCH PRN PRN Reason: For Extravasation Terbutaline Sulfate (Brethine Inj) 1 mg SQ UNSCH PRN PRN Reason: For Extravasation Allergies Allergy/AdvReac Type Severity Reaction Status Date / Time shellfish derived Allergy Unknown Unverified 11/12/16 18:14 Home Medications Medication Instructions Recorded Confirmed Type Pepcid AC See Label Instructions .ROUTE 12/28/17 12/28/17 History .COMPLEX amlodipine 10 mg PO DAILY 12/28/17 12/28/17 History hydralazine 100 mg PO BID 12/28/17 12/28/17 History hydrocodone-acetaminophen 1 tab PO Q4-6H PRN 12/28/17 12/28/17 History ondansetron See Protocol 12/28/17 12/28/17 History ranolazine [Ranexa] 500 mg PO BID 12/28/17 12/28/17 History sodium bicarbonate 650 mg PO Q4-6H PRN 12/28/17 12/28/17 History Physical Exam Vital signs: Vital Signs 12/28/17 11:11 12/28/17 12:00 12/28/17 14:02 Temperature Pulse Rate 100 H 91 H Respiratory Rate 16 18 Blood Pressure Pulse Oximetry 97 12/28/17 15:31 12/28/17 19:54 12/28/17 20:00 Temperature 98.2 F Pulse Rate 79 Respiratory Rate 20 17 18 Blood Pressure 100/64 Pulse Oximetry 97 94 L 94 L 12/28/17 20:32 12/29/17 00:00 12/29/17 00:06 Temperature 97.5 F L Pulse Rate 80 82 Respiratory Rate 17 16 16 Blood Pressure 111/72 Pulse Oximetry 94 L 94 L 12/29/17 03:53 12/29/17 03:56 12/29/17 04:00 Temperature 98.8 F Pulse Rate 66 66 Respiratory Rate 18 18 18 Blood Pressure 118/71 Pulse Oximetry 95 93 L 12/29/17 08:52 Temperature Pulse Rate 84 Respiratory Rate 19 Blood Pressure Pulse Oximetry 100 Intake & Output 12/28/17 12/29/17 12/29/17 18:59 06:59 18:59 Intake Total 800 / 800 1967 / 1967 100 / 100 Output Total 200 / 200 Balance 800 / 800 1768 / 1768 100 / 100 Weight 44.5 kg Intake: IV 800 / 800 1450 / 1450 100 / 100 Lasix Inj 100 MG In NS Inj 90 200 / 200 ML @ 10 mls/hr IV.CONT .Q10H [facility] Rx#:[id number] Diprivan 1000 mg/100 ml Inj 1, 100 / 100 000 mg In 100 ml @ 5 MCG/KG/MIN 1.2 mls/hr IV.CONT TITRATE PRN Rx#:[id number] Pitressin Inj 40 UNIT In NS Inj 100 / 100 98 ML @ 0.04 UNITS/MIN 6 mls/ hr IV.CONT CONT YUE Rx#: [id number] Flexbumin 25% Inj 100 ML @ 60 100 / 100 100 / 100 mls/hr IV.SIG Q12H [facility] Rx#: [id number] Diflucan 100 mg Premix Bag 50 50 / 50 ML @ 50 mls/hr IV.SIG Q24H [facility] Rx#:[id number] Zyvox 600 mg Premix 300 ML @ 300 / 300 300 mls/hr IV.SIG Q12H [facility] Rx#: [id number] Levophed-Dextrose 4 mg/250 ml 250 / 250 750 / 750 Drip 4 mg In 250 ml @ 2 MCG/MIN 7.5 mls/hr IV.SIG TITRATE PRN Rx#:[id number] Zosyn 2.25 GM Premix 50 ML @ 50 / 50 100 / 100 100 mls/hr IV.SIG Q8H [facility] Rx#: [id number] Tube Feeding 418 / 418 Water Bolus Amount 100 / 100 Output: Urine Amount (Catheter) 200 / 200 Indwelling Urethral Catheter 200 / 200 Other: Date of Last Bowel Movement 12/28/17 - Constitutional Comments: Intubated - Routine Neck Exam Present: supple - Routine Respiratory Exam Comments: coarse BS - Routine Cardiovascular Exam Present: RRR, S1, S2 - Routine Abdominal Exam Present: distended - Routine Extremities Exam Present: edema (1+) - Routine Neurological Exam sedated, intubated - Urinary Catheter Management Indwelling Urethral Catheter Cath placed during this visit: yes Reason for continuing: Chronic Urinary Retention Insertion date: 09/28/18 Insertion time: 15:25 Results 12/28/17 15:27 12/29/17 06:00 Cardiac Enzymes 12/27/17 12/27/17 12/28/17 Range/Units 15:55 15:55 05:09 AST 23 83 H (15-37) U/L Troponin I 0.31 H (0.02-0.05) ng/mL B-Natriuretic Peptide (0-100) pg/mL 12/28/17 12/28/17 12/29/17 Range/Units 09:23 09:23 06:00 AST 1562 H (15-37) U/L Troponin I 11.30 H* D (0.02-0.05) ng/mL B-Natriuretic Peptide Greater than 5000 H (0-100) pg/mL Coagulation 12/28/17 12/28/17 12/28/17 Range/Units 09:23 15:27 21:47 PT 12.6 H (9.8-11.6) sec APTT 40.6 H 147.3 H* D (24.3-30.1) sec B-Natriuretic Peptide Greater than 5000 H (0-100) pg/mL 12/28/17 Range/Units 23:42 PT (9.8-11.6) sec APTT 71.7 H D (24.3-30.1) sec B-Natriuretic Peptide (0-100) pg/mL CBC 12/27/17 12/28/17 12/28/17 Range/Units 15:55 05:09 15:27 WBC 6.7 D 8.4 10.3 (4.0-11.0) th/mm3 RBC 2.45 L 2.65 L 2.79 L (4.00-5.30) mil/mm3 Hgb 8.1 L 8.7 L 9.0 L (11.6-15.3) gm/dL Hct 23.7 L 25.5 L 27.1 L (35.0-46.0) % Plt Count 136 L D 136 L 125 L (150-450) th/mm3 Neut # (Auto) 6.1 (1.8-7.7) th/mm3 Lymph # (Auto) 0.5 L (1.0-4.8) th/mm3 [place] # (Auto) 0.1 (0.0-0.9) th/mm3 Eos # (Auto) 0.0 (0.0-0.4) th/mm3 Baso # (Auto) 0.0 (0.0-0.2) th/mm3 Comprehensive Metabolic Panel 12/27/17 12/28/17 12/29/17 Range/Units 15:55 05:09 06:00 Sodium 134 L 135 L 127 L (136-145) meq/L Potassium 3.6 3.4 L 5.2 H D (3.5-5.1) meq/L Chloride 97 L 95 L 91 L (98-107) meq/L Carbon Dioxide 16.7 L 21.3 13.2 L (21.0-32.0) meq/L BUN 71 H 72 H 80 H (7-18) mg/dL Creatinine 3.00 H 3.12 H 3.70 H (0.50-1.00) mg/dL Calcium 7.3 L* 7.5 L 7.5 L (8.5-10.1) mg/dL AST 23 83 H 1562 H (15-37) U/L ALT 13 14 490 H (10-53) U/L Alkaline Phosphatase 69 68 135 H (45-117) U/L Total Protein 5.2 L D 5.4 L 5.5 L (6.4-8.2) g/dL Albumin 2.6 L 2.9 L 3.3 L (3.4-5.0) g/dL Intake and Output 12/28/17 12/29/17 12/29/17 22:59 06:59 14:59 Intake Total 700 / 700 1568 / 1568 100 / 100 Output Total 200 / 200 Balance 700 / 700 1368 / 1368 100 / 100 Intake: IV 700 / 700 1050 / 1050 100 / 100 Lasix Inj 100 MG In NS Inj 90 100 / 100 100 / 100 ML @ 10 mls/hr IV.CONT .Q10H [facility] Rx#:[id number] Pitressin Inj 40 UNIT In NS Inj 100 / 100 98 ML @ 0.04 UNITS/MIN 6 mls/ hr IV.CONT CONT YUE Rx#: [id number] Flexbumin 25% Inj 100 ML @ 60 100 / 100 mls/hr IV.SIG Q12H [facility]UE Rx#: [id number] Diflucan 100 mg Premix Bag 50 50 / 50 ML @ 50 mls/hr IV.SIG Q24H [facility] Rx#:[id number] Zyvox 600 mg Premix 300 ML @ 300 / 300 300 mls/hr IV.SIG Q12H [facility] Rx#: [id number] Levophed-Dextrose 4 mg/250 ml 250 / 250 500 / 500 Drip 4 mg In 250 ml @ 2 MCG/MIN 7.5 mls/hr IV.SIG TITRATE PRN Rx#:[id number] Zosyn 2.25 GM Premix 50 ML @ 50 / 50 50 / 50 100 mls/hr IV.SIG Q8H YUE Rx#: [id number] Tube Feeding 418 / 418 Water Bolus Amount 100 / 100 Output: Urine Amount (Catheter) 200 / 200 Indwelling Urethral Catheter 200 / 200 Other: Date of Last Bowel Movement 12/28/17 Weight 44.5 kg - Imaging and Cardiology Imaging: Impressions Chest X-Ray 12/27/17 00:00 CONCLUSION: 1. ET tube in good position. 2. Cardiomegaly with moderate severity pulmonary edema. Chest X-Ray 12/27/17 00:00 CONCLUSION: 1. Gastric tube side-port is 5 cm above the left hemidiaphragm and needs to be advanced. 2. ET tube tip is 2.2 cm above the natalie. 3. Cardiomegaly and pulmonary edema, stable in severity. Chest X-Ray 12/28/17 06:00 CONCLUSION: Diffuse increased interstitial markings and increased density in the perihilar regions likely from edema. This is unchanged. Chest X-Ray 12/28/17 14:41 CONCLUSION: New left IJ central line in good position with no evidence of pneumothorax. Chest X-Ray 12/29/17 06:00 CONCLUSION: 1. Stable tubes and lines, as above. 2. Worsening pulmonary edema pattern. Assessment and Plan - Plan Critically ill 77 year old with a significant cardiovascular PMH of COPD, HCAP, UTI with mana, CAD s/p Multiple PCI and Contrast induced nephropathy presenting with unresponsiveness. She went into pulmonary edema and it is unclear the etiology. Echo showed grade 2 diastolic dysfunction and no RWMA. Currently, the patient is essentially anuric and intubated 2/2 to hypoxic respiratory failure. Septic shock with Multiorgan failure- unclear what the inciting event is. Would continue supportive care with IV abx and pressors. Acute Renal Failure- Attempts at diuresis have been futile, her kidneys appear to be shutting down. CVVH may be the only option. Type 2 NSTEMI- less likely that is an epicardial thrombus given lack of regional wall motion abnormality. Her troponin of 11 can easily be explained by anemia, acute renal, and ongoing infectious process. As such, I feel heparin gtt is not adding much.
--- NOTE | 2017-12-29 10:28 | P.PNNP ---
Subjective Interval history: patient is on the ventilator. Hypotensive, on 2 vasopressors: Vasopressin and Levophed. Oligoanuric, in spite of Lasix drip. Discussed with Dr. Montero. Discussed with patient's . Events noted. She has suffered [place]. Physical Exam Vital signs: Vital Signs 12/28/17 11:11 12/28/17 12:00 12/28/17 14:02 Temperature Pulse Rate 100 H 91 H Respiratory Rate 16 18 Blood Pressure Pulse Oximetry 97 12/28/17 15:31 12/28/17 19:54 12/28/17 20:00 Temperature 98.2 F Pulse Rate 79 Respiratory Rate 20 17 18 Blood Pressure 100/64 Pulse Oximetry 97 94 L 94 L 12/28/17 20:32 12/29/17 00:00 12/29/17 00:06 Temperature 97.5 F L Pulse Rate 80 82 Respiratory Rate 17 16 16 Blood Pressure 111/72 Pulse Oximetry 94 L 94 L 12/29/17 03:53 12/29/17 03:56 12/29/17 04:00 Temperature 98.8 F Pulse Rate 66 66 Respiratory Rate 18 18 18 Blood Pressure 118/71 Pulse Oximetry 95 93 L 12/29/17 08:52 Temperature Pulse Rate 84 Respiratory Rate 19 Blood Pressure Pulse Oximetry 100 Intake & Output 12/28/17 12/29/17 12/29/17 18:59 06:59 18:59 Intake Total 800 / 800 1967 / 1967 100 / 100 Output Total 200 / 200 Balance 800 / 800 1768 / 1768 100 / 100 Weight 44.5 kg Intake: IV 800 / 800 1450 / 1450 100 / 100 Lasix Inj 100 MG In NS Inj 90 200 / 200 ML @ 10 mls/hr IV.CONT .Q10H [facility] Rx#:[id number] Diprivan 1000 mg/100 ml Inj 1, 100 / 100 000 mg In 100 ml @ 5 MCG/KG/MIN 1.2 mls/hr IV.CONT TITRATE PRN Rx#:[id number] Pitressin Inj 40 UNIT In NS Inj 100 / 100 98 ML @ 0.04 UNITS/MIN 6 mls/ hr IV.CONT CONT [facility] Rx#: [id number] Flexbumin 25% Inj 100 ML @ 60 100 / 100 100 / 100 mls/hr IV.SIG Q12H [facility] Rx#: [id number] Diflucan 100 mg Premix Bag 50 50 / 50 ML @ 50 mls/hr IV.SIG Q24H [facility] Rx#:[id number] Zyvox 600 mg Premix 300 ML @ 300 / 300 300 mls/hr IV.SIG Q12H [facility] Rx#: [id number] Levophed-Dextrose 4 mg/250 ml 250 / 250 750 / 750 Drip 4 mg In 250 ml @ 2 MCG/MIN 7.5 mls/hr IV.SIG TITRATE PRN Rx#:[id number] Zosyn 2.25 GM Premix 50 ML @ 50 / 50 100 / 100 100 mls/hr IV.SIG Q8H [facility] Rx#: [id number] Tube Feeding 418 / 418 Water Bolus Amount 100 / 100 Output: Urine Amount (Catheter) 200 / 200 Indwelling Urethral Catheter 200 / 200 Other: Date of Last Bowel Movement 12/28/17 Narrative: GENERAL: Elderly female, frail, thin, poorly nourished, intubated SKIN: warm/dry. NECK: Trachea midline. No JVD. CARDIOVASCULAR: Regular rate. Murmur. Left upper chest pacemaker in place RESPIRATORY: Coarse bilateral posterior breath sounds. Right upper chest Infuse -a-Port in place GASTROINTESTINAL: Abdomen soft, flat, and nondistended. GENITOURINARY: Indwelling Olson catheter MUSCULOSKELETAL: No obvious deformities. No clubbing. No cyanosis. Moderate edema. - Urinary Catheter Management Indwelling Urethral Catheter Cath placed during this visit: yes Reason for continuing: Chronic Urinary Retention Insertion date: 12/26/17 Insertion time: 15:25 Assessment and Plan - Assessment (1) Acute kidney injury superimposed on chronic kidney disease Code(s): N17.9 - ; N18.9 - Status: Acute Plan: (1) Acute kidney injury superimposed on chronic kidney disease Code(s): N17.9 - Acute kidney failure, unspecified; N18.9 - Chronic kidney disease, unspecified Status: Acute Plan: She has underlying stage IV CKD. Patient was hypotensive in the rehab when EMS arrived. Likely has suffered ATN. She was on dialysis for almost 2 months last year before we were able to stop dialysis. Again a few weeks ago, she was admitted to [facility] when she was dialyzed a few times before renal function improved and we were able to stop dialysis. Baseline GFR is abut 19-21. Repeated episodes of DONNIE may result in progressive CKD. Not responding to diuretic. Positive fluid balance. We discussed renal replacement therapy: she is too unstable for any form of dialysis at this time. SBP is in 70s. Very poor prognosis. (2) Pulmonary hypertension Code(s): I27.20 - Status: Acute Plan: was on Sildenafil. (3) History of congestive heart failure Code(s): Z86.79 - Status: Chronic (4) History of permanent cardiac pacemaker placement Code(s): Z95.0 - Status: Chronic (5) Seizure Code(s): R56.9 - Status: Acute Plan: Etiology: hypoxia or hypoglycemia or other causes. Monitor. (6) Disorder of acid-base balance Code(s): E87.8 - Status: Acute Plan: patient with metabolic acidosis.
[2017-12-29 10:50] LABS: Hematocrit 27.4 % (35.0-46.0); Hemoglobin 8.8 gm/dL (11.6-15.3); Mean Corpuscular HGB Conc 32.2 % (32.0-36.0); Mean Corpuscular Hemoglobin 31.6 pg (27.0-34.0); Mean Corpuscular Volume 98.2 fL (80.0-100.0); Mean Platelet Volume 8.5 fL (7.0-11.0); Platelet Count 71 th/mm3 (150-450); Red Blood Count 2.79 mil/mm3 (4.00-5.30); Red Cell Distribution Width 17.7 % (11.6-17.2); White Blood Count 15.8 th/mm3 (4.0-11.0)
--- NOTE | 2017-12-29 11:30 | P.PNPAL ---
Reason for Visit Reason for visit: a. To assist with evaluation and management of symptoms including: pain, dyspnea, debility b. To assist medical decision maker(s) with: better understanding of current medical conditions; weighing benefits/burdens of medical treatment options; making medical treatment decisions. Subjective Subjective/Interval History: Pt intubated on vent. She was extubated 12/27 and subsequently reintubated same day. CXR showing pulmonary edema. Sputum cx growing MRSA, klebsiella. Troponin up to 11 yesterday. She has been hypotensive, on levophed 12mcg and vasopressin. + fungiuria. Cardiology following. Anuric despite recently added lasix infusion. Not candidate for HD, CVVH is possiblity. LFTs trending up. Family/Friend Interactions: at bedside. Provided medical update. Explained that multiple organ systems are failing. Discussed dialysis with CVVH- that this would not necessarily improve the other failing organ systems. Discussed worsening prognosis. Discussed no escalation of care vs de-escalation, compassionat extubation, changing code status. He wants to wait 1 more day and "see how she does." If there is no improvement he says he would agree to no further escalation of care. Objective Vital Signs: Vital Signs 12/28/17 12:00 12/28/17 14:02 12/28/17 15:31 Temperature Pulse Rate 100 H 91 H Respiratory Rate 18 20 Blood Pressure Pulse Oximetry 97 12/28/17 19:54 12/28/17 20:00 12/28/17 20:32 Temperature 98.2 F Pulse Rate 79 80 Respiratory Rate 17 18 17 Blood Pressure 100/64 Pulse Oximetry 94 L 94 L 12/29/17 00:00 12/29/17 00:06 12/29/17 03:53 Temperature 97.5 F L Pulse Rate 82 66 Respiratory Rate 16 16 18 Blood Pressure 111/72 Pulse Oximetry 94 L 94 L 12/29/17 03:56 12/29/17 04:00 12/29/17 08:00 Temperature 98.8 F 98.7 F Pulse Rate 66 79 Respiratory Rate 18 18 19 Blood Pressure 118/71 122/69 Pulse Oximetry 95 93 L 100 12/29/17 08:52 Temperature Pulse Rate 84 Respiratory Rate 19 Blood Pressure Pulse Oximetry 100 Intake & Output 12/28/17 12/29/17 12/29/17 18:59 06:59 18:59 Intake Total 800 / 800 1967 / 1967 100 / 100 Output Total 200 / 200 Balance 800 / 800 1768 / 1768 100 / 100 Weight 44.5 kg Intake: IV 800 / 800 1450 / 1450 100 / 100 Lasix Inj 100 MG In NS Inj 90 200 / 200 ML @ 10 mls/hr IV.CONT .Q10H [facility] Rx#:[id number] Diprivan 1000 mg/100 ml Inj 1, 100 / 100 000 mg In 100 ml @ 5 MCG/KG/MIN 1.2 mls/hr IV.CONT TITRATE PRN Rx#:[id number] Pitressin Inj 40 UNIT In NS Inj 100 / 100 98 ML @ 0.04 UNITS/MIN 6 mls/ hr IV.CONT CONT MARIA GUADALUPE Rx#: [id number] Flexbumin 25% Inj 100 ML @ 60 100 / 100 100 / 100 mls/hr IV.SIG Q12H [facility] GUADALUPE Rx#: [id number] Diflucan 100 mg Premix Bag 50 50 / 50 ML @ 50 mls/hr IV.SIG Q24H [facility] GUADALU[facility] Rx#:[id number] Zyvox 600 mg Premix 300 ML @ 300 / 300 300 mls/hr IV.SIG Q12H [facility] GUADALU[facility] Rx#: [id number] Levophed-Dextrose 4 mg/250 ml 250 / 250 750 / 750 Drip 4 mg In 250 ml @ 2 MCG/MIN 7.5 mls/hr IV.SIG TITRATE PRN Rx#:[id number] Zosyn 2.25 GM Premix 50 ML @ 50 / 50 100 / 100 100 mls/hr IV.SIG Q8H [facility] Rx#: [id number] Tube Feeding 418 / 418 Water Bolus Amount 100 / 100 Output: Urine Amount (Catheter) 200 / 200 Indwelling Urethral Catheter 200 / 200 Other: Date of Last Bowel Movement 12/28/17 Physical Exam: CONSTITUTIONAL/GENERAL: frail and cachectic appearing female TUBES/LINES/DRAINS: OETT, albrecht SKIN: No jaundice, rashes, or lesions. +Ecchymoses on upper extremities. + excoriations BLE. No wounds seen anteriorly. Skin temperature appropriate. Not diaphoretic. + small avulsion LUE HEAD: Atraumatic. Normocephalic. +temporal wasting EYES: subtle icterus. No injection or drainage. Fundi not examined. ENT: Nose without bleeding or purulent drainage. Throat exam inhibited by OETT NECK: Trachea midline. Supple, nontender. CARDIOVASCULAR: RRR + murmurs, no gallops, or rubs. No JVD. RESPIRATORY/CHEST: Symmetric, unlabored respirations. Clear to auscultation. Breath sounds equal bilaterally. No wheezes, rales, or rhonchi. diminished GASTROINTESTINAL: Abdomen soft, non-tender, mildly distended. No hepato- splenomegaly, or palpable masses. Bowel sounds hypoactive. +appliance LLQ under skin GENITOURINARY: Without palpable bladder distension. Albrecht catheter in place. MUSCULOSKELETAL: Extremities without clubbing, cyanosis, or edema. +muscle wasting BLE. No mottling or clubbing. NEUROLOGICAL: sedated on vent. PSYCHIATRIC: unable to assess, intubated and sedated on vent Diagnostic Tests Laboratory: Laboratory Results - last 72 hr 12/26/17 12/26/17 12/26/17 11:15 11:15 11:15 WBC RBC Hgb Hct MCV MCH MCHC RDW Plt Count MPV Prelim Diff (Auto) Neut % (Auto) Lymph % (Auto) Camp % (Auto) Eos % (Auto) Baso % (Auto) Neut # (Auto) Lymph # (Auto) Camp # (Auto) Eos # (Auto) Baso # (Auto) WBC Differential Diff Scan Differential Comment PT INR APTT Puncture Site Patient Temperature O2 Saturation ABG pH ABG pCO2 ABG pO2 ABG HCO3 ABG O2 Content ABG Base Excess ABG Methemoglobin Hemoglobin Carboxyhemoglobin O2 Delivery Device Vent Setting Inspired O2 Critical Value Sodium Potassium Chloride Carbon Dioxide Anion Gap BUN Creatinine Estimated GFR POC Glucose Random Glucose Calcium Prot Corrected Calcium Magnesium Total Bilirubin AST ALT Alkaline Phosphatase Total Creatine Kinase Troponin I B-Natriuretic Peptide Total Protein Albumin Urine Color Yellow Urine Clarity Hazy H Urine pH 5.0 Ur Specific [place] 1.013 Urine Protein 30 H Urine Glucose (UA) Negative Urine Ketones Negative Urine Occult Blood Negative Urine Nitrate Negative Urine Bilirubin Negative Urine Urobilinogen Less than 2 Ur Leukocyte Esterase Small H Urine RBC 1 Urine WBC 12 H Urine WBC Clumps Moderate H Urine Bacteria Moderate H Micro UA Comment Cath-culture ind Ur Microscopic Review Not Reportable Urine Culture Comments Cath-cult indicated Nasal Screen MRSA (PCR) Mrsa detected Urine Opiates Screen Pos H Ur Barbiturates Screen Neg Ur Amphetamines Screen Neg U Benzodiazepines Scrn Pos H Urine Cocaine Screen Neg U Cannabinoids Screen Neg Blood Type Blood Type Recheck Antibody Screen MTS Gel Crossmatch Bld Prod Order Comment 12/26/17 12/26/17 12/26/17 11:20 11:20 12:19 WBC RBC Hgb Hct MCV MCH MCHC RDW Plt Count MPV Prelim Diff (Auto) Neut % (Auto) Lymph % (Auto) Camp % (Auto) Eos % (Auto) Baso % (Auto) Neut # (Auto) Lymph # (Auto) Camp # (Auto) Eos # (Auto) Baso # (Auto) WBC Differential Diff Scan Differential Comment PT INR APTT Puncture Site Patient Temperature O2 Saturation ABG pH ABG pCO2 ABG pO2 ABG HCO3 ABG O2 Content ABG Base Excess ABG Methemoglobin Hemoglobin Carboxyhemoglobin O2 Delivery Device Vent Setting Inspired O2 Critical Value Sodium Potassium Chloride Carbon Dioxide Anion Gap BUN Creatinine Estimated GFR POC Glucose 67 L Random Glucose Calcium Prot Corrected Calcium Magnesium Total Bilirubin AST ALT Alkaline Phosphatase Total Creatine Kinase 41 Troponin I 0.26 H D B-Natriuretic Peptide Greater than 5000 H Total Protein Albumin Urine Color Urine Clarity Urine pH Ur Specific [place] Urine Protein Urine Glucose (UA) Urine Ketones Urine Occult Blood Urine Nitrate Urine Bilirubin Urine Urobilinogen Ur Leukocyte Esterase Urine RBC Urine WBC Urine WBC Clumps Urine Bacteria Micro UA Comment Ur Microscopic Review Urine Culture Comments Nasal Screen MRSA (PCR) Urine Opiates Screen Ur Barbiturates Screen Ur Amphetamines Screen U Benzodiazepines Scrn Urine Cocaine Screen U Cannabinoids Screen Blood Type Blood Type Recheck Antibody Screen MTS Gel Crossmatch Bld Prod Order Comment 12/26/17 12/26/17 12/26/17 13:14 13:16 15:36 WBC RBC Hgb Hct MCV MCH MCHC RDW Plt Count MPV Prelim Diff (Auto) Neut % (Auto) Lymph % (Auto) Camp % (Auto) Eos % (Auto) Baso % (Auto) Neut # (Auto) Lymph # (Auto) Camp # (Auto) Eos # (Auto) Baso # (Auto) WBC Differential Diff Scan Differential Comment PT INR APTT Puncture Site Patient Temperature O2 Saturation ABG pH ABG pCO2 ABG pO2 ABG HCO3 ABG O2 Content ABG Base Excess ABG Methemoglobin Hemoglobin Carboxyhemoglobin O2 Delivery Device Vent Setting Inspired O2 Critical Value Sodium Potassium Chloride Carbon Dioxide Anion Gap BUN Creatinine Estimated GFR POC Glucose 67 L 73 74 Random Glucose Calcium Prot Corrected Calcium Magnesium Total Bilirubin AST ALT Alkaline Phosphatase Total Creatine Kinase Troponin I B-Natriuretic Peptide Total Protein Albumin Urine Color Urine Clarity Urine pH Ur Specific [place] Urine Protein Urine Glucose (UA) Urine Ketones Urine Occult Blood Urine Nitrate Urine Bilirubin Urine Urobilinogen Ur Leukocyte Esterase Urine RBC Urine WBC Urine WBC Clumps Urine Bacteria Micro UA Comment Ur Microscopic Review Urine Culture Comments Nasal Screen MRSA (PCR) Urine Opiates Screen Ur Barbiturates Screen Ur Amphetamines Screen U Benzodiazepines Scrn Urine Cocaine Screen U Cannabinoids Screen Blood Type Blood Type Recheck Antibody Screen MTS Gel Crossmatch Bld Prod Order Comment 12/26/17 12/27/17 12/27/17 21:24 00:38 04:30 WBC 3.7 L RBC 2.18 L Hgb 7.2 L Hct 21.2 L MCV 97.2 MCH 32.9 MCHC 33.8 RDW 17.1 Plt Count 93 L D MPV 8.6 Prelim Diff (Auto) Slide review pending Neut % (Auto) 94.7 H Lymph % (Auto) 4.0 L Camp % (Auto) 1.0 Eos % (Auto) 0.2 Baso % (Auto) 0.1 Neut # (Auto) 3.5 Lymph # (Auto) 0.1 L Camp # (Auto) 0.0 Eos # (Auto) 0.0 Baso # (Auto) 0.0 WBC Differential . Diff Scan Auto diff confirmed Differential Comment . PT INR APTT Puncture Site Patient Temperature O2 Saturation ABG pH ABG pCO2 ABG pO2 ABG HCO3 ABG O2 Content ABG Base Excess ABG Methemoglobin Hemoglobin Carboxyhemoglobin O2 Delivery Device Vent Setting Inspired O2 Critical Value Sodium Potassium Chloride Carbon Dioxide Anion Gap BUN Creatinine Estimated GFR POC Glucose 86 Random Glucose Calcium Prot Corrected Calcium Magnesium Total Bilirubin AST ALT Alkaline Phosphatase Total Creatine Kinase 19 L Troponin I 0.27 H B-Natriuretic Peptide Total Protein Albumin Urine Color Urine Clarity Urine pH Ur Specific [place] Urine Protein Urine Glucose (UA) Urine Ketones Urine Occult Blood Urine Nitrate Urine Bilirubin Urine Urobilinogen Ur Leukocyte Esterase Urine RBC Urine WBC Urine WBC Clumps Urine Bacteria Micro UA Comment Ur Microscopic Review Urine Culture Comments Nasal Screen MRSA (PCR) Urine Opiates Screen Ur Barbiturates Screen Ur Amphetamines Screen U Benzodiazepines Scrn Urine Cocaine Screen U Cannabinoids Screen Blood Type Blood Type Recheck Antibody Screen MTS Gel Crossmatch Bld Prod Order Comment 12/27/17 12/27/17 12/27/17 04:30 09:06 13:14 WBC RBC Hgb Hct MCV MCH MCHC RDW Plt Count MPV Prelim Diff (Auto) Neut % (Auto) Lymph % (Auto) Camp % (Auto) Eos % (Auto) Baso % (Auto) Neut # (Auto) Lymph # (Auto) Camp # (Auto) Eos # (Auto) Baso # (Auto) WBC Differential Diff Scan Differential Comment PT INR APTT Puncture Site Patient Temperature O2 Saturation ABG pH ABG pCO2 ABG pO2 ABG HCO3 ABG O2 Content ABG Base Excess ABG Methemoglobin Hemoglobin Carboxyhemoglobin O2 Delivery Device Vent Setting Inspired O2 Critical Value Sodium 137 Potassium 3.7 Chloride 101 Carbon Dioxide 21.2 Anion Gap 15 BUN 73 H Creatinine 3.08 H Estimated GFR 15 L POC Glucose 86 98 Random Glucose 70 L Calcium 7.1 L* D Prot Corrected Calcium 8.5 Magnesium Total Bilirubin 0.5 AST 15 ALT 10 Alkaline Phosphatase 58 Total Creatine Kinase Troponin I B-Natriuretic Peptide Total Protein 4.5 L D Albumin 2.1 L Urine Color Urine Clarity Urine pH Ur Specific [place] Urine Protein Urine Glucose (UA) Urine Ketones Urine Occult Blood Urine Nitrate Urine Bilirubin Urine Urobilinogen Ur Leukocyte Esterase Urine RBC Urine WBC Urine WBC Clumps Urine Bacteria Micro UA Comment Ur Microscopic Review Urine Culture Comments Nasal Screen MRSA (PCR) Urine Opiates Screen Ur Barbiturates Screen Ur Amphetamines Screen U Benzodiazepines Scrn Urine Cocaine Screen U Cannabinoids Screen Blood Type Blood Type Recheck Antibody Screen MTS Gel Crossmatch Bld Prod Order Comment 12/27/17 12/27/17 12/27/17 15:55 15:55 15:55 WBC 6.7 D RBC 2.45 L Hgb 8.1 L Hct 23.7 L MCV 96.8 MCH 32.9 MCHC 34.0 RDW 17.4 H Plt Count 136 L D MPV 9.5 Prelim Diff (Auto) Neut % (Auto) 91.1 H Lymph % (Auto) 7.3 L Camp % (Auto) 1.5 Eos % (Auto) 0.0 Baso % (Auto) 0.1 Neut # (Auto) 6.1 Lymph # (Auto) 0.5 L Camp # (Auto) 0.1 Eos # (Auto) 0.0 Baso # (Auto) 0.0 WBC Differential . Diff Scan Differential Comment Auto diff final PT INR APTT Puncture Site Patient Temperature O2 Saturation ABG pH ABG pCO2 ABG pO2 ABG HCO3 ABG O2 Content ABG Base Excess ABG Methemoglobin Hemoglobin Carboxyhemoglobin O2 Delivery Device Vent Setting Inspired O2 Critical Value Sodium Potassium Chloride Carbon Dioxide Anion Gap BUN Creatinine Estimated GFR POC Glucose Random Glucose Calcium Prot Corrected Calcium Magnesium Total Bilirubin AST ALT Alkaline Phosphatase Total Creatine Kinase 49 Troponin I 0.31 H B-Natriuretic Peptide Total Protein Albumin Urine Color Urine Clarity Urine pH Ur Specific [place] Urine Protein Urine Glucose (UA) Urine Ketones Urine Occult Blood Urine Nitrate Urine Bilirubin Urine Urobilinogen Ur Leukocyte Esterase Urine RBC Urine WBC Urine WBC Clumps Urine Bacteria Micro UA Comment Ur Microscopic Review Urine Culture Comments Nasal Screen MRSA (PCR) Urine Opiates Screen Ur Barbiturates Screen Ur Amphetamines Screen U Benzodiazepines Scrn Urine Cocaine Screen U Cannabinoids Screen Blood Type O Positive Blood Type Recheck Not needed Antibody Screen Negative MTS Gel Crossmatch See Detail Bld Prod Order Comment 12/27/17 12/27/17 12/27/17 15:55 18:03 20:02 WBC RBC Hgb Hct MCV MCH MCHC RDW Plt Count MPV Prelim Diff (Auto) Neut % (Auto) Lymph % (Auto) Camp % (Auto) Eos % (Auto) Baso % (Auto) Neut # (Auto) Lymph # (Auto) Camp # (Auto) Eos # (Auto) Baso # (Auto) WBC Differential Diff Scan Differential Comment PT INR APTT Puncture Site Art line Patient Temperature 98.6 O2 Saturation 96 ABG pH 7.37 L ABG pCO2 28 L ABG pO2 123 H ABG HCO3 16 L* ABG O2 Content 9.5 L ABG Base Excess -8.4 L ABG Methemoglobin 2.0 Hemoglobin 6.9 L* Carboxyhemoglobin 0.9 O2 Delivery Device Ventilator Vent Setting [id number]/ Inspired O2 100 Critical Value Yes Sodium 134 L Potassium 3.6 Chloride 97 L Carbon Dioxide 16.7 L Anion Gap 20 H BUN 71 H Creatinine 3.00 H Estimated GFR 15 L POC Glucose 205 H Random Glucose 180 H D Calcium 7.3 L* Prot Corrected Calcium 8.3 L Magnesium Total Bilirubin 0.6 AST 23 ALT 13 Alkaline Phosphatase 69 Total Creatine Kinase Troponin I B-Natriuretic Peptide Total Protein 5.2 L D Albumin 2.6 L Urine Color Urine Clarity Urine pH Ur Specific [place] Urine Protein Urine Glucose (UA) Urine Ketones Urine Occult Blood Urine Nitrate Urine Bilirubin Urine Urobilinogen Ur Leukocyte Esterase Urine RBC Urine WBC Urine WBC Clumps Urine Bacteria Micro UA Comment Ur Microscopic Review Urine Culture Comments Nasal Screen MRSA (PCR) Urine Opiates Screen Ur Barbiturates Screen Ur Amphetamines Screen U Benzodiazepines Scrn Urine Cocaine Screen U Cannabinoids Screen Blood Type Blood Type Recheck Antibody Screen MTS Gel Crossmatch Bld Prod Order Comment 12/27/17 12/28/17 12/28/17 21:44 01:56 05:09 WBC 8.4 RBC 2.65 L Hgb 8.7 L Hct 25.5 L MCV 96.2 MCH 32.7 MCHC 34.0 RDW 17.6 H Plt Count 136 L MPV 9.2 Prelim Diff (Auto) Neut % (Auto) Lymph % (Auto) Camp % (Auto) Eos % (Auto) Baso % (Auto) Neut # (Auto) Lymph # (Auto) Camp # (Auto) Eos # (Auto) Baso # (Auto) WBC Differential Diff Scan Differential Comment PT INR APTT Puncture Site Patient Temperature O2 Saturation ABG pH ABG pCO2 ABG pO2 ABG HCO3 ABG O2 Content ABG Base Excess ABG Methemoglobin Hemoglobin Carboxyhemoglobin O2 Delivery Device Vent Setting Inspired O2 Critical Value Sodium Potassium Chloride Carbon Dioxide Anion Gap BUN Creatinine Estimated GFR POC Glucose 213 H 170 H Random Glucose Calcium Prot Corrected Calcium Magnesium Total Bilirubin AST ALT Alkaline Phosphatase Total Creatine Kinase Troponin I B-Natriuretic Peptide Total Protein Albumin Urine Color Urine Clarity Urine pH Ur Specific [place] Urine Protein Urine Glucose (UA) Urine Ketones Urine Occult Blood Urine Nitrate Urine Bilirubin Urine Urobilinogen Ur Leukocyte Esterase Urine RBC Urine WBC Urine WBC Clumps Urine Bacteria Micro UA Comment Ur Microscopic Review Urine Culture Comments Nasal Screen MRSA (PCR) Urine Opiates Screen Ur Barbiturates Screen Ur Amphetamines Screen U Benzodiazepines Scrn Urine Cocaine Screen U Cannabinoids Screen Blood Type Blood Type Recheck Antibody Screen MTS Gel Crossmatch Bld Prod Order Comment 12/28/17 12/28/17 12/28/17 05:09 09:23 09:23 WBC RBC Hgb Hct MCV MCH MCHC RDW Plt Count MPV Prelim Diff (Auto) Neut % (Auto) Lymph % (Auto) Camp % (Auto) Eos % (Auto) Baso % (Auto) Neut # (Auto) Lymph # (Auto) Camp # (Auto) Eos # (Auto) Baso # (Auto) WBC Differential Diff Scan Differential Comment PT INR APTT Puncture Site Patient Temperature O2 Saturation ABG pH ABG pCO2 ABG pO2 ABG HCO3 ABG O2 Content ABG Base Excess ABG Methemoglobin Hemoglobin Carboxyhemoglobin O2 Delivery Device Vent Setting Inspired O2 Critical Value Sodium 135 L Potassium 3.4 L Chloride 95 L Carbon Dioxide 21.3 Anion Gap 19 H BUN 72 H Creatinine 3.12 H Estimated GFR 15 L POC Glucose Random Glucose 138 H Calcium 7.5 L Prot Corrected Calcium Magnesium Total Bilirubin 0.8 AST 83 H ALT 14 Alkaline Phosphatase 68 Total Creatine Kinase Troponin I 11.30 H* D B-Natriuretic Peptide Greater than 5000 H Total Protein 5.4 L Albumin 2.9 L Urine Color Urine Clarity Urine pH Ur Specific [place] Urine Protein Urine Glucose (UA) Urine Ketones Urine Occult Blood Urine Nitrate Urine Bilirubin Urine Urobilinogen Ur Leukocyte Esterase Urine RBC Urine WBC Urine WBC Clumps Urine Bacteria Micro UA Comment Ur Microscopic Review Urine Culture Comments Nasal Screen MRSA (PCR) Urine Opiates Screen Ur Barbiturates Screen Ur Amphetamines Screen U Benzodiazepines Scrn Urine Cocaine Screen U Cannabinoids Screen Blood Type Blood Type Recheck Antibody Screen MTS Gel Crossmatch Bld Prod Order Comment 12/28/17 12/28/17 12/28/17 15:27 15:27 16:58 WBC 10.3 RBC 2.79 L Hgb 9.0 L Hct 27.1 L MCV 97.0 MCH 32.2 MCHC 33.2 RDW 17.7 H Plt Count 125 L MPV 8.8 Prelim Diff (Auto) Neut % (Auto) Lymph % (Auto) Camp % (Auto) Eos % (Auto) Baso % (Auto) Neut # (Auto) Lymph # (Auto) Camp # (Auto) Eos # (Auto) Baso # (Auto) WBC Differential Diff Scan Differential Comment PT 12.6 H INR 1.2 APTT 40.6 H Puncture Site Patient Temperature O2 Saturation ABG pH ABG pCO2 ABG pO2 ABG HCO3 ABG O2 Content ABG Base Excess ABG Methemoglobin Hemoglobin Carboxyhemoglobin O2 Delivery Device Vent Setting Inspired O2 Critical Value Sodium Potassium Chloride Carbon Dioxide Anion Gap BUN Creatinine Estimated GFR POC Glucose 258 H Random Glucose Calcium Prot Corrected Calcium Magnesium Total Bilirubin AST ALT Alkaline Phosphatase Total Creatine Kinase Troponin I B-Natriuretic Peptide Total Protein Albumin Urine Color Urine Clarity Urine pH Ur Specific [place] Urine Protein Urine Glucose (UA) Urine Ketones Urine Occult Blood Urine Nitrate Urine Bilirubin Urine Urobilinogen Ur Leukocyte Esterase Urine RBC Urine WBC Urine WBC Clumps Urine Bacteria Micro UA Comment Ur Microscopic Review Urine Culture Comments Nasal Screen MRSA (PCR) Urine Opiates Screen Ur Barbiturates Screen Ur Amphetamines Screen U Benzodiazepines Scrn Urine Cocaine Screen U Cannabinoids Screen Blood Type Blood Type Recheck Antibody Screen MTS Gel Crossmatch Bld Prod Order Comment 12/28/17 12/28/17 12/28/17 21:13 21:47 23:42 WBC RBC Hgb Hct MCV MCH MCHC RDW Plt Count MPV Prelim Diff (Auto) Neut % (Auto) Lymph % (Auto) Camp % (Auto) Eos % (Auto) Baso % (Auto) Neut # (Auto) Lymph # (Auto) Camp # (Auto) Eos # (Auto) Baso # (Auto) WBC Differential Diff Scan Differential Comment PT INR APTT 147.3 H* D 71.7 H D Puncture Site Patient Temperature O2 Saturation ABG pH ABG pCO2 ABG pO2 ABG HCO3 ABG O2 Content ABG Base Excess ABG Methemoglobin Hemoglobin Carboxyhemoglobin O2 Delivery Device Vent Setting Inspired O2 Critical Value Sodium Potassium Chloride Carbon Dioxide Anion Gap BUN Creatinine Estimated GFR POC Glucose 277 H Random Glucose Calcium Prot Corrected Calcium Magnesium Total Bilirubin AST ALT Alkaline Phosphatase Total Creatine Kinase Troponin I B-Natriuretic Peptide Total Protein Albumin Urine Color Urine Clarity Urine pH Ur Specific [place] Urine Protein Urine Glucose (UA) Urine Ketones Urine Occult Blood Urine Nitrate Urine Bilirubin Urine Urobilinogen Ur Leukocyte Esterase Urine RBC Urine WBC Urine WBC Clumps Urine Bacteria Micro UA Comment Ur Microscopic Review Urine Culture Comments Nasal Screen MRSA (PCR) Urine Opiates Screen Ur Barbiturates Screen Ur Amphetamines Screen U Benzodiazepines Scrn Urine Cocaine Screen U Cannabinoids Screen Blood Type Blood Type Recheck Antibody Screen MTS Gel Crossmatch Bld Prod Order Comment 12/29/17 12/29/17 12/29/17 01:48 06:00 08:40 WBC RBC Hgb Hct MCV MCH MCHC RDW Plt Count MPV Prelim Diff (Auto) Neut % (Auto) Lymph % (Auto) Camp % (Auto) Eos % (Auto) Baso % (Auto) Neut # (Auto) Lymph # (Auto) Camp # (Auto) Eos # (Auto) Baso # (Auto) WBC Differential Diff Scan Differential Comment PT INR APTT 86.5 H D Puncture Site Patient Temperature O2 Saturation ABG pH ABG pCO2 ABG pO2 ABG HCO3 ABG O2 Content ABG Base Excess ABG Methemoglobin Hemoglobin Carboxyhemoglobin O2 Delivery Device Vent Setting Inspired O2 Critical Value Sodium 127 L Potassium 5.2 H D Chloride 91 L Carbon Dioxide 13.2 L Anion Gap 23 H BUN 80 H Creatinine 3.70 H Estimated GFR 12 L POC Glucose 191 H Random Glucose 178 H Calcium 7.5 L Prot Corrected Calcium Magnesium 2.0 Total Bilirubin 1.9 H AST 1562 H ALT 490 H Alkaline Phosphatase 135 H Total Creatine Kinase Troponin I B-Natriuretic Peptide Total Protein 5.5 L Albumin 3.3 L Urine Color Urine Clarity Urine pH Ur Specific [place] Urine Protein Urine Glucose (UA) Urine Ketones Urine Occult Blood Urine Nitrate Urine Bilirubin Urine Urobilinogen Ur Leukocyte Esterase Urine RBC Urine WBC Urine WBC Clumps Urine Bacteria Micro UA Comment Ur Microscopic Review Urine Culture Comments Nasal Screen MRSA (PCR) Urine Opiates Screen Ur Barbiturates Screen Ur Amphetamines Screen U Benzodiazepines Scrn Urine Cocaine Screen U Cannabinoids Screen Blood Type Blood Type Recheck Antibody Screen MTS Gel Crossmatch Bld Prod Order Comment 12/29/17 12/29/17 09:56 10:00 WBC 15.8 H D RBC 2.79 L Hgb 8.8 L Hct 27.4 L MCV 98.2 MCH 31.6 MCHC 32.2 RDW 17.7 H Plt Count 71 L D MPV 8.5 Prelim Diff (Auto) Neut % (Auto) Lymph % (Auto) Camp % (Auto) Eos % (Auto) Baso % (Auto) Neut # (Auto) Lymph # (Auto) Camp # (Auto) Eos # (Auto) Baso # (Auto) WBC Differential Diff Scan Differential Comment PT INR APTT Puncture Site Patient Temperature O2 Saturation ABG pH ABG pCO2 ABG pO2 ABG HCO3 ABG O2 Content ABG Base Excess ABG Methemoglobin Hemoglobin Carboxyhemoglobin O2 Delivery Device Vent Setting Inspired O2 Critical Value Sodium Potassium Chloride Carbon Dioxide Anion Gap BUN Creatinine Estimated GFR POC Glucose 147 H Random Glucose Calcium Prot Corrected Calcium Magnesium Total Bilirubin AST ALT Alkaline Phosphatase Total Creatine Kinase Troponin I B-Natriuretic Peptide Total Protein Albumin Urine Color Urine Clarity Urine pH Ur Specific [place] Urine Protein Urine Glucose (UA) Urine Ketones Urine Occult Blood Urine Nitrate Urine Bilirubin Urine Urobilinogen Ur Leukocyte Esterase Urine RBC Urine WBC Urine WBC Clumps Urine Bacteria Micro UA Comment Ur Microscopic Review Urine Culture Comments Nasal Screen MRSA (PCR) Urine Opiates Screen Ur Barbiturates Screen Ur Amphetamines Screen U Benzodiazepines Scrn Urine Cocaine Screen U Cannabinoids Screen Blood Type Blood Type Recheck Antibody Screen MTS Gel Crossmatch Bld Prod Order Comment Result Diagrams: 12/29/17 10:00 12/29/17 06:00 Microbiology: Microbiology 12/26/17 06:40 Aerobic Blood Culture - Preliminary Blood - Peripheral No growth in 3 days Anaerobic Blood Culture - Preliminary No growth in 3 days 12/26/17 06:50 Aerobic Blood Culture - Preliminary Blood - Peripheral No growth in 3 days Anaerobic Blood Culture - Preliminary No growth in 3 days 12/26/17 11:15 Urine Culture - Final Catheterized Urine Cesilia tropicalis 12/26/17 10:25 Gram Stain - Final Sputum - Endotracheal Sputum Culture - Preliminary Klebsiella pneumoniae S. aureus MRSA 12/28/17 05:00 Gram Stain - Final Sputum - Endotracheal Imaging: ITS Impressions Abdomen/Pelvis CT 12/26/17 00:00 CONCLUSION: 1. There is a small volume of free fluid in the pelvis. It has a simple appearance on this examination. No specific abnormality is identified to explain the patient's sepsis. 2. Bilateral atrophic kidneys consistent with a history of renal failure. There is no hydronephrosis. 3. Nonacute findings include severe atherosclerotic disease and findings indicative of prior granulomatous infection. Please refer to chest CT report for description of the supradiaphragmatic findings. Head CT 12/26/17 05:57 CONCLUSION: 1. Limited examination of the right middle cranial and cephalad posterior fossa due to beam hardening artifact from the device in the right occipital scalp. 2. Senescent changes without acute intracranial abnormality. . Chest CT 12/26/17 07:49 CONCLUSION: 1. Diffuse bilateral patchy groundglass airspace disease, most prominently in the left upper lobe. This pattern is most consistent with pulmonary edema. Differential considerations include developing ARDS versus atypical/diffuse infection. 2. Simple appearing bilateral pleural effusions. 3. Stable numerous bilateral solid pulmonary nodules measuring 3 to 6 mm with a single densely calcified granuloma. Optional CT examination may be performed in 6 months (12 months from prior exam) to document stability per 2017 Fleischner criteria. 4. Prominent coronary calcifications. 5. Enlarged main pulmonary artery consistent with some degree of pulmonary artery hypertension. Chest X-Ray 12/29/17 06:00 CONCLUSION: 1. Stable tubes and lines, as above. 2. Worsening pulmonary edema pattern. Procedures: 12/27 extubated 12/27 reintubated 12/28 placement left IJ Assessment and Plan - Disease Oriented Problem List (1) Acute hypoxemic respiratory failure (2) Acute metabolic encephalopathy (3) Pulmonary edema (4) CHF exacerbation (5) Acute kidney injury superimposed on chronic kidney disease (6) History of congestive heart failure Pertinent Non-Medical Issues: Psychosocial: Born in [place], [place]. Been 46 years. 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 She retired to [place] several years ago with her . She did have one child which she lost. Spiritual: She was raised [employer]. 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 Legal: Patient is not currently capacitated to make medical decisions. Unclear if she will regain capacity. Per [place] statutes her would be the proxy decision-maker. Ethical issues impacting care: none Important Contacts: Wayne Buckley , cell Prognosis: This is a 77 yo female with hx CHF, CKD4, v-fib arrest, NSTEMI 01/2017, AF s/p pacemaker, anemia, COPD who presented 12/26 from a senior care via EMS for acute onset SOB, subsequent fall and seizure. Pt has had multiple hospitalizations in past including a prolonged multi-institutional admission last year. She has lost 60 lbs in the last year. Worsening status - multiple affected/failing organ systems, liver now affected as well. Unlikely she will recover. Even if she recovers from this current setback, she is at risk for continued decline and complications and it is unlikely she will return to her baseline given her poor nutritional status. Code Status: Full Code Plan: - LEGAL DECISION MAKER -Patient is not currently capacitated to make medical decisions. Unclear if she will regain capacity. Per [place] statutes her would be the proxy decision-maker. - CODE STATUS- full code - GOALS - Goals up to now aggressive. Discussed medical update, worsening status and prognosis, dialysis, with . He wants to wait 1 more day and "see how she does." If there is no improvement he says he would agree to no further escalation of care. - SYMPTOMS - * pain - multifactorial. hx chronic back pain and has pain pump. prior to admission pain well controlled with pain pump and rare use prn hydrocodone. appears comfortable. has PRN fentanyl 50mcg q1h, hasn't used. no further recs at this time * dyspnea - multifactorial. hx NSTEMI, CHF. BNP >5000, has pulmonary edema, pleural effusion. extubated and subsequently reintubated. fiO2 60%. now in shock, on levophed and vasopressin. has maria guadalupe and PRN duonebs, solumedrol, propofol gtt. mgmt per CCM * debility - pt with decreased appetite and 60 lb weight loss in last year. eats smoothies mostly, and chocolate flavored anything. appears cachectic. recommend trying appetite stimulant such as megace if pt was able to eat again. TF per [facility] - will see again tomorrow - d/w Dr Montero - Palliative care will continue to follow during hospital course as condition evolves, to assist patient/decision-maker with understanding of medical conditions, weighing benefits/burdens of treatment options, for clarification of goals of treatment. Additionally will assist with any symptoms of palliative concern Attestation Attestation: To help prompt me to consider important information that might be impacting today's encounter and assessment, information from prior notes written by myself or my colleagues may have been "brought forward" into today's note. My signature on this note, however, is an attestation that I personally performed the exam, history, and/or decision-making noted today, and, unless otherwise indicated, the interactions with patient, family, and staff as well as the review of records all occurred today. I also attest that the listed assessment and stated plan reflect my best clinical judgment today based on the combination of historical information, prior notes, and today's exam/ interactions. When time spent is documented, it refers only to time spent today by the signer, or if indicated, combined time spent today by collaborating physician/nurse practitioner.
[2017-12-29 15:06] LABS: Alanine Aminotransferase 839 U/L (10-53); Albumin 3.5 g/dL (3.4-5.0); Anion Gap 25 meq/L (5-15); Blood Urea Nitrogen 84 mg/dL (7-18); Calcium 7.6 mg/dL (8.5-10.1); Carbon Dioxide 13.5 meq/L (21.0-32.0); Chloride 91 meq/L (98-107); Glomerular Filtration Rate 11 mL/min (>89); Glucose,Random 78 mg/dL (74-106); Potassium 5.6 meq/L (3.5-5.1); Sodium 129 meq/L (136-145)
[2017-12-29 15:20] LABS: Alkaline Phosphatase 117 U/L (45-117); Aspartate Aminotransferase 2730 U/L (15-37); Total Protein 5.6 g/dL (6.4-8.2)
[2017-12-29] MEDS ORDERED: RESP: Albuterol Concentrated 2.5 MG/0.5 ML Neb NEB ONE (18:31)
[2017-12-29] MEDS ORDERED: Dextrose 50% in Water 50 ML Vial IV.PUSH ONE (18:31)
[2017-12-29] MEDS ORDERED: EPINEPHrine (1:1000) Inj 2 MG in Sodium Chlor 0.9% Inj 248 ML IV.CONT PRN (18:33)
[2017-12-29] MEDS ORDERED: DOPamine Inj 1,600 MG in Sodium Chlor 0.9% Inj 210 ML IV.CONT PRN (18:34)
[2017-12-29] MEDS ORDERED: Calcium Chloride Inj 1 GM in Sodium Chlor 0.9% Inj 100 ML IV.SIG ONE (19:00)
--- NOTE | 2017-12-29 19:20 | P.PCN ---
Date of procedure: 12/29/17 Pre-op diagnosis: Acute hypotension Post-op diagnosis: same Procedure: DATE: 12/29/2017 PROCEDURE: Right femoral arterial catheter placement INDICATION: [] DETAILS OF PROCEDURE The patient was placed in supine position. The skin was cleansed with Chloraprep. Additional barrier precautions included large sterile drape, sterile gloves, sterile gown, face mask, and hat. 1% lidocaine was used for local anesthesia. Under direct ultrasound guidance and on the initial attempt, the artery was accessed with an introducer needle. The guide wire was advanced. Using Seldinger technique 20 gauge arterial catheter was placed. The guide wire was removed. The catheter was connected to a transducer line and flushed with saline. The video monitor displayed normal arterial wave forms. The catheter was secured with 2-0 silk. A sterile dressing with antibiotic disc was applied. ESTIMATED BLOOD LOSS: minimal COMPLICATIONS: None
[2017-12-29] MEDS ORDERED: Norepinephrine Inj 4 MG/4 ML Ampul IV.CONT ONE (19:28)
[2017-12-29] MEDS ORDERED: Sodium Bicarbonate 8.4% Inj 50 MEQ/50 ML Syringe IV.CONT ONE (19:28)
[2017-12-29] MEDS ORDERED: Atropine Inj 1 MG/10 ML Syringe IV.PUSH ONE (19:28)
[2017-12-29] MEDS ORDERED: Calcium Chloride Inj 1 GM/10 ML Syringe IV.CONT ONE (19:28)
[2017-12-29] MEDS ORDERED: DOPamine 800 MG/500 ML Premix 800 MG/500 ML PLAST..BAG IV.CONT ONE (19:28)
--- NOTE | 2017-12-29 19:35 | P.PNCC ---
Critical Care Event Note Code activated: Yes Narrative: Initial CODE BLUE called at 1905 chest compressions were initiated. Patient was on norepinephrine drip at 50 mg/min. Fluids wide open. Patient received 4 mg epinephrine, 1 ampicillin bicarbonate 1 ampoule of calcium chloride. Dopamine drip was initiated at 5mcg/kg min. Return of spontaneous circulation at 1914. Stat labs ordered. Chest x-ray and EKG ordered stat. Patient was placed on transcutaneous pacing at 90 mV rate at 60 with capture Second CODE OSORIO called at 192 chest compressions were initiated. Patient received 1 ampoule sodium bicarb, 1 g of calcium chloride, 2 doses of epinephrine 1 mg was on a dopamine drip and epinephrine drip. Remains on norepinephrine drip at 50 gail grams per minute. Discussed with Wayne due to severe critical illness, pacemaker not currently pacing despite using transcutaneous pacer and remaining hypertensive and multisystem organ failure with bright red blood from ET tube, decision made to stop code at 1929 This case had a high probability of a clinically significant, sudden, or life threatening deterioration of this patient's condition which required my full and direct attention, intervention and personal management. Critical care time: less than 30 mins
--- NOTE | 2017-12-29 19:54 | P.PNADD ---
Addendum to Inpatient Note Reason for Addendum: Additional Documentation Additional information: At approximately 19:15 Drs. Nieto and Yaneth were notified of [facility] code blue [facility] Upon arrival Dr. Terry was actively running the code. The residents assisted by helping draw up epinephrine after which no further assistance was needed. Unfortunately, at approximately 19:29 the code was called and the patient was pronounced .
[2017-12-29 21:46] VITALS: BP 67/43; PULSE 50; RESP 35; TEMP 98.8; O2SAT 84
--- NOTE | 2017-12-30 06:42 | P.DN ---
Discharge Sum: Prov - Provider Primary care physician: Dejon Boggs DO Admitting clinician: Mary Montero Attending physician on admission: Mary Montero Consults: 12/26/17 07:53 Consult to Nephrology Routine Consulting Provider: Bryan Salazar Does the patient have a Assistant Chief Of Police who follows them?: No Preferred Nephrology Accelerator Systems Director:: Slunk Skin Curer Physician Reason for Consultation: Acute on chronic renal failure Notified:: Service Spoke with:: valeria Date Notified:: 12/26/17 Time Notified:: 08:08 Ordering Provider: KARSTEN 12/26/17 10:41 Consult to Palliative Care Routine Consulting Provider: Karmen Loco Reason for Consultation: Multiple frequent hospitalizations, multiple chronic diseases. Address goals of care Notified:: Service Spoke with:: gasper Date Notified:: 12/26/17 Time Notified:: 10:51 Ordering Provider: KARSTEN 12/26/17 11:58 HUB Only Consult Order [facility]ine [facility] 12/28[facility]17 11:05 Consult to Cardiology Routine Consulting Provider: El Reyes Does the patient have a Gantry Rigger who follows them?: No Preferred Roofing Sales Representative:: Slunk Skin Curer Physician Reason for Consultation: NSTEMI (Gantry Rigger is Dr. Arreaga who does not come to [place]) Notified:: Service Spoke with:: Emma Date Notified:: 12/28/17 Time Notified:: 11:13 Ordering Provider: KARSTEN Pronouncing clinician: Erlin Terry Discharge Sum: Diag - Admitting Diagnosis (1) HCAP (healthcare-associated pneumonia) Status: Acute (2) UTI (urinary tract infection) Status: Acute (3) Severe sepsis Status: Acute (4) Shock Status: Acute (5) Acute hypoxemic respiratory failure Status: Acute (6) Acute kidney injury superimposed on chronic kidney disease Status: Acute (7) Acute metabolic encephalopathy Status: Acute (8) CHF exacerbation Status: Acute (9) CAD (coronary artery disease) Status: Acute - Diagnosis at Time of (1) Cardiac arrest Diagnosis: Principal (2) Septic shock Diagnosis: Principal (3) Cardiogenic shock Diagnosis: Principal (4) NSTEMI (non-ST elevated myocardial infarction) Diagnosis: Principal (5) Acute hypoxemic respiratory failure Diagnosis: Principal (6) Acute kidney injury superimposed on chronic kidney disease Diagnosis: Principal (7) Acute metabolic encephalopathy Diagnosis: Secondary (8) Debility Diagnosis: Secondary (9) Dehydration Diagnosis: Secondary (10) Disorder of acid-base balance Diagnosis: Principal (11) Healthcare-associated pneumonia Diagnosis: Principal (12) Pulmonary edema Diagnosis: Principal (13) UTI (urinary tract infection) Diagnosis: Principal (14) Pulmonary hypertension Diagnosis: Secondary (15) CHF exacerbation Diagnosis: Principal (16) Chronic kidney disease Diagnosis: Secondary (17) History of congestive heart failure Diagnosis: Secondary (18) History of permanent cardiac pacemaker placement Diagnosis: Secondary (19) Hypertension Diagnosis: Secondary Discharge Sum: Summary - Date and Time Date of admission: 12/26/17 09:16 Date of : 12/29/17 Time of : 19:29 - Summary Details: See hospital course Procedures: Central line placement Intubation Arterial line placement CPR Brief History: Patient angelita is a 77-year-old [facility] resident with past medical history significant for COPD, history of respiratory failure/hypoxemia, [place] in January 2017, paroxysmal atrial fibrillation, congestive heart failure, chronic kidney disease stage IV, chronic anemia and hypertension. Apparently at the [facility] nursing developed acute shortness of breath, became unresponsive and hypopneic or apneic, followed by a probable seizure. EMS found patient unresponsive, but with a palpable pulse, Her blood pressure was 57 /31, received fluid resuscitation. Patient was intubated in the emergency department as she remained unresponsive. Patient had multiple hospitalization in the past including for STEMI in January 2017. I evaluated the patient in the ED. ER workup showed a BUN of 80 creatinine of 4 her baseline creatinine is approximately 2, bicarb today was 15.5. ABG showed significant metabolic acidosis and I have requested a lactic acid. A stat EEG had been ordered as patient has no previous history of seizures. I will not start antiepileptic medications at this time. Panculture ordered, start Zosyn for pneumonia. Get CT of the chest abdomen pelvis and head. Nephrology consult requested due to acute worsening of renal failure. Sepsis workup and renal failure workup is ongoing at this time Result Diagrams: 12/29/17 10:00 12/29/17 14:15 Significant Findings: Abnormal Lab Results 12/29/17 12/29/17 12/29/17 06:00 08:40 09:56 WBC RBC Hgb Hct MCV MCH MCHC RDW Plt Count MPV APTT 86.5 H D Sodium 127 L Potassium 5.2 H D Chloride 91 L Carbon Dioxide 13.2 L Anion Gap 23 H BUN 80 H Creatinine 3.70 H Estimated GFR 12 L POC Glucose 147 H Random Glucose 178 H Calcium 7.5 L Magnesium 2.0 Total Bilirubin 1.9 H AST 1562 H ALT 490 H Alkaline Phosphatase 135 H Total Protein 5.5 L Albumin 3.3 L 12/29/17 12/29/17 12/29/17 10:00 13:32 14:15 WBC 15.8 H D RBC 2.79 L Hgb 8.8 L Hct 27.4 L MCV 98.2 MCH 31.6 MCHC 32.2 RDW 17.7 H Plt Count 71 L D MPV 8.5 APTT 59.1 H D Sodium Potassium Chloride Carbon Dioxide Anion Gap BUN Creatinine Estimated GFR POC Glucose 91 Random Glucose Calcium Magnesium Total Bilirubin AST ALT Alkaline Phosphatase Total Protein Albumin 12/29/17 12/29/17 14:15 17:37 WBC RBC Hgb Hct MCV MCH MCHC RDW Plt Count MPV APTT Sodium 129 L Potassium 5.6 H Chloride 91 L Carbon Dioxide 13.5 L Anion Gap 25 H BUN 84 H Creatinine 3.91 H Estimated GFR 11 L POC Glucose 107 Random Glucose 78 D Calcium 7.6 L Magnesium Total Bilirubin 2.3 H AST 2730 H ALT 839 H Alkaline Phosphatase 117 Total Protein 5.6 L Albumin 3.5 Imaging: Abdomen/Pelvis CT 12/26/17 00:00 CONCLUSION: 1. There is a small volume of free fluid in the pelvis. It has a simple appearance on this examination. No specific abnormality is identified to explain the patient's sepsis. 2. Bilateral atrophic kidneys consistent with a history of renal failure. There is no hydronephrosis. 3. Nonacute findings include severe atherosclerotic disease and findings indicative of prior granulomatous infection. Please refer to chest CT report for description of the supradiaphragmatic findings. Head CT 12/26/17 05:57 CONCLUSION: 1. Limited examination of the right middle cranial and cephalad posterior fossa due to beam hardening artifact from the device in the right occipital scalp. 2. Senescent changes without acute intracranial abnormality. Multiple chest x-ray showed severe pulmonary edema Hospital Course: Patient brought is a 77-year-old [facility] resident with past medical history significant for COPD, history of respiratory failure/hypoxemia, MO in January 2017, paroxysmal atrial fibrillation, congestive heart failure, chronic kidney disease stage IV, chronic anemia and hypertension. Apparently at the [facility] nursing developed acute shortness of breath, became unresponsive and hypopneic or apneic, followed by a probable seizure. EMS found patient unresponsive, but with a palpable pulse, Her blood pressure was 57 /31, received fluid resuscitation. Patient was intubated in the emergency department as she remained unresponsive. Patient had multiple hospitalization in the past including for STEMI in January 2017. I evaluated the patient in the ED. ER workup showed a BUN of 80 creatinine of 4 her baseline creatinine is approximately 2, bicarb today was 15.5. ABG showed significant metabolic acidosis and I have requested a lactic acid. A stat EEG had been ordered as patient has no previous history of seizures. I will not start antiepileptic medications at this time. Panculture ordered, start Zosyn for pneumonia. Get CT of the chest abdomen pelvis and head. Nephrology consult requested due to acute worsening of renal failure. Sepsis workup and renal failure workup is ongoing at this time 12/27/17: Remains intubated sedated. FiO2 down to 40%, chest x-ray shows improving infiltrates. Urine output 700 mL in 24 hours. Did not follow commands but moving all extremities. Cultures are pending at this time 12/28/17: Patient tolerated CPAP trial yesterday chest x-ray had improved and was extubated yesterday however late afternoon patient developed severe pulmonary edema and was reintubated for acute respiratory distress. Postintubation chest x-ray showed severe pulmonary edema. Echo shows normal ejection fraction but diastolic dysfunction. Creatinine is 3.2 and urine output is only 900 mL in 24 hours. Give IV Lasix 60 mg x1 and 10 mg/h infusion , along with IV albumin and potassium replacement. Patient may need hemodialysis. Hypotensive currently on 10 mcg/min of Levophed 12/29/17: Remains very critical, in profound shock on 12 mcg/min of Levophed, and vasopressin 0.04 international units. Almost anuric only made 100 mL of urine last 12 hours on Lasix drip 15 mg/h. Troponin bumped to 11 yesterday and was started on IV heparin. Patient at this time is very critically ill and prognosis very poor. Over the day patient continued to deteriorate with minimal urine output, increasing Levophed requirement and vasopressin. Myself nephrology and palliative care discussed with the and indicated prognosis very poor, and it is unlikely patient will survive. He wanted to wait another 24 hours before deciding on a DNR status. I did also discuss with nephrology Dr. Shipman, and due to high doses of Levophed and vasopressin required to maintain map above 60-65, patient was deemed by both of us to be too unstable to initiate CVVH or hemodialysis Patient developed cardiac arrest and a CODE BLUE called at 190 chest compressions were initiated. Patient was on norepinephrine drip at 50 mg/min. Fluids wide open. Patient received 4 mg epinephrine, 1 ampicillin bicarbonate 1 ampoule of calcium chloride. Dopamine drip was initiated at 5mcg/kg min. Return of spontaneous circulation at 191. Stat labs ordered. Chest x-ray and EKG ordered stat. Patient was placed on transcutaneous pacing at 90 mV rate at 60 with capture. Second CODE BLUE called at 1920 chest compressions were initiated. Patient received 1 ampoule sodium bicarb, 1 g of calcium chloride, 2 doses of epinephrine 1 mg was on a dopamine drip and epinephrine drip. Remains on norepinephrine drip at 50 gail grams per minute. Discussed with Wayne due to severe critical illness, pacemaker not currently pacing despite using transcutaneous pacer and remaining hypertensive and multisystem organ failure with bright red blood from ET tube, decision made to stop code at 1928. Patient was declared at 1928 on 12/29/17
--- NOTE | 2018-01-01 06:59 | ECG ---
Date Performed: 12/26/2017 Time Performed: 10:48:04 PTAGE: 77 years EKG: ELECTRONIC VENTRICULAR PACEMAKER ABNORMAL RHYTHM ECG PREVIOUS TRACING : 03/01/2017 09.44 Compared to previous tracing, the ventricular rhythm is now 100% paced, whereas previously the rhythm was intrinsic. The electrographic tracinga are therefore n ot directly comparable DOCTOR: Emma Benites Interpretating Date/Time 01/01/2018 06:58:17
== END 2017-12-29 19:29 | disposition expired ==
LOC: NEPC 05:55 → HIMC 08:50 → NEDA 09:16 → HIMC 09:20
PROVIDERS: ADMIT Internal Medicine; ATTEND Internal Medicine